=== PATIENT | female | born 1990 | race Caucasian/White ===

== ENCOUNTER 2023-06-15 15:56 | Emergency (ER) | payer OTHER, SELFPAY ==
[2023-06-15 16:17] VITALS: BP 140/86; PULSE 84; TEMP 36.7; O2SAT 99; BMI 25.9
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
== END 2023-06-15 18:17 | disposition home or self-care (01) ==
PROVIDERS: Emergency Provider Emergency Medicine
DX: S39.012A Strain of muscle, fascia and tendon of lower back, initial encounter (principal); V43.52XA Car driver injured in collision with other type car in traffic accident, initial encounter
CPT/HCPCS: 72100; 73502; 99283

== ENCOUNTER 2023-07-14 19:10 | Outpatient (REF) | payer OTHER, SELFPAY ==
--- OUTSIDE RECORDS SUMMARY | 2023-07-14 19:16 | XMS_ITS ---
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 Name Role Phone Gosia Garcias Primary Care Unavailable Jenn Gallegos Attending Unavailable Jenn Gallegos Unavailable ROSY JENN Primary Care Unavailable MEGAN, DR INFANTE Consulting Unavailable MEGAN, DR INFANTE Attending Unavailable MEGAN, DR INFANTE Admitting Unavailable MEGAN, DR INFANTE Attending Unavailable MEGAN, DR INFANTE Admitting Unavailable [facility] Care Unavailable [facility] Primary Care Unavailable PAY, DR MONTAÑO Attending Unavailable PAY, DR MONTAÑO Admitting Unavailable PAY, DR MONTAÑO Consulting Unavailable [facility] JENN Primary Care Unavailable MEGAN, DR INFANTE Attending Unavailable MEGAN, DR INFANTE Consulting Unavailable MEGAN, DR INFANTE Admitting Unavailable MEGAN, DR INFANTE Attending Unavailable MEGAN, DR INFANTE Admitting Unavailable MEGAN, DR INFANTE Consulting Unavailable MISC, DR ASKEW Primary Care Unavailable ZIEBER, DR FRANCIA Hyde Consulting Unavailable [facility] Primary Care Unavailable MEGAN, DR INFANTE Consulting Unavailable MEGAN, DR INFANTE Attending Unavailable MEGAN, DR INFANTE Admitting Unavailable [facility] Primary Care Unavailable MEGAN, DR INFANTE Attending Unavailable MEGAN, DR INFANTE Admitting Unavailable MEGAN, DR INFANTE Consulting Unavailable [facility] Primary Care Unavailable MEGAN, DR INFANTE Attending Unavailable MEGAN, DR INFANTE Admitting Unavailable MEGAN, DR INFANTE Consulting Unavailable MEGAN, DR INFANTE Procedure Practitioner Unavailab ADDISON Oliveira Consulting Unavailable CHELSY LABOY Consulting Unavailable MARINA HOSKINS Consulting [facility] Unavailable PERLA, LYDIA Admitting Unavailable PERLALYDIA MACARIO Consulting Unavailable PERLA LYDIA Attending Unavailable [facility] Care Unavailable PERLA, LYDIA Admitting Unavailable PERLA, LYDIA Consulting Unavailable PERLA, LYDIA Attending Unavailable PERLA, LYDIA Consulting Unavailable PERLA, LYDIA Attending Unavailable JENN GALLEGOS Primary Care Unavailable PERLA, LYDIA Admitting Unavailable MEGAN, DR NIFANTE Attending Unavailable MEGAN, DR INFANTE Admitting Unavailable MEGAN, DR INFANTE Consulting Unavailable JENN GALLEGOS Primary Care Unavailable ZIEBER, DR FRANCIA Hyde Consulting Unavailable MEGAN, DR INFANTE Attending Unavailable MEGAN, DR INFANTE Admitting Unavailable MISC, DR ASKEW Primary Care Unavailable MEGAN, DR INFANTE Consulting Unavailable ROSYJENN DURHAM Primary Care Unavailable MEGAN, DR INFANTE Attending Unavailable MEGAN, DR INFANTE Admitting Unavailable AUBURN, DR KASEY Horvath Consulting Unavailable MEGAN, DR INFANTE Consulting Unavailable MEGAN, DR INFANTE Attending Unavailable MEGAN, DR INFANTE Admitting Unavailable MEGAN, DR INFANTE Consulting Unavailable JENN GALLEGOS Primary Care Unavailable KEERTHIER, DR FRANCIA Hyde Consulting Unavailable Mike Estrada Unavailable Allergies Allergy Classification Reported Allergen(s) Allergy Type Date of Onset Reaction(s) Facility (5 sources) Sulfacetamide / Sulfur Drug Allergy rash [facility] Other (1 source) Penicillins Drug allergy (disorder) 4 [facility] (1 source) Sulfonamides (Antibiotic) Drug allergy (disorder) 4 [facility] Encounters Encounter Date Encounter Type Care Provider Facility Start: 02-24-2023 End: 02-24-2023 ambulatory Jenn Gallegos Other [facility] Other Start: 02-24-2023 Encounter for genera l adult medical examination without abnormal findings Jenn Rosy [facility] [place] Start: 02-24-2023 Periodic preventive med est patient 18-39 yrs Jenn Rosy [facility] [place] Start: 05-06-2022 End: 05-06-2022 ambulatory Jenn Gallegos Other [facility] Other Start: 05-06-2022 Office outpatient vi sit 15 minutes Jenn Gallegos [facility] Start: 03-10-2022 End: 03-10-2022 ambulatory JENN GALLEGOS Facility:[facility] Start: 02-11-2022 End: 02-11-2022 ambulatory Mike Estrada Other [facility] Other Start: 02-11-2022 Encounter for genera l adult medical examination without abnormal findings Mike Estrada [facility] Start: 02-11-2022 Periodic preventive med est patient 18-39 yrs Mike Natalie [facility] Start: 12-10-2021 End: 12-11-2021 ambulatory JENN GALLEGOS Facility:[facility] Start: 11-03-2021 End: 11-05-2021 Evaluation and management of inpatient JENN GALLEGOS Facility:[facility] Start: 11-02-2021 Encounter for preprocedural laboratory examination DR ARELIS BARRETO [facility] Start: 10-31-2021 End: 11-01-2021 ambulatory JENN GALLEGOS Facility:[facility] Start: 10-31-2021 End: 11-01-2021 Encounter for preprocedural laboratory examination JENN GALLEGOS Facility:[facility] Start: 10-14-2021 End: 10-14-2021 ambulatory JENN GALLEGOS Facility:[facility] Start: 08-28-2021 End: 08-29-2021 ambulatory JENN GALLEGOS Facility:[facility] Start: 08-18-2021 End: 08-19-[address] ARELIS BARRETO Facility:[facility] Start: 07-30-2021 End: 07-31-[address] ARELIS BARRETO Facility:[facility] Start: 07-28-[address] ARELIS BARRETO Facility :[facility] Start: 07-14-2021 End: 07-15-2021 ambulatory LYDIA DUNCAN Facility:[facility] Start: 06-18-2021 End: 06-19-2021 ambulatory JENN GALLEGOS Facility:[facility] Start: 05-29-2021 End: 05-29-2021 ambulatory JENN GALLEGOS Facility:[facility] Start: 05-25-2021 End: 05-25-[address] ARELIS BARRETO Facility:[facility] Start: 04-27-2021 End: 04-28-2021 ambulatory JENN GALLEGOS Facility:[facility] Start: 03-27-2021 End: 03-28-[address] ARELIS BARRETO Facility:[facility] Start: 02-11-2021 End: 02-11-2021 ambulatory Jenn Gallegos Other [facility] Other Start: 02-11-2021 Encounter for genera l adult medical examination without abnormal findings Jenn Gallegos [facility] [place] Start: 02-11-2021 Periodic preventive med est patient 18-39 yrs Jenn Gallegos [facility] [place] Start: 02-11-2021 Telephone encounter Jenn Rosy [facility] [place] Start: 01-03-2018 End: 01-03-2018 Patient encounter procedure Gosia Garcias Facility:[facility] Immunizations Immunization Date Immunization Notes Care Provider Fa darien 04-30-2020 COVID-19 Vaccine Pfi zer - Documentation Purposes Only Jenn Gallegos Other [facility] Other 04-09-2020 COVID-19 Vaccine Pfi zer - Documentation Purposes Only eJnn Gallegos Other [facility] Other 11-28-2019 influenza, injectabl e, quadrivalent, preservative free Jenn Gallegos Other [facility] Other Medications Current Medications Medication Drug Class(es) Dates Sig (Normalized) Sig (Original) Docusate (5 sources) Colace PRN Activ e Colace Not-Takin g Colace Active hydrOXYzine hydrochloride 25 mg oral tablet (3 sources) Antihistamine take 1 tablet by mouth once daily as needed for anxiety hydrOXYzine HCl 25 MG TAKE 1 TABLET BY MOUTH ONCE A DAY NEEDED FOR ANXIETY FOR 30 DAYS PRN Active Completed/Discontinued Medications Medication Drug Class(es) Dates Sig (Normalized) Sig (Original) [id number] 200 actuat albuterol 0.09 mg/actuat metered dose inhaler (5 sources) beta2-Adrenergic Agonist take 2 puff(s) by inhalation every six hours as needed Ventolin HFA 108 (90 Base) MCG/ACT 2 puffs as needed Inhalation every 6 hrs for 30 day(s) PRN Not-Taking/PRN Albuterol Sulfate (2.5 MG/ 3 ML) 2.5 MG/3ML 0.083% Nebulization Solution (5 sources) Albuterol Sulfat e (2.5 MG/ 3 ML) 2.5 MG/3ML 0.083% Nebulization Solution 3ml Inhalation 4 times a day as needed for 30 day(s) PRN Not-Taking/PRN Albuterol Sulfat e (2.5 MG/ 3 ML) 2.5 MG/3ML 0.083% Nebulization Solution 3ml Inhalation 4 times a day as needed for 30 day(s) PRN Not-Taking Albuterol Sulfat e (2.5 MG/ 3 ML) 2.5 MG/3ML 0.083% Nebulization Solution 3ml Inhalation 4 times a day as needed for 30 day(s) PRN Active clobetasol propionate 0.0005 mg/mg topical ointment (4 sources) Corticosteroid Start: 02-20-2020 Clobetasol Propionate 0.05 % 1 application Externally Twice a day for 10 day(s) PRN Feb, Not-Taking FLUoxetine 20 mg oral tablet (4 sources) Serotonin Reuptake Inhibitor take 1 tablet by mouth every twenty-four hours FLUoxetine HCl 20 MG 1 tablet Orally Once a day for 90 day(s) Not-Taking naproxen 500 mg oral tablet (2 sources) Nonsteroidal Anti-inflammatory Drug Start: 05-06-2022 take 1 tablet by mouth every twelve hours at mealtime as needed Naproxen 500 MG 1 tablet with food or milk as needed Orally every 12 hrs for 20 days Apr, Not-Taking/PRN Payers Date Payer Category Payer Private Health Insurance [id number] 2018 Self-pay 1990 Unknown [id number] 2.16.84 [id number] 1990 Unknown [id number] 2.16.84 [id number] 1990 Unknown [id number] 2.16.84 [id number] 1990 Unknown [id number] 2.16.84 0.1.345858.3.579.2.593 1990 Unknown [id number] 2.16.84 0.1.725855.3.579.2.593 1990 Unknown [id number] 2.16.84 0.1.729944.3.579.2.593 1990 Unknown [id number] 2.16.84 0.1.689793.3.579.2.593 1990 Unknown [id number] 2.16.84 0.1.645251.3.579.2.593 1990 Unknown [id number] 2.16.84 0.1.014537.3.579.2.593 1990 Unknown [id number] 2.16.84 0.1.525807.3.579.2.593 1990 Unknown [id number] 2.16.84 0.1.098551.3.579.2.593 1990 Unknown [id number] 2.16.84 0.1.777215.3.579.2.593 1990 Unknown [id number] 2.16.84 0.1.793426.3.579.2.593 1990 Unknown [id number] 2.16.84 [id number] 1990 Unknown [id number] 2.16.84 [id number] 1959 [facility] [id number] 1959 Medicaid [id number] 1959 Unknown [id number] Unknown [id number] 2.16.840. [id number] Problems Active Problems Problem Classification Problem Date Documented Date Episodic/Chronic Anxiety disorders (10 sources) Mixed anxiety and depressive disorder; Translations: [Other specified anxiety disorders] Onset: 02-11-2021 Resolved: 02-11-2021 Chronic Asthma (9 sources) Uncomplicated moderate persistent asthma; Translations: [Moderate persistent asthma, uncomplicated] Onset: 02-11-2021 Resolved: 02-11-2021 Chronic Diabetes mellitus without complication (1 source) Diabetes mellitus without complication; Translations: [Z13.1 - Encounter for screening for diabetes mellitus] Onset: 01-03-2018 Headache; including migraine (5 sources) Chronic tension-type headache; Translations: [Chronic tension-type headache, not intractable] Chronic Immunizations and screening for infectious disease (6 sources) Encounter for screening for human papillomavirus (HPV); Translations: [Encounter for screening for infections with a predominantly sexual mode of transmission] Onset: 04-27-2021 Episodic Menstrual disorders (4 sources) Irregular menstruation, unspecified; Translations: [IRREGULAR MENSTRUATION UNSPECIFIED] Onset: 03-27-2021 Chronic Other complications of ; puerperium affecting management of mother (1 source) Anemia complicating childbirth; Translations: [ANEMIA COMPLICATING CHILDBIRTH] Onset: 11-10-2021 Chronic Other complications of ; puerperium affecting management of mother (1 source) Obesity complicating childbirth; Translations: [OBESITY COMPLICATING CHILDBIRTH] Onset: 11-10-2021 Chronic Other connective tissue disease (1 source) Other enthesopathies, not elsewhere classified Episodic Other nutritional; endocrine; and metabolic disorders (1 source) Obesity, unspecified; Translations: [OBESITY UNSPECIFIED] Onset: 11-10-2021 Chronic Other screening for suspected conditions (not mental disorders or infectious disease) (13 sources) Encounter for screening for malignant neoplasm of cervix; Translations: [Encounter for screening for Streptococcus B] Onset: 06-18-2021 Episodic Other upper respiratory infections (4 sources) Acute frontal sinusitis; Translations: [Acute frontal sinusitis, unspecified] Episodic Unclassified (1 source) CONTACT W/AND (SUSP) EXPOS COVID-19; Translations: [CONTACT W/AND (SUSP) EXPOS COVID-19] Onset: 11-02-2021 Past or Other Problems Problem Classification Problem Date Documented Date Episodic/Chronic Deficiency and other anemia (1 source) Iron deficiency anemia, unspecified; Translations: [IRON DEFICIENCY ANEMIA UNSPECIFIED] Onset: 11-10-2021 Episodic E Codes: Cut/pierceb (1 source) Contact with other sharp object(s), not elsewhere classified, initial encounter; Translations: [[facility] OB NOT ELSW CLASS INI] Onset: 06-01-2021 Episodic Hemorrhage during ; abruptio placenta; placenta previa (8 sources) Low lying placenta NOS or without hemorrhage, unspecified trimester; Translations: [Complete placenta previa NOS or without hemorrhage, unspecified trimester] Onset: 07-30-2021 Episodic Other aftercare (1 source) Other fci (current) drug therapy; Translations: [OTH SOCIAL WORKER CURRENT DRUG THERAPY] Onset: 11-10-2021 Episodic Other complications of ; puerperium affecting management of mother (1 source) Diseases of the respiratory system complicating childbirth; Translations: [DISEASES RESP SYS COMP CHILDBIRTH] Onset: 11-10-2021 Episodic Other female genital disorders (4 sources) Other specified noninflammatory disorders of vagina; Translations: [[facility] SPEC NONINFLAMMATORY D/O VAGINA] Onset: 05-25-2021 Episodic Other and delivery including normal (2 sources) Single live ; Translations: [Encounter for supervision of normal , unspecified, first trimester] Onset: 04-01-2021 Episodic Previous (3 sources) Maternal care for unspecified type scar from previous delivery; Translations: [MAT CARE UNS TYPE SCAR PREV C-SECT] Onset: 11-03-2021 Episodic Residual codes; unclassified (4 sources) Contact with and (suspected) exposure to potentially hazardous body fluids; Translations: [CONTACT AND EXPOS POTENTL HAZ BDY FLUID] Onset: 12-10-2021 Episodic Residual codes; unclassified (1 source) 39 weeks gestation of ; Translations: [39 WEEKS GESTATION OF ] Onset: 11-10-2021 Episodic Residual codes; unclassified (1 source) Less than 8 weeks gestation of ; Translations: [< 8 WEEKS GESTATION ] Onset: 04-01-2021 Episodic Screening and history of mental health and substance abuse codes (1 source) Personal history of nicotine dependence; Translations: [PERSONAL HISTORY OF NICOTINE DEPEND] Onset: 11-10-2021 Episodic Superficial injury; contusion (4 sources) Abrasion of left hand, initial encounter; Translations: [ABRASION LEFT HAND INITIAL ENC] Onset: 05-29-2021 Episodic Procedures Date Procedure Procedure Detail Performing Clinician Start: 11-03-2021 Extraction of Produc ts of Conception, Low Cervical, Open Approach JENN GALLEGOS Results Test Name Value Interpretation Reference Range Facility PAP ACOG PANEL 2: 30 to 65on 03-16-2022 . . Normal [facility] Comment on above: Result Comment: Perf ormed at: WB Performed By: #### H IV12 #### [facility] [address] [address] [address] Nolvia Ruvalcaba Age Gdln ACOG Testing 30-65 Normal [facility] Comment on above: Performed By: #### H IV12 #### [facility] [address] [address] [address] Nolvia Ruvalcaba DIAGNOSIS: Comment Normal [facility] Comment on above: Result Comment: NEGA TIVE FOR INTRAEPITHELIAL LESION OR MALIGNANCY. Performed at: WB Performed By: #### H IV12 #### [facility] [address] [address] [address] Nolvia Ruvalcaba HPV Aptima Negative Normal Negative [facility] Comment on above: Result Comment: This nucleic acid amplification test detects fourteen high-risk HPV types (16,18,31,33,35,39,45,51,52,56,58,59,66,68) without differentiation. Performed at: =G Performed By: #### H IV12 #### [facility] [address] [address] [address] Nolvia Ruvalcaba HPV Genotype Reflex Comment Normal [facility] Comment on above: Result Comment: Crit eria not met, HPV Genotype not performed. Performed at: WB Performed By: #### H IV12 #### [facility] [address] [address] [address] Nolvia Ruvalcaba Methodology: Comment Normal [facility] Comment on above: Result Comment: This liquid based ThinPrep(R) pap test was screened with the use of an image guided system. Performed at: WB Performed By: #### H IV12 #### [facility] [address] [address] [address] Nolvia Ruvalcaba Note: Comment Normal [facility] Comment on above: Result Comment: The Pap smear is a screening test designed to aid in the detection of premalignant and malignant conditions of the uterine cervix. It is not a diagnostic procedure and should not be used as the sole means of detecting cervical cancer. Both false-positive and false-negative reports do occur. . Performed at: WB Performed By: #### H IV12 #### [facility] [address] [place] [address] Dr. Nolvia Ruvalcaba Performed by: Comment Normal [facility] Comment on above: Result Comment: Angel Sanchez Service Control Operator (ASCP) Performed at: WB Performed By: #### H IV12 #### [facility] [address] [place] [address] Dr. Nolvia Ruvalcaba Specimen adequacy: Comment Normal [facility] Comment on above: Result Comment: Sati sfactory for evaluation. Endocervical and/or squamous metaplastic cells (endocervical component) are present. Performed at: WB Performed By: #### H IV12 #### [facility] [address] [place] [address] Dr. Nolvia Ruvalcaba HEPATITIS C ANTIBODYon 12-11 Hep C Virus Ab <0.1 Normal 0.0-0.9 [facility] Comment on above: Result Comment: Nega tive: < 0.8 Indeterminate: 0.8 - 0.9 Positive: > 0.9 . HCV antibody alone does not differentiate between previous resolved infection and active infection. The CDC and current clinical guidelines recommend that a positive HCV antibody result be followed up with an HCV RNA test to support the diagnosis of acute HCV infection. [facility] offers Hepatitis C Virus (HCV) RNA, Diagnosis, THERON (739333) and Hepatitis C Virus (HCV) Antibody with reflex to Quantitative Real-time PCR (100569). Performed By: #### H IV12 #### [facility] [address] [place] [address] Dr. Nolvia Ruvalcaba HIV 1 AND 2 WITH REFLEXon HIV Screen 4th Generation wRfx Non-Reactive Normal Non Reactive [facility] Comment on above: Result Comment: HIV Negative HIV-1/HIV-2 antibodies and HIV-1 p24 antigen were NOT detected. There is no laboratory evidence of HIV infection. Performed By: #### H IV12 #### [facility] [address] [place], [place] [address] Dr. Nolvia Ruvalcaba SGPTon 12-10-2021 ALT [Catalytic activity/Vol] 59 U/L Normal 14-59 [facility] Comment on above: Performed By: #### A LT ####[facility] [address] [place], [place] [address]DrDinorah Ruvalcaba CBC AUTO DIFFon 11-04-2021 BASO # 0.1 103/ul Normal 0.0-0.1 [facility] Comment on above: Performed By: #### C BC ####[facility] [address] [address]DrDinorah Ruvalcaba Basophils/100 WBC (Bld) 0.4 % Normal 0.2-2.0 [facility] Comment on above: Performed By: #### C BC ####[facility] [address] [place], [place] [address]Dr. Nolvia Ruvalcaba EO # 0.2 103/ul Normal 0.0-0.7 [facility] Comment on above: Performed By: #### C BC ####[facility] [address] [place], [place] [address]DrDinorah Ruvalcaba Eosinophils/100 WBC (Bld) 1.3 % Normal 0.9-7.0 [facility] Comment on above: Performed By: #### C BC ####[facility] [address] [place], [place] [address]DrDinorah Ruvalcaba Erythrocyte distribution width (RBC) [Ratio] 14.2 % Normal 11.0-15.0 [facility] Comment on above: Performed By: #### C BC ####[facility] [address] [place], [place] [address]DrDinorah Ruvalcaba Hematocrit (Bld) [Volume fraction] 28.8 % Critically low 36.0-48.0 [facility] Comment on above: Performed By: #### C BC ####[facility] [address] [place], [place] [address]DrDinorah Ruvalcaba Hemoglobin (Bld) [Mass/Vol] 9.0 g/dL Critically low 12.0-16.0 [facility] Comment on above: Performed By: #### C BC ####[facility] [address] [address]DrDinorah Ruvalcaba IG # 0.16 10e3/ul Critically high 0.00-0.03 [facility] Comment on above: Performed By: #### C BC ####[facility] [address] [address]DrDinorah Ruvalcaba IG % 1.1 % Critically high 0.0-0.5 [facility] Comment on above: Performed By: #### C BC ####[facility] [address] [place], [place] [address]DrDinorah Ruvalcaba LYMPH # 1.8 103/ul Normal 1.2-3.8 [facility] Comment on above: Performed By: #### C BC ####[facility] [address] [address]DrDinorah Ruvalcaba Lymphocytes/100 WBC (Bld) 12.4 % Critically low 20.5-60.0 [facility] Comment on above: Performed By: #### C BC ####[facility] [address] [address]DrDinorah Ruvalcaba MANUAL DIFF REQ NO Normal [facility] Comment on above: Performed By: #### C BC ####[facility] [address] [address]DrDinorah Ruvalcaba MCH (RBC) [Entitic mass] 28.6 pg Normal 26.7-34.0 [facility] Comment on above: Performed By: #### C BC ####[facility] [address] [address]DrDinorah Ruvalcaba MCHC (RBC) [Mass/Vol] 31.3 g/dL Normal 29.9-35.2 [facility] Comment on above: Performed By: #### C BC ####[facility] [address] [address]DrDinorah Ruvalcaba MCV (RBC) [Entitic vol] 91.4 fL Normal 81.0-99.0 [facility] Comment on above: Performed By: #### C BC ####[facility] [address] [address]DrDinorah Ruvalcaba MONO # 1.0 103/ul Critically high 0.3-0.8 [facility] Comment on above: Performed By: #### C BC ####[facility] [address] [address]DrDinorah Ruvalcaba Monocytes/100 WBC (Bld) 6.9 % Normal 1.7-12.0 [facility] Comment on above: Performed By: #### C BC ####[facility] [address] [address]DrDinorah Ruvalcaba NEUT # 11.3 103/ul Critically high 1.4-6.5 [facility] [place] [facility] Comment on above: Performed By: #### C BC ####[facility] [address] [place], [place] [address]DrDinorah Ruvalcaba Neutrophils/100 WBC (Bld) 77.9 % Critically high 43.0-75.0 [facility] Comment on above: Performed By: #### C BC ####[facility] [address] [place], [place] [address]DrDinorah Ruvalcaba Platelet mean volume (Bld) [Entitic vol] 9.8 fL Normal 9.5-13.5 [facility] Comment on above: Performed By: #### C BC ####[facility] [address] [address]Dr. Nolvia Ruvalcaba PLT 242 103/ul Normal 150-450 [facility] Comment on above: Performed By: #### C BC ####[facility] [address] [id number] Ruvalcaba RBC 3.15 106/ul Critically low 4.20-5.40 [facility] Comment on above: Performed By: #### C BC ####[facility] [address] [id number] Ruvalcaba WBC 14.6 103/ul Critically high 4.0-11.0 [facility] [place] [facility] Comment on above: Performed By: #### C BC ####[facility] [address] [address]Dr. Nolvia Jordon CBC AUTO DIFFon 11-03-2021 BASO # 0.1 103/ul Normal 0.0-0.1 [facility] Comment on above: Performed By: #### C BC ####[facility] [address] [address]Dr. Nolvia Ruvalcaba Basophils/100 WBC (Bld) 0.3 % Normal 0.2-2.0 [facility] Comment on above: Performed By: #### C BC ####[facility] [address] [place], [place] [address]Dr. Nolvia Ruvalcaba EO # 0.1 103/ul Normal 0.0-0.7 [facility] Comment on above: Performed By: #### C BC ####[facility] [address]wepjvwc[address] [place], [place] [address]Dr. Nolvia Ruvalcaba Eosinophils/100 WBC (Bld) 1.0 % Normal 0.9-7.0 [facility] Comment on above: Performed By: #### C BC ####[facility] Sqqhexuvea[address] [place], [place] [address]Dr. Nolvia Ruvalcaba Erythrocyte distribution width (RBC) [Ratio] 14.2 % Normal 11.0-15.0 [facility] Comment on above: Performed By: #### C BC ####[facility] Mpuyzykeyh308[address] [place], [place] [address]Dr. Nolvia Ruvalcaba Hematocrit (Bld) [Volume fraction] 33.5 % Critically low 36.0-48.0 [facility] Comment on above: Performed By: #### C BC ####[facility] Rxldampkml9814[address] [place], [place] [address]Dr. Nolvia Ruvalcaba Hemoglobin (Bld) [Mass/Vol] 10.9 g/dL Critically low 12.0-16.0 [facility] Comment on above: Performed By: #### C BC ####[facility] Ypxumzwfim620[address] [place], [place] [address]DrDinorah Nickersonyaniv Jordon IG # 0.22 10e3/ul Critically high 0.00-0.03 [facility] Comment on above: Performed By: #### C BC ####[facility] [address] [place] [address]DrDinorah Nolvia Jordon IG % 1.5 % Critically high 0.0-0.5 [facility] Comment on above: Performed By: #### C BC ####[facility] [address] [place] [address]DrDinorah Nickersonyaniv Jordon LYMPH # 2.3 103/ul Normal 1.2-3.8 [facility] Comment on above: Performed By: #### C BC ####[facility] Kljuuygnnn[address] [place], [place] [address]DrDinorah Ruvalcaba Lymphocytes/100 WBC (Bld) 16.1 % Critically low 20.5-60.0 [facility] Comment on above: Performed By: #### C BC ####[facility] Nfiukgwhde[address] [place], [place] [address]DrDinorah Liyayaniv Ruvalcaba MANUAL DIFF REQ NO Normal [facility] Comment on above: Performed By: #### C BC ####[facility] Ufvimkqwni7[address] [place], [place] [address]DrDinorah Nolvia Jordon MCH (RBC) [Entitic mass] 29.0 pg Normal 26.7-34.0 [facility] Comment on above: Performed By: #### C BC ####[facility] Ytluvmxcgn654[address] [place], [place] [address]DrDinorah Nolvia Jordon MCHC (RBC) [Mass/Vol] 32.5 g/dL Normal 29.9-35.2 [facility] Comment on above: Performed By: #### C BC ####[facility] Qyfgczyuzw52[address] [place], [place] [address]DrDinorah Nolvia Jordon MCV (RBC) [Entitic vol] 89.1 fL Normal 81.0-99.0 [facility] Comment on above: Performed By: #### C BC ####[facility] Jqqseosqbf[address] [place], [place] [address]DrDinorah Ruvalcaba MONO # 1.0 103/ul Critically high 0.3-0.8 [facility] Comment on above: Performed By: #### C BC ####[facility] [address] [place] [address]Dr. Nolvia Ruvalcaba Monocytes/100 WBC (Bld) 7.0 % Normal 1.7-12.0 [facility] Comment on above: Performed By: #### C BC ####[facility] [address] [place] [address]Dr. Nolvia Ruvalcaba NEUT # 10.6 103/ul Critically high 1.4-6.5 [facility] Comment on above: Performed By: #### C BC ####[facility] Gtxgujchal208[address] [place], [place] [address]Dr. Nolvia Ruvalcaba Neutrophils/100 WBC (Bld) 74.1 % Normal 43.0-75.0 [facility] Comment on above: Performed By: #### C BC ####[facility] Bzyjmlsnbh[address] [place], [place] [address]Dr. Nolvia Ruvalcaba Platelet mean volume (Bld) [Entitic vol] 10.4 fL Normal 9.5-13.5 [facility] Comment on above: Performed By: #### C BC ####[facility] [address] [place] [address]Dr. Nolvia Ruvalcaba PLT 320 103/ul Normal 150-450 [facility] Comment on above: Performed By: #### C BC ####[facility] Ihqfdrawyk[address] [place], [place] [address]Dr. Nolvia Ruvalcaba RBC 3.76 106/ul Critically low 4.20-5.40 [facility] Comment on above: Performed By: #### C BC ####[facility] Guvbnrzppl[address] [place], [place] [address]Dr. Nolvia Ruvalcaba WBC 14.3 103/ul Critically high 4.0-11.0 [facility] Comment on above: Performed By: #### C BC ####[facility] S[address]uglmycwn[address] [place], [place] [address]Dr. Nolvia Ruvalcaba CULTURE URINEon 11-03-2021 CULTURE URINE Culture Observations : NO GROWTH. Normal [facility] Comment on above: Performed By: #### U RCX #### [facility] [id number] Nolvia Ruvalcaba DRUG SCREEN RAPID (URINE)on 11-03-2021 AMP Negative Normal NEGATIVE [facility] Comment on above: Performed By: #### D RUGRPD ####[facility] [address] [place] [address]Dr. Nolvia Ruvalcaba BAR Negative Normal NEGATIVE [facility] Comment on above: Performed By: #### D RUGRPD ####[facility] [address] [place] [address]Dr. Nolvia Ruvalcaba BUP Negative Normal NEGATIVE [facility] Comment on above: Performed By: #### D RUGRPD ####[facility] [address] [place] [address]Dr. Nolvia Ruvalcaba BZO Negative Normal NEGATIVE [facility] Comment on above: Performed By: #### D RUGRPD ####[facility] [address] [place] [address]Dr. Nolvia Ruvalcaba MARIO Negative Normal NEGATIVE [facility] Comment on above: Performed By: #### D RUGRPD ####[facility] [address] [place] [address]Dr. Nolvia Ruvalcaba CUT-OFFS SEE BELOW Normal [facility] Comment on above: Result Comment: AMP (Amphetamine): 500ng/mL, BAR (Barbituates): 200 ng/mL, BZO (Benzodiazepines): 150 ng/mL, BUP (Buprenorphine): 10 ng/mL, MARIO (Cocaine): 150 ng/mL, mAMP (Methamphetamine): 500 ng/mL, MTD (Methadone): 200 ng/mL, OPI (Opiates): 100 ng/mL, OXY (Oxycodone): 100 ng/mL, PCP (Phencyclidine): 25 ng/mL, PPX (Propoxyphene): 300 ng/mL, THC (Cannabinoids): 50 ng/mL, TCA (Trycyclic Antidepressants): 300 ng/mL Performed By: #### D RUGRPD ####[facility] [address] [place] [id number]. Nolvia Ruvalcaba DRUG CUT HEADER DRUG CLASS TEST SYSTEM CUT-OFF CONCENTRATIONS ARE FOLLOWS: Normal [facility] Comment on above: Performed By: #### D RUGRPD ####[facility] [address] [place] [id number]. Nolvia Ruvalcaba mAMP Negative Normal NEGATIVE [facility] Comment on above: Performed By: #### D RUGRPD ####[facility] [address]psq[address] [place] [id number]. Nolvia Ruvalcaba MTD Negative Normal NEGATIVE [facility] Comment on above: Performed By: #### D RUGRPD ####[facility] Lwtmevjrfr[address] [place], [place] [address]Dr. Yiyaniv Ruvalcaba OPI Negative Normal NEGATIVE [facility] Comment on above: Performed By: #### D RUGRPD ####[facility] Fgtbuwxmve[address] [place], [place] [address]Dr. Yilan Ruvalcaba OXY Negative Normal NEGATIVE [facility] Comment on above: Performed By: #### D RUGRPD ####[facility] Fkwjwruakx[address] [place], [place] [address]Dr. Nolvia Ruvalcaba PCP Negative Normal NEGATIVE [facility] Comment on above: Performed By: #### D RUGRPD ####[facility] [address] [place] [id number]. Yilan Ruvalcaba PPX Negative Normal NEGATIVE [facility] Comment on above: Performed By: #### D RUGRPD ####[facility] [address] [place] [id number]. Yiyaniv Ruvalcaba TCA Negative Normal NEGATIVE [facility] Comment on above: Performed By: #### D RUGRPD ####[facility] Mg[address]psapbbf[address] [place], [place] [address]Dr. Nolvia Ruvalcaba THC Negative Normal NEGATIVE [facility] Comment on above: Performed By: #### D RUGRPD ####[facility] Vfkanphbob[address] [place], [place] [address]Dr. Liyalan Ruvalcaba TYPE AND SCREENon 11-03-2021 TYPE AND SCREEN Negative Normal [facility] Comment on above: Performed By: #### T NS #### [facility] [address] [address] [address] Nolvia Ruvalcaba UA (CLEAN/CATCH) SURGICAL SCRUB TECHNOLOGIST/MICRO I F IND.on 11-03-2021 Bilirubin Ql (U) Negative Normal NEGATIVE [facility] Comment on above: Performed By: #### U MICRO, UACSIND ####[facility] [address] [place] [address]Dr. Nolvia Ruvalcaba Clarity (U) SL CLOUDY Abnormal CLEAR [facility] Comment on above: Performed By: #### U MICRO, UACSIND ####[facility] [address] [place] [address]Dr. Nolvia Ruvalcaba Color (U) LT. YELLOW Normal YELLOW [facility] Comment on above: Performed By: #### U MICRO, UACSIND ####[facility] [address] [place] [address]Dr. Nolvia Ruvalcaba Glucose Ql (U) Negative Normal NEGATIVE The [facility] Comment on above: Performed By: #### U MICRO, UACSIND ####[facility] [address] [place] [address]Dr. Nolvia Ruvalcaba Hemoglobin Ql (U) SMALL Abnormal NEGATIVE The [facility] Comment on above: Performed By: #### U MICRO, UACSIND ####[facility] [address] [place] [address]Dr. Nolvia Ruvalcaba Ketones Ql (U) Negative Normal NEGATIVE The [facility] Comment on above: Performed By: #### U MICRO, UACSIND ####[facility] [address] [place] [address]Dr. Nolvia Ruvalcaba LEUKOCYTES SMALL Abnormal NEGATIVE [facility] Comment on above: Performed By: #### U MICRO, UACSIND ####[facility] [address] [place] [address]Dr. Nolvia Ruvalcaba Nitrite Ql (U) Negative Normal NEGATIVE The [facility] Comment on above: Performed By: #### U MICRO, UACSIND ####[facility] [address]pec[address] [place] [address]Dr. Nolvia Ruvalcaba pH (U) 6.0 [pH] Normal 5-9 [facility] Comment on above: Performed By: #### U MICRO, UACSIND ####[facility] [address]sp[address] [place] [address]Dr. Nolvia Ruvalcaba SPEC GRAVITY >=1.030 Abnormal 1.005-<=1.025 [facility] Comment on above: Performed By: #### U MICRO, UACSIND ####[facility] [address] [place] [address]Dr. Nolvia Ruvalcaba UA PROTEIN Negative Normal NEGATIVE/ TRACE [facility] Comment on above: Performed By: #### U MICRO, UACSIND ####[facility] [address] [place] [address]Dr. Nolvia Ruvalcaba UR MICRO IND INDICATED Normal [facility] Comment on above: Performed By: #### U MICRO, UACSIND ####[facility] [address] [place] [address]Dr. Nolvia Ruvalcaba Urobilinogen Qn (U) 0.2 {Cami'U}/dL Normal 0.2 - 1. 0 [facility] Comment on above: Performed By: #### U MICRO, UACSIND ####[facility] Mgkginmkph[address] [place], [place] [address]Dr. Nolvia Ruvalcaba URINE MICROSCOPIC ONLYon BACTERIA MODERATE Abnormal NONE SEEN [facility] Comment on above: Performed By: #### U MICRO, UACSIND ####[facility] Xsivaiggfq[address] [place], [place] [address]Dr. Nolvia Ruvalcaba Bacteria identified Cx Nom (U) INDICATED Normal [facility] Comment on above: Performed By: #### U MICRO, UACSIND ####[facility] T[address]dv[address]fdq[address] [place], [place] [address]Dr. Nolvia Ruvalcaba CAST NONE SEEN Normal NONE SEEN [facility] Comment on above: Performed By: #### U MICRO, UACSIND ####[facility] Wyudwewbbp[address] [place], [place] [address]Dr. Nolvia Ruvalcaba Crystals LM Nom (Urine sed) NONE SEEN Normal NONE SEEN [facility] Comment on above: Performed By: #### U MICRO, UACSIND ####[facility] [address] [place] [address]Dr. Nolvia Ruvalcaba Epithelial cells LM Ql (Urine sed) MODERATE Abnormal NONE SEEN /RARE [facility] Comment on above: Performed By: #### U MICRO, UACSIND ####[facility] [address] [place] [id number]. Nolvia Ruvalcaba MUCOUS NONE SEEN Normal NONE SEEN [facility] Comment on above: Performed By: #### U MICRO, UACSIND ####[facility] [address] [place] [address]Dr. Liyayaniv Ruvalcaba RBC 2-5 Abnormal 0-2 [facility] Comment on above: Performed By: #### U MICRO, UACSIND ####[facility] [address] [place] [address]Dr. Nolvia Ruvalcaba WBC 5-10 Abnormal NONE SEEN [facility] Comment on above: Performed By: #### U MICRO, UACSIND ####[facility] [address] [place] [address]Dr. Nolvia Ruvalcaba [facility]on [facility]-15 SARS-CoV-2 (COVID-19) RNA THERON+probe Ql (Unsp spec) Not detected Normal NOT DETECTED [facility] Comment on above: Result Comment: This test is not yet approved or cleared by the [place] FDA. When there are no FDA-approved or cleared tests available, and other criteria are met, FDA can make tests available under an emergency access mechanism called an Emergency Use Authorization (EUA). The EUA for this test is supported by the Professor Of Geology of Health and Human Service's (HHS's) declaration that circumstances exist to justify the emergency use of in vitro diagnostics for the detection and/or diagnosis of the virus that causes COVID-19. This EUA will remain in effect (meaning this test can be used) for the duration of the COVID-19 declaration justifying emergency of IVDs, unless it is terminated or revoked by FDA (after which the test may no longer be used). When diagnostic testing is negative, the possibility of a false negative should be considered in the context of a patient's recent exposures and the presence of clinical signs and symptoms consistent with SARS-CoV-2. Performed By: #### H IV12 #### [facility] [address] [address] [address] Nolvia Ruvalcaba GROUP B STREP CULTUREon 09-16 S. agalactiae Ag Ql (Unsp spec) Culture Observations: NEGATIVE FOR GROUP B STREPTOCOCCUS. Normal [facility] Comment on above: Performed By: #### G BSCX #### [facility] [address] [address] [address] Nolvia Ruvalcaba HEP C RNA BY PCR QUANT (NON- GRAPHICAL) Won 08-29-2021 HCV Genotype RTNI Normal [facility] Comment on above: Result Comment: Not indicated Performed By: #### H CVPCRN ####[facility] [address] [place] [address]DrDinorah Ruvalcaba HCV log10 UPTCAL Normal [facility] Comment on above: Result Comment: Unab le to calculate result since non-numeric result obtained for component test. Performed By: #### H CVPCRN ####[facility] [address] [place] [address]DrDinorah Ruvalcaba Hepatitis C Quantitation Not detected Normal [facility] Comment on above: Performed By: #### H CVPCRN ####[facility] [address] [place] [address]DrDinorah Ruvalcaba Test Information: Comment Normal [facility] Comment on above: Result Comment: The quantitative range of this assay is 15 IU/mL to 100 million IU/mL. Performed By: #### H CVPCRN ####[facility] [address] [place] [address]DrDinorah Ruvalcaba HIV 1 AND 2 WITH REFLEXon HIV Screen 4th Generation wRfx Non-Reactive Normal Non Reactive [facility] Comment on above: Result Comment: HIV Negative HIV-1/HIV-2 antibodies and HIV-1 p24 antigen were NOT detected. There is no laboratory evidence of HIV infection. Performed By: #### A 1C #### [facility] [address] [address] [address] Nolvia Ruvalcaba RPR QUANTon 08-29-2021 Rapid Plasma Reagin, Quant Non-Reactive Normal NonRea<1:1 [facility] Comment on above: Result Comment: Meghna desai Note: This test does not meet current guidelines for screening and diagnosis of syphilis. This test is intended for following treatment response in patients being treated for syphilis infection. To screen for syphilis infection, a reflex cascade that includes both RPR and a treponema-specific assay should be utilized, such as Treponema pallidum (Syphilis) Screening Baker (968908) or Rapid Plasma Reagin (RPR) Test With Reflex to Quantitative RPR and Confirmatory Treponema pallidum Antibodies (527415). Performed By: #### H IV12 #### [facility] [address] [place] [address] Dr. Nolvia Ruvalcaba GLUCOSE - 1HRon 08-18-2021 Glucose [Mass/Vol] 124 mg/dL Critically high 74-106 [facility] Comment on above: Performed By: #### G LU1HR ####[facility] [address] [place] [address]Dr. Nolvia Ruvalcaba HEMOGRAM AND PLATELon 2021 Hematocrit (Bld) [Volume fraction] 33.2 % Critically low 36.0-48.0 [facility] Comment on above: Performed By: #### H IV12 #### [facility] [address] [place] [address] Dr. Nolvia Ruvalcaba Hemoglobin (Bld) [Mass/Vol] 10.5 g/dL Critically low 12.0-16.0 [facility] Comment on above: Performed By: #### H IV12 #### [facility] [address] [place] [address] Dr. Nolvia Ruvalcaba MCH (RBC) [Entitic mass] 29.4 pg Normal 26.7-34.0 [facility] Comment on above: Performed By: #### H IV12 #### [facility] [address] [place] [address] Dr. Nolvia Ruvalcaba MCHC (RBC) [Mass/Vol] 31.6 g/dL Normal 29.9-35.2 [facility] Comment on above: Performed By: #### H IV12 #### [facility] [address] [address] [address] Nolvia Ruvalcaba MCV (RBC) [Entitic vol] 93.0 fL Normal 81.0-99.0 [facility] Comment on above: Performed By: #### H IV12 #### [facility] [address] [address] [address] Nolvia Ruvalcaba PLT 303 103/ul Normal 150-450 [facility] Comment on above: Performed By: #### H IV12 #### [facility] [address] [address] [address] Nolvia Ruvalcaba RBC 3.57 106/ul Critically low 4.20-5.40 [facility] Comment on above: Performed By: #### H IV12 #### [facility] [address] [address] [address] Nolvia Ruvalcaba WBC 12.3 103/ul Critically high 4.0-11.0 [facility] Comment on above: Performed By: #### H IV12 #### [facility] [address] [place] [address] Dr. Nolvia Ruvalcaba US PREG PLACENTAon 2 US PREG PLACENTA EXAMINATION: US PREG PLACENTA HISTORY: Low lying placenta COMPARISON: Ultrasound placenta 07/30/2021 FINDINGS: PLACENTA: Posterior with lower margin 3.8 cm from os. CERVIX LENGTH: 4.6 cm; closed. HEART RATE: 138 bpm OTHER: None. IMPRESSION: 1. Posterior placenta which is no longer low-lying. Electronically authenticated by: FRANCIA CRENSHAW Date: 2021-08-18 16:15 Normal [facility] US PREG PLACENTAon 2 US PREG PLACENTA EXAMINATION: US PREG PLACENTA HISTORY: Placenta previa without hemorrhage COMPARISON: Ultrasound anatomy 06/18/2021 FINDINGS: PLACENTA: Posterior, grade 1, with lower margin 2.5 cm from os. CERVIX LENGTH: 3.7 cm, closed. HEART RATE: 134 bpm OTHER: None. IMPRESSION: 1. Low lying posterior placenta with margin 2.5 cm from os. Electronically authenticated by: FRANCIA CRENSHAW Date: 2021-07-30 17:39 Normal [facility] HEP C RNA BY PCR QUANT (NON- GRAPHICAL) Won 07-16-2021 HCV Genotype RTNI Normal [facility] Comment on above: Result Comment: Not indicated Performed By: #### H CVPCRN ####[facility] [address]vnswx[address] [place], [place] [address]Dr. Nolvia Ruvalcaba HCV log10 UPTCAL Normal [facility] Comment on above: Result Comment: Unab le to calculate result since non-numeric result obtained for component test. Performed By: #### H CVPCRN ####[facility] [address]ju[address] [place], [place] [address]Dr. Nolvia Ruvalcaba Hepatitis C Quantitation Not detected Normal [facility] Comment on above: Performed By: #### H CVPCRN ####[facility] Q[address]zrlqe[address] [place], [place] [address]Dr. Nolvia Ruvalcaba Test Information: Comment Normal [facility] Comment on above: Result Comment: The quantitative range of this assay is 15 IU/mL to 100 million IU/mL. Performed By: #### H CVPCRN ####[facility] [address]jsxsubu[address] [place], [place] [address]Dr. Nolvia Ruvalcaba HIV 1 AND 2 WITH REFLEXon HIV Screen 4th Generation wRfx Non-Reactive Normal Non Reactive [facility] Comment on above: Result Comment: HIV Negative HIV-1/HIV-2 antibodies and HIV-1 p24 antigen were NOT detected. There is no laboratory evidence of HIV infection. Performed By: #### H IV12 ####[facility] [address]tm[address]zpyks[address] [place], [place] [address]Dr. Nolvia Ruvalcaba RPR QUANTon 07-15-2021 Rapid Plasma Reagin, Quant Non-Reactive Normal NonRea<1:1 [facility] Comment on above: Result Comment: Plea se Note: This test does not meet current guidelines for screening and diagnosis of syphilis. This test is intended for following treatment response in patients being treated for syphilis infection. To screen for syphilis infection, a reflex cascade that includes both RPR and a treponema-specific assay should be utilized, such as Treponema pallidum (Syphilis) Screening Baker (001533) or Rapid Plasma Reagin (RPR) Test With Reflex to Quantitative RPR and Confirmatory Treponema pallidum Antibodies ([id number]). Performed By: #### R PRQ #### [facility] [address] [address] [address] Nolvia Ruvalcaba US PREG ANATOMY SINGLEon US PREG ANATOMY SINGLE EXAMINATION: US PREG ANATOMY SINGLE HISTORY: screening COMPARISON: No relevant comparison available. TECHNIQUE: Transabdominal sonographic examination was performed for obstetrical and evaluation. FINDINGS: Number: 1 Heart Rate: 144.0 bpm H.B. /min Amniotic Fluid Volume: Subjectively normal position: Breech presentation, longitudinal lie Placental Location: Posterior. Grade 0. The placenta edge is at the internal cervical os Cervix Length: 4.6 cm, closed Normally visualized anatomy: Cerebellum, choroid plexus, cisterna magna, lateral cerebral ventricles, orbits, midline falx, hard palate, four-chamber heart, RVOT, LVOT, stomach, kidneys, bladder, umbilical cord insertion into the abdomen, three-vessel cord, cervical spine, thoracic spine, lumbar spine, sacral spine, right upper extremity, left upper extremity, right lower extremity, left lower extremity Suboptimally visualized anatomy: None BIOMETRY: BPD: 4.4 cm 19 weeks 3 days , 13% HC: 16.7 cm 19 weeks 3 days, 6% AC: 14.9 cm 20 weeks 1 days, 34% FL: 3.2 cm 19 weeks 6 days, 21% EFW:319.2 grams; 11 ounces, 19% FL/AC: 21.2 FL/BPD: 71.1 HC/AC: 1.1 GESTATIONAL AGE: Age by EDC: 20 weeks 3 days BRO by EDC: 11/02/2021 Age by current US: 19 weeks 5 days BRO by current US: 11/07/2021 IMPRESSION: Normal anatomy scan *Reference: [employer] Practice Guideline for the performance of Obstetric Ultrasound Examinations, November 14, 2006. Electronically authenticated by: KASEY NYE Date: 2021-06-18 16:55 Normal [facility] HEP B SURFACE AB QUALITATIVE on 05-30-2021 Hep B Surface Ab, Qual Reactive Normal [facility] Comment on above: Result Comment: Non Reactive: Inconsistent with immunity, less than 10 mIU/mL Reactive: Consistent with immunity, greater than 9.9 mIU/mL Performed By: #### H BSABQL ####[facility] [address] [place] [id number]. Nolvia Ruvalcaba HEPATITIS C ANTIBODYon 05-30 Hep C Virus Ab <0.1 Normal 0.0-0.9 [facility] Comment on above: Result Comment: Nega tive: < 0.8 Indeterminate: 0.8 - 0.9 Positive: > 0.9 . The CDC recommends that a positive HCV antibody result be followed up with a HCV Nucleic Acid Amplification test ([id number]). Performed By: #### H IV12 #### [facility] [address] [address] [address] Nolvia Ruvalcaba HIV 1 AND 2 WITH REFLEXon HIV Screen 4th Generation wRfx Non-Reactive Normal Non Reactive [facility] Comment on above: Result Comment: HIV Negative HIV-1/HIV-2 antibodies and HIV-1 p24 antigen were NOT detected. There is no laboratory evidence of HIV infection. Performed By: #### H IV12 ####[facility] [address] [id number]. Nolvia Ruvalcaba RPR QUANTon 05-30-2021 Rapid Plasma Reagin, Quant Non-Reactive Normal NonRea<1:1 [facility] Comment on above: Result Comment: Plea se Note: This test does not meet current guidelines for screening and diagnosis of syphilis. This test is intended for following treatment response in patients being treated for syphilis infection. To screen for syphilis infection, a reflex cascade that includes both RPR and a treponema-specific assay should be utilized, such as Treponema pallidum (Syphilis) Screening Baker (670399) or Rapid Plasma Reagin (RPR) Test With Reflex to Quantitative RPR and Confirmatory Treponema pallidum Antibodies ([id number]). Performed By: #### R PRQ ####[facility] [address] [id number] Ruvalcaba CHLAMYDIA/GONOCOCCUS THERON (SW AB/URINE/PAPon 05-28-2021 Chlamydia trachomatis, THERON Negative Normal Negative [facility] Comment on above: Performed By: #### C T/NGNA ####[facility] [address] [address]Dr. Nolvia Ruvalcaba Neisseria gonorrhoeae, THERON Negative Normal Negative [facility] Comment on above: Performed By: #### C T/NGNA ####[facility] [address] [address]Dr. Nolvia Ruvalcaba VAGINITIS/VAGINOSIS DNA PROB Edson 05-27-2021 Arielle species Negative Normal Negative [facility] Comment on above: Performed By: #### H IV12 #### [facility] [address] [address] [address] Nolvia Ruvalcaba Gardnerella vaginalis Negative Normal Negative [facility] Comment on above: Performed By: #### H IV12 #### [facility] [address] [address] [address] Nolvia Ruvalcaba Trichomonas vaginalis Negative Normal Negative [facility] Comment on above: Performed By: #### H IV12 #### [facility] [address] [address] [address] Nolvia Ruvalcaba HEP B SURFACE ANTIGEN SCREEN on 04-28-2021 HBsAg Screen Negative Normal Negative [facility] Comment on above: Performed By: #### H BSANS ####[facility] [address] [address]Dr. Nolvia Ruvalcaba HEPATITIS C VIRUS AB W/ REFL EX QUANTon 04-28-2021 HCV AB <0.1 Normal 0.0-0.9 [facility] Comment on above: Performed By: #### H CVPCRR ####[facility] [address] [address]Dr. Nolvia Ruvalcaba Interpretation: Comment Normal [facility] Comment on above: Result Comment: Nega tive Not infected with HCV, unless recent infection is suspected or other evidence exists to indicate HCV infection. Performed By: #### H CVPCRR ####[facility] [address] [address]Dr. Nolvia Ruvalcaba HIV 1 AND 2 WITH REFLEXon HIV Screen 4th Generation wRfx Non-Reactive Normal Non Reactive [facility] Comment on above: Result Comment: HIV Negative HIV-1/HIV-2 antibodies and HIV-1 p24 antigen were NOT detected. There is no laboratory evidence of HIV infection. Performed By: #### H IV12 #### [facility] [address] [place] [address] Dr. Nolvia Ruvalcaba RPR QUANTon 04-28-2021 Rapid Plasma Reagin, Quant Non-Reactive Normal NonRea<1:1 [facility] Comment on above: Performed By: #### R PRQ ####[facility] [address] [address]Dr. Nolvia Ruvalcaba RUBELLA AB IGGon 04-28-2021 Rubella Antibodies, IgG 1.50 index Normal Immune >0.99 [facility] Comment on above: Result Comment: Non- immune <0.90 Equivocal 0.90 - 0.99 Immune >0.99 Performed By: #### H IV12 #### [facility] [address] [place] [address] Dr. Nolvia Ruvalcaba CBC AUTO DIFFon 04-27-2021 BASO # 0.0 103/ul Normal 0.0-0.1 [facility] Comment on above: Performed By: #### H IV12 #### [facility] [address] [place] [address] Dr. Nolvia Ruvalcaba Basophils/100 WBC (Bld) 0.3 % Normal 0.2-2.0 [facility] Comment on above: Performed By: #### H IV12 #### [facility] [address] [place] [address] Dr. Nolvia Ruvalcaba EO # 0.1 103/ul Normal 0.0-0.7 [facility] Comment on above: Performed By: #### H IV12 #### [facility] [address] [place] [address] Dr. Nolvia Ruvalcaba Eosinophils/100 WBC (Bld) 1.4 % Normal 0.9-7.0 [facility] Comment on above: Performed By: #### H IV12 #### [facility] [address] [address] [address] Nolvia Ruvalcaba Erythrocyte distribution width (RBC) [Ratio] 12.4 % Normal 11.0-15.0 [facility] Comment on above: Performed By: #### H IV12 #### [facility] [address] [place] [address] Dr. Nolvia Ruvalcaba Hematocrit (Bld) [Volume fraction] 40.7 % Normal 36.0-48.0 [facility] Comment on above: Performed By: #### H IV12 #### [facility] [address] [place] [address] Dr. Nolvia Ruvalcaba Hemoglobin (Bld) [Mass/Vol] 13.5 g/dL Normal 12.0-16.0 [facility] Comment on above: Performed By: #### H IV12 #### [facility] [address] [place] [address] Dr. Nolvia Ruvalcaba IG # 0.04 10e3/ul Critically high 0.00-0.03 [facility] Comment on above: Performed By: #### H IV12 #### [facility] [address] [place] [address] Dr. Nolvia Ruvalcaba IG % 0.4 % Normal 0.0-0.5 [facility] Comment on above: Performed By: #### H IV12 #### [facility] [address] [place] [address] Dr. Nolvia Ruvalcaba LYMPH # 1.3 103/ul Normal 1.2-3.8 [facility] Comment on above: Performed By: #### H IV12 #### [facility] [address] [place] [address] Dr. Nolvia Ruvalcaba Lymphocytes/100 WBC (Bld) 13.8 % Critically low 20.5-60.0 [facility] Comment on above: Performed By: #### H IV12 #### [facility] [address] [place] [address] Dr. Nolvia Ruvalcaba MANUAL DIFF REQ NO Normal [facility] Comment on above: Performed By: #### H IV12 #### [facility] [address] [address] [address] Nolvia Ruvalcaba MCH (RBC) [Entitic mass] 30.1 pg Normal 26.7-34.0 [facility] Comment on above: Performed By: #### H IV12 #### [facility] [address] [address] [address] Nolvia Ruvalcaba MCHC (RBC) [Mass/Vol] 33.2 g/dL Normal 29.9-35.2 [facility] Comment on above: Performed By: #### H IV12 #### [facility] [address] [address] [address] Nolvia Ruvalcaba MCV (RBC) [Entitic vol] 90.8 fL Normal 81.0-99.0 [facility] Comment on above: Performed By: #### H IV12 #### [facility] [address] [place] [address] Dr. Nolvia Ruvalcaba MONO # 0.4 103/ul Normal 0.3-0.8 [facility] Comment on above: Performed By: #### H IV12 #### [facility] [address] [place] [address] Dr. Nolvia Ruvalcaba Monocytes/100 WBC (Bld) 4.2 % Normal 1.7-12.0 [facility] Comment on above: Performed By: #### H IV12 #### [facility] [address] [place] [address] Dr. Nolvia Ruvalcaba NEUT # 7.5 103/ul Critically high 1.4-6.5 [facility] Comment on above: Performed By: #### H IV12 #### [facility] [address] [place] [address] Dr. Nolvia Ruvalcaba Neutrophils/100 WBC (Bld) 79.9 % Critically high 43.0-75.0 [facility] Comment on above: Performed By: #### H IV12 #### [facility] [address] [place] [address] Dr. Nolvia Ruvalcaba Platelet mean volume (Bld) [Entitic vol] 9.3 fL Critically low 9.5-13.5 [facility] Comment on above: Performed By: #### H IV12 #### [facility] [address] [address] [address] Nolvia Ruvalcaba PLT 322 103/ul Normal 150-450 [facility] Comment on above: Performed By: #### H IV12 #### [facility] [address] [address] [address] Nolvia Ruvalcaba RBC 4.48 106/ul Normal 4.20-5.40 [facility] Comment on above: Performed By: #### H IV12 #### [facility] [address] [address] [address] Nolvia Ruvalcaba WBC 9.4 103/ul Normal 4.0-11.0 [facility] Comment on above: Performed By: #### H IV12 #### [facility] [address] [address] [address] Nolvia Ruvalcaba CULTURE URINEon 04-27-2021 CULTURE URINE Culture Observations : LIGHT GROWTH OF MIXED GENITAL SPENCER. NO POTENTIAL PATHOGENS SEEN. Normal [facility] Comment on above: Performed By: #### U RCX ####[facility] [address] [address]. Nolvia Ruvalcaba GLYCOHEMOGLOBIN A1Con 2021 ADA RECOMMENDATION ADA THERAPEUTIC TARGET 6.0 - 7.0 ACTION SUGGESTED > 7.0 Normal [facility] Comment on above: Performed By: #### A 1C #### [facility] [address] [address] [address] Nolvia Ruvalcaba Glucose [Mass/Vol] 108 mg/dL Normal [facility] Comment on above: Performed By: #### A 1C #### [facility] [address] [address] [address] Nolvia Ruvalcaba HbA1c (Bld) [Mass fraction] 5.4 % Normal <=6.0 [facility] Comment on above: Performed By: #### A 1C #### [facility] [address] [address] [address] Nolvia Ruvalcaba TYPE AND SCREENon 04-27-2021 TYPE AND SCREEN Negative Normal [facility] Comment on above: Performed By: #### T NS ####[facility] [address] [place], [place] [address]Ym. Nolvia Ruvalcaba US PREG TVon 03-27-2021 US PREG TV EXAMINATION: US PREG TV HISTORY: Missed period COMPARISON: No relevant comparison available. FINDINGS: GESTATIONAL SAC: Present and normal appearing. POLE: Present and normal appearing. YOLK SAC: Present. CARDIAC: Present. UTERUS: Normal size and appearance. OVARIES: Right: Normal. Left: Not seen. CERVIX: 4.5 cm in length and closed. CUL-DE-SAC: Normal. OTHER: None. AGE BY LMP: Unknown LMP BRO BY LMP: AGE BY US CRL: 7 weeks, 4 days BRO BY US CRL: 11/09/2021 IMPRESSION: 1. Single live intrauterine 7 weeks, 4 days. Electronically authenticated by: FRANCIA CRENSHAW Date: 2021-03-27 09:39 Normal [facility] Social History Date Type Detail Facility Unknown if ever smoked [facility] Other Sex Assigned At Sex Assigned At Bir th [facility] Other Vital Signs Date Time Vital Sign Value Performing Clinician Facility 02-24-2023 11:15-0500 Body height 172.72 cm Jenn Gallegos Other [facility] Other 02-24-2023 11:15-0500 Body mass index (BMI) [Ratio] 26.76 kg/m2 Jenn Gallegos Other [facility] Other 02-24-2023 11:15-0500 Body weight 79.83 kg Jenn Gallegos Other [facility] Other 02-24-2023 11:15-0500 Diastolic blood pressure 64 mm[Hg] Jenn Gallegos Other [facility] Other 02-24-2023 11:15-0500 Respiratory rate 16 /min Jenn Gallegos Other [facility] Other 02-24-2023 11:15-0500 SaO2% (BldA) [Mass fraction] 99 % Jenn Gallegos Other [facility] Other 02-24-2023 11:15-0500 Systolic blood pressure 129 mm[Hg] Jenn Gallegos Other [facility] Other 05-06-2022 14:45-0400 Body height 172.72 cm Jenn Gallegos Other [facility] Other 05-06-2022 14:45-0400 Body mass index (BMI) [Ratio] 27.85 kg/m2 eJnn Gallegos Other [facility] Other 05-06-2022 14:45-0400 Body weight 83.1 kg Jenn Gallegos Other [facility] Other 05-06-2022 14:45-0400 Diastolic blood pressure 76 mm[Hg] Jenn Gallegos Other [facility] Other 05-06-2022 14:45-0400 Respiratory rate 16 /min Jenn Gallegos Other [facility] Other 05-06-2022 14:45-0400 SaO2% (BldA) [Mass fraction] 99 % Jenn Gallegos Other [facility] Other 05-06-2022 14:45-0400 Systolic blood pressure 110 mm[Hg] Jenn Gallegos Other [facility] Other 02-11-2022 16:30-0500 Body height 172.72 cm Mike Estrada Other [facility] Other 02-11-2022 16:30-0500 Body mass index (BMI) [Ratio] 28.64 kg/m2 Mike Estrada Other [facility] Other 02-11-2022 16:30-0500 Body weight 85.46 kg Mike Estrada Other [facility] Other 02-11-2022 16:30-0500 Diastolic blood pressure 80 mm[Hg] Mike Estrada Other [facility] Other 02-11-2022 16:30-0500 Respiratory rate 16 /min Mike Estrada Other [facility] Other 02-11-2022 16:30-0500 SaO2% (BldA) [Mass fraction] 97 % Mike Estrada Other [facility] Other 02-11-2022 16:30-0500 Systolic blood pressure 124 mm[Hg] Mike Estrada Other [facility] Other 02-11-2021 16:15-0500 Body height 172.72 cm Jenn Gallegos Other [facility] Other 02-11-2021 16:15-0500 Body mass index (BMI) [Ratio] 27.37 kg/m2 Jenn Gallegos Other [facility] Other 02-11-2021 16:15-0500 Body weight 81.65 kg Jenn Gallegos Other [facility] Other 02-11-2021 16:15-0500 Diastolic blood pressure 62 mm[Hg] Jenn Gallegos Other [facility] Other 02-11-2021 16:15-0500 Respiratory rate 16 /min Jenn Gallegos Other [facility] Other 02-11-2021 16:15-0500 SaO2% (BldA) [Mass fraction] 99 % Jenn Gallegos Other [facility] Other 02-11-2021 16:15-0500 Systolic blood pressure 118 mm[Hg] Jenn Gallegos Other [facility] Other Evaluation note 02-24-2023 Note Date & Type Note Facility 02-24-2023 Evaluation note Encounter Date Diagnosis Assessment Notes Feb, Well adult exam (ICD-10 - Z00.00) 32-year-old female who is overall doing very well and not needing any daily medications. Her anxiety and depression is doing very well off the Zoloft. Her asthma is doing well off of controlling inhaler and she only occasionally needs albuterol when she gets an upper respiratory infection. She is getting some dizziness with position changes but it seems to be at work when she is very active and busy and not eating enough calories. Patient was encouraged to eat a snack at work and not just a small amount of food which she is currently doing. She will see if this helps and if not then she will call. She is otherwise doing well and her physical exam is completely normal. She is to follow-up in 1 year or sooner if an acute issue arises. Feb, Anxiety with depression (ICD-10 - F41.8) Feb, Moderate persistent asthma without complication (ICD-10 - J45.40) [facility] Other Evaluation note 05-06-2022 Note Date & Type Note Facility 05-06-2022 Evaluation note Encounter Date Diagnosis Assessment Notes Apr, Left wrist tendonitis (ICD-10 - M77.8) Based on patient's history, exam, and ultrasound findings she has extensor carpi ulnaris tendinitis. This is likely from repetitive activity at work. Patient was given rehab exercises as well as naproxen 500 mg that she can take for pain. She is also to ice 10 to 15 minutes several times a day. If not improving she is to call and return and would consider doing a tendon sheath injection. [facility] Other Evaluation note 02-11-2022 Note Date & Type Note Facility 02-11-2022 Evaluation note Encounter Date Diagnosis Assessment Notes Jan, Moderate persistent asthma without complication (ICD-10 - J45.40) Jan, Well adult exam (ICD-10 - Z00.00) 31-year-old female who is overall very healthy who is managed for moderate asthma as well as anxiety with depression with medications. Currently she has not needed her albuterol except when she gets a URI. She was doing very well with fluoxetine but stopped due to her and reports that she has managed well with out restarting it. She does experience periods of increased anxiety and is wanting something to help decrease periods of increased anxiety without being on something daily. Advised to start hydroxyzine 25mg orally prn for anxiety. She is otherwise doing well and is not due for any labs or screenings at this time. She is to follow-up in 1 year sooner if any acute issue arises. Jan, Anxiety (ICD-10 - F41.9) [facility] Other Clinical Note 11-03-2021 Note Date & Type Note Facility 11-03-2021 Note OPERATIVE NOTE OPERATION DATE: 11/03/2021 PROCEDURE: Repeat low transverse section. PREOPERATIVE DIAGNOSIS: 1. Intrauterine 39 weeks. 2. Previous . POSTOPERATIVE DIAGNOSIS: 1. Intrauterine 39 weeks. 2. Previous . ANESTHESIA: Spinal with Duramorph. SURGEON: Arelis Barreto D.O. SURGICAL SERVICES TECH: JESSE Cruz URINE OUTPUT: Yellow and clear. BLOOD LOSS: 575 mL. FINDINGS: Viable female. Apgars 9 at 1 and 9 at 5. Weight unknown at this time. SPECIMEN: Placenta. PROCEDURE: Patient was taken back to the Operating Room where she was given a spinal anesthesia with Duramorph without difficulty. She was prepped and draped in the normal sterile fashion. A Pfannenstiel skin incision was then made 2 cm above the symphysis pubis and carried down to underlying rectus fascia using a Bovie. The fascia was incised in the midline and extended laterally using Rapp scissors. Two Tammi clamps were placed on the superior aspect of the fascia and dissected off the underlying rectus muscles. The same was performed on the inferior aspect as well. The muscles were then in the midline. Peritoneum was identified and entered bluntly. The peritoneum was then extended superiorly and inferiorly with good visualization of the bladder. The bladder blade was inserted. A low transverse incision was made on the patient's uterus and extended laterally digitally. The was then delivered atraumatically after the bladder blade was removed in the cephalic position. The cord was clamped and cut. Cord blood was obtained. The infant was handed off to awaiting team. The patient's placenta was spontaneously delivered. The uterus was then exteriorized. The uterus was cleared of all clots and debris. The bladder blade was reinserted. The patient's uterine incision was closed using #0 Vicryl in a running lock fashion. Excellent hemostasis was assured. The uterus was then returned to the patient's abdomen. The patient's abdomen was copiously irrigated using warm saline. Peritoneal gutters were cleared of all clots and debris. Again excellent hemostasis was assured. The patient's peritoneum was closed using 3-0 Vicryl in a running fashion. The patient's fascia was closed using #0 Vicryl in a running fashion. The patient's skin was closed using 4-0 Vicryl subcuticularly. The patient tolerated the procedure well. Sponge, lap, and needle counts were correct x2. The patient was taken to the Recovery Room in stable condition. [facility] Discharge summary note 11-03-2021 Note Date & Type Note Facility 11-03-2021 Note DISCHARGE SUMMARY DISCHARGE DATE: 11/13/2021 PRIMARY DIAGNOSES: 1. Intrauterine at 39 weeks. 2. Previous . PROCEDURE: Repeat low transverse section. HOSPITAL COURSE: As expected. Please see chart for full details. LABORATORY DATA: Please see chart. COMPLICATIONS: None. DISCHARGE CONDITION: Stable. CONSULTATION: Anesthesia. DISCHARGE INSTRUCTIONS: 1. Diet: Regular. 2. Medications: a. Percocet 5/325 one to two p.o. every 4-6 hours p.r.n. pain. b. Motrin 800 one p.o. every 8 hours p.r.n. pain. 3. Followup in one week. Restrictions: Pelvic rest for 6 weeks. No heavy lifting. May drive when pain free and no longer on narcotics. [facility] Evaluation note 02-11-2021 Note Date & Type Note Facility 02-11-2021 Evaluation note Encounter Date Diagnosis Assessment Notes Jan, Well adult exam (ICD-10 - Z00.00) 30-year-old female who is overall very healthy and only has moderate asthma as well as anxiety with depression is her chronic medical conditions. Currently she has not needed her albuterol except when she gets a URI. She was doing very well with fluoxetine and then decided she could go off of it then was not doing as well so she went back on it. I explained to her that at this point I would highly recommend it and not discontinue it. She did inquire about taking medication while and generally this medication is considered to be very safe while . The only recommendation is during the third trimester weaning down on it so that when the baby is born the baby does not go through withdrawal from the medication. She voiced understanding of this. She is to follow-up in 1 year sooner if any acute issue arises. Jan, Anxiety with depression (ICD-10 - F41.8) Jan, Moderate persistent asthma without complication (ICD-10 - J45.40) [facility] Other Evaluation note Note Date & Type Note Facility Evaluation note No Information [facility] Other History general Narrative - Reported Note Date & Type Note Facility History general Narrative - Reported Type Medical History stomach issues Medical History Asthma Medical History low iron Surgical History stomach surgery Surgical History C section Hospitalization History childbirths [facility] Other Summary Purpose Family History No Family History Records FoundNo Family History Records Found Advance Directives No Advanced Directives Records FoundNo Advanced Directives Records Found Additional Source Comments INFORMATION SOURCE (unrecogn ized section and content) DATE CREATED AUTHOR 03/20/2018 [facility] DATE CREATED AUTHOR AUTHOR'S GENOVEVA JUNG 03/16/2022 [facility] REASON FOR VISIT (unrecogniz ed section and content) left wrist sore and is painf ul when pressure is applied1 year Follow up FOR RECORDS PERTAINING TO PATIENTS WHO ARE OR HAVE BEEN ENROLLED IN A CHEMICAL DEPENDENCY/SUBSTANCEABUSE PROGRAM, SOME INFORMATION MAY BE OMITTED. This clinical summary was aggregated from multiple sources. Caution should be exercised in using it in the provision of clinical care. This summary normalizes information from multiple sources, and as a consequence, information in this document may materially change the coding, format and clinical context of patient data. In addition, data may be omitted in some cases. CLINICAL DECISIONS SHOULD BE BASED ON THE PRIMARY CLINICAL RECORDS. [facility] [facility]. provides no warranty or guarantee of the accuracy or completeness of information in this document.
[2023-07-19 12:09] LABS: Age Gdln ACOG Testing Note (.); HPV Aptima Negative (Negative); IGP, Aptima HPV, rfx 16/18,45 Note (.)
== END 2023-07-14 19:11 | disposition home or self-care (01) ==
LOC: LAB 19:10
PROVIDERS: Visit Provider Obstetrics & Gynecology
DX: Z01.419 Encounter for gynecological examination (general) (routine) without abnormal findings (principal)
CPT/HCPCS: 87624; 88175

== ENCOUNTER 2024-07-24 15:30 | Outpatient (OUT) | payer BC, OTHER, SELFPAY ==
--- OUTSIDE RECORDS SUMMARY | 2024-07-24 15:32 | XMS_ITS | Clinical Summary ---
Author Organization [facility] Address [address] [place] [address] Phone Care Team Providers Care Straddle Carrier Operator Name Role Phone Unavailable Primary Care Provider Unavailabl e Social History Tobacco Use Types Packs/Day Years Used Date Smoking Tobacco: Never Assessed Comments Unknown Sex and Gender Information Value Date Recorded Sex Assigned at Not on file Legal Sex Female 11:36 AM EST Gender Identity Not on file Sexual Orientation Not on file Plan of Treatment Not on file
--- OUTSIDE RECORDS SUMMARY | 2024-07-24 15:32 | XMS_ITS | Encounter Summary ---
Author Organization [facility] Address [address] [place] [address] Care Team Providers Care Client Services Director Name Role Phone Unavailable Primary Care Provider Unavailabl e Encounter Details Date Type Department Care Team (Late st Contact Info) Description 07/21/2023 Orders Only [facility] [address] [facility] [phone] Arminda Bey LPN [address] [facility] [place] [id number] Social History Tobacco Use Types Packs/Day Years Used Date Smoking Tobacco: Never Assessed Comments Unknown Sex and Gender Information Value Date Recorded Sex Assigned at Not on file Legal Sex Female 6:54 PM EDT Gender Identity Not on file Sexual Orientation Not on file documented as of this encounter Plan of Treatment Upcoming Encounters Date Type Department Care Team (Late st Contact Info) Description 08/02/2024 9:20 AM EDT Routine [facility] [address] [place] [phone] Jose Barreto DO [address] [facility] [place], [place] [id number] documented as of this encounter Procedures Procedure Name Priority Date/Time Associated Diagnosis Comments PAP SMEAR Routine 07/13/2023 12:00 AM EDT documented in this encounter Results * Pap Smear (07/13/2023 12:00 AM EDT) Swab Cervical swab / Unknown us [facility] Ob Mary Lou Nurse LAB CYTOLOGY ORDERABLES Final Result EXTERNAL LAB documented in this encounter Visit Diagnoses Not on filedocumented in this encounter
--- OUTSIDE RECORDS SUMMARY | 2024-07-24 15:32 | XMS_ITS | Clinical Summary ---
Author Organization [facility] Address [address] [place] [address] Care Team Providers Care Rubber Belt Splicer Name Role Phone Unavailable Primary Care Provider Unavailabl e Allergies Active Allergy Reactions Criticality Noted Date Comments Penicillins Rash Low 03/11/2023 Sulfa Antibiotics Hives 03/11/2023 Medications albuterol HFA (ProAir HFA) 90 mcg/act inhaler Inhale 1 puff every 4 (four) hours if needed for wheezing Active docusate sodium (Colace) 100 MG capsule Take 100 mg by mouth as needed in the morning and 100 mg as needed in the evening for constipation. Active Multiple Vitamin (multivitamin) tablet Take 1 tablet by mouth Daily Active polyethylene glycol, PEG, 3350 (Miralax) 17 g packet Take by mouth Acti ve Encounters Date Type Department Care Team Description 07/05/2024 1:00 PM EDT Initial [facility] [address] [place] [phone] GA: 10w6d 07/05/2024 12:30 PM EDT Ancillary Procedure [facility] [address] [place] [phone] Missed menses 07/02/2024 Travel from Last 3 Months Family History Medical History Relation Name Comments Cerebrovascular accident Maternal Grandfather Relation Name Status Comments Maternal Grandfather Social History Tobacco Use Types Packs/Day Years Used Date Smoking Tobacco: Never Assessed Estimated Date of Delivery Comme nts Yes 01/25/2025 Based on Ultraso und Sex and Gender Information Value Date Recorded Sex Assigned at Not on file Legal Sex Female 6:54 PM EDT Gender Identity Not on file Sexual Orientation Not on file Last Filed Vital Signs Vital Sign Reading Time Taken Comments Blood Pressure 128/77 07/05/2024 1:28 PM EDT Pulse - - Temperature - - Respiratory Rate - - Oxygen Saturation - - Inhaled Oxygen Concentration - - Weight 79.4 kg (175 lb 2 oz) 07/05/2024 1:28 PM EDT Height 172.7 cm (5' 8 ) 07/14/2023 11:01 AM EDT Body Mass Index 26.63 07/14/2023 11:01 AM EDT Plan of Treatment Upcoming Encounters Date Type Department Care Team (Late st Contact Info) Description 08/02/2024 9:20 AM EDT Routine [facility] [address] [facility] [place] [phone] Jose Barreto [address] [place] [address] Health Maintenance Due Date Last Done Comments HPV/Cotest 2020 Influenza Vaccine (Season Ended) 2024 11/28/19 20 Cervical Cancer Screening 07/12/2026 Pap Smear 07/12/2026 07/13/2023, 03/10/2022 Procedures Procedure Name Priority Date/Time Associated Diagnosis Comments POCT , URINE Routine 07/05/2024 1:36 PM EDT Missed menses POCT URINALYSIS DIPSTICK Routine 07/05/2024 1:35 PM EDT Missed menses US OB TRANSVAGINAL Routine 07/05/2024 12 :53 PM EDT Missed menses PAP SMEAR Routine 07/13/2023 12:00 AM EDT from Last 3 Months or Most Recently Relevant to Health Maintenance Results * (ABNORMAL) POCT , urine manually resulted (07/05/2024 1:36 PM EDT) Preg Test, Ur Positive Negative Urine 07/05/2024 1:36 PM EDT us Jose Mary Lou DO POINT OF CARE TEST ENTER/EDIT OR DERABLES Final Result * (ABNORMAL) POCT urinalysis dipstick manually resulted (07/05/2024 1:35 PM EDT) Color, UA Yellow Clarity, UA Clear Glucose, UA Negative Negative - 2000(110) ++++ mg/dL Bilirubin, UA Negative Negative - 4(70) +++ mg/dL Ketones, UA Negative Negative - 160(16) ++++ mg/dL Spec Grav, UA 1.025 1 - 1.03 Blood, UA Positive Negative - 50 Guy/mcL Comment:Trace-intact pH, UA 7.0 5 - 9 Protein, UA Negative Negative - 2000(20) ++++ mg/dL Urobilinogen, UA 0.2 0.2 - 12 mg/dL Leukocytes, UA Negative Negative - 500+++ Corona/mcL Nitrite, UA Negative Negative - Positive Urine 07/05/2024 1:35 PM EDT [facility] POINT OF CARE TEST ENTER/EDIT OR DERABLES Final Result * US OB transvaginal (07/05/2024 12:53 PM EDT) Anatomical Region Laterality Modality Body Ultrasound 07/06/2024 12:1 9 PM EDT Narrative 07/06/2024 12:19 PM EDT EXAM: US OB TRANSVAGINAL HISTORY: Dating. COMPARISON: None available. TECHNIQUE: Two-dimensional transvaginal grayscale ultrasound imaging of the pelvis was performed. Color Doppler evaluation of the ovaries was also performed. FINDINGS: The uterus demonstrates a normal homogeneous echotexture. The cervix measures 4.1 cm in length and the cervical os is closed. The right ovary measures 3.3 x 1.6 x 2.8 cm and demonstrates a normal echotexture. There is normal color Doppler flow. There is a presumed corpus luteal cyst visualized. The left ovary measures 2.5 x 1.7 x 1.8 cm and demonstrates a normal echotexture. There is normal color Doppler flow. No fluid is present within the cul-de-sac. There is a single, live intrauterine gestation identified with a heart rate of 157 beats per minute and a crown-rump length measurement of 4.0 cm, correlating to a gestational age of 10 weeks 6 days (+/- 7 days). There is no subchorionic hemorrhage visualized. A yolk sac is visualized. IMPRESSION: 1. Single, live intrauterine gestation 8 weeks, 2 days by LMP. Today's ultrasound measurements correlate with a gestational age of 10 weeks 6 days (+/- 7 days). BRO by today's ultrasound is 01/25/2025. 2. Normal color Doppler evaluation of the bilateral ovaries. Interpreted by: Electronically signed by CHRIS VILLAGOMEZ II, MD, PHD at 06-Jul-2024 12:18:02 PM [facility] Procedure Note Chris Villagomez MD - 07/06/2024 EXAM: US OB TRANSVAGINAL HISTORY: Dating. COMPARISON: None available. TECHNIQUE: Two-dimensional transvaginal grayscale ultrasound imaging ofthe pelvis was performed. Color Doppler evaluation of the ovaries was alsoperformed. FINDINGS: The uterus demonstrates a normal homogeneous echotexture. The cervixmeasures 4.1 cm in length and the cervical os is closed. The right ovary measures 3.3 x 1.6 x 2.8 cm and demonstrates a normalechotexture. There is normal color Doppler flow. There is a presumedcorpus luteal cyst visualized. The left ovary measures 2.5 x 1.7 x 1.8 cm and demonstrates a normalechotexture. There is normal color Doppler flow. No fluid is present within the cul-de-sac. There is a single, live intrauterine gestation identified with a fetalheart rate of 157 beats per minute and a crown-rump length measurement of4.0 cm, correlating to a gestational age of 10 weeks 6 days (+/- 7 days).There is no subchorionic hemorrhage visualized. A yolk sac isvisualized. IMPRESSION: 1. Single, live intrauterine gestation 8 weeks, 2 days by LMP. Today'sultrasound measurements correlate with a gestational age of 10 weeks 6days (+/- 7 days). BRO by today's ultrasound is 01/25/2025. 2. Normal color Doppler evaluation of the bilateral ovaries. Interpreted by: Electronically signed by CHRIS VILLAGOMEZ II, MD, PHD 12:18:02 PM [facility] us Jose Mary Lou DO IMG OB US PROCEDURES Final Resul t * Pap Smear (07/13/2023 12:00 AM EDT) Swab Cervical swab / Unknown us [facility] Mary Lou Nurse LAB CYTOLOGY ORDERABLES Final Result EXTERNAL LAB from Last 3 Months or Most Recently Relevant to Health Maintenance Insurance [employer]
--- OUTSIDE RECORDS SUMMARY | 2024-07-24 15:32 | XMS_ITS | Patient Health Record ---
Author Organization [facility] vices Address [address] [place] [id number] Care Team Providers Care Fha Underwriter Name Role Phone Alma Jolley Unavailable [phone] Mya Marte Unavailable [phone] Allergies Allergen (clinical drug ingredient) Drug/Non Drug Allergy documented on EMR Reaction Allergy Type Onset Date Status Penicillin Unknown Drug Allergy Active Substance with sulfonamide structure and antibacterial mechanism of action (substance) Sulfa Antibiotics Unknown Drug Allergy Active Reason For Referral No Information Social History Sex Assigned At : Social History Observation Description Sex Assigned At Female Tobacco Use/Smoking Question Answer Notes Additional Findings: Tobacco User Light cigarett e smoker ((1-9 cigs/day) Problems Problem Type SNOMED Code ICD Code Onset Dates Problem Status W/U Status Risk Notes Problem Cigarette nicotine dependence without complication (F17.210) Active confirmed Problem Body mass index 25-29 - overweight (075525681) BMI 25.0-25.9,adult (Z68.25) Active confirmed Vital Signs Heart Rate 62 /min 02/06/2024 Blood pressure diastolic 82 mm Hg 02/06/2024 Height-cm 172.72 cm 02/06/2024 Weight-kg 74.84 kg 02/06/2024 Height 68 in 02/06/2024 Blood pressure systolic 127 mm Hg 02/06/2024 Weight 165 lbs 02/06/2024 BMI 25.09 kg/m2 02/06/2024 Encounters Encounter Location Date Provider Diagnosis Dental Main [address] [place], [place] [phone] 02/06/2024 Mya Marte Encounter for scre ening for dental disorders Z13.84 and Encounter for dental examination and cleaning with abnormal findings Z01.21 Assessments Encounter Date Diagnosis (ICD Code) Assessment Notes Treatment Notes Treatment Clinical Notes Section Notes 02/06/2024 Encounter for screening for dental disorders (ICD-10 - Z13.84) 02/06/2024 Encounter for dental examination and cleaning with abnormal findings (ICD-10 - Z01.21) Plan Of Treatment No Information Insurance Providers Payer Name Payer Address Payer Phone Subscriber Number Group Number Insured Name Patient Relationship to Insured Coverage Start Date Coverage End Date Jennifer Peng [facility] [address] [place] [address] [id number] Arti Mckeon Self - patient is the insured 3 D[employer]icaid [employer] after [place] [address] [place], [place] [id number] Arti Mckeon Self - patient is the insured 3
[2024-07-24 15:56] LABS: BOX Test Reference Lab UNITY; BOX Test Sent Out YES; Basophils Percent Auto 0.4 % (0.2-2.0); Eosinophils Absolute Auto 0.3 10^3/uL (0.0-0.7); Eosinophils Percent Auto 2.4 % (0.9-7.0); Hematocrit 36.3 % (36.0-48.0); Hemoglobin 12.6 g/dL (12.0-16.0); Immature Granulocytes Abs Auto 0.02 10^3/uL (0.00-0.03); Immature Granulocytes Pct Auto 0.2 % (0.0-0.5); Lymphocytes Absolute Auto 1.9 10^3/uL (1.2-3.8); Lymphocytes Percent Auto 17.4 % (20.5-60.0); Mean Corpuscular HGB Conc 34.7 g/dL (29.9-35.2); Mean Corpuscular Volume 89.4 fL (81.0-99.0); Mean Platelet Volume 9.5 fL (9.5-13.5); Monocytes Absolute Auto 0.7 10^3/uL (0.3-0.8); Monocytes Percent Auto 6.7 % (1.7-12.0); Neutrophils Absolute Auto 7.8 10^3/uL (1.4-6.5); Neutrophils Percent Auto 72.9 % (43.0-75.0); Platelet Count 321 10^3/uL (150-450); Red Blood Count 4.06 10^6/uL (4.20-5.40); Red Cell Distribution Width 12.4 % (11.0-15.0); White Blood Count 10.7 10^3/uL (4.0-11.0)
[2024-07-24 16:07] LABS: Amphetamine Screen Urine NEGATIVE (NEGATIVE); Barbiturates Screen Urine NEGATIVE (NEGATIVE); Benzodiazepines Screen Urine NEGATIVE (NEGATIVE); Buprenorphine Screen Urine NEGATIVE (NEGATIVE); Cannabinoid Screen Urine NEGATIVE (NEGATIVE); Cocaine Screen Urine NEGATIVE (NEGATIVE); Methadone Screen Urine NEGATIVE (NEGATIVE); Methamphetamines Screen Urine NEGATIVE (NEGATIVE); Opiate Screen Urine NEGATIVE (NEGATIVE); Oxycodone Screen Urine NEGATIVE (NEGATIVE); Phencyclidine Screen Urine NEGATIVE (NEGATIVE); Tricyclic Antidepressant Urine NEGATIVE (NEGATIVE)
[2024-07-24 16:13] LABS: Estimated Average Glucose 105 mg/dL; Glycohemoglobin A1C 5.3 % (4.5-6.2)
[2024-07-26 05:07] LABS: HIV Ab/p24 Ag Screen Non Reactive (Non Reactive)
[2024-07-26 06:08] LABS: HBsAg Screen Negative (Negative); HCV Ab Non Reactive (Non Reactive)
[2024-07-26 07:09] LABS: Rubella Antibodies, IgG 1.22 index (Immune >0.99)
[2024-07-26 12:12] LABS: Rapid Plasma Reagin, Quant Non Reactive titer (NonRea<1:1)
== END 2024-07-24 15:31 | disposition home or self-care (01) ==
LOC: LAB 15:30
PROVIDERS: Visit Provider Obstetrics & Gynecology
DX: Z34.01 Encounter for supervision of normal first pregnancy, first trimester (principal); Z36.0 Encounter for antenatal screening for chromosomal anomalies; N92.6 Irregular menstruation, unspecified
CPT/HCPCS: 36415; 80307; 83036; 85025; 86592; 86762; 86803; 86850; 86900; 86901; 87086; 87340; 87389

== ENCOUNTER 2024-08-29 20:07 | Outpatient (REF) | payer BC, OTHER, SELFPAY ==
--- OUTSIDE RECORDS SUMMARY | 2024-08-29 20:25 | XMS_ITS | CCD ---
Author Organization [facility] Care Team Providers Care Junior Art Director Name Role Phone Gosia Garcias Primary Care Unavailable Jenn Gallegos Attending Unavailable Jenn Gallegos Unavailable JENN GALLEGOS Primary Care Unavailable MARY LOU, DR INFANTE Consulting Unavailable MARY LOU, DR INFANTE Attending Unavailable MARY LOU, DR INFANTE Admitting Unavailable MARY LOU, DR INFANTE Attending Unavailable MARY LOU, DR INFANTE Admitting Unavailable JENN GALLEGOS Primary Care Unavailable ROSY, JENN Primary Care Unavailable PAY, DR MONTAÑO Attending Unavailable PAY, DR MONTAÑO Admitting Unavailable PAY, DR MONTAÑO Consulting Unavailable ROSYJENN DURHAM Primary Care Unavailable MARY LOU, DR INFANTE Attending Unavailable MARY LOU, DR INFANTE Consulting Unavailable MARY LOU, DR INFANTE Admitting Unavailable MARY LOU, DR INFANTE Attending Unavailable MARY LOU, DR INFANTE Admitting Unavailable MARY LOU, DR INFANTE Consulting Unavailable MISC, DR ASKEW Primary Care Unavailable ZIEBER, DR FRANCIA Hyde Consulting Unavailable JENN GALLEGOS Primary Care Unavailable MARY LOU, DR INFANTE Consulting Unavailable MARY LOU, DR INFANTE Attending Unavailable MARY LOU, DR INFANTE Admitting Unavailable ROSYJENN DURHAM Primary Care Unavailable MARY LOU, DR INFANTE Attending Unavailable MARY LOU, DR INFANTE Admitting Unavailable MARY LOU, DR INFANTE Consulting Unavailable ROSY, JENN Primary Care Unavailable MARY LOU, DR INFANTE Attending Unavailable MARY LOU, DR INFANTE Admitting Unavailable MARY LOU, DR INFANTE Consulting Unavailable MARY LOU, DR INFANTE Procedure Practitioner Unavailab ADDISON Oliveira Consulting Unavailable CHELSY LABOY Consulting Unavailable MARINA HOSKINS Consulting Unavailable ROSY, JENN Primary Care Unavailable LYDIA DUNCAN Admitting Unavailable LYDIA DUNCAN Consulting Unavailable LYDIA DUNCAN Attending Unavailable ROSY, JENN Primary Care Unavailable PERLA, LYDIA Admitting Unavailable PERLA, LYDIA Consulting Unavailable PERLA, LYDIA Attending Unavailable PERLA, LYDIA Consulting Unavailable PERLA, LYDIA Attending [facility]available [facility] Unavailable PERLA, LYDIA Admitting Unavailable MARY LOU, DR INFANTE Attending Unavailable MARY LOU, DR INFANTE Admitting Unavailable MARY LOU, DR INFANTE Consulting Unavailable JENN GALLEGOS Primary Care Unavailable ZIHONG, DR FRANCIA Hyde Consulting Unavailable MARY LOU, DR INFANTE Attending Unavailable MARY LOU, DR INFANTE Admitting Unavailable [facility], DR ASKEW Primary Care Unavailable MARY LOU, DR INFANTE Consulting Unavailable ROSY JENN Primary Care Unavailable MARY LOU, DR INFANTE Attending Unavailable MARY LOU, DR INFANTE Admitting Unavailable [place], DR KASEY Horvath Consulting Unavailable MARY LOU, DR INFANTE Consulting Unavailable MARY LOU, DR INFANTE Attending Unavailable MARY LOU, DR INFANTE Admitting Unavailable MARY LOU, DR INFANTE Consulting Unavailable ROSY JENN Primary Care Unavailable FLOWER, DR FRANCIA Hyde Consulting Unavailable Mike Estrada Unavailable Unavailable Primary Care Provider UnavailARELIS Oneal Attending Unavailable Allergies Allergy Classification Reported Allergen(s) Allergy Type Date of Onset Reaction(s) Facility (5 sources) Sulfacetamide / Sulfur Drug Allergy rash [facility] Other (1 source) Penicillins Drug allergy (disorder) 02-23-19 14 [facility] (1 source) Sulfonamides (Antibiotic) Drug allergy (disorder) 02-23-19 14 [facility] (7 sources) Penicillins Drug Intolerance 03-11-19 24 Rash [facility] (7 sources) Sulfonamides (Antibiotic) Drug Intolerance 03-11-19 24 Hives [facility] (2 sources) Penicillin G Drug Allergy 08-30-19 25 [facility] Medications Current Medications Medication Drug Class(es) Dates Sig (Normalized) Sig (Original) [id number] 200 actuat albuterol 0.09 mg/actuat metered dose inhaler (12 sources) beta2-Adrenergic Agonist take 1 puff(s) by inhalation every four hours for wheezing albuterol HFA (ProAir HFA) 90 mcg/act inhaler Inhale 1 puff every 4 (four) hours if needed for wheezing Active take 2 puff(s) by in halation every six hours as needed Ventolin HFA 108 (90 Base) MCG/ACT 2 puf fs as needed Inhalation every 6 hrs for 30 day(s) PRN Not-Taking/PRN docusate sodium 100 mg oral capsule (12 sources) docusate sodium (Colace) 100 MG capsule Take 100 mg by mouth as needed in the morning and 100 mg as needed in the evening for constipation. Active Colace PRN Activ e Colace Not-Takin g Colace Active hydrOXYzine hydrochloride 25 mg oral tablet (3 sources) Antihistamine take 1 tablet by mouth once daily as needed for anxiety hydrOXYzine HCl 25 MG TAKE 1 TABLET BY MOUTH ONCE A DAY NEEDED FOR ANXIETY FOR 30 DAYS PRN Active Multiple Vitamin (multivitamin) tablet (7 sources) take 1 tablet by mouth once daily Multiple Vitamin (multivitamin) tablet Take 1 tablet by mouth Daily Active polyethylene glycol 3350 18148 mg powder for oral solution (7 sources) Osmotic Laxative polyethylene gl ycol, PEG, 3350 (Miralax) 17 g packet Take by mouth Active Completed/Discontinued Medications Medication Drug Class(es) Dates Sig (Normalized) Sig (Original) Albuterol Sulfate (2.5 MG/ 3 ML) 2.5 [...] 12 hrs for 20 days Apr, Not-Taking/PRN Problems Active Problems Problem Classification Problem Date [...] Chronic Immunizations and screening for infectious disease (8 sources) Encounter for screening for human papillomavirus [...] Translations: [OBESITY UNSPECIFIED] Onset: 11-10-2021 Chronic Other and delivery including normal (6 sources) Single live ; Translations: [Encounter for supervision of normal , unspecified, first trimester] Onset: 04-01-2021 08-02-2024 Episodic Other screening for suspected conditions (not mental disorders or infectious disease) (17 sources) Encounter for screening for malignant neoplasm of cervix; Translations: [Encounter for screening for Streptococcus B] Onset: 06-18-2021 Episodic Other upper respiratory infections (4 sources) Acute frontal sinusitis; Translations: [Acute frontal sinusitis, unspecified] Episodic Residual codes; unclassified (2 sources) Gestation period, 14 weeks; Translations: [14 weeks gestation of ] 08-02-2024 Episodic Residual codes; unclassified (2 sources) Gestation period, 18 weeks; Translations: [18 weeks gestation of ] 08-29-2024 Episodic Unclassified (1 source) CONTACT W/AND (SUSP) EXPOS COVID-19; Translations: [CONTACT W/AND (SUSP) EXPOS COVID-19] Onset: 11-02-2021 Past or Other Problems Problem Classification Problem Date Documented Date Episodic/Chronic Deficiency and other anemia (1 source) Iron deficiency anemia, unspecified; Translations: [IRON DEFICIENCY ANEMIA UNSPECIFIED] Onset: 11-10-2021 Episodic E Codes: Cut/pierceb (1 source) Contact with other sharp object(s), not elsewhere classified, initial encounter; Translations: [[facility] OB NOT ELSW CLASS INI] Onset: 06-01-2021 Episodic Hemorrhage during ; abruptio placenta; placenta previa (8 sources) Low lying placenta NOS or without hemorrhage, unspecified trimester; Translations: [Complete placenta previa NOS or without hemorrhage, unspecified trimester] Onset: 07-30-2021 Episodic Other aftercare (1 source) Other assistant terminal manager (current) drug therapy; Translations: [OT USP CURRENT DRUG THERAPY] Onset: 11-10-2021 Episodic Other complications of ; puerperium affecting management of mother (1 source) Diseases of the respiratory system complicating childbirth; Translations: [DISEASES RESP SYS COMP CHILDBIRTH] Onset: 11-10-2021 Episodic Other female genital disorders (4 sources) Other specified noninflammatory disorders of vagina; Translations: [OT SPEC NONINFLAMMATORY D/O VAGINA] Onset: 05-25-2021 Episodic Previous (3 sources) Maternal care for [...] LEFT HAND INITIAL ENC] Onset: 05-29-2021 Episodic Results Test Name Value Interpretation Reference Range Facility Urinalysis macro (dipstick) panel (U)on 08-29-2024 Bilirubin, UA Negative Negative - 4(70) +++ mg/dL [facility] Blood, UA Negative Negative - 50 Guy/mcL [facility] Clarity, UA Clear [facility] Color, UA Yellow [facility] Glucose, UA Negative Negative - 1999(110) ++++ mg/dL [facility] Interpretation and review of laboratory results Normal [facility] Ketones, UA Negative Negative - 160(16) ++++ mg/dL [facility] Leukocytes, UA Negative Negative - 500+++ Corona/mcL [facility] Nitrite, UA Negative Negative - Positive [facility] pH, UA 7 5 - 9 [facility] Protein, UA Negative Negative - 2000(20) ++++ mg/dL [facility] Spec Grav, UA 1.01 1 - 1.03 [facility] Urobilinogen, UA 0.2 0.2 - 12 mg/dL [facility] Urinalysis macro (dipstick) panel (U)on 08-02-2024 Bilirubin, UA Negative Negative - 4(70) +++ mg/dL [facility] Blood, UA Positive Negative - 50 Guy/mcL [facility] Comment on above: small Clarity, UA Clear [facility] Color, UA Yellow [facility] Glucose, UA Negative Negative - 1999(110) ++++ mg/dL [facility] Interpretation and review of laboratory results Abnormal [facility] Ketones, UA Positive Negative - 160(16) ++++ mg/dL [facility] Comment on above: Trace Leukocytes, UA Negative Negative - 500+++ Corona/mcL [facility] Nitrite, UA Negative Negative - Positive [facility] pH, UA 5.5 5 - 9 [facility] Protein, UA Negative Negative - 1999(20) ++++ mg/dL [facility] Spec Grav, UA 1.03 1 - 1.03 [facility] Urobilinogen, UA 0.2 0.2 - 12 mg/dL [facility] ALL CBC WITH AUTO DIFFon BASOPHILS ABSOLUTE AUTO 0 [facility] Basophils/100 WBC (Bld) 0.4 % 0.2 - 2.0 % [facility] Eosinophils/100 WBC (Bld) 2.4 % 0.9 - 7.0 % [facility] Erythrocyte distribution width (RBC) [Ratio] 12.4 % 11.0 - 15.0 % [facility] Hematocrit (Bld) [Volume fraction] 36.3 % 36.0 - 48.0 % [facility] Hemoglobin (Bld) [Mass/Vol] 12.6 g/dL 12.0 - 16.0 g/dL [facility] IMMATURE GRANULOCYTES ABS AUTO 0.02 [facility] Immature granulocytes/100 WBC (Bld) 0.2 % 0.0 - 0.5 % [facility] Interpretation and review of laboratory results Abnormal [facility] LYMPHOCYTES ABSOLUTE AUTO 1.9 [facility] Lymphocytes/100 WBC (Bld) 17.4 % Low 20.5 - 60.0 % [facility] MCH (RBC) [Entitic mass] 31 pg 26.7 - 34.0 pg [facility] MCHC (RBC) [Mass/Vol] 34.7 g/dL 29.9 - 35.2 g/dL [facility] MCV (RBC) [Entitic vol] 89.4 fL 81.0 - 99.0 fL [facility] MONOCYTES ABSOLUTE AUTO 0.7 [facility] Monocytes/100 WBC (Bld) 6.7 % 1.7 - 12.0 % [facility] NEUTROPHILS ABSOLUTE AUTO 7.8 High [facility] Neutrophils/100 WBC (Bld) 72.9 % 43.0 - 75.0 % [facility] Platelet mean volume (Bld) [Entitic vol] 9.5 fL 9.5 - 13.5 fL [facility] EO # 0.3 [facility] PLT 321 [facility] RBC 4.06 Low [facility] WBC 10.7 [facility] BOX TESTon 07-24-2024 BOX TEST SENT OUT YES [facility] BOX1 [facility] BOX2 07/24/24 [facility] OB TRANSVAGINALon 025 US OB TRANSVAGINAL EXAM: US OB TRANSVAGINAL HISTORY: Dating. COMPARISON: [...] II, MD, PHD at 06-Jul-2024 12:18:02 PM [facility] Normal Not Available Comment on above: Order Comment: US OB TRANSVAGINAL No LMP recorded. PAP ACOG PANEL 2: 30 to 65on 03-16-2022 . . Normal [facility] Comment on above: Result Comment: Perf ormed at: WB Performed By: #### H IV12 #### [facility] [address] [address] [address] Nolvia Ruvalcaba Age Gdln ACOG Testing 30-65 Normal [facility] Comment on above: Performed By: #### H IV12 #### [facility] [address] [address] [address] Nolvia Ruvalcaba DIAGNOSIS: Comment Normal [facility] Comment on above: Result Comment: NEGA TIVE FOR INTRAEPITHELIAL LESION OR MALIGNANCY. Performed at: WB Performed By: #### H IV12 #### [facility] [address] [address] [address] Nolvia Ruvalcaba HPV Aptima Negative Normal Negative [facility] Comment on above: Result Comment: This nucleic acid amplification test detects fourteen high-risk HPV types (16,18,31,33,35,39,45,51,52,56,58,59,66,68) without differentiation. Performed at: =G Performed By: #### H IV12 #### [facility] [address] [address] [address] Nolvia Ruvalcaba HPV Genotype Reflex Comment Normal [facility] Comment on above: Result Comment: Crit eria not met, HPV Genotype not performed. Performed at: WB Performed By: #### H IV12 #### [facility] [address] [address] [address] Nolvia Ruvalcaba Methodology: Comment Normal [facility] Comment on above: Result Comment: This liquid based ThinPrep(R) pap test was screened with the use of an image guided system. Performed at: WB Performed By: #### H IV12 #### [facility] [address] [address] [address] Nolvia Ruvalcaba Note: Comment Normal [facility] Comment on above: Result Comment: The Pap smear is a screening test designed to aid in the detection of premalignant and malignant conditions of the uterine cervix. It is not a diagnostic procedure and should not be used as the sole means of detecting cervical cancer. Both false-positive and false-negative reports do occur. . Performed at: WB Performed By: #### H IV12 #### [facility] [address] [place] [address] Dr. Nolvia Ruvalcaba Performed by: Comment Normal [facility] Comment on above: Result Comment: Angel Sanchez Licensed Dispensing Optician (ASCP) Performed at: WB Performed By: #### H IV12 #### [facility] [address] [place] [address] Dr. Nolvia Ruvalcaba Specimen adequacy: Comment Normal [facility] Comment on above: Result Comment: Sati sfactory for evaluation. Endocervical and/or squamous metaplastic cells (endocervical component) are present. Performed at: WB Performed By: #### H IV12 #### [facility] [address] [place] [address] Dr. Nolvia Ruvalcaba HEPATITIS C ANTIBODYon 12-11 Hep C Virus Ab <0.1 Normal 0.0-0.9 [facility] Comment on above: Result Comment: Nega [...] Hepatitis C Virus (HCV) RNA, Diagnosis, THERON (212227) and Hepatitis C Virus (HCV) Antibody with reflex to Quantitative Real-time PCR ([id number]). Performed By: #### H IV12 #### [facility] [address] [place] [address] Dr. Nolvia Ruvalcaba HIV 1 AND 2 WITH REFLEXon HIV Screen 4th Generation wRfx Non-Reactive Normal Non Reactive [facility] Comment on above: Result Comment: HIV Negative HIV-1/HIV-2 antibodies and HIV-1 p24 antigen were NOT detected. There is no laboratory evidence of HIV infection. Performed By: #### H IV12 #### [facility] [address] [place] [address] Dr. Nolvia Ruvalcaba SGPTon 12-10-2021 ALT [Catalytic activity/Vol] 59 U/L Normal 14-59 [facility] Comment on above: Performed By: #### A LT ####[facility] [address] [place], [place] [address]Dr. Nolvia Ruvalcaba CBC AUTO DIFFon 11-04-2021 BASO # 0.1 103/ul Normal 0.0-0.1 [facility] Comment on above: Performed By: #### C BC ####[facility] [address] [place], [place] [address]Dr. Nolvia Ruvalcaba Basophils/100 WBC (Bld) 0.4 % Normal 0.2-2.0 [facility] Comment on above: Performed By: #### C BC ####[facility] [address] [place], [place] [address]Dr. Nolvia Ruvalcaba EO # 0.2 103/ul Normal 0.0-0.7 [facility] Comment on above: Performed By: #### C BC ####[facility] [address] [place], [place] [address]Dr. Nolvia Ruvalcaba Eosinophils/100 WBC (Bld) 1.3 % Normal 0.9-7.0 [facility] Comment on above: Performed By: #### C BC ####[facility] [address] [place], [place] [address]Dr. Nolvia Ruvalcaba Erythrocyte distribution width (RBC) [Ratio] 14.2 % Normal 11.0-15.0 [facility] Comment on above: Performed By: #### C BC ####[facility] [address] [place], [place] [address]Dr. Nolvia Ruvalcaba Hematocrit (Bld) [Volume fraction] 28.8 % Critically low 36.0-48.0 [facility] Comment on above: Performed By: #### C BC ####[facility] [address] [place], [place] [address]Dr. Nolvia Ruvalcaba Hemoglobin (Bld) [Mass/Vol] 9.0 g/dL Critically low 12.0-16.0 [facility] Comment on above: Performed By: #### C BC ####[facility] [address] [id number] Nolvia Ruvalcaba IG # 0.16 10e3/ul Critically high 0.00-0.03 [facility] Comment on above: Performed By: #### C BC ####[facility] [address] [address]Dr. Nolvia Ruvalcaba IG % 1.1 % Critically high 0.0-0.5 [facility] Comment on above: Performed By: #### C BC ####[facility] [address] [address]Dr. Nolvia Jordon LYMPH # 1.8 103/ul Normal 1.2-3.8 [facility] Comment on above: Performed By: #### C BC ####[facility] [address] [address]Dr. Liyayaniv Ruvalcaba Lymphocytes/100 WBC (Bld) 12.4 % Critically low 20.5-60.0 [facility] Comment on above: Performed By: #### C BC ####[facility] [address] [address]Dr. Nolvia Jordon MANUAL DIFF REQ NO Normal [facility] Comment on above: Performed By: #### C BC ####[facility] [address] [address]Dr. Nolvia Ruvalcaba MCH (RBC) [Entitic mass] 28.6 pg Normal 26.7-34.0 [facility] Comment on above: Performed By: #### C BC ####[facility] [address] [address]Dr. Nolvia Ruvalcaba MCHC (RBC) [Mass/Vol] 31.3 g/dL Normal 29.9-35.2 [facility] Comment on above: Performed By: #### C BC ####[facility] [address] [place], [place] [address]Dr. Nolvia Ruvalcaba MCV (RBC) [Entitic vol] 91.4 fL Normal 81.0-99.0 [facility] Comment on above: Performed By: #### C BC ####[facility] [address] [id number]. Nolvia Ruvalcaba MONO # 1.0 103/ul Critically high 0.3-0.8 [facility] Comment on above: Performed By: #### C BC ####[facility] [address] [id number]. Nolvia Ruvalcaba Monocytes/100 WBC (Bld) 6.9 % Normal 1.7-12.0 [facility] Comment on above: Performed By: #### C BC ####[facility] [address] [address]Dr. Nolvia Ruvalcaba NEUT # 11.3 103/ul Critically high 1.4-6.5 [facility] Comment on above: Performed By: #### C BC ####[facility] [address] [address]Dr. Nolvia Ruvalcaba Neutrophils/100 WBC (Bld) 77.9 % Critically high 43.0-75.0 [facility] Comment on above: Performed By: #### C BC ####[facility] [address] [address]Dr. Nolvia Ruvalcaba Platelet mean volume (Bld) [Entitic vol] 9.8 fL Normal 9.5-13.5 [facility] Comment on above: Performed By: #### C BC ####[facility] [address] [id number]. Nolvia Ruvalcaba PLT 242 103/ul Normal 150-450 [facility] Comment on above: Performed By: #### C BC ####[facility] [address] [address]Dr. Nolvia Ruvalcaba RBC 3.15 106/ul Critically low 4.20-5.40 [facility] Comment on above: Performed By: #### C BC ####[facility] [address] [id number]. Nolvia Ruvalcaba WBC 14.6 103/ul Critically high 4.0-11.0 [facility] Comment on above: Performed By: #### C BC ####[facility] [address] [place], [place] [address]Dr. Nolvia Ruvalcaba CBC AUTO DIFFon 11-03-2021 BASO # 0.1 103/ul Normal 0.0-0.1 [facility] Comment on above: Performed By: #### C BC ####[facility] [address] [id number]. Nolvia Ruvalcaba Basophils/100 WBC (Bld) 0.3 % Normal 0.2-2.0 [facility] Comment on above: Performed By: #### C BC ####[facility] [address] [address]Dr. Nolvia Ruvalcaba EO # 0.1 103/ul Normal 0.0-0.7 [facility] Comment on above: Performed By: #### C BC ####[facility] [address] [address]Dr. Nolvia Ruvalcaba Eosinophils/100 WBC (Bld) 1.0 % Normal 0.9-7.0 [facility] Comment on above: Performed By: #### C BC ####[facility] [address] [address]Dr. Nolvia Ruvalcaba Erythrocyte distribution width (RBC) [Ratio] 14.2 % Normal 11.0-15.0 [facility] Comment on above: Performed By: #### C BC ####[facility] [address] [id number]. Nolvia Ruvalcaba Hematocrit (Bld) [Volume fraction] 33.5 % Critically low 36.0-48.0 [facility] Comment on above: Performed By: #### C BC ####[facility] [address] [id number]. Nolvia Ruvalcaba Hemoglobin (Bld) [Mass/Vol] 10.9 g/dL Critically low 12.0-16.0 [facility] Comment on above: Performed By: #### C BC ####[facility] [address] [id number]. Nolvia Ruvalcaba IG # 0.22 10e3/ul Critically high 0.00-0.03 [facility] Comment on above: Performed By: #### C BC ####[facility] [address] [id number]. Nolvia Ruvalcaba IG % 1.5 % Critically high 0.0-0.5 [facility] Comment on above: Performed By: #### C BC ####[facility] [address] [id number]. Nolvia Ruvalcaba LYMPH # 2.3 103/ul Normal 1.2-3.8 [facility] Comment on above: Performed By: #### C BC ####[facility] [address] [id number]. Nolvia Ruvalcaba Lymphocytes/100 WBC (Bld) 16.1 % Critically low 20.5-60.0 [facility] Comment on above: Performed By: #### C BC ####[facility] [address] [id number]. Nolvia Ruvalcaba MANUAL DIFF REQ NO Normal [facility] Comment on above: Performed By: #### C BC ####[facility] [address] [id number]. Nolvia Ruvalcaba MCH (RBC) [Entitic mass] 29.0 pg Normal 26.7-34.0 [facility] Comment on above: Performed By: #### C BC ####[facility] [address] [place] [id number]. Nolvia Ruvalcaba MCHC (RBC) [Mass/Vol] 32.5 g/dL Normal 29.9-35.2 [facility] Comment on above: Performed By: #### C BC ####[facility] Undasqgeon[address] [place] [id number]. Nolvia Ruvalcaba MCV (RBC) [Entitic vol] 89.1 fL Normal 81.0-99.0 [facility] Comment on above: Performed By: #### C BC ####[facility] Hdazvklknr8[address] [place] [id number]. Nolvia Jordon MONO # 1.0 103/ul Critically high 0.3-0.8 The [facility] Comment on above: Performed By: #### C BC ####[facility] Fyeirjlcfi[address] [place] [id number]. Nolvia Ruvalcaba Monocytes/100 WBC (Bld) 7.0 % Normal 1.7-12.0 [facility] Comment on above: Performed By: #### C BC ####[facility] [address]xss[address]46[address] [place], [place] [address]Kf. Nolvia Ruvalcaba NEUT # 10.6 103/ul Critically high 1.4-6.5 The [facility] Comment on above: Performed By: #### C BC ####[facility] Gosmtnrmup[address] [place] [id number]. Nolvia Ruvalcaba Neutrophils/100 WBC (Bld) 74.1 % Normal 43.0-75.0 [facility] Comment on above: Performed By: #### C BC ####[facility] Aesrgbwdfu4[address] [place] [id number]. Nolvia Ruvalcaba Platelet mean volume (Bld) [Entitic vol] 10.4 fL Normal 9.5-13.5 [facility] Comment on above: Performed By: #### C BC ####[facility] Fffpqsiyql[address] [place] [id number]. Nolvia Ruvalcaba PLT 320 103/ul Normal 150-450 [facility] Comment on above: Performed By: #### C BC ####[facility] Viiyqxalem1224 [place] [id number]. Nolvia Ruvalcaba RBC 3.76 106/ul Critically low 4.20-5.40 [facility] Comment on above: Performed By: #### C BC ####[facility] Hwdqufwmlx5[address] [place] [id number]. Nolvia Ruvalcaba WBC 14.3 103/ul Critically high 4.0-11.0 [facility] Comment on above: Performed By: #### C BC ####[facility] Oepecygwrl39[address] [place] [id number]. Nolvia Ruvalcaba CULTURE URINEon 11-03-2021 CULTURE URINE Culture Observations : NO GROWTH. Normal [facility] Comment on above: Performed By: #### U RCX #### [facility] [address] [address] [address] Nolvia Ruvalcaba DRUG SCREEN RAPID (URINE)on 11-03-2021 AMP Negative Normal NEGATIVE [facility] Comment on above: Performed By: #### D RUGRPD ####[facility] [address]xjbswizof[address] [place] [address]Dr. Nolvia Ruvalcaba BAR Negative Normal NEGATIVE [facility] Comment on above: Performed By: #### D RUGRPD ####[facility] Ykvdfvplna[address] [place] [address]Dr. Nolvia Ruvalcaba BUP Negative Normal NEGATIVE [facility] Comment on above: Performed By: #### D RUGRPD ####[facility] [address]qwoblazz[address] [place] [address]Dr. Nolvia Ruvalcaba BZO Negative Normal NEGATIVE [facility] Comment on above: Performed By: #### D RUGRPD ####[facility] Vgiulskqoq[address] [place] [address]Dr. Nolvia Ruvalcaba MARIO Negative Normal NEGATIVE [facility] Comment on above: Performed By: #### D RUGRPD ####[facility] Etdahjzjnx[address] [place] [address]Dr. Nolvia Ruvalcaba CUT-OFFS SEE BELOW Normal [facility] Comment on above: Result Comment: AMP (Amphetamine): 500ng/mL, BAR (Barbituates): 200 ng/mL, BZO (Benzodiazepines): 150 ng/mL, BUP (Buprenorphine): 10 ng/mL, MARIO (Cocaine): 150 ng/mL, mAMP (Methamphetamine): 500 ng/mL, MTD (Methadone): 200 ng/mL, OPI (Opiates): 100 ng/mL, OXY (Oxycodone): 100 ng/mL, PCP (Phencyclidine): 25 ng/mL, PPX (Propoxyphene): 300 ng/mL, THC (Cannabinoids): 50 ng/mL, TCA (Trycyclic Antidepressants): 300 ng/mL Performed By: #### D RUGRPD ####[facility] [address]xwmjm[address] [place] [address]DrDinorah Ruvalcaba DRUG CUT HEADER DRUG CLASS TEST SYSTEM CUT-OFF CONCENTRATIONS ARE FOLLOWS: Normal [facility] Comment on above: Performed By: #### D RUGRPD ####[facility] Cgwlyjtqxn90[address] [place] [id number]. Nolvia Ruvalcaba mAMP Negative Normal NEGATIVE [facility] Comment on above: Performed By: #### D RUGRPD ####[facility] Psustguhxr7239 [place] [phone]. Yiyaniv Ruvalcaba MTD Negative Normal NEGATIVE [facility] Comment on above: Performed By: #### D RUGRPD ####[facility] [address] [place] [address]Dr. Yiyaniv Ruvalcaba OPI Negative Normal NEGATIVE [facility] Comment on above: Performed By: #### D RUGRPD ####[facility] Manpnzagmr[address] [place] [address]Dr. Yiyaniv Ruvalcaba OXY Negative Normal NEGATIVE [facility] Comment on above: Performed By: #### D RUGRPD ####[facility] Pwfpsrzihb[address] [place] [address]Dr. Yiyaniv Ruvalcaba PCP Negative Normal NEGATIVE [facility] Comment on above: Performed By: #### D RUGRPD ####[facility] Rfpfgheswa1271 [place] [address]Dr. Nolvia Ruvalcaba PPX Negative Normal NEGATIVE [facility] Comment on above: Performed By: #### D RUGRPD ####[facility] Wieghhdvef[address] [place] [address]Dr. Nolvia Ruvalcaba TCA Negative Normal NEGATIVE [facility] Comment on above: Performed By: #### D RUGRPD ####[facility] Qkfnjarzms[address]3 [place] [address]Dr. Nolvia Ruvalcaba THC Negative Normal NEGATIVE [facility] Comment on above: Performed By: #### D RUGRPD ####[facility] Wdxsztgyab8[address] [place] [address]Dr. Yilan Ruvalcaba TYPE AND SCREENon 11-03-2021 TYPE AND SCREEN Negative Normal [facility] Comment on above: Performed By: #### T NS #### [facility] [address] [address] [address] Nolvia Ruvalcaba UA (CLEAN/CATCH) QUANTITATIVE CONSULTANT/MICRO I F IND.on 11-03-2021 Bilirubin Ql (U) Negative Normal NEGATIVE [facility] Comment on above: Performed By: #### U MICRO, UACSIND ####[facility] [address]azojb[address] [place] [address]Dr. Nolvia Ruvalcaba Clarity (U) SL CLOUDY Abnormal CLEAR [facility] Comment on above: Performed By: #### U MICRO, UACSIND ####[facility] Ydudjqcoia[address] [place] [address]Dr. Nolvia Ruvalcaba Color (U) LT. YELLOW Normal YELLOW [facility] Comment on above: Performed By: #### U MICRO, UACSIND ####[facility] Ubcnjyxelk[address] [place] [address]Dr. Nolvia Ruvalcaba Glucose Ql (U) Negative Normal NEGATIVE [facility] Comment on above: Performed By: #### U MICRO, UACSIND ####[facility] Endxrxf[address] [place], [place] [address]Dr. Nolvia Ruvalcaba Hemoglobin Ql (U) SMALL Abnormal NEGATIVE [facility] Comment on above: Performed By: #### U MICRO, UACSIND ####[facility] [address] [place], [place] [address]Dr. Nolvia Ruvalcaba Ketones Ql (U) Negative Normal NEGATIVE [facility] Comment on above: Performed By: #### U MICRO, UACSIND ####[facility] [address] [place], [place] [address]Dr. Nolvia Ruvalcaba LEUKOCYTES SMALL Abnormal NEGATIVE [facility] Comment on above: Performed By: #### U MICRO, UACSIND ####[facility] Bhegestzsr[address] [place] [address]Dr. Nolvia Ruvalcaba Nitrite Ql (U) Negative Normal NEGATIVE [facility] Comment on above: Performed By: #### U MICRO, UACSIND ####[facility] Vsxfvyibsr6[address] [place] [address]Dr. Nolvia Ruvalcaba pH (U) 6.0 [pH] Normal 5-9 [facility] Comment on above: Performed By: #### U MICRO, UACSIND ####[facility] [address]qmqxqnvha4[address] [place] [address]Dr. Nolvia Ruvalcaba SPEC GRAVITY >=1.030 Abnormal 1.005-<=1.025 [facility] Comment on above: Performed By: #### U MICRO, UACSIND ####[facility] Zvthcazdqa39[address] [place] [address]Dr. Nolvia Ruvalcaba UA PROTEIN Negative Normal NEGATIVE/ TRACE [facility] Comment on above: Performed By: #### U MICRO, UACSIND ####[facility] Nrcmyrrykm[address] [place] [address]Dr. Nolvia Jordon UR MICRO IND INDICATED Normal [facility] Comment on above: Performed By: #### U MICRO, UACSIND ####[facility] Jsbjghuudb47[address] [place] [address]Dr. Nolvia Ruvalcaba Urobilinogen Qn (U) 0.2 {Cami'U}/dL Normal 0.2 - 1. 0 [facility] Comment on above: Performed By: #### U MICRO, UACSIND ####[facility] [address] [place], [place] [address]Dr. Nolvia Jordon URINE MICROSCOPIC ONLYon BACTERIA MODERATE Abnormal NONE SEEN The [facility] Comment on above: Performed By: #### U MICRO, UACSIND ####[facility] [address] [place], [place] [address]Dr. Nolvia Jordon Bacteria identified Cx Nom (U) INDICATED Normal [facility] Comment on above: Performed By: #### U MICRO, UACSIND ####[facility] Wrwabsallx[address] [place] [address]Dr. Nolvia Ruvalcaba CAST NONE SEEN Normal NONE SEEN [facility] Comment on above: Performed By: #### U MICRO, UACSIND ####[facility] Cbxxdsxita[address] [place] [address]Dr. Nolvia Ruvalcaba Crystals LM Nom (Urine sed) NONE SEEN Normal NONE SEEN [facility] Comment on above: Performed By: #### U MICRO, UACSIND ####[facility] [address]eb[address]32[address] [place], [place] [address]Ww. Nolvia Ruvalcaba Epithelial cells LM Ql (Urine sed) MODERATE Abnormal NONE SEEN /RARE [facility] Comment on above: Performed By: #### U MICRO, UACSIND ####[facility] [address]um[address] [place], [place] [address]Mz. Nolvia Ruvalcaba MUCOUS NONE SEEN Normal NONE SEEN The [facility] Comment on above: Performed By: #### U MICRO, UACSIND ####[facility] Cvujkgpxba6[address] [place], [place] [address]Sh. Nolvia Ruvalcaba RBC 2-5 Abnormal 0-2 [facility] Comment on above: Performed By: #### U MICRO, UACSIND ####[facility] Nvmwsxdsoc5289 [place], [place] [address]Oy. Nolvia Ruvalcaba WBC 5-10 Abnormal NONE SEEN [facility] Comment on above: Performed By: #### U MICRO, UACSIND ####[facility] [address]ejltvr6[address] [place], [place] [address]Yw. Nolvia Ruvalcaba Covid-19 PCR ([facility])on 10-15 SARS-CoV-2 (COVID-19) RNA THERON+probe Ql (Unsp spec) Not detected Normal NOT DETECTED [facility] Comment on above: Result Comment: This test is not yet approved or cleared by the [place] FDA. When there are no FDA-approved or cleared tests available, and other criteria are met, FDA can make tests available under an emergency access mechanism called an Emergency Use Authorization (EUA). The EUA for this test is supported by the [employer] of Health and Human Service's (HHS's) declaration [...] SARS-CoV-2. Performed By: #### H IV12 #### [facility] [address] [address] [address] Nolvia Ruvalcaba GROUP B STREP CULTUREon 09-16 S. agalactiae Ag Ql (Unsp spec) Culture Observations: NEGATIVE FOR GROUP B STREPTOCOCCUS. Normal [facility] Comment on above: Performed By: #### G BSCX #### [facility] [address] [place] [address] Dr. Nolvia Ruvalcaba HEP C RNA BY PCR QUANT (NON- GRAPHICAL) Won 08-29-2021 HCV Genotype RTNI Normal [facility] Comment on above: Result Comment: Not indicated Performed By: #### H CVPCRN ####[facility] [address] [place] [address]DrDinorah Ruvalcaba HCV log10 UPTCAL Normal [facility] Comment on above: Result Comment: Unab le to calculate result since non-numeric result obtained for component test. Performed By: #### H CVPCRN ####[facility] [address]umd[address] [place] [address]DrDinorah Ruvalcaba Hepatitis C Quantitation Not detected Normal [facility] Comment on above: Performed By: #### H CVPCRN ####[facility] [address]ed[address] [place] [address]Dr. Nolvia Ruvalcaba Test Information: Comment Normal [facility] Comment on above: Result Comment: The quantitative range of this assay is 15 IU/mL to 100 million IU/mL. Performed By: #### H CVPCRN ####[facility] Z[address]zvyuicv[address] [place] [address]DrDinorah Ruvalcaba HIV 1 AND 2 WITH REFLEXon HIV Screen 4th Generation wRfx Non-Reactive Normal Non Reactive [facility] Comment on above: Result Comment: HIV Negative HIV-1/HIV-2 antibodies and HIV-1 p24 antigen were NOT detected. There is no laboratory evidence of HIV infection. Performed By: #### A 1C #### [facility] [address] [place] [address] Dr. Nolvia Ruvalcaba RPR QUANTon 08-29-2021 Rapid Plasma Reagin, Quant Non-Reactive Normal NonRea<1:1 [facility] Comment on above: Result Comment: Meghna desai Note: This test does not meet current guidelines for screening and diagnosis of syphilis. This test is intended for following treatment response in patients being treated for syphilis infection. To screen for syphilis infection, a reflex cascade that includes both RPR and a treponema-specific assay should be utilized, such as Treponema pallidum (Syphilis) Screening [place] (442990) or Rapid Plasma Reagin (RPR) Test With Reflex to Quantitative RPR and Confirmatory Treponema pallidum Antibodies (505704). Performed By: #### H IV12 #### [facility] [address] [address] [address] Nolvia Ruvalcaba GLUCOSE - 1HRon 08-18-2021 Glucose [Mass/Vol] 124 mg/dL Critically high 74-106 [facility] Comment on above: Performed By: #### G LU1HR ####[facility] [address] [place] [address]Dr. Nolvia Ruvalcaba HEMOGRAM AND PLATELon 2021 Hematocrit (Bld) [Volume fraction] 33.2 % Critically low 36.0-48.0 [facility] Comment on above: Performed By: #### H IV12 #### [facility] [address] [place] [address] Dr. Nolvia Ruvaclaba Hemoglobin (Bld) [Mass/Vol] 10.5 g/dL Critically low 12.0-16.0 [facility] Comment on above: Performed By: #### H IV12 #### [facility] [address] [place] [address] Dr. Nolvia Ruvalcaba MCH (RBC) [Entitic mass] 29.4 pg Normal 26.7-34.0 [facility] Comment on above: Performed By: #### H IV12 #### [facility] [address] [place] [address] Dr. Nolvia Ruvalcaba MCHC (RBC) [Mass/Vol] 31.6 g/dL Normal 29.9-35.2 [facility] Comment on above: Performed By: #### H IV12 #### [facility] [address] [place], [place] [address] Dr. Nolvia Ruvalcaba MCV (RBC) [Entitic vol] 93.0 fL Normal 81.0-99.0 [facility] Comment on above: Performed By: #### H IV12 #### [facility] [address] [address] [address] Nolvia Ruvalcaba PLT 303 103/ul Normal 150-450 [facility] Comment on above: Performed By: #### H IV12 #### [facility] [address] [place], [place] [address] Dr. Nolvia Ruvalcaba RBC 3.57 106/ul Critically low 4.20-5.40 [facility] Comment on above: Performed By: #### H IV12 #### [facility] [address] [address] [address] Nolvia Ruvalcaba WBC 12.3 103/ul Critically high 4.0-11.0 [facility] Comment on above: Performed By: #### H IV12 #### [facility] [address] [place], [place] [address] Dr. Nolvia Ruvalcaba US PREG PLACENTAon 2 US PREG PLACENTA EXAMINATION: US PREG PLACENTA HISTORY: Low lying placenta COMPARISON: Ultrasound placenta 07/30/2021 FINDINGS: PLACENTA: Posterior with lower margin 3.8 cm from os. CERVIX LENGTH: 4.6 cm; closed. HEART RATE: 138 bpm OTHER: None. IMPRESSION: 1. Posterior placenta which is no longer low-lying. Electronically authenticated by: FRANCIA CRENSHAW Date: 2021-08-18 16:15 Normal [facility] US PREG PLACENTAon 2 US PREG PLACENTA [...] by: FRANCIA CRENSHAW Date: 2021-07-30 17:39 Normal [facility] HEP C RNA BY PCR QUANT (NON- GRAPHICAL) Won 07-16-2021 HCV Genotype RTNI Normal [facility] Comment on above: Result Comment: Not indicated Performed By: #### H CVPCRN ####[facility] [address]hsrj[address] [place] [address]Dr. Nolvia Ruvalcaba HCV log10 UPTCAL Normal [facility] Comment on above: Result Comment: Unab le to calculate result since non-numeric result obtained for component test. Performed By: #### H CVPCRN ####[facility] [address]hburmvqd[address] [place] [address]Dr. Nolvia Ruvalcaba Hepatitis C Quantitation Not detected Normal [facility] Comment on above: Performed By: #### H CVPCRN ####[facility] [address] [place] [address]Dr. Nolvia Ruvalcaba Test Information: Comment Normal [facility] Comment on above: Result Comment: The quantitative range of this assay is 15 IU/mL to 100 million IU/mL. Performed By: #### H CVPCRN ####[facility] [address] [place], [place] [address]Dr. Nolvia Ruvalcaba HIV 1 AND 2 WITH REFLEXon HIV Screen 4th Generation wRfx Non-Reactive Normal Non Reactive [facility] Comment on above: Result Comment: HIV Negative HIV-1/HIV-2 antibodies and HIV-1 p24 antigen were NOT detected. There is no laboratory evidence of HIV infection. Performed By: #### H IV12 ####[facility] [address] [place], [place] [address]Dr. Nolvia Ruvalcaba RPR QUANTon 07-15-2021 Rapid Plasma Reagin, Quant Non-Reactive Normal NonRea<1:1 [facility] Comment on above: Result Comment: Plea se Note: This test does not meet current guidelines for screening and diagnosis of syphilis. This test is intended for following treatment response in patients being treated for syphilis infection. To screen for syphilis infection, a reflex cascade that includes both RPR and a treponema-specific assay should be utilized, such as Treponema pallidum (Syphilis) Screening [place] (534339) or Rapid Plasma Reagin (RPR) Test With Reflex to Quantitative RPR and Confirmatory Treponema pallidum Antibodies (534289). Performed By: #### R PRQ #### [facility] [address] [address] [address] Nolvia Ruvalcaba US PREG ANATOMY SINGLEon [...] KASEY NYE Date: 2021-06-18 16:55 Normal [facility] HEP B SURFACE AB QUALITATIVE on 05-30-2021 Hep B Surface Ab, Qual Reactive Normal [facility] Comment on above: Result Comment: Non Reactive: Inconsistent with immunity, less than 10 mIU/mL Reactive: Consistent with immunity, greater than 9.9 mIU/mL Performed By: #### H BSABQL ####[facility] [address] [place], [place] [address]Wk. Nolvia Ruvalcaba HEPATITIS C ANTIBODYon 05-30 Hep C Virus Ab <0.1 Normal 0.0-0.9 [facility] Comment on above: Result Comment: Nega tive: < 0.8 Indeterminate: 0.8 - 0.9 Positive: > 0.9 . The [facility] recommends that a positive HCV antibody result be followed up with a HCV Nucleic Acid Amplification test (178944). Performed By: #### H IV12 #### [facility] [address] [place], [place] [address] Dr. Nolvia Ruvalcaba HIV 1 AND 2 WITH REFLEXon HIV Screen 4th Generation wRfx Non-Reactive Normal Non Reactive [facility] Comment on above: Result Comment: HIV Negative HIV-1/HIV-2 antibodies and HIV-1 p24 antigen were NOT detected. There is no laboratory evidence of HIV infection. Performed By: #### H IV12 ####[facility] [address] [place] [id number]. Nolvia Ruvalcaba RPR QUANTon 05-30-2021 Rapid Plasma Reagin, Quant Non-Reactive Normal NonRea<1:1 [facility] Comment on above: Result Comment: Plea se Note: This test does not meet current guidelines for screening and diagnosis of syphilis. This test is intended for following treatment response in patients being treated for syphilis infection. To screen for syphilis infection, a reflex cascade that includes both RPR and a treponema-specific assay should be utilized, such as Treponema pallidum (Syphilis) Screening [place] (540130) or Rapid Plasma Reagin (RPR) Test With Reflex to Quantitative RPR and Confirmatory Treponema pallidum Antibodies (837189). Performed By: #### R PRQ ####[facility] [address]xv[address] [place] [id number]. Nolvia Ruvalcaba CHLAMYDIA/GONOCOCCUS THERON (SW AB/URINE/PAPon 05-28-2021 Chlamydia trachomatis, THERON Negative Normal Negative [facility] Comment on above: Performed By: #### C T/NGNA ####[facility] [address] [place] [id number] Ruvalcaba Neisseria gonorrhoeae, THERON Negative Normal Negative [facility] Comment on above: Performed By: #### C T/NGNA ####[facility] [address] [place] [id number] Ruvalcaba VAGINITIS/VAGINOSIS DNA PROB Edson 05-27-2021 Arielle species Negative Normal Negative [facility] Comment on above: Performed By: #### H IV12 #### [facility] [address] [address] [address] Nolvia Ruvalcaba Gardnerella vaginalis Negative Normal Negative [facility] Comment on above: Performed By: #### H IV12 #### [facility] [address] [address] [address] Nolvia Ruvalcaba Trichomonas vaginalis Negative Normal Negative [facility] Comment on above: Performed By: #### H IV12 #### [facility] [address] [address] [address] Nolvia Ruvalcaba HEP B SURFACE ANTIGEN SCREEN on 04-28-2021 HBsAg Screen Negative Normal Negative [facility] Comment on above: Performed By: #### H BSANS ####[facility] [address] [place] [address]DrDinorah Ruvalcaba HEPATITIS C VIRUS AB W/ REFL EX QUANTon 04-28-2021 HCV AB <0.1 Normal 0.0-0.9 [facility] Comment on above: Performed By: #### H CVPCRR ####[facility] [address] [place] [address]DrDinorah Ruvalcaba Interpretation: Comment Normal [facility] Comment on above: Result Comment: Nega tive Not infected with HCV, unless recent infection is suspected or other evidence exists to indicate HCV infection. Performed By: #### H CVPCRR ####[facility] [address] [place] [address]DrDinorah Ruvalcaba HIV 1 AND 2 WITH REFLEXon HIV Screen 4th Generation wRfx Non-Reactive Normal Non Reactive [facility] Comment on above: Result Comment: HIV Negative HIV-1/HIV-2 antibodies and HIV-1 p24 antigen were NOT detected. There is no laboratory evidence of HIV infection. Performed By: #### H IV12 #### [facility] [address] [place] [address] Dr. Nolvia Ruvalcaba RPR QUANTon 04-28-2021 Rapid Plasma Reagin, Quant Non-Reactive Normal NonRea<1:1 [facility] Comment on above: Performed By: #### R PRQ ####[facility] [address] [place] [address]Dr. Nolvia Ruvalcaba RUBELLA AB IGGon 04-28-2021 Rubella Antibodies, IgG 1.50 index Normal Immune >0.99 [facility] Comment on above: Result Comment: Non- immune <0.90 Equivocal 0.90 - 0.99 Immune >0.99 Performed By: #### H IV12 #### [facility] [address] [place] [address] Dr. Nolvia Ruvalcaba CBC AUTO DIFFon 04-27-2021 BASO # 0.0 103/ul Normal 0.0-0.1 [facility] Comment on above: Performed By: #### H IV12 #### [facility] [address] [place] [address] Dr. Nolvia Ruvalcaba Basophils/100 WBC (Bld) 0.3 % Normal 0.2-2.0 [facility] Comment on above: Performed By: #### H IV12 #### [facility] [address] [place] [address] Dr. Nolvia Ruvalcaba EO # 0.1 103/ul Normal 0.0-0.7 [facility] Comment on above: Performed By: #### H IV12 #### [facility] [address] [place] [address] Dr. Nolvia Ruvalcaba Eosinophils/100 WBC (Bld) 1.4 % Normal 0.9-7.0 [facility] Comment on above: Performed By: #### H IV12 #### [facility] [address] [place] [address] Dr. Nolvia Ruvalcaba Erythrocyte distribution width (RBC) [Ratio] 12.4 % Normal 11.0-15.0 [facility] Comment on above: Performed By: #### H IV12 #### [facility] [address] [place] [address] Dr. Nolvia Ruvalcaba Hematocrit (Bld) [Volume fraction] 40.7 % Normal 36.0-48.0 [facility] Comment on above: Performed By: #### H IV12 #### [facility] [address] [place] [address] Dr. Nolvia Ruvalcaba Hemoglobin (Bld) [Mass/Vol] 13.5 g/dL Normal 12.0-16.0 [facility] Comment on above: Performed By: #### H IV12 #### [facility] [address] [place] [address] Dr. Nolvia Ruvalcaba IG # 0.04 10e3/ul Critically high 0.00-0.03 [facility] Comment on above: Performed By: #### H IV12 #### [facility] [address] [place] [address] Dr. Nolvia Ruvalcaba IG % 0.4 % Normal 0.0-0.5 [facility] Comment on above: Performed By: #### H IV12 #### [facility] [address] [place] [address] Dr. Nolvia Ruvalcaba LYMPH # 1.3 103/ul Normal 1.2-3.8 [facility] Comment on above: Performed By: #### H IV12 #### [facility] [address] [place] [address] Dr. Nolvia Ruvalcaba Lymphocytes/100 WBC (Bld) 13.8 % Critically low 20.5-60.0 [facility] Comment on above: Performed By: #### H IV12 #### [facility] [address] [place] [address] Dr. Nolvia Ruvalcaba MANUAL DIFF REQ NO Normal [facility] Comment on above: Performed By: #### H IV12 #### [facility] [address] [place] [address] Dr. Nolvia Ruvalcaba MCH (RBC) [Entitic mass] 30.1 pg Normal 26.7-34.0 [facility] Comment on above: Performed By: #### H IV12 #### [facility] [address] [address] [address] Nolvia Ruvalcaba MCHC (RBC) [Mass/Vol] 33.2 g/dL Normal 29.9-35.2 [facility] Comment on above: Performed By: #### H IV12 #### [facility] [address] [address] [address] Nolvia Ruvalcaba MCV (RBC) [Entitic vol] 90.8 fL Normal 81.0-99.0 [facility] Comment on above: Performed By: #### H IV12 #### [facility] [address] [place] [address] Dr. Nolvia Ruvalcaba MONO # 0.4 103/ul Normal 0.3-0.8 [facility] Comment on above: Performed By: #### H IV12 #### [facility] [address] [place] [address] Dr. Nolvia Ruvalcaba Monocytes/100 WBC (Bld) 4.2 % Normal 1.7-12.0 [facility] Comment on above: Performed By: #### H IV12 #### [facility] [address] [place] [address] Dr. Nolvia Ruvalcaba NEUT # 7.5 103/ul Critically high 1.4-6.5 [facility] Comment on above: Performed By: #### H IV12 #### [facility] [address] [place] [address] Dr. Nolvia Ruvalcaba Neutrophils/100 WBC (Bld) 79.9 % Critically high 43.0-75.0 [facility] Comment on above: Performed By: #### H IV12 #### [facility] [address] [place] [address] Dr. Nolvia Ruvalcaba Platelet mean volume (Bld) [Entitic vol] 9.3 fL Critically low 9.5-13.5 [facility] Comment on above: Performed By: #### H IV12 #### [facility] [address] [place] [address] Dr. Nolvia Ruvalcaba PLT 322 103/ul Normal 150-450 [facility] Comment on above: Performed By: #### H IV12 #### [facility] [address] [address] [address] Nolvia Ruvalcaba RBC 4.48 106/ul Normal 4.20-5.40 [facility] Comment on above: Performed By: #### H IV12 #### [facility] [address] [address] [address] Nolvia Ruvalcaba WBC 9.4 103/ul Normal 4.0-11.0 [facility] Comment on above: Performed By: #### H IV12 #### [facility] [address] [address] [address] Nolvia Ruvalcaba CULTURE URINEon 04-27-2021 CULTURE URINE Culture Observations : LIGHT GROWTH OF MIXED GENITAL SPENCER. NO POTENTIAL PATHOGENS SEEN. Normal [facility] Comment on above: Performed By: #### U RCX ####[facility] [id number] [place], [place] [address]Dr. Nolvia Ruvalcaba GLYCOHEMOGLOBIN A1Con 2021 ADA RECOMMENDATION ADA THERAPEUTIC TARGET 6.0 - 7.0 ACTION SUGGESTED > 7.0 Normal [facility] Comment on above: Performed By: #### A 1C #### [facility] [address] [address] [address] Nolvia Ruvalcaba Glucose [Mass/Vol] 108 mg/dL Normal [facility] Comment on above: Performed By: #### A 1C #### [facility] [address] [address] [address] Nolvia Ruvalcaba HbA1c (Bld) [Mass fraction] 5.4 % Normal <=6.0 [facility] Comment on above: Performed By: #### A 1C #### [facility] [address] [address] [address] Nolvia Ruvalcaba TYPE AND SCREENon 04-27-2021 TYPE AND SCREEN Negative Normal [facility] Comment on above: Performed By: #### T NS ####[facility] [id number] [address]. Nolvia Ruvalcaba US PREG TVon 03-27-2021 US [...] by: FRANCIA CRENSHAW Date: 2021-03-27 09:39 Normal [facility] Vital Signs Date Time Vital Sign Value Performing Clinician Facility 08-29-2024 15:37-0400 Body mass index (BMI) [Ratio] 27.06 kg/m2 Cindy ZHU Work Phone: [facility] 08-29-2024 15:37-0400 Body weight 80.74 kg Cindy ZHU Work Phone: [facility] 08-29-2024 15:37-0400 Diastolic blood pressure 70 mm[Hg] Cindy ZHU Work Phone: [facility] 08-29-2024 15:37-0400 Systolic blood pressure 122 mm[Hg] Cindy ZHU Work Phone: [facility] 08-02-2024 09:48-0400 Body mass index (BMI) [Ratio] 26.72 kg/m2 Arelis Mary Lou DO Work Phone: [facility] 08-02-2024 09:48-0400 Body weight 79.72 kg Arelis Mary Lou DO Work Phone: [facility] 08-02-2024 09:48-0400 Diastolic blood pressure 70 mm[Hg] Arelis Mary Lou DO Work Phone: [facility] 08-02-2024 09:48-0400 Systolic blood pressure 112 mm[Hg] Arelis Mary Lou DO Work Phone: [facility] 02-24-2023 11:15-0500 Body height 172.72 cm Jenn Rosy Other [facility] Other 02-24-2023 11:15-0500 Body mass index (BMI) [Ratio] 26.76 kg/m2 Jenn Rosy Other [facility] Other 02-24-2023 11:15-0500 Body weight 79.83 kg Jenn Rosy Other [facility] Other 02-24-2023 11:15-0500 Diastolic blood pressure 64 mm[Hg] Jenn Gallegos Other [facility] Other 02-24-2023 11:15-0500 Respiratory rate 16 /min Jenn Gallegos Other [facility] Other 02-24-2023 11:15-0500 SaO2% (BldA) [Mass fraction] 99 % Jenn Rosy Other [facility] Other 02-24-2023 11:15-0500 Systolic blood pressure 129 mm[Hg] Jenn Gallegos Other [facility] Other 05-06-2022 14:45-0400 Body height 172.72 cm Jenn Gallegos Other [facility] Other 05-06-2022 14:45-0400 Body mass index (BMI) [Ratio] 27.85 kg/m2 Jenn Gallegos Other [facility] Other 05-06-2022 14:45-0400 Body weight 83.1 kg Jenn Gallegos Other [facility] Other 05-06-2022 14:45-0400 Diastolic blood pressure 76 mm[Hg] Jenn Wilsonmer Other [facility] Other 05-06-2022 14:45-0400 Respiratory rate 16 /min Jenn Gallegos Other [facility] Other 05-06-2022 14:45-0400 SaO2% (BldA) [Mass fraction] 99 % Jenn Gallegos Other [facility] Other 05-06-2022 14:45-0400 Systolic blood pressure 110 mm[Hg] Jenn Wilsonmer Other [facility] Other 02-11-2022 16:30-0500 Body height 172.72 cm Mike Estrada Other [facility] Other 02-11-2022 16:30-0500 Body mass index (BMI) [Ratio] 28.64 kg/m2 Mike Estrada Other [facility] Other 02-11-2022 16:30-0500 Body weight 85.46 kg Mike Estrada Other [facility] Other 02-11-2022 16:30-0500 Diastolic blood pressure 80 mm[Hg] Mike Estrada Other [facility] Other 02-11-2022 16:30-0500 Respiratory rate 16 /min Mike Estrada Other [facility] Other 02-11-2022 16:30-0500 SaO2% (BldA) [Mass fraction] 97 % Mike Estrada Other [facility] Other 02-11-2022 16:30-0500 Systolic blood pressure 124 mm[Hg] Mike Estrada Other [facility] Other 02-11-2021 16:15-0500 Body height 172.72 cm Jenn Gallegos Other [facility] Other 02-11-2021 16:15-0500 Body mass index (BMI) [Ratio] 27.37 kg/m2 Jenn Gallegos Other [facility] Other 02-11-2021 16:15-0500 Body weight 81.65 kg Jenn Gallegos Other [facility] Other 02-11-2021 16:15-0500 Diastolic blood pressure 62 mm[Hg] Jenn Gallegos Other [facility] Other 02-11-2021 16:15-0500 Respiratory rate 16 /min Jenn Gallegos Other [facility] Other 02-11-2021 16:15-0500 SaO2% (BldA) [Mass fraction] 99 % Jenn Gallegos Other [facility] Other 02-11-2021 16:15-0500 Systolic blood pressure 118 mm[Hg] Jenn Gallegos Other [employer] [facility] Other Encounters Encounter Date Encounter Type Care Provider Facility Start: 08-29-2024 End: 08-29-2024 Patient encounter procedure Cindy ZHU Work Phone: [facility] Start: 08-29-2024 End: 08-29-2024 Periodic preventive med est patient 18-39 yrs Cindy ZHU Work Phone: [facility] Comment on above: Well woman exam with routine gynecological exam; Screening, , for anatomic survey ([facility]); Exposure to STD; Need for maternal serum alpha-protein (MSAFP) screening ([facility]); Second trimester ([facility]); 18 weeks gestation of ([facility]) Start: 08-29-2024 End: 08-29-2024 Bamboo flowsheet Cindy ZHU Work Phone: [facility] Start: 08-29-2024 End: 08-29-2024 Bamboo flowsheet Cindy ZHU Work Phone: [facility] Start: 08-02-2024 End: 08-02-2024 Bamboo flowsheet Arelis Mary Lou DO Work Phone: [facility] Start: 08-02-2024 End: 08-02-2024 Bamboo flowsheet Arelis Mary Lou DO Work Phone: [facility] Start: 08-02-2024 End: 08-02-2024 flow sheet Arelis Mary Lou DO Work Phone: [facility] Comment on above: Second trimester pre gnancy ([facility]); 14 weeks gestation of ([facility]) Start: 08-02-2024 End: 08-02-2024 ambulatory ARELIS MARY LOU Not Available Start: 07-24-2024 End: 07-24-2024 Clinisync Result Encounter Arelis Mary Lou DO Work Phone: [facility] External Department Unsolicited Start: 07-24-2024 End: 07-24-2024 Clinisync Result Encounter Arelis Mary Lou DO Work Phone: [facility] External Department Unsolicited Start: 07-05-2024 End: 07-05-2024 ambulatory ARELIS MARY LOU Not Available Start: 02-24-2023 End: 02-24-2023 ambulatory Jenn Gallegos Other [facility] Other Start: 02-24-2023 Encounter for genera l adult medical examination without abnormal findings Jenn Rosy [facility] Start: 02-24-2023 Periodic preventive med est patient 18-39 yrs Jenn Rosy [facility] Start: 05-06-2022 End: 05-06-2022 ambulatory Jenn Rsoy Other [facility] Other Start: 05-06-2022 Office outpatient vi sit 15 minutes Jenn Rosy [facility] Start: 03-10-2022 End: 03-10-2022 ambulatory JENN GALLEGOS Facility:[facility] Start: 02-11-2022 End: 02-11-2022 ambulatory Mike Estrada Other [facility] Other Start: 02-11-2022 Encounter for genera l adult medical examination without abnormal findings Mike Estrada [facility] Start: 02-11-2022 Periodic preventive med est patient 18-39 yrs Mike Estrada [facility] Start: 12-10-2021 End: 12-11-2021 ambulatory JENN GALLEGOS Facility:[facility] Start: 11-03-2021 End: 11-05-2021 Evaluation and management of inpatient JENN GALLEGOS Facility:[facility] Start: 11-02-2021 Encounter for preprocedural laboratory examination DR ARELIS BARRETO [facility] Start: 10-31-2021 End: 11-01-2021 ambulatory JENN GALLEGOS [...] Facility:[facility] Start: 04-27-2021 End: 04-28-2021 ambulatory JENN ROSY Facility:[facility] Start: 03-27-2021 End: 03-28-[address] ARELIS BARRETO Facility:[facility] Start: 02-11-2021 End: 02-11-2021 ambulatory Jenn Gallegos Other [facility] Other Start: 02-11-2021 Encounter for genera l adult medical examination without abnormal findings Jenn Rosy [facility] Start: 02-11-2021 Periodic preventive med est patient 18-39 yrs Jenn Rosy [facility] Start: 02-11-2021 Telephone encounter Jenn Rosy [facility] Start: 01-03-2018 End: 01-03-2018 Patient encounter procedure Gosia Garcias Facility:[facility] Procedures Date Procedure Procedure Detail Performing Clinician Start: 08-29-2024 Urnls dip stick/tabl et rgnt non-auto w/o micrscp Cindy Silva PA Work Phone: Start: 08-02-2024 Urnls dip stick/tabl et rgnt non-auto w/o micrscp Arelis Mary Lou DO Work Phone: Start: 07-24-2024 ALL CBC WITH AUTO DIFF Arelis Mary Lou DO Work Phone: Start: 07-24-2024 BOX TEST Arelis Fazi o DO Work Phone: Start: 07-13-2023 Microscopic observat ion [Identifier] in Cervix by Cyto stain Arelis Mary Lou DO Work Phone: Start: 11-03-2021 Extraction of Produc ts of Conception, Low Cervical, Open Approach JENN GALLEGOS Plan of Treatment Date Care Activity Detail Author Start: 07-12-2026 Screening for malign ant neoplasm of cervix [facility] Start: 10-15-2024 Influenza vaccination [facility] Start: 08-29-2024 End: 08-29-2024 Patient encounter procedure 08/29/2024 3:30 PM EDT Routine [facility] [address] [place] [address] Cindy Silva PA [address] [place] [address] Arrived [facility] Comment on above: Arrived Start: 08-29-2024 End: 09-29-2024 Alpha fetoprotein, maternal Alpha fetoprotein, maternal Lab Routine Need for maternal serum alpha-protein (MSAFP) screening ([facility]) Expected: 08/29/2024 (Approximate), Expires: 09/29/2024 [facility] Comment on above: Expected: 08/29/2024 (Approximate), Expires: 09/29/2024 Start: 08-29-2024 End: 11-29-2024 US for US OB 14+ weeks anatomy scan Imaging Routine Screening, , for anatomic survey ([facility]) Expected: 08/29/2024, Expires: 11/29/2024 [facility] Comment on above: Expected: 08/29/2024 , Expires: 11/29/2024 Start: 08-02-2024 End: 08-02-2024 Patient encounter procedure [facility] Comment on above: Arrived Start: 2020 Screening for malign ant neoplasm of cervix HPV/Cotest [facility] CHLAMYDIA TRACHOMATI S (GENITO/STI) CHLAMYDIA TRACHOMATIS (GENITO/STI) Lab Routine Exposure to STD Ordered: 08/29/2024 [facility] Comment on above: Ordered: 08/29/2024 Cytology Cervical or vaginal smear or scraping study Pap Smear Pathology and Cytology Routine Well woman exam with routine gynecological exam Ordered: 08/29/2024 [facility] Work Phone: Comment on above: Ordered: 08/29/2024 Human papilloma viru s DNA [Presence] in Unspecified specimen by Probe with amplification HPV DNA probe, amplified Microbiology Routine Well woman exam with routine gynecological exam Ordered: 08/29/2024 [facility] Comment on above: Ordered: 08/29/2024 Neisseria gonorrhoea e DNA [Presence] in Unspecified specimen by THERON with probe detection Neisseria gonorrhea DNA probe, direct Lab Routine Exposure to STD Ordered: 08/29/2024 [facility] Comment on above: Ordered: 08/29/2024 SURESWAB(R) ADVANCED VAGINITIS PLUS, TMA SURESWAB(R) ADVANCED VAGINITIS PLUS, TMA Pathology and Cytology Routine Exposure to STD Ordered: 08/29/2024 [facility] Comment on above: Ordered: 08/29/2024 Immunizations Immunization Date Immunization Notes Care Provider Fa darien 04-30-2020 COVID-19 Vaccine Pfi zer - Documentation Purposes Only Jenn Gallegos Other [facility] Other 04-09-2020 COVID-19 Vaccine Pfi zer - Documentation Purposes Only Jenn Gallegos Other [facility] [employer] [facility] Other 11-28-2019 influenza, injectabl e, quadrivalent, preservative free Jenn Gallegos Other [facility] [employer] [facility] Other 11-28-2019 influenza virus vaccine, unspecified formulation Arelis Barreto DO Work Phone: [facility] Healthcare Payers Date Payer Category Payer [facility] er [id number] 2023 Unknown [id number] 2022 Medicaid (Managed Care) [place] [id number] 2018 Private Health Insurance [id number] 2018 Self-pay 1990 Unknown [id number] 2.16.840.1.424093.3.579.2. 593 1990 Unknown [id number] 2.16.840.1.815922.3.579.2. 593 1990 Unknown [id number] 2.16.840.1.218182.3.579.2. 593 1990 Unknown [id number] 2.16.840.1.615054.3.579.2. 593 1990 Unknown [id number] 2.16.840.1.025002.3.579.2. 593 1990 Unknown [id number] 2.16.840.1.595378.3.579.2. 593 1990 Unknown [id number] 2.16.840.1.396145.3.579.2. 593 1990 Unknown [id number] 2.16.840.1.703132.3.579.2. 593 1990 Unknown [id number] 2.16.840.1.640255.3.579.2. 593 1990 Unknown [id number] 2.16.840.1.948827.3.579.2. 593 1990 Unknown [id number] 2.16.840.1.715486.3.579.2. 593 1990 Unknown [id number] 2.16.840.1.382637.3.579.2. 593 1990 Unknown [id number] 2.16.840.1.391781.3.579.2. 593 1990 Unknown [id number] 2.16.840.1.790561.3.579.2. 593 1990 Unknown [id number] 2.16.840.1.376686.3.579.2. 593 1990 Unknown [id number] 2.16.840.1.473285.3.579.2. 1259 1990 Unknown [id number] 2.16.840.1.815989.3.579.2. 1259 1990 Unknown [id number] 2.16.840.1.849075.3.579.2. 1259 1959 Blue Cross Blue Shield [id number] 2.16.840.1.361022.19 1959 Medicaid [id number] 1959 Unknown [id number] Unknown [id number] 2.16.840.1.296141.3.579.2. 531 Social History Date Type Detail Facility Unknown if ever smoked [facility] [email or web address] Other Sex Assigned At [employer] [facility] [email or web address] Other Tobacco smoking status [facility] Tobacco smoking consumption unknown [facility] Start: 05-04-2024 [facility] Start: 1990 Sex assigned at Not on file [facility] Clinical Notes 02-11-2021 to 08-29-2024 MARKO Phelps - 08/29/2024 3:30 PM MARKO Mcnally - 08/02/2024 9:20 AM EDT Note Date & Type Note Facility 08-29-2024 History of Presen t illness Narrative Reason for Appointment: Patient ID: Arti Mckeon is a 33 y.o. female who presents for Routine Visit Patient presents today for Annual Exam., STD Check., and Return OB appointment. MEDICATIONS Current Outpatient Medications Medication Instructions albuterol HFA (ProAir HFA) 90 mcg/act inhaler 1 puff, Inhalation, Every 4 hours PRN docusate sodium (COLACE) 100 mg, 2 times daily PRN Multiple Vitamin (multivitamin) tablet 1 tablet, Daily polyethylene glycol, PEG, 3350 (Miralax) 17 g packet Take by mouth ALLERGIES Allergies Allergen Reactions Penicillin G Other Reaction(s): Unknown Sulfa Antibiotics Hives Other Reaction(s): Unknown Penicillins Rash PROBLEMS Active Ambulatory Problems Diagnosis Date Noted No Active Ambulatory Problems Resolved Ambulatory Problems Diagnosis Date Noted No Resolved Ambulatory Problems Past Medical History: Diagnosis Date Allergies Asthma (HCC) Genital warts 2011 Pelvic pain 2007 HISTORY PAST MEDICAL HISTORY SOCIAL HISTORY Past Medical History: Diagnosis Date Allergies Asthma (HCC) Genital warts 2011 Pelvic pain 2006 bilateral Social History Tobacco Use Smoking status: Not on file Smokeless tobacco: Not on file Substance Use Topics Alcohol use: Not on file Drug use: Not on file FAMILY HISTORY Family History Problem Relation Name Age of Onset Other (Cerebrovascular accident) Maternal Grandfather SURGICAL HISTORY Past Surgical History: Procedure Laterality Date SECTION, LOW TRANSVERSE 03/02/2019 due to previous 4th degree tear SECTION, LOW TRANSVERSE 11/05/2021 REVIEW OF SYSTEMS Review of Systems: Review of Systems Constitutional: Negative. HENT: Negative. Eyes: Negative. Respiratory: Negative. Cardiovascular: Negative. Gastrointestinal: Negative. Musculoskeletal: Negative. Skin: Negative. Neurological: Negative. Psychiatric/Behavioral: Negative. All other systems reviewed and are negative. Hematological: Negative. Endocrine: Negative. OBJECTIVE Objective: Physical Exam Constitutional: Appearance: Normal appearance. She is well-developed. Genitourinary: Vulva normal. Right Adnexa: not tender and no mass present. Left Adnexa: not tender and no mass present. No cervical discharge. Breasts: Breasts are soft. Right: Normal. Left: Normal. HENT: Head: Normocephalic. Nose: Nose normal. Mouth/Throat: Mouth: Mucous membranes are moist. Cardiovascular: Rate and Rhythm: Normal rate and regular rhythm. Pulmonary: Effort: Pulmonary effort is normal. Breath sounds: Normal breath sounds. Abdominal: General: Bowel sounds are normal. There is no distension. Palpations: Abdomen is soft. Tenderness: There is no abdominal tenderness. There is no guarding or rebound. Musculoskeletal: General: No swelling. Normal range of motion. Cervical back: Normal range of motion. Right lower leg: No edema. Left lower leg: No edema. Neurological: General: No focal deficit present. Mental Status: She is alert and oriented to person, place, and time. Skin: General: Skin is warm and dry. Psychiatric: Mood and Affect: Mood normal. Behavior: Behavior normal. Vitals and nursing note reviewed. Exam conducted with a door maker present. Vitals: Estimated body mass index is 27.06 kg/m as calculated from the following: Height as of 07/14/23: 5' 8 . Weight as of this encounter: 178 lb. BP: 122/70 Patient's last menstrual period was 05/08/2024. ASSESSMENT & PLAN ICD-10-CM 1. Well woman exam with routine gynecological exam Z01.419 Pap Smear HPV DNA probe, amplified 2. Screening, , for anatomic survey ([facility]) Z36.89 US OB 14+ weeks anatomy scan 3. Exposure to STD Z20.2 SURESWAB(R) ADVANCED VAGINITIS PLUS, TMA CHLAMYDIA TRACHOMATIS (GENITO/STI) Neisseria gonorrhea DNA probe, direct 4. Need for maternal serum alpha-protein (MSAFP) screening ([facility]) Z36.1 Alpha fetoprotein, maternal Alpha fetoprotein, maternal 5. Second trimester ([facility]) Z34.92 6. 18 weeks gestation of ([facility]) Z3A.18 POCT urinalysis dipstick manually resulted Return OB/Annual Exam: Patient presents today for an annual exam/routine obstetrics appointment. Patient is currently 18w5d . Patient is doing well and states she has no complaints. Pap/cultures was obtained without difficulty and patient was given msAFP/Anatomy US order to have obtained. Orders Placed This Encounter Procedures HPV DNA probe, amplified US OB 14+ weeks anatomy scan CHLAMYDIA TRACHOMATIS (GENITO/STI) Neisseria gonorrhea DNA probe, direct Alpha fetoprotein, maternal POCT urinalysis dipstick manually resulted Follow Up: Patient is to return to our office in 4 weeks for routine OB appointment Documented by Jannie Lopez MA on behalf of: MARKO Phelps documented in this encounter [facility] 08-02-2024 History of Presen t illness Narrative Reason for Appointment: Patient ID: Arti Mckeon is a 33 y.o. female who presents for Routine Visit Patient presents today for Return OB appointment. MEDICATIONS Current Outpatient Medications Medication Instructions albuterol HFA (ProAir HFA) 90 mcg/act inhaler 1 puff, Inhalation, Every 4 hours PRN docusate sodium (COLACE) 100 mg, 2 times daily PRN Multiple Vitamin (multivitamin) tablet 1 tablet, Daily polyethylene glycol, PEG, 3350 (Miralax) 17 g packet Take by mouth ALLERGIES Allergies Allergen Reactions Sulfa Antibiotics Hives Penicillins Rash PROBLEMS Active Ambulatory Problems Diagnosis Date Noted No Active Ambulatory Problems Resolved Ambulatory Problems Diagnosis Date Noted No Resolved Ambulatory Problems Past Medical History: Diagnosis Date Allergies Asthma (HCC) Genital warts 2011 Pelvic pain 2007 HISTORY PAST MEDICAL HISTORY SOCIAL HISTORY Past Medical History: Diagnosis Date Allergies Asthma (HCC) Genital warts 2012 Pelvic pain 2007 bilateral Social History Tobacco Use Smoking status: Not on file Smokeless tobacco: Not on file Substance Use Topics Alcohol use: Not on file Drug use: Not on file FAMILY HISTORY Family History Problem Relation Name Age of Onset Other (Cerebrovascular accident) Maternal Grandfather SURGICAL HISTORY No past surgical history on file. REVIEW OF SYSTEMS Review of Systems: Review of Systems Constitutional: Negative. HENT: Negative. Eyes: Negative. Respiratory: Negative. Cardiovascular: Negative. Gastrointestinal: Negative. Genitourinary: Negative. Musculoskeletal: Negative. Skin: Negative. Neurological: Negative. All other systems reviewed and are negative. Hematological: Negative. Endocrine: Negative. Allergic/Immunologic: Negative. OBJECTIVE Objective: Physical Exam Constitutional: Appearance: Normal appearance. She is normal weight. HENT: Head: Normocephalic. Cardiovascular: Rate and Rhythm: Normal rate. Pulses: Normal pulses. Pulmonary: Effort: Pulmonary effort is normal. Breath sounds: Normal breath sounds. Abdominal: Palpations: Abdomen is soft. Musculoskeletal: General: Normal range of motion. Neurological: General: No focal deficit present. Mental Status: She is alert and oriented to person, place, and time. Psychiatric: Mood and Affect: Mood normal. Behavior: Behavior normal. Thought Content: Thought content normal. Judgment: Judgment normal. Vitals and nursing note reviewed. Vitals: Estimated body mass index is 26.72 kg/m as calculated from the following: Height as of 07/14/23: 5' 8 . Weight as of this encounter: 175 lb 12 oz. BP: 112/70 Patient's last menstrual period was 05/08/2024. ASSESSMENT & PLAN ICD-10-CM 1. Second trimester ([facility]) Z34.92 POCT urinalysis dipstick manually resulted 2. 14 weeks gestation of ([facility]) Z3A.14 Return OB: Patient presents today for a routine obstetrics appointment. Patient is currently 14w6d . Patient states she is doing well but has complaints of being tired due to current . Patient has verbalizes frequent movement. Orders Placed This Encounter Procedures POCT urinalysis dipstick manually resulted Follow Up: Patient is to return to office in 4week for routine OB appointment. Documented by MARKO Phelps on behalf of: Arelis Barreto DO documented in this encounter [facility] 02-24-2023 Evaluation note Encounter Date Diagnosis Assessment [...] persistent asthma without complication (ICD-10 - J45.40) [employer] Other 03-23-2023 Evaluation note* Encounter Date Diagnosis Assessment Notes Treatment Notes Treatment Clinical Notes Apr, Left wrist tendonitis (ICD-10 - [...] would consider doing a tendon sheath injection. [employer] Other 12-29-2022 Evaluation note* Encounter Date Diagnosis Assessment Notes Treatment Notes Treatment Clinical Notes Jan, Moderate persistent asthma without complication [...] issue arises. Jan, Anxiety (ICD-10 - F41.9) [employer] Other 09-20-2022 NoteOPERATIVE NOTE OPERATION DATE: 11/03/2021 PROCEDURE: Repeat low transverse section. PREOPERATIVE DIAGNOSIS: 1. Intrauterine 39 weeks. 2. Previous . POSTOPERATIVE DIAGNOSIS: 1. Intrauterine 39 weeks. 2. Previous . ANESTHESIA: Spinal with Duramorph. SURGEON: Arelis Barreto D.O. FACILITIES MAINTENANCE ENGINEER: JESSE Cruz URINE OUTPUT: Yellow and clear. [...] patient's uterus and extended laterally digitally. The infant was then delivered atraumatically after the bladder blade was removed in the cephalic position. The cord was clamped and cut. Cord blood was obtained. The was handed off to awaiting team. The [...] taken to the Recovery Room in stable condition.[id number] Note DISCHARGE SUMMARY DISCHARGE DATE: 11/13/2021 PRIMARY [...] when pain free and no longer on narcotics.[facility] [id number] Evaluation note * Encounter Date Diagnosis Assessment Notes Treatment Notes Treatment Clinical Notes Jan, Well adult exam (ICD-10 - [...] persistent asthma without complication (ICD-10 - J45.40) [employer] Other Evaluation noteNo InformationNortGrand [facility] [email or web address] Other Evaluation note* Diagnosis Second trimester ([facility]) state, incidental 14 weeks gestation of ([facility]) [facility]* Diagnosis Well woman exam with routine gynecological exam Routine gynecological examination Screening, , for anatomic survey ([facility]) Encounter for anatomic survey Exposure to STD Need for maternal serum alpha-protein (MSAFP) screening ([facility]) Second trimester ([facility]) state, incidental 18 weeks gestation of ([facility]) documented [facility] this encounter [facility] Narrative - Reported* Type Description Date Medical History stomach issues Medical History Asthma Medical History low iron Surgical History stomach surgery Surgical History C section Hospitalization History childbirths [employer] Other Summary Purpose Family History No Family History Records FoundNo Family History Records FoundNo Family History Records Found Advance Directives No Advanced Directives Records FoundNo Advanced Directives Records FoundNo Advanced Directives Records Found Additional Source Comments INFORMATION SOURCE (unrecogn ized section and content) DATE CREATED AUTHOR 03/20/2018 [facility] DATE CREATED AUTHOR AUTHOR'S ORGANIZ ATION 03/16/2022 [facility] DATE CREATED AUTHOR AUTHOR'S ORGANIZ ATION 08/05/2024 [facility] EPIC REASON FOR VISIT (unrecogniz ed section and content) Reason Comments Routine Visit left wrist sore and is painful when pressure is applied1 year Follow up [...] BE BASED ON THE PRIMARY CLINICAL RECORDS. [employer] provides no warranty or guarantee of the accuracy or completeness of information in this document.
[2024-09-02 13:07] LABS: Age Gdln ACOG Testing Note (.); IGP, Aptima HPV, rfx 16/18,45 Note (.)
== END 2024-08-29 20:08 | disposition home or self-care (01) ==
LOC: LAB 20:07
PROVIDERS: Visit Provider Physician Assistant
DX: Z01.419 Encounter for gynecological examination (general) (routine) without abnormal findings (principal)
CPT/HCPCS: 87624; 88175

== ENCOUNTER 2024-10-08 13:07 | Outpatient (OUT) | payer BC, OTHER, SELFPAY ==
--- OUTSIDE RECORDS SUMMARY | 2023-12-20 04:45 | XMS_ITS ---
Author Organization [facility] vices Address [address] [facility] [id number] Care Team Providers Care Assistant Import Manager Name Role Phone Alma Jolley Unavailable [phone] REASON FOR VISIT Recall (A) 33 Social History Sex Assigned At : Social History Observation Description Sex Assigned At Female Encounters Encounter Location Date Provider Diagnosis Dental Main [address] [place], [place] [phone] 12/20/2023 Alma Jolley Plan Of Treatment No Information Progress Notes * MIKEArti JOHNSON NDOB:[birth year] (34 yo F)Acc No.[id number]:12/20/2023 Patient: Arti ALFREDO Provider: Roxana Jolley DDS :1990 A ge:33 Y S ex:Female Date:12/20/2023 Address:[address] [place], [place] [phone] Subjective: * Chief Complaints: * 1 . Recall (A) 33. * Medical History: Objective: * Vitals: Assessment: Plan: * Treatment: * Billing Information: * Visit Code: * Procedure Codes: * Electronic signature of Tena Jolley DDS on 10/08/2024 at 01:10 PM EDT Sign off status: Pending * Provider: Roxana Jolley DDS Date: 02/18/2023 Generated for Printi ng/Faxing/eTransmitting on: 0 10/08/2024 01:10 PM EDT
--- OUTSIDE RECORDS SUMMARY | 2024-09-26 14:50 | XMS_ITS | Encounter Summary ---
Author Organization [facility] Address [address] [place] [address] Care Team Providers Care Database Management System Specialist Name Role Phone Unavailable Primary Care Provider Unavailabl e Reason for Visit * Reason Comments Routine Visit Encounter Details Date Type Department Care Team (Late st Contact Info) Description 09/26/2024 2:50 PM EDT Routine [facility] [address] [place] [phone] Jose Barreto DO [address] Magdi Ag, [facility] Diabetes mellitus screening; Second trimester ([facility]); 22 weeks gestation of ([facility]) Social History Tobacco Use Types Packs/Day Years Used Date Smoking Tobacco: Never Assessed Estimated Date of Delivery Comme nts Yes 01/25/2025 Based on Ultraso und Sex and Gender Information Value Date Recorded Sex Assigned at Not on file Legal Sex Female 6:54 PM EDT Gender Identity Not on file Sexual Orientation Not on file documented as of this encounter Last Filed Vital Signs Vital Sign Reading Time Taken Comments Blood Pressure 118/70 09/26/2024 3:04 PM EDT Pulse - - Temperature - - Respiratory Rate - - Oxygen Saturation - - Inhaled Oxygen Concentration - - Weight 84.4 kg (186 lb) 09/26/2024 3:04 PM EDT Height - - Body Mass Index 28.28 07/14/2023 11:01 AM EDT documented in this encounter Progress Notes * Maribell Khan, FLARE BREAKER - 09/26/2024 2:50 PM EDT Reason for Appointment: Patient ID: Arti Mckeon is a 34 y.o. female who presents for Routine Visit [...] Constitutional: Appearance: Normal appearance. She is well-developed. Cardiovascular: Rate and Rhythm: Normal rate and regular rhythm. Pulmonary: Effort: Pulmonary effort is normal. Breath sounds: Normal breath sounds. Abdominal: General: Bowel sounds are normal. There is no distension. Palpations: Abdomen is soft. Tenderness: There is no abdominal tenderness. There is no guarding or rebound. Musculoskeletal: General: No swelling. Normal range of motion. Right lower leg: No edema. Left lower leg: No edema. Neurological: Mental Status: She is alert and oriented to person, place, and time. Skin: General: Skin is warm and dry. Psychiatric: Mood and Affect: Mood normal. Behavior: Behavior normal. Vitals and nursing note reviewed. Exam conducted with a splitter machine present. Vitals: Estimated body mass index is 28.28 kg/m?? as calculated from the following: Height as of 07/14/23: 5' 8 . Weight as of this encounter: 186 lb. BP: 118/70 Patient's last menstrual period was 05/08/2024. ASSESSMENT & PLAN ICD-10-CM 1. Diabetes mellitus screening Z13.1 CBC Glucose tolerance, 1 hour CBC Glucose tolerance, 1 hour 2. Second trimester ([facility]) Z34.92 POCT urinalysis dipstick manually resulted 3. 22 weeks gestation of ([facility]) Z3A.22 Patient presents today for a routine obstetrics appointment. Patient is currently 22w5d with a Estimated Date of Delivery: 01/25/25. Pt given glucola and cbc orders to have obtained. Pt to return in 4 weeks Documented by Maribell Khan LPN on behalf of: Jose Barreto DO documented in this encounter Plan of Treatment Upcoming Encounters Date Type Department Care Team (Late st Contact Info) Description 10/24/2024 3:00 PM EDT Routine [facility] [address] [place] [phone] Cindy Silva PA [address] [place] [phone] Scheduled Orders Name Type Priority Associated Diagnoses Orde r Schedule CBC Lab Routine Diabetes mellitus screening Expected: 09/26/2024 (Approximate), Expires: 09/26/2025 Glucose tolerance, 1 hour Lab Routine Diabetes mellitus screening Expected: 09/26/2024 (Approximate), Expires: 09/26/2025 documented as of this encounter Procedures Procedure Name Priority Date/Time Associated Diagnosis Comments POCT URINALYSIS DIPSTICK Routine 09/26/2024 3:04 PM EDT Second trimester ([facility]) documented in this encounter Results * POCT urinalysis dipstick manually resulted (09/26/2024 3:04 PM EDT) Color, UA Yellow Clarity, UA Clear Glucose, UA Negative Negative - 2000(110) ++++ mg/dL Bilirubin, UA Negative Negative - 4(70) +++ mg/dL Ketones, UA Negative Negative - 160(16) ++++ mg/dL Spec Grav, UA 1.030 1 - 1.03 Blood, UA Negative Negative - 50 Guy/mcL pH, UA 6.0 5 - 9 Protein, UA Negative Negative - 2000(20) ++++ mg/dL Urobilinogen, UA 1.0 0.2 - 12 mg/dL Leukocytes, UA Negative Negative - 500+++ Corona/mcL Nitrite, UA Negative Negative - Positive Urine 09/26/2024 3:04 PM EDT Jose Barreto DO POINT OF CARE TEST ENTER/EDIT OR DERABLES Final Result documented in this encounter Visit Diagnoses Diagnosis Diabetes mellitus screening Screening for diabetes mellitus Second trimester ([facility]) state, incidental 22 weeks gestation of ([facility]) documented in this encounter
--- OUTSIDE RECORDS SUMMARY | 2024-10-08 13:10 | XMS_ITS | Encounter Summary ---
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 [phone] Cindy Silva PA [address] [place], [facility] documented as of this encounter Visit Diagnoses Not on filedocumented in this encounter
--- OUTSIDE RECORDS SUMMARY | 2024-10-08 13:10 | XMS_ITS | Clinical Summary ---
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 Name Role Phone Unavailable Primary Care Provider Unavailabl e Allergies Active Allergy Reactions Criticality Noted Date Comments Penicillin G 08/29/2024 Other Reaction(s): Unknown Penicillins Rash Low 03/11/2023 Sulfa Antibiotics Hives 03/11/2023 Other Reaction(s): Unknown Medications albuterol HFA (ProAir HFA) 90 mcg/act [...] Encounters Date Type Department Care Team Description 09/26/2024 2:50 PM EDT Routine [facility] [address] [place] [address] Jose Barreto DO Diabetes mellitus screening; Second trimester ([facility]); 22 weeks gestation of ([facility]) 09/26/2024 Bamboo flowsheet [facility] [address] [place] [address] Jose Barreto, DO 09/26/2024 Travel 09/13/2024 2:30 PM EDT Ancillary Procedure [facility] [address] [facility] [place] [phone] Screening, , for anatomic survey ([facility]) 09/13/2024 Travel 09/05/2024 Orders Only [facility] [place] [facility] [address] [facility] [place] [address] Arminda Bey, GOVERNMENT GAUGER 08/31/2024 Telephone [facility] [address] [facility] [place] [address] Isi Mejia, GOVERNMENT GAUGER 08/29/2024 3:30 PM EDT Routine [facility] [address] [place] [address] Cindy Silva PA Well woman exam with routine gynecological exam; Screening, , for anatomic survey ([facility]); Exposure to STD; Need for maternal serum alpha-protein (MSAFP) screening ([facility]); Second trimester ([facility]); 18 weeks gestation of ([facility]) 08/29/2024 Clinisync Result Encounter [facility] External Department Unsolicited Cindy Silva PA 08/29/2024 External Result Encounter [facility] External Department Unsolicited Cindy Silva PA 08/29/2024 Bamboo flowsheet [facility] [address] [place] [address] Cindy Silva PA 08/03/2024 Abstract [facility] [place] [facility] [address] [place] [address] Jose Barreto DO 08/02/2024 9:20 AM EDT Routine [facility] [address] [place] [address] Jose Barreto, DO Second trimester ([facility]); 14 weeks gestation of ([facility]) 08/02/2024 Bamboo flowsheet [facility] [address] [facility] [place] [phone] Jose Barreto, 08/02/2024 Travel 07/30/2024 Abstract [facility] [address] [place] [phone] Jose Barreto, 07/24/2024 Clinisync Result Encounter [facility] External Department Unsolicited Jose Barreto, from Last 3 Months Family History Medical [...] (186 lb) 09/26/2024 3:04 PM EDT Height 172.7 cm (5' 8 ) 07/14/2023 11:01 AM EDT Body Mass Index 28.28 07/14/2023 11:01 AM EDT Plan of Treatment Upcoming Encounters Date Type Department Care Team (Late st Contact Info) Description 10/24/2024 3:00 PM EDT Routine [facility] [address] [place] [address] Cindy iSlva PA [address] [facility] [address] [place], [place] [id number] Health Maintenance Due Date Last Done Comments HPV/Cotest 2020 Influenza Vaccine (#1) 2024 11/28/2019 Cervical Cancer Screening 08/30/2027 Pap Smear 08/30/2027 08/29/2024, 07/13/2023, 02/15 Procedures Procedure Name Priority Date/Time Associated Diagnosis Comments POCT URINALYSIS DIPSTICK Routine 09/26/2024 3:04 PM EDT Second trimester ([facility]) US OB 14+ WEEKS ANATOMY SCAN Routine 09/13/2024 3:50 PM EDT Screening, , for anatomic survey ([facility]) CULTURE, URINE, ROUTINE Routine 08/29/2024 4:48 PM EDT Missed menses RECURRENT VAGINITIS (HTRX) Routine 08/29/2024 4:20 PM EDT POCT URINALYSIS DIPSTICK Routine 08/29/2024 3:44 PM EDT 18 weeks gestation of ([facility]) IGP,APTIMA HPV,AGE GDLN Routine 08/29/2024 3:26 PM EDT PAP SMEAR Routine 08/29/2024 12:00 AM EDT POCT URINALYSIS DIPSTICK Routine 08/02/2024 9:53 AM EDT Second trimester ([facility]) HBSAG SCREEN Routine 07/24/2024 3:40 PM EDT RAPID PLASMA REAGIN, QUANT Routine 07/24/2024 3:40 PM EDT HCV ANTIBODY RFX TO QUANT PCR Routine 07/24/2024 3:40 PM EDT ALL RUBELLA IGG AB Routine 07/24/2024 3: 40 PM EDT HIV AB/P24 AG WITH REFLEX Routine 07/24/2024 3:40 PM EDT ALL TYPE AND SCREEN Routine 07/24/2024 3 :40 PM EDT MLR HEMOGLOBIN A1C Routine 07/24/2024 3: 40 PM EDT ALL CBC WITH AUTO DIFF Routine 07/24/2024 3:40 PM EDT BOX TEST Routine 07/24/2024 3:40 PM EDT [facility] DRUG SCREEN RAPID (URINE) Routine 07/24/2024 3:31 PM EDT from Last 3 Months Results * POCT urinalysis dipstick manually resulted (09/26/2024 3:04 PM EDT) Only the most recent of3 resultswithin the time period is included. Color, UA Yellow Clarity, UA Clear Glucose, [...] - Positive Urine 09/26/2024 3:04 PM EDT us Jose Barreto DO POINT OF CARE TEST ENTER/EDIT OR DERABLES Final Result * US OB 14+ weeks anatomy scan (09/13/2024 3:50 PM EDT) Anatomical Region Laterality Modality Body Ultrasound 09/14/2024 8:27 AM EDT Narrative 09/14/2024 8:27 AM EDT EXAM: US OB 14+ WEEKS ANATOMY SCAN HISTORY: anatomy. COMPARISON: Ob ultrasound 07/05/2024. TECHNIQUE: Two-dimensional transabdominal grayscale ultrasound imaging of the pelvis was performed. FINDINGS: Gestation: Single Presentation: Cephalic Cardiac Activity: 153 beats per minute Placental Location: Anterior with no sonographic abnormalities identified. Distance from Placental Tip to Cervix: 4.9 cm Cervical Length: 4.5 cm Amniotic Fluid: Appears adequate MEASUREMENTS: BPD: 4.6 cm EGA: 19 weeks 6 days HC: 16.9 cm EGA: 19 weeks 4 days AC: 15.9 cm EGA: 21 weeks 0 days FL: 3.5 cm EGA: 21 weeks 0 days HC/AC Ratio: 1.07 The gestational age by today's ultrasound is 20 weeks 3 days (+/- 10 days gestation). Estimated Weight: 380 grams, +/- 57 grams ( 0 lb 13 oz). Weight Percentile for gestational age: 43 % ANATOMY C-Spine: Unremarkable T-Spine: Unremarkable L-Spine: Unremarkable Sacrum: Unremarkable Four Chamber Heart: Unremarkable LVOT: Unremarkable RVOT: Unremarkable Stomach: Unremarkable Kidneys: Unremarkable Bladder: Unremarkable Diaphragm: Unremarkable Cord insertion: Unremarkable Cord vessels: Three Lateral Ventricles: Unremarkable Cerebellum: Unremarkable Cisterna Magna: Unremarkable Posterior Fossa: Unremarkable Right Femur: Unremarkable Left Femur: Unremarkable Right Tib/Fib: Unremarkable Left Tib/Fib: Unremarkable Right Rad/Ulnar: Unremarkable Left Rad/Ulnar: Unremarkable Right Humerus: Unremarkable Left Humerus: Unremarkable Nose/Lips: Unremarkable Profile: Unremarkable Orbits: Unremarkable IMPRESSION: 1. Single, live intrauterine gestation 20 weeks, 6 days by LMP. Today's ultrasound measurements correlate with a gestational age of 20 weeks 3 days. Estimated weight is 380 grams, +/- 57 grams ( 0 lb 13 oz) which correlates to 43 %. BRO by today's ultrasound is 01/28/2025. 2. Unremarkable ultrasound of the anatomy. Interpreted by: Electronically signed by CHRIS GUO II, MD, PHD at 14-Sep-2024 08:26:06 AM [facility] Procedure Note Chris Guo MD - 09/14/2024 EXAM: US OB 14+ WEEKS ANATOMY SCAN HISTORY: anatomy. COMPARISON: Ob ultrasound 07/05/2024. TECHNIQUE: Two-dimensional transabdominal grayscale ultrasound imaging ofthe pelvis was performed. FINDINGS: Gestation: Single Presentation: Cephalic Cardiac Activity: 153 beats per minute Placental Location: Anterior with no sonographic abnormalitiesidentified. Distance from Placental Tip to Cervix: 4.9 cm Cervical Length: 4.5 cm Amniotic Fluid: Appears adequate MEASUREMENTS: BPD: 4.6 cm EGA: 19 weeks 6 days HC: 16.9 cm EGA: 19 weeks 4 days AC: 15.9 cm EGA: 21 weeks 0 days FL: 3.5 cm EGA: 21 weeks 0 days HC/AC Ratio: 1.07 The gestational age by today's ultrasound is 20 weeks 3 days (+/- 10 daysgestation). Estimated Weight: 380 grams, +/- 57 grams ( 0 lb 13 oz). Weight Percentile for gestational age: 43 % ANATOMY C-Spine: Unremarkable T-Spine: Unremarkable L-Spine: Unremarkable Sacrum: Unremarkable Four Chamber Heart: Unremarkable LVOT: Unremarkable RVOT: Unremarkable Stomach: Unremarkable Kidneys: Unremarkable Bladder: Unremarkable Diaphragm: Unremarkable Cord insertion: Unremarkable Cord vessels: Three Lateral Ventricles: Unremarkable Cerebellum: Unremarkable Cisterna Magna: Unremarkable Posterior Fossa: Unremarkable Right Femur: Unremarkable Left Femur: Unremarkable Right Tib/Fib: Unremarkable Left Tib/Fib: Unremarkable Right Rad/Ulnar: Unremarkable Left Rad/Ulnar: Unremarkable Right Humerus: Unremarkable Left Humerus: Unremarkable Nose/Lips: Unremarkable Profile: Unremarkable Orbits: Unremarkable IMPRESSION: 1. Single, live intrauterine gestation 20 weeks, 6 days by LMP. Today'sultrasound measurements correlate with a gestational age of 20 weeks 3days. Estimated weight is 380 grams, +/- 57 grams ( 0 lb 13 oz)which correlates to 43 %. BRO by today's ultrasound is 01/28/2025. 2. Unremarkable ultrasound of the anatomy. Interpreted by: Electronically signed by CHRIS GUO II, MD, PHD [id number] 08:26:06 AM [facility] us Cindy ZHU IMG OB US PROCEDURES Final Resul t * Urine culture (08/29/2024 4:48 PM EDT) Urine Urine specimen obtained by clean catch procedure / Unknown us Jose Barreto DO LAB MICROBIOLOGY - GENERAL ORDER CLARITZA Final Result EXTERNAL LAB * (ABNORMAL) RECURRENT VAGINITIS (HTRX) (08/29/2024 4:20 PM EDT) ATOPOBIUM VAGINAE 0 19.961 - 24.689 ppm 08/31/2024 7:22 AM EDT [facility] ATOPOBIUM VAGINAE Not Detected 19.961 - 24.689 ppm 08/31/2024 7:22 AM EDT [facility] BVAB 2,3 (BACTERIAL VAGINOSIS ASSOCIATED BACTERIA 2, 3); MOBILUNCUS SPP 27.253(A) 19.961 - 24.689 ppm 08/31/2024 7:22 AM EDT [facility] BVAB 2,3 (BACTERIAL VAGINOSIS ASSOCIATED BACTERIA 2, 3); MOBILUNCUS SPP Detected(A) 19.961 - 24.689 ppm 08/31/2024 7:22 AM EDT [facility] AKASH ALBICANS, PARAPSILOSIS, TROPICALIS 0 23.000 - 30.347 ppm 08/31/2024 7:22 AM EDT [facility] AKASH ALBICANS, PARAPSILOSIS, TROPICALIS Not Detected 23.000 - 30.347 ppm 08/31/2024 7:22 AM EDT [facility] AKASH GLABRATA 0 23.000 - 31.618 ppm 08/31/2024 7:22 AM EDT [facility] AKASH GLABRATA Not Detected 23.000 - 31.618 ppm 08/31/2024 7:22 AM EDT [facility] AKASH KRUSEI 0 23.000 - 30.873 ppm 08/31/2024 7:22 AM EDT [facility] AKASH KRUSEI Not Detected 23.000 - 30.873 ppm 08/31/2024 7:22 AM EDT [facility] CHLAMYDIA TRACHOMATIS 0 23.000 - 31.586 ppm 08/31/2024 7:22 AM EDT [facility] CHLAMYDIA TRACHOMATIS Not Detected 23.000 - 31.586 ppm 08/31/2024 7:22 AM EDT [facility] GARDNERELLA VAGINALIS 30.264(A) 19.961 - 24.689 ppm 08/31/2024 7:22 AM EDT [facility] GARDNERELLA VAGINALIS Detected(A) 19.961 - 24.689 ppm 08/31/2024 7:22 AM EDT [facility] HOLGERRA (TYPES 1, 2) 0 19.961 - 24.689 ppm 08/31/2024 7:22 AM EDT [facility] HOLGERRA (TYPES 1, 2) Not Detected 19.961 - 24.689 ppm 08/31/2024 7:22 AM EDT [facility] NEISSERIA GONORRHOEAE 0 23.000 - 32.587 ppm 08/31/2024 7:22 AM EDT [facility] NEISSERIA GONORRHOEAE Not Detected 23.000 - 32.587 ppm 08/31/2024 7:22 AM EDT [facility] TRICHOMONAS VAGINALIS 0 23.000 - 31.995 ppm 08/31/2024 7:22 AM EDT [facility] TRICHOMONAS VAGINALIS Not Detected 23.000 - 31.995 ppm 08/31/2024 7:22 AM EDT [facility] MYCOPLASMA GENITALIUM 0 19.961 - 24.689 ppm 08/31/2024 7:22 AM EDT [facility] MYCOPLASMA GENITALIUM Not Detected 19.961 - 24.689 ppm 08/31/2024 7:22 AM EDT [facility] TET B, TET M 27.391(A) 23.000 - 27.500 ppm 08/31/2024 7:22 AM EDT [facility] TET B, TET M Detected(A) 23.000 - 27.500 ppm 08/31/2024 7:22 AM EDT [facility] Tissue 08/29/2024 4:20 PM EDT 08/31/2024 3:11 AM EDT us Cindy ZHU LAB BLOOD ORDERABLES Final Resul t [facility] [address] [address] * IGP,APTIMA HPV,AGE GDLN (08/29/2024 3:26 PM EDT) Pathologist [facility] Note . [facility] Comment: TESTS RESULT FLAG UNITS REF RANGE LAB Clinician Provided Cytology Information Source.............Endocervix No. of containers..01 ThinPrep Vial Imani GARRETT Jenny... FLAG LEGEND: L-Low Normal,H-High Normal,LL-Alert Low,HH-Alert High <-Panic Low,>-Panic High,A-Abnormal,AA-Critical Abnormal Performed at: 01 =G [address] [address] Isabelle Quiros MD, IGP, APTIMA HPV, RFX 16/18,45 Note . [facility] Comment: TESTS RESULT FLAG UNITS REF RANGE LAB DIAGNOSIS: 02 NEGATIVE FOR INTRAEPITHELIAL LESION OR MALIGNANCY. Specimen adequacy: 02 Satisfactory for evaluation. No endocervical component is identified. Performed by: 02 Mya Carrasquillo, Private Mortgage Banker Safe (ASCP) . 02 Note: Note 02 The Pap smear is a screening test designed to aid in the detection of premalignant and malignant conditions of the uterine cervix. It is not a diagnostic procedure and should not be used as the sole means of detecting cervical cancer. Both false-positive and false-negative reports do occur. Test Methodology: Note 02 This liquid based ThinPrep(R) pap test was screened with the use of an image guided system. HPV Genotype Reflex Note 02 Criteria not met, HPV Genotype not performed. FLAG LEGEND: L-Low Normal,H-High Normal,LL-Alert Low,HH-Alert High <-Panic Low,>-Panic High,A-Abnormal,AA-Critical Abnormal Performed at: [address] [address] Isabelle Quiros MD, HPV APTIMA Negative Negative [facility] Comment: This nucleic acid amplification test detects fourteen high- risk HPV types (16,18,31,33,35,39,45,51,52,56,58,59,66,68) without differentiation. Performed at: =[address] [id number] Wood Caulker: Isabelle Quiros MD, Phone: [phone] Performed at: [address] [id number] [place]ker: Isabelle Quiros MD, Phone: [phone] 08/29/2024 3:26 PM EDT 08/29/2024 8:34 PM EDT Narrative CLINISYNC - 09/02/2024 1:07 PM EDT SPATULA-ALONE ENDOCERVIX us Cindy Silva PA LAB BLOOD ORDERABLES Final Resul t Performing Organization Address City/[facility]/ZIP Co de Phone Number [facility] * Pap Smear (08/29/2024 12:00 AM EDT) Swab Cervical swab / Unknown Mary Lou Calzada Bcp Ob LAB CYTOLOGY ORDERABLES Final Result EXTERNAL LAB * BOX TEST (07/24/2024 3:40 PM EDT) [facility] BOX TEST SENT OUT YES [facility] BOX1 [facility] BOX2 07/24/24 [facility] 07/24/2024 3:40 PM EDT 07/24/2024 3:45 PM EDT Narrative CLINISYNC - 07/24/2024 3:56 PM EDT UNITY BOX Jose Mary Lou DO LAB BLOOD ORDERABLES Final Resul t Performing Organization Address [facility] Co de Phone Number [facility] * HBSAG SCREEN (07/24/2024 3:40 PM EDT) [facility] HBSAG SCREEN Negative Negative [facility] Comment: Performed at: [facility] Lab[address] [id number] [place]ker: Torres Ramírez PhD, Phone: [phone] 07/24/2024 3:40 PM EDT 07/24/2024 3:45 PM EDT Narrative CLINISYNC - 07/26/2024 12:12 PM EDT us Jose Mary Lou DO LAB BLOOD ORDERABLES Final Resul t Performing Organization Address [facility] Co de Phone Number [facility] * RAPID PLASMA REAGIN, QUANT (07/24/2024 3:40 PM EDT) Pathologist [facility] RAPID PLASMA REAGIN, QUANT Non Reactive NonRea<1: 1 titer [facility] Comment: Please Note: This test does not meet current guidelines for screening and diagnosis of syphilis. This test is intended for following treatment response in patients being treated for syphilis infection. To screen for syphilis infection, a reflex cascade that includes both RPR and a treponema-specific assay should be utilized, such as Treponema pallidum (Syphilis) Screening [place] (333619) or Rapid Plasma Reagin (RPR) Test With Reflex to Quantitative RPR and Confirmatory Treponema pallidum Antibodies (349432). Performed at: [address] [id number] [place]ker: Torres Ramírez PhD, Phone: [phone] 07/24/2024 3:40 PM EDT 07/24/2024 3:45 PM EDT Narrative CLINISYTN - 07/26/2024 12:12 PM EDT Jose Mary Lou LAB BLOOD ORDERABLES Final Resul t Performing Organization Address [facility] de Phone Number [facility] * HIV AB/P24 AG WITH REFLEX (07/24/2024 3:40 PM EDT) HIV AB/P24 AG SCREEN Non Reactive Non Reactive [facility] Comment: HIV-1/HIV-2 antibodies and HIV-1 p24 antigen were NOT detected. There is no laboratory evidence of HIV infection. HIV Negative Performed at: [address] [id number] [place]ker: Torres Ramírez PhD, Phone: [phone] 07/24/2024 3:40 PM EDT 07/24/2024 3:45 PM EDT Narrative CLINISYNC - 07/26/2024 5:07 AM EDT Jose Mary Lou DO LAB BLOOD ORDERABLES Final Resul t Performing Organization Address City/[facility] Co de Phone Number [facility] * HCV ANTIBODY RFX TO QUANT PCR (07/24/2024 3:40 PM EDT) HCV AB Non Reactive Non Reactive [facility] INTERPRETATION: Comment . TB Comment: Not infected with HCV unless early or acute infection is suspected (which may be delayed in an immunocompromised individual), or other evidence exists to indicate HCV infection. Performed at: - [address] [id number] [place] Ca[place]ker: Torres Ramírez PhD, Phone: [phone] 07/24/2024 3:40 PM EDT 07/24/2024 3:45 PM EDT Narrative CLINISYNC - 07/26/2024 7:09 AM EDT Jose Mary Lou DO LAB BLOOD ORDERABLES Final Resul t [facility]TN TB * MLR HEMOGLOBIN A1C (07/24/2024 3:40 PM EDT) [facility] GLYCOHEMOGLOBIN A1C 5.3 4.5 - 6.2 % [facility] Comment: ADA RECOMMENDED LIMIT 4.0 - 6.0 ADA THERAPEUTIC TARGET < 7.0 ACTION SUGGESTED > 7.0 ESTIMATED AVERAGE GLUCOSE 105 mg/dL TB 07/24/2024 3:40 PM EDT 07/24/2024 3:45 PM EDT Narrative CLINISYNC - 07/24/2024 4:15 PM EDT Jose Mary Lou DO CLINISYNC Final Result Performing Organization Address [facility]/ZIP Co de Phone Number [facility]YTN TB * ALL TYPE AND SCREEN (07/24/2024 3:40 PM EDT) [facility] BLOOD TYPE A Positive [facility] ANTIBODY SCREEN NEGATIVE TB 07/24/2024 3:40 PM EDT 07/24/2024 3:45 PM EDT Narrative CLINISYNC - 07/24/2024 4:43 PM EDT [facility] , Jose Mary Lou DO CLINISYNC Final Result Performing Organization Address [facility]/ZIP Co de Phone Number [facility] TB * ALL RUBELLA IGG AB (07/24/2024 3:40 PM EDT) [facility] RUBELLA ANTIBODIES, IGG 1.22 Immune >0.99 index [facility] Comment: Non-immune <0.90 Equivocal 0.90 - 0.99 Immune >0.99 Performed at: [facility] [address] [id number] [place]ker: Torres Ramírez PhD, Phone: [phone] 07/24/2024 3:40 PM EDT 07/24/2024 3:45 PM EDT Narrative CLINISYNC - 07/26/2024 7:09 AM EDT us Jose Mary Lou DO CLINISYNC Final Result [facility] * (ABNORMAL) ALL CBC WITH AUTO DIFF (07/24/2024 3:40 PM EDT) [facility] TB WBC 10.7 4.0 - 11.0 10 3/uL [facility] TB RBC 4.06(L) 4.20 - 5.40 10 6/uL [facility] TB HGB 12.6 12.0 - 16.0 g/dL TB TB HCT 36.3 36.0 - 48.0 % [facility] TB MCV 89.4 81.0 - 99.0 fL TB TB MCH 31.0 26.7 - 34.0 pg TB[facility] TB MCHC 34.7 29.9 - 35.2 g/dL TB TB RDW 12.4 11.0 - 15.0 % [facility] TB PLT 321 150 - 450 10 3/uL TB TB MPV 9.5 9.5 - 13.5 fL [facility] NEUTROPHILS PERCENT AUTO 72.9 43.0 - 75.0 % [facility] LYMPHOCYTES PERCENT AUTO 17.4(L) 20.5 - 60.0 % [facility] MONOCYTES PERCENT AUTO 6.7 1.7 - 12.0 % [facility] TBH EO % 2.4 0.9 - 7.0 % [facility] BASOPHILS PERCENT AUTO 0.4 0.2 - 2.0 % [facility] IMMATURE GRANULOCYTES PCT AUTO 0.2 0.0 - 0.5 % [facility] NEUTROPHILS ABSOLUTE AUTO 7.8(H) 1.4 - 6.5 10 3/uL [facility] LYMPHOCYTES ABSOLUTE AUTO 1.9 1.2 - 3.8 10 3/uL [facility] MONOCYTES ABSOLUTE AUTO 0.7 0.3 - 0.8 10 3/uL [facility] TBH EO # 0.3 0.0 - 0.7 10 3/uL [facility] BASOPHILS ABSOLUTE AUTO 0.0 0.0 - 0.1 10 3/uL [facility] IMMATURE GRANULOCYTES ABS AUTO 0.02 0.00 - 0.03 10 3/uL [facility] 07/24/2024 3:40 PM EDT 07/24/2024 3:45 PM EDT Narrative CLINISYNC - 07/24/2024 3:57 PM EDT Jose Mary Lou DO CLINISYNC Final Result [facility]NC TB * [facility] DRUG SCREEN RAPID (URINE) (07/24/2024 3:31 PM EDT) Pathologist [facility] CANNABINOID SCREEN URINE NEGATIVE NEGATIVE TBH PHENCYCLIDINE SCREEN URINE NEGATIVE NEGATIVE TBH COCAINE SCREEN URINE NEGATIVE NEGATIVE TBH METHAMPHETAMINES SCREEN URINE NEGATIVE NEGATIVE TBH OPIATE SCREEN URINE NEGATIVE NEGATIVE TBH AMPHETAMINE SCREEN URINE NEGATIVE NEGATIVE TBH BENZODIAZEPINES SCREEN URINE NEGATIVE NEGATIVE TBH TRICYCLIC ANTIDEPRESSANT URINE NEGATIVE NEGATIVE TBH METHADONE SCREEN URINE NEGATIVE NEGATIVE TBH BARBITURATES SCREEN URINE NEGATIVE NEGATIVE TBH OXYCODONE SCREEN URINE NEGATIVE NEGATIVE TBH BUPRENORPHINE SCREEN URINE NEGATIVE NEGATIVE TBH Comment: DRUG CLASS TEST SYSTEM CUT-OFF CONCENTRATIONS ARE FOLLOWS: AMP (Amphetamine): 500 ng/mL BAR (Barbiturates): 200 ng/mL BZO (Benzodiazepines): 150 ng/mL BUP (Buprenorphine): 10 ng/mL MARIO (Cocaine): 150 ng/mL mAMP (Methamphetamine): 500 ng/mL MTD (Methadone): 200 ng/mL OPI (Opiates): 100 ng/mL OXY (Oxycodone): 100 ng/mL PCP (Phencyclidine): 25 ng/mL THC (Cannabinoids): 50 ng/mL TCA (Trycyclic Antidepressants): 300 ng/mL 07/24/2024 3:31 PM EDT 07/24/2024 3:45 PM EDT Narrative CLINISYNC - 07/24/2024 4:07 PM EDT us Jose Barreto DO CLINISYNC Final Result [facility] from Last 3 Months Insurance
--- OUTSIDE RECORDS SUMMARY | 2024-10-08 13:10 | XMS_ITS | Encounter Summary ---
Author Organization [facility] Address [address] [place] [address] Care Team Providers Care Integration Assistant Name Role Phone Unavailable Primary Care Provider Unavailabl e Encounter Details Date Type Department Care Team (Late st Contact Info) Description 09/05/2024 Orders Only MOI CASTAÑEDA [address] [facility] [place] [address] Arminda Bey LPN [address] [facility] Social History Tobacco Use Types Packs/Day Years [...] Description 10/24/2024 3:00 PM EDT Routine MOI CASTAÑEDA [address] [employer] [place] [address] Cindy Silva PA [address] [place], [facility] documented as of this encounter Procedures Procedure Name Priority Date/Time Associated Diagnosis Comments PAP SMEAR Routine 08/29/2024 12:00 AM EDT documented in this encounter Results * Pap Smear (08/29/2024 12:00 AM EDT) Swab Cervical swab / Unknown us Mary Lou Nurse [facility] Ob LAB CYTOLOGY ORDERABLES Final Result EXTERNAL LAB documented in this encounter Visit Diagnoses Not on filedocumented in this encounter
--- OUTSIDE RECORDS SUMMARY | 2024-10-08 13:11 | XMS_ITS | Patient Health Record ---
Author Organization [facility] Address [address] [place], [place] [id number] Care Team Providers Care Coin Machine Service Repairer Name Role Phone Alma Jolley Unavailable [phone] Mya Marte Unavailable [phone] Allergies Allergen (clinical drug ingredient) Drug/Non Drug [...] Problem Status W/U Status Risk Notes Problem Tobacco user (582202796) Cigarette nicotine dependence without complication (F17.210) Active confirmed Problem Body mass index 25-29 - overweight (617208176) BMI 25.0-25.9,adult (Z68.25) Active confirmed Vital Signs Heart Rate 62 /min 02/06/2024 Height-cm 172.72 cm 02/06/2024 Blood pressure diastolic 82 mm Hg 02/06/2024 Weight-kg 74.84 kg 02/06/2024 Height 68 in 02/06/2024 Blood pressure systolic 127 mm Hg 02/06/2024 Weight 165 lbs 02/06/2024 BMI 25.09 kg/m2 02/06/2024 Encounters Encounter Location Date Provider Diagnosis Dental Main [address] [place], [place] [id number] 02/06/2024 Mya Marte Encounter for scre ening [...] Start Date Coverage End Date Jennifer Peng [facility] [address] [place] [address] [id number] Arti Mckeon Self - patient is the insured 3 DMedicaid [employer] after [place] [address] [place], [place] [id number] Arti Mckeon Self - patient is the insured 3
--- OUTSIDE RECORDS SUMMARY | 2024-10-08 13:11 | XMS_ITS | Clinical Summary ---
Author Organization [facility] Address [address] [place] [address] Phone Care Team Providers Care Validation Specialist Name Role Phone Unavailable Primary Care [...]
--- OUTSIDE RECORDS SUMMARY | 2024-10-08 13:11 | XMS_ITS | Encounter Summary ---
Author Organization [facility] Address [address] [place] [address] Care Team Providers Care Senior Service Technician Name Role Phone Unavailable Primary Care Provider Unavailabl e Encounter Details Date Type Department Care Team (Late st Contact Info) Description 07/21/2023 Orders Only MOI CASTAÑEDA [address] [place] [phone] Arminda Bey LPN [address] [facility]11 Social History Tobacco Use Types Packs/Day Years [...] Info) Description 10/24/2024 3:00 PM EDT Routine NOMSumaya CASTAÑEDA [address] [place] [address] Cindy Silva PA [address] [place], [facility]11 documented as of this encounter Procedures Procedure Name Priority Date/Time Associated Diagnosis Comments PAP SMEAR Routine 07/13/2023 12:00 AM EDT documented in this encounter Results * Pap Smear (07/13/2023 12:00 AM EDT) Swab Cervical swab / Unknown Mary Lou Nurse [facility] CYTOLOGY ORDERABLES Final Result EXTERNAL LAB documented in this encounter Visit Diagnoses Not on filedocumented in this encounter
--- OUTSIDE RECORDS SUMMARY | 2024-10-08 13:11 | XMS_ITS | Encounter Summary ---
Author Organization [facility] Address [address] [place] [address] Care Team Providers Care Rope Silica Machine Operator Name Role Phone Unavailable Primary Care Provider Unavailabl e Encounter Details Date Type Department Care Team (Late st Contact Info) Description 08/03/2024 Abstract MOI CASTAÑEDA [address] [place] [phone] Jose Barreto DO [address] [facility] [address] Ag, [facility]11 Social History Tobacco Use Types Packs/Day Years [...] 3:00 PM EDT Routine MOI CASTAÑEDA [address] [place] [address] Cidny Silva PA [address] [place], [facility]11 documented as of this encounter Visit Diagnoses Not on filedocumented in this encounter
--- OUTSIDE RECORDS SUMMARY | 2024-10-08 13:11 | XMS_ITS | Encounter Summary ---
Author Organization [facility] Address [address] [place] [address] Care Team Providers Care Digital Press Operator Name Role Phone Unavailable Primary Care Provider Unavailabl e Encounter Details Date Type Department Care Team (Late st Contact Info) Description 09/26/2024 Bamboo flowsheet MOI CASTAÑEDA [address] [place] [phone] Jose Barreto DO [address] Ag, [facility]11 Social History Tobacco Use Types Packs/Day Years [...] 3:00 PM EDT Routine MOI CASTAÑEDA [address] [place] [address] Cindy Silva PA [address] [place], [place] [id number] documented as of this encounter Visit Diagnoses Not on filedocumented in this encounter
--- OUTSIDE RECORDS SUMMARY | 2024-10-08 13:11 | XMS_ITS | Encounter Summary ---
Author Organization [facility] Address [address] [place] [address] Care Team Providers Care Job Interviewer Name Role Phone Unavailable Primary Care Provider Unavailabl e Encounter Details Date Type Department Care Team (Late st Contact Info) Description 07/30/2024 Abstract MOI CASTAÑEDA [address] [place] [phone] Jose Barreto DO [address] [facility] [address], [facility]11 Social History Tobacco Use Types Packs/Day [...] 3:00 PM EDT Routine MOI CASTAÑEDA [address] [place] [address] Cindy Silva PA [address] [facility] [address] [place], [facility]11 documented as of this encounter Visit Diagnoses Not on filedocumented in this encounter
[2024-10-08 14:33] LABS: Hematocrit 29.6 % (36.0-48.0); Hemoglobin 9.9 g/dL (12.0-16.0); Immature Granulocytes Abs Auto 0.09 10^3/uL (0.00-0.03); Immature Granulocytes Pct Auto 1.0 % (0.0-0.5); Lymphocytes Absolute Auto 1.3 10^3/uL (1.2-3.8); Mean Corpuscular HGB Conc 33.4 g/dL (29.9-35.2); Mean Corpuscular Hemoglobin 31.0 pg (26.7-34.0); Mean Corpuscular Volume 92.8 fL (81.0-99.0); Platelet Count 272 10^3/uL (150-450); Red Blood Count 3.19 10^6/uL (4.20-5.40); White Blood Count 9.5 10^3/uL (4.0-11.0)
[2024-10-08 14:45] LABS: Glucose 1 Hour 122 mg/dL (<130)
== END 2024-10-08 13:08 | disposition home or self-care (01) ==
LOC: LAB 13:08
PROVIDERS: Visit Provider Obstetrics & Gynecology
DX: Z13.1 Encounter for screening for diabetes mellitus (principal)
CPT/HCPCS: 36415; 82950; 85025

== ENCOUNTER 2024-11-05 10:55 | Outpatient (OUT) | payer BC, OTHER, SELFPAY ==
--- OUTSIDE RECORDS SUMMARY | 2024-11-05 11:02 | XMS_ITS | CCD ---
Author Organization [facility] Care Team Providers Care Patient Care Technician Name Role Phone Gosia Garcias Primary Care [...] Consulting Unavailable ROSY, JENN Primary Care Unavailable PATRICIA KELLY Admitting Unavailable PATRICIA KELLY Consulting Unavailable PATRICIA KELLY Attending Unavailable ROSY, JENN Primary Care Unavailable PERLA, PATRICIA Admitting Unavailable PERLA, PATRICIA Consulting Unavailable PERLA, PATRICIA Attending Unavailable PERLA, PATRCIIA Consulting Unavailable PERLA, PATRICIA Attending Unavailable ROSY, JENN Primary Care Unavailable PERLA, PATRICIA Admitting Unavailable MARY LOU, DR INFANTE Attending Unavailable MARY LOU, DR INFANTE Admitting Unavailable MARY LOU, DR INFANTE Consulting Unavailable ROSY JENN Primary Care Unavailable ZIEBER, DR FRANCIA Hyde Consulting Unavailable MARY LOU, DR INFANTE Attending Unavailable MARY LOU, DR INFANTE Admitting Unavailable [facility] [place] [place], DR ASKEW Primary Care Unavailable MARY LOU, DR INFANTE Consulting Unavailable ROSY, JENN Primary Care Unavailable MARY LOU, DR INFANTE Attending Unavailable MARY LOU, DR INFANTE Admitting Unavailable [place], DR KASEY Horvath Consulting Unavailable MARY LOU, DR INFANTE Consulting Unavailable MARY LOU, DR INFANTE Attending Unavailable MARY LOU, DR INFANTE Admitting Unavailable MARY LOU, DR INFANTE Consulting Unavailable ROSY JENN Primary Care Unavailable ZIEBER, DR FRANCIA Hyde Consulting Unavailable Mike Estrada Unavailable Unavailable Primary Care Provider Unavailabl ARELIS Thapa Attending Unavailable CINDY THOMAS Attending Unavailable CINDY THOMAS Referring Unavailable ARELIS BARRETO Attending Unavailable CINDY THOMAS Attending Unavailable Allergies Allergy Classification Reported Allergen(s) Allergy Type Date of Onset Reaction(s) Facility (5 sources) Sulfacetamide / Sulfur Drug Allergy rash [facility] Other (1 source) Penicillins Drug allergy (disorder) 02-23-19 14 [facility] (1 source) Sulfonamides (Antibiotic) Drug allergy (disorder) 02-23-19 14 [facility] (19 sources) Penicillins Drug Intolerance 03-11-19 24 Rash [facility] (19 sources) Sulfonamides (Antibiotic) Drug Intolerance 03-11-19 24 Hives [facility] (14 sources) Penicillin G Drug Allergy 08-30-19 25 [facility] Medications Current Medications Medication Drug Class(es) Dates Sig (Normalized) Sig (Original) [id number] 200 actuat albuterol 0.09 mg/actuat metered dose inhaler (20 sources) beta2-Adrenergic Agonist take 1 puff(s) by [...] Not-Taking/PRN docusate sodium 100 mg oral capsule (20 sources) docusate sodium (Colace) 100 MG capsule [...] DAYS PRN Active Multiple Vitamin (multivitamin) tablet (19 sources) take 1 tablet by mouth once daily Multiple Vitamin (multivitamin) tablet Take 1 tablet by mouth Daily Active polyethylene glycol 3350 92299 mg powder for oral solution (19 sources) Osmotic Laxative polyethylene gl ycol, PEG, 3350 (Miralax) 17 g packet Take by mouth Active polysaccharide iron complex 391 mg oral capsule (6 sources) Start: 10-10-19 End: 11-09-19 25 take 1 capsule by mouth once daily iron polysaccharides (ProFe) 391.3 (180 Fe) MG capsule Indications: Anemia during in second trimester ([facility]) Take 1 capsule (391.3 mg) by mouth Daily 30 capsule 6 10/09/2024 11/08/2024 Active Completed/Discontinued Medications Medication Drug Class(es) Dates [...] asthma, uncomplicated] Onset: 02-11-2021 Resolved: 02-11-2021 Chronic Deficiency and other anemia (2 sources) Anemia; Translations: [Anemia, unspecified] 11-05-2024 Episodic Diabetes mellitus without complication (1 source) Diabetes [...] [OBESITY COMPLICATING CHILDBIRTH] Onset: 11-10-2021 Chronic Other complications of (2 sources) Anemia of ; Translations: [Anemia complicating , second trimester] 10-24-2024 Chronic Other connective tissue disease (1 source) Other enthesopathies, not elsewhere classified Episodic Other nutritional; endocrine; and metabolic disorders (1 source) Obesity, unspecified; Translations: [OBESITY UNSPECIFIED] Onset: 11-10-2021 Chronic Other and delivery including normal (12 sources) Single live ; Translations: [Encounter for supervision of normal , unspecified, first trimester] Onset: 04-01-2021 08-02-2024 Episodic Other screening for suspected conditions (not mental disorders or infectious disease) (19 sources) Encounter for screening for malignant neoplasm [...] [18 weeks gestation of ] 08-29-2024 Episodic Residual codes; unclassified (2 sources) Gestation period, 22 weeks; Translations: [22 weeks gestation of ] 09-26-2024 Episodic Residual codes; unclassified (2 sources) Gestation period, 26 weeks; Translations: [26 weeks gestation of ] 10-24-2024 Episodic Residual codes; unclassified (2 sources) Gestation period, 28 weeks; Translations: [28 weeks gestation of ] 11-05-2024 Episodic Unclassified (1 source) CONTACT W/AND (SUSP) EXPOS COVID-19; Translations: [CONTACT W/AND (SUSP) EXPOS COVID-19] Onset: 11-02-2021 Past or Other Problems Problem Classification Problem Date Documented Date Episodic/Chronic Deficiency and other anemia (1 source) Iron deficiency anemia, unspecified; Translations: [IRON DEFICIENCY ANEMIA UNSPECIFIED] Onset: 11-10-2021 Episodic E Codes: Cut/pierceb (1 source) Contact with other sharp object(s), not elsewhere classified, initial encounter; Translations: [[facility] OT SHRP OB NOT ELSW CLASS INI] Onset: 06-01-2021 Episodic Hemorrhage during ; abruptio placenta; placenta previa (8 sources) Low lying placenta NOS or without hemorrhage, unspecified trimester; Translations: [Complete placenta previa NOS or without hemorrhage, unspecified trimester] Onset: 07-30-2021 Episodic Other aftercare (1 source) Other exterminator helper (current) drug therapy; Translations: [OT PRISON CURRENT DRUG THERAPY] Onset: 11-10-2021 Episodic Other [...] Range Facility Urinalysis macro (dipstick) panel (U)on 11-05-2024 Bilirubin, UA Negative Negative - 4(70) +++ mg/dL [facility] Blood, UA Negative Negative - 50 Guy/mcL [facility] Clarity, UA Clear [facility] Color, UA Yellow [facility] Glucose, UA Negative Negative - 1999(110) ++++ mg/dL [facility] Interpretation and review of laboratory results Normal [facility] Ketones, UA Negative Negative - 160(16) ++++ mg/dL [facility] Leukocytes, UA Negative Negative - 500+++ Corona/mcL [facility] Nitrite, UA Negative Negative - Positive [facility] pH, UA 6.5 5 - 9 [facility] Protein, UA Negative Negative - 1999(20) ++++ mg/dL [facility] Spec Grav, UA 1.015 1 - 1.03 [facility] Urobilinogen, UA 0.2 0.2 - 12 mg/dL [facility] Urinalysis macro (dipstick) panel (U)on 10-24-2024 Bilirubin, UA Negative Negative - 4(70) +++ mg/dL [facility] Blood, UA Negative Negative - 50 Guy/mcL [facility] Clarity, UA Clear [facility] Color, UA Yellow [facility] Glucose, UA Negative Negative - 1999(110) ++++ mg/dL [facility] Interpretation and review of laboratory results Abnormal [facility] Ketones, UA Negative Negative - 160(16) ++++ mg/dL [facility] Leukocytes, UA Negative Negative - 500+++ Corona/mcL [facility] Nitrite, UA Negative Negative - Positive [facility] pH, UA 6 5 - 9 [facility] Protein, UA Positive Negative - 1999(20) ++++ mg/dL [facility] Spec Grav, UA 1.02 1 - 1.03 [facility] Urobilinogen, UA 1.0 0.2 - 12 mg/dL [facility] ALL CBC WITH AUTO DIFFon BASOPHILS ABSOLUTE AUTO 0 [facility] Basophils/100 WBC (Bld) 0.2 % 0.2 - 2.0 % [facility] Eosinophils/100 WBC (Bld) 1.9 % 0.9 - 7.0 % [facility] Erythrocyte distribution width (RBC) [Ratio] 12.6 % 11.0 - 15.0 % [facility] Hematocrit (Bld) [Volume fraction] 29.6 % Low 36.0 - 48.0 % [facility] Hemoglobin (Bld) [Mass/Vol] 9.9 g/dL Low 12.0 - 16.0 g/dL [facility] IMMATURE GRANULOCYTES ABS AUTO 0.09 High [facility] Immature granulocytes/100 WBC (Bld) 1 % High 0.0 - 0.5 % [facility] Interpretation and review of laboratory results Abnormal [facility] LYMPHOCYTES ABSOLUTE AUTO 1.3 [facility] Lymphocytes/100 WBC (Bld) 14 % Low 20.5 - 60.0 % [facility] MCH (RBC) [Entitic mass] 31 pg 26.7 - 34.0 pg [facility] MCHC (RBC) [Mass/Vol] 33.4 g/dL 29.9 - 35.2 g/dL [facility] MCV (RBC) [Entitic vol] 92.8 fL 81.0 - 99.0 fL [facility] MONOCYTES ABSOLUTE AUTO 0.6 [facility] Monocytes/100 WBC (Bld) 6.3 % 1.7 - 12.0 % [facility] NEUTROPHILS ABSOLUTE AUTO 7.3 High [facility] Neutrophils/100 WBC (Bld) 76.6 % High 43.0 - 75.0 % [facility] Platelet mean volume (Bld) [Entitic vol] 9.6 fL 9.5 - 13.5 fL [facility] EO # 0.2 [facility] PLT 272 [facility] RBC 3.19 Low [facility] WBC 9.5 [facility] Urinalysis macro (dipstick) panel (U)on 09-26-2024 Bilirubin, UA Negative Negative - 4(70) +++ mg/dL [facility] Blood, UA Negative Negative - 50 Guy/mcL [facility] Clarity, UA Clear [facility] Color, UA Yellow [facility] Glucose, UA Negative Negative - 2000(110) ++++ mg/dL [facility] Interpretation and review of laboratory results Normal [facility] Ketones, UA Negative Negative - 160(16) ++++ mg/dL [facility] Leukocytes, UA Negative Negative - 500+++ Corona/mcL [facility] Nitrite, UA Negative Negative - Positive [facility] pH, UA 6 5 - 9 [facility] Protein, UA Negative Negative - 1999(20) ++++ mg/dL [facility] Spec Grav, UA 1.03 1 - 1.03 [facility] Urobilinogen, UA 1.0 0.2 - 12 mg/dL [facility] US OB 14+ WEEKS ANATOMY SCAN on 09-13-2024 US OB 14+ WEEKS ANATOMY SCAN EXAM: US OB 14+ WEEKS ANATOMY SCAN [...] anatomy. Interpreted by: Electronically signed by CHRIS VILLAGOMEZ II, MD, PHD at 14-Sep-2024 08:26:06 AM [facility] Normal Not Available Comment on above: Order Comment: US OB ANATOMY SINGLE W US OB CERVICAL LENGTH Estimated Date of Delivery: 01/25/25 Gestational Age as of 08/29/2024: 18w5d IGP,APTIMA HPV,AGE GDLNon AGE GDLN ACOG TESTING Note . [facility] Comment on above: TESTS RESULT FLAG UN ITS REF RANGE LAB Clinician Provided Cytology Information Source.............[employer] No. of containers..01 ThinPrep Vial Age Algo ACOG Jenny... 30-65 FLAG LEGEND: L-Low Normal,H-High Normal,LL-Alert Low,HH-Alert High <-Panic Low,>-Panic High,A-Abnormal,AA-Critical Abnormal Performed at: 01 =G [address] [place] [address] Isabelle Quiros MD, HPV APTIMA Negative Negative [facility] Comment on above: This nucleic acid am plification test detects fourteen high- risk HPV types (16,18,31,33,35,39,45,51,52,56,58,59,66,68) without differentiation. Performed at: =G [facility], [place] [id number] Feature Writer: Isabelle Quiros MD, Phone: [phone] Performed at: [address], [place] [id number] Feature Writer: Isabelle Quiros MD, Phone: [phone] IGP, APTIMA HPV, RFX 16/18,45 Note . [facility] Comment on above: TESTS RESULT FLAG UN ITS REF RANGE LAB DIAGNOSIS: 02 NEGATIVE FOR INTRAEPITHELIAL LESION OR MALIGNANCY. Specimen adequacy: 02 Satisfactory for evaluation. No endocervical component is identified. Performed by: 02 Mya Carrasquillo, Plant Security Guard (ASCP) . 02 Note: Note 02 The [...] High <-Panic Low,>-Panic High,A-Abnormal,AA-Critical Abnormal Performed at: [address] [place] [address], [place] [address] Isabelle Quiros MD, SPATULA-ALONE [facility] RECURRENT VAGINITIS (HTRX)on 08-31-2024 ATOPOBIUM VAGINAE 0 [facility] ATOPOBIUM VAGINAE Not detected [facility] BVAB 2,3 (BACTERIAL VAGINOSIS ASSOCIATED BACTERIA 2, 3); MOBILUNCUS SPP 27.253 Abnormal [facility] BVAB 2,3 (BACTERIAL VAGINOSIS ASSOCIATED BACTERIA 2, 3); MOBILUNCUS SPP Detected Abnormal [facility] ARIELLE ALBICANS, PARAPSILOSIS, TROPICALIS 0 [facility] ARIELLE ALBICANS, PARAPSILOSIS, TROPICALIS Not detected [facility] ARIELLE GLABRATA 0 [facility] ARIELLE GLABRATA Not detected [facility] ARIELLE KRUSEI 0 [facility] ARIELLE KRUSEI Not detected [facility] CHLAMYDIA TRACHOMATIS 0 [facility] CHLAMYDIA TRACHOMATIS Not detected [facility] GARDNERELLA VAGINALIS 30.264 Abnormal [facility] GARDNERELLA VAGINALIS Detected Abnormal [facility] Interpretation and review of laboratory results Abnormal [facility] MEGASPHAERA (TYPES 1, 2) 0 [facility] MEGASPHAERA (TYPES 1, 2) Not detected [facility] MYCOPLASMA GENITALIUM 0 [facility] MYCOPLASMA GENITALIUM Not detected [facility] NEISSERIA GONORRHOEAE 0 [facility] NEISSERIA GONORRHOEAE Not detected [facility] TET B, TET M 27.391 Abnormal [facility] TET B, TET M Detected Abnormal [facility] TRICHOMONAS VAGINALIS 0 [facility] TRICHOMONAS VAGINALIS Not detected [facility] Urinalysis macro (dipstick) panel (U)on 08-29-2024 Bilirubin, UA Negative Negative - 4(70) +++ mg/dL [facility] Blood, UA Negative Negative - 50 Guy/mcL [facility] Clarity, UA Clear [facility] Color, UA Yellow [facility] Glucose, UA Negative Negative - 1999(110) ++++ mg/dL [facility] Interpretation and review of laboratory results Normal [facility] Ketones, UA Negative Negative - 160(16) ++++ mg/dL [facility] Leukocytes, UA Negative Negative - 500+++ Corona/mcL [facility] Nitrite, UA Negative Negative - Positive [facility] pH, UA 7 5 - 9 [facility] Protein, UA Negative Negative - 1999(20) ++++ mg/dL [facility] Spec Grav, UA 1.01 1 - 1.03 [facility] Urobilinogen, UA 0.2 0.2 - 12 mg/dL [facility] Urinalysis macro (dipstick) panel (U)on 08-02-2024 Bilirubin, UA Negative Negative - 4(70) +++ mg/dL [facility] Blood, UA Positive Negative - 50 Guy/mcL [facility] Comment on above: small Clarity, UA Clear [facility] Color, UA Yellow [facility] Glucose, UA Negative Negative - 1999(110) ++++ mg/dL [facility] Interpretation and review of laboratory results Abnormal [facility] Ketones, UA Positive Negative - 160(16) ++++ mg/dL [facility] Comment on above: Trace Leukocytes, UA Negative Negative - 500+++ Corona/mcL [facility] Nitrite, UA Negative Negative - Positive [facility] pH, UA 5.5 5 - 9 [facility] Protein, UA Negative Negative - 2000(20) ++++ mg/dL [facility] Spec Grav, UA 1.03 1 - 1.03 [facility] Urobilinogen, UA 0.2 0.2 - 12 mg/dL [facility] ALL CBC WITH AUTO DIFFon BASOPHILS ABSOLUTE AUTO 0 [facility] Basophils/100 WBC (Bld) 0.4 % 0.2 - 2.0 % [facility] Eosinophils/100 WBC (Bld) 2.4 % 0.9 - 7.0 % [facility] Erythrocyte distribution width (RBC) [Ratio] 12.4 % 11.0 - 15.0 % [facility] Hematocrit (Bld) [Volume fraction] 36.3 % 36.0 - 48.0 % [facility] Hemoglobin (Bld) [Mass/Vol] 12.6 g/dL 12.0 - 16.0 g/dL [facility] IMMATURE GRANULOCYTES ABS AUTO 0.02 [facility] Immature granulocytes/100 WBC (Bld) 0.2 % 0.0 - 0.5 % [facility] Interpretation and review of laboratory results Abnormal [facility] LYMPHOCYTES ABSOLUTE AUTO 1.9 [facility] Lymphocytes/100 WBC (Bld) 17.4 % Low 20.5 - 60.0 % [facility] MCH (RBC) [Entitic mass] 31 pg 26.7 - 34.0 pg [facility] MCHC (RBC) [Mass/Vol] 34.7 g/dL 29.9 - 35.2 g/dL [facility] MCV (RBC) [Entitic vol] 89.4 fL 81.0 - 99.0 fL [facility] MONOCYTES ABSOLUTE AUTO 0.7 [facility] Monocytes/100 WBC (Bld) 6.7 % 1.7 - 12.0 % [facility] NEUTROPHILS ABSOLUTE AUTO 7.8 High [facility] Neutrophils/100 WBC (Bld) 72.9 % 43.0 - 75.0 % [facility] Platelet mean volume (Bld) [Entitic vol] 9.5 fL 9.5 - 13.5 fL [facility] TBH EO # 0.3 [facility] TB PLT 321 [facility] RBC 4.06 Low [facility] WBC 10.7 [facility] BOX TESTon 07-24-2024 BOX TEST SENT OUT YES [facility] BOX1 UNITY [facility] BOX2 07/24/24 [facility] US OB TRANSVAGINALon 025 US OB TRANSVAGINAL [...] II, MD, PHD at 06-Jul-2024 12:18:02 PM [facility] Normal Not Available Comment on above: Order Comment: US OB TRANSVAGINAL No LMP recorded. PAP ACOG PANEL 2: 30 to 65on 03-16-2022 . . Normal [facility] Comment on above: Result Comment: Perf ormed at: WB Performed By: #### H IV12 #### [facility] [address] [address] [address] Nolvia Ruvalcaba Age Gdln ACOG Testing - Normal [facility] Comment on above: Performed By: #### H IV12 #### [facility] [address] [address] [address] Nolvia Ruvalcaba DIAGNOSIS: Comment Normal [facility] Comment on above: Result Comment: NEGA TIVE FOR INTRAEPITHELIAL LESION OR MALIGNANCY. Performed at: WB Performed By: #### H IV12 #### [facility] [address] [address] [address] Nolvia Ruvalcaba HPV Aptima Negative Normal Negative [facility] Comment on above: Result Comment: This nucleic acid amplification test detects fourteen high-risk HPV types (16,18,31,33,35,39,45,51,52,56,58,59,66,68) without differentiation. Performed at: =G Performed By: #### H IV12 #### [facility] [address] [address] [address] Nolvia Ruvalcaba HPV Genotype Reflex Comment Normal [facility] Comment on above: Result Comment: Crit eria not met, HPV Genotype not performed. Performed at: WB Performed By: #### H IV12 #### [facility] [address] [address] [address] Nolvia Ruvalcaba Methodology: Comment Normal [facility] Comment on above: Result Comment: This liquid based ThinPrep(R) pap test was screened with the use of an image guided system. Performed at: WB Performed By: #### H IV12 #### [facility] [address] [address] [address] Nolvia Ruvalcaba Note: Comment Normal [facility] Comment on above: Result Comment: The Pap smear is a screening test designed to aid in the detection of premalignant and malignant conditions of the uterine cervix. It is not a diagnostic procedure and should not be used as the sole means of detecting cervical cancer. Both false-positive and false-negative reports do occur. . Performed at: WB Performed By: #### H IV12 #### [facility] [address] [address] [address] Nolvia Ruvalcaba Performed by: Comment Normal [facility] Comment on above: Result Comment: Angel Sanchez, Ballet Professor (ASCP) Performed at: WB Performed By: #### H IV12 #### [facility] [address] [place] [address] Dr. Nolvia Ruvalcaba Specimen adequacy: Comment Normal [facility] Comment on above: Result Comment: Sati sfactory for evaluation. Endocervical and/or squamous metaplastic cells (endocervical component) are present. Performed at: WB Performed By: #### H IV12 #### [facility] [address] [address] [address] Nolvia Ruvalcaba HEPATITIS C ANTIBODYon 12-11 Hep C Virus Ab <0.1 Normal 0.0-0.9 [facility] Comment on above: Result Comment: Nega [...] Hepatitis C Virus (HCV) RNA, Diagnosis, THERON ([id number]) and Hepatitis C Virus (HCV) Antibody with reflex to Quantitative Real-time PCR ([id number]). Performed By: #### H IV12 #### [facility] [address] [address] [address] Nolvia Ruvalcaba HIV 1 AND 2 WITH REFLEXon HIV Screen 4th Generation wRfx Non-Reactive Normal Non Reactive [facility] Comment on above: Result Comment: HIV Negative HIV-1/HIV-2 antibodies and HIV-1 p24 antigen were NOT detected. There is no laboratory evidence of HIV infection. Performed By: #### H IV12 #### [facility] [address] [address] [address] Nolvia Ruvalcaba SGPTon 12-10-2021 ALT [Catalytic activity/Vol] 59 U/L Normal 14-59 [facility] Comment on above: Performed By: #### A LT ####[facility] [address] [place], [place] [address]Dr. Nolvia Ruvalcaba CBC AUTO DIFFon 11-04-2021 BASO # 0.1 103/ul Normal 0.0-0.1 [facility] Comment on above: Performed By: #### C BC ####[facility] [address] [address]Dr. Nolvia Ruvalcaba Basophils/100 WBC (Bld) 0.4 % Normal 0.2-2.0 [facility] Comment on above: Performed By: #### C BC ####[facility] [address] [place], [place] [address]DrDinorah Ruvalcaba EO # 0.2 103/ul Normal 0.0-0.7 [facility] Comment on above: Performed By: #### C BC ####[facility] [address] [place], [place] [address]Dr. Nolvia Ruvalcaba Eosinophils/100 WBC (Bld) 1.3 % Normal 0.9-7.0 [facility] Comment on above: Performed By: #### C BC ####[facility] [address] [place], [place] [address]Dr. Nolvia Ruvalcaba Erythrocyte distribution width (RBC) [Ratio] 14.2 % Normal 11.0-15.0 [facility] Comment on above: Performed By: #### C BC ####[facility] [address] [place], [place] [address]DrDinorah Ruvalcaba Hematocrit (Bld) [Volume fraction] 28.8 % Critically low 36.0-48.0 [facility] Comment on above: Performed By: #### C BC ####[facility] [address]jidn[address] [place] [id number]. Nolvia Ruvalcaba Hemoglobin (Bld) [Mass/Vol] 9.0 g/dL Critically low 12.0-16.0 [facility] Comment on above: Performed By: #### C BC ####[facility] Rjsfravorx3502 [place] [id number]. Nolvia Ruvalcaba IG # 0.16 10e3/ul Critically high 0.00-0.03 [facility] Comment on above: Performed By: #### C BC ####[facility] Dshhlxapqw[address] [place] [address]Dr. Nolvia Ruvalcaba IG % 1.1 % Critically high 0.0-0.5 [facility] Comment on above: Performed By: #### C BC ####[facility] Gsacoyysuo[address] [place] [address]Dr. Nolvia Jordon LYMPH # 1.8 103/ul Normal 1.2-3.8 [facility] Comment on above: Performed By: #### C BC ####[facility] Wowgvgdzes15[address] [place] [address]Dr. Nolvia Ruvalcaba Lymphocytes/100 WBC (Bld) 12.4 % Critically low 20.5-60.0 [facility] Comment on above: Performed By: #### C BC ####[facility] Bnrwstlbrd[address] [place] [address]Dr. Nolvia Jordon MANUAL DIFF REQ NO Normal The [facility] Comment on above: Performed By: #### C BC ####[facility] Pinzfvceco9025 [place] [id number]. Nolvia Ruvalcaba MCH (RBC) [Entitic mass] 28.6 pg Normal 26.7-34.0 [facility] Comment on above: Performed By: #### C BC ####[facility] Uaknwlwtuh6[address] [place] [id number]. Nolvia Jordon MCHC (RBC) [Mass/Vol] 31.3 g/dL Normal 29.9-35.2 [facility] Comment on above: Performed By: #### C BC ####[facility] Pedpovyutc8415 [place] [id number]. Nolvia Ruvalcaba MCV (RBC) [Entitic vol] 91.4 fL Normal 81.0-99.0 [facility] Comment on above: Performed By: #### C BC ####[facility] Ukhzvmweno8[address] [place] [id number]. Nolvia Ruvalcaba MONO # 1.0 103/ul Critically high 0.3-0.8 The [facility] Comment on above: Performed By: #### C BC ####[facility] Wrobrijflv7449 [place] [id number]. Nolvia Ruvalcaba Monocytes/100 WBC (Bld) 6.9 % Normal 1.7-12.0 [facility] Comment on above: Performed By: #### C BC ####[facility] [address] [place], [place] [id number]. Nolvia Ruvalcaba NEUT # 11.3 103/ul Critically high 1.4-6.5 [facility] Comment on above: Performed By: #### C BC ####[facility] Jlohgevhai6194 [place] [id number]. Nolvia Ruvalcaba Neutrophils/100 WBC (Bld) 77.9 % Critically high 43.0-75.0 [facility] Comment on above: Performed By: #### C BC ####[facility] Gnxhosggjf26[address] [place] [id number]. Nolvia Jordon Platelet mean volume (Bld) [Entitic vol] 9.8 fL Normal 9.5-13.5 The [facility] Comment on above: Performed By: #### C BC ####[facility] Ziurptqmyf95[address] [place] [id number]. Nolvia Jordon PLT 242 103/ul Normal 150-450 [facility] Comment on above: Performed By: #### C BC ####[facility] Himhlaqfhz2348 [place] [id number]. Nolvia Ruvalcaba RBC 3.15 106/ul Critically low 4.20-5.40 The [facility] Comment on above: Performed By: #### C BC ####[facility] Opfckmhdrs6768 [place] [id number]. Nlovia Ruvalcaba WBC 14.6 103/ul Critically high 4.0-11.0 [facility] Comment on above: Performed By: #### C BC ####[facility] Oepbxeugou7395 [place] [id number]. Nolvia Ruvalcaba CBC AUTO DIFFon 11-03-2021 BASO # 0.1 103/ul Normal 0.0-0.1 [facility] Comment on above: Performed By: #### C BC ####[facility] Itoiboyope3504 [place] [id number]. Nolvia Ruvalcaba Basophils/100 WBC (Bld) 0.3 % Normal 0.2-2.0 [facility] Comment on above: Performed By: #### C BC ####[facility] Bqpunaogju[address] [place], [place] [address]Dr. Nolvia Ruvalcaba EO # 0.1 103/ul Normal 0.0-0.7 [facility] Comment on above: Performed By: #### C BC ####[facility] Jofkziccvi30[address] [place] [address]Dr. Nolvia Ruvalcaba Eosinophils/100 WBC (Bld) 1.0 % Normal 0.9-7.0 [facility] Comment on above: Performed By: #### C BC ####[facility] Wumuhehsnx9560 [place] [id number]. Nolvia Ruvalcaba Erythrocyte distribution width (RBC) [Ratio] 14.2 % Normal 11.0-15.0 [facility] Comment on above: Performed By: #### C BC ####[facility] [address] [place], [place] [id number]. Nolvia Ruvalcaba Hematocrit (Bld) [Volume fraction] 33.5 % Critically low 36.0-48.0 [facility] Comment on above: Performed By: #### C BC ####[facility] Sofznagdob[address] [place], [place] [id number]. Nolvia Ruvalcaba Hemoglobin (Bld) [Mass/Vol] 10.9 g/dL Critically low 12.0-16.0 [facility] Comment on above: Performed By: #### C BC ####[facility] Nrqflxvbov3483 [place] [address]DrDinorah Ruvalcaba IG # 0.22 10e3/ul Critically high 0.00-0.03 [facility] Comment on above: Performed By: #### C BC ####[facility] Duzsgjeylb8296 [place] [id number] Ruvalcaba IG % 1.5 % Critically high 0.0-0.5 [facility] Comment on above: Performed By: #### C BC ####[facility] Zzvrplzywb5211 [place] [address]DrDinorah Ruvalcaba LYMPH # 2.3 103/ul Normal 1.2-3.8 [facility] Comment on above: Performed By: #### C BC ####[facility] Ssihmsnsxr2307 [place] [address]DrDinorah Ruvalcaba Lymphocytes/100 WBC (Bld) 16.1 % Critically low 20.5-60.0 [facility] Comment on above: Performed By: #### C BC ####[facility] Hqhbzmxutq39[address] [place] [address]DrDinorah Ruvalcaba MANUAL DIFF REQ NO Normal [facility] Comment on above: Performed By: #### C BC ####[facility] Bajhzqtjhf9944 [place] [address]DrDinorah Ruvalcaba MCH (RBC) [Entitic mass] 29.0 pg Normal 26.7-34.0 [facility] Comment on above: Performed By: #### C BC ####[facility] Vpxksejpmo2976 [place] [id number] Ruvalcaba MCHC (RBC) [Mass/Vol] 32.5 g/dL Normal 29.9-35.2 [facility] Comment on above: Performed By: #### C BC ####[facility] Hcdyhbjirp3889 [place] [id number] Ruvalcaba MCV (RBC) [Entitic vol] 89.1 fL Normal 81.0-99.0 [facility] Comment on above: Performed By: #### C BC ####[facility] Tvgwjiypzk2249 [place] [id number]. Nolvia Ruvalcaba MONO # 1.0 103/ul Critically high 0.3-0.8 The [facility] Comment on above: Performed By: #### C BC ####[facility] Muoszlvomq[address] [place] [id number]. Nolvia Ruvalcaba Monocytes/100 WBC (Bld) 7.0 % Normal 1.7-12.0 [facility] Comment on above: Performed By: #### C BC ####[facility] Rgschtoqdt6670 [place] [id number]. Nolvia Ruvalcaba NEUT # 10.6 103/ul Critically high 1.4-6.5 [facility] Comment on above: Performed By: #### C BC ####[facility] Avdcthozoc3498 [place] [address]Dr. Nolvia Ruvalcaba Neutrophils/100 WBC (Bld) 74.1 % Normal 43.0-75.0 [facility] Comment on above: Performed By: #### C BC ####[facility] Mkhvujuhln[address] [place] [address]Dr. Nolvia Ruvalcaba Platelet mean volume (Bld) [Entitic vol] 10.4 fL Normal 9.5-13.5 [facility] Comment on above: Performed By: #### C BC ####[facility] [address] [place], [place] [address]Dr. Nolvia Ruvalcaba PLT 320 103/ul Normal 150-450 [facility] Comment on above: Performed By: #### C BC ####[facility] Arhiarhcyh5640 [place] [id number]. Nolvia Ruvalcaba RBC 3.76 106/ul Critically low 4.20-5.40 The [facility] Comment on above: Performed By: #### C BC ####[facility] Vosibclstd9849 [place] [id number]. Nolvia Jordon WBC 14.3 103/ul Critically high 4.0-11.0 [facility] Comment on above: Performed By: #### C BC ####[facility] K[address]mmdwg75[address] [place] [address]Dr. Nolvia Ruvalcaba CULTURE URINEon 11-03-2021 CULTURE URINE Culture Observations : NO GROWTH. Normal The [facility] Comment on above: Performed By: #### U RCX #### [facility] [address] [place] [address] [address] Nolvia Ruvalcaba DRUG SCREEN RAPID (URINE)on 11-03-2021 AMP Negative Normal NEGATIVE [facility] Comment on above: Performed By: #### D RUGRPD ####[facility] Jlwqvzuhmd[address] [place] [address]Dr. Nolvia Ruvalcaba BAR Negative Normal NEGATIVE The [facility] Comment on above: Performed By: #### D RUGRPD ####[facility] Unidvqlruw26[address] [place] [address]Dr. Nolvia Ruvalcaba BUP Negative Normal NEGATIVE The [facility] Comment on above: Performed By: #### D RUGRPD ####[facility] Jwzodcduja6876 [place] [address]Dr. Nolvia Ruvalcaba BZO Negative Normal NEGATIVE The [facility] Comment on above: Performed By: #### D RUGRPD ####[facility] Xopugwlhzs7377 [place] [address]Dr. Nolvia Ruvalcaba MARIO Negative Normal NEGATIVE The [facility] Comment on above: Performed By: #### D RUGRPD ####[facility] Bveefwbxzk5687 [place] [address]Dr. Nolvia Ruvalcaba CUT-OFFS SEE BELOW Normal [facility] Comment on above: Result Comment: [...] 300 ng/mL Performed By: #### D RUGRPD ####[facility] Akp[address]yeb[address] [place], [place] [address]Dr. Nolvia Ruvalcaba DRUG CUT HEADER DRUG CLASS TEST SYSTEM CUT-OFF CONCENTRATIONS ARE FOLLOWS: Normal The [facility] Comment on above: Performed By: #### D RUGRPD ####[facility] B[address]mx[address]dp[address] [place], [place] [address]Dr. Nolvia Ruvalcaba mAMP Negative Normal NEGATIVE The [facility] Comment on above: Performed By: #### D RUGRPD ####[facility] Kn[address]sf[address] [place], [place] [address]Dr. Nolvia Ruvalcaba MTD Negative Normal NEGATIVE The [facility] Comment on above: Performed By: #### D RUGRPD ####[facility] X[address]wqu[address] [place], [place] [address]Dr. Liyayaniv Ruvalcaba OPI Negative Normal NEGATIVE The [facility] Comment on above: Performed By: #### D RUGRPD ####[facility] Frncc[address]lzm[address] [place], [place] [address]Dr. Nolvia Ruavlcaba OXY Negative Normal NEGATIVE The [facility] Comment on above: Performed By: #### D RUGRPD ####[facility] I[address]cms[address]gu[address] [place], [place] [address]Dr. Liyayaniv Ruvalcaba PCP Negative Normal NEGATIVE The [facility] Comment on above: Performed By: #### D RUGRPD ####[facility] Brbpvkbwpw[address] [place], [place] [address]Dr. Nolvia Ruvalcaba PPX Negative Normal NEGATIVE The [facility] Comment on above: Performed By: #### D RUGRPD ####[facility] [address] [place], [place] [address]Dr. Nolvia Ruvalcaba TCA Negative Normal NEGATIVE The [facility] Comment on above: Performed By: #### D RUGRPD ####[facility] [address] [place], [place] [address]Dr. Nolvia Ruvalcaba THC Negative Normal NEGATIVE The [facility] Comment on above: Performed By: #### D RUGRPD ####[facility] Lnzdsjysdn39[address] [place] [address]Dr. Nolvia Ruvalcaba TYPE AND SCREENon 11-03-2021 TYPE AND SCREEN Negative Normal The [facility] Comment on above: Performed By: #### T NS #### [facility] [address] [place], [place] [address] Dr. Nolvia Ruvalcaba UA (CLEAN/CATCH) PARTNER INTEGRATION PLANNER/MICRO I F IND.on 11-03-2021 Bilirubin Ql (U) Negative Normal NEGATIVE [facility] Comment on above: Performed By: #### U MICRO, UACSIND ####[facility] W[address]iv[address]akcbz[address] [place] [address]Dr. Nolvia Ruvalcaba Clarity (U) SL CLOUDY Abnormal CLEAR [facility] Comment on above: Performed By: #### U MICRO, UACSIND ####[facility] Ajnifwttcg[address] [place] [address]Dr. Nolvia Ruvalcaba Color (U) LT. YELLOW Normal YELLOW [facility] Comment on above: Performed By: #### U MICRO, UACSIND ####[facility] Mcsackbfxq[address] [place] [address]Dr. Nolvia Ruvalcaba Glucose Ql (U) Negative Normal NEGATIVE The [facility] Comment on above: Performed By: #### U MICRO, UACSIND ####[facility] Ktncsvijjc5391 [place] [address]Dr. Nolvia Ruvalcaba Hemoglobin Ql (U) SMALL Abnormal NEGATIVE The [facility] Comment on above: Performed By: #### U MICRO, UACSIND ####[facility] Sfdlovtevg6037 [place] [address]Dr. Nolvia Ruvalcaba Ketones Ql (U) Negative Normal NEGATIVE The [facility] Comment on above: Performed By: #### U MICRO, UACSIND ####[facility] Ojwjvxpsut64[address] [place] [address]Dr. Nolvia Ruvalcaba LEUKOCYTES SMALL Abnormal NEGATIVE [facility] Comment on above: Performed By: #### U MICRO, UACSIND ####[facility] Qtqeuweruv0426 [place] [address]Dr. Nolvia Ruvalcaba Nitrite Ql (U) Negative Normal NEGATIVE The [facility] Comment on above: Performed By: #### U MICRO, UACSIND ####[facility] Uvhhlfkkms6[address] [place] [address]Dr. Nolvia Ruvalcaba pH (U) 6.0 [pH] Normal 5-9 [facility] Comment on above: Performed By: #### U MICRO, UACSIND ####[facility] Iwrzcbkyxs4[address] [place] [address]Dr. Nolvia Ruvalcaba SPEC GRAVITY >=1.030 Abnormal 1.005-<=1.025 The [facility] Comment on above: Performed By: #### U MICRO, UACSIND ####[facility] [address] [place], [place] [address]Dr. Nolvia Ruvalcaba UA PROTEIN Negative Normal NEGATIVE/ TRACE The [facility] Comment on above: Performed By: #### U MICRO, UACSIND ####[facility] [address]jzrlawjb[address] [place], [place] [address]Dr. Nolvia Ruvalcaba UR MICRO IND INDICATED Normal The [facility] Comment on above: Performed By: #### U MICRO, UACSIND ####[facility] Qribbnctfk[address] [place], [place] [address]Dr. Nolvia Ruvalcaba Urobilinogen Qn (U) 0.2 {Cami'U}/dL Normal 0.2 - 1. 0 [facility] Comment on above: Performed By: #### U MICRO, UACSIND ####[facility] Y[address]ved[address] [place], [place] [address]Dr. Nolvia Ruvalcaba URINE MICROSCOPIC ONLYon BACTERIA MODERATE Abnormal NONE SEEN The [facility] Comment on above: Performed By: #### U MICRO, UACSIND ####[facility] Syxc[address]ro[address] [place], [place] [address]Dr. Nolvia Ruvalcaba Bacteria identified Cx Nom (U) INDICATED Normal The [facility] Comment on above: Performed By: #### U MICRO, UACSIND ####[facility] [address]smxj[address] [place], [place] [address]Dr. Nolvia Ruvalcaba CAST NONE SEEN Normal NONE SEEN The [facility] Comment on above: Performed By: #### U MICRO, UACSIND ####[facility] Ckspdsxvwp7[address] [place] [address]Dr. Nolvia Ruvalcaba Crystals LM Nom (Urine sed) NONE SEEN Normal NONE SEEN The [facility] Comment on above: Performed By: #### U MICRO, UACSIND ####[facility] Azvnqyjlud6[address] [place] [address]Dr. Nolvia Jordon Epithelial cells LM Ql (Urine sed) MODERATE Abnormal NONE SEEN /RARE The [facility] Comment on above: Performed By: #### U MICRO, UACSIND ####[facility] Oroffnzzht[address] [place] [address]Dr. Nolvia Jordon MUCOUS NONE SEEN Normal NONE SEEN The [facility] Comment on above: Performed By: #### U MICRO, UACSIND ####[facility] Umqiwmogzb83[address] [place] [address]Dr. Nolvia Ruvalcaba RBC 2-5 Abnormal 0-2 [facility] Comment on above: Performed By: #### U MICRO, UACSIND ####[facility] Zhdybjenhr19[address] [place] [address]Dr. Liyayaniv Ruvalcaba WBC 5-10 Abnormal NONE SEEN The [facility] Comment on above: Performed By: #### U MICRO, UACSIND ####[facility] Vtmvluemig06[address] [place] [address]Dr. Nolvia Jordon Covid-19 PCR (CVDTB)on 10-15 SARS-CoV-2 (COVID-19) RNA THERON+probe Ql (Unsp spec) Not detected Normal NOT DETECTED [facility] Comment on above: Result Comment: This test is not yet approved or cleared by the [place] FDA. When there are no FDA-approved or cleared tests available, and other criteria are met, FDA can make tests available under an emergency access mechanism called an Emergency Use Authorization (EUA). The EUA for this test is supported by the [place] of Health and Human Service's (HHS's) declaration [...] SARS-CoV-2. Performed By: #### H IV12 #### [facility] [address] [place] [address] [address] Nolvia Ruvalcaba GROUP B STREP CULTUREon -3 S. agalactiae Ag Ql (Unsp spec) Culture Observations: NEGATIVE FOR GROUP B STREPTOCOCCUS. Normal [facility] Comment on above: Performed By: #### G BSCX #### [facility] [address] [place] [address] Dr. Nolvia Ruvalcaba HEP C RNA BY PCR QUANT (NON- GRAPHICAL) Won 08-29-2021 HCV Genotype RTNI Normal [facility] Comment on above: Result Comment: Not indicated Performed By: #### H CVPCRN ####[facility] [address]ogaytlz[address] [place] [address]DrDinorah Ruvalcaba HCV log10 UPTCAL Normal [facility] Comment on above: Result Comment: Unab le to calculate result since non-numeric result obtained for component test. Performed By: #### H CVPCRN ####[facility] [address]byghvuag[address] [place] [address]DrDinorah Ruvalacba Hepatitis C Quantitation Not detected Normal [facility] Comment on above: Performed By: #### H CVPCRN ####[facility] Xtihmpfshr37[address] [place] [address]Dr. Nolvia Ruvalcaba Test Information: Comment Normal [facility] Comment on above: Result Comment: The quantitative range of this assay is 15 IU/mL to 100 million IU/mL. Performed By: #### H CVPCRN ####[facility] Tdizojsxed[address] [place] [address]DrDinorah Ruvalcaba HIV 1 AND 2 WITH REFLEXon HIV Screen 4th Generation wRfx Non-Reactive Normal Non Reactive [facility] Comment on above: Result Comment: HIV Negative HIV-1/HIV-2 antibodies and HIV-1 p24 antigen were NOT detected. There is no laboratory evidence of HIV infection. Performed By: #### A 1C #### [facility] [address] [place] [address] [address] Nolvia Ruvalcaba RPR QUANTon 08-29-2021 Rapid Plasma Reagin, Quant Non-Reactive Normal NonRea<1:1 [facility] Comment on above: Result Comment: Plea se Note: This test does not meet current guidelines for screening and diagnosis of syphilis. This test is intended for following treatment response in patients being treated for syphilis infection. To screen for syphilis infection, a reflex cascade that includes both RPR and a treponema-specific assay should be utilized, such as Treponema pallidum (Syphilis) Screening [place] (868834) or Rapid Plasma Reagin (RPR) Test With Reflex to Quantitative RPR and Confirmatory Treponema pallidum Antibodies (053997). Performed By: #### H IV12 #### [facility] [address] [place] [address] [address] Nolvia Ruvalcaba GLUCOSE - 1HRon 08-18-2021 Glucose [Mass/Vol] 124 mg/dL Critically high 74-106 T [facility] Comment on above: Performed By: #### G LU1HR ####[facility] Syox[address]ohaop[address] [place], [place] [address]XuDr. Nolvia Ruvalcaba HEMOGRAM AND PLATELon 2021 Hematocrit (Bld) [Volume fraction] 33.2 % Critically low 36.0-48.0 [facility] Comment on above: Performed By: #### H IV12 #### [facility] [address] [place] [address] [address] Nolvia Ruvalcaba Hemoglobin (Bld) [Mass/Vol] 10.5 g/dL Critically low 12.0-16.0 [facility] Comment on above: Performed By: #### H IV12 #### [facility] [address] [place] [address] [address] Nolvia Ruvalcaba MCH (RBC) [Entitic mass] 29.4 pg Normal 26.7-34.0 [facility] Comment on above: Performed By: #### H IV12 #### [facility] [address] [place] [address] [address] Nolvia Ruvalcaba MCHC (RBC) [Mass/Vol] 31.6 g/dL Normal 29.9-35.2 [facility] Comment on above: Performed By: #### H IV12 #### [facility] [address] [place] [address] [address] Nolvia Ruvalcaba MCV (RBC) [Entitic vol] 93.0 fL Normal 81.0-99.0 [facility] Comment on above: Performed By: #### H IV12 #### [facility] [address] [place] [address] [address] Nolvia Ruvalcaba PLT 303 103/ul Normal 150-450 [facility] Comment on above: Performed By: #### H IV12 #### [facility] [address] [place] [address] [address] Nolvia Ruvalcaba RBC 3.57 106/ul Critically low 4.20-5.40 [facility] Comment on above: Performed By: #### H IV12 #### [facility] [address] [address] [address] Nolvia Ruvalcaba WBC 12.3 103/ul Critically high 4.0-11.0 [facility] Comment on above: Performed By: #### H IV12 #### [facility] [address] [address] [address] Nolvia Ruvalcaba US PREG PLACENTAon 2 US PREG PLACENTA EXAMINATION: US PREG PLACENTA HISTORY: Low lying placenta COMPARISON: Ultrasound placenta 07/30/2021 FINDINGS: PLACENTA: Posterior with lower margin 3.8 cm from os. CERVIX LENGTH: 4.6 cm; closed. HEART RATE: 138 bpm OTHER: None. IMPRESSION: 1. Posterior placenta which is no longer low-lying. Electronically authenticated by: FRANCIA CRENSHAW Date: 2021-08-18 16:15 Normal [facility] US PREG PLACENTAon 2 US [...] FRANCIA CRENSHAW Date: 2021-07-30 17:39 Normal [facility] HEP C RNA BY PCR QUANT (NON- GRAPHICAL) Won 07-16-2021 HCV Genotype RTNI Normal [facility] Comment on above: Result Comment: Not indicated Performed By: #### H CVPCRN ####[facility] [address] [place], [place] [address]Dr. Nolvia Ruvalcaba HCV log10 UPTCAL Normal [facility] Comment on above: Result Comment: Unab le to calculate result since non-numeric result obtained for component test. Performed By: #### H CVPCRN ####[facility] [address] [place], [place] [address]Dr. Nolvia Ruvalcaba Hepatitis C Quantitation Not detected Normal [facility] Comment on above: Performed By: #### H CVPCRN ####[facility] [address] [place], [place] [address]Dr. Nolvia Ruvalcaba Test Information: Comment Normal [facility] Comment on above: Result Comment: The quantitative range of this assay is 15 IU/mL to 100 million IU/mL. Performed By: #### H CVPCRN ####[facility] [address] [place], [place] [address]Dr. Nolvia Ruvalcaba HIV 1 AND 2 WITH REFLEXon HIV Screen 4th Generation wRfx Non-Reactive Normal Non Reactive [facility] Comment on above: Result Comment: HIV Negative HIV-1/HIV-2 antibodies and HIV-1 p24 antigen were NOT detected. There is no laboratory evidence of HIV infection. Performed By: #### H IV12 ####[facility] [address] [place], [place] [address]Dr. Nolvia Ruvalcaba RPR QUANTon 07-15-2021 Rapid Plasma Reagin, Quant Non-Reactive Normal NonRea<1:1 [facility] Comment on above: Result Comment: Plea se Note: This test does not meet current guidelines for screening and diagnosis of syphilis. This test is intended for following treatment response in patients being treated for syphilis infection. To screen for syphilis infection, a reflex cascade that includes both RPR and a treponema-specific assay should be utilized, such as Treponema pallidum (Syphilis) Screening [place] (201300) or Rapid Plasma Reagin (RPR) Test With Reflex to Quantitative RPR and Confirmatory Treponema pallidum Antibodies ([id number]). Performed By: #### R PRQ #### [facility] [address] [place] [address] Dr. Nolvia Ruvalcaba US PREG ANATOMY SINGLEon [...] KASEY NYE Date: 2021-06-18 16:55 Normal [facility] HEP B SURFACE AB QUALITATIVE on 05-30-2021 Hep B Surface Ab, Qual Reactive Normal [facility] Comment on above: Result Comment: Non Reactive: Inconsistent with immunity, less than 10 mIU/mL Reactive: Consistent with immunity, greater than 9.9 mIU/mL Performed By: #### H BSABQL ####[facility] [address] [id number]. Nolvia Ruvalcaba HEPATITIS C ANTIBODYon 05-30 Hep C Virus Ab <0.1 Normal 0.0-0.9 [facility] Comment on above: Result Comment: Nega tive: < 0.8 Indeterminate: 0.8 - 0.9 Positive: > 0.9 . The CDC recommends that a positive HCV antibody result be followed up with a HCV Nucleic Acid Amplification test ([id number]). Performed By: #### H IV12 #### [facility] [address] [place] [address] Dr. Nolvia Ruvalcaba HIV 1 AND 2 WITH REFLEXon HIV Screen 4th Generation wRfx Non-Reactive Normal Non Reactive [facility] Comment on above: Result Comment: HIV Negative HIV-1/HIV-2 antibodies and HIV-1 p24 antigen were NOT detected. There is no laboratory evidence of HIV infection. Performed By: #### H IV12 ####[facility] [address] [id number]. Nolvia Ruvalcaba RPR QUANTon 05-30-2021 Rapid Plasma Reagin, Quant Non-Reactive Normal NonRea<1:1 [facility] Comment on above: Result Comment: Plea se Note: This test does not meet current guidelines for screening and diagnosis of syphilis. This test is intended for following treatment response in patients being treated for syphilis infection. To screen for syphilis infection, a reflex cascade that includes both RPR and a treponema-specific assay should be utilized, such as Treponema pallidum (Syphilis) Screening [place] (950257) or Rapid Plasma Reagin (RPR) Test With Reflex to Quantitative RPR and Confirmatory Treponema pallidum Antibodies ([id number]). Performed By: #### R PRQ ####[facility] [address] [address]DrDinorah Ruvalcaba CHLAMYDIA/GONOCOCCUS THERON (SW AB/URINE/PAPon 05-28-2021 Chlamydia trachomatis, THERON Negative Normal Negative [facility] Comment on above: Performed By: #### C T/NGNA ####[facility] [address] [id number] Ruvalcaba Neisseria gonorrhoeae, THERON Negative Normal Negative [facility] Comment on above: Performed By: #### C T/NGNA ####[facility] [address] [address]DrDinorah Ruvalcaba VAGINITIS/VAGINOSIS DNA PROB Edson 05-27-2021 Arielle species Negative Normal Negative [facility] Comment on above: Performed By: #### H IV12 #### [facility] [address] [address] [address] Nolvia Ruvalcaba Gardnerella vaginalis Negative Normal Negative [facility] Comment on above: Performed By: #### H IV12 #### [facility] [address] [address] [address] Nolvia Ruvalcaba Trichomonas vaginalis Negative Normal Negative [facility] Comment on above: Performed By: #### H IV12 #### [facility] [address] [address] [address] Nolvia Ruvalcaba HEP B SURFACE ANTIGEN SCREEN on 04-28-2021 HBsAg Screen Negative Normal Negative [facility] Comment on above: Performed By: #### H BSANS ####[facility] [address] [address]DrDinorah Ruvalcaba HEPATITIS C VIRUS AB W/ REFL EX QUANTon 04-28-2021 HCV AB <0.1 Normal 0.0-0.9 [facility] Comment on above: Performed By: #### H CVPCRR ####[facility] [address] [address]DrDinorah Ruvalcaba Interpretation: Comment Normal [facility] Comment on above: Result Comment: Nega tive Not infected with HCV, unless recent infection is suspected or other evidence exists to indicate HCV infection. Performed By: #### H CVPCRR ####[facility] [address] [address]Dr. Nolvia Ruvalcaba HIV 1 AND 2 WITH REFLEXon HIV Screen 4th Generation wRfx Non-Reactive Normal Non Reactive [facility] Comment on above: Result Comment: HIV Negative HIV-1/HIV-2 antibodies and HIV-1 p24 antigen were NOT detected. There is no laboratory evidence of HIV infection. Performed By: #### H IV12 #### [facility] [address] [place] [address] Dr. Nolvia Ruvalcaba RPR QUANTon 04-28-2021 Rapid Plasma Reagin, Quant Non-Reactive Normal NonRea<1:1 [facility] Comment on above: Performed By: #### R PRQ ####[facility] [address] [address]DrDinorah Ruvalcaba RUBELLA AB IGGon 04-28-2021 Rubella Antibodies, IgG 1.50 index Normal Immune >0.99 [facility] Comment on above: Result Comment: Non- immune <0.90 Equivocal 0.90 - 0.99 Immune >0.99 Performed By: #### H IV12 #### [facility] [address] [place] [address] Dr. Nolvia Ruvalcaba CBC AUTO DIFFon 04-27-2021 BASO # 0.0 103/ul Normal 0.0-0.1 [facility] Comment on above: Performed By: #### H IV12 #### [facility] [address] [place] [address] Dr. Nolvia Ruvalcaba Basophils/100 WBC (Bld) 0.3 % Normal 0.2-2.0 [facility] Comment on above: Performed By: #### H IV12 #### [facility] [address] [place] [address] Dr. Nolvia Ruvalcaba EO # 0.1 103/ul Normal 0.0-0.7 [facility] Comment on above: Performed By: #### H IV12 #### [facility] [address] [place] [address] Dr. Nolvia Ruvalcaba Eosinophils/100 WBC (Bld) 1.4 % Normal 0.9-7.0 [facility] Comment on above: Performed By: #### H IV12 #### [facility] [address] [place] [address] Dr. Nolvia Ruvalcaba Erythrocyte distribution width (RBC) [Ratio] 12.4 % Normal 11.0-15.0 [facility] Comment on above: Performed By: #### H IV12 #### [facility] [address] [place] [address] Dr. Nolvia Ruvalcaba Hematocrit (Bld) [Volume fraction] 40.7 % Normal 36.0-48.0 [facility] Comment on above: Performed By: #### H IV12 #### [facility] [address] [place] [address] Dr. Nolvia Ruvalcaba Hemoglobin (Bld) [Mass/Vol] 13.5 g/dL Normal 12.0-16.0 [facility] Comment on above: Performed By: #### H IV12 #### [facility] [address] [place] [address] Dr. Nolvia Ruvalcaba IG # 0.04 10e3/ul Critically high 0.00-0.03 [facility] Comment on above: Performed By: #### H IV12 #### [facility] [address] [place] [address] Dr. Nolvia Ruvalcaba IG % 0.4 % Normal 0.0-0.5 [facility] Comment on above: Performed By: #### H IV12 #### [facility] [address] [place] [address] Dr. Nolvia Ruvalcaba LYMPH # 1.3 103/ul Normal 1.2-3.8 [facility] Comment on above: Performed By: #### H IV12 #### [facility] [address] [place] [address] Dr. Nolvia Ruvalcaba Lymphocytes/100 WBC (Bld) 13.8 % Critically low 20.5-60.0 [facility] Comment on above: Performed By: #### H IV12 #### [facility] [address] [place] [address] Dr. Nolvia Ruvalcaba MANUAL DIFF REQ NO Normal [facility] Comment on above: Performed By: #### H IV12 #### [facility] [address] [place] [address] Dr. Nolvia Ruvalcaba MCH (RBC) [Entitic mass] 30.1 pg Normal 26.7-34.0 [facility] Comment on above: Performed By: #### H IV12 #### [facility] [address] [place] [address] Dr. Nolvia Ruvalcaba MCHC (RBC) [Mass/Vol] 33.2 g/dL Normal 29.9-35.2 [facility] Comment on above: Performed By: #### H IV12 #### [facility] [address] [place] [address] Dr. Nolvia Ruvalcaba MCV (RBC) [Entitic vol] 90.8 fL Normal 81.0-99.0 [facility] Comment on above: Performed By: #### H IV12 #### [facility] [address] [place] [address] Dr. Nolvia Ruvalcaba MONO # 0.4 103/ul Normal 0.3-0.8 [facility] Comment on above: Performed By: #### H IV12 #### [facility] [address] [place] [address] Dr. Nolvia Ruvalcaba Monocytes/100 WBC (Bld) 4.2 % Normal 1.7-12.0 [facility] Comment on above: Performed By: #### H IV12 #### [facility] [address] [place] [address] Dr. Nolvia Ruvalcaba NEUT # 7.5 103/ul Critically high 1.4-6.5 [facility] Comment on above: Performed By: #### H IV12 #### [facility] [address] [place] [address] Dr. Nolvia Ruvalcaba Neutrophils/100 WBC (Bld) 79.9 % Critically high 43.0-75.0 [facility] Comment on above: Performed By: #### H IV12 #### [facility] [address] [address] [address] Nolvia Ruvalcaba Platelet mean volume (Bld) [Entitic vol] 9.3 fL Critically low 9.5-13.5 [facility] Comment on above: Performed By: #### H IV12 #### [facility] [address] [address] [address] Nolvia Ruvalcaba PLT 322 103/ul Normal 150-450 [facility] Comment on above: Performed By: #### H IV12 #### [facility] [address] [address] [address] Nolvia Ruvalcaba RBC 4.48 106/ul Normal 4.20-5.40 [facility] Comment on above: Performed By: #### H IV12 #### [facility] [address] [address] [address] Nolvia Ruvalcaba WBC 9.4 103/ul Normal 4.0-11.0 [facility] Comment on above: Performed By: #### H IV12 #### [facility] [address] [address] [address] Nolvia Ruvalcaba CULTURE URINEon 04-27-2021 CULTURE URINE Culture Observations : LIGHT GROWTH OF MIXED GENITAL SPENCER. NO POTENTIAL PATHOGENS SEEN. Normal [facility] Comment on above: Performed By: #### U RCX ####[facility] [address] [address]Dr. Nolvia Ruvalcaba GLYCOHEMOGLOBIN A1Con 2021 ADA RECOMMENDATION ADA THERAPEUTIC TARGET 6.0 - 7.0 ACTION SUGGESTED > 7.0 Normal [facility] Comment on above: Performed By: #### A 1C #### [facility] [address] [address] [address] Nolvia Ruvalcaba Glucose [Mass/Vol] 108 mg/dL Normal [facility] Comment on above: Performed By: #### A 1C #### [facility] [address] [address] [address] Nolvia Ruvalcaba HbA1c (Bld) [Mass fraction] 5.4 % Normal <=6.0 [facility] Comment on above: Performed By: #### A 1C #### [facility] [address] [place], [place] [address] Dr. Nolvia Ruvalcaba TYPE AND SCREENon 04-27-2021 TYPE AND SCREEN Negative Normal [facility] Comment on above: Performed By: #### T NS ####[facility] [address] [place], [place] [address]Dr. Nolvia Ruvalcaba US PREG TVon 03-27-2021 US [...] FRANCIA CRENSHAW Date: 2021-03-27 09:39 Normal [facility] Vital Signs Date Time Vital Sign Value Performing Clinician Facility 11-05-2024 10:11-0400 Body mass index (BMI) [Ratio] 28.89 kg/m2 [employer] Work Phone: [facility] 11-05-2024 [id number] Body weight 86.18 kg [employer] Work Phone: [facility] 11-05-2024 [id number] Diastolic blood pressure 70 mm[Hg] [employer] Work Phone: [facility] 11-05-2024 10:11-040 Systolic blood pressure 112 mm[Hg] [employer] Work Phone: [facility] 10-24-2024 15:02-040 Body mass index (BMI) [Ratio] 28.74 kg/m2 [employer] Work Phone: [facility] 10-24-2024 15:02040 Body weight 85.73 kg Cindy ZHU Work Phone: [facility] 10-24-2024 15:02-0400 Diastolic blood pressure 60 mm[Hg] Cindy Ricardo PA Work Phone: [facility] 10-24-2024 15:02-0400 Systolic blood pressure 100 mm[Hg] Cindy Petersburg PA Work Phone: [facility] 09-26-2024 15:04-0400 Body mass index (BMI) [Ratio] 28.28 kg/m2 Arelis Mary Lou DO Work Phone: [facility] 09-26-2024 15:04-0400 Body weight 84.37 kg Arelis Mary Lou DO Work Phone: [facility] 09-26-2024 15:04-0400 Diastolic blood pressure 70 mm[Hg] Arelis Mary Lou DO Work Phone: [facility] 09-26-2024 15:04-0400 Systolic blood pressure 118 mm[Hg] Arelis Mary Lou DO Work Phone: [facility] 08-29-2024 15:37-0400 Body mass index (BMI) [Ratio] 27.06 kg/m2 Cindy Ricardo PA Work Phone: [facility] 08-29-2024 15:37-0400 Body weight 80.74 kg Cindy Ricardo PA Work Phone: [facility] 08-29-2024 15:37-0400 Diastolic blood pressure 70 mm[Hg] Cindy Ricardo PA Work Phone: [facility] 08-29-2024 15:37-0400 Systolic blood pressure 122 mm[Hg] Cindy Petersburg PA Work Phone: [facility] 08-02-2024 09:48-0400 Body mass index (BMI) [Ratio] 26.72 kg/m2 Arelis Mary Lou DO Work Phone: [facility] 08-02-2024 09:48-0400 Body weight 79.72 kg Arelis Mary Lou DO Work Phone: [facility] 08-02-2024 09:48-0400 Diastolic blood pressure 70 mm[Hg] Arelis Mary Lou DO Work Phone: [facility] [id number] 08-02-2024 09:48-0400 Systolic blood pressure 112 mm[Hg] Arelis Mary Lou DO Work Phone: [facility] [id number] 02-24-2023 11:15-0500 Body height 172.72 cm Jenn Gallegos Other [employer] Other 02-24-2023 11:15-0500 Body mass index (BMI) [Ratio] 26.76 kg/m2 Jenn Gallegos Other [employer] Other 02-24-2023 11:15-0500 Body weight 79.83 kg Jenn Gallegos Other [employer] Other 02-24-2023 11:15-0500 Diastolic blood pressure 64 mm[Hg] Jenn Gallegos Other [employer] Other 02-24-2023 11:15-0500 Respiratory rate 16 /min Jenn Gallegos Other [employer] Other 02-24-2023 11:15-0500 SaO2% (BldA) [Mass fraction] 99 % Jenn Gallegos Other [employer] Other 02-24-2023 11:15-0500 Systolic blood pressure 129 mm[Hg] Jenn Gallegos Other [employer] Other 05-06-2022 14:45-0400 Body height 172.72 cm Jenn Gallegos Other [employer] Other 05-06-2022 14:45-0400 Body mass index (BMI) [Ratio] 27.85 kg/m2 Jenn Gallegos Other [employer] Other 05-06-2022 14:45-0400 Body weight 83.1 kg Jenn Gallegos Other [employer] Other 05-06-2022 14:45-0400 Diastolic blood pressure 76 mm[Hg] Jenn Gallegos Other [employer] Other 05-06-2022 14:45-0400 Respiratory rate 16 /min Jenn Gallegos Other [employer] Other 05-06-2022 14:45-0400 SaO2% (BldA) [Mass fraction] 99 % Jenn Gallegos Other [employer] Other 05-06-2022 14:45-0400 Systolic blood pressure 110 mm[Hg] Jenn Gallegos Other [employer] Other 02-11-2022 16:30-0500 Body height 172.72 cm Mike Estrada Other [employer] Other 02-11-2022 16:30-0500 Body mass index (BMI) [Ratio] 28.64 kg/m2 Mike Estrada Other [employer] Other 02-11-2022 16:30-0500 Body weight 85.46 kg Mike Estrada Other [employer] Other 02-11-2022 16:30-0500 Diastolic blood pressure 80 mm[Hg] Mike Estrada Other [employer] Other 02-11-2022 16:30-0500 Respiratory rate 16 /min Mike Estrada Other [employer] Other 02-11-2022 16:30-0500 SaO2% (BldA) [Mass fraction] 97 % Mike Estrada Other [employer] Other 02-11-2022 16:30-0500 Systolic blood pressure 124 mm[Hg] Mike Estrada Other [employer] Other 02-11-2021 16:15-0500 Body height 172.72 cm Jenn Gallegos Other [employer] Other 02-11-2021 16:15-0500 Body mass index (BMI) [Ratio] 27.37 kg/m2 Jenn Gallegos Other [employer] Other 02-11-2021 16:15-0500 Body weight 81.65 kg Jenn Gallegos Other [employer] Other 02-11-2021 16:15-0500 Diastolic blood pressure 62 mm[Hg] Jenn Gallegos Other [employer] Other 02-11-2021 16:15-0500 Respiratory rate 16 /min Jenn Gallegos Other [employer] Other 02-11-2021 16:15-0500 SaO2% (BldA) [Mass fraction] 99 % Jenn Gallegos Other [employer] Other 02-11-2021 16:15-0500 Systolic blood pressure 118 mm[Hg] Jenn Gallegos Other [employer] Other Encounters Encounter Date Encounter Type Care Provider Facility Start: 11-05-2024 End: 11-05-2024 Bamboo flowsheet Arelis Mary Lou DO Work Phone: [facility] Start: 11-05-2024 End: 11-05-2024 Bamboo flowsheet Arelis Mary Lou DO Work Phone: [facility] Start: 11-05-2024 End: 11-05-2024 flow sheet Arelis Mary Lou DO Work Phone: [facility] Comment on above: Anemia, unspecified type (Primary Dx); Third trimester ([facility]); 28 weeks gestation of ([facility]) Start: 10-24-2024 End: 10-24-2024 flow sheet Cindy [facility] Work Phone: [facility] Comment on above: 26 weeks gestation o f ([facility]); Second trimester ([facility]); Anemia during in second trimester ([facility]) Start: 10-24-2024 End: 10-24-2024 ambulatory CINDY THOMAS Not Available Start: 10-24-2024 End: 10-24-2024 Bamboo flowsheet Cindy ZHU Work Phone: [facility] Start: 10-24-2024 End: 10-24-2024 Bamboo flowsheet Cindy ZHU Work Phone: [facility] Start: 10-08-2024 End: 10-08-2024 Clinisync Result Encounter Arelis Mary Lou DO Work Phone: [facility] Unsolicited Start: 10-08-2024 End: 10-08-2024 Clinisync Result Encounter Arelis Mary Lou DO Work Phone: [facility] Unsolicited Start: 09-26-2024 End: 09-26-2024 flow sheet Arelis Mary Lou DO Work Phone: [facility] Comment on above: Diabetes mellitus sc reening; Second trimester ([facility]); 22 weeks gestation of ([facility]) Start: 09-26-2024 End: 09-26-2024 ambulatory ARELIS MARY LOU Not Available Start: 09-26-2024 End: 09-26-2024 Bamboo flowsheet Arelis Mary Lou DO Work Phone: [facility] Start: 09-26-2024 End: 09-26-2024 Bamboo flowsheet Arelis Mary Lou DO Work Phone: [facility] Start: 09-13-2024 End: 09-13-2024 ambulatory CINDY THOMAS Not Available Start: 08-29-2024 End: 08-29-2024 Patient encounter procedure Cindy ZHU Work Phone: [facility] Start: 08-29-2024 End: 08-29-2024 Periodic preventive med est patient 18-39 yrs Cindy ZHU Work Phone: [facility] Comment on above: Well woman exam with routine gynecological exam; Screening, , for anatomic survey ([facility]); Exposure to STD; Need for maternal serum alpha-protein (MSAFP) screening ([facility]); Second trimester ([facility]); 18 weeks gestation of ([facility]) Start: 08-29-2024 End: 08-29-2024 ambulatory CINDY THOMAS Not Available Start: 08-29-2024 End: 08-29-2024 Bamboo flowsheet Cindy ZHU Work Phone: [facility] Start: 08-29-2024 End: 09-02-2024 Bamboo flowsheet Cindy ZHU Work Phone: [facility] Start: 08-29-2024 End: 09-02-2024 Clinisync Result Encounter Cindy ZHU Work Phone: [facility] Unsolicited Start: 08-29-2024 End: 08-31-2024 External Result Encounter Cindy ZHU Work Phone: [facility] Unsolicited Start: 08-02-2024 End: 08-02-2024 Bamboo flowsheet Arelis Mary Lou DO Work Phone: [facility] Start: 08-02-2024 End: 08-02-2024 Bamboo flowsheet Arelis Mary Lou DO Work Phone: [facility] Start: 08-02-2024 End: 08-02-2024 flow sheet Arelis Mary Lou DO Work Phone: [facility] Comment on above: Second trimester pre gnancy ([facility]); 14 weeks gestation of ([facility]) Start: 08-02-2024 End: 08-02-2024 ambulatory ARELIS MARY LOU Not Available Start: 07-24-2024 End: 07-24-2024 Clinisync Result Encounter Arelis Mary Lou DO Work Phone: [facility] External Department Unsolicited Start: 07-24-2024 End: 07-24-2024 Clinisync Result Encounter Arelis Mary Lou DO Work Phone: [facility] External Department Unsolicited Start: 07-05-2024 End: 07-05-2024 ambulatory ARELIS MARY LOU Not Available Start: 02-24-2023 End: 02-24-2023 ambulatory Jenn Gallegos Other [facility] Other Start: 02-24-2023 Encounter for genera l adult medical examination without abnormal findings Jenn Gallegos [facility] Start: 02-24-2023 Periodic preventive med est patient 18-39 yrs Jenn Gallegos [facility] Start: 05-06-2022 End: 05-06-2022 ambulatory Jenn Gallegos Other [facility] Other Start: 05-06-2022 Office outpatient vi sit 15 minutes Jenn Gallegos [facility] Start: 03-10-2022 End: 03-10-2022 ambulatory JENN GALLEGOS Facility: Start: 02-11-2022 End: 02-11-2022 ambulatory Mike Estrada Other [facility] Other Start: 02-11-2022 Encounter for genera l adult medical examination without abnormal findings Mike Nileansley [facility] [place] Start: 02-11-2022 Periodic preventive med est patient 18-39 yrs Mike Nileansley [facility] [place] Start: 12-10-2021 End: 12-11-2021 ambulatory JENN GALLEGOS Facility:[facility]1 Start: 11-03-2021 End: 11-05-2021 Evaluation and management of inpatient JENN GALLEGOS Facility:[facility] Start: 11-02-2021 Encounter for preprocedural laboratory examination DR ARELIS BARRETO [facility] Start: 10-31-2021 End: 11-01-2021 ambulatory JENN GALLEGOS [...] Facility :[facility]1 Start: 07-14-2021 End: 07-15-2021 ambulatory PATRICIA KELLY Facility:[facility]1 Start: 06-18-2021 End: 06-19-2021 ambulatory JENN GALLEGOS Facility:[facility] Start: 05-29-2021 End: 05-29-2021 ambulatory JENN GALLEGOS Facility:[facility] Start: 05-25-2021 End: 05-25-[address] ARELIS BARRETO Facility:[facility] Start: 04-27-2021 End: 04-28-2021 ambulatory JENN GALLEGOS Facility:[facility] Start: 03-27-2021 End: 03-28-[address] ARELIS BARRETO Facility:[facility] Start: 02-11-2021 End: 02-11-2021 ambulatory Jenn Gallegos Other [facility] Other Start: 02-11-2021 Encounter for genera l adult medical examination without abnormal findings Jenn Gallegos [facility] [place] Start: 02-11-2021 Periodic preventive med est patient 18-39 yrs Jenn Gallegos [facility] [place] Start: 02-11-2021 Telephone encounter Jenn Gallegos [facility] [place] Start: 01-03-2018 End: 01-03-2018 Patient encounter procedure Gosia Garcias Facility:[facility] Procedures Date Procedure Procedure Detail Performing Clinician Start: 11-05-2024 Urnls dip stick/tabl et rgnt non-auto w/o micrscp Arelis Mary Lou DO Work Phone: Start: 10-24-2024 Urnls dip stick/tabl et rgnt non-auto w/o micrscp Cindy ZHU Work Phone: Start: 10-08-2024 ALL CBC WITH AUTO DIFF Arelis Mary Lou DO Work Phone: Start: 09-26-2024 Urnls dip stick/tabl et rgnt non-auto w/o micrscp Arelis Mary Lou DO Work Phone: Start: 08-29-2024 RECURRENT VAGINITIS (HTRX) Cindy ZHU Work Phone: Start: 08-29-2024 Urnls dip stick/tabl et rgnt non-auto w/o micrscp Cindy ZHU Work Phone: Start: 08-29-2024 IGP,APTIMA HPV,AGE GDLN Cindy ZHU Work Phone: Start: 08-29-2024 Microscopic observat ion [Identifier] in Cervix by Cyto stain Arelis Mary Lou DO Work Phone: Start: 08-02-2024 Urnls dip stick/tabl et rgnt non-auto w/o micrscp Arelis Mary Lou DO Work Phone: Start: 07-24-2024 ALL CBC WITH AUTO DIFF Arelis Barreto DO Work Phone: Start: 07-24-2024 BOX TEST Arelis hill DO Work Phone: Start: 07-13-2023 Microscopic observat ion [Identifier] in Cervix by Cyto stain Arelis Barreto DO Work Phone: Start: 11-03-2021 Extraction of Produc ts of Conception, Low Cervical, Open Approach JENN GALLEGOS Plan of Treatment Date Care Activity Detail Author Start: 08-30-2027 Screening for malign ant neoplasm of cervix [facility] Start: 07-12-2026 Screening for malign ant neoplasm of cervix [facility] Start: 11-20-2024 End: 11-20-2024 Patient encounter procedure 11/20/2024 2:30 PM EDT Routine [facility] [address] [place] [address] Patrciia Kelly, LICENSED VETERINARY TECHNICIAN [address] [place] [id number] [facility] Start: 11-05-2024 End: 11-05-2024 Patient encounter procedure [facility] Comment on above: Arrived Start: 10-24-2024 End: 10-24-2024 Patient encounter procedure [facility] Comment on above: Arrived Start: 10-15-2024 Influenza vaccination [facility] Start: 09-26-2024 End: 09-26-2024 Patient encounter procedure [facility] Comment on above: Arrived Start: 09-26-2024 End: 09-26-2025 CBC panel - Blood by Automated count CBC Lab Routine Diabetes mellitus screening Expected: 09/26/2024 (Approximate), Expires: 09/26/2025 [facility] Work Phone: Comment on above: Expected: 09/26/2024 (Approximate), Expires: 09/26/2025 Start: 09-26-2024 End: 09-26-2025 Measurement of glucose 1 hour after glucose challenge for glucose tolerance test Glucose tolerance, 1 hour Lab Routine Diabetes mellitus screening Expected: 09/26/2024 (Approximate), Expires: 09/26/2025 [facility] Comment on above: Expected: 09/26/2024 (Approximate), Expires: 09/26/2025 Start: 09-13-2024 End: 09-13-2024 Professional / ancillary services management 09/13/2024 2:30 PM EDT Ancillary Procedure [facility] [address] [place] [address] [facility] Start: 08-29-2024 End: 08-29-2024 Patient encounter procedure 08/29/2024 3:30 PM EDT Routine [facility] [address] [place] [address] Cindy Thomas PA [address] [place], [place] [id number] Arrived [facility] Comment on above: Arrived Start: 08-29-2024 End: 09-29-2024 Alpha fetoprotein, maternal Alpha fetoprotein, maternal Lab Routine Need for maternal serum alpha-protein (MSAFP) screening ([facility]) Expected: 08/29/2024 (Approximate), Expires: 09/29/2024 [facility] Comment on above: Expected: 08/29/2024 (Approximate), Expires: 09/29/2024 Start: 08-29-2024 End: 11-29-2024 US for US OB 14+ weeks anatomy scan Imaging Routine Screening, , for anatomic survey ([facility]) Expected: 08/29/2024, Expires: 11/29/2024 [facility] Comment on above: Expected: 08/29/2024 , Expires: 11/29/2024 Start: 08-02-2024 End: 08-02-2024 Patient encounter procedure [facility] Comment on above: Arrived Start: 2020 Screening for malign ant neoplasm of cervix HPV/Cotest [facility] CBC W Auto Different ial panel - Blood CBC and differential Lab Routine Anemia, unspecified type Ordered: 11/05/2024 [facility] Work Phone: Comment on above: Ordered: 11/05/2024 CHLAMYDIA TRACHOMATI S (GENITO/STI) CHLAMYDIA TRACHOMATIS (GENITO/STI) Lab Routine Exposure to STD Ordered: 08/29/2024 [facility] Comment on above: Ordered: 08/29/2024 Cytology Cervical or vaginal smear or scraping study Pap Smear Pathology and Cytology Routine Well woman exam with routine gynecological exam Ordered: 08/29/2024 [facility] Work Phone: Comment on above: Ordered: 08/29/2024 Human papilloma viru s DNA [Presence] in Unspecified specimen by Probe with amplification HPV DNA probe, amplified Microbiology Routine Well woman exam with routine gynecological exam Ordered: 08/29/2024 [facility] Comment on above: Ordered: 08/29/2024 Neisseria gonorrhoea e DNA [Presence] in Unspecified specimen by THERON with probe detection Neisseria gonorrhea DNA probe, direct Lab Routine Exposure to STD Ordered: 08/29/2024 [facility] Comment on above: Ordered: 08/29/2024 SURESWAB(R) ADVANCED VAGINITIS PLUS, TMA SURESWAB(R) ADVANCED VAGINITIS PLUS, TMA Pathology and Cytology Routine Exposure to STD Ordered: 08/29/2024 [facility] Comment on above: Ordered: 08/29/2024 Immunizations Immunization Date Immunization Notes Care Provider Antionette ledezma 04-30-2020 COVID-19 Vaccine Pfi zer - Documentation Purposes Only Jenn Gallegos Other [facility] Other 04-09-2020 COVID-19 Vaccine Pfi zer - Documentation Purposes Only Jenn Gallegos Other [facility] Other 11-28-2019 influenza, injectabl e, quadrivalent, preservative free Jenn Gallegos Other [facility] Other 11-28-2019 influenza virus vaccine, unspecified formulation Arelis Mary Lou DO Work Phone: [facility] Payers Date Payer Category Payer [facility] BCBS [id number] 2023 Unknown [id number] 2022 Medicaid (Managed Care) [place] [id number] 2018 Private Health Insurance [id number] 2018 Self-pay 1990 Unknown [id number] 2.840.1.767837.3.579.2. 593 1990 Unknown [id number] 2.16840.1.768001.3.579.2. 593 1990 Unknown [id number] 2.16840.1.603054.3.579.2. 593 1990 Unknown [id number] 2.16840.1.505252.3.579.2. 593 1990 Unknown [id number] 2.16.840.1.242593.3.579.2. 593 1990 Unknown [id number] 2.16840.1.067350.3.579.2. 593 1990 Unknown [id number] 2.16.840.1.216088.3.579.2. 593 1990 Unknown [id number] 2.16.840.1.181241.3.579.2. 593 1990 Unknown [id number] 2.16.840.1.014049.3.579.2. 593 1990 Unknown [id number] 2.16.840.1.860450.3.579.2. 593 1990 Unknown [id number] 2.16.840.1.373865.3.579.2. 593 1990 Unknown [id number] 2.16.840.1.714928.3.579.2. 593 1990 Unknown [id number] 2.16.840.1.099785.3.579.2. 593 1990 Unknown [id number] 2.16.840.1.563562.3.579.2. 593 1990 Unknown [id number] 2.16.840.1.320825.3.579.2. 593 1990 Unknown [id number] 2.16.840.1.359486.3.579.2. 1259 1990 Unknown [id number] 2.16.840.1.979573.3.579.2. 1259 1990 Unknown [id number] 2.16.840.1.713827.3.579.2. 1259 1990 Unknown [id number] 2.16.840.1.509182.3.579.2. 1259 1990 Unknown [id number] 2.16.840.1.498592.3.579.2. 1259 1990 Unknown [id number] 2.16.840.1.881500.3.579.2. 1259 1990 Unknown [id number] 2.16.840.1.402113.3.579.2. 1259 1959 Blue Cross Blue Shield [id number] 2.16.840.1.713109.19 1959 Medicaid [id number] 1959 Unknown [id number] Unknown [id number] 2.16.840.1.943499.3.579.2. 531 Social History Date Type Detail Facility Unknown if ever smoked [facility] Other Sex Assigned At [facility] Other Tobacco smoking status ILIS Tobacco smoking consumption unknown [facility] Start: 05-04-2024 [facility] Start: 1990 Sex assigned at Not on file [facility] Clinical Notes 02-11-2021 to 11-05-2024 Patricia Kelly NP - 11/05/2024 10:00 AM MARKO Mcnally - 10/24/2024 3:00 PM Jackson Khan LPN - 09/26/2024 2:50 PM MARKO Mcnally - 08/29/2024 3:30 PM MARKO Mcnally - 08/02/2024 9:20 AM EDT Note Date & Type Note Facility 11-05-2024 History of Presen t illness Narrative Reason for Appointment: Patient ID: Arti Mckeon is a 34 y.o. female who presents for Routine Visit Patient presents today for Return OB appointment. MEDICATIONS Current Outpatient Medications Medication Instructions albuterol HFA (ProAir HFA) 90 mcg/act inhaler 1 puff, Every 4 hours PRN docusate sodium (COLACE) 100 mg, 2 times daily PRN iron polysaccharides (PROFE) 391.3 mg, Oral, Daily Multiple Vitamin (multivitamin) tablet 1 tablet, Daily [...] Asthma (HCC) Genital warts 2012 Pelvic pain 2006 HISTORY PAST MEDICAL HISTORY SOCIAL HISTORY Past Medical History: Diagnosis Date Allergies Asthma ([facility]) Genital warts 2012 Pelvic pain 2007 bilateral [...] Negative. Endocrine: Negative. Allergic/Immunologic: Negative. OBJECTIVE Objective: OBGyn Exam Vitals: Estimated body mass index is 28.89 kg/m as calculated from the following: Height as of 07/14/23: 5' 8 . Weight as of this encounter: 190 lb. BP: 112/70 Patient's last menstrual period was 05/08/2024. ASSESSMENT & PLAN ICD-10-CM 1. Anemia, unspecified type D64.9 CBC and differential 2. Third trimester ([facility]) Z34.93 POCT urinalysis dipstick manually resulted 3. 28 weeks gestation of ([facility]) Z3A.28 Return OB: Patient presents today for a routine obstetrics appointment. Patient is currently 28w3d . Patient states she is doing well but has complaints of being tired due to current . Patient has verbalizes frequent movement. labor precautions was discussed/given and patient was instructed to perform kick counts three times a day. Patient is currently taking iron and we will repeat a CBC today. Orders Placed This Encounter Procedures CBC and differential POCT urinalysis dipstick manually resulted Follow Up: Patient is to return to office in 2 week for routine OB appointment. Documented by Patricia Kelly NP on behalf of: Arelis Barreto DO documented in this encounter [facility] 10-24-2024 History of Presen t illness Narrative Reason for Appointment: Patient ID: Arti Mckeon is a 34 y.o. female who presents for Routine Visit Patient presents today for Return OB appointment. MEDICATIONS Current Outpatient Medications Medication Instructions albuterol HFA (ProAir HFA) 90 mcg/act inhaler 1 puff, Every 4 hours PRN docusate sodium (COLACE) 100 mg, 2 times daily PRN iron polysaccharides (PROFE) 391.3 mg, Oral, Daily Multiple Vitamin (multivitamin) tablet 1 tablet, Daily [...] reviewed. Vitals: Estimated body mass index is 28.74 kg/m as calculated from the following: Height as of 07/14/23: 5' 8 . Weight as of this encounter: 189 lb. BP: 100/60 Patient's last menstrual period was 05/08/2024. ASSESSMENT & PLAN ICD-10-CM 1. 26 weeks gestation of ([facility]) Z3A.26 POCT urinalysis dipstick manually resulted 2. Second trimester ([facility]) Z34.92 POCT urinalysis dipstick manually resulted 3. Anemia during in second trimester ([facility]) O99.012 Return OB: Patient presents today for a routine obstetrics appointment. Patient is currently 26w5d . Patient states she is doing well but has complaints of being tired due to current . Patient has verbalizes frequent movement. labor precautions was discussed/given and patient was instructed to perform kick counts three times a day. Orders Placed This Encounter Procedures POCT urinalysis dipstick manually resulted Follow Up: Patient is to return to office in 2 week for routine OB appointment. Documented by MARKO Phelps on behalf of: MARKO Phelps documented in this encounter [facility] 09-26-2024 History of Presen t illness Narrative Reason [...] (HCC) Genital warts 2012 Pelvic pain 2007 HISTORY PAST MEDICAL HISTORY [...] nursing note reviewed. Exam conducted with a textile knitter present. Vitals: Estimated body mass index is 28.28 kg/m as calculated from the following: Height as of 07/14/23: 5' 8 . Weight as of this encounter: 186 lb. BP: 118/70 Patient's last menstrual period was 05/08/2024. ASSESSMENT & PLAN ICD-10-CM 1. Diabetes mellitus screening Z13.1 CBC Glucose tolerance, 1 hour CBC Glucose tolerance, 1 hour 2. Second trimester ([facility]) Z34.92 POCT urinalysis dipstick manually resulted 3. 22 weeks gestation of ([facility]) Z3A.22 Patient presents today for a routine obstetrics appointment. Patient is currently 22w5d with a Estimated Date of Delivery: 01/25/25. Pt given glucola and cbc orders to have obtained. Pt to return in 4 weeks Documented by Maribell Khan LPN on behalf of: Arelis Barreto DO documented in this encounter [facility] 08-29-2024 History of Presen t illness Narrative [...] Past Medical History: Diagnosis Date Allergies Asthma ([facility]) Genital warts 2012 Pelvic pain 2007 HISTORY PAST MEDICAL HISTORY [...] nursing note reviewed. Exam conducted with a textile knitter present. Vitals: Estimated body mass index is 27.06 kg/m as calculated from the following: Height as of 07/14/23: 5' 8 . Weight as of this encounter: 178 lb. BP: 122/70 Patient's last menstrual period was 05/08/2024. ASSESSMENT & PLAN ICD-10-CM 1. Well woman exam with routine gynecological exam Z01.419 Pap Smear HPV DNA probe, amplified 2. Screening, , for anatomic survey ([facility]) Z36.89 OB 14+ weeks anatomy scan 3. Exposure to STD Z20.2 SURESWAB(R) ADVANCED VAGINITIS PLUS, TMA CHLAMYDIA TRACHOMATIS (GENITO/STI) Neisseria gonorrhea DNA probe, direct 4. Need for maternal serum alpha-protein (MSAFP) screening ([facility]) Z36.1 Alpha fetoprotein, maternal Alpha fetoprotein, maternal 5. Second trimester ([facility]) Z34.92 6. 18 weeks gestation of ([facility]) Z3A.18 POCT urinalysis dipstick manually resulted Return [...] of: MARKO Phelps documented in this encounter [facility] 08-02-2024 History of Presen t illness Narrative [...] ASSESSMENT & PLAN ICD-10-CM 1. Second trimester ([facility]) Z34.92 POCT urinalysis dipstick manually resulted 2. 14 weeks gestation of ([facility]) Z3A.14 Return OB: Patient presents today for [...] Arelis Barreto DO documented in this encounter [facility] 02-24-2023 Evaluation note Encounter Date Diagnosis Assessment [...] persistent asthma without complication (ICD-10 - J45.40) [facility] Other 03-23-2023 Evaluation note* Encounter Date Diagnosis [...] would consider doing a tendon sheath injection. [facility] Other 12-29-2022 Evaluation note* Encounter Date Diagnosis [...] issue arises. Jan, Anxiety (ICD-10 - F41.9) [facility] Other 09-20-2022 NoteOPERATIVE NOTE OPERATION DATE: 11/03/2021 PROCEDURE: Repeat low transverse section. PREOPERATIVE DIAGNOSIS: 1. Intrauterine 39 weeks. 2. Previous . POSTOPERATIVE DIAGNOSIS: 1. Intrauterine 39 weeks. 2. Previous . ANESTHESIA: Spinal with Duramorph. SURGEON: Arelis Barreto D.O. PATIENT CARE TECHNICIAN: JESSE Cruz URINE OUTPUT: Yellow and clear. [...] to the Recovery Room in stable condition.[facility] [id number] Note DISCHARGE SUMMARY DISCHARGE DATE: 11/13/2021 PRIMARY [...] pain free and no longer on narcotics.[facility] [id number] Evaluation note * Encounter Date Diagnosis Assessment [...] persistent asthma without complication (ICD-10 - J45.40) [facility] Other Evaluation noteNo InformationNort OLX Other Evaluation note* Diagnosis Second trimester ([facility]-HCC) state, incidental 14 weeks gestation of ([facility]) [facility] Diagnosis Well woman exam with routine gynecological exam Routine gynecological examination Screening, , for anatomic survey ([facility]) Encounter for anatomic survey Exposure to STD Need for maternal serum alpha-protein (MSAFP) screening ([facility]) Second trimester ([facility]) state, incidental 18 weeks gestation of ([facility]) [facility] encounter [facility]* Diagnosis Diabetes mellitus screening Screening for diabetes mellitus Second trimester ([facility]) state, incidental 22 weeks gestation of ([facility]) [facility]* Diagnosis 26 weeks gestation of ([facility]) Second trimester ([facility]) state, incidental Anemia during in second trimester ([facility]) [facility] encounter [facility]* Diagnosis Anemia, unspecified type- Primary Third trimester ([facility]) state, incidental 28 weeks gestation of ([facility]) documented [facility] this encounter [facility] Narrative - Reported* Type Description Date Medical History stomach issues Medical History Asthma Medical History low iron Surgical History stomach surgery Surgical History C section Hospitalization History childbirths [facility] Other Summary Purpose Family History No Family History Records FoundNo Family History Records FoundNo Family History Records Found Advance Directives No Advanced Directives Records FoundNo Advanced Directives Records FoundNo Advanced Directives Records Found Additional Source Comments INFORMATION SOURCE (unrecogn ized section and content) DATE CREATED AUTHOR 03/20/2018 [facility] DATE CREATED AUTHOR AUTHOR'S ORGANIZ ATION 03/16/2022 [facility] DATE CREATED AUTHOR AUTHOR'S ORGANIZ ATION 10/27/2024 [facility] EPIC REASON FOR VISIT (unrecogniz [...] BE BASED ON THE PRIMARY CLINICAL RECORDS. [facility]. provides no warranty or guarantee of the accuracy or completeness of information in this document.
[2024-11-05 11:34] LABS: Hematocrit 32.0 % (36.0-48.0); Hemoglobin 10.7 g/dL (12.0-16.0); Immature Granulocytes Abs Auto 0.24 10^3/uL (0.00-0.03); Immature Granulocytes Pct Auto 1.9 % (0.0-0.5); Lymphocytes Absolute Auto 1.5 10^3/uL (1.2-3.8); Mean Corpuscular HGB Conc 33.4 g/dL (29.9-35.2); Mean Corpuscular Hemoglobin 30.9 pg (26.7-34.0); Mean Corpuscular Volume 92.5 fL (81.0-99.0); Platelet Count 292 10^3/uL (150-450); Red Blood Count 3.46 10^6/uL (4.20-5.40); White Blood Count 12.4 10^3/uL (4.0-11.0)
== END 2024-11-05 10:56 | disposition home or self-care (01) ==
LOC: LAB 10:56
PROVIDERS: Visit Provider Nurse Practitioner Family
DX: D64.9 Anemia, unspecified (principal)
CPT/HCPCS: 36415; 85025

== ENCOUNTER 2024-12-05 13:22 | Observation (INO) | payer BC, OTHER, SELFPAY ==
--- OUTSIDE RECORDS SUMMARY | 2023-12-20 04:45 | XMS_ITS ---
Author Organization [facility] vices Address [address] [place] [place], [place] [id number] Care Team Providers Care Highway Commissioner Name Role Phone Alma Jolley Unavailable [phone] REASON FOR VISIT Recall (A) 33 Social History Sex Assigned At : Social History Observation Description Sex Assigned At Female Encounters Encounter Location Date Provider Diagnosis Dental Main [address] [place], [place] [phone] 12/20/2023 Alma Jolley Plan Of Treatment No Information Progress Notes * Arti MCKEON NDOB:[birth year] (34 yo F)Acc No.[id number]:12/20/2023 Patient:?Arti MCKEON :?Alma Jolley DDSDOB:1990???Age:33 Y ???Sex:FemaleDate:12/20/2023hone:[phone]:[address] [place], [place] [id number] Subjective: * Chief Complaints: * 1 . Recall (A) 33. * Medical History: Objective: * Vitals: Assessment: Plan: * Treatment: * Billing Information: * Visit Code: * Procedure Codes: * Electronic signature of Alma Jolley DDS on 12/05/2024 at 01:27 PM EDT Sign off status: Pending * Provider: Roxana Jolley DDS Date: 02/18/2023 Generated for Printing/Faxing/eTransmitting on:?12/05/2024 01:27 PM EDT
--- OUTSIDE RECORDS SUMMARY | 2024-12-04 13:30 | XMS_ITS | Encounter Summary ---
Author Organization [facility] Address [address] [place] [address] Care Team Providers Care Valet Service Attendant Name Role Phone Unavailable Primary Care Provider Unavailabl e Encounter Details DateTypeDepartmentCare Team (Latest Contact Info)Wkofoecwsvo61/21/2025 1:30 PM EDTAncillary Procedure [facility] [address] [place] [address] size inconsistent with dates ([facility]) Social History Tobacco UseTypesPacks/DayYears UsedDateSmoking Tobacco: Never Assessed Estimated Date of RemrdrvsTiezqtxaDki07/12/2025Based on UltrasoundSex and Gender InformationValueDate RecordedSex Assigned at BirthNot on fileLegal SexFemale 04/28/2022 6:54 PM EDTGender IdentityNot on fileSexual OrientationNot on file documented as of this encounter Plan of Treatment DateTypeDepartmentCare Team (Latest Contact Info)Fyadbxzbezc87/03/2025 1:50 PM ESTRoutine [facility] [address] [place] [address] Cindy Silva PA [address] [place], [place] [id number] documented as of this encounter Procedures Procedure NamePriorityDate/TimeAssociated DiagnosisCommentsUS OB FOLLOW UP TRANSABDOMINAL SJAEPMXHXbcaehi64/21/2025 1:52 PM EDT size inconsistent with dates ([facility]) documented in this encounter Results * US [...] BY: Gerardo Cosme MD Authorizing ProviderResult TypeResult StatusKrbulmaro Kelly NPIMG OB US PROCEDURESFinal Result documented in this encounter Visit Diagnoses Diagnosis size inconsistent with dates ([facility]) documented in this encounter
--- OUTSIDE RECORDS SUMMARY | 2024-12-04 14:10 | XMS_ITS | Encounter Summary ---
Author Organization [facility] Address [address] [place] [address] Care Team Providers Care Salvage Mend Worker Name Role Phone Unavailable Primary Care Provider Unavailabl e Reason for Visit * ReasonCommentsRoutine Visit Encounter Details DateTypeDepartmentCare Team (Latest Contact Info)Ldshtepchxr96/21/2025 2:10 PM EDTRoutine MOI Ag OBGYN [address] [place] [address] Jose Barreto DO [address] [place], [place] [phone] 32 weeks gestation of ([facility]); Third trimester ([facility]); Anemia, unspecified type Social History Tobacco UseTypesPacks/DayYears UsedDateSmoking Tobacco: Never Assessed Estimated Date of EvegjnayDjpwqupcMhb80/12/2025Based on UltrasoundSex and Gender InformationValueDate RecordedSex Assigned at BirthNot on fileLegal SexFemale 04/28/2022 6:54 PM EDTGender IdentityNot on fileSexual OrientationNot on file documented as of this encounter Last Filed Vital Signs Vital SignReadingTime TakenCommentsBlood Sxxebeue451/6012/04/2024 2:18 PM EDT Pulse--Temperature--Respiratory Rate--Oxygen Saturation--Inhaled Oxygen Concentration--Txoglu87.2 kg (194 lb 6.4 oz)12/04/2024 2:18 PM EDTHeight--Body Mass Index29.56007/14/2023 11:01 AM EDTdocumented in this encounter Plan of Treatment DateTypeDepartmentCare Team (Latest Contact Info)Nwicqorlbxy99/03/2025 1:50 PM ESTRoutine [facility] [address] [place] [phone] Cindy Silva PA [address] [place] [address] documented as of this encounter Procedures Procedure NamePriorityDate/TimeAssociated DiagnosisCommentsPOCT URINALYSIS MYTCBFHFYfuqnwc73/21/2025 2:09 PM EDT 32 weeks gestation of ([facility]) Third trimester ([facility]) documented in this encounter Results * (ABNORMAL) POCT urinalysis dipstick manually resulted (12/04/2024 2:09 PM EDT) ComponentValueRef RangeTest MethodAnalysis TimePerformed AtPathologist SignatureColor, UAAmberClarity, UAClearGlucose, UANegativeNegative - 2000(110) ++++ mg/dLBilirubin, UANegativeNegative - 4(70) +++ mg/dLKetones, UANegative Negative - 160(16) ++++ mg/dLSpec Grav, UA1.0301 - 1.03Blood, UANegative Negative - 50 Guy/mcLpH, UA6.05 - 9Protein, UAPositiveNegative - 2000(20) ++++ mg/dLUrobilinogen, UA1.00.2 - 12 mg/dLLeukocytes, UANegativeNegative - 500+++ Corona/mcLNitrite, UANegativeNegative - PositiveSpecimen (Source)Anatomical Location / LateralityCollection Method / VolumeCollection TimeReceived Time Urine12/04/2024 2:09 PM EDT Narrative Authorizing ProviderResult TypeResult StatusCorey Mary Lou DOPOINT OF CARE TEST ENTER/EDIT ORDERABLESFinal Result documented in this encounter Visit Diagnoses Diagnosis 32 weeks gestation of ([facility]) Third trimester ([facility]) state, incidental Anemia, unspecified type documented in this encounter
--- OUTSIDE RECORDS SUMMARY | 2024-12-05 13:28 | XMS_ITS | Clinical Summary ---
Author Organization [facility] Healthcare Address [address] [place] [address] Care Team Providers Care Snuff Grinder Name Role Phone Unavailable Primary Care Provider Unavailabl e Allergies Active AllergyReactionsCriticalityNoted DateCommentsPenicillin G008/29/2024 Other Reaction(s): Unknown WhojomuwtocMvnnIbi62/26/2024Sulfa CcswoycznzkPddab62/26/2024 Other Reaction(s): Unknown Medications MedicationSigDispense QuantityRefillsLast FilledStart DateEnd DateStatus albuterol HFA (ProAir HFA) 90 mcg/act inhaler Inhale 1 puff every 4 (four) hours if needed for wheezingActive docusate sodium (Colace) 100 MG capsule Take 100 mg by mouth as needed in the morning and 100 mg as needed in the evening for constipation.Active Multiple Vitamin (multivitamin) tablet Take 1 tablet by mouth DailyActive polyethylene glycol, PEG, 3350 (Miralax) 17 g packet Take by mouthActive ProFe 391.3 (180 Fe) MG capsule Take 1 capsule by mouth Daily5Active iron polysaccharides (ProFe) 391.3 (180 Fe) MG capsule Indications:Anemia during in second trimester ([facility])Take 1 capsule (391.3 mg) by mouth Daily 30 capsule 605011/08/2024Expired Encounters DateTypeDepartmentCare VcecQwlgvrqurmj40/21/2025 2:10 PM EDTRoutine [facility] [address] [place] [address] [place] [address] Jose Barreto DO 32 weeks gestation of ([facility]); Third trimester ([facility]); Anemia, unspecified type12/04/2024 1:30 PM EDTAncillary Procedure [facility] [address] [facility] [place] [phone] size inconsistent with dates ([facility])12/03/20244050Qsbjwg09/07/2025 2:30 PM EDTRoutine [facility] [address] [facility] [place] [phone] Patricia Kelly NP size inconsistent with dates ([facility]) (Primary Dx); Third trimester ([facility]); 30 weeks gestation of ([facility])11/20/2024amboo flowsheet [facility] CASTA[facility]EDA [address] [place] [address] [place] [address] Patricia Kelly NP 11/20/20246285Iogsvk43/22/2025 10:00 AM EDTRoutine [facility] CASTA[facility]EDA [address] [place] [address] [place] [phone] Jose Barreto DO Anemia, unspecified type (Primary Dx); Third trimester ([facility]); 28 weeks gestation of ([facility])5Clinisync Result Encounter [facility] External Department Unsolicited Patricia Kelly NP 11/05/2024amboo flowsheet [facility] [address] [facility] [place] [address] Jose Barreto DO 11/05/20242939Obzybn57/10/2025 3:00 PM EDTRoutine [facility] [address] [facility] [place] [address] Cindy Silva, PA 26 weeks gestation of ([facility]); Second trimester ([facility]); Anemia during in second trimester ([facility])10/24/2024amboo [place] [address] Cindy Silva PA 10/24/20244297Ugsvul36/26/2025[place] [address] Jose Barreto, 10/08/2024linisync Result Encounter [facility] External Department Unsolicited Jose Barreto, 09/26/2024 2:50 [place] [address] Jose Barreto, DO Diabetes mellitus screening; Second trimester ([facility]); 22 weeks gestation of ([facility])09/26/2024amboo [place] [address] Jose Barreto, 09/26/20242535Wvbiml73/31/2025 2:30 PM EDTAncillary [place] [phone] Screening, , for anatomic survey ([facility])09/13/2024Travel 09/05/2024[place] [address] Arminda Bey LPN from Last 3 Months Family History Medical HistoryRelationNameCommentsCerebrovascular accidentMaternal Grandfather RelationNameStatusCommentsMaternal Grandfather Social History Tobacco UseTypesPacks/DayYears UsedDateSmoking Tobacco: Never Assessed Estimated Date of LgutktmwCeaqabkkZwv83/12/2025Based on UltrasoundSex and Gender InformationValueDate RecordedSex Assigned at BirthNot on fileLegal SexFemale 04/28/2022 6:54 PM EDTGender IdentityNot on fileSexual OrientationNot on file Last Filed Vital Signs Vital SignReadingTime TakenCommentsBlood Mjguwywk963/6012/04/2024 2:18 PM EDT Pulse--Temperature--Respiratory Rate--Oxygen Saturation--Inhaled Oxygen Concentration--Mejyts05.2 kg (194 lb 6.4 oz)12/04/2024 2:18 PM JXZRseplh343.7 cm (5' 8 )07/14/2023 11:01 AM EDTBody Mass Index29.56007/14/2023 11:01 AM EDT Plan of Treatment DateTypeDepartmentCare Team (Latest Contact Info)Gqqfltwseur05/03/2025 1:50 PM ESTRoutine [facility] [address] [facility] [place] [address] Cindy Silva PA [address] [place] [address] Health MaintenanceDue DateLast DoneCommentsHPV/Gnuync6309/21/2020Influenza Vaccine (#1)Cervical Cancer Pnlpltavi84/16/2028Pap Smear08/30/2027 08/29/2024, 07/13/2023, 03/10/2022 Procedures Procedure NamePriorityDate/TimeAssociated DiagnosisCommentsPOCT URINALYSIS ZBRLXBGPQsqkkhv62/21/2025 2:09 PM EDT 32 weeks gestation of ([facility]) Third trimester ([facility]) US OB FOLLOW UP TRANSABDOMINAL ZFGAWPMBGebrmbl18/21/2025 1:52 PM EDT size inconsistent with dates ([facility]) POCT URINALYSIS PDVALLTVFudezmv82/07/2025 2:37 PM EDT Third trimester ([facility]) ALL CBC WITH AUTO UZBJNovqywv19/22/2025 11:16 AM EDT POCT URINALYSIS OSGALYYGHadqubc98/22/2025 10:14 AM EDT Third trimester ([facility]) POCT URINALYSIS BMOWBNKJDembhxl55/10/2025 3:11 PM EDT 26 weeks gestation of ([facility]) Second trimester ([facility]) GLUCOSE 1 YILNTyzqeoc64/25/2025 2:13 PM EDT ALL CBC WITH AUTO RDFBAmoglwv09/25/2025 2:13 PM EDT POCT URINALYSIS TCCHWVFYGthizfm64/13/2025 3:04 PM EDT Second trimester ([facility]) US OB 14+ WEEKS ANATOMY KHSNHngsqnr50/31/2025 3:50 PM EDT Screening, , for anatomic survey ([facility]) PAP LMNBWWospjes85/16/2025 12:00 AM EDTfrom Last 3 Months or Most Recently Relevant to Health Maintenance Results * (ABNORMAL) POCT urinalysis dipstick manually resulted (12/04/2024 2:09 PM EDT) Only the most recent of5 resultswithin the time period is included. ComponentValueRef RangeTest MethodAnalysis TimePerformed AtPathologist Signature Color, UAAmberClarity, UAClearGlucose, UANegativeNegative - 2000(110) ++++ mg/dL Bilirubin, UANegativeNegative - 4(70) +++ mg/dLKetones, UANegativeNegative - 160(16) ++++ mg/dLSpec Grav, UA1.0301 - 1.03Blood, UANegativeNegative - 50 Guy/mcLpH, UA6.05 - 9Protein, UAPositiveNegative - 2000(20) ++++ mg/dL Urobilinogen, UA1.00.2 - 12 mg/dLLeukocytes, UANegativeNegative - 500+++ Corona/mcL Nitrite, UANegativeNegative - PositiveSpecimen (Source)Anatomical Location / LateralityCollection Method / VolumeCollection TimeReceived FaphDvmeh35/21/2025 2:09 PM EDT Narrative Authorizing ProviderResult TypeResult StatusCorey Mary Lou DOPOINT OF CARE TEST ENTER/EDIT ORDERABLESFinal Result * US OB follow up transabdominal approach [...] BY: Gerardo Cosme MD Authorizing ProviderResult TypeResult StatusPatricia Kelly NPCHARLES RIVER HOSPITAL US PROCEDURESFinal Result * (ABNORMAL) ALL CBC WITH AUTO DIFF (11/05/2024 11:16 AM EDT) Only the most recent of2 resultswithin the time period is included. ComponentValueRef RangeTest MethodAnalysis TimePerformed AtPathologist Signature TBH WBC12.4(H)4.0 - 11.0 10 3/uLTBHTBH RBC3.46(L)4.20 - 5.40 10 6/uLTBHTBH HGB 10.7(L)12.0 - 16.0 g/dLTBHTBH HCT32.0(L)36.0 - 48.0 %TBHTBH MCV92.581.0 - 99.0 fLTBHTBH MCH30.926.7 - 34.0 pgTBHTBH MCHC33.429.9 - 35.2 g/dLTBHTBH RDW12.711.0 - 15.0 %TBHTBH FUM980737 - 450 10 3/uLTBHTBH MPV9.59.5 - 13.5 fLTBHNEUTROPHILS PERCENT AUTO78.1(H)43.0 - 75.0 %TBHLYMPHOCYTES PERCENT AUTO12.3(L)20.5 - 60.0 % TBHMONOCYTES PERCENT AUTO6.21.7 - 12.0 %TBHTBH EO %1.20.9 - 7.0 %TBHBASOPHILS PERCENT AUTO0.30.2 - 2.0 %TBHIMMATURE GRANULOCYTES PCT AUTO1.9(H)0.0 - 0.5 %TBH NEUTROPHILS ABSOLUTE AUTO9.7(H)1.4 - 6.5 10 3/uLTBHLYMPHOCYTES ABSOLUTE AUTO1.5 1.2 - 3.8 10 3/uLTBHMONOCYTES ABSOLUTE AUTO0.80.3 - 0.8 10 3/uLTBHTBH EO #0.20.0 - 0.7 10 3/uLTBHBASOPHILS ABSOLUTE AUTO0.00.0 - 0.1 10 3/uLTBHIMMATURE GRANULOCYTES ABS AUTO0.24(H)0.00 - 0.03 10 3/uLTBHSpecimen (Source)Anatomical Location / LateralityCollection Method / VolumeCollection TimeReceived Time 11/05/2024 11:16 AM EDT11/05/2024 11:22 AM EDT Narrative CLINISYNC - 11/05/2024 11:37 AM EDT Authorizing ProviderResult TypeResult StatusPatricia Kelly NPCLINISYNCFinal ResultPerforming OrganizationAddressCity/State/ZIP CodePhone Number [facility]NC [facility] * GLUCOSE 1 HOUR (10/08/2024 2:13 PM EDT)ComponentValueRef RangeTest Method Analysis TimePerformed AtPathologist SignatureGLUCOSE 1 AFWI647<130 mg/dLTBH Specimen (Source)Anatomical Location / LateralityCollection Method / Volume Collection TimeReceived Time10/08/2024 2:13 PM EDT10/08/2024 2:25 PM EDT Narrative R[facility] - 10/08/2024 2:52 PM EDT Authorizing ProviderResult TypeResult StatusCorey Mary Lou DOLAB BLOOD ORDERABLES Final ResultPerforming OrganizationAddressCity/State/ZIP CodePhone Number [facility] * US OB 14+ weeks anatomy scan (09/13/2024 3:50 PM EDT)Anatomical Region LateralityModalityBodyUltrasoundSpecimen (Source)Anatomical Location / LateralityCollection Method / VolumeCollection TimeReceived Time09/14/2024 8:27 AM EDT Narrative 09/14/2024 8:27 AM EDT EXAM: US OB 14+ WEEKS ANATOMY SCAN HISTORY: ?? anatomy. COMPARISON: ??Ob ultrasound 07/05/2024. TECHNIQUE: Two-dimensional transabdominal grayscale ultrasound imaging of the pelvis was performed. FINDINGS: Gestation: Single Presentation: ??Cephalic ?? Cardiac Activity: ??153 beats per minute Placental Location: ??Anterior with no sonographic abnormalities identified. Distance from Placental Tip to Cervix: ??4.9 cm Cervical Length: ??4.5 cm Amniotic Fluid: Appears adequate MEASUREMENTS: BPD: ??4.6 cm ??EGA: ??19 weeks 6 days HC: ??16.9 cm ??EGA: ??19 weeks 4 days AC: ??15.9 cm ??EGA: ??21 weeks 0 days FL: ??3.5 cm ??EGA: ??21 weeks 0 days HC/AC Ratio: ??1.07 The gestational age by today's ultrasound is 20 weeks 3 days (+/- 10 days gestation). Estimated Weight: ??380 grams, +/- 57 grams ( 0 lb 13 oz). Weight Percentile for gestational age: ??43 % ANATOMY C-Spine: Unremarkable T-Spine: Unremarkable L-Spine: [...] Single, live intrauterine gestation 20 weeks, 6 ??days by LMP. Today's ultrasound measurements correlate with a gestational age of 20 weeks 3 days. Estimated weight is 380 grams, +/- 57 grams ( 0 lb 13 oz) which correlates to 43 %. BRO by today's ultrasound is 01/28/2025. 2. Unremarkable ultrasound of the anatomy. Interpreted by: Electronically signed by CHRIS VILLAGOMEZ II, ?? , PHD at 14-Sep-2024 08:26:06 AM [facility] Procedure Note Chris Villagomez MD - 09/14/2024 EXAM: US OB 14+ [...] signed by CHRIS VILLAGOMEZ II, MD, PHD [id number] 08:26:06 AM [facility] Authorizing ProviderResult TypeResult StatusCindy BYERS OB US PROCEDURES Final Result * Pap Smear (08/29/2024 12:00 AM EDT)Specimen (Source)Anatomical Location / LateralityCollection Method / VolumeCollection TimeReceived TimeSwabCervical swab / Unknown Narrative Authorizing ProviderResult TypeResult StatusFazio Nurse [facility] ObLAB CYTOLOGY ORDERABLESFinal ResultPerforming OrganizationAddressCity/State/ZIP CodePhone Number EXTERNAL LAB from Last 3 Months or Most Recently Relevant to Health Maintenance Insurance
--- OUTSIDE RECORDS SUMMARY | 2024-12-05 13:28 | XMS_ITS | Clinical Summary ---
Author Organization [facility] Address [address] [place] [address] Phone Care Team Providers Care Policewoman Name Role Phone Unavailable Primary Care Provider Unavailabl e Social History Tobacco UseTypesPacks/DayYears UsedDateSmoking Tobacco: Never Assessed CommentsUnknownSex and Gender InformationValueDate RecordedSex Assigned at Not on fileLegal PyaIaqjxw56/26/2022 11:36 AM ESTGender IdentityNot on file Sexual OrientationNot on file Plan of Treatment Not on file
--- OUTSIDE RECORDS SUMMARY | 2024-12-05 13:28 | XMS_ITS | Encounter Summary ---
Author Organization [facility] Address [address] [place] [address] Care Team Providers Care Clinical Research Coordinator Name Role Phone Unavailable Primary Care Provider Unavailabl e Encounter Details DateTypeDepartmentCare Team (Latest Contact Info)Oehjyfcgjqr93/20/2025Travel Social History Tobacco UseTypesPacks/DayYears UsedDateSmoking Tobacco: Never Assessed Estimated Date of RvnpvvrpOnflxqtwXay01/12/2025Based on UltrasoundSex and Gender InformationValueDate RecordedSex Assigned at BirthNot on fileLegal SexFemale 04/28/2022 6:54 PM EDTGender IdentityNot on fileSexual OrientationNot on file documented as of this encounter Plan of Treatment DateTypeDepartmentCare Team (Latest Contact Info)Xxtxzubnoyh26/03/2025 1:50 PM ESTRoutine [facility] [address] [place] [address] Cindy Silva PA [address] [facility] [address] [facility] [address] [place], [facility] documented as of this encounter Visit Diagnoses Not on filedocumented in this encounter
--- OUTSIDE RECORDS SUMMARY | 2024-12-05 13:29 | XMS_ITS | Patient Health Record ---
Author Organization [facility]ices Address [address], [place] [address] Care Team Providers Care Director Mobile Media [employer] Name Role Phone AsuncionJeremiasJimy Alma Unavailable [phone] Mya Marte Unavailable [phone] Allergies Allergen (clinical drug ingredient) Drug/Non Drug Allergy documented on EMR Reaction Allergy Type Onset Date Status PenicillinUnknownDrug AllergyActiveSubstance with sulfonamide structure and antibacterial mechanism of action (substance)Sulfa AntibioticsUnknownDrug AllergyActive Reason For Referral No Information Social History Sex Assigned At : Social History Observation Description Sex Assigned At Female Tobacco Use/Smoking Question Answer Notes Additional Findings: Tobacco User Light cigarett e smoker ((1-9 cigs/day) Problems Problem Type SNOMED Code ICD Code Onset Dates Problem Status W/U Status Risk Notes Problem Tobacco user (323713118) Cigaret te nicotine dependence without complication (F17.210) ActiveconfirmedProblemBody mass index 25-29 - overweight (268486782)BMI 25.0- 25.9,adult (Z68.25)Activeconfirmed Vital Signs Heart Rate 62 /min 02/06/2024 Height-cm172.72 cm02/06/2024lood pressure sbmxyuuvr04 mm Hg02/06/2024Weight-kg 74.84 kg02/06/20245354Uzwval18 in02/06/2024lood pressure mgadwhqv339 mm Hg 02/06/20246250Logmpn078 lbs104/08/2023BMI25.09 kg/m202/06/2024 Encounters Encounter Location Date Provider Diagnosis Dental Main [address], [place] [id number] 02/06/2024 Mya Marte Encounter for scre ening for dental disorders Z13.84 and Encounter for dental examination and cleaning with abnormal findings Z01.21 Assessments Encounter Date Diagnosis (ICD Code) Assessment Notes Treatment Notes Treatment Clinical Notes Section Notes 02/06/2024 Encounter for screening for dent al disorders (ICD-10 - Z13.84) 02/06/2024Encounter for dental examination and cleaning with abnormal findings (ICD-10 - Z01.21) Plan Of Treatment No Information Insurance Providers Payer Name Payer Address Payer Phone Subscriber Number Group Number Insured Name Patient Relationship to Insured Coverage Start Date Coverage End Date Jennifer Peng [facility] [address] [place] [address] [id number] Gibson Mckeon - patient is the gnnvzos48/01/2023DMedicaid CFC after [place] [address] [place], [place] [id number], [employer] - patient is the [id number] 2022
--- OUTSIDE RECORDS SUMMARY | 2024-12-05 13:33 | XMS_ITS | CCD ---
Author Organization [facility] CliniSyia Care Team Providers Care Rn Bariatric Name Role Phone Gosia Garcias Primary Care [...] Admitting Unavailable PAY, DR MONTAÑO Consulting Unavailable JENN GALLEGOS Primary Care Unavailable [...] Consulting Unavailable ROSY, JENN Primary Care Unavailable MAURISIO KELLYA Admitting Unavailable PATRICIA KELLY Consulting Unavailable PATRICIA KELLY Attending Unavailable ROSY, JENN Primary Care Unavailable ROBIN, PATRICIA Admitting Unavailable ROBIN, PATRICIA Consulting Unavailable ROBIN, PATRICIA Attending Unavailable ROBIN, PATRICIA Consulting Unavailable ROBIN, PATRICIA Attending Unavailable ROSYJENN Primary Care Unavailable ROBIN, PATRICIA Admitting Unavailable MARY LOU, DR INFANTE Attending Unavailable MARY LOU, DR INFANTE Admitting Unavailable MARY LOU, DR INFANTE Consulting Unavailable [facility] Primary Care Unavailable ZIEBER, DR FRANCIA Hyde Consulting Unavailable MARY LOU, DR INFANTE Attending Unavailable MARY LOU, DR INFANTE Admitting Unavailable [facility], DR ASKEW Primary Care Unavailable MARY LOU, DR INFANTE Consulting Unavailable ROSY, JENN Primary Care Unavailable MARY LOU, DR INFANTE Attending Unavailable MARY LOU, DR INFANTE Admitting Unavailable [facility], DR KASEY Horvath Consulting Unavailable MARY LOU, DR INFANTE Consulting Unavailable MARY LOU, DR INFANTE Attending Unavailable MARY LOU, DR INFANTE Admitting Unavailable MARY LOU, DR INFANTE Consulting [facility]available [facility] Unavailable ZIEBER, DR FRANCIA Hyde Consulting Unavailable Mike Estrada Unavailable Unavailable Primary Care Provider Unavailabl e PATRICIA KELLY Attending Unavailable MARY LOU, ARELIS Attending Unavailable CINDY THOMAS Attending Unavailable MARY LOU, ARELIS Attending Unavailable CINDY THOMAS Referring Unavailable CINDY THOMAS Attending Unavailable MARY LOU, ARELIS Attending Unavailable Allergies Allergy ClassificationReported Allergen(s)Allergy TypeDate of OnsetReaction(s) Facility (5 sources)Sulfacetamide / SulfurDrug AllergyAdventHealth Waterman Estadeboda Other (1 source)PenicillinsDrug allergy (disorder)49-65-6521YjhN[facility] (1 source)Sulfonamides (Antibiotic)Drug allergy (disorder)44-18-9285SejNationwide [facility] (20 sources)PenicillinsDrug Vkxtknkteuy71-56-0282HdywZWJZ Healthcare (20 sources)Sulfonamides (Antibiotic)Drug Natmodspowm14-37-8742WefilPVFE Healthcare (18 sources)Penicillin GDrug Jbawyyc74-32-1454BYDX Healthcare Medications Current Medications MedicationDrug Class(es)DatesSig (Normalized)Sig (Original)[id number] 200 actuat albuterol 0.09 mg/actuat metered dose inhaler (20 sources)beta2-Adrenergic Agonisttake 1 puff(s) by inhalation every four hours for wheezingalbuterol HFA (ProAir HFA) 90 mcg/act inhaler Inhale 1 puff every 4 (four) hours if needed for wheezing Activetake 2 puff(s) by inhalation every six hours as neededVentolin HFA 108 (90 Base) MCG/ACT 2 puffs as needed Inhalation every 6 hrs for 30 day(s) PRN Not-Taking/PRNdocusate sodium 100 mg oral capsule (20 sources)docusate sodium (Colace) 100 MG capsule Take 100 mg by mouth as needed in the morning and 100 mg asneeded in the evening for constipation. ActiveColace PRN ActiveColace Not-TakingColace ActivehydrOXYzine hydrochloride 25 mg oral tablet (3 sources)Antihistaminetake 1 tablet by mouth once daily as needed for anxiety hydrOXYzine HCl 25 MG TAKE 1 TABLET BY MOUTH ONCE A DAY NEEDED FOR ANXIETY FOR 30 DAYS PRN ActiveMultiple Vitamin (multivitamin) tablet (20 sources)take 1 tablet by mouth once dailyMultiple Vitamin (multivitamin) tablet Take 1 tablet by mouth Daily Activepolyethylene glycol 3350 93970 mg powder for oral solution (20 sources)Osmotic Laxativepolyethylene glycol, PEG, 3350 (Miralax) 17 g packet Take by mouth Activepolysaccharide iron complex 391 mg oral capsule (7 sources)Start: 10-09-2024 End: 38-05-0729oaip 1 capsule by mouth once dailyiron polysaccharides (ProFe) 391.3 (180 Fe) MG capsule Indications: Anemia during in second trimester ([facility]) Take 1 capsule (391.3 mg) by mouth Daily 30 capsule 6 10/09/2024 11/08/2024 Active Completed/Discontinued Medications MedicationDrug Class(es)DatesSig (Normalized)Sig (Original)Albuterol Sulfate (2.5 MG/ 3 ML) 2.5 MG/3ML 0.083% Nebulization Solution (5 sources)Albuterol Sulfate (2.5 MG/ 3 ML) 2.5 MG/3ML 0.083% Nebulization Solution 3ml Inhalation 4 times a day as needed for 30 day(s) PRN Not-Taking/PRN Albuterol Sulfate (2.5 MG/ 3 ML) 2.5 MG/3ML 0.083% Nebulization Solution 3ml Inhalation 4 times a day as needed for 30 day(s) PRN Not-TakingAlbuterol Sulfate (2.5 MG/ 3 ML) 2.5 MG/3ML 0.083% Nebulization Solution 3ml Inhalation 4 times a day as needed for 30 day(s) PRN Activeclobetasol propionate 0.0005 mg/mg topical ointment (4 sources)CorticosteroidStart: 13-52-7956Ucgrzzrghr Propionate 0.05 % 1 application Externally Twice a day for 10 day(s) PRN Feb, Not-Taking FLUoxetine 20 mg oral tablet (4 sources)Serotonin Reuptake Inhibitortake 1 tablet by mouth every twenty-four hoursFLUoxetine HCl 20 MG 1 tablet Orally Once a day for 90 day(s) Not-Taking naproxen 500 mg oral tablet (2 sources)Nonsteroidal Anti-inflammatory DrugStart: 00-06-8905ausr 1 tablet by mouth every twelve hours at mealtime as neededNaproxen 500 MG 1 tablet with food or milk as needed Orally every 12 hrs for 20 days Apr, Not-Taking/PRN Problems Active Problems Problem ClassificationProblemDateDocumented DateEpisodic/ChronicAnxiety disorders (10 sources)Mixed anxiety and depressive disorder; Translations: [Other specified anxiety disorders]Onset: 02-11-2021 Resolved: 45-81-8651ZghlorkVhmqmm (9 sources)Uncomplicated moderate persistent asthma; Translations: [Moderate persistent asthma, uncomplicated]Onset: 02-11-2021 Resolved: 29-97-9210SmsuljaTjyjijvouw and other anemia (2 sources)Anemia; Translations: [Anemia, unspecified]00-48-6178FvlgiswhLrozldpp mellitus without complication (1 source)Diabetes mellitus without complication; Translations: [Z13.1 - Encounter for screening for diabetesmellitus]Onset: 93-39-0717Evrfsfnc; including migraine (5 sources)Chronic tension-type headache; Translations: [Chronic tension-type headache, not intractable]ChronicImmunizations and screening for infectious disease (8 sources)Encounter for screening for human papillomavirus (HPV); Translations: [Encounter for screening for infections with a predominantly sexual mode of transmission]Onset: 39-78-0923BumguuvrVigukmjsp disorders (4 sources)Irregular menstruation, unspecified; Translations: [IRREGULAR MENSTRUATION UNSPECIFIED]Onset: 20-41-4549JeuxeheAsqcj complications of ; puerperium affecting management of mother (1 source)Anemia complicating childbirth; Translations: [ANEMIA COMPLICATING CHILDBIRTH]Onset: 45-75-4851ZhrlprvKhvuy complications of ; puerperium affecting management of mother (1 source)Obesity complicating childbirth; Translations: [OBESITY COMPLICATING CHILDBIRTH]Onset: 50-45-5196JrklfvmLcrwc complications of (2 sources)Anemia of ; Translations: [Anemia complicating , second trimester]78-32-6277LcoqfymGmkdm complications of (2 sources) size does not accord with dates; Translations: [Uterine size- date discrepancy, unspecified trimester]21-37-5835HtojwavaYqqjp connective tissue disease (1 source)Other enthesopathies, not elsewhere classifiedEpisodicOther nutritional; endocrine; and metabolic disorders (1 source)Obesity, unspecified; Translations: [OBESITY UNSPECIFIED]Onset: 82-97-9884BqgmdnuUvybk and delivery including normal (14 sources)Single live ; Translations: [Encounter for supervision of normal , unspecified, firsttrimester]Onset: [id number] EpisodicOther screening for suspected conditions (not mental disorders or infectious disease) (19 sources)Encounter for screening for malignant neoplasm of cervix; Translations: [Encounter for screening for Streptococcus B]Onset: 75-31-4692LaqwarruDrgke upper respiratory infections (4 sources)Acute frontal sinusitis; Translations: [Acute frontal sinusitis, unspecified]EpisodicResidual codes; unclassified (2 sources)Gestation period, 14 weeks; Translations: [14 weeks gestation of ]91-80-0792UttikhwtVgdwhvzq codes; unclassified (2 sources)Gestation period, 18 weeks; Translations: [18 weeks gestation of ]84-12-1962TmkucfycMiyrpwra codes; unclassified (2 sources)Gestation period, 22 weeks; Translations: [22 weeks gestation of ]42-78-6268QrwvblemHkettqcz codes; unclassified (2 sources)Gestation period, 26 weeks; Translations: [26 weeks gestation of ]91-42-7077IlqjfklfComoqfhu codes; unclassified (2 sources)Gestation period, 28 weeks; Translations: [28 weeks gestation of ]70-75-0414ZtikqqcrGncphfmh codes; unclassified (2 sources)Gestation period, 30 weeks; Translations: [30 weeks gestation of ]94-78-2229BicrsqpjNqdbiqxpnlyn (1 source)CONTACT W/AND (SUSP) EXPOS COVID-19; Translations: [CONTACT W/AND (SUSP) EXPOS COVID-19]Onset: 11-02-2021 Past or Other Problems Problem ClassificationProblemDateDocumented DateEpisodic/ChronicDeficiency and other anemia (1 source)Iron deficiency anemia, unspecified; Translations: [IRON DEFICIENCY ANEMIA UNSPECIFIED]Onset: 40-24-9265OeffflykV Codes: Cut/pierceb (1 source)Contact with other sharp object(s), not elsewhere classified, initial encounter; Translations: [[facility] OB NOT ELSW CLASS INI]Onset: 06-01-2021 EpisodicHemorrhage during ; abruptio placenta; placenta previa (8 sources)Low lying placenta NOS or without hemorrhage, unspecified trimester; Translations: [Complete placenta previa NOS or without hemorrhage, unspecified trimester]Onset: 52-41-7262IgoxmxkvMswih aftercare (1 source)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; Translations: [OT [facility] CURRENT DRUG THERAPY]Onset: 16-18-1328QjojmirmKiock complications of ; puerperium affecting management of mother (1 source)Diseases of the respiratory system complicating childbirth; Translations: [DISEASES RESP SYS COMP CHILDBIRTH]Onset: 25-26-0639VnliyoilJchje female genital disorders (4 sources)Other specified noninflammatory disorders of vagina; Translations: [OT SPEC NONINFLAMMATORY D/O VAGINA]Onset: 63-60-0352AuslwmscZrnypkmr (3 sources)Maternal care for unspecified type scar from previous delivery; Translations: [MAT CARE UNS TYPE SCAR PREV C-SECT]Onset: 11-03-2021 EpisodicResidual codes; unclassified (4 sources)Contact with and (suspected) exposure to potentially hazardous body fluids; Translations: [CONTACT AND EXPOS POTENTL HAZ BDY FLUID]Onset: 12-10-2021 EpisodicResidual codes; unclassified (1 source)39 weeks gestation of ; Translations: [39 WEEKS GESTATION OF ]Onset: 32-58-7835SqthvlxlRuzozabz codes; unclassified (1 source)Less than 8 weeks gestation of ; Translations: [< 8 WEEKS GESTATION ]Onset: 62-54-9226WgrosfyxGlqolbkgl and history of mental health and substance abuse codes (1 source)Personal history of nicotine dependence; Translations: [PERSONAL HISTORY OF NICOTINE DEPEND]Onset: 83-26-8846YcsvchkgKmrgotoprlo injury; contusion (4 sources)Abrasion of left hand, initial encounter; Translations: [ABRASION LEFT HAND INITIAL ENC]Onset: 42-76-0333Jrsjfmik Results Test NameValueInterpretationReference RangeFacilityUrinalysis macro (dipstick) panel (U)on 93-58-3473Lqopdrmtf, UANegativeNegative - 4(70) +++ mg/dLNOMS HealthcareBlood, UAPositiveNegative - 50 Guy/mcLNOMS HealthcareComment on above: TraceClarity, UAClearNOMS HealthcareColor, UAYellowNOMS HealthcareGlucose, UA NegativeNegative - 2000(110) ++++ mg/dLNOMS HealthcareInterpretation and review of laboratory resultsAbnormalNOMS HealthcareKetones, UAPositiveNegative - 160(16) ++++ mg/dLNOMS HealthcareComment on above:1+Leukocytes, UANegative Negative - 500+++ Corona/mcLNOMS HealthcareNitrite, UANegativeNegative - Positive NOMS HealthcarepH, UA65 - 9NOMS HealthcareProtein, UAPositiveNegative - 2000(20) ++++ mg/dLNOMS HealthcareComment on above:TraceSpec Grav, UA1.031 - 1.03NOMS HealthcareUrobilinogen, UA0.20.2 - 12 mg/dLNOMS HealthcareNOMS HealthcareALL CBC WITH AUTO DIFFon 75-32-7268ZLSTKRALC ABSOLUTE ATRL6ZDSD HealthcareBasophils/100 WBC (Bld)0.3 %0.2 - 2.0 %[facility] BransonEosinophils/100 WBC (Bld)1.2 %0.9 - 7.0 %[facility] BransonErythrocyte distribution width (RBC) [Ratio]12.7 %11.0 - 15.0 % [facility] BransonHematocrit (Bld) [Volume fraction]32 %Low36.0 - 48.0 %[facility] BransonHemoglobin (Bld) [Mass/Vol]10.7 g/dLLow12.0 - 16.0 g/dLCox Branson IMMATURE GRANULOCYTES ABS AUTO0.24HighCox BransonImmature granulocytes/100 WBC (Bld)1.9 %High0.0 - 0.5 %[facility] BransonInterpretation and review of laboratory resultsAbnormalCox BransonLYMPHOCYTES ABSOLUTE AUTO1.5NOMS [facility] HospitalLymphocytes/100 WBC (Bld)12.3 %Low20.5 - 60.0 %[facility]ox BransonMCH (RBC) [Entitic mass]30.9 pg26.7 - 34.0 pgCox BransonMCHC (RBC) [Mass/Vol] 33.4 g/dL29.9 - 35.2 g/dLCox BransonMCV (RBC) [Entitic vol]92.5 fL81.0 - 99.0 fLCox BransonMONOCYTES ABSOLUTE AUTO0.8NOMS [facility] HospitalMonocytes/100 WBC (Bld)6.2 %1.7 - 12.0 %[facility] BransonNEUTROPHILS ABSOLUTE AUTO9.7HighCox BransonNeutrophils/100 WBC (Bld)78.1 %High43.0 - 75.0 %[facility] Platelet mean volume (Bld) [Entitic vol]9.5 fL9.5 - 13.5 fLCox BransonTB EO #0.2NOMS [facility] HospitalTB [id number] [facility] RBC3.46LowNOMS [facility] WBC 12.4HighCox BransonCLINISYNCNOMS [facility] HospitalUrinalysis macro (dipstick) panel (U)on 85-64-6089Qznmsshfn, UANegativeNegative - 4(70) +++ mg/dLNOMS Healthcare Blood, UANegativeNegative - 50 Guy/mcLNOMS HealthcareClarity, UAClearNOMS HealthcareColor, UAYellowNOMS HealthcareGlucose, UANegativeNegative - 2000(110) ++++ mg/dLNOMS HealthcareInterpretation and review of laboratory resultsNormal [facility] HealthcareKetones, UANegativeNegative - 160(16) ++++ mg/dLNOMS Healthcare Leukocytes, UANegativeNegative - 500+++ Corona/mcLNOMS HealthcareNitrite, UA NegativeNegative - PositiveNOMS HealthcarepH, UA6.55 - 9NOMS HealthcareProtein, UANegativeNegative - 2000(20) ++++ mg/dLNOMS HealthcareSpec Grav, UA1.0151 - 1.03NOMS HealthcareUrobilinogen, UA0.20.2 - 12 mg/dLNOMS HealthcareNOMS HealthcareUrinalysis macro (dipstick) panel (U)on 27-39-9661Uoylmaejg, UA NegativeNegative - 4(70) +++ mg/dLNOMS HealthcareBlood, UANegativeNegative - 50 Guy/mcLNOMS HealthcareClarity, UAClearNOMS HealthcareColor, UAYellowNOMS HealthcareGlucose, UANegativeNegative - 1999(110) ++++ mg/dLNOMS Healthcare Interpretation and review of laboratory resultsAbnormalNOMS HealthcareKetones, UANegativeNegative - 160(16) ++++ mg/dLNOMS HealthcareLeukocytes, UANegative Negative - 500+++ Corona/[facility]ond[facility] Regional HospitalNOPA HealthcareNitrite, UANegativeNegative - Positive NOMS HealthcarepH, UA65 - 9NOMS HealthcareProtein, UAPositiveNegative - 2000(20) ++++ mg/dLNOMS HealthcareSpec Grav, UA1.021 - 1.03NOMS HealthcareUrobilinogen, UA1.00.2 - 12 mg/dLNOMS HealthcareNOMS HealthcareALL CBC WITH AUTO DIFFon 57-00-0343JQOXXQOKJ ABSOLUTE RGUB1UPAO HealthcareBasophils/100 WBC (Bld)0.2 %0.2 - 2.0 %NOMS HealthcareEosinophils/100 WBC (Bld)1.9 %0.9 - 7.0 %[facility] Healthcare Erythrocyte distribution width (RBC) [Ratio]12.6 %11.0 - 15.0 %[facility] Hematocrit (Bld) [Volume fraction]29.6 %Low36.0 - 48.0 %[facility] Hemoglobin (Bld) [Mass/Vol]9.9 g/dLLow12.0 - 16.0 g/dLCox BransonIMMATURE GRANULOCYTES ABS AUTO0.09HighCox BransonImmature granulocytes/100 WBC (Bld)1 %High0.0 - 0.5 %[facility] BransonInterpretation and review of laboratory results AbnormalCox BransonLYMPHOCYTES ABSOLUTE AUTO1.3[facility] Lymphocytes/100 WBC (Bld)14 %Low20.5 - 60.0 %[facility] SystemH (RBC) [Entitic mass]31 pg26.7 - 34.0 pgFreeman Health SystemHC (RBC) [Mass/Vol]33.4 g/dL29.9 - 35.2 g/dLFreeman Health SystemV (RBC) [Entitic vol]92.8 fL81.0 - 99.0 fLCox Branson MONOCYTES ABSOLUTE AUTO0.6Cox BransonMonocytes/100 WBC (Bld)6.3 %1.7 - 12.0 %[facility] BransonNEUTROPHILS ABSOLUTE AUTO7.3HighCox BransonNeutrophils/100 WBC (Bld)76.6 %High43.0 - 75.0 %[facility]ox BransonPlatelet mean volume (Bld) [Entitic vol]9.6 fL9.5 - 13.5 fLFreeman Orthopaedics & Sports Medicine EO #0.2NOMS [facility] HospitalTB PLT 272NOMissouri [facility] RBC3.19LowFreeman Orthopaedics & Sports Medicine WBC9.5[facility] CLINISYNCCox BransonUrinalysis macro (dipstick) panel (U)on 09-26-2024 Bilirubin, UANegativeNegative - 4(70) +++ mg/dLCox BransonBlood, UANegative Negative - 50 Guy/mcLNOPA HealthcareClarity, UAClearNOPA HealthcareColor, UA YellowNOPA HealthcareGlucose, UANegativeNegative - 2000(110) ++++ mg/dLCox BransonInterpretation and review of laboratory resultsNormalCox [facility]anson Ketones, UANegativeNegative - 160(16) ++++ mg/dLNOSouthPointe HospitalLeukocytes, UA NegativeNegative - 500+++ Corona/mcLNOPA HealthcareNitrite, UANegativeNegative - PositiveNOMS HealthcarepH, UA65 - 9NOMS HealthcareProtein, UANegativeNegative - 2000(20) ++++ mg/dLNOPA HealthcareSpec Grav, UA1.031 - 1.03NOSouthPointe Hospital Urobilinogen, UA1.00.2 - 12 mg/dLNOSouthPointe HospitalNOPA HealthcareUS OB 14+ WEEKS ANATOMY SCANon 91-53-2510FQ OB 14+ WEEKS ANATOMY SCANEXAM: US OB 14+ WEEKS ANATOMY SCAN HISTORY: [...] 14-Sep-2024 08:26:06 AM [facility] TeleradiologyNormalNot AvailableComment on above:Order Comment: US OB ANATOMY SINGLE W US OB CERVICAL LENGTH Estimated Date of Delivery: 01/25/25 Gestational Age as of 08/29/2024: 25w3tSGI,APTIMA HPV,AGE GDLNon 53-91-4583KIE GDLN ACOG TESTINGNote.NOMS HealthcareComment on above:TESTS RESULT FLAG UNITS REF RANGE LAB Clinician Provided Cytology Information Source.............Endocervix No. of containers..01 ThinPrep Vial Age Algo ACOG Jenny... 30-65 01 FLAG LEGEND: L-Low Normal,H-High Normal,LL-Alert Low,HH-Alert High <-Panic Low,>-Panic High,A-Abnormal,AA-Critical Abnormal Performed at: 01 =[facility] [place] [address] Isabelle Quiros MD, HPV APTIMANegativeNegativeNOMS HealthcareComment on above:This nucleic acid amplification test detects fourteen high- risk HPV types (16,18,31,33,35,39,45,51,52,56,58,59,66,68) without differentiation. Performed at: =[address], [place] [id number] [employer]: Isabelle Quiros MD, Phone: [phone] Performed at: [address], [place] [id number] [employer]: Isabelle Quiros MD, Phone: [phone] IGP, APTIMA HPV, RFX 16/18,45Note.NOMS HealthcareComment on above:TESTS RESULT FLAG UNITS REF RANGE LAB DIAGNOSIS: 02 NEGATIVE FOR INTRAEPITHELIAL LESION OR MALIGNANCY. Specimen adequacy: 02 Satisfactory for evaluation. No endocervical component is identified. Performed by: 02 Mya Carrasquillo, Fundraiser (ASCP) . 02 Note: Note 02 The [...] <-Panic Low,>-Panic High,A-Abnormal,AA-Critical Abnormal Performed at: [address] [facility] [address] Isabelle Quiros MD, SPATULA-ALONE ENDOCERVIX CLINISYNCNOMS HealthcareRECURRENT VAGINITIS (HTRX)on 55-21-4234XBPDWAKVZ VAGINAE 0NOMS HealthcareATOPOBIUM VAGINAENot detectedNOMS HealthcareBVAB 2,3 (BACTERIAL VAGINOSIS ASSOCIATED BACTERIA 2, 3); MOBILUNCUS SPP27.253AbnormalNOMS Healthcare BVAB 2,3 (BACTERIAL VAGINOSIS ASSOCIATED BACTERIA 2, 3); MOBILUNCUS SPPDetected AbnormalNOMS HealthcareCANDIDA ALBICANS, PARAPSILOSIS, UJJBHOXKRO7LMEV HealthcareCANDIDA ALBICANS, PARAPSILOSIS, TROPICALISNot detectedNOMS Healthcare AKASH [id number] HealthcareCANDIDA GLABRATANot detectedNOMS Healthcare AKASH [id number] HealthcareCANDIDA KRUSEINot detectedNOMS HealthcareCHLAMYDIA BGPLUIKLWEG4OTOS HealthcareCHLAMYDIA TRACHOMATISNot detectedNOMS Healthcare GARDNERELLA ETTAYJNBX29.264AbnormalNOMS HealthcareGARDNERELLA VAGINALISDetected AbnormalNOMS HealthcareInterpretation and review of laboratory resultsAbnormal NOMS HealthcareMEGASPHAERA (TYPES 1, 2)0NOMS HealthcareMEGASPHAERA (TYPES 1, 2) Not detectedNOMS HealthcareMYCOPLASMA [id number] HealthcareMYCOPLASMA GENITALIUMNot detectedNOMS HealthcareNEISSERIA AYFOZZIVLKA6YAOI Healthcare NEISSERIA GONORRHOEAENot detectedNOMS HealthcareTET B, TET M27.391AbnormalNOMS HealthcareTET B, TET MDetectedAbnormalNOMS HealthcareTRICHOMONAS KWOGHFZRK2FTVY HealthcareTRICHOMONAS VAGINALISNot detectedNOMS HealthcareNOMS Healthcare Urinalysis macro (dipstick) panel (U)on 29-11-5880Wokldkvmp, UANegativeNegative - 4(70) +++ mg/dLNOMS HealthcareBlood, UANegativeNegative - 50 Guy/mcLNOMS HealthcareClarity, UAClearNOMS HealthcareColor, UAYellowNOMS HealthcareGlucose, UANegativeNegative - 1999(110) ++++ mg/dLNOMS HealthcareInterpretation and review of laboratory resultsNormalNOMS HealthcareKetones, UANegativeNegative - 160(16) ++++ mg/dLNOMS HealthcareLeukocytes, UANegativeNegative - 500+++ Corona/mcL NOMS HealthcareNitrite, UANegativeNegative - PositiveNOMS HealthcarepH, UA75 - 9 NOMS HealthcareProtein, UANegativeNegative - 1999(20) ++++ mg/dLNOMS Healthcare Spec Grav, UA1.011 - 1.03NOMS HealthcareUrobilinogen, UA0.20.2 - 12 mg/dLNOMS HealthcareNOMS HealthcareUrinalysis macro (dipstick) panel (U)on 08-02-2024 Bilirubin, UANegativeNegative - 4(70) +++ mg/dLNOMS HealthcareBlood, UAPositive Negative - 50 Guy/mcLNOMS HealthcareComment on above:smallClarity, UAClearNOMS HealthcareColor, UAYellowNOMS HealthcareGlucose, UANegativeNegative - 1999(110) ++++ mg/dLNOMS HealthcareInterpretation and review of laboratory resultsAbnormal NOMS HealthcareKetones, UAPositiveNegative - 160(16) ++++ mg/dLNOMS Healthcare Comment on above:TraceLeukocytes, UANegativeNegative - 500+++ Corona/mcLNOMS HealthcareNitrite, UANegativeNegative - PositiveNOMS HealthcarepH, UA5.55 - 9 NOMS HealthcareProtein, UANegativeNegative - 1999(20) ++++ mg/dLNOMS Healthcare Spec Grav, UA1.031 - 1.03NOMS HealthcareUrobilinogen, UA0.20.2 - 12 mg/dLNOMS HealthcareNOMS HealthcareALL CBC WITH AUTO DIFFon 51-80-4263TPSXOALCR ABSOLUTE HCGN5FTOI HealthcareBasophils/100 WBC (Bld)0.4 %0.2 - 2.0 %[facility] Healthcare Eosinophils/100 WBC (Bld)2.4 %0.9 - 7.0 %NOMS HealthcareErythrocyte distribution width (RBC) [Ratio]12.4 %11.0 - 15.0 %NOMS HealthcareHematocrit (Bld) [Volume fraction]36.3 %36.0 - 48.0 %[facility] BransonHemoglobin (Bld) [Mass/Vol]12.6 g/dL 12.0 - 16.0 g/dLCox BransonIMMATURE GRANULOCYTES ABS AUTO0.02NOSouthPointe Hospital Immature granulocytes/100 WBC (Bld)0.2 %0.0 - 0.5 %[facility] BransonInterpretation and review of laboratory resultsAbnormalCox BransonLYMPHOCYTES ABSOLUTE AUTO1.9NOSouthPointe HospitalLymphocytes/100 WBC (Bld)17.4 %Low20.5 - 60.0 %[facility] SystemH (RBC) [Entitic mass]31 pg26.7 - 34.0 pgFreeman Health SystemHC (RBC) [Mass/Vol]34.7 g/dL29.9 - 35.2 g/dLFreeman Health SystemV (RBC) [Entitic vol]89.4 fL 81.0 - 99.0 fLCox BransonMONOCYTES ABSOLUTE AUTO0.7[facility] Monocytes/100 WBC (Bld)6.7 %1.7 - 12.0 %[facility] BransonNEUTROPHILS ABSOLUTE AUTO 7.8HighNOSouthPointe HospitalNeutrophils/100 WBC (Bld)72.9 %43.0 - 75.0 %[facility] BransonPlatelet mean volume (Bld) [Entitic vol]9.5 fL9.5 - 13.5 fLCox BransonTB EO #0.3NOMissouri [facility] XLY165WTXVMissouri Delta Medical Center RBC4.06LowFreeman Orthopaedics & Sports Medicine WBC10.7NOSouthPointe HospitalCLINISYNCNOMS HealthcareBOX TESTon 45-44-6637SWK TEST SENT OUTYESCox BransonYhfsxgrubpMKK9CMTJZEOFB GchsjpckckDYD54/10/25 [facility] BransonUNITY BOX CLINISYNCNOPA HealthcareUS OB TRANSVAGINALon [id number] OB TRANSVAGINALEXAM: US OB TRANSVAGINAL HISTORY: Dating. COMPARISON: None [...] to a gestational age of 10 weeks 6days (+/- 7 days). There is no subchorionic [...] II, MD, PHD at 06-Jul-2024 12:18:02 PM [facility] TeleradiologyNormalNot AvailableComment on above:Order Comment: US OB TRANSVAGINAL No LMP recorded.PAP ACOG PANEL 2: 30 to 65on 03-16-2022..NormalThe Nevis HospitalComment on above:Result Comment: Performed at: WBPerformed By: #### HIV12 #### [facility] [address] [address] [address] Nolvia Dugan Gdln ACOG Konoqvo66-53XfchskPrf Bellevue HospitalComment on above:Performed By: #### HIV12 #### [facility] [address] [address] [address] Nolvia RuvalcabaDIAGNOSIS:CommentNoThe [facility] HospitalComment on above: Result Comment: NEGATIVE FOR INTRAEPITHELIAL LESION OR MALIGNANCY. Performed at: WBPerformed By: #### HIV12 #### [facility] [address] [address] [address] Nolvia RuvalcabaHPV AptimaNegativeNormalNegativeThe Nevis HospitalComment on above:Result Comment: This nucleic acid amplification test detects fourteen high-risk HPV types (16,18,31,33,35,39,45,51,52,56,58,59,66,68) without differentiation. Performed at: =GPerformed By: #### HIV12 #### [facility] [address] [place] [address] Dr. Nolvia RuvalcabaHPV Genotype ReflexCommentCleveland Clinic on above:Result Comment: Criteria not met, HPV Genotype not performed. Performed at: WBPerformed By: #### HIV12 #### [facility] [address] [place] [address] Dr. Nolvia RuvalcabaMethodology:CommentCleveland Clinic on above: Result Comment: This liquid based ThinPrep(R) pap test was screened with the use of an image guided system. Performed at: WBPerformed By: #### HIV12 #### [place] [address] [address] Nolvia RuvalcabaNote:CommentCleveland Clinic on above:Result Comment: The Pap smear is a screening test designed to aid in the detection of premalignant and malignant conditions of the uterine cervix. It is not a diagnostic procedure and should not be used as the sole means of detecting cervical cancer. Both false-positive and false-negative reports do occur. . Performed at: WBPerformed By: #### HIV12 #### [facility] [address] [place] [address] Dr. Nolvia RuvalcabaPerformed by:CommentNoShelby Memorial Hospital on above: Result Comment: Inessa [employer] ([employer]) Performed at: WBPerformed By: #### HIV12 #### [facility] [address] [place] [address] Dr. Nolvia RuvalcabaSpecimen adequacy:CommentCleveland Clinic on above:Result Comment: Satisfactory for evaluation. Endocervical and/or squamous metaplastic cells (endocervical component) are present. Performed at: WBPerformed By: #### HIV12 #### [facility] [address] [place] [address] Dr. Nolvia Law C ANTIBODYon [id number] C Virus Ab<0.9Qbadsl9.0-0.9 The [facility] CenterComment on above:Result Comment: Negative: < 0.8 Indeterminate: 0.8 - 0.9 Positive: > 0.9 . HCV antibody alone does not differentiate between previous resolved infection and active infection. The CDC and current clinical guidelines recommend that a positive HCV antibody result be followed up with an HCV RNA test to support the diagnosis of acute HCV infection. [facility] offers Hepatitis C Virus (HCV) RNA, Diagnosis, THERON (132298) and Hepatitis C Virus (HCV) Antibody with reflex to Quantitative Real-time PCR (825342).Performed By: #### HIV12 #### [facility] [address] [place] [address] Dr. Nolvia Tomlin 1 AND 2 WITH REFLEXon [id number] Screen 4th Generation wRfxNon-ReactiveNormalNon ReactiveThe [facility] CenterComment on above:Result Comment: HIV Negative HIV-1/HIV-2 antibodies and HIV-1 p24 antigen were NOT detected. There is no laboratory evidence of HIV infection.Performed By: #### HIV12 #### [facility] [address] [place] [address] Dr. Nolvia Boykin [id number] [Catalytic activity/Vol]59 U/WQlrisl09-63Yyq [facility] CenterComment on above:Performed By: #### ALT ####[facility] Maudgqarui[address] [place], [place] [address]DrAngel ToscanoC AUTO DIFFon [id number] #0.1 103/ulNormal0.0-0.1The [facility] CenterComment on above: Performed By: #### CBC ####[facility] Ljeuiptpkl[address] [place], [place] [address]DrAngel RuvalcabaBasophils/100 WBC (Bld)0.4 %Normal 0.2-2.0The [facility] CenterComment on above:Performed By: #### CBC ####[facility] Qvcwewfjht56[address] [place], [place] [address]Dr.Yilan ChangEO # 0.2 103/ulNormal0.0-0.7The [facility] HospitalComment on above:Performed By: #### CBC ####[facility] Cpogsdsxmh7784[address] [place], [place] [address]Dr. Liyayaniv ChangEosinophils/100 WBC (Bld)1.3 %Normal0.9-7.0The [facility] Comment on above:Performed By: #### CBC ####[facility] Iweiasuocg[address] [place], [place] [address]Dr.Liyayaniv ChangErythrocyte distribution width (RBC) [Ratio]14.2 %Wonutr28.0-15.0The [facility] CenterComment on above: Performed By: #### CBC ####[facility] Flcwelwevo5[address] [place], [place] [address]Dr.Liyayaniv ChangHematocrit (Bld) [Volume fraction]28.8 % Critically low36.0-48.0The [facility] CenterComment on above:Performed By: #### CBC ####[facility] Nbumnfpapg[address] [place], [place] [address]Dr. Liyayaniv ChangHemoglobin (Bld) [Mass/Vol]9.0 g/dLCritically low12.0-16.0The [facility] CenterComment on above:Performed By: #### CBC ####[facility] Chlsjnscub8[address] [place], [place] [address]Dr.Yilan ChangIG #0.16 10e3/ulCritically high0.00-0.03The [facility] CenterComment on above:Performed By: #### CBC ####[facility] Xcmlrjfwyb67[address] [place], [place] [address]Dr.Liyalan ChangIG %1.1 %Critically high0.0-0.5The [facility] HospitalComment on above:Performed By: #### CBC ####[facility] Afyazjsvgt0840[address] [place], [place] [address]Dr.Yilan ChangLYMPH #1.8 103/ulNormal1.2-3.8The [facility] CenterComment on above:Performed By: #### CBC ####[facility] [address] [address]Dr.Nolvia RuvalcabaLymphocytes/100 WBC (Bld)12.4 %Critically low20.5-60.0The [facility] CenterComment on above: Performed By: #### CBC ####[facility] [address] [address]Dr.Nolvia RuvalcabaMANUAL DIFF REQNONormalThe [facility] CenterComment on above:Performed By: #### CBC ####[facility] Jdwxtyspgt20[address] [place], [place] [address]Dr.Nolvia RuvalcabaMCH (RBC) [Entitic mass]28.6 wuUaosmu13.7-34.0The [facility] CenterComment on above: Performed By: #### CBC ####[facility] Qxbahnxsje2354[address] [place], [place] [address]Dr.Liyayaniv RuvalcabaMCHC (RBC) [Mass/Vol]31.3 g/dLNormal 29.9-35.2The [facility] CenterComment on above:Performed By: #### CBC ####[facility] Cgcgaasfrh6[address] [place], [place] [address]Dr. Liyayaniv RuvalcabaMCV (RBC) [Entitic vol]91.4 jILiovyt75.0-99.0The [facility] Comment on above:Performed By: #### CBC ####[facility] Cschyvgtpa6309[address] [place], [place] [address]Dr.Nolvia RuvalcabaMONO #1.0 103/ulCritically high0.3-0.8The [facility] CenterComment on above:Performed By: #### CBC ####[facility] Pawuijpzvg17[address] [place], [place] [address]Dr. Nolvia JordonMonocytes/100 WBC (Bld)6.9 %Normal1.7-12.0The [facility] Comment on above:Performed By: #### CBC ####[facility] Tkuzkdlogs2828[address] [place], [place] [address]Dr.Nolvia RuvalcabaNEUT #11.3 103/ulCritically high1.4-6.5The [facility]celmo HospitalComment on above:Performed By: #### CBC ####[facility] Awhzbjenyn1787[address] [place], [place] [address]Dr. Nolvia RuvalcabaNeutrophils/100 WBC (Bld)77.9 %Critically high43.0-75.0The [facility] CenterComment on above:Performed By: #### CBC ####[facility] Aqeujsdoek[address] [place], [place] [address]Dr.Nolvia RuvalcabaPlatelet mean volume (Bld) [Entitic vol]9.8 fLNormal9.5-13.5The [facility] HospitalComment on above:Performed By: #### CBC ####[facility] Cfecclwthr045[address] [place], [place] [address]Dr.Nolvia FoscdUCH296 103/waGuvgzs114-635Irh [facility] CenterComment on above:Performed By: #### CBC ####[facility] Qhhwvzmidt1130[address] [place], [place] [address]Dr.Nolvia ChangRBC3.15 106/ul Critically low4.20-5.40The [facility] CenterComment on above:Performed By: #### CBC ####[facility] Zlcgcuahyz2270[address] [place], [place] [address]Dr. Nolvia RuvalcabaWBC14.6 103/ulCritically high4.0-11.0The [facility] CenterComment on above:Performed By: #### CBC ####[facility] Ladfdtguhh0730[address] [place], [place] [address]Dr.Nolvia JordonC AUTO DIFFon [id number] #0.1 103/ulNormal0.0-0.1The [facility] CenterComment on above:Performed By: #### CBC ####[facility] Iomgnxgwad4816[address] [place], [place] [address]Dr. Nolvia RuvalcabaBasophils/100 WBC (Bld)0.3 %Normal0.2-2.0The [facility] CenterComment on above:Performed By: #### CBC ####[facility] Zummcjqefb9594[address] [place], [place] [address]Dr.Yilan ChangEO #0.1 103/ulNormal0.0-0.7The [facility] HospitalComment on above:Performed By: #### CBC ####[facility] Icsxodmgye2186[address] [place], [place] [address]Dr.Yilan ChangEosinophils/100 WBC (Bld)1.0 %Normal0.9-7.0The [facility] CenterComment on above:Performed By: #### CBC ####[facility] Qfhxrfnjxv3924[address] [place], [place] [address]Dr.Yilan ChangErythrocyte distribution width (RBC) [Ratio]14.2 %Normal 11.0-15.0The [facility] CenterComment on above:Performed By: #### CBC ####[facility] Tuicudqqkc7624[address] [place], [place] [address]Dr. Yilan ChangHematocrit (Bld) [Volume fraction]33.5 %Critically low36.0-48.0The [facility] CenterComment on above:Performed By: #### CBC ####[facility] Rxwkzqqqoz636[address] [place], [place] [address]Dr.Liyayaniv ChangHemoglobin (Bld) [Mass/Vol]10.9 g/dLCritically low12.0-16.0The [facility] CenterComment on above:Performed By: #### CBC ####[facility] Viadaktfwz8[address] [place], [place] [address]Dr.Yilan ChangIG #0.22 10e3/ulCritically high0.00-0.03 The [facility] CenterComment on above:Performed By: #### CBC ####[facility] Tybopunndn5540[address] [place], [place] [address]Dr.Yilan ChangIG % 1.5 %Critically high0.0-0.5The [facility] HospitalComment on above:Performed By: #### CBC ####[facility] Wsfwrikxbh9[address] [place], [place] [address]Dr.Yilan ChangLYMPH #2.3 103/ulNormal1.2-3.8The [facility] CenterComment on above:Performed By: #### CBC ####[facility] [address]gas[address] [address]Dr.Nolvia RuvalcabaLymphocytes/100 WBC (Bld)16.1 % Critically low20.5-60.0The [facility] CenterComment on above:Performed By: #### CBC ####[facility] [address] [address]Dr. Nolvia RuvalcabaMANUAL DIFF REQNONormalThe [facility] CenterComment on above: Performed By: #### CBC ####[facility] [address]ivaz[address] [address]Dr.Nolvia RuvalcabaH (RBC) [Entitic mass]29.0 pgNormal 26.7-34.0The [facility] CenterComment on above:Performed By: #### CBC ####[facility] Wresqldmps[address] [place], [place] [address]Dr. Nolvia RuvalcabaHC (RBC) [Mass/Vol]32.5 g/xZJmgjaa99.9-35.2The [facility] Comment on above:Performed By: #### CBC ####[facility] Unbbhbdaal93[address] [place], [place] [address]Dr.Nolvia RuvalcabaMCV (RBC) [Entitic vol]89.1 fL Rrxgcs50.0-99.0The [facility] CenterComment on above:Performed By: #### CBC ####[facility] Pggasqfkkr13[address] [place], [place] [address]Dr. Liyayaniv RuvalcabaMONO #1.0 103/ulCritically high0.3-0.8The [facility] CenterComment on above:Performed By: #### CBC ####[facility] Yurvingkwe3[address] [place], [place] [address]Dr.Nolvia RuvalcabaMonocytes/100 WBC (Bld)7.0 %Normal 1.7-12.0The [facility] CenterComment on above:Performed By: #### CBC ####[facility] Zuxiwlihem22[address] [place], [place] [address]Dr. Liyayaniv RuvalcabaNEUT #10.6 103/ulCritically high1.4-6.5The [facility] CenterComment on above:Performed By: #### CBC ####[facility] [address] [address]Dr.Nolvia RuvalcabaNeutrophils/100 WBC (Bld)74.1 %Normal 43.0-75.0The [facility] CenterComment on above:Performed By: #### CBC ####[facility] [address]cc[address] [address]Dr. Nolvia RuvalcabaPlatelet mean volume (Bld) [Entitic vol]10.4 fLNormal9.5-13.5The [facility] CenterComment on above:Performed By: #### CBC ####[facility] [address] [address]Dr.Nolvia RuvalcabaPLT320 103/ul Mfqhcz182-136Oet [facility] CenterComment on above:Performed By: #### CBC ####[facility] [address]umtbbzia[address] [address]Dr. Nolvia RuvalcabaRBC3.76 106/ulCritically low4.20-5.40The [facility] CenterComment on above:Performed By: #### CBC ####[facility] Poblbqxhmi[address] [place], [place] [address]Dr.Nolvia RuvalcabaWBC14.3 103/ulCritically high4.0-11.0The [facility] CenterComment on above:Performed By: #### CBC ####[facility] Irfvkecpfr68[address] [place], [place] [address]DrAngel RuvalcabaCULTURE URINEon [id number] URINECulture Observations: NO GROWTH.NormalThe [facility] CenterComment on above:Performed By: #### URCX #### [facility] [address] [address] [address] Nolvia RuvalcabaDRUG SCREEN RAPID (URINE)on 51-19-1988IRHWxnbxqmbOgbfjsJMXLYTWF The [facility] CenterComment on above:Performed By: #### DRUGRPD ####[facility] Qduqwcprqw72[address] [place], [place] [address]Dr. Nolvia RuvalcabaBAR NegativeNormalNEGATIVEThe [facility] CenterComment on above:Performed By: #### DRUGRPD ####[facility] R[address]qosk[address] [address]Dr. Nolvia RuvalcabaBUPNegativeNormalNEGATIVENationwide Children'S HospitalComment on above:Performed By: #### DRUGRPD ####[facility] Kc[address]llnepr[address] [address]Dr. Nolvia ChangBZONegativeNormalNEGATIVENationwide Children'S HospitalComment on above:Performed By: #### DRUGRPD ####[facility] Cirehoxgvj47[address] [place], [place] [address]Dr. Nolvia RuvalcabaCOCNegative NormalNEGATIVENationwide Children'S HospitalComment on above:Performed By: #### DRUGRPD ####[facility] Oxaxczhqcm7[address] [place], [place] [address]Dr. Nolvia RuvalcabaCUT-OFFSSEE Ohio Valley HospitalComment on above:Result Comment: AMP (Amphetamine): 500ng/mL, BAR (Barbituates): 200 ng/mL, BZO (Benzodiazepines): 150 ng/mL, BUP (Buprenorphine): 10 ng/mL, MARIO (Cocaine): 150 ng/mL, mAMP (Methamphetamine): 500 ng/mL, MTD (Methadone): 200 ng/mL, OPI (Opiates): 100 ng/mL, OXY (Oxycodone): 100 ng/mL, PCP (Phencyclidine): 25 ng/mL, PPX (Propoxyphene): 300 ng/mL, THC (Cannabinoids): 50 ng/mL, TCA (Trycyclic Antidepressants): 300 ng/mLPerformed By: #### DRUGRPD ####[facility] Jlbwsosykw[address] [place], [place] [address]Dr. Nolvia RuvalcabaDRUG CUT HEADERDRUG CLASS TEST SYSTEM CUT-OFF CONCENTRATIONS ARE FOLLOWS:NormalThe [facility] CenterComment on above:Performed By: #### DRUGRPD ####[facility] Rygbcscwod[address] [place], [place] [address]Dr. Nolvia RuvalcabamAMP NegativeNormalNEGATIVENationwide Children'S HospitalComment on above:Performed By: #### DRUGRPD ####[facility] [address]nuyu[address] [address]Dr. Nolvia ChangMTDNegativeNormalNEGATIVEParkview Health HospitalComment on above:Performed By: #### DRUGRPD ####[facility] [address]wes[address] [address]Dr. Liyayaniv ChangOPINegativeNormalNEGATIVEParkview Health HospitalComment on above:Performed By: #### DRUGRPD ####[facility] X[address]grxun[address] [address]Dr. Yilan ChangOXYNegative NormalNEGATIVEParkview Health HospitalComment on above:Performed By: #### DRUGRPD ####[facility] Uqpynojjnv[address] [place], [place] [address]Dr. Liyayaniv ChangPCPNegativeNormalNEGATIVEParkview Health HospitalComment on above: Performed By: #### DRUGRPD ####[facility] Doxezdzwgg[address] [place], [place] [address]Dr. Nolvia ChangPPXNegativeNormalNEGATIVEParkview Health HospitalComment on above:Performed By: #### DRUGRPD ####[facility] Qqetuxloep[address] [place], [place] [address]Dr. Liyayaniv ChangTCANegative NormalNEGATIVENationwide Children'S HospitalComment on above:Performed By: #### DRUGRPD ####[facility] Oxufdannzn[address] [place], [place] [address]Dr. Nolvia ChangTHCNegativeNormalNEGATIVENationwide Children'S HospitalComment on above: Performed By: #### DRUGRPD ####[facility] Eqlhlmnihw[address] [place], [place] [address]Dr. Nolvia RuvalcabaTYPE AND SCREENon 30-93-7433LPCE AND SCREENNegativeNormalThe [facility] CenterComment on above:Performed By: #### TNS #### [facility] [address] [address] [address] Nolvia Sáncehz (CLEAN/CATCH) FEDERAL MEDIATOR/MICRO IF IND.on [id number] Ql (U) NegativeNormalNEGATIVEParkview Health HospitalComment on above:Performed By: #### KAYCE UACSIND ####[facility] [address] [address]Dr. Yilan ChangClarity (U)SL CLOUDYAbnormalCLEARThe [facility] Comment on above:Performed By: #### KAYCE UACSIND ####[facility] [address] [address]Dr. Yilan ChangColor (U)LT. YELLOWNormalYELLOWParkview Health HospitalComment on above:Performed By: #### KAYCE UACSIND ####[facility] [address]zjxib[address] [address]Dr. Yilan ChangGlucose Ql (U)NegativeNormalNEGATIVENationwide Children'S HospitalComment on above:Performed By: #### KAYCE UACSIND ####[facility] [address]fuecc[address] [address]Dr. Yilan Ruvalcaba Hemoglobin Ql (U)SMALLAbnormalNEGATIVENationwide Children'S HospitalComment on above: Performed By: #### KAYCE UACSIND ####[facility] [address] [address]Dr. Yilan ChangKetones Ql (U)NegativeNormal NEGATIVENationwide Children'S HospitalComment on above:Performed By: #### KAYCE UACSIND ####[facility] [address]vl[address] [address]Dr. Yilan ChangLEUKOCYTESSMALLAbnormalNEGATIVENationwide Children'S HospitalComment on above: Performed By: #### KAYCE UACSIND ####[facility] [address]qboeldy[address] [address]Dr. Yilan ChangNitrite Ql (U)NegativeNormal NEGATIVEParkview Health HospitalComment on above:Performed By: #### KAYCE UACSIND ####[facility] [address]zlmnu[address] [address]Dr. Yilan ChangpH (U)6.0 [pH]Normal5-9The [facility] HospitalComment on above: Performed By: #### MAUREEN DEVRIESCSIND ####[facility] [address]scmuc[address] [address]Dr. Nolvia RuvalcabaSPEC GRAVITY>=1.030Abnormal 1.005-<=1.025The [facility] CenterComment on above:Performed By: #### KAYCE UACSIND ####[facility] [address]hl[address] [address]Dr. Nolvia RuvalcabaUA PROTEINNegativeNormalNEGATIVE/ TRACEThe [facility] Comment on above:Performed By: #### KAYCE UACSIND ####[facility] [address]yrl[address] [address]Dr. Nolvia RuvalcabaUR MICRO IND INDICATEDFayette County Memorial HospitalComment on above:Performed By: #### KAYCE UACSIND ####[facility] Jdsopstusr[address] [place], [place] [address]Dr. Nolvia RuvalcabaUrobilinogen Qn (U)0.2 {Cami'U}/dLNormal0.2 - 1.0The [facility] CenterComment on above:Performed By: #### MAUREEN DEVRIESCSIND ####[facility] Frwpudnhxy[address] [place], [place] [address]Dr. Nolvia RuvalcabaURINE MICROSCOPIC ONLYon [id number]NXPS SEEN The [facility] CenterComment on above:Performed By: #### KAYCE UACSIND ####[facility] Ralgboxgup[address] [place], [place] [address]Dr. Nolvia RuvalcabaBacteria identified Cx Nom (U)[facility] Comment on above:Performed By: #### KAYCE UACSIND ####[facility] Rdsuspffzb04[address] [place], [place] [address]Dr. Nolvia RuvalcabaCASTNONE SEEN NormalNONE SEENThe [facility] CenterComment on above:Performed By: #### KAYCE UACSIND ####[facility] Cfyibsqdmx5[address] [place], [place] [address]Dr. Nolvia RuvalcabaCrystals LM Nom (Urine sed)NONE SEENNormalNONE SEENThe [facility] CenterComment on above:Performed By: #### KAYCE UACSIND ####[facility] [address]vsrj[address] [address]Dr. Nolvia ChangEpithelial cells LM Ql (Urine sed)MODERATEAbnormalNONE SEEN /RAREThe [facility] CenterComment on above:Performed By: #### KAYCE UACSIND ####[facility] [address]af[address]kntt[address] [address]Dr. Nolvia ChangMUCOUSNONE SEENNormalNONE SEENThe [facility] CenterComment on above: Performed By: #### KAYCE UACSIND ####[facility] Vospjuizir[address] [address]Dr. Nolvia KjqfyOLQ5-8Jmvvrpfo7-6Kax [facility] CenterComment on above:Performed By: #### KAYCE UACSIND ####[facility] L[address]zhpybqb[address] [address]Dr. Nolvia ChangWBC 5-10AbnormalNONE SEENThe [facility] CenterComment on above:Performed By: #### KAYCE UACSIND ####[facility] Qsigmibjpd[address] [place], [place] [address]Dr. Nolvia JordonCovid-19 PCR ([facility])on [id number]-CoV-2 (COVID-19) RNA THERON+probe Ql (Unsp spec)Not detectedNormalNOT DETECTEDThe [facility] Comment on above:Result Comment: This test is not yet approved or cleared by the [place] FDA. When there are no FDA-approved or cleared tests available, and other criteria are met, FDA can make tests available under an emergency access mechanism called an Emergency Use Authorization (EUA). The EUA for this test is supported by the [employer] of Health and Human Service's (HHS's) declaration that circumstances exist to justify the emergency use of in vitro diagnostics for the detection and/or diagnosis of the virus that causes COVID- 19. This EUA will remain in effect (meaning [...] of clinical signs and symptoms consistent with SARS-CoV-2.Performed By: #### HIV12 #### [facility] [address] [address] [address] Nolvia RuvalcabaGROUP B STREP CULTUREon 10-14-2021. agalactiae Ag Ql (Unsp spec) Culture Observations: NEGATIVE FOR GROUP B STREPTOCOCCUS.NormalNationwide Children'S HospitalComment on above: Performed By: #### GBSCX #### [facility] [address] [address] [address] Nolvia Dorantes C RNA BY PCR QUANT (NON-GRAPHICAL) Won 29-92-9084JUG Genotype RTNIFayette County Memorial HospitalComment on above:Result Comment: Not indicated Performed By: #### HCVPCRN ####[facility] [address] [address]Dr. Nolvia ChangHCV alf54NYRXGMWkgnccEluFayette County Memorial HospitalComment on above:Result Comment: Unable to calculate result since non- numeric result obtained for component test.Performed By: #### HCVPCRN ####[facility] [address] [address]Dr. Nolvia ChangHepatitis C QuantitationNot detectedFayette County Memorial HospitalComment on above:Performed By: #### HCVPCRN ####[facility] [address] [address]Dr. Nolvia ChangTest Information:[facility] on above: Result Comment: The quantitative range of this assay is 15 IU/mL to 100 million IU/mL.Performed By: #### HCVPCRN ####[facility] [address] [address]Dr. Nolvia RuvalcabaHIV 1 AND 2 WITH REFLEXon 90-00-5671ITL Screen 4th Generation wRfxNon-ReactiveNormalNon ReactiveNationwide Children'S Hospital Comment on above:Result Comment: HIV Negative HIV-1/HIV-2 antibodies and HIV-1 p24 antigen were NOT detected. There is no laboratory evidence of HIV infection.Performed By: #### A1C #### [facility] [address] [address] [address] Nolvia RuvalcabaRPR QUANTon 05-28-7668Fcfcf Plasma Reagin, QuantNon-Reactive NormalNonRea<1:1The [facility] Hospitalment on above:Result Comment: Please Note: This test does not meet current guidelines for screening and diagnosis of syphilis. This test is intended for following treatment response in patients being treated for syphilis infection. To screen for syphilis infection, a reflex cascade that includes both RPR and a treponema-specific assay should be utilized, such as Treponema pallidum (Syphilis) Screening [place] (277765) or Rapid Plasma Reagin (RPR) Test With Reflex to Quantitative RPR and Confirmatory Treponema pallidum Antibodies (500179).Performed By: #### HIV12 #### [facility] [address] [address] [address] Nolvia RuvalcabaGLUCOSE - 1HRon 01-63-5489Siykhpg [Mass/Vol]124 mg/dLCritically huph63-183Cii [facility] Hospitalment on above:Performed By: #### GLU1HR ####[facility] [address] [address]Dr. Nolvia RuvalcabaHEMOGRAM AND PLATELon 63-93-5502Mrlyecmayw (Bld) [Volume fraction] 33.2 %Critically low36.0-48.0The [facility] Hospitalment on above:Performed By: #### HIV12 #### [facility] [address] [address] [address] Nolvia RuvalcabaHemoglobin (Bld) [Mass/Vol]10.5 g/dLCritically low12.0-16.0The [facility] Hospitalment on above:Performed By: #### HIV12 #### [facility] [address] [place] [address] Dr. Nolvia RuvalcabaMCH (RBC) [Entitic mass]29.4 vyWtrccf38.7-34.0The [facility] HospitalComment on above:Performed By: #### HIV12 #### [facility] [address] [place] [address] Dr. Nolvia VerdinHC (RBC) [Mass/Vol]31.6 g/uULhpziw39.9-35.2The [facility] CenterComment on above:Performed By: #### HIV12 #### [facility] [address] [place] [address] Dr. Nolvia VerdinV (RBC) [Entitic vol]93.0 sRSpxcrr70.0-99.0The [facility] HospitalComment on above:Performed By: #### HIV12 #### [facility] [address] [place] [address] Dr. Nolvia RuvalcabaPLT303 103/dhGuefah434-076Zah [facility] CenterComment on above: Performed By: #### HIV12 #### [facility] [address] [place] [address] Dr. Nolvia RuvalcabaRBC3.57 106/ulCritically low4.20-5.40The [facility] CenterComment on above:Performed By: #### HIV12 #### [facility] [address] [place] [address] Dr. Nolvia RuvalcabaWBC12.3 103/ulCritically high4.0-11.0The [facility] CenterComment on above:Performed By: #### HIV12 #### [facility] [address] [place] [address] Dr. Nolvia Posadas PREG PLACENTAon 48-71-3760UM PREG PLACENTAEXAMINATION: US PREG PLACENTA HISTORY: Low lying placenta COMPARISON: Ultrasound placenta 07/30/2021 FINDINGS: PLACENTA: Posterior with lower margin 3.8 cm from os. CERVIX LENGTH: 4.6 cm; closed. HEART RATE: 138 bpm OTHER: None. IMPRESSION: 1. Posterior placenta which is no longer low-lying. Electronically authenticated by: FRANCIA CRENSHAW Date: 2021-08-18 16:15NormalThe [facility] PREG PLACENTAon 12-39-6148YT PREG PLACENTAEXAMINATION: US PREG PLACENTA HISTORY: Placenta previa without hemorrhage COMPARISON: Ultrasound anatomy 06/18/2021 FINDINGS: PLACENTA: Posterior, grade 1, with lower margin 2.5 cm from os. CERVIX LENGTH: 3.7 cm, closed. HEART RATE: 134 bpm OTHER: None. IMPRESSION: 1. Low lying posterior placenta with margin 2.5 cm from os. Electronically authenticated by: FRANCIA CRENSHAW Date: 2021-07-30 17:39[facility] C RNA BY PCR QUANT (NON-GRAPHICAL) Won 43-83-6499DGD GenotypeRTNIFayette County Memorial HospitalComment on above:Result Comment: Not indicatedPerformed By: #### HCVPCRN ####[facility] [address] [place], [place] [address]Dr. Nolvia ChangHCV yjv24OFAWORKayfolXskFayette County Memorial HospitalComment on above:Result Comment: Unable to calculate result since non- numeric result obtained for component test.Performed By: #### HCVPCRN ####[facility] [address] [place], [place] [address]Dr. Liyalan ChangHepatitis C QuantitationNot [facility] Galion HospitalComment on above:Performed By: #### HCVPCRN ####[facility] [address] [place], [place] [address]Dr. Nolvia ChangTest Information:[facility] on above: Result Comment: The quantitative range of this assay is 15 IU/mL to 100 million IU/mL.Performed By: #### HCVPCRN ####[facility] [address] [place], [place] [address]Dr. Nolvia ChangHIV 1 AND 2 WITH REFLEXon 28-76-3079QBS Screen 4th Generation wRfxNon-ReactiveNormalNon ReactiveThe [facility] Comment on above:Result Comment: HIV Negative HIV-1/HIV-2 antibodies and HIV-1 p24 antigen were NOT detected. There is no laboratory evidence of HIV infection.Performed By: #### HIV12 ####[facility] [address] [place], [place] [address]Dr. Nolvia ChangRPR QUANTon 23-67-4381Ynxwk Plasma Reagin, QuantNon-ReactiveNormal NonRea<1:1The [facility] CenterComment on above:Result Comment: Please Note: This test does not meet current guidelines for screening and diagnosis of syphilis. This test is intended for following treatment response in patients being treated for syphilis infection. To screen for syphilis infection, a reflex cascade that includes both RPR and a treponema-specific assay should be utilized, such as Treponema pallidum (Syphilis) Screening [place] (213850) or Rapid Plasma Reagin (RPR) Test With Reflex to Quantitative RPR and Confirmatory Treponema pallidum Antibodies (583643).Performed By: #### RPRQ #### [facility] [address] [place] [address] Dr. Nolvia RuvalcabaUS PREG ANATOMY SINGLEon 20-82-2044IB PREG ANATOMY SINGLE EXAMINATION: US PREG ANATOMY [...] Electronically authenticated by: KASEY NYE Date: 2021-06-18 16:55NormalThe [facility] CenterHEP B SURFACE AB QUALITATIVEon 69-33-7498Pjs B Surface Ab, Qual ReactiveNoChillicothe VA Medical CenterComment on above:Result Comment: Non Reactive: Inconsistent with immunity, less than 10 mIU/mL Reactive: Consistent with immunity, greater than 9.9 mIU/mLPerformed By: #### HBSABQL ####[facility] [address] [address]Dr. Nolvia RuvalcabaHEPATITIS C ANTIBODYon 11-77-0176Urc C Virus Ab<0.1Utrcqt4.0-0.9The [facility] on above:Result Comment: Negative: < 0.8 Indeterminate: 0.8 - 0.9 Positive: > 0.9 . The CDC recommends that a positive HCV antibody result be followed up with a HCV Nucleic Acid Amplification test (999251).Performed By: #### HIV12 #### [facility] [address] [place] [address] Dr. Nolvia Tomlin 1 AND 2 WITH REFLEXon 39-98-3114BOT Screen 4th Generation wRfxNon-ReactiveNormalNon ReactiveThe [facility] on above:Result Comment: HIV Negative HIV-1/HIV-2 antibodies and HIV-1 p24 antigen were NOT detected. There is no laboratory evidence of HIV infection.Performed By: #### HIV12 ####[facility] [address] [place], [place] [address]Dr. Nolvia Sandoval QUANTon 45-93-8939Imwob Plasma Reagin, QuantNon-ReactiveNormal NonRea<1:1The [facility] on above:Result Comment: Please Note: This test does not meet current guidelines for screening and diagnosis of syphilis. This test is intended for following treatment response in patients being treated for syphilis infection. To screen for syphilis infection, a reflex cascade that includes both RPR and a treponema-specific assay should be utilized, such as Treponema pallidum (Syphilis) Screening [place] (084836) or Rapid Plasma Reagin (RPR) Test With Reflex to Quantitative RPR and Confirmatory Treponema pallidum Antibodies (325825).Performed By: #### RPRQ ####[facility] [address] [address]Dr. Nolvia Ruvalcaba CHLAMYDIA/GONOCOCCUS THERON (SWAB/URINE/PAPon 43-29-4046Bcsjdewgd trachomatis, THERON NegativeNormalNegativeNationwide Children'S HospitalComment on above:Performed By: #### CT/NGNA ####[facility] [address] [place], [place] [address]Dr. Nolvia RuvalcabaNeisseria gonorrhoeae, NAANegativeNormalNegativeNationwide Children'S HospitalComment on above:Performed By: #### CT/NGNA ####[facility] [address] [place], [place] [address]Dr. Nolvia Ruvalcaba VAGINITIS/VAGINOSIS DNA PROBEon 50-21-9806Tstgvqh speciesNegativeNormalNegative The [facility] CenterComment on above:Performed By: #### HIV12 #### [facility] [address] [place] [address] Dr. Nolvia Hidalgodnerella vaginalisNegativeGolden Valley Memorial HospitalalNegSouthern [place] [facility] Comment on above:Performed By: #### HIV12 #### [facility] [address] [place] [address] Dr. Nolvia RuvalcabaTrichomonas vaginalisNegativeNormalNegativeNationwide Children'S Hospital Comment on above:Performed By: #### HIV12 #### [facility] [address] [place] [address] Dr. Nolvia RoqueP B SURFACE ANTIGEN SCREENon 48-08-7775TVpVf ScreenNegative NormalNegativeNationwide Children'S HospitalComment on above:Performed By: #### HBSANS ####[facility] [address] [place], [place] [address]Dr. Nolvia RuvalcabaHEPATITIS C VIRUS AB W/ REFLEX QUANTon 31-47-0014BOQ AB<0.1Normal 0.0-0.9The [facility] CenterComment on above:Performed By: #### HCVPCRR ####[facility] [address] [address]DrDinorah RuvalcabaInterpretation:CommentNormalThe [facility] CenterComment on above: Result Comment: Negative Not infected with HCV, unless recent infection is suspected or other evidence exists to indicate HCV infection.Performed By: #### HCVPCRR ####[facility] [address] [address]Dr. Nolvia RuvalcabaHIV 1 AND 2 WITH REFLEXon 42-76-0026EUP Screen 4th Generation wRfx Non-ReactiveNormalNon ReactiveThe [facility] CenterComment on above:Result Comment: HIV Negative HIV-1/HIV-2 antibodies and HIV-1 p24 antigen were NOT detected. There is no laboratory evidence of HIV infection.Performed By: #### HIV12 #### [facility] [address] [place] [address] Dr. Nolvia RuvalcabaRPR QUANTon 20-19-5681[place] Plasma Reagin, QuantNon-Reactive NormalNonRea<1:1The [facility] CenterComment on above:Performed By: #### RPRQ ####[facility] [address] [place], [place] [address]Dr. Nolvia RuvalcabaRUBELLA AB IGGon 83-39-0984Euepudk Antibodies, IgG1.50 indexNormal Immune >0.99The [facility] CenterComvon [facility] on above:Result Comment: Non-immune <0.90 Equivocal 0.90 - 0.99 Immune >0.99Performed By: #### HIV12 #### [facility] [address] [place] [address] Dr. Nolvia RuvalcabaCBMauro AUTO DIFFon 41-21-7471LHLQ #0.0 103/ulNormal0.0-0.1The [facility] CenterComment on above:Performed By: #### HIV12 #### [facility] [address] [place] [address] Dr. Nolvia RuvalcabaBasophils/100 WBC (Bld)0.3 %Normal0.2-2.0The [facility] Comment on above:Performed By: #### HIV12 #### [facility] [address] [address] [address] Nolvia Geiger #0.1 103/ulNormal0.0-0.7The [facility] CenterComment on above: Performed By: #### HIV12 #### [facility] [address] [place] [address] Dr. Nolvia Trivediosinophils/100 WBC (Bld)1.4 %Normal0.9-7.0The [facility] Comment on above:Performed By: #### HIV12 #### [facility] [address] [place] [address] Dr. Nolvia Trivedirythrocyte distribution width (RBC) [Ratio]12.4 %Cqcfpo09.0-15.0 The [facility] CenterComment on above:Performed By: #### HIV12 #### [facility] [address] [place] [address] Dr. Nolvia RuvalcabaHematocrit (Bld) [Volume fraction]40.7 %Fmgwre76.0-48.0The [facility] CenterComment on above:Performed By: #### HIV12 #### [facility] [address] [place] [address] Dr. Nolvia RuvalcabaHemoglobin (Bld) [Mass/Vol]13.5 g/zRAfqara95.0-16.0The [facility] CenterComment on above:Performed By: #### HIV12 #### [facility] [address] [place] [address] Dr. Nolvia Jiménez #0.04 10e3/ulCritically high0.00-0.03The [facility] Comment on above:Performed By: #### HIV12 #### [facility] [address] [place] [address] Dr. Nolvia Jiménez %0.4 %Normal0.0-0.5The [facility] CenterComment on above: Performed By: #### HIV12 #### [facility] [address] [place] [address] Dr. Nolvia Brewer #1.3 103/ulNormal1.2-3.8The [facility] CenterComment on above:Performed By: #### HIV12 #### [facility] [address] [place] [address] Dr. Nolvia Velazquezmphocytes/100 WBC (Bld)13.8 %Critically low20.5-60.0The [facility] CenterComment on above:Performed By: #### HIV12 #### [facility] [address] [place] [address] Dr. Nolvia Patel DIFF REQNONormalThe [facility] CenterComment on above: Performed By: #### HIV12 #### [facility] [address] [place] [address] Dr. Nolvia Verdin (RBC) [Entitic mass]30.1 loPvgvbp67.7-34.0The [facility] CenterComment on above:Performed By: #### HIV12 #### [facility] [address] [place] [address] Dr. Nolvia Verdin (RBC) [Mass/Vol]33.2 g/nIVlpdfk44.9-35.2The [facility] CenterComment on above:Performed By: #### HIV12 #### [facility] [address] [place] [address] Dr. Nolvia Lewis (RBC) [Entitic vol]90.8 kJIyslsz54.0-99.0The [facility] CenterComment on above:Performed By: #### HIV12 #### [facility] [address] [place] [address] Dr. Nolvia De Jesus #0.4 103/ulNormal0.3-0.8The [facility] CenterComment on above:Performed By: #### HIV12 #### [facility] [address] [place] [address] Dr. Nolvia Lezamaocytes/100 WBC (Bld)4.2 %Normal1.7-12.0The [facility] Comment on above:Performed By: #### HIV12 #### [facility] [address] [place] [address] Dr. Yilan ChangNEUT #7.5 103/ulCritically high1.4-6.5The [facility] Comment on above:Performed By: #### HIV12 #### [facility] [address] [address] [address] Nolvia Huiutrophils/100 WBC (Bld)79.9 %Critically high43.0-75.0The [facility] CenterComment on above:Performed By: #### HIV12 #### [facility] [address] [address] [address] Nolvia RuvalcabaPlatelet mean volume (Bld) [Entitic vol]9.3 fLCritically low 9.5-13.5The [facility] CenterComment on above:Performed By: #### HIV12 #### [facility] [address] [place] [address] Dr. Nolvia RuvalcabaPLT322 103/wjVpsgfu925-842Jeh [facility] CenterComment on above: Performed By: #### HIV12 #### [facility] [address] [place] [address] Dr. Nolvia RuvalcabaRBC4.48 106/ulNormal4.20-5.40The [facility] CenterComment on above:Performed By: #### HIV12 #### [facility] [address] [place] [address] Dr. Nolvia RuvalcabaWBC9.4 103/ulNormal4.0-11.0The [facility] CenterComment on above: Performed By: #### HIV12 #### [facility] [address] [address] [address] Nolvia RuvalcabaCULTURE URINEon 69-21-2358ENSSOVQ URINECulture Observations: LIGHT GROWTH OF MIXED GENITAL SPENCER. NO POTENTIAL PATHOGENS SEEN.NormalThe [facility] CenterComment on above:Performed By: #### URCX ####[facility] [address] [address]Dr. Nolvia Ruvalcaba GLYCOHEMOGLOBIN A1Con 22-20-1913FUM RECOMMENDATIONADA THERAPEUTIC TARGET 6.0 - 7.0 ACTION SUGGESTED > 7.0NormalThe [facility] CenterComment on above:Performed By: #### A1C #### [facility] [address] [place], [place] [address] Dr. Nolvia RuvalcabaGlucose [Mass/Vol]108 mg/dLFayette County Memorial HospitalComment on above:Performed By: #### A1C #### [facility] [address] [place], [place] [address] Dr. Nolvia RuvalcabaHbA1c (Bld) [Mass fraction]5.4 %Normal<=6.0[facility] Comment on above:Performed By: #### A1C #### [facility] [address] [place], [place] [address] Dr. Nolvia RuvalcabaTYPE AND SCREENon 77-97-4063FPBM AND SCREENNegativeFayette County Memorial HospitalComment on above:Performed By: #### TNS ####[facility] [address] [place], [place] [address]SrDr.Yilan RuvalcabaUS PREG TVon 52-71-3290MY PREG TVEXAMINATION: US PREG TV HISTORY: Missed period COMPARISON: [...] Electronically authenticated by: FRANCIA CRENSHAW Date: 2021-03-27 09:39[facility] Vital Signs Date TimeVital SignValuePerforming MyfpdkwdpVtaiixwx42-21-0790 14:32-0400Body mass index (BMI) [Ratio]29.08 kg/o2BwsyvcwxPatricia Kelly TIRE BUILDING SUPERVISOR Work Phone: [facility]ansonRmqkepcpdt62-37-4342 14:32-0400Body ihwbfg00.75 kgPatricia Kelly NP Work Phone: [facility]ansonKedwawpysm43-30-8239 14:32-0400Diastolic blood dfsqrpvi06 mm[Hg]Patricia Kelly TIRE BUILDING SUPERVISOR Work Phone: [facility]ansonFeybikjsav89-99-9177 14:32-0400Systolic blood kopxvxdz575 mm[Hg]Patricia Kelly TIRE BUILDING SUPERVISOR Work Phone: [phone] BransonGzfymvtkxs05-76-8475 10:11-0400Body mass index (BMI) [Ratio]28.89 kg/s5Dwchk Mary Lou DO Work Phone: [phone] [place], [place] [address]Wwsnklcrjf05-64-3448 10:11-0400Body envylj32.18 kgCorey Mary Lou DO Work Phone: [phone] [place], [place] [address]Hxgjojpfdp80-67-2199 10:11-0400Diastolic blood nubxvnzy05 mm[Hg]Arelis Mary Lou DO Work Phone: [phone] [place], [place] [address]Ufzbrcohal10-44-1009 10:11-0400Systolic blood mm[Hg]Arelis Mary Lou DO Work Phone: [phone] [place], [place] [address]Oahxiyvbrf69-76-9432 15:02-0400Body mass index (BMI) [Ratio]28.74 kg/m2Amy Ricardo ZHU Work Phone: [phone] [place], [place] [address]Nhxsucfpvv56-14-0482 15:02-0400Body atvgim96.73 kgAmy Ricardo PA Work Phone: [phone] [place], [place] [address]Ujwipqzcmp16-87-7519 15:02-0400Diastolic blood ysopzhta78 mm[Hg]Cindy ZHU Work Phone: [phone] [place], [place] [address]Zumsqaqmgz35-78-0914 15:02-0400Systolic blood clychnht428 mm[Hg]Cindy Thomas PA Work Phone: [phone] [place], [place] [address]Ovgttccqkc07-80-4266 15:04-0400Body mass index (BMI) [Ratio]28.28 kg/v4Cxfbc Mary Lou DO Work Phone: [phone] [place], [place] [address]Jszjhzuafe62-84-1653 15:04-0400Body .37 kgCorey Mary Lou DO Work Phone: [phone] [place], [place] [address]Gcvxdfctpv97-78-2460 15:04-0400Diastolic blood kyygbpcp85 mm[Hg]Arelis Mary Lou DO Work Phone: [facility]ansonPvpuimbhwy12-78-3046 15:04-0400Systolic blood rgfpyrhc462 mm[Hg]Arelis Mary Lou DO Work Phone: [facility]ansonZprcjxmcvv16-76-2339 15:37-0400Body mass index (BMI) [Ratio]27.06 kg/m2Cindy Thomas PA Work Phone: [facility]ansonUnbvrtpmue04-17-7464 15:37-0400Body briwwu57.74 kgAmy Ricardo PA Work Phone: [facility]ansonImarsvrmce30-68-5056 15:37-0400Diastolic blood qeuevggi59 mm[Hg]Cindy Thomas PA Work Phone: [facility]ansonMmpqrthbti27-01-7544 15:37-0400Systolic blood mm[Hg]Cindy Thomas MARKO Work Phone: [facility]ansonLemcvyiihl13-00-1458 09:48-0400Body mass index (BMI) [Ratio]26.72 kg/v9Pksia Mary Lou DO Work Phone: [facility]ansonVdxlqvherg53-40-7493 09:48-0400Body bvfeuq65.72 kgCorey Mary Lou DO Work Phone: [facility]ansonXnniyhfmns11-74-0771 09:48-0400Diastolic blood pkpbcncu42 mm[Hg]Arelis Mary Lou DO Work Phone: [facility]ansonDgbrdvistn79-40-6823 09:48-0400Systolic blood snkwvemk055 mm[Hg]Arelis Mary Lou DO Work Phone: [facility] BransonPnzmcsfcar79-72-1382 11:15-0500Body mfaehj236.72 cmMatthew Rosy Other [place] [employer] Other 01-11-2024 11:15-0500Body mass index (BMI) [Ratio] 26.76 kg/l3Dbigvjo Rosy Other [employer] Other 01-11-2024 11:15-0500Body .83 kgMapenny Gallegos Other [employer] Other 01-11-2024 11:15-0500Diastolic blood mm[Hg] Jenn Gallegos Other [employer] Other 01-11-2024 11:15-0500Respiratory rate16 /minJenn Gallegos Other [employer] Other 01-11-2024 11:15-1296SlI0% (BldA) [Mass fraction]99 % Jenn Gallegos Other [employer] Other 01-11-2024 11:15-0500Systolic blood imbynxps163 mm[Hg] Jenn Gallegos Other [employer] Other 03-23-2023 14:45-0400Body rhigsv633.72 cmMapenny Gallegos Other [employer] Other 03-23-2023 14:45-0400Body mass index (BMI) [Ratio] 27.85 kg/v1LtzjjteJenn Gallegos Other [employer] Other 03-23-2023 14:45-0400Body alovog19.1 kgJenn Gallegos Other [employer] Other 03-23-2023 14:45-0400Diastolic blood izdfkfpv73 mm[Hg] Jenn Gallegos Other [employer] Other 03-23-2023 14:45-0400Respiratory rate16 /minMattsyedsunny Gallegos Other [employer] Other 03-23-2023 14:45-7756LiQ8% (BldA) [Mass fraction]99 % Jenn Gallegos Other [employer] Other 03-23-2023 14:45-0400Systolic blood mlirviff294 mm[Hg] Jenn Gallegos Other [employer] Other 12-29-2022 16:30-0500Body soifxs021.72 cmRicheun Estrada Other [employer] Other 12-29-2022 16:30-0500Body mass index (BMI) [Ratio] 28.64 kg/f7TsuurqqMike Estrada Other [employer] Other 12-29-2022 16:30-0500Body .46 kgMike Estrada Other [employer] Other 12-29-2022 16:30-0500Diastolic blood vjfpgtuu82 mm[Hg] Mike Nileansley Other [employer] Other 12-29-2022 16:30-0500Respiratory rate16 /minMike Estrada Other [employer] Other 12-29-2022 16:30-9451YzX3% (BldA) [Mass fraction]97 % Mike Etsrada Other [employer] Other 12-29-2022 16:30-0500Systolic blood ekxkdbfs716 mm[Hg] Mike Estrada Other [facility] [place] Other 12-29-2021 16:15-0500Body ujyeae026.72 cmJenn Gallegos Other [employer] Other 12-29-2021 16:15-0500Body mass index (BMI) [Ratio] 27.37 kg/a2FppsqglJenn Gallegos Other [employer] Other 12-29-2021 16:15-0500Body dzoopk78.65 kgMapenny Gallegos Other [employer] Other 12-29-2021 16:15-0500Diastolic blood rsywtqyg59 mm[Hg] Jenn Gallegos Other [employer] Other 12-29-2021 16:15-0500Respiratory rate16 /minJenn Gallegos Other [employer] Other 12-29-2021 16:15-4549LpF6% (BldA) [Mass fraction]99 % Jenn Gallegos Other [employer] Other 12-29-2021 16:15-0500Systolic blood whqevxec357 mm[Hg] Jenn Gallegos Other [employer] Other Encounters Encounter DateEncounter TypeCare ProviderFacilityStart: 11-20-2024 End: 30-70-6040Kratxybv flow sheetPatricia Klely TIRE BUILDING SUPERVISOR Work Phone: NOSR Nevis OBGYNComment on above: size inconsistent with dates ([facility]) (Primary Dx); Third trimester ([facility]); 30 weeks gestation of ([facility])Start: 11-20-2024 End: 76-73-2370cpcrcmxzubNWKXYXVH EBERLYNot AvailableStart: 11-20-2024 End: 12-52-0676Bdenbl Joe Kelly TIRE BUILDING SUPERVISOR Work Phone: [facility]is OBGYNStart: 11-20-2024 End: 13-46-7403Weilog flowsheetPatricia Kelly TIRE BUILDING SUPERVISOR Work Phone: [facility] Ancelmo OBGYNStart: 11-05-2024 End: 44-85-2942Hvzlbn flowsheetCorey Mary Olu DO Work Phone: [facility]is OBGYNStart: 11-05-2024 End: 36-23-9771Gdpxaf flowsheetCorey Mary Lou DO Work Phone: [facility]celmo OBGYNStart: 11-05-2024 End: 47-98-8129Vvooydnao Result EncounterPatricia Kelly TIRE BUILDING SUPERVISOR Work Phone: NOMS External Department UnsolicitedStart: 11-05-2024 End: 88-28-3023Caipkuex flow sheetCorey Mary Lou DO Work Phone: NOMS Ancelmo OBGYNComment on above:Anemia, unspecified type (Primary Dx); Third trimester ([facility]); 28 weeks gestation of ([facility])Start: 11-05-2024 End: 15-36-7196tgutxrdelzVOGAB FAZIONot AvailableStart: 10-24-2024 End: 46-68-3606Amhqnexb flow Eric ZHU Work Phone: NOMS Ancelmo OBGYNComment on above:26 weeks gestation of ([facility]); Second trimester ([facility]); Anemia during in second trimester ([facility])Start: 10-24-2024 End: 53-66-4229fqinvingrwMAG RAMEYNot AvailableStart: 10-24-2024 End: 92-01-5018Ftfzke flowsheetCindy ZHU Work Phone: [facility]celmo OBGYNStart: 10-24-2024 End: 56-78-1928Yzcewx flowsheetCindy ZHU Work Phone: NOLQ Nevis OBGYNStart: 10-08-2024 End: 55-59-6012Ludurtubn Result EncounterCorey Mary Lou DO Work Phone: NOFI External Department UnsolicitedStart: 10-08-2024 End: 75-71-6489Youglddpv Result EncounterCorey Mary Lou DO Work Phone: noms External Department UnsolicitedStart: 09-26-2024 End: 67-29-8569Uqdbrjpr flow sheetCorey Mary Lou DO Work Phone: NORO Ancelmo OBGYNComment on above:Diabetes mellitus screening; Second trimester ([facility]); 22 weeks gestation of ([facility])Start: 09-26-2024 End: 03-78-7346rikbvqvrfzMMCKZ FAZIONot AvailableStart: 09-26-2024 End: 52-09-3354Mulden flowsheetCorey Mary Lou DO Work Phone: NONV Ancelmo OBGYNStart: 09-26-2024 End: 01-09-0931Tsapwn flowsheetCorey Mary Lou DO Work Phone: [facility] Ancelmo OBGYNStart: 09-13-2024 End: 79-68-6733ngzkhlrqthJBY RAMTREVORNot AvailableStart: 08-29-2024 End: 07-50-7697Zqcpltx encounter procedureCindy ZHU Work Phone: NOMS HealthcareStart: 08-29-2024 End: 21-81-3991Nnzbcdov preventive med est patient 18-39 yrsCindy ZHU Work Phone: NOMS BCP OBComment on above:Well woman exam with routine gynecological exam; Screening, , for anatomic survey ([facility]); Exposure to STD; Need for maternal serum alpha-protein (MSAFP) screening ([facility]); Second trimester ([facility]); 18 weeks gestation of ([facility])Start: 08-29-2024 End: 68-36-7655whrmuqfsxwDLP Emilie AvailableStart: 08-29-2024 End: 75-46-1147Wzcwty flowsheetCindy ZHU Work Phone: [facility] BCP OBStart: 08-29-2024 End: 15-48-4057Kgiyaf flowsheetCindy ZHU Work Phone: [facility]OM[facility] BCP OBStart: 08-29-2024 End: 50-16-5578Fxfwqhsdh Result EncounterCindy ZHU Work Phone: NOMS External Department UnsolicitedStart: 08-29-2024 End: 11-12-2302Uylkrqef Result EncounterCindy ZHU Work Phone: NOMS External Department UnsolicitedStart: 08-02-2024 End: 74-28-2926Evoyey flowsheetCorey Mary Lou DO Work Phone: [facility]OM[facility] BCP OBStart: 08-02-2024 End: 72-68-5356Owcdyn flowsheetCorey Mary Lou DO Work Phone: [facility] BCP OBStart: 08-02-2024 End: 20-44-0119Zzlnfwuu flow sheetCorey Mary Lou DO Work Phone: [facility]OM[facility] BCP OBComment on above:Second trimester ([facility]); 14 weeks gestation of ([facility])Start: 08-02-2024 End: 14-75-1544wsrcllkjmkIQEQK FAZIONot AvailableStart: 07-24-2024 End: 91-87-2137Zlcpbrfrq Result EncounterCorey Mary Lou DO Work Phone: NOMS External Department UnsolicitedStart: 07-24-2024 End: 79-46-0583Clmmffkfg Result EncounterCorey Mary Lou DO Work Phone: [facility]OMS External Department UnsolicitedStart: 07-05-2024 End: 44-30-5228ddntaqvjnbJCXGDASR EBERLYNot AvailableStart: 02-24-2023 End: 19-13-9780kgqmocfatjTsybyta Rosy Other [place] [employer] Other Start: 98-17-8750Twywrfbpt for general adult medical examination without abnormal findingsMattsyedw RosyDIGN[facility] Julio Start: 92-21-0502Ioxhesqi preventive med est patient 18-39 yrsMattsyedw RosyDIGN[facility] Family Medicine [place]Start: 05-06-2022 End: 52-26-9516aoufuqjwmxHzhxrng Rosy Other [place] [employer] Other Start: 22-42-1004Brjwwi outpatient visit 15 minutes Jenn RosyDIGN[facility] Family Medicine [place]Start: 03-10-2022 End: 33-60-3541wjbxhupdopWELXCNM WIDMERFacility:W7Ewbmt: 02-11-2022 End: 67-01-5769ztaclccxpzTprlhlr Natalie Other [place] [employer] Other Start: 52-38-6299Wzcztdfyh for general adult medical examination without abnormal findingsMike NatalieDIGN[facility] [place] Start: 24-22-0350Htabiwid preventive med est patient 18-39 yrsRicheun NatalieDIGN[facility] Family Medicine [place]Start: 12-10-2021 End: 66-37-5763pxxgjlbmlqDIQHAVX WIDMERFacility:O0Zvace: 11-03-2021 End: 36-75-4957Gihldfkuvh and management of inpatientMATTHEW WIDMERFacility:H1 Start: 52-07-1222Pdprbljsh for preprocedural laboratory examinationDR [facility]an Private Hospitaltart: 10-31-2021 End: 33-64-4075syrrrrkkklEBPHADU WIDMERFacility:S5Jhlqa: 10-31-2021 End: 94-88-5290Rramaonsw for preprocedural laboratory examinationLEIGHPENNY ROSY Facility:O8Ssjns: 10-14-2021 End: 19-02-2338gtlklhvlkoRYTVHZM WIDMERFacility:C1Ihyeo: 08-28-2021 End: 88-10-7524yjfhwutkbmUITXTNW WIDMERFacility:Y9Mrrxp: 08-18-2021 End: 28-32-9343pfqlzvycvpIK ARELIS FAZIOFacility:U0Yzxto: 07-30-2021 End: 63-78-4280ttimlutyrkRG ARELIS FAZIOFacility:D3Isldp: 07-00-9154zxzlrkmvvcQZ ARELIS FAZIOFacility:J4Kaepv: 07-14-2021 End: 24-29-9798xyqzoffydiGGKHJFYV EBERLYFacility:W8Znmpi: 06-18-2021 End: 36-73-9352upyopjkpxuOJYZYKH WIDMERFacility:P7Bdbdi: 05-29-2021 End: 81-41-8490xdlfspwrwhRUMMUCH WIDMERFacility:F0Wkmxd: 05-25-2021 End: 66-68-9883uscklbnuvaVD ARELIS FAZIOFacility:M1Dlqsh: 04-27-2021 End: 31-42-9085dqeuphdokvOEJPCSJ WIDMERFacility:G9Jnsbq: 03-27-2021 End: 44-17-3135rhragimvxoHG ARELIS FAZIOFacility:T7Tqlfh: 02-11-2021 End: 15-27-3815ptwgwnaoivJnkwhtm Rosy Other [facility] [place] Other Start: 48-92-7474Ambyybgft for general adult medical examination without abnormal findingsRobert Wood [facility] Start: 58-89-7453Bdvjqbpu preventive med est patient 18-39 yrsMattNorthridge Hospital Medical CenteryStart: 03-74-2030Dgbpjhxsk encounterMattNorthridge Hospital Medical CenteryStart: 01-03-2018 End: 42-32-5131Xgesred encounter procedureKim E KnightFacility:[facility] Procedures DateProcedureProcedure DetailPerforming ClinicianStart: 61-69-2597Abjer dip stick/tablet rgnt non-auto w/o micrscpKristina Robin TIRE BUILDING SUPERVISOR Work Phone: Start: 26-62-3376RWM CBC WITH AUTO DIFFKristina Robin TIRE BUILDING SUPERVISOR Work Phone: Start: 94-47-6943Unyhc dip stick/tablet rgnt non-auto w/o micrscpCorey Mary Lou DO Work Phone: Start: 21-60-3652Vbrad dip stick/tablet rgnt non-auto w/o micrscpAmy Ricardo ZHU Work Phone: Start: 39-70-8893UHA CBC WITH AUTO DIFFCorey Mary Lou DO Work Phone: Start: 01-55-3238Yjxje dip stick/tablet rgnt non-auto w/o micrscpCorey Mary Lou DO Work Phone: Start: 21-22-6196ZSNKNMAFP VAGINITIS (HTRX)Cindy ZHU Work Phone: Start: 65-00-8666Pdocz dip stick/tablet rgnt non-auto w/o micrscpAmy Ricardo ZHU Work Phone: Start: 71-91-8333LZJ,APTIMA HPV,AGE GDLNAmy Ricardo ZHU Work Phone: Start: 71-78-0555Kdqrcsxklyy observation [Identifier] in Cervix by Cyto stainCorey Mary Lou DO Work Phone: Start: 27-19-9005Buchu dip stick/tablet rgnt non-auto w/o micrscpCorey Mary Lou DO Work Phone: Start: 89-54-2424MYI CBC WITH AUTO DIFFCorey Mary Lou DO Work Phone: Start: 39-17-7615CHG TESTCorey Mary Lou DO Work Phone: Start: 40-62-8546Yntyrvtbilr observation [Identifier] in Cervix by Cyto stainCorey [employer] Phone: Start: 82-54-6595Voyjgwgoad of Products of Conception, Low Cervical, Open ApproachMATTHEW ROSY Plan of Treatment DateCare ActivityDetailAuthorStart: 95-29-5834Otnvjbdpb for malignant neoplasm of cervixNOMS HealthcareStart: 67-65-8812Mektoyjcm for malignant neoplasm of cervixNOMS HealthcareStart: 11-20-2024 End: 50-00-7670Bnugfjn encounter procedureNOMS Nevis OBGYNComment on above: ArrivedStart: 11-20-2024 End: 73-04-6869UB for pregnancyUS OB follow up transabdominal approach Imaging Routine size inconsistent with dates ([facility]) Expected: 11/20/2024, Expires: 03/23/2025[facility] [employer] Work Phone: comment on above:Expected: 11/20/2024, Expires: 03/23/2025Start: 11-05-2024 End: 31-33-2744Lziudby encounter procedureNOMS Ancelmo OBGYNComment on above: ArrivedStart: 10-24-2024 End: 63-09-5031Iijngzg encounter procedureNOMS Ancelmo OBGYNComment on above: ArrivedStart: 22-89-5503Xjzumzavc vaccinationNOMS HealthcareStart: 09-26-2024 End: 17-88-0980Elulbmt encounter procedureNOMS BCP OBComment on above:Arrived Start: 09-26-2024 End: 06-50-7818DJN panel - Blood by Automated countCBC Lab Routine Diabetes mellitus screening Expected: 09/26/2024 (Approximate), Expires: 09/26/2025[facility] [employer] Work Phone: comment on above:Expected: 09/26/2024 (Approximate), Expires: 09/26/2025Start: 09-26-2024 End: 55-87-9337Txrsinfajzo of glucose 1 hour after glucose challenge for glucose tolerance testGlucose tolerance, 1 hour Lab Routine Diabetes mellitus screening Expected: 09/26/2024 (Approximate), Expires: 09/26/2025[facility] HealthcareComment on above:Expected: 09/26/2024 (Approximate), Expires: 09/26/2025Start: 09-13-2024 End: 94-98-8963Hxtpmojteadz / ancillary services xozjutwcho54/31/2025 2:30 PM EDT Ancillary Procedure [facility] [address] [place] [address] [facility] BCP OBStart: 08-29-2024 End: 80-34-6492Ahejyvz encounter cayponewh38/16/2025 3:30 PM EDT Routine [facility] [address] [place] [address] Cindy Thomas PA [address] [place], [place] [id number] ArrivedNOJEROLD [facility]HELPS [facility] OBComment on above: ArrivedStart: 08-29-2024 End: 22-26-8650Qcnrt fetoprotein, maternalAlpha fetoprotein, maternal Lab Routine Need for maternal serum alpha-protein (MSAFP) screening ([facility]) Expected: 08/29/2024 (Approximate), Expires: 09/29/2024[facility] HealthcareComment on above:Expected: 08/29/2024 (Approximate), Expires: 09/29/2024Start: 08-29-2024 End: 66-84-8257KY for pregnancyUS OB 14+ weeks anatomy scan Imaging Routine Screening, , for anatomic survey ([facility]) Expected: 08/29/2024, Expires: 11/29/2024[facility] HealthcareComment on above:Expected: 08/29/2024, Expires: 11/29/2024Start: 08-02-2024 End: 61-32-8513Oyvxetw encounter procedureRIVERSIDE COUNTY [facility] OBComment on above:Arrived Start: 81-25-8493Eajhkagkh for malignant neoplasm of cervixHPV/CotestNOMS HealthcareCBC W Auto Differential panel - BloodCBC and differential Lab Routine Anemia, unspecified type Ordered: 11/05/2024[facility] Work Phone: comment on above:Ordered: 11/05/2024HLAMYDIA TRACHOMATIS (GENITO/STI)CHLAMYDIA TRACHOMATIS (GENITO/STI) Lab Routine Exposure to STD Ordered: 08/29/2024[facility] HealthcareComment on above:Ordered: 08/29/2024 Cytology Cervical or vaginal smear or scraping studyPap Smear Pathology and Cytology Routine Well woman exam with routine gynecological exam Ordered: [facility] Healthcare Work Phone: comment on above:Ordered: 08/29/2024Human papilloma virus DNA [Presence] in Unspecified specimen by Probe with amplificationHPV DNA probe, amplified Microbiology Routine Well woman exam with routine gynecological exam Ordered: 08/29/2024[facility] BransonComment on above:Ordered: 08/29/2024 Neisseria gonorrhoeae DNA [Presence] in Unspecified specimen by THERON with probe detectionNeisseria gonorrhea DNA probe, direct Lab Routine Exposure to STD Ordered: 08/29/2024[facility] BransonComment on above:Ordered: 08/29/2024 SURESWAB(R) ADVANCED VAGINITIS PLUS, TMASURESWAB(R) ADVANCED VAGINITIS PLUS, TMA Pathology and Cytology Routine Exposure to STD Ordered: 08/29/2024[facility] BransonComment on above:Ordered: 08/29/2024 Immunizations Immunization DateImmunizationNotesCare SyppujudJxpacxos74-69-3547IOWYV-12 Vaccine Pfizer - Documentation Purposes OnlyMatthew Rosy Other [employer] Other [id number]-33 Vaccine Pfizer - Documentation Purposes OnlyMatthew Rosy Other [employer] Other 10-14-205586-32-6525raafhotin, injectable, quadrivalent, preservative freeMatthew Rosy Other [employer] Other 10-14-887070-75-7780lsoloyojs virus vaccine, unspecified formulationZandray Mary Lou DO Work Phone: [facility] Healthcare Payers DatePayer CategoryPayerPolicy [id number] [id number] 2023Medicaid (Managed Care)[place] [id number] Ckifardfo48049603165-51-2141Owhp-rhb79-12-0510Ciqpmtz [id number] .1.753410.3.579.[id number] .1.163355.3.579.2.98624-29-1309Kzugdpe4845422 .1.177923.3.579.2.06730-76-5469Odwzfnu7657628 .1.941554.3.579.[id number] 2.16.840.1.072060.3.579.[id number] 2.16.840.1.979598.3.579.2.72124-72-7113Qzjlyny6982990 2.16840.1.808628.3.579.2.89929-36-9951Ckxyizl4609348 2.840.1.230395.3.579.2.26444-41-4728Oapcxxj2121339 2.840.1.773080.3.579.2.36493-48-3680Udrvntr2517659 2.840.1.977487.3.579.2.72281-38-4736Ubajyis1137138 2.840.1.931352.3.579.2.62911-97-4999Pstbnvb6250419 2.840.1.917974.3.579.2.23364-82-6771Jmknvbt6285564 2.840.1.843716.3.579.2.67501-87-8919Akljfse0754747 2.840.1.056043.3.579.2.93127-47-6948Bihrxvq0147275 2.840.1.749925.3.579.2.45038-02-8913Hefxyni77828806 2.840.1.441066.3.579.2.836426-47-1416Spvskhu89835856 2.840.1.550956.3.579.2.338148-65-0532Dpxucvq28264724 2.840.1.515891.3.579.2.452723-97-6822Xsaieok96236352 2.840.1.095335.3.579.2.170719-31-1646Wlinvru24024636 2.0.1.021450.3.579.2.300742-88-3496Pmvyxpv41627441 2..0.1.305223.3.579.2.308966-76-7534Zjwyblg18746151 2..0.1.451072.3.579.2.422127-48-0724Ctqdsrd9367505 2.0.1.899430.3.579.2.169487-69-8714Fkfrlyg4857320 2.0.1.140757.3.579.2.201082-99-8091WfacTohatchi Health Care [id number] 2.0.2.905415.079119 [id number] [id number] [id number] 2.0.1.241933.3.579.2.531 Social History DateTypeDetailFacilityUnknown if ever smokedJacksontown [place] Other [facility] At [facility] [place] Other Tobacco smoking status NHISTobacco smoking consumption unknownCox BransonStart: 47-91-4755QvzjnlcgeDKRB HealthcareStart: 05-48-1674Siy assigned at birthNot on [facility] Clinical Notes 02-11-2021 to 11-20-2024 Note Date & HuheRpytLqnyouhg33-63-0283 History of Present illness Narrative* Patricia Kelly, YOLA - 11/20/2024 2:30 PM EDT Reason for Appointment: Patient ID: Rubina Mckeon is a 34 y.o. female who [...] nursing note reviewed. Exam conducted with a nurse special present. Vitals: Estimated body mass index is 29.08 kg/m as calculated from the following: Height as of 07/14/23: 5' 8 . Weight as of this encounter: 191 lb 4 oz. BP: 122/60 Patient's last menstrual period was 05/08/2024. ASSESSMENT & PLAN ICD-10-CM 1. size inconsistent with dates ([facility]) O26.849 2. Third trimester ([facility]) Z34.93 POCT urinalysis dipstick manually resulted 3. 30 weeks gestation of ([facility]) Z3A.30 Return OB: Patient presents today for [...] of: Patricia Kelly NP documented in this encounterCox BransonFgykfuepgo13-19-2649 History of Present illness Narrative* Patricia Kelyl NP - 11/05/2024 10:00 AM EDT Reason for Appointment: Patient ID: Rubina Mckeon is a 34 y.o. female who [...] D64.9 CBC and differential 2. Third trimester ([facility]) Z34.93 POCT urinalysis dipstick manually resulted 3. 28 weeks gestation of ([facility]) Z3A.28 Return OB: Patient presents today for a routine obstetrics appointment. Patient is currently 28w3d . Patient states she is doing well but has complaints of being tired due to current . Patient has verbalizes frequent movement. labor precautions was discussed/given and patient was instructed to perform kick counts three times a day. Patient is currently taking iron and wewill repeat a CBC today. Orders Placed This Encounter Procedures CBC and differential POCT urinalysis dipstick manually resulted Follow Up: Patient is to return to office in 2 week for routine OB appointment. Documented by Patricia Kelly NP on behalf of: Arelis Barreto DO documented in this encounterCox BransonUkzkwhtgia66-93-6414 History of Present illness Narrative* MARKO Phelps - 10/24/2024 3:00 PM EDT Reason for Appointment: Patient ID: Rubina Mckeon is a 34 y.o. female who [...] PLAN ICD-10-CM 1. 26 weeks gestation of ([facility]) Z3A.26 POCT urinalysis dipstick manually resulted 2. Second trimester ([facility]) Z34.92 POCT urinalysis dipstick manually resulted 3. Anemia during in second trimester ([facility]) O99.012 Return OB: Patient presents today for [...] behalf of: MARKO Phelps documented in this encounterCox BransonDrcitoikyf54-97-1357 History of Present illness Narrative* Maribell Erin, YADI - 09/26/2024 2:50 PM EDT Reason for Appointment: Patient ID: Rubina Mckeon is a 34 y.o. female who [...] nursing note reviewed. Exam conducted with a nurse special present. Vitals: Estimated body mass index is 28.28 kg/m as calculated from the following: Height as of 07/14/23: 5' 8 . Weight as of this encounter: 186 lb. BP: 118/70 Patient's last menstrual period was 05/08/2024. ASSESSMENT & PLAN ICD-10-CM 1. Diabetes mellitus screening Z13.1 CBC Glucose tolerance, 1 hour CBC Glucose tolerance, 1 hour 2. Second trimester ([facility]) Z34.92 POCT urinalysis dipstick manually resulted 3. 22 weeks gestation of ([facility]) Z3A.22 Patient presents today for a routine obstetrics appointment. Patient is currently 22w5d with a Estimated Date of Delivery: 01/25/25. Pt given glucola and cbc orders to have obtained. Pt to return in 4 weeks Documented by Maribell Khan LPN on behalf of: Arelis Barreto DO documented in this encounterCox BransonJwflmgsrey06-89-2341 History of Present illness Narrative* MARKO Phelps - 08/29/2024 3:30 PM EDT Reason for Appointment: Patient ID: Rubina Mckeon is a 33 y.o. female who [...] nursing note reviewed. Exam conducted with a nurse special present. Vitals: Estimated body mass index is 27.06 kg/m as calculated from the following: Height as of 07/14/23: 5' 8 . Weight as of this encounter: 178 lb. BP: 122/70 Patient's last menstrual period was 05/08/2024. ASSESSMENT & PLAN ICD-10-CM 1. Well woman exam with routine gynecological exam Z01.419 Pap Smear HPV DNA probe, amplified 2. Screening, , for anatomic survey ([facility]) Z36.89 US OB 14+ weeks anatomy scan 3. Exposure to STD Z20.2 SURESWAB(R) ADVANCED VAGINITIS PLUS, TMA CHLAMYDIA TRACHOMATIS (GENITO/STI) Neisseria gonorrhea DNA probe, direct 4. Need for maternal serum alpha-protein (MSAFP) screening ([facility]) Z36.1 Alpha fetoprotein, maternal Alpha fetoprotein, maternal 5. Second trimester ([facility]) Z34.92 6. 18 weeks gestation of ([facility]) Z3A.18 POCT urinalysis dipstick manually resulted Return [...] behalf of: MARKO Phelps documented in this encounterCox [id number] History of Present illness Narrative* MARKO Phelps - 08/02/2024 9:20 AM EDT Reason for Appointment: Patient ID: Rubina Mckeon is a 33 y.o. female who [...] ASSESSMENT & PLAN ICD-10-CM 1. Second trimester ([facility]) Z34.92 POCT urinalysis dipstick manually resulted 2. 14 weeks gestation of ([facility]) Z3A.14 Return OB: Patient presents today [...] of: Arelis Barreto DO documented in this encounterCox [id number] Evaluation note* Encounter Date Diagnosis Assessment Notes Treatment Notes Treatment Clinical Notes Feb, Well adult exam (ICD-10 - Z00.00 ) 32-year-old female who is overall doing very [...] is completely normal. She is to follow-up in1 year or sooner if an acute issue arises. Feb,nxiety with depression (ICD-10 - F41.8) Feb,Moderate persistent asthma without complication (ICD-10 - J45.40) [employer] Other 03-23-2023 Evaluation note* Encounter Date Diagnosis [...] would consider doing a tendon sheath injection. [employer] Other 12-29-2022 Evaluation note* Encounter Date Diagnosis Assessment Notes Treatment Notes Treatment Clinical Notes Jan, Moderate persistent asthma witho ut complication (ICD-10 - J45.40) Jan,Well adult exam (ICD-10 - Z00.00)31-year-old female who is overall very healthy who is managed for moderate asthma as well as anxiety with depression with medications. Currently she has not needed her albuterol except when she gets a URI. She was doing very well with fluoxetine but stopped due to her and reports that shehas managed well with out restarting it. She does experience periods of increased anxiety and is wanting something to help decrease periods of increased anxiety without being on something daily. Advised to start hydroxyzine 25mg orally prn for anxiety. She is otherwise doing well and is not due forany labs or screenings at this time. She is to follow-up in 1 year sooner if any acute issue arises. Jan,nxiety (ICD-10 - F41.9) [employer] Other 09-20-2022 NoteOPERATIVE NOTE OPERATION DATE: 11/03/2021 PROCEDURE: Repeat low transverse section. PREOPERATIVE DIAGNOSIS: 1. Intrauterine 39 weeks. 2. Previous . POSTOPERATIVE DIAGNOSIS: 1. Intrauterine 39 weeks. 2. Previous . ANESTHESIA: Spinal with Duramorph. SURGEON: Arelis Barreto D.O. DIRT SUPERVISOR: JESSE Cruz URINE OUTPUT: Yellow and clear. [...] Recovery Room in stable condition.[facility] [id number] Note DISCHARGE SUMMARY DISCHARGE DATE: 11/13/2021 PRIMARY [...] and no longer on narcotics.[facility] [id number] Evaluation note * Encounter Date Diagnosis Assessment Notes Treatment Notes Treatment Clinical Notes Jan, Well adult exam (ICD-10 - Z00.00 ) 30-year-old female who is overall very healthy and only has moderate asthma as well as anxiety withdepression is her chronic medical conditions. Currently she [...] year sooner if any acute issue arises. Jan,nxiety with depression (ICD-10 - F41.8) Jan,Moderate persistent asthma without complication (ICD-10 - J45.40) [employer] Other Evaluation noteNo InformationNortCoreworks Other Evaluation note* Diagnosis Second trimester ([facility]) state, incidental 14 weeks gestation of ([facility]) documented [facility] this encounter [facility]* Diagnosis Well woman exam with routine gynecological exam Routine gynecological examination Screening, , for anatomic survey ([facility]) Encounter for anatomic survey Exposure to STD Need for maternal serum alpha-protein (MSAFP) screening ([facility]) Second trimester ([facility]) state, incidental 18 weeks gestation of ([facility]) documented in this encounter [facility]* Diagnosis Diabetes mellitus screening Screening for diabetes mellitus Second trimester ([facility]) state, incidental 22 weeks gestation of ([facility]) documented in this encounter [facility]* Diagnosis 26 weeks gestation of ([facility]) Second trimester ([facility]) state, incidental Anemia during in second trimester ([facility]) documented in this encounter [facility]* Diagnosis Anemia, unspecified type- Primary Third trimester ([facility]) state, incidental 28 weeks gestation of ([facility]) documented in this encounter [facility]* Diagnosis size inconsistent with dates ([facility])- Primary Third trimester ([facility]) state, incidental 30 weeks gestation of ([facility]) documented in this encounter [facility] HealthcareHistory general Narrative - Reported* Type Description Date Medical History stomach issues Medical HistoryAsthmaMedical Historylow ironSurgical Historystomach surgery Surgical HistoryC sectionHospitalization Historychildbirths [employer] Other Summary Purpose Family History No Family History Records FoundNo Family History Records FoundNo Family History Records Found Advance Directives No Advanced Directives Records FoundNo Advanced Directives Records FoundNo Advanced Directives Records Found Additional Source Comments INFORMATION SOURCE (unrecogn ized section and content) DATE CREATED AUTHOR 03/20/2018 [facility] DATE CREATED AUTHOR AUTHOR'S ORGANIZ ATION 03/16/2022 [facility] DATE CREATED AUTHOR AUTHOR'S GENOVEVA JUNG 11/23/2024 [facility] EPIC REASON FOR VISIT (unrecogniz ed section and content) ReasonCommentsRoutine Visitleft wrist sore and is painful when pressure [...] BE BASED ON THE PRIMARY CLINICAL RECORDS. [employer] provides no warranty or guarantee of the accuracy or completeness of information in this document.
[2024-12-05 13:40] VITALS: BP 118/59; PULSE 83; TEMP 36.1
== END 2024-12-05 15:10 | disposition home or self-care (01) ==
LOC: FBC 13:25
PROVIDERS: Admitting Provider Obstetrics & Gynecology; Visit Provider Obstetrics & Gynecology
DX: O47.03 False labor before 37 completed weeks of gestation, third trimester (principal); Z3A.32 32 weeks gestation of pregnancy
CPT/HCPCS: G0378; G0379

== ENCOUNTER 2024-12-20 07:34 | Observation (INO) | payer BC, OTHER, SELFPAY ==
--- OUTSIDE RECORDS SUMMARY | 2023-12-20 03:45 | XMS_ITS ---
Author Organization [facility] vices Address [address] [place], [place] [id number] Care Team Providers Care Heading Matcher And Assembler Name Role Phone Alma Jolley Unavailable [phone] REASON FOR VISIT Recall (A) 33 Social History Sex Assigned At : Social History Observation Description Sex Assigned At Female Encounters Encounter Location Date Provider Diagnosis [facility] [address], [place] [id number] 12/20/2023 Alma Jolley Plan Of Treatment No Information Progress Notes * Arti MCKEON NDOB:[birth year] (34 yo F)Acc No.[id number]:12/20/2023 Patient:?Arti MCKEON :?Alma Jolley DDSDOB:1990???Age:33 Y ???Sex:FemaleDate:12/20/2023hone:[phone]:[address] [place], [place] [id number] Subjective: * Chief Complaints: * 1 . Recall (A) 33. * Medical History: Objective: * Vitals: Assessment: Plan: * Treatment: * Billing Information: * Visit Code: * Procedure Codes: * Electronic signature of Alma Jolley DDS on 12/20/2024 at 07:38 AM EST Sign off status: Pending * Provider: Roxana Jolley DDS Date: 02/18/2023 Generated for Printing/Faxing/eTransmitting on:?12/20/2024 07:38 AM EST
--- OUTSIDE RECORDS SUMMARY | 2024-11-20 13:30 | XMS_ITS | Encounter Summary ---
Author Organization [facility] Address [address] [facility] [place] [address] Care Team Providers Care Evp Operations Name Role Phone Unavailable Primary Care Provider Unavailabl e Reason for Visit * ReasonCommentsRoutine Visit Encounter Details DateTypeDepartmentCare Team (Latest Contact Info)Zvfnugjthul54/07/2025 2:30 PM EDTRoutine MOI [facility] [address] [place] [address] Patricia Kelly, YOLA [address] [address] size inconsistent with dates ([facility]) (Primary Dx); Third trimester ([facility]); 30 weeks gestation of ([facility]) Social History Tobacco UseTypesPacks/DayYears UsedDateSmoking Tobacco: Never Assessed Estimated Date of VuwmandxKggdzjhyYjw63/12/2025Based on UltrasoundSex and Gender InformationValueDate RecordedSex Assigned at BirthNot on fileLegal SexFemale 04/28/2022 6:54 PM EDTGender IdentityNot on fileSexual OrientationNot on file documented as of this encounter Last Filed Vital Signs Vital SignReadingTime TakenCommentsBlood Zpbvjnwx645/6011/20/2024 2:32 PM EDT Pulse--Temperature--Respiratory Rate--Oxygen Saturation--Inhaled Oxygen Concentration--Ivmybc49.8 kg (191 lb 4 oz)11/20/2024 2:32 PM EDTHeight--Body Mass Index29.0807/14/2023 11:01 AM EDTdocumented in this encounter Progress Notes * Patricia Kelly NP - 11/20/2024 2:30 PM EDT Reason for Appointment: Patient ID: [...] nursing note reviewed. Exam conducted with a can closing machine operator present. Vitals: Estimated body mass index is 29.08 kg/m?? as calculated from the following: Height as of 07/14/23: 5' 8 . Weight as of this encounter: 191 lb 4 oz. BP: 122/60 Patient's last menstrual period was 05/08/2024. ASSESSMENT & PLAN ICD-10-CM 1. size inconsistent with dates ([facility]) O26.849 2. Third trimester ([facility]) Z34.93 POCT urinalysis dipstick manually resulted 3. 30 weeks gestation of ([facility]) Z3A.30 Return OB: Patient presents today for a routine obstetrics appointment. Patient is currently 30w4d . Patient states she is doing well [...] by Patricia Kelly NP on behalf of: Patricia Kelly NP documented in this encounter Plan of Treatment DateTypeDepartmentCare Team (Latest Contact Info)Oqbpyfxdfck82/12/2025 3:00 PM ESTRoutine [facility] [address] [place] [phone] Jose Barreto, [address] [address] documented as of this encounter Procedures Procedure NamePriorityDate/TimeAssociated DiagnosisCommentsPOCT URINALYSIS SAMVJQSWTblfkgz54/07/2025 2:37 PM EDT Third trimester ([facility]) documented in this encounter Results * US OB follow up transabdominal approach (12/04/2024 1:52 PM EDT)Anatomical RegionLateralityModalityBodyUltrasoundSpecimen (Source)Anatomical Location / LateralityCollection Method / VolumeCollection TimeReceived Time12/04/2024 3:53 PM EDT Impressions 12/05/2024 7:08 AM EDT Single, live intrauterine , current sonographic age of 32 weeks and 0 days, with an estimated date of delivery of January 29, 2025 (prior BRO January 28, 2025). TRANSCRIBED BY: ? ELECTRONICALLY SIGNED BY: Gerardo Cosme MD Narrative 12/05/2024 7:08 AM EDT FINDINGS: Comparison September 13, 2024. A single, live intrauterine is present with normal cardiac rate of 143 beats per minute. Normal activity and amniotic fluid volume. Amniotic fluid index is 13 cm. ??Morphology is grossly normal. The placenta is anterior, not associated with the cervical os. ??The current sonographic age is 32 weeks and 0 days, based on the following measurements: ?BPD ? 7.3 cm (29 weeks, 2 days) ?Head Circumference ?29.2 cm (32 weeks, 1 day) ?Abdominal Circumference ?29.4 cm (33 weeks, 3 days) ?Femur Length ?6.4 cm (33 weeks, 1 day) ?Presentation ? Breech ?Placenta ?Anterior ? Weight (g) by Percentile ??46.5 % * (prior 42.7%) These measurements result in an estimated date of delivery of January 29, 2025. ?? The current estimated weight is 2049 grams (4 pounds, 8 ounces). ?? Procedure Note Gerardo Cosme MD - 12/05/2024 FINDINGS: Comparison September 13, 2024. A single, live intrauterine is present with normal cardiacrate of 143 beats per minute. Normal activity and amniotic fluidvolume. Amniotic fluid index is 13 cm. Morphology is grossly normal. Theplacenta is anterior, not associated with the cervical os. The currentsonographic age is 32 weeks and 0 days, based on the followingmeasurements: BPD 7.3 cm (29 weeks, 2 days) Head Circumference 29.2 cm (32 weeks, 1 day) Abdominal Circumference 29.4 cm (33 weeks, 3 days) Femur Length 6.4 cm (33 weeks, 1 day) Presentation Breech PlacentaAnterior Weight (g) by Percentile 46.5 % * (prior 42.7%) These measurements result in an estimated date of delivery of January. The current estimated weight is 2049 grams (4 pounds, 8ounces). IMPRESSION: Single, live intrauterine , current sonographic age of 32 weeksand 0 days, with an estimated date of delivery of January 29, 2025 (priorEDD January 28, 2025). TRANSCRIBED BY: ELECTRONICALLY SIGNED BY: Gerardo Cosme MD Authorizing ProviderResult TypeResult StatusKrVirtua [facility]ton NPIMG OB US PROCEDURESFinal Result * (ABNORMAL) POCT urinalysis dipstick manually resulted (11/20/2024 2:37 PM EDT) ComponentValueRef RangeTest MethodAnalysis TimePerformed AtPathologist SignatureColor, UAYellowClarity, UAClearGlucose, UANegativeNegative - 2000(110) ++++ mg/dLBilirubin, UANegativeNegative - 4(70) +++ mg/dLKetones, UA PositiveNegative - 160(16) ++++ mg/dLComment:1+Spec Grav, UA1.0301 - 1.03 Blood, UAPositiveNegative - 50 Guy/mcLComment:TracepH, UA6.05 - 9Protein, UA PositiveNegative - 2000(20) ++++ mg/dLComment:TraceUrobilinogen, UA0.20.2 - 12 mg/dLLeukocytes, UANegativeNegative - 500+++ Corona/mcLNitrite, UANegative Negative - PositiveSpecimen (Source)Anatomical Location / LateralityCollection Method / VolumeCollection TimeReceived NxkaOimdi46/07/2025 2:37 PM EDT Narrative Authorizing ProviderResult TypeResult StatusPatricia Kelly NPPOINT OF CARE TEST ENTER/EDIT ORDERABLESFinal Result documented in this encounter Visit Diagnoses Diagnosis size inconsistent with dates ([facility])- Primary Third trimester ([facility]) state, incidental 30 weeks gestation of ([facility]) size inconsistent with dates ([facility]) documented in this encounter
--- OUTSIDE RECORDS SUMMARY | 2024-12-17 13:50 | XMS_ITS | Encounter Summary ---
Author Organization [facility] Address [address] [facility] [place] [address] Care Team Providers Care Waste Management Engineer Name Role Phone Unavailable Primary Care Provider Unavailabl e Reason for Visit * ReasonCommentsRoutine Visit Encounter Details DateTypeDepartmentCare Team (Latest Contact Info)Vkxdkbemvjq31/03/2025 1:50 PM ESTRoutine NOMSumaya Ancelmo OBGYN [address] [place] [address] Cindy Silva PA [address] [place], [facility]11 Third trimester ([facility]); 34 weeks gestation of ([facility]) Social History Tobacco UseTypesPacks/DayYears UsedDateSmoking Tobacco: Never Assessed Estimated Date of LyexdafyVoypttqlGef82/12/2025Based on UltrasoundSex and Gender InformationValueDate RecordedSex Assigned at BirthNot on fileLegal SexFemale 04/28/2022 6:54 PM EDTGender IdentityNot on fileSexual OrientationNot on file documented as of this encounter Last Filed Vital Signs Vital SignReadingTime TakenCommentsBlood Ouadmint516/6012/17/2024 2:04 PM EST Pulse--Temperature--Respiratory Rate--Oxygen Saturation--Inhaled Oxygen Concentration--Ssalub79.4 kg (197 lb)12/17/2024 2:04 PM ESTHeight--Body Mass [...] was 05/08/2024. Assessment/Plan ICD-10-CM 1. Third trimester ([facility]) Z34.93 2. 34 weeks gestation of ([facility]) Z3A.34 Return OB: Patient presents today [...] Plan of Treatment DateTypeDepartmentCare Team (Latest Contact Info)Zdktcjukspg19/12/2025 3:00 PM ESTRoutine [facility] Ancelmo [facility] [address] [place] [address] Jose Barreto DO [address] [place] [address] documented as of this encounter Procedures Procedure NamePriorityDate/TimeAssociated DiagnosisCommentsPOCT URINALYSIS CPEVJPXHPphhxek97/03/2025 2:04 PM EST Third trimester ([facility]) documented in this encounter Results * (ABNORMAL) POCT urinalysis dipstick manually resulted (12/17/2024 2:04 PM EST) ComponentValueRef RangeTest MethodAnalysis TimePerformed AtPathologist SignatureColor, UAYellowClarity, UACloudyGlucose, UANegativeNegative - 2000(110) ++++ mg/dLBilirubin, UANegativeNegative - 4(70) +++ mg/dLKetones, UA NegativeNegative - 160(16) ++++ mg/dLSpec Grav, UA1.0251 - 1.03Blood, UA NegativeNegative - 50 Guy/mcLpH, UA8.05 - 9Protein, UA1+Negative - 2000(20) ++++ mg/dLUrobilinogen, UA1.00.2 - 12 mg/dLLeukocytes, UANegativeNegative - 500+++ Corona/mcLNitrite, UANegativeNegative - PositiveSpecimen (Source) Anatomical Location / LateralityCollection Method / VolumeCollection Time Received VmavUboay02/03/2025 2:04 PM EST Narrative Authorizing ProviderResult TypeResult StatusJohn [facility] TEST ENTER/EDIT ORDERABLESFinal Result documented in this encounter Visit Diagnoses Diagnosis Third trimester ([facility]) state, incidental 34 weeks gestation of ([facility]) documented in this encounter
--- OUTSIDE RECORDS SUMMARY | 2024-12-20 07:38 | XMS_ITS | Clinical Summary ---
Author Organization [facility] Address [address] [place] [address] Care Team Providers Care Assistant Project Manager Name Role Phone Unavailable Primary Care Provider Unavailabl e Allergies Active AllergyReactionsCriticalityNoted DateCommentsPenicillin G008/29/2024 Other Reaction(s): Unknown ZtbbhmbhecxHdksNay03/26/2024 Other Reaction(s): Unknown Sulfa UetrmlzwlutThspw04/26/2024 Other Reaction(s): Unknown Medications MedicationSigDispense QuantityRefillsLast FilledStart [...] capsule Take 1 capsule by mouth Daily5Active Encounters DateTypeDepartmentCare NknhVoxwjexcbqh29/03/2025 1:50 PM ESTRoutine [facility] Ancelmo [facility] [address] [place] [address] [place] [phone] Cindy Silva PA Third trimester ([facility]); 34 weeks gestation of ([facility])5Bamboo flowsheet [facility] An[facility]mo [facility] [address] [place] [address] Cindy Silva PA 12/17/20243706Aepgdi32/21/2025 2:10 PM EDTRoutine [facility]S Ancelmo [facility] [address] [place] [address] Jose Barreto DO 32 weeks gestation of ([facility]); Third trimester ([facility]); Anemia, unspecified type12/04/2024 1:30 PM EDTAncillary Procedure [facility] Ancelmo [facility] [address] [place] [phone] size inconsistent with dates ([facility])12/03/20241165Egqtme25/07/2025 2:30 PM EDTRoutine NOMS Potrero OBG[facility] [address] [place] [address] Patricia Kelly, YOLA size inconsistent with dates ([facility]) (Primary Dx); Third trimester ([facility]); 30 weeks gestation of ([facility])11/20/2024amboo flowsheet [facility] Ancelmo [facility] [address] [place] [address] Patricia Kelly NP 11/20/20243597Rraidi40/22/2025 10:00 AM EDTRoutine N[facility]S Ancelmo [facility] [address] [place] [address] Jose Barreto DO Anemia, unspecified type (Primary Dx); Third trimester ([facility]); 28 weeks gestation of ([facility])11/05/2024linisync Result Encounter NOMS External Department Unsolicited Patricia Kelly NP 11/05/2024amb flowsheet [facility] An[facility]mo [facility] [address] [place] [address] Jose Barreto DO 11/05/20248915Iiswhr56/10/2025 3:00 PM EDTRoutine NOMS Ancelmo [place] [address] Cindy Silva PA 26 weeks gestation of ([facility]); Second trimester ([facility]); Anemia during in second trimester ([facility])10/24/2024amboo flowsheet NOMS Ancelmo Castellon [address] [place] [address] Cindy Silva PA 10/24/20249634Gyblwh81/26/2025Telephone NOMS Ancelmo Castellon [address] [place] [address] Jose Barreto, 10/08/2024linisync Result Encounter NOMS External Department Unsolicited Jose Barreto, 09/26/2024 2:50 PM EDTRoutine NOMS Ancelmo Castell[address] [place] [address] Jose Barreto, DO Diabetes mellitus screening; Second trimester ([facility]); 22 weeks gestation of ([facility])09/26/2024amboo flowsheet NOMS Ancelmo CASTAÑEDA [address] [place] [address] Jose Barreto, 09/26/2024Travelfrom Last 3 Months Family History Medical HistoryRelationNameCommentsCerebrovascular accidentMaternal Grandfather RelationNameStatusCommentsMaternal Grandfather Social History Tobacco UseTypesPacks/DayYears UsedDateSmoking Tobacco: Never Assessed Estimated Date of OmwxsuuvNmkenkhoKyv29/12/2025ased on UltrasoundSex and Gender InformationValueDate RecordedSex Assigned at BirthNot on fileLegal SexFemale 04/28/2022 6:54 PM EDTGender IdentityNot on fileSexual OrientationNot on file Last Filed Vital Signs Vital SignReadingTime TakenCommentsBlood Oztetcqk782/6011/04/2024 2:04 PM EST Pulse--Temperature--Respiratory Rate--Oxygen Saturation--Inhaled Oxygen Concentration--Wlxcbz96.4 kg (197 lb)12/17/2024 2:04 PM IUCBkiolr013.7 cm (5' 8 )07/14/2023 11:01 AM EDTBody Mass Index29.95007/14/2023 11:01 AM EDT Plan of Treatment DateTypeDepartmentCare Team (Latest Contact Info)Lzxbsrgzehk60/12/2025 3:00 PM ESTRoutine [facility] Ancelmo [facility] [address] [place] [address] Mary LouJose humphries, [address] [place] [address] Health MaintenanceDue DateLast DoneCommentsHPV/Enjrsc2909/21/2020OVID-19 Vaccine (2024- season)/, 04/09/2020Influenza Vaccine (#1) Cervical Cancer Dduwaekck87/16/2028Pap Smear08/30/2027 08/29/2024, 07/13/2023, 3Pneumococcal Vaccine: Pediatrics (0 to 5 Years) and At-Risk Patients (6 to 64 Years)Aged OutNo longer eligible based on patient's age to complete this topic Procedures Procedure NamePriorityDate/TimeAssociated DiagnosisCommentsPOCT URINALYSIS NAWWNDBSMabnuim22/03/2025 2:04 PM EST Third trimester ([facility]) POCT URINALYSIS ICSVOJBSOzktcab72/21/2025 2:09 PM EDT 32 weeks gestation of ([facility]) Third trimester ([facility]) OB FOLLOW UP TRANSABDOMINAL ANKGSUQVDcicqhx66/21/2025 1:52 PM EDT size inconsistent with dates ([facility]) POCT URINALYSIS NGPHLNLNSbawwja83/07/2025 2:37 PM EDT Third trimester ([facility]) ALL CBC WITH AUTO FIQIFxjyrzu00/22/2025 11:16 AM EDT POCT URINALYSIS UELJKHCHSedknpe44/22/2025 10:14 AM EDT Third trimester ([facility]) POCT URINALYSIS FRVUZKFRSqqrrax62/10/2025 3:11 PM EDT 26 weeks gestation of ([facility]) Second trimester ([facility]) GLUCOSE 1 PGHHAjjlqmt89/25/2025 2:13 PM EDT ALL CBC WITH AUTO UYXXAzlncfw79/25/2025 2:13 PM EDT POCT URINALYSIS SWCEWERYYidwjpl96/13/2025 3:04 PM EDT Second trimester ([facility]) PAP HNIZBNdmsbhk14/16/2025 12:00 AM EDTfrom Last 3 Months or Most Recently Relevant to Health Maintenance Results * (ABNORMAL) POCT urinalysis dipstick manually resulted (12/17/2024 2:04 PM EST) Only the most recent of6 resultswithin the time period is included. ComponentValueRef RangeTest MethodAnalysis TimePerformed AtPathologist Signature Color, UAYellowClarity, UACloudyGlucose, UANegativeNegative - 1999(110) ++++ mg/dLBilirubin, UANegativeNegative - 4(70) +++ mg/dLKetones, UANegativeNegative - 160(16) ++++ mg/dLSpec Grav, UA1.0251 - 1.03Blood, UANegativeNegative - 50 Guy/mcLpH, UA8.05 - 9Protein, UA1+Negative - 2000(20) ++++ mg/dLUrobilinogen, UA 1.00.2 - 12 mg/dLLeukocytes, UANegativeNegative - 500+++ Corona/mcLNitrite, UA NegativeNegative - PositiveSpecimen (Source)Anatomical Location / Laterality Collection Method / VolumeCollection TimeReceived YlsdCayas90/03/2025 2:04 PM EST Narrative Authorizing ProviderResult TypeResult StatusCindy Silva [facility]ARE TEST ENTER/EDIT ORDERABLESFinal Result * [...] Gerardo Cosme MD Authorizing ProviderResult TypeResult StatusKrbulmaro Robin NPIMG OB US PROCEDURESFinal Result * (ABNORMAL) ALL CBC [...] - 35.2 g/dLTBHTBH RDW12.711.0 - 15.0 %TBHTBH WGQ171205 - 450 10 3/uLTBHTBH MPV9.59.5 - 13.5 [...] Kelly NPCLINISYNCFinal ResultPerforming OrganizationAddressCity/State/ZIP CodePhone Number [facility] * GLUCOSE 1 HOUR (10/08/2024 2:13 PM EDT)ComponentValueRef RangeTest Method Analysis TimePerformed AtPathologist SignatureGLUCOSE 1 ZPHL986<130 mg/dLTBH Specimen (Source)Anatomical Location / LateralityCollection Method / Volume Collection TimeReceived Time10/08/2024 2:13 PM EDT10/08/2024 2:25 PM EDT Narrative CL[facility]NC - 10/08/2024 2:52 PM EDT Authorizing ProviderResult TypeResult StatusCorey Mary Lou DOLAB BLOOD ORDERABLES Final ResultPerforming OrganizationAddressCity/State/ZIP CodePhone Number CLINIS[facility]NC [facility] * Pap Smear (08/29/2024 12:00 AM EDT)Specimen (Source)Anatomical Location / LateralityCollection Method / VolumeCollection TimeReceived TimeSwabCervical swab / Unknown Narrative Authorizing ProviderResult TypeResult StatusFazio Nurse Noms Bcp ObLAB CYTOLOGY ORDERABLESFinal ResultPerforming OrganizationAddressCity/State/ZIP CodePhone Number EXTERNAL LAB from Last 3 Months or Most Recently Relevant to Health Maintenance Insurance
--- OUTSIDE RECORDS SUMMARY | 2024-12-20 07:38 | XMS_ITS | Encounter Summary ---
Author Organization [facility] Address [address] [facility] [place] [address] Care Team Providers Care Flare Breaker Name Role Phone Unavailable Primary Care Provider Unavailabl e Encounter Details DateTypeDepartmentCare Team (Latest Contact Info)Hlasgcqjxsw14/03/2025Travel Social History Tobacco UseTypesPacks/DayYears UsedDateSmoking Tobacco: Never Assessed Estimated Date of GlutnpdfPwrmtcdiIsj00/12/2025Based on UltrasoundSex and Gender InformationValueDate RecordedSex Assigned at BirthNot on fileLegal SexFemale 04/28/2022 6:54 PM EDTGender IdentityNot on fileSexual OrientationNot on file documented as of this encounter Plan of Treatment DateTypeDepartmentCare Team (Latest Contact Info)Vowdlsxtrhx70/12/2025 3:00 PM ESTRoutine NOMSumaya Ag OBGYN [address] [place] [address] Jose Barreto DO [address] [place], [facility]11 documented as of this encounter Visit Diagnoses Not on filedocumented in this encounter
--- OUTSIDE RECORDS SUMMARY | 2024-12-20 07:38 | XMS_ITS | Patient Health Record ---
Author Organization [facility] vices Address [address] [place], [place] [address] Care Team Providers Care Crucible Furnace Tender Name Role Phone AsuncionJeremiasJimy Alma Unavailable [phone] Mya Marte Unavailable [phone] Allergies Allergen (clinical drug ingredient) Drug/Non Drug [...] W/U Status Risk Notes Problem Tobacco user ([id number]) Cigaret te nicotine dependence without complication (F17.210) ActiveconfirmedProblemBody mass index 25-29 - overweight (479850383)BMI 25.0- 25.9,adult (Z68.25)Activeconfirmed Vital Signs Heart Rate 62 /min 02/06/2024 Height-cm172.72 cm02/06/2024lood pressure iwgzrxeyd56 mm Hg02/06/2024Weight-kg 74.84 kg02/06/20243316Utrnvj34 in02/06/2024lood pressure aqrjviay652 mm Hg 02/06/20241178Wsswpk783 lbs104/08/2023BMI25.09 kg/m202/06/2024 Encounters Encounter Location Date Provider Diagnosis [facility] Main [address] [place], [place] [phone] 02/06/2024 Mya Marte Encounter for scre ening [...] Start Date Coverage End Date Jennifer Peng [facility] [address] [place] [id number] Gibson Mckeon - patient is the vevqmax97/01/2023DMedicaid CFC after [place] [place], [place] [id number], TaraSelf - patient is the dnxmwzx78 2022
--- OUTSIDE RECORDS SUMMARY | 2024-12-20 07:38 | XMS_ITS | Encounter Summary ---
Author Organization [facility] Address [address] [place] [address] Care Team Providers Care Tax Assistant Name Role Phone Unavailable Primary Care Provider Unavailabl e Encounter Details DateTypeDepartmentCare Team (Latest Contact Info)Fieoqwpoiua52/03/2025Bamboo flowsheet MOI CASTAÑEDA [address] [place] [address] Cindy Silva PA [address] [place], [facility] Social History Tobacco UseTypesPacks/DayYears UsedDateSmoking Tobacco: Never Assessed Estimated Date of QehyycnaHwfaybdbKvv36/12/2025Based on UltrasoundSex and Gender InformationValueDate RecordedSex Assigned at BirthNot on fileLegal SexFemale 04/28/2022 6:54 PM EDTGender IdentityNot on fileSexual OrientationNot on file documented as of this encounter Plan of Treatment DateTypeDepartmentCare Team (Latest Contact Info)Hxnunhrqjfv81/12/2025 3:00 PM ESTRoutine MOI CASTAÑEDA [address] [address] Jose Barreto DO [address] Magdi Ag, [facility]11 documented as of this encounter Visit Diagnoses Not on filedocumented in this encounter
--- OUTSIDE RECORDS SUMMARY | 2024-12-20 07:38 | XMS_ITS ---
Author Organization [facility] (ClinicalSummary Clone) Address Unknown Care Team Providers Care Tour Manager Name Role Phone Unavailable Primary Care Physician Unavailab le Results * [UNITY] ANEUPLOIDY NIPT Performed by: [employer] Component Value Range Date Fraction 9.8% 07/30/2024 02:20 am UTCRh(D) NIPTRhD RUGTCHTX52/16/2025 02:20 am UTCSex Chromosome AneuploidyNOT EKPZKJBV74/16/2025 02:20 am UTCMonosomy XLOW RISK <1 in , 02:20 am UTCTrisomy 13LOW RISK <1 in , 02:20 am UTCTrisomy 18LOW RISK <1 in , 02:20 am UTCTrisomy 21LOW RISK <1 in , 02:20 am UTCFetal XbbPLTHED24/16/2025 02:20 am UTCPregnancy UdkxscpgaHNJKFBMAR79/16/2025 02:20 am UTCFor detailed report, see PDFSee PDF 07/30/2024 02:20 am UTC07/30/2024 02:20 am UTC Social History Observation Value Start Date End Date
--- OUTSIDE RECORDS SUMMARY | 2024-12-20 07:38 | XMS_ITS ---
Author Organization [facility] (ClinicalSummary Clone) Address Unknown Care Team Providers Care Market Developer Name Role Phone Unavailable Primary Care Physician Unavailab le Results * [UNITY] CARRIER SCREEN Performed by: [employer] Component Value Range Date Sickle Cell Disease/Beta-Thalassemia/Hemoglobino pathies carrier screen NEGATIVE 08/02/2024 04:17 am UTCAlpha-Thalassemia carrier exnjgcRXVCEGSU92/19/2025 04:17 am UTCCystic Fibrosis carrier bpejpaJICOUNJV14/19/2025 04:17 am UTCSpinal Muscular Atrophy carrier screenNEGATIVE 2 SMN1 copies, SNP not vtgtqwx1508/02/2024 04:17 am UTCFor detailed report, see PDFSee PDF08/02/2024 04:17 am UTC 08/02/2024 04:17 am UT Social History Observation Value Start Date End Date
--- OUTSIDE RECORDS SUMMARY | 2024-12-20 07:38 | XMS_ITS | Clinical Summary ---
Author Organization [facility] Address [address] [place] [address] Phone Care Team Providers Care Manager Of Environmental Services Name Role Phone Unavailable Primary Care Provider Unavailabl e Social History Tobacco UseTypesPacks/DayYears UsedDateSmoking Tobacco: Never Assessed CommentsUnknownSex and Gender InformationValueDate RecordedSex Assigned at Not on fileLegal MftFuivwq53/26/2022 11:36 AM ESTGender IdentityNot on file Sexual OrientationNot on file Plan of Treatment Not on file
--- OUTSIDE RECORDS SUMMARY | 2024-12-20 07:39 | XMS_ITS | CCD ---
Author Organization [facility] CliniSyhi Care Team Providers [employer] Education Director Name Role Phone Gosia Garcias Primary [...] PATRICIA Consulting Unavailable ROBIN, PATRICIA Attending Unavailable ROSY, JENN Primary Care Unavailable ROBIN, PATRICIA Admitting Unavailable MARY LOU, DR INFANTE Attending Unavailable MARY LOU, DR INFANTE Admitting Unavailable MARY LOU, DR INFANTE Consulting Unavailable ROSY, JENN Primary Care Unavailable ZIEBER, DR FRANCIA Hyde Consulting Unavailable MARY LOU, DR INFANTE Attending Unavailable MARY LOU, DR INFANTE Admitting Unavailable MIS, DR ASKEW Primary Care Unavailable MARY LOU, DR INFANTE Consulting Unavailable ROSY, JENN Primary Care Unavailable MARY LOU, DR INFANTE Attending Unavailable MARY LOU, DR INFANTE Admitting Unavailable [place], DR KASEY Horvath Consulting Unavailable MARY LOU, DR INFANTE Consulting Unavailable MARY LOU, DR INFANTE Attending Unavailable MARY LOU, DR INFANTE Admitting Unavailable MARY LOU, DR INFANTE Consulting Unavailable ROSY JENN Primary Care Unavailable ZIEBER, DR FRANCIA Hyde Consulting Unavailable Mike Estrada Unavailable Unavailable Primary Care Provider Unavailabl e MARY LOU, ARELIS Attending Unavailable CINDY THOMAS Attending Unavailable CINDY THOMAS Referring Unavailable MARY LOU, ARELIS Attending Unavailable WILLIAM CINDY Attending Unavailable MARY LOU, ARELIS Attending Unavailable ROBIN, PATRICIA Attending Unavailable ROBIN, PATRICIA Referring Unavailable MARY LOU, ARELIS Attending Unavailable CINDY THOMAS Attending Unavailable Allergies Allergy ClassificationReported Allergen(s)Allergy TypeDate of OnsetReaction(s) Facility (5 sources)Sulfacetamide / SulfurDrug AllergyAdventHealth for Children Mobivery Other (1 source)PenicillinsDrug allergy (disorder)46-36-2946WhyOhio[facility] (1 source)Sulfonamides (Antibiotic)Drug allergy (disorder)86-42-5604EimOhiohealth [facility]heastern [facility] Repository (20 sources)PenicillinsDrug Mkgznfjlupi04-32-9143NwslATZH Healthcare (20 sources)Sulfonamides (Antibiotic)Drug Lvueqxohxfz87-01-4989KipraJPYA Healthcare (20 sources)Penicillin GDrug Ptdrrvk42-47-5483VIAF Healthcare Medications Current Medications MedicationDrug Class(es)DatesSig (Normalized)Sig (Original)[id number] 200 actuat albuterol 0.09 mg/actuat metered dose [...] Activepolysaccharide iron complex 391 mg oral capsule (12 sources)Start: 10-09-2024 End: 31-44-6447zfgv 1 capsule by mouth once dailyProFe 391.3 (180 Fe) MG capsule Take 1 capsule by mouth Daily 11/06/2024 Active Completed/Discontinued Medications MedicationDrug Class(es)DatesSig (Normalized)Sig (Original)Albuterol [...] propionate 0.0005 mg/mg topical ointment (4 sources)CorticosteroidStart: 48-20-5908Vcxkzzbrcm Propionate 0.05 % 1 application Externally Twice a day for 10 day(s) PRN Feb, Not-Taking FLUoxetine 20 mg oral tablet (4 sources)Serotonin Reuptake Inhibitortake 1 tablet by mouth every twenty-four hoursFLUoxetine HCl 20 MG 1 tablet Orally Once a day for 90 day(s) Not-Taking naproxen 500 mg oral tablet (2 sources)Nonsteroidal Anti-inflammatory DrugStart: 16-36-8009onlg 1 tablet by mouth every twelve hours at mealtime as neededNaproxen 500 MG 1 tablet with food or milk as needed Orally every 12 hrs for 20 days Apr, Not-Taking/PRN Problems Active Problems Problem ClassificationProblemDateDocumented DateEpisodic/ChronicAnxiety disorders (10 sources)Mixed anxiety and depressive disorder; Translations: [Other specified anxiety disorders]Onset: 02-11-2021 Resolved: 73-35-3201VudqqfvNthdwy (9 sources)Uncomplicated moderate persistent asthma; Translations: [Moderate persistent asthma, uncomplicated]Onset: 02-11-2021 Resolved: 14-10-6910EgefurjKvwkcvgavw and other anemia (4 sources)Anemia; Translations: [Anemia, unspecified]10-61-3522PgkwzjosTanwuewy mellitus without complication (1 source)Diabetes mellitus without complication; Translations: [Z13.1 - Encounter for screening for diabetesmellitus]Onset: 39-26-9888Zwmjrzsa; including migraine (5 sources)Chronic tension-type headache; Translations: [Chronic tension-type headache, not intractable]ChronicImmunizations and screening for infectious disease (8 sources)Encounter for screening for human papillomavirus (HPV); Translations: [Encounter for screening for infections with a predominantly sexual mode of transmission]Onset: 49-07-4467GgwsncniGpdrnhcps disorders (4 sources)Irregular menstruation, unspecified; Translations: [IRREGULAR MENSTRUATION UNSPECIFIED]Onset: 04-16-1168XcqohgvKozis complications of ; puerperium affecting management of mother (1 source)Anemia complicating childbirth; Translations: [ANEMIA COMPLICATING CHILDBIRTH]Onset: 54-74-7908BfnnowhMeibh complications of ; puerperium affecting management of mother (1 source)Obesity complicating childbirth; Translations: [OBESITY COMPLICATING CHILDBIRTH]Onset: 09-00-2843OfrwwvoFnjsg complications of (2 sources)Anemia of ; Translations: [Anemia complicating , second trimester]04-99-3593TrzegdgBeolz complications of (2 sources) size does not accord with dates; Translations: [Uterine size- date discrepancy, unspecified trimester]81-29-8463FftbwbomBhudr connective tissue disease (1 source)Other enthesopathies, not elsewhere classifiedEpisodicOther nutritional; endocrine; and metabolic disorders (1 source)Obesity, unspecified; Translations: [OBESITY UNSPECIFIED]Onset: 23-03-3650FbjbnrrSigbm and delivery including normal (18 sources)Single live ; Translations: [Encounter for supervision of normal , unspecified, firsttrimester]Onset: [id number] EpisodicOther screening for suspected conditions (not mental disorders or infectious disease) (19 sources)Encounter for screening for malignant neoplasm of cervix; Translations: [Encounter for screening for Streptococcus B]Onset: 64-23-4082GcvhomdePcnji upper respiratory infections (4 sources)Acute frontal sinusitis; Translations: [Acute frontal sinusitis, unspecified]EpisodicResidual codes; unclassified (2 sources)Gestation period, 14 weeks; Translations: [14 weeks gestation of ]99-46-8688KrceoqbtVrstfvxb codes; unclassified (2 sources)Gestation period, 18 weeks; Translations: [18 weeks gestation of ]96-28-7611UvuflejdEeaylxmo codes; unclassified (2 sources)Gestation period, 22 weeks; Translations: [22 weeks gestation of ]28-72-0314YyfiorqgMidutpry codes; unclassified (2 sources)Gestation period, 26 weeks; Translations: [26 weeks gestation of ]68-41-4231MtqlattdVglngepp codes; unclassified (2 sources)Gestation period, 28 weeks; Translations: [28 weeks gestation of ]24-13-2009RenzcamxQkifwozh codes; unclassified (2 sources)Gestation period, 30 weeks; Translations: [30 weeks gestation of ]11-85-2602ImqayaokUoxbzqbe codes; unclassified (2 sources)Gestation period, 32 weeks; Translations: [32 weeks gestation of ]36-44-9133KaypjsmsAudasqhc codes; unclassified (2 sources)Gestation period, 34 weeks; Translations: [34 weeks gestation of ]23-72-2759MzmedtxlYovuymzegdnk (1 source)CONTACT W/AND (SUSP) EXPOS COVID-19; Translations: [CONTACT W/AND (SUSP) EXPOS COVID-19]Onset: 11-02-2021 Past or Other Problems Problem ClassificationProblemDateDocumented DateEpisodic/ChronicDeficiency and other anemia (1 source)Iron deficiency anemia, unspecified; Translations: [IRON DEFICIENCY ANEMIA UNSPECIFIED]Onset: 33-23-1218YfphnfwpT Codes: Cut/pierceb (1 source)Contact with other sharp object(s), not elsewhere classified, initial encounter; Translations: [[facility] SHRP OB NOT ELSW CLASS INI]Onset: 06-01-2021 EpisodicHemorrhage during ; abruptio placenta; placenta previa (8 sources)Low lying placenta NOS or without hemorrhage, unspecified trimester; Translations: [Complete placenta previa NOS or without hemorrhage, unspecified trimester]Onset: 10-32-7704HmazmgvlFivgl aftercare (1 source)Other halfway (current) drug therapy; Translations: [[facility]ER CURRENT DRUG THERAPY]Onset: 49-93-4526TyygspxtDpfko complications of ; puerperium affecting management of mother (1 source)Diseases of the respiratory system complicating childbirth; Translations: [DISEASES RESP SYS COMP CHILDBIRTH]Onset: 36-02-3846JgjcjhotCnhih female genital disorders (4 sources)Other specified noninflammatory disorders of vagina; Translations: [OTH SPEC NONINFLAMMATORY D/O VAGINA]Onset: 53-33-9859HgrxhfogUljxcqmn (3 sources)Maternal care for unspecified type scar from previous delivery; Translations: [MAT CARE UNS TYPE SCAR PREV C-SECT]Onset: 11-03-2021 EpisodicResidual codes; unclassified (4 sources)Contact with and (suspected) exposure to potentially hazardous body fluids; Translations: [CONTACT AND EXPOS POTENTL HAZ BDY FLUID]Onset: 12-10-2021 EpisodicResidual codes; unclassified (1 source)39 weeks gestation of ; Translations: [39 WEEKS GESTATION OF ]Onset: 00-34-3338WqipjfbyJiloshai codes; unclassified (1 source)Less than 8 weeks gestation of ; Translations: [< 8 WEEKS GESTATION ]Onset: 24-85-2742LjjngsxgEgoxvllzq and history of mental health and substance abuse codes (1 source)Personal history of nicotine dependence; Translations: [PERSONAL HISTORY OF NICOTINE DEPEND]Onset: 71-35-7146JvswqzrdIviekqfmysa injury; contusion (4 sources)Abrasion of left hand, initial encounter; Translations: [ABRASION LEFT HAND INITIAL ENC]Onset: 43-66-5053Eqsginvy Results Test NameValueInterpretationReference RangeFacilityUrinalysis macro (dipstick) panel (U)on 52-50-5344Szlbmhcmz, UANegativeNegative - 4(70) +++ mg/dLNOMS HealthcareBlood, UANegativeNegative - 50 Guy/mcLNOMS HealthcareClarity, UACloudy NOMS HealthcareColor, UAYellowNOMS HealthcareGlucose, UANegativeNegative - 1999(110) ++++ mg/dLNOMS HealthcareInterpretation and review of laboratory resultsAbnormalNOMS HealthcareKetones, UANegativeNegative - 160(16) ++++ mg/dL NOMS HealthcareLeukocytes, UANegativeNegative - 500+++ Corona/mcLNOMS Healthcare Nitrite, UANegativeNegative - PositiveNOMS HealthcarepH, UA8.05 - 9NOMS HealthcareProtein, UA1+Negative - 1999(20) ++++ mg/dLNOMS HealthcareSpec Grav, UA1.0251 - 1.03NOMS HealthcareUrobilinogen, UA1.00.2 - 12 mg/dLNOWA Healthcare NOMS HealthcareUS OB FOLLOW UP TRANSABDOMINAL APPROACHon 06-84-5407MQ OB FOLLOW UP TRANSABDOMINAL APPROACHFINDINGS: Comparison September 13, 2024. A single, live intrauterine is present with normal cardiac rate of 143 beats per minute. Normal activity and amniotic fluid volume. Amniotic fluid index is 13 cm. Morphology is grossly normal. The placenta is anterior, not associated with the cervical os. The current sonographic age is 32 weeks and 0 days, based on the following measurements: BPD 7.3 cm (29 weeks, 2 days) Head Circumference 29.2 cm (32 weeks, 1 day) Abdominal Circumference 29.4 cm (33 weeks, 3 days) Femur Length 6.4 cm (33 weeks, 1 day) Presentation Breech Placenta Anterior Weight (g) by Percentile 46.5 % * (prior 42.7%) These measurements result in an estimated date of delivery of January 29, 2025. The current estimated weight is 2048 grams (4 pounds, 8 ounces). IMPRESSION: Single, live intrauterine , current sonographic age of 32 weeks and 0 days, with an estimated date of delivery of January 29, 2025 (prior BRO January 28, 2025). TRANSCRIBED BY: ELECTRONICALLY SIGNED BY: Kalen PandyaalNot AvailableComment on above:Order Comment: US OB SCAN FOR GROWTH Estimated Date of Delivery: 01/25/25 Gestational Age as of 11/20/2024: 38g9fNldcjfdrbp macro (dipstick) panel (U)on 59-05-9202Ladfokmxw, UANegativeNegative - 4(70) +++ mg/dLNOMS HealthcareBlood, UANegativeNegative - 50 Guy/mcLNOMS HealthcareClarity, UAClearNOMS Healthcare Color, UAAmberNOMS HealthcareGlucose, UANegativeNegative - 2000(110) ++++ mg/dL NOMS HealthcareInterpretation and review of laboratory resultsAbnormalNOMS HealthcareKetones, UANegativeNegative - 160(16) ++++ mg/dLNOMS Healthcare Leukocytes, UANegativeNegative - 500+++ Corona/mcLNOMS HealthcareNitrite, UA NegativeNegative - PositiveNOMS HealthcarepH, UA6.05 - 9NOMS HealthcareProtein, UAPositiveNegative - 2000(20) ++++ mg/dLNOMS HealthcareSpec Grav, UA1.0301 - 1.03NOMS HealthcareUrobilinogen, UA1.00.2 - 12 mg/dLNOMS HealthcareNOMS HealthcareUrinalysis macro (dipstick) panel (U)on 70-89-0087Kjirbjvgg, UA NegativeNegative - 4(70) +++ mg/dLNOMS HealthcareBlood, UAPositiveNegative - 50 Guy/mcLNOMS HealthcareComment on above:TraceClarity, UAClearNOMS Healthcare Color, UAYellowNOMS HealthcareGlucose, UANegativeNegative - 2000(110) ++++ mg/dL NOMS HealthcareInterpretation and review of laboratory resultsAbnormalNOMS HealthcareKetones, UAPositiveNegative - 160(16) ++++ mg/dLNOMS HealthcareComment on above:1+Leukocytes, UANegativeNegative - 500+++ Corona/mcLNOMS Healthcare Nitrite, UANegativeNegative - PositiveNOMS HealthcarepH, UA65 - 9NOMS Healthcare Protein, UAPositiveNegative - 2000(20) ++++ mg/dLNOMS HealthcareComment on above:TraceSpec Grav, UA1.031 - 1.03NOMS HealthcareUrobilinogen, UA0.20.2 - 12 mg/dLNOMS HealthcareNOMS HealthcareALL CBC WITH AUTO DIFFon 03-89-6330KRNWKQUFR ABSOLUTE OGUJ8HTOC HealthcareBasophils/100 WBC (Bld)0.3 %0.2 - 2.0 %NOMS HealthcareEosinophils/100 WBC (Bld)1.2 %0.9 - 7.0 %NOMS HealthcareErythrocyte distribution width (RBC) [Ratio]12.7 %11.0 - 15.0 %NOMS HealthcareHematocrit (Bld) [Volume fraction]32 %Low36.0 - 48.0 %NOMS HealthcareHemoglobin (Bld) [Mass/Vol]10.7 g/dLLow12.0 - 16.0 g/dLNOMS HealthcareIMMATURE GRANULOCYTES ABS AUTO0.24HighNOReynolds County General Memorial HospitalImmature granulocytes/100 WBC (Bld)1.9 %High0.0 - 0.5 %[facility]Po[facility] HospitalInterpretation and review of laboratory resultsAbnormalCenterPointe HospitalLYMPHOCYTES ABSOLUTE AUTO1.5NOReynolds County General Memorial HospitalLymphocytes/100 WBC (Bld) 12.3 %Low20.5 - 60.0 %[facility] (RBC) [Entitic mass]30.9 pg26.7 - 34.0 pgSaint Luke's North Hospital–Barry RoadHC (RBC) [Mass/Vol]33.4 g/dL29.9 - 35.2 g/dLCenterPointe Hospital MCV (RBC) [Entitic vol]92.5 fL81.0 - 99.0 fLCenterPointe HospitalMONOCYTES ABSOLUTE AUTO0.8NOReynolds County General Memorial HospitalMonocytes/100 WBC (Bld)6.2 %1.7 - 12.0 %[facility] NEUTROPHILS ABSOLUTE AUTO9.7HighCenterPointe HospitalNeutrophils/100 WBC (Bld)78.1 % High43.0 - 75.0 %[facility]Pointe HospitalPlatelet mean volume (Bld) [Entitic vol]9.5 fL 9.5 - 13.5 fLCenterPointe HospitalTB EO [address] HospitalTB NJO936QCEZReynolds County General Memorial Hospital TB RBC3.46LowGeneral Leonard Wood Army Community Hospital WBC12.4HighCenterPointe HospitalCLINISYNCNSaint Joseph Hospital of KirkwoodUrinalysis macro (dipstick) panel (U)on 92-54-5148Uwpslppdh, UA NegativeNegative - 4(70) +++ mg/dLJORDAN VALLEY [facility]ENTER HealthcareBlood, UANegativeNegative - 50 Guy/[facility] HealthcareClarity, UAClearNOWA HealthcareColor, UAYellowJORDAN VALLEY MEDICAL CENTER HealthcareGlucose, UANegativeNegative - 2000(110) ++++ mg/dLJORDAN VALLEY MEDICAL CENTER Healthcare Interpretation and review of laboratory resultsNormalJORDAN VALLEY MEDICAL [facility]ENTER HealthcareKetones, UA NegativeNegative - 160(16) ++++ mg/dLJORDAN VALLEY MEDICAL [facility]ENTER HealthcareLeukocytes, UANegative Negative - 500+++ Corona/[facility] HealthcareNitrite, UANegativeNegative - Positive [facility] HealthcarepH, UA6.55 - 9NOWA HealthcareProtein, UANegativeNegative - 2000(20) ++++ mg/dLNOMS HealthcareSpec Grav, UA1.0151 - 1.03NOWA Healthcare Urobilinogen, UA0.20.2 - 12 mg/dLNOReynolds County General Memorial HospitalNOWA HealthcareUrinalysis macro (dipstick) panel (U)on 48-72-6441Rylyibcik, UANegativeNegative - 4(70) +++ mg/dL NOMS HealthcareBlood, UANegativeNegative - 50 Guy/mcLNOWA HealthcareClarity, UA ClearNOMS HealthcareColor, UAYellowNOWA HealthcareGlucose, UANegativeNegative - 1999(110) ++++ mg/dLNOWA HealthcareInterpretation and review of laboratory resultsAbnormalCenterPointe HospitalKetones, UANegativeNegative - 160(16) ++++ mg/dL NOM HealthcareLeukocytes, UANegativeNegative - 500+++ Corona/mcLJORDAN VALLEY MEDICAL CENTER Healthcare Nitrite, UANegativeNegative - PositiveNOMS HealthcarepH, UA65 - 9NOWA Healthcare Protein, UAPositiveNegative - 1999(20) ++++ mg/dLNOWA HealthcareSpec Grav, UA 1.021 - 1.03NOWA HealthcareUrobilinogen, UA1.00.2 - 12 mg/dLNOReynolds County General Memorial HospitalNOWA HealthcareALL CBC WITH AUTO DIFFon 31-45-0344RVMYWWOAN ABSOLUTE EUXK0MBOO HealthcareBasophils/100 WBC (Bld)0.2 %0.2 - 2.0 %NOMS HealthcareEosinophils/100 WBC (Bld)1.9 %0.9 - 7.0 %NOMRipley County Memorial HospitalErythrocyte distribution width (RBC) [Ratio]12.6 %11.0 - 15.0 %NOMS HealthcareHematocrit (Bld) [Volume fraction]29.6 %Low36.0 - 48.0 %NOMRipley County Memorial HospitalHemoglobin (Bld) [Mass/Vol]9.9 g/dLLow12.0 - 16.0 g/dLNOReynolds County General Memorial HospitalIMMATURE GRANULOCYTES ABS AUTO0.09HighNOWA Healthcare Immature granulocytes/100 WBC (Bld)1 %High0.0 - 0.5 %NOMRipley County Memorial Hospital Interpretation and review of laboratory resultsAbnormReading Hospital LYMPHOCYTES ABSOLUTE AUTO1.3NOMS HealthcareLymphocytes/100 WBC (Bld)14 %Low20.5 - 60.0 %[facility] RoadH (RBC) [Entitic mass]31 pg26.7 - 34.0 pgNOCarondelet HealthHC (RBC) [Mass/Vol]33.4 g/dL29.9 - 35.2 g/dLNOCarondelet HealthV (RBC) [Entitic vol]92.8 fL81.0 - 99.0 fLNOWA HealthcareMONOCYTES ABSOLUTE AUTO0.6NOWA HealthcareMonocytes/100 WBC (Bld)6.3 %1.7 - 12.0 %NOM HealthcareNEUTROPHILS ABSOLUTE AUTO7.3HighNOWA HealthcareNeutrophils/100 WBC (Bld)76.6 %High43.0 - 75.0 %NOM HealthcarePlatelet mean volume (Bld) [Entitic vol]9.6 fL9.5 - 13.5 fL [facility] HospitalTB EO #0.2NOMS HealthcareTB AON110XOIGReynolds County General Memorial HospitalTB RBC3.19Low [facility]Pointe HospitalTB WBC9.5NOWA HealthcareCLINISYNCNALLIANCEHEALTH [facility]UR[facility] HealthcareUrinalysis macro (dipstick) panel (U)on 13-03-0945Qhtvlnafu, UANegativeNegative - 4(70) +++ mg/dL NOMS HealthcareBlood, UANegativeNegative - 50 Guy/mcLNOMS HealthcareClarity, UA ClearNOMS HealthcareColor, UAYellowNOMS HealthcareGlucose, UANegativeNegative - 2000(110) ++++ mg/dLNOMS HealthcareInterpretation and review of laboratory resultsNormalNOMS HealthcareKetones, UANegativeNegative - 160(16) ++++ mg/dLNOMS HealthcareLeukocytes, UANegativeNegative - 500+++ Corona/mcLNOMS HealthcareNitrite, UANegativeNegative - PositiveNOMS HealthcarepH, UA65 - 9NOMS HealthcareProtein, UANegativeNegative - 2000(20) ++++ mg/dLNOMS HealthcareSpec Grav, UA1.031 - 1.03 NOMS HealthcareUrobilinogen, UA1.00.2 - 12 mg/dLNOMS HealthcareNOMS HealthcareUS OB 14+ WEEKS ANATOMY SCANon 10-47-1579OA OB 14+ WEEKS ANATOMY SCANEXAM: US OB [...] II, MD, PHD at 14-Sep-2024 08:26:06 AM [facility] TeleradiologyNormalNot AvailableComment on above:Order Comment: US OB ANATOMY SINGLE W US OB CERVICAL LENGTH Estimated Date of Delivery: 01/25/25 Gestational Age as of 08/29/2024: 18x3cSIR,APTIMA HPV,AGE GDLNon 92-92-8909PML GDLN ACOG TESTINGNote.NOMS HealthcareComment on above:TESTS RESULT FLAG UNITS REF RANGE LAB Clinician Provided Cytology Information Source.............Endocervix No. of containers..01 ThinPrep Vial Age Algo ACOG Jenny... 30 FLAG LEGEND: L-Low Normal,H-High Normal,LL-Alert Low,HH-Alert High <-Panic Low,>-Panic High,A-Abnormal,AA-Critical Abnormal Performed at: 01 =[address] [address] Isabelle Quiros MD, HPV APTIMANegativeNegativeNOMS HealthcareComment on above:This nucleic acid amplification test detects fourteen high- risk HPV types (16,18,31,33,35,39,45,51,52,56,58,59,66,68) without differentiation. Performed at: =[address] [id number] Water Resources Engineer: Isabelle Quiros MD, Phone: [phone] Performed at: [address] [id number] Water Resources Engineer: Isabelle Quiros MD, Phone: [phone] IGP, APTIMA HPV, RFX 16/18,45Note.NOMS HealthcareComment on above:TESTS RESULT FLAG UNITS REF RANGE LAB DIAGNOSIS: 02 NEGATIVE FOR INTRAEPITHELIAL LESION OR MALIGNANCY. Specimen adequacy: 02 Satisfactory for evaluation. No endocervical component is identified. Performed by: 02 Mya Carrasquillo, Canoe Builder (ASCP) . 02 Note: Note 02 The [...] Low,>-Panic High,A-Abnormal,AA-Critical Abnormal Performed at: 02 [facility] [address] [place] [address] Isabelle Quiros MD, SPATULA-ALONE ENDOCERVIX CLINISYNCNOMS HealthcareRECURRENT VAGINITIS (HTRX)on 23-51-2283ASLSSRQXC VAGINAE 0NOMS HealthcareATOPOBIUM VAGINAENot detectedNOMS HealthcareBVAB 2,3 (BACTERIAL VAGINOSIS ASSOCIATED BACTERIA 2, 3); MOBILUNCUS SPP27.253AbnormalNOMS Healthcare BVAB 2,3 (BACTERIAL VAGINOSIS ASSOCIATED BACTERIA 2, 3); MOBILUNCUS SPPDetected AbnormalNOMS HealthcareCANDIDA ALBICANS, PARAPSILOSIS, [id number] HealthcareCANDIDA ALBICANS, PARAPSILOSIS, TROPICALISNot detectedNOMS Healthcare AKASH JEKSYCRN9VQEX HealthcareCANDIDA GLABRATANot detectedNOMS Healthcare AKASH VHIDTU2LTAQ HealthcareCANDIDA KRUSEINot detectedNOMS HealthcareCHLAMYDIA XMBRRQMXJVV0WGFK HealthcareCHLAMYDIA TRACHOMATISNot detectedNOMS Healthcare GARDNERELLA BWKMTRMOV49.264AbnormalNOMS HealthcareGARDNERELLA VAGINALISDetected AbnormalNOMS HealthcareInterpretation and review of laboratory resultsAbnormal NOMS HealthcareMEGASPHAERA (TYPES 1, 2)0NOMS HealthcareMEGASPHAERA (TYPES 1, 2) Not detectedNOMS HealthcareMYCOPLASMA GEXWNOFFWX4TDWN HealthcareMYCOPLASMA GENITALIUMNot detectedNOMS HealthcareNEISSERIA YOOCCDLEHWV7TEMU Healthcare NEISSERIA GONORRHOEAENot detectedNOMS HealthcareTET B, TET M27.391AbnormalNOMS HealthcareTET B, TET MDetectedAbnormalNOMS HealthcareTRICHOMONAS DFKSPQHJF2LMZZ HealthcareTRICHOMONAS VAGINALISNot detectedNOMS HealthcareNOMS Healthcare Urinalysis macro (dipstick) panel (U)on 02-77-4041Blaqgulwz, UANegativeNegative - 4(70) +++ mg/dLNOMS HealthcareBlood, UANegativeNegative - 50 Guy/mcLNOMS HealthcareClarity, UAClearNOMS HealthcareColor, UAYellowNOMS HealthcareGlucose, UANegativeNegative - 2000(110) ++++ mg/dLNOMS HealthcareInterpretation and review of laboratory resultsNormalNOMS HealthcareKetones, UANegativeNegative - 160(16) ++++ mg/dLNOMS HealthcareLeukocytes, UANegativeNegative - 500+++ Corona/mcL NOMS HealthcareNitrite, UANegativeNegative - PositiveNOMS HealthcarepH, UA75 - 9 NOMS HealthcareProtein, UANegativeNegative - 2000(20) ++++ mg/dLNOMS Healthcare Spec Grav, UA1.011 - 1.03NOMS HealthcareUrobilinogen, UA0.20.2 - 12 mg/dLNOWA HealthcareNOWA HealthcareUrinalysis macro (dipstick) panel (U)on 08-02-2024 Bilirubin, UANegativeNegative - 4(70) +++ mg/dLNOMS HealthcareBlood, UAPositive Negative - 50 Guy/mcLNOMS HealthcareComment on above:smallClarity, UAClearNOMS HealthcareColor, UAYellowNOMS HealthcareGlucose, UANegativeNegative - 2000(110) ++++ mg/dLNOWA HealthcareInterpretation and review of laboratory resultsAbnormal NOMS HealthcareKetones, UAPositiveNegative - 160(16) ++++ mg/dLNOWA Healthcare Comment on above:TraceLeukocytes, UANegativeNegative - 500+++ Corona/mcLNOWA HealthcareNitrite, UANegativeNegative - PositiveNOMS HealthcarepH, UA5.55 - 9 NOMS HealthcareProtein, UANegativeNegative - 2000(20) ++++ mg/dLNOWA Healthcare Spec Grav, UA1.031 - 1.03NOMS HealthcareUrobilinogen, UA0.20.2 - 12 mg/dLNOWA HealthcareNOMS HealthcareALL CBC WITH AUTO DIFFon 53-48-3251GMLGMMPEX ABSOLUTE NALH1JGXH HealthcareBasophils/100 WBC (Bld)0.4 %0.2 - 2.0 %[facility] Healthcare Eosinophils/100 WBC (Bld)2.4 %0.9 - 7.0 %NOMS HealthcareErythrocyte distribution width (RBC) [Ratio]12.4 %11.0 - 15.0 %NOMS HealthcareHematocrit (Bld) [Volume fraction]36.3 %36.0 - 48.0 %NOMS HealthcareHemoglobin (Bld) [Mass/Vol]12.6 g/dL 12.0 - 16.0 g/dLNOWA HealthcareIMMATURE GRANULOCYTES ABS AUTO0.02NOMS Healthcare Immature granulocytes/100 WBC (Bld)0.2 %0.0 - 0.5 %NOM HealthcareInterpretation and review of laboratory resultsAbnormalNOWA HealthcareLYMPHOCYTES ABSOLUTE AUTO1.9NOWA HealthcareLymphocytes/100 WBC (Bld)17.4 %Low20.5 - 60.0 %[facility] (RBC) [Entitic mass]31 pg26.7 - 34.0 pgSaint Luke's North Hospital–Barry RoadHC (RBC) [Mass/Vol]34.7 g/dL29.9 - 35.2 g/dLSaint Luke's North Hospital–Barry RoadV (RBC) [Entitic vol]89.4 fL 81.0 - 99.0 fLCenterPointe HospitalMONOCYTES ABSOLUTE AUTO0.7[facility] Healthcare Monocytes/100 WBC (Bld)6.7 %1.7 - 12.0 %[facility]Po[facility] HospitalNEUTROPHILS ABSOLUTE AUTO 7.8HighNOWA HealthcareNeutrophils/100 WBC (Bld)72.9 %43.0 - 75.0 %[facility]Pointe HospitalPlatelet mean volume (Bld) [Entitic vol]9.5 fL9.5 - 13.5 fLCenterPointe HospitalTBH EO #0.3NOReynolds County General Memorial HospitalTB URE734QHJWReynolds County General Memorial HospitalTB RBC4.06LowCenterPointe HospitalTB WBC10.7CenterPointe HospitalCLINISYNCNOMS HealthcareBOX TESTon [id number] TEST SENT OUTYESCenterPointe HospitalIzzgwovqogNTI5VPSUYDEQC DpgwsrvzpuKPG29/10/25 [facility] HospitalUNITY BOX CLINISYNCNOWA HealthcareUS OB TRANSVAGINALon [id number] OB TRANSVAGINALEXAM: US OB TRANSVAGINAL HISTORY: Dating. [...] II, MD, PHD at 06-Jul-2024 12:18:02 PM [facility] TeleradiologyNormalNot AvailableComment on above:Order Comment: US OB TRANSVAGINAL No LMP recorded.PAP ACOG PANEL 2: 30 to 65on 03-16-2022..NormalThe [facility] Medical CenterComment on above:Result Comment: Performed at: WBPerformed By: #### HIV12 #### [facility] [address] [place] [address] Dr. Nolvia Dugan Gdln ACOG Sulbcsg83-02KyirwiSxdCleveland Clinic FoundationComment on above:Performed By: #### HIV12 #### [facility] [address] [address] [address] Nolvia RuvalcabaDIAGNOSIS:CommentNoCleveland Clinic FoundationComment on above: Result Comment: NEGATIVE FOR INTRAEPITHELIAL LESION OR MALIGNANCY. Performed at: WBPerformed By: #### HIV12 #### [facility] [address] [place] [address] Dr. Nolvia Oliveira AptimaNegativeNormalNegativeOhiohealth Southeastern Medical CenterComment on above:Result Comment: This nucleic acid amplification test detects fourteen high-risk HPV types (16,18,31,33,35,39,45,51,52,56,58,59,66,68) without differentiation. Performed at: =GPerformed By: #### HIV12 #### [facility] [address] [address] [address] Nolvia Oliveira Genotype ReflexCommentMercy Health Tiffin HospitalComment on above:Result Comment: Criteria not met, HPV Genotype not performed. Performed at: WBPerformed By: #### HIV12 #### [facility] [address] [place] [address] Dr. Nolvia RuvalcabaMethodology:CommentLancaster Municipal Hospital on above: Result Comment: This liquid based ThinPrep(R) pap test was screened with the use of an image guided system. Performed at: WBPerformed By: #### HIV12 #### [facility] [address] [place] [address] Dr. Nolvia RuvalcabaNote:CommentLancaster Municipal Hospital on above:Result Comment: The Pap smear is a screening test designed to aid in the detection of premalignant and malignant conditions of the uterine cervix. It is not a diagnostic procedure and should not be used as the sole means of detecting cervical cancer. Both false-positive and false-negative reports do occur. . Performed at: WBPerformed By: #### HIV12 #### [address] [place] [address] [address] Novlia RuvalcabaPerformed by:CommentLancaster Municipal Hospital on above: Result Comment: Inessa Sanchez Garment Liner (ASCP) Performed at: WBPerformed By: #### HIV12 #### [facility] [address] [place] [address] Dr. Nolvia RuvalcabaSpecimen adequacy:CommentLancaster Municipal Hospital on above:Result Comment: Satisfactory for evaluation. Endocervical and/or squamous metaplastic cells (endocervical component) are present. Performed at: WBPerformed By: #### HIV12 #### [facility] [address] [place] [address] Dr. Nolvia RuvalcabaHEPATITIS C ANTIBODYon [id number] C Virus Ab<0.7Angcky2.0-0.9 [facility] on above:Result Comment: Negative: < 0.8 Indeterminate: 0.8 - 0.9 Positive: > 0.9 . HCV antibody alone does not differentiate between previous resolved infection and active infection. The CDC and current clinical guidelines recommend that a positive HCV antibody result be followed up with an HCV RNA test to support the diagnosis of acute HCV infection. [facility]al[facility] offers Hepatitis C Virus (HCV) RNA, Diagnosis, THERON (576003) and Hepatitis C Virus (HCV) Antibody with reflex to Quantitative Real-time PCR (103258).Performed By: #### HIV12 #### [facility] [address] [place] [address] Dr. Nolvia Tomlin 1 AND 2 WITH REFLEXon [id number] Screen 4th Generation wRfxNon-ReactiveNormalNon ReactiveThe [facility] Medical CenterComment on above:Result Comment: HIV Negative HIV-1/HIV-2 antibodies and HIV-1 p24 antigen were NOT detected. There is no laboratory evidence of HIV infection.Performed By: #### HIV12 #### [facility] [address] [place] [address] Dr. Nolvia Boykin [id number] [Catalytic activity/Vol]59 U/WUazmew24-12Bhr [facility] CenterComment on above:Performed By: #### ALT ####[facility] Daofclhnwd[address] [place], [place] [address]Dr.Nolvia ChangCBC AUTO DIFFon [id number] #0.1 103/ulNormal0.0-0.1The [facility] CenterComment on above: Performed By: #### CBC ####[facility] Izcqqespqd[address] [place], [place] [address]Dr.Yilan ChangBasophils/100 WBC (Bld)0.4 %Normal 0.2-2.0The [facility] CenterComment on above:Performed By: #### CBC ####[facility] Lgstmuobjo[address] [place], [place] [address]Dr.Yilan ChangEO # 0.2 103/ulNormal0.0-0.7The [facility] CenterComment on above:Performed By: #### CBC ####[facility] Awziahcnps[address] [place], [place] [address]Dr. Yilan ChangEosinophils/100 WBC (Bld)1.3 %Normal0.9-7.0The [facility] Comment on above:Performed By: #### CBC ####[facility] Hnjzlbvull58[address] [place], [place] [address]Dr.Yilan ChangErythrocyte distribution width (RBC) [Ratio]14.2 %Mmivyj97.0-15.0The [facility] CenterComment on above: Performed By: #### CBC ####[facility] Undjfggkdz326[address] [place], [place] [address]Dr.Nolvia ChangHematocrit (Bld) [Volume fraction]28.8 % Critically low36.0-48.0The [facility] CenterComment on above:Performed By: #### CBC ####[facility] Brpiqicwtk[address] [place], [place] [address]Dr. Nolvia ChangHemoglobin (Bld) [Mass/Vol]9.0 g/dLCritically low12.0-16.0The [facility] CenterComment on above:Performed By: #### CBC ####[facility] Vyycwrmpdz[address] [place], [place] [address]Dr.Nolvia ChangIG #0.16 10e3/ulCritically high0.00-0.03The [facility] CenterComment on above:Performed By: #### CBC ####[facility] Gsdullsexa[address] [place], [place] [address]Dr.Nolvia ChangIG %1.1 %Critically high0.0-0.5The [facility] CenterComment on above:Performed By: #### CBC ####[facility] Sqtmogummh0413[address] [place], [place] [address]Dr.Nolvia ChangLYMPH #1.8 103/ulNormal1.2-3.8The [facility] CenterComment on above:Performed By: #### CBC ####[facility] Zbuebykosf82[address] [place], [place] [address]Dr.Nolvia RuvalcabaLymphocytes/100 WBC (Bld)12.4 %Critically low20.5-60.0The [facility] CenterComment on above: Performed By: #### CBC ####[facility] Nopogbkkvp9837[address] [place], [place] [address]Dr.Nolvia ChangMANUAL DIFF REQNONormalThe [facility] CenterComment on above:Performed By: #### CBC ####[facility] [address] [address]Dr.Nolvia RuvalcabaH (RBC) [Entitic mass]28.6 zoAarkpj23.7-34.0The [facility] CenterComment on above: Performed By: #### CBC ####[facility] Letjwwkrgn490[address] [place], [place] [address]Dr.Nolvia RuvalcabaHC (RBC) [Mass/Vol]31.3 g/dLNormal 29.9-35.2The [facility] HospitalComment on above:Performed By: #### CBC ####[facility] Tqlmgqlncu495[address] [place], [place] [address]Dr. Nolvia JordonV (RBC) [Entitic vol]91.4 yEPojorh69.0-99.0The [facility] Comment on above:Performed By: #### CBC ####[facility] Evjbhbvuge[address] [place], [place] [address]Dr.Nolvia RuvalcabaMONO #1.0 103/ulCritically high0.3-0.8The [facility] CenterComment on above:Performed By: #### CBC ####[facility] Oclwcjoort3733[address] [place], [place] [address]Dr. Nolvia RuvalcabaMonocytes/100 WBC (Bld)6.9 %Normal1.7-12.0The [facility] Comment on above:Performed By: #### CBC ####[facility] Ameyfnigom778[address] [place], [place] [address]Dr.Nolvia JodronNEUT #11.3 103/ulCritically high1.4-6.5The [facility] CenterComment on above:Performed By: #### CBC ####[facility] Jplxuvozgj99[address] [place], [place] [address]Dr. Liyayaniv RuvalcabaNeutrophils/100 WBC (Bld)77.9 %Critically high43.0-75.0The [facility] CenterComment on above:Performed By: #### CBC ####[facility] Fsdpnlmmqs029[address] [place], [place] [address]Dr.Liyayaniv RuvalcabaPlatelet mean volume (Bld) [Entitic vol]9.8 fLNormal9.5-13.5The [facility] CenterComment on above:Performed By: #### CBC ####[facility] Jljgpcwgoa[address] [place], [place] [address]Dr.Liyalan YhymgFVJ144 103/shYxapcr327-939Tsy Fort Wayne HospitalComment on above:Performed By: #### CBC ####[facility] Oxtopzghsq0975[address] [place], [place] [address]Dr.Liyalan ChangRBC3.15 106/ul Critically low4.20-5.40The [facility] HospitalComment on above:Performed By: #### CBC ####[facility] Amvecfjunx715[address] [place], [place] [address]Dr. Liyalan ZuxbgOWJ67.6 103/ulCritically high4.0-11.0The [facility] CenterComment on above:Performed By: #### CBC ####[facility] Brlahhjxhe8[address] [place], [place] [address]Dr.Nolvia RuvalcabaCBC AUTO DIFFon [id number] #0.1 103/ulNormal0.0-0.1The [facility] CenterComment on above:Performed By: #### CBC ####[facility] Pqlybkjsng7880[address] [place], [place] [address]Dr. Nolvia ChangBasophils/100 WBC (Bld)0.3 %Normal0.2-2.0The [facility] CenterComment on above:Performed By: #### CBC ####[facility] Oyjxlzquoe9[address] [place], [place] [address]Dr.Yilan ChangEO #0.1 103/ulNormal0.0-0.7The [facility] CenterComment on above:Performed By: #### CBC ####[facility] Oylyzgrnzo3317[address] [place], [place] [address]Dr.Nolvia ChangEosinophils/100 WBC (Bld)1.0 %Normal0.9-7.0The [facility] CenterComment on above:Performed By: #### CBC ####[facility] Dxgmgthgsb611[address] [place], [place] [address]Dr.Nolvia ChangErythrocyte distribution width (RBC) [Ratio]14.2 %Normal 11.0-15.0The [facility] CenterComment on above:Performed By: #### CBC ####[facility] Vbosmgabjb3347[address] [place], [place] [address]Dr. Nolvia ChangHematocrit (Bld) [Volume fraction]33.5 %Critically low36.0-48.0The [facility] CenterComment on above:Performed By: #### CBC ####[facility] Moajbjxyaq589[address] [place], [place] [address]Dr.Nolvia ChangHemoglobin (Bld) [Mass/Vol]10.9 g/dLCritically low12.0-16.0The [facility] CenterComment on above:Performed By: #### CBC ####[facility] Salpfyrzxf4901[address] [place], [place] [address]Dr.Nolvia ChangIG #0.22 10e3/ulCritically high0.00-0.03 The [facility] CenterComment on above:Performed By: #### CBC ####[facility] Tadvzkajtr5399[address] [place], [place] [address]Dr.Nolvia ChangIG % 1.5 %Critically high0.0-0.5The [facility] CenterComment on above:Performed By: #### CBC ####[facility] Ibjbkyfqfc3612[address] [place], [place] [address]Dr.Nolvia RuvalcabaLYMPH #2.3 103/ulNormal1.2-3.8The [facility] CenterComment on above:Performed By: #### CBC ####[facility] Ptahsitmjo964[address] [place], [place] [address]Dr.Nolvia RuvalcabaLymphocytes/100 WBC (Bld)16.1 % Critically low20.5-60.0The [facility] HospitalComment on above:Performed By: #### CBC ####[facility] Udvjrowqwy560[address] [place], [place] [address]Dr. Nolvia RuvalcabaMANUAL DIFF REQNONormalThe [facility] CenterComment on above: Performed By: #### CBC ####[facility] Ijpcvapipy13[address] [place], [place] [address]Dr.Nolvia RuvalcabaH (RBC) [Entitic mass]29.0 pgNormal 26.7-34.0The [facility] CenterComment on above:Performed By: #### CBC ####[facility] [address] [address]Dr. Nolvia RuvalcabaHC (RBC) [Mass/Vol]32.5 g/eCIvhntp54.9-35.2The [facility] Comment on above:Performed By: #### CBC ####[facility] [address] [address]Dr.Nolvia RuvalcabaV (RBC) [Entitic vol]89.1 fL Kqetqr20.0-99.0The [facility] CenterComment on above:Performed By: #### CBC ####[facility] Uhkacxtlji16[address] [place], [place] [address]Dr. Nolvia RuvalcabaMONO #1.0 103/ulCritically high0.3-0.8The [facility] CenterComment on above:Performed By: #### CBC ####[facility] Uksqtjmmib4380[address] [place], [place] [address]Dr.Nolvia RuvalcabaMonocytes/100 WBC (Bld)7.0 %Normal 1.7-12.0The [facility] CenterComment on above:Performed By: #### CBC ####[facility] Xxywhdenbn65[address] [place], [place] [address]Dr. Nolvia RuvalcabaNEUT #10.6 103/ulCritically high1.4-6.5The [facility] CenterComment on above:Performed By: #### CBC ####[facility] Tbhvolzgcx7[address] [place], [place] [address]Dr.Nolvia RuvalcabaNeutrophils/100 WBC (Bld)74.1 %Normal 43.0-75.0The [facility] CenterComment on above:Performed By: #### CBC ####[facility] Vkmrozualz60[address] [place], [place] [address]Dr. Nolvia RuvalcabaPlatelet mean volume (Bld) [Entitic vol]10.4 fLNormal9.5-13.5The [facility] CenterComment on above:Performed By: #### CBC ####[facility] [address] [address]Dr.Nolvia RuvalcabaPLT320 103/ul Ijqnhn624-670Pol [facility] CenterComment on above:Performed By: #### CBC ####[facility] M[address]vdob[address] [address]Dr. Nolvia RuvalcabaRBC3.76 106/ulCritically low4.20-5.40The [facility] CenterComment on above:Performed By: #### CBC ####[facility] [address]tyie[address] [address]Dr.Nolvia RuvalcabaWBC14.3 103/ulCritically high4.0-11.0The [facility] CenterComment on above:Performed By: #### CBC ####[facility] [address] [address]Dr.Nolvia RuvalcabaCULTURE URINEon [id number] URINECulture Observations: NO GROWTH.NormalThe [facility] CenterComment on above:Performed By: #### URCX #### [facility] [address] [address] [address] Nolvia RuvalcabaDRUG SCREEN RAPID (URINE)on [id number]N [facility] on above:Performed By: #### DRUGRPD ####[facility] [address] [address]Dr. Nolvia RuvalcabaBAR NegativeNormalNEGATIVEOhiohealth Southeastern Medical CenterComment on above:Performed By: #### DRUGRPD ####[facility] [address]xt[address]fi[address] [address]Dr. Nolvia RuvalcabaBUPNegativeNormalNEGATIVEOhiohealth Southeastern Medical CenterComment on above:Performed By: #### DRUGRPD ####[facility] [address]avwac[address] [address]Dr. Nolvia RuvalcabaBZONegativeNormalNEGATIVEOhiohealth Southeastern Medical CenterComment on above:Performed By: #### DRUGRPD ####[facility] Mbjxbsyilb[address] [place], [place] [address]Dr. Nolvia ChangCOCNegative NormalNEGATIVEMercy Health Anderson Hospital HospitalComment on above:Performed By: #### DRUGRPD ####[facility] Fqbsifbnad555[address] [place], [place] [address]Dr. Nolvia RuvalcabaCUT-OFFSSEE BELOWNoalThClermont County HospitalComment on above:Result Comment: AMP (Amphetamine): 500ng/mL, BAR (Barbituates): 200 ng/mL, BZO (Benzodiazepines): 150 ng/mL, BUP (Buprenorphine): 10 ng/mL, MARIO (Cocaine): 150 ng/mL, mAMP (Methamphetamine): 500 ng/mL, MTD (Methadone): 200 ng/mL, OPI (Opiates): 100 ng/mL, OXY (Oxycodone): 100 ng/mL, PCP (Phencyclidine): 25 ng/mL, PPX (Propoxyphene): 300 ng/mL, THC (Cannabinoids): 50 ng/mL, TCA (Trycyclic Antidepressants): 300 ng/mLPerformed By: #### DRUGRPD ####[facility] Zbbfdngtdm[address] [place], [place] [address]Dr. Nolvia RuvalcabaDRUG CUT HEADERDRUG CLASS TEST SYSTEM CUT-OFF CONCENTRATIONS ARE FOLLOWS:NormalThe [facility] CenterComment on above:Performed By: #### DRUGRPD ####[facility] Scclachtbi[address] [place], [place] [address]Dr. Nolvia RuvalcabamAMP NegativeNormalNEGATIVEMercy Health Anderson Hospital HospitalComment on above:Performed By: #### DRUGRPD ####[facility] Ksplhhppcp04[address] [place], [place] [address]Dr. Nolvia RuvalcabaMTDNegativeNormalNEGATIVEMercy Health Anderson Hospital HospitalComment on above:Performed By: #### DRUGRPD ####[facility] Lvucwxojee48[address] [place], [place] [address]Dr. Nolvia RuvalcabaOPINegativeNormalNEGATIVEOhiohealth Southeastern Medical CenterComment on above:Performed By: #### DRUGRPD ####[facility] Sfevbsvuie[address] [place], [place] [address]Dr. Nolvia ChangOXYNegative NormalNEGATIVEOhiohealth Southeastern Medical CenterComment on above:Performed By: #### DRUGRPD ####[facility] [address] [address]Dr. Nolvia ChangPCPNegativeNormalNEGATIVEMercy Health Anderson Hospital HospitalComment on above: Performed By: #### DRUGRPD ####[facility] [address]cdipm[address] [address]Dr. Nolvia ChangPPXNegativeNormalNEGATIVEOhiohealth Southeastern Medical CenterComment on above:Performed By: #### DRUGRPD ####[facility] [address] [address]Dr. Nolvia RuvalcabaTCANegative NormalNEGATIVEOhiohealth Southeastern Medical CenterComment on above:Performed By: #### DRUGRPD ####[facility] [address] [address]Dr. Nolvia ChangTHCNegativeNormalNEGSt. Mary's Medical Center, Ironton CampusComment on above: Performed By: #### DRUGRPD ####[facility] [address]awfu[address] [address]Dr. Nolvia ChangTYPE AND SCREENon 73-83-6306BIOQ AND SCREENNegativeNormalThClermont County HospitalComment on above:Performed By: #### TNS #### [facility] [address] [address] [address] Nolvia Sánchez (CLEAN/CATCH) OCCUPATIONAL THERAPY ASST/MICRO IF IND.on 44-32-7501Ivwkipowa Ql (U) NegativeNormalNEGATIVEOhiohealth Southeastern Medical CenterComment on above:Performed By: #### MAUREEN DEVRIESCSIND ####[facility] [address] [address]Dr. Nolvia ChangClarity (U)SL CLOUDYAbnormalCLEMadison Health on above:Performed By: #### MAUREEN DEVRIESCSIND ####[facility] [address]ioxgjxd[address] [address]Dr. Nolvia ChangColor (U)LT. YELLOWNormalYELLOWOhiohealth Southeastern Medical CenterComment on above:Performed By: #### MAUREEN DEVRIESCSIND ####[facility] [address]we[address] [address]Dr. Liyalan JordonGlucose Ql (U)NegativeNormalNEGATIVEThe [facility] CenterComment on above:Performed By: #### KAYCE UACSIND ####[facility] [address]isfvt[address] [address]Dr. Yilan Ruvalcaba Hemoglobin Ql (U)SMALLAbnormalNEGATIVEThe [facility] CenterComment on above: Performed By: #### KAYCE UACSIND ####[facility] [address]wrqq[address] [address]Dr. Liyalan JordonKetones Ql (U)NegativeNormal NEGATIVEOhiohealth Southeastern Medical CenterComment on above:Performed By: #### KAYCE UACSIND ####[facility] Vhuymeaoxj[address] [place], [place] [address]Dr. Nolvia JordonLEUKOCYTESSMALLAbnormalNEGATIVEThe [facility] CenterComment on above: Performed By: #### KAYCE UACSIND ####[facility] Baykrrnvnc[address] [place], [place] [address]Dr. Nolvia JordonNitrite Ql (U)NegativeNormal NEGATIVEOhiohealth Southeastern Medical CenterComment on above:Performed By: #### MAUREEN DEVRIESCSIND ####[facility] [address]hp[address] [address]Dr. Liyayaniv ChangpH (U)6.0 [pH]Normal5-9The [facility] CenterComment on above: Performed By: #### MAUREEN DEVRIESCSIND ####[facility] Pgbexfvkcu33[address] [place], [place] [address]Dr. Liyalan ChangSPEC GRAVITY>=1.030Abnormal 1.005-<=1.025The [facility] CenterComment on above:Performed By: #### MAUREEN DEVRIESCSIND ####[facility] V[address]jbzljfqn64[address] [place], [place] [address]Dr. Nolvia RuvalcabaUA PROTEINNegativeNormalNEGATIVE/ TRACEThe [facility] Comment on above:Performed By: #### KAYCE UACSIND ####[facility] [address] [address]Dr. Nolvia RuvalcabaUR MICRO IND INDICATEDMercy Health Tiffin HospitalComment on above:Performed By: #### KAYCE UACSIND ####[facility] Fvgxnugkwa[address] [address]Dr. Nolvia ChangUrobilinogen Qn (U)0.2 {Cami'U}/dLNormal0.2 - 1.0The [facility] CenterComment on above:Performed By: #### KAYCE UACSIND ####[facility] Lpcbfmajmx280[address] [place], [place] [address]Dr. Nolvia RuvalcabaURINE MICROSCOPIC ONLYon [id number]DNXP SEEN The [facility] CenterComment on above:Performed By: #### KAYCE UACSIND ####[facility] Uzycaikvrf219[address] [place], [place] [address]Dr. Nolvia RuvalcabaBacteria identified Cx Nom (U)[facility] Comment on above:Performed By: #### KAYCE UACSIND ####[facility] Wjbcyxafhr[address] [place], [place] [address]Dr. Nolvia ChangCASTNONE SEEN NormalNONE SEENThe [facility] CenterComment on above:Performed By: #### KAYCE UACSIND ####[facility] Unvwnjbdui[address] [place], [place] [address]Dr. Nolvia RuvalcabaCrystals LM Nom (Urine sed)NONE SEENNormalNONE SEENThe [facility] CenterComwalter p. [facility] on above:Performed By: #### KAYCE UACSIND ####[facility] Wlnvsvzzxn[address] [place], [place] [address]Dr. Nolvia ChangEpithelial cells LM Ql (Urine sed)MODERATEAbnormalNONE SEEN /RAREThe [facility] CenterComment on above:Performed By: #### KAYCE UACSIND ####[facility] Gcneomxwsk[address] [place], [place] [address]Dr. Yilan ChangMUCOUSNONE SEENNormalNONE SEENThe [facility] CenterComment on above: Performed By: #### KAYCE UACSIND ####[facility] Eyuncibkng[address] [place], [place] [address]Ls. Liyayaniv LwisyNUO2-7Vfihxhpg8-7Jjb [facility] CenterComment on above:Performed By: #### KAYCE UACSIND ####[facility] Oiumedaoqy[address] [place], [place] [address]Dp. Nolvia RuvalcabaWBC 5-10AbnormalNONE SEENOhiohealth [facility]heastern Medical CenterComment on above:Performed By: #### KAYCE UACSIND ####[facility] [address] [place], [place] [address]Yi. Nolvia Barthvid-19 PCR ([facility])on 44-76-9522PHVR-CoV-2 (COVID-19) RNA THERON+probe Ql (Unsp spec)Not detectedNormalNOT DETECTEDThe [facility] Comment on above:Result Comment: This test is not yet approved or cleared by the [place] FDA. When there are no FDA-approved or cleared tests available, and other criteria are met, FDA can make tests available under an emergency access mechanism called an Emergency Use Authorization (EUA). The EUA for this test is supported by the Manual Machinist of Health and Human Service's (HHS's) declaration [...] consistent with SARS-CoV-2.Performed By: #### HIV12 #### [facility] [address] [place], [place] [address] Dr. Nolvia RuvalcabaGROUP B STREP CULTUREon 10-14-2021. agalactiae Ag Ql (Unsp spec) Culture Observations: NEGATIVE FOR GROUP B STREPTOCOCCUS.NormalThe [facility] CenterComment on above: Performed By: #### GBSCX #### [facility] [address] [place] [address] [address] Nolvia Dorantes C RNA BY PCR QUANT (NON-GRAPHICAL) Won 54-14-4373UXE Genotype RTNIMercy Health Tiffin HospitalComment on above:Result Comment: Not indicated Performed By: #### HCVPCRN ####[facility] [address] [place] [address]Dr. Yilan ChangHCV ilc10QLUBEGDfidyeKyaMercy Health Tiffin HospitalComment on above:Result Comment: Unable to calculate result since non- numeric result obtained for component test.Performed By: #### HCVPCRN ####[facility] [address] [place] [address]Dr. Nolvia RuvalcabaHepatitis C QuantitationNot TriHealthComment on above:Performed By: #### HCVPCRN ####[facility] [address] [place] [address]Dr. Nolvia ChangTest Information:[facility] CampusComwalter p. [facility] on above: Result Comment: The quantitative range of this assay is 15 IU/mL to 100 million IU/mL.Performed By: #### HCVPCRN ####[facility] [address] [place] [address]Dr. Nolvia RuvalcabaHIV 1 AND 2 WITH REFLEXon 38-88-6642ZVD Screen 4th Generation wRfxNon-ReactiveNormalNon ReactiveThe [facility] Comment on above:Result Comment: HIV Negative HIV-1/HIV-2 antibodies and HIV-1 p24 antigen were NOT detected. There is no laboratory evidence of HIV infection.Performed By: #### A1C #### [facility] [address] [place] [address] Dr. Nolvia StreetR QUANTon 63-80-3029Neshw Plasma Reagin, QuantNon-Reactive NormalNonRea<1:1The [facility] CenterComment on above:Result Comment: Please Note: This test does not meet current guidelines for screening and diagnosis of syphilis. This test is intended for following treatment response in patients being treated for syphilis infection. To screen for syphilis infection, a reflex cascade that includes both RPR and a treponema-specific assay should be utilized, such as Treponema pallidum (Syphilis) Screening [place] (156692) or Rapid Plasma Reagin (RPR) Test With Reflex to Quantitative RPR and Confirmatory Treponema pallidum Antibodies (416533).Performed By: #### HIV12 #### [facility] [address] [place] [address] Dr. Nolvia RuvalcabaGLUCOSE - 1HRon 63-69-3584Gavpkol [Mass/Vol]124 mg/dLCritically bqzy70-850Xvk [facility] CenterComment on above:Performed By: #### GLU1HR ####[facility] [address] [place] [address]Dr. Nolvia RuvalcabaHEMOGRAM AND PLATELon 61-30-0851Zkfpapnafu (Bld) [Volume fraction] 33.2 %Critically low36.0-48.0The [facility] CenterComment on above:Performed By: #### HIV12 #### [facility] [address] [place] [address] Dr. Nolvia RuvalcabaHemoglobin (Bld) [Mass/Vol]10.5 g/dLCritically low12.0-16.0The [facility] CenterComment on above:Performed By: #### HIV12 #### [facility] [address] [place] [address] Dr. Nolvia VerdinH (RBC) [Entitic mass]29.4 vtIvhiab69.7-34.0The [facility] CenterComment on above:Performed By: #### HIV12 #### [facility] [address] [place] [address] Dr. Nolvia RuvalcabaMCHC (RBC) [Mass/Vol]31.6 g/xBCindwa57.9-35.2The [facility] CenterComment on above:Performed By: #### HIV12 #### [facility] [address] [place] [address] Dr. Nolvia VerdinV (RBC) [Entitic vol]93.0 aYIvawvo33.0-99.0The [facility] HospitalComment on above:Performed By: #### HIV12 #### [facility] [address] [place] [address] [address] Nolvia RuvalcabaPLT303 103/ptPaitzm808-903Rvn [facility] CenterComment on above: Performed By: #### HIV12 #### [facility] [address] [place] [address] [address] Nolvia RuvalcabaRBC3.57 106/ulCritically low4.20-5.40The [facility] CenterComment on above:Performed By: #### HIV12 #### [facility] [address] [place] [address] [address] Nolvia RuvalcabaWBC12.3 103/ulCritically high4.0-11.0The [facility] CenterComment on above:Performed By: #### HIV12 #### [facility] [address] [place] [address] [address] Nolvia Posadas PREG PLACENTAon 00-01-0637RY PREG PLACENTAEXAMINATION: US PREG PLACENTA HISTORY: Low lying placenta COMPARISON: Ultrasound placenta 07/30/2021 FINDINGS: PLACENTA: Posterior with lower margin 3.8 cm from os. CERVIX LENGTH: 4.6 cm; closed. HEART RATE: 138 bpm OTHER: None. IMPRESSION: 1. Posterior placenta which is no longer low-lying. Electronically authenticated by: FRANCIA CRENSHAW Date: 2021-08-18 16:15NormalOhio State East Hospital PREG PLACENTAon 63-51-0623SC PREG PLACENTAEXAMINATION: US PREG PLACENTA HISTORY: Placenta previa without hemorrhage COMPARISON: Ultrasound anatomy 06/18/2021 FINDINGS: PLACENTA: Posterior, grade 1, with lower margin 2.5 cm from os. CERVIX LENGTH: 3.7 cm, closed. HEART RATE: 134 bpm OTHER: None. IMPRESSION: 1. Low lying posterior placenta with margin 2.5 cm from os. Electronically authenticated by: FRANCIA CRENSHAW Date: 2021-07-30 17:39NoUniversity [facility]als [facility] C RNA BY PCR QUANT (NON-GRAPHICAL) Won 51-85-2805DMA GenotypeRTNIMercy Health Tiffin HospitalComwalter p. reuther psychiatric hospital on above:Result Comment: Not indicatedPerformed By: #### HCVPCRN ####[facility] [address] [place] [address]Dr. Nolvia ChangHCV hdq89IHIAIWDuxgqxZdbLancaster Municipal Hospital on above:Result Comment: Unable to calculate result since non- numeric result obtained for component test.Performed By: #### HCVPCRN ####[facility] [address] [place], [place] [address]Dr. Nolvia ChangHepatitis C QuantitationNot detectedMercy Health Tiffin HospitalComwalter p. reuther psychiatric hospital on above:Performed By: #### HCVPCRN ####[facility] [address] [place], [place] [address]Dr. Nolvia RuvalcabaTest Information:[facility] on above: Result Comment: The quantitative range of this assay is 15 IU/mL to 100 million IU/mL.Performed By: #### HCVPCRN ####[facility] [address] [place], [place] [address]Dr. Nolvia ChangHIV 1 AND 2 WITH REFLEXon 05-55-2814DYQ Screen 4th Generation wRfxNon-ReactiveNormalNon ReactiveOhiohealth [facility]heastern Medical Center Comment on above:Result Comment: HIV Negative HIV-1/HIV-2 antibodies and HIV-1 p24 antigen were NOT detected. There is no laboratory evidence of HIV infection.Performed By: #### HIV12 ####[facility] [address] [place], [place] [address]Dr. Nolvia ChangRPR QUANTon 05-07-8510Ptzqd Plasma Reagin, QuantNon-ReactiveNormal NonRea<1:1The [facility] on above:Result Comment: Please Note: This test does not meet current guidelines for screening and diagnosis of syphilis. This test is intended for following treatment response in patients being treated for syphilis infection. To screen for syphilis infection, a reflex cascade that includes both RPR and a treponema-specific assay should be utilized, such as Treponema pallidum (Syphilis) Screening [place] (459215) or Rapid Plasma Reagin (RPR) Test With Reflex to Quantitative RPR and Confirmatory Treponema pallidum Antibodies (872102).Performed By: #### RPRQ #### [facility] [address] [place] [address] [address] Nolvia Posadas PREG ANATOMY SINGLEon 15-61-5102OL PREG ANATOMY SINGLE EXAMINATION: US PREG ANATOMY [...] Electronically authenticated by: KASEY NYE Date: 2021-06-18 16:55NoCleveland Clinic FoundationHEP B SURFACE AB QUALITATIVEon 86-74-0285Ndo B Surface Ab, Qual ReactiveNoCleveland Clinic FoundationComment on above:Result Comment: Non Reactive: Inconsistent with immunity, less than 10 mIU/mL Reactive: Consistent with immunity, greater than 9.9 mIU/mLPerformed By: #### HBSABQL ####[facility] [address] [place] [id number]. Nolvia RuvalcabaHEPATITIS C ANTIBODYon 29-68-9477Tix C Virus Ab<0.7Pozexz9.0-0.9The [facility] Fairview Hospitalment on above:Result Comment: Negative: < 0.8 Indeterminate: 0.8 - 0.9 Positive: > 0.9 . The [facility] recommends that a positive HCV antibody result be followed up with a HCV Nucleic Acid Amplification test (934728).Performed By: #### HIV12 #### [facility] [address] [place], [place] [address] Dr. Nolvia Tomlin 1 AND 2 WITH REFLEXon 36-59-2449BHD Screen 4th Generation wRfxNon-ReactiveNormalNon ReactiveThe [facility] on above:Result Comment: HIV Negative HIV-1/HIV-2 antibodies and HIV-1 p24 antigen were NOT detected. There is no laboratory evidence of HIV infection.Performed By: #### HIV12 ####[facility] [address] [place] [address]Dr. Nolvia RuvalcabaRPR QUANTon 43-47-1340Wjyrq Plasma Reagin, QuantNon-ReactiveNormal NonRea<1:1The [facility] on above:Result Comment: Please Note: This test does not meet current guidelines for screening and diagnosis of syphilis. This test is intended for following treatment response in patients being treated for syphilis infection. To screen for syphilis infection, a reflex cascade that includes both RPR and a treponema-specific assay should be utilized, such as Treponema pallidum (Syphilis) Screening [place] (253331) or Rapid Plasma Reagin (RPR) Test With Reflex to Quantitative RPR and Confirmatory Treponema pallidum Antibodies (903738).Performed By: #### RPRQ ####[facility] [address] [place] [address] [address]Dr. Nolvia Ruvalcaba CHLAMYDIA/GONOCOCCUS THERON (SWAB/URINE/PAPon 47-74-8109Rwkywdmbj trachomatis, THERON NegativeNormalNegativeThe [facility] CenterComment on above:Performed By: #### CT/NGNA ####[facility] [address] [place] [address]DrDinorah RuvalcabaNeisseria gonorrhoeae, NAANegativeNormalNegativeOhiohealth Southeastern Medical CenterComment on above:Performed By: #### CT/NGNA ####[facility] [address] [place] [address] [address]Dr. Nolvia Ruvalcaba VAGINITIS/VAGINOSIS DNA PROBEon 54-18-9625Rhbonbm speciesNegativeNormalNegative The [facility] CenterComment on above:Performed By: #### HIV12 #### [facility] [address] [place] [address] [address] Nolvia RuvalcabaGardnerella vaginalisNegativeNormalNegativeOhiohealth [facility] Comment on above:Performed By: #### HIV12 #### [facility] [address] [place] [address] Dr. Nolvia RuvalcabaTrichomonas vaginalisNegativeNormalNegativeOhiohealth [facility] Comment on above:Performed By: #### HIV12 #### [facility] [address] [place] [address] Dr. Nolvia Dorantes B SURFACE ANTIGEN SCREENon 49-06-3935USdSz ScreenNegative NormalNegativeOhiohealth Southeastern Medical CenterComment on above:Performed By: #### HBSANS ####[facility] [address] [place] [address]Dr. Nolvia RuvalcabaHEPATITIS C VIRUS AB W/ REFLEX QUANTon 00-07-3078PUJ AB<0.1Normal 0.0-0.9The [facility] CenterComment on above:Performed By: #### HCVPCRR ####[facility] [address] [place] [address]DrDinorah RuvalcabaInterpretation:CommentNormalThe [facility] CenterComment on above: Result Comment: Negative Not infected with HCV, unless recent infection is suspected or other evidence exists to indicate HCV infection.Performed By: #### HCVPCRR ####[facility] [address] [place], [place] [address]DrDinorah RuvalcabaHIV 1 AND 2 WITH REFLEXon 70-16-2700XJP Screen 4th Generation wRfx Non-ReactiveNormalNon ReactiveThe [facility] CenterComment on above:Result Comment: HIV Negative HIV-1/HIV-2 antibodies and HIV-1 p24 antigen were NOT detected. There is no laboratory evidence of HIV infection.Performed By: #### HIV12 #### [facility] [address] [place] [address] [address] Nolvia Sandoval QUANTon 80-30-3047Nijnr Plasma Reagin, QuantNon-Reactive NormalNonRea<1:1The [facility] CenterComment on above:Performed By: #### RPRQ ####[facility] [address] [place] [address]Dr. Nolvia OdellA AB IGGon 71-98-1710Ogpkfsq Antibodies, IgG1.50 indexNormal Immune >0.99The [facility] on above:Result Comment: Non-immune <0.90 Equivocal 0.90 - 0.99 Immune >0.99Performed By: #### HIV12 #### [facility] [address] [place] [address] Dr. Nolvia Pike AUTO DIFFon 01-72-5295OZBJ #0.0 103/ulNormal0.0-0.1The [facility] CenterComment on above:Performed By: #### HIV12 #### [facility] [address] [place] [address] Dr. Nolvia RuvalcabaBasophils/100 WBC (Bld)0.3 %Normal0.2-2.0The [facility] Comment on above:Performed By: #### HIV12 #### [facility] [address] [place] [address] Dr. Nolvia Geiger #0.1 103/ulNormal0.0-0.7The [facility] CenterComment on above: Performed By: #### HIV12 #### [facility] [address] [place] [address] Dr. Nolvia Trivediosinophils/100 WBC (Bld)1.4 %Normal0.9-7.0The [facility] Comment on above:Performed By: #### HIV12 #### [facility] [address] [place] [address] Dr. Nolvia Trivedirythrocyte distribution width (RBC) [Ratio]12.4 %Aktirk46.0-15.0 The [facility] CenterComment on above:Performed By: #### HIV12 #### [facility] [address] [place] [address] Dr. Nolvia RuvalcabaHematocrit (Bld) [Volume fraction]40.7 %Infotv92.0-48.0The [facility] HospitalComment on above:Performed By: #### HIV12 #### [facility] [address] [place] [address] Dr. Nolvia RuvalcabaHemoglobin (Bld) [Mass/Vol]13.5 g/tOZujjmv78.0-16.0The [facility] CenterComment on above:Performed By: #### HIV12 #### [facility] [address] [place] [address] Dr. Nolvia Jiménez #0.04 10e3/ulCritically high0.00-0.03The [facility] Comment on above:Performed By: #### HIV12 #### [facility] [address] [place] [address] Dr. Nolvia Jiménez %0.4 %Normal0.0-0.5The [facility] CenterComment on above: Performed By: #### HIV12 #### [facility] [address] [place] [address] Dr. Nolvia DobbinsH #1.3 103/ulNormal1.2-3.8The [facility] CenterComment on above:Performed By: #### HIV12 #### [facility] [address] [place] [address] Dr. Nolvia Velazquezmphocytes/100 WBC (Bld)13.8 %Critically low20.5-60.0The [facility] CenterComment on above:Performed By: #### HIV12 #### [facility] [address] [place] [address] Dr. Nolvia CalderonUAL DIFF REQNONormalThe [facility] CenterComment on above: Performed By: #### HIV12 #### [facility] [address] [place] [address] Dr. Nolvia Verdin (RBC) [Entitic mass]30.1 osCedcli39.7-34.0The [facility] CenterComment on above:Performed By: #### HIV12 #### [facility] [address] [place] [address] Dr. Nolvia Verdin (RBC) [Mass/Vol]33.2 g/xIAivtbp06.9-35.2The [facility] CenterComment on above:Performed By: #### HIV12 #### [facility] [address] [place] [address] Dr. Nolvia Verdin (RBC) [Entitic vol]90.8 qNXzpzri39.0-99.0The [facility] CenterComment on above:Performed By: #### HIV12 #### [facility] [address] [place] [address] Dr. Nolvia De Jesus #0.4 103/ulNormal0.3-0.8The [facility] CenterComment on above:Performed By: #### HIV12 #### [facility] [address] [place] [address] Dr. Nolvia Lezamaocytes/100 WBC (Bld)4.2 %Normal1.7-12.0[facility] Comment on above:Performed By: #### HIV12 #### [facility] [address] [place] [address] Dr. Nolvia Rodriguez #7.5 103/ulCritically high1.4-6.5The [facility] Comment on above:Performed By: #### HIV12 #### [facility] [address] [place] [address] Dr. Nolvia Huiutrophils/100 WBC (Bld)79.9 %Critically high43.0-75.0[facility] Medical CenterComment on above:Performed By: #### HIV12 #### [facility] [address] [place] [address] Dr. Yilan ChangPlatelet mean volume (Bld) [Entitic vol]9.3 fLCritically low 9.5-13.5The [facility] CenterComment on above:Performed By: #### HIV12 #### [facility] [address] [place] [address] [address] Nolvia RuvalcabaPLT322 103/btKivfzv858-793Ecx [facility] CenterComment on above: Performed By: #### HIV12 #### [facility] [address] [place] [address] [address] Nolvia RuvalcabaRBC4.48 106/ulNormal4.20-5.40The [facility] CenterComment on above:Performed By: #### HIV12 #### [facility] [address] [address] [address] Nolvia RuvalcabaWBC9.4 103/ulNormal4.0-11.0The [facility] CenterComment on above: Performed By: #### HIV12 #### [facility] [address] [place] [address] [address] Nolvia RuvalcabaCULTUSHA URINEon 65-50-8579SVGNOTA URINECulture Observations: LIGHT GROWTH OF MIXED GENITAL SPENCER. NO POTENTIAL PATHOGENS SEEN.NormalThe [facility] CenterComment on above:Performed By: #### URCX ####[facility] [address] [place] [address]Dr. Nolvia Ruvalcaba GLYCOHEMOGLOBIN A1Con 92-68-2270MCQ RECOMMENDATIONADA THERAPEUTIC TARGET 6.0 - 7.0 ACTION SUGGESTED > 7.0NormDiley Ridge Medical CenterComment on above:Performed By: #### A1C #### [facility] [address] [address] [address] Nolvia RuvalcabaGlucose [Mass/Vol]108 mg/dLNoCleveland Clinic FoundationComment on above:Performed By: #### A1C #### [facility] [address] [place] [address] Dr. Nolvia RuvalcabaHbA1c (Bld) [Mass fraction]5.4 %Normal<=6.0The [facility] Comment on above:Performed By: #### A1C #### [facility] [address] [place], [place] [address] Dr. Nolvia RuvalcabaTYPE AND SCREENon 94-78-9121XDGT AND SCREENNegativeMercy Health Tiffin HospitalComment on above:Performed By: #### TNS ####[facility] [address] [place], [place] [address]AnDr.Yilan Posadas PREG TVon 11-89-6553DA PREG TVEXAMINATION: US PREG TV HISTORY: Missed [...] Electronically authenticated by: FRANCIA CRENSHAW Date: 2021-03-27 09:39[facility] Vital Signs Date TimeVital SignValuePerforming LaeszwterSewnnjni83-05-0011 14:04-0500Body mass index (BMI) [Ratio]29.95 kg/m2Cindy ZHU Work Phone: [facility] HospitalNejpuggwml88-62-0988 14:04-0500Body .36 kgCindy ZHU Work Phone: [facility] HospitalNjyleqfxhn45-66-1746 14:04-0500Diastolic blood acvgdqpq79 mm[Hg]Cindy ZHU Work Phone: [facility] HospitalRvmzckzjwb12-14-5132 14:04-0500Systolic blood mm[Hg]Cindy ZHU Work Phone: [facility] HospitalGwfabymyxi10-64-2868 14:18-0400Body mass index (BMI) [Ratio]29.56 kg/a0Wxlpc Mary Lou [employer] Work Phone: [facility] HospitalSflgtvqgql68-29-9163 14:18-0400Body .18 kgCorey Mary Lou DO Work Phone: [facility] HospitalIvqdlqyjys98-45-3459 14:18-0400Diastolic blood zgfhemaa86 mm[Hg]Arelis Mary Lou DO Work Phone: [phone] [place], [place] [address]Jlchkrnxzg09-69-2197 14:18-0400Systolic blood mftgffem040 mm[Hg]Arelis Mary Lou DO Work Phone: [phone] [place], [place] [address]Vyswuezhmv55-28-6226 14:32-0400Body mass index (BMI) [Ratio]29.08 kg/e3DtnxpdtfPatricia Kelly [employer] Work Phone: [phone] [place], [place] [address]Debmydbfiu78-51-1559 14:32-0400Body digvfw70.75 kgKrbulmaro Flanaganly [employer] Work Phone: [phone] [place] [address]-07-2025 14:32-0400Diastolic blood clapwipz85 mm[Hg]Patricia Robin [employer] Work Phone: [phone] [place], [place] [address]Evvjmwjgxb62-26-8476 14:32-0400Systolic blood qgrmqqie726 mm[Hg]Patricia Robin [employer] Work Phone: [phone] [place], [place] [address]Lzqdwpuayq91-75-9320 10:11-0400Body mass index (BMI) [Ratio]28.89 kg/b1Ewbfg Mary Lou DO Work Phone: [phone] [place], [place] [address]Zvnqbzmwwm19-02-5608 10:11-0400Body yctorq94.18 kgCorey Mary Lou DO Work Phone: [phone] [place], [place] [address]Iavbjwdugo28-70-5291 10:11-0400Diastolic blood ovnxeinh54 mm[Hg]Arelis Mary Lou DO Work Phone: [phone] [place] [address]-22-2025 10:11-0400Systolic blood kwsxlyvn314 mm[Hg]Arelis Mary Lou DO Work Phone: [phone])[facility] [place] [address]-10-2025 15:02-0400Body mass index (BMI) [Ratio]28.74 kg/m2Cindy HZU Work Phone: [phone] [place] [address]-10-2025 15:02-0400Body xcmxiz17.73 kgAmy William PA Work Phone: [facility] HospitalDmdcxcsxfb27-68-3560 15:02-0400Diastolic blood csxqaxmm29 mm[Hg]Cindy Thomas PA Work Phone: [facility] HospitalBqbgxuxfam76-60-4085 15:02-0400Systolic blood akhqctak466 mm[Hg]Cindy Thomas PA Work Phone: [phone]-[facility]Pointe HospitalShfhzudcjo35-19-4443 15:04-0400Body mass index (BMI) [Ratio]28.28 kg/q6Oqogc Mary Lou DO Work Phone: [phone] [place], [place] [address]Ykrimhtkgl50-61-6438 15:04-0400Body unssxy04.37 kgCorey Mary Lou DO Work Phone: [phone] [place], [place] [address]Ckfpwozruy89-62-5211 15:04-0400Diastolic blood yycoahqs61 mm[Hg]Arelis Mary Lou DO Work Phone: [phone] [place], [place] [address]Mdiytxlefv00-19-5898 15:04-0400Systolic blood mm[Hg]Arelis Mary Lou DO Work Phone: [phone] [place], [place] [address]Kzpyhbmkko06-07-5864 15:37-0400Body mass index (BMI) [Ratio]27.06 kg/m2Amy William PA Work Phone: [phone] [place], [place] [address]Whrhuuvmbk75-74-2440 15:37-0400Body byvihg93.74 kgCindy William PA Work Phone: [phone] [place], [place] [address]Xisnhqcczn19-44-2569 15:37-0400Diastolic blood tpvcumct26 mm[Hg]Cindy Thomas PA Work Phone: [phone] [place], [place] [address]Yglvlnfpwa68-31-5069 15:37-0400Systolic blood sdqisiaq338 mm[Hg]Cindy Thomas PA Work Phone: [phone] [place], [place] [address]Skuzqjwzmr55-42-0430 09:48-0400Body mass index (BMI) [Ratio]26.72 kg/g3Fnwym Mary Lou DO Work Phone: [phone]-[facility]Pointe HospitalWwybavbksl19-94-9424 09:48-0400Body yrmhak59.72 kgCorey Mary Lou DO Work Phone: noEcolibrium SolarMjrieogqyn05-34-8939 09:48-0400Diastolic blood orgdbskj26 mm[Hg]Arelisjohn Ericksono DO Work Phone: noEcolibrium SolarWxwhujlqqt06-07-9424 09:48-0400Systolic blood uzikfmlc652 mm[Hg]Arelis Ericksono DO Work Phone: noRe[facility] HospitalIdtbucyqxu50-44-8090 11:15-0500Body necsrf379.72 cmJenn Gallegos Other [employer] Other 01-11-2024 11:15-0500Body mass index (BMI) [Ratio] 26.76 kg/x6BrvnpnrJenn Gallegos Other [employer] Other 01-11-2024 11:15-0500Body vzoifj19.83 kgMattkamron Gallegos Other [employer] Other 01-11-2024 11:15-0500Diastolic blood wptidohy05 mm[Hg] Jenn Galelgos Other [employer] Other 01-11-2024 11:15-0500Respiratory rate16 /minJenn Gallegos Other [employer] Other 01-11-2024 11:15-6544OpG2% (BldA) [Mass fraction]99 % Jenn Gallegos Other [employer] Other 01-11-2024 11:15-0500Systolic blood hhkybrji329 mm[Hg] Jenn Gallegos Other [employer] Other 03-23-2023 14:45-0400Body boofha900.72 cmMatthew Rosy Other [employer] Other 03-23-2023 14:45-0400Body mass index (BMI) [Ratio] 27.85 kg/m8CuycyhgJenn Gallegos Other [employer] Other 03-23-2023 14:45-0400Body vuzytw94.1 kgJenn Gallegos Other [employer] Other 03-23-2023 14:45-0400Diastolic blood ocfzlddk99 mm[Hg] Jenn Gallegos Other [employer] Other 03-23-2023 14:45-0400Respiratory rate16 /minJenn Gallegos Other [employer] Other 03-23-2023 14:45-1596QeG3% (BldA) [Mass fraction]99 % Jenn Gallegos Other [employer] Other 03-23-2023 14:45-0400Systolic blood cgbomxap780 mm[Hg] Jenn Gallegos Other [employer] Other 12-29-2022 16:30-0500Body apsuok076.72 cmRicheun Estrada Other [employer] Other 12-29-2022 16:30-0500Body mass index (BMI) [Ratio] 28.64 kg/o4Wcuedcj Binks Other [employer] Other 12-29-2022 16:30-0500Body dziiag61.46 kgRichard Binks Other [employer] Other 12-29-2022 16:30-0500Diastolic blood gececydv85 mm[Hg] Mike Estrada Other [employer] Other 12-29-2022 16:30-0500Respiratory rate16 /minMike Estrada Other [employer] Other 12-29-2022 16:30-2767OuH9% (BldA) [Mass fraction]97 % Mike Estrada Other [employer] Other 12-29-2022 16:30-0500Systolic blood utzzqskb745 mm[Hg] Mike Estrada Other [employer] Other 12-29-2021 16:15-0500Body .72 cmMattkamron Gallegos Other [employer] Other 12-29-2021 16:15-0500Body mass index (BMI) [Ratio] 27.37 kg/j5Axmwtqrkamron Gallegos Other [employer] Other 12-29-2021 16:15-0500Body cqbkii67.65 kgMatthew Rosy Other [employer] Other 12-29-2021 16:15-0500Diastolic blood pcrmnivs66 mm[Hg] Jenn Gallegos Other [employer] Other 12-29-2021 16:15-0500Respiratory rate16 /minMattkamron Gallegos Other [facility] Other 12-29-2021 16:15-2408SoA4% (BldA) [Mass fraction]99 % Jenn Gallegos Other [facility] Other 12-29-2021 16:15-0500Systolic blood mm[Hg] Jenn Gallegos Other [facility] Other Encounters Encounter DateEncounter TypeCare ProviderFacilityStart: 12-17-2024 End: 51-26-4565Wwsdqu Montez [facility] Work Phone: [facility] [place] [facility]Start: 12-17-2024 End: 09-34-8628Kvpjfy Montez ZHU Work Phone: [facility]Start: 12-17-2024 End: 48-86-0680Qrjdbzje flow Eric ZHU Work Phone: [facility]BGYNComment on above:Third trimester ([facility]); 34 weeks gestation of ([facility])Start: 12-17-2024 End: 12-14-6598sckocadefmPRM RAMTREVORNot AvailableStart: 12-04-2024 End: 15-99-9619Xftkjipm flow sheetCorey Mary Lou DO Work Phone: [facility] [place] [facility]BGYNComment on above:32 weeks gestation of ([facility]); Third trimester ([facility]); Anemia, unspecified typeStart: 12-04-2024 End: 95-35-2991wxpwisaxakRKABH FAZIONot AvailableStart: 11-20-2024 End: 17-06-9222Sebnwrfd flow sheetPatricia Kelly NP Work Phone: [facility] [place] [facility]BGYNComment on above: size inconsistent with dates ([facility]) (Primary Dx); Third trimester ([facility]); 30 weeks gestation of ([facility])Start: 11-20-2024 End: 47-97-5147getmzanyiiYWUWLOYX EBERLYNot AvailableStart: 11-20-2024 End: 54-30-4918Rmoiif Joe Kelly NP Work Phone: [facility]YNStart: 11-20-2024 End: 55-17-0486Nxqupr Joe Kelly NP Work Phone: [facility] [place] [facility]YNStart: 11-05-2024 End: 95-46-7209Ivgpii flowsheetCorey Mary Lou DO Work Phone: [facility] [place] [facility]YNStart: 11-05-2024 End: 46-63-0324Mjtllk flowsheetCorey Mary Lou DO Work Phone: [facility] [place] [facility]BGYNStart: 11-05-2024 End: 25-96-6299Oinkwiokx Result EncounterPatricia Kelly NP Work Phone: [facility] External Department UnsolicitedStart: 11-05-2024 End: 29-13-8452Htqsxkxk flow sheetCorey Mary Lou DO Work Phone: [facility]BGYNComment on above:Anemia, unspecified type (Primary Dx); Third trimester ([facility]); 28 weeks gestation of ([facility])Start: 11-05-2024 End: 05-14-3758qkaplafawqSJQUD FAZIONot AvailableStart: 10-24-2024 End: 61-21-6542Cpzfxzfl flow sheetCindy ZHU Work Phone: [facility]BGYNComment on above:26 weeks gestation of ([facility]); Second trimester ([facility]); Anemia during in second trimester ([facility])Start: 10-24-2024 End: 29-46-6592wzqeuwvfhrTJF RAMEYNot AvailableStart: 10-24-2024 End: 39-00-5664Ziagrr flowsTiara ZHU Work Phone: NO [facility]BGYNStart: 10-24-2024 End: 18-69-3086Nnzovr flowsheetCindy ZUH Work Phone: [facility] [place] [facility]YNStart: 10-08-2024 End: 20-92-8752Tpzfmbbxj Result EncounterCorey Mary Lou DO Work Phone: [facility] External Department UnsolicitedStart: 10-08-2024 End: 00-86-5765Yzeflifkn Result EncounterCorey Mary Lou DO Work Phone: noMS External Department UnsolicitedStart: 09-26-2024 End: 06-25-5679Pghandwk flow sheetCorey Mary Lou DO Work Phone: [facility]BGYNComment on above:Diabetes mellitus screening; Second trimester ([facility]); 22 weeks gestation of ([facility])Start: 09-26-2024 End: 56-74-2213ngorpwkdovVLCPA FAZIONot AvailableStart: 09-26-2024 End: 41-30-1856Honuvd flowsheetCorey Mary Lou DO Work Phone: [facility] [place] [facility]YNStart: 09-26-2024 End: 06-59-8475Ufhrvn flowsheetCorey Mary Lou DO Work Phone: [facility]YNStart: 09-13-2024 End: 80-54-8851dkgxbhoojaECD RAMEYNot AvailableStart: 08-29-2024 End: 10-05-8798Rlbclmu encounter procedureCindy ZHU Work Phone: [facility] HealthcareStart: 08-29-2024 End: 17-55-6759Qprgglte preventive med est patient 18-39 yrsCindy ZHU Work Phone: [facility] OBComment on above:Well woman exam with routine gynecological exam; Screening, , for anatomic survey ([facility]); Exposure to STD; Need for maternal serum alpha-protein (MSAFP) screening ([facility]); Second trimester ([facility]); 18 weeks gestation of ([facility])Start: 08-29-2024 End: 43-52-5589zobvbizuhbFFV EULALIARay AvailableStart: 08-29-2024 End: 55-15-6382Tiukoe flowsheetCindy ZHU Work Phone: [facility] OBStart: 08-29-2024 End: 08-01-3709Divwwv flowsheetCindy ZHU Work Phone: [facility] OBStart: 08-29-2024 End: 20-39-5107Ajikhywek Result EncounterCindy ZHU Work Phone: [facility] External Department UnsolicitedStart: 08-29-2024 End: 67-92-0205Gpgubdky Result EncounterCindy ZHU Work Phone: noMS External Department UnsolicitedStart: 08-02-2024 End: 58-16-0599Fsvkdp flowsheetCorey Mary Lou DO Work Phone: [facility] OBStart: 08-02-2024 End: 05-06-9177Pkljxo flowsheetCorey Mary Lou DO Work Phone: [facility] OBStart: 08-02-2024 End: 02-67-6377Wpydqtvv flow sheetCorey Mary Lou DO Work Phone: [facility] OBComment on above:Second trimester ([facility]); 14 weeks gestation of ([facility])Start: 08-02-2024 End: 95-17-1145zwyatpcsdwFUFWN FAZIONot AvailableStart: 07-24-2024 End: 64-57-6447Orcnxvxws Result EncounterCorey Mary Lou DO Work Phone: [facility] External Department UnsolicitedStart: 07-24-2024 End: 57-11-3572Ewoxkylay Result EncounterCorey Mary Lou DO Work Phone: noMS External Department UnsolicitedStart: 07-05-2024 End: 91-78-1552oyydwfxozxCDGXB FAZIONot AvailableStart: 02-24-2023 End: 47-67-7030xqpvavfzbfTqhtaoy Rosy Other [employer] Other Start: 57-90-6731Camuhxmxl for general adult medical examination without abnormal findingsAreliw RosyHU [facility] Family [facility] Julio Start: 05-14-6986Pbyjgfvj preventive med est patient 18-39 yrsMattsyedw RosyHU [facility] Family Medicine [place]Start: 05-06-2022 End: 79-10-6760bweihnobxvBhdgejn Rosy Other [place] [employer] Other Start: 37-83-2431Pfwepb outpatient visit 15 minutes Jenn GallegosSt. Joseph's HospitalyStart: 03-10-2022 End: 33-21-6588eoixgaaxdoQCLCKTE CASEYMERFacility:O8Vzkfe: 02-11-2022 End: 14-05-7391qzziinpsawVduabou Binks Other [facility] CenterSynapCell Other Start: 28-00-3331Senlsuwlk for general adult medical examination without abnormal findingsAurora Health Care Health Centereun EstradaMedfield State Hospital Julio Start: 32-27-7893Suogruub preventive med est patient 18-39 yrsRicheun EstradaHU [facility] Family [facility] SandbradenyStart: 12-10-2021 End: 52-17-1585wvpvpyikvuIPEINHF CASEYMERFacility:H6Vnlyg: 11-03-2021 End: 36-09-5444Ktndhesgbp and management of inpatientMATTHEW CASEYMERFacility:H1 Start: 89-11-9274Zijufvseo for preprocedural laboratory examinationDR ARELIS JOHNATHANSt. Charles Hospitaltart: 10-31-2021 End: 91-53-7429cusshudedsHKWQDDO ROSYFacility:L4Exhiz: 10-31-2021 End: 80-38-7422Vxlmrsnka for preprocedural laboratory examinationMAPENNY GALLEGOS Facility:O8Xnpbj: 10-14-2021 End: 17-25-5637rvrhqzsvtcGLIVGMU WIDMERFacility:S1Jmtsj: 08-28-2021 End: 93-00-6204hxcvefzfotUKTUNYU WIDMERFacility:X2Oxqkk: 08-18-2021 End: 25-65-0968jsmioranxkUE ARELIS FAZIOFacility:I6Vlpfx: 07-30-2021 End: 71-60-9138tqpzgyjsgsWF ARELIS FAZIOFacility:U2Kzugk: 86-75-5352shkjahzfavMD ARELIS FAZIOFacility:L8Foenc: 07-14-2021 End: 79-80-9117nmxnwjwcdvOILQXTAN EBERLYFacility:X0Xtxqi: 06-18-2021 End: 15-34-2796vgweyhrqwtRECGMPF WIDMERFacility:I9Ngvwx: 05-29-2021 End: 70-42-3108jqbwvxczieKJDMEIK WIDMERFacility:D4Ebaup: 05-25-2021 End: 89-10-4270vrxotceslvUN ARELIS FAZIOFacility:P3Kifrz: 04-27-2021 End: 63-30-3618xbvzsjguwpEDJKTXP WIDMERFacility:W4Nmwsn: 03-27-2021 End: 21-62-9605xiduepvrcuJT ARELIS FAZIOFacility:E5Tlixx: 02-11-2021 End: 48-54-1196hcfpsumpmoUyucury Rosy Other [place] [employer] Other Start: 77-33-6295Uafznrfvv for general adult medical examination without abnormal findingsDoctors Hospital [facility] [place] Start: 12-62-6463Wmxcxjoh preventive med est patient 18-39 yrsMattProvidence Health Medicine [facility] MonroeyStart: 31-65-0748Lrjnvfpqa encounterMattsunny [facility] MantecayStart: 01-03-2018 End: 88-93-2485Sezyald encounter procedureGosia GarciasFacility:[facility] Procedures DateProcedureProcedure DetailPerforming ClinicianStart: 61-20-7214Juptf dip stick/tablet rgnt non-auto w/o micrscpAmy William ZHU Work Phone: Start: 78-99-8330Zvcye dip stick/tablet rgnt non-auto w/o micrscpCorey Mary Lou DO Work Phone: Start: 75-52-5309Ddssc dip stick/tablet rgnt non-auto w/o micrscpKristina Robin KENO WRITER / RUNNER Work Phone: Start: 63-33-2882LGZ CBC WITH AUTO DIFFKristina Robin KENO WRITER / RUNNER Work Phone: Start: 22-09-0467Wguds dip stick/tablet rgnt non-auto w/o micrscpCorey Mary Lou DO Work Phone: Start: 53-77-4403Vmkcr dip stick/tablet rgnt non-auto w/o micrscpAmy William ZHU Work Phone: Start: 08-21-8760HBZ CBC WITH AUTO DIFFCorey Mary Lou DO Work Phone: Start: 32-53-8525Indwp dip stick/tablet rgnt non-auto w/o micrscpCorey Mary Lou DO Work Phone: Start: 59-45-6038CHQLKJMON VAGINITIS (HTRX)Cindy ZHU Work Phone: Start: 26-68-3112Qctmx dip stick/tablet rgnt non-auto w/o micrscpAapolinar ZHU Work Phone: Start: 75-71-9153WQZ,APTIMA HPV,AGE GDLNCindy ZHU Work Phone: Start: 45-33-5161Zzqzijacwag observation [Identifier] in Cervix by Cyto stainCorey Mary Lou DO Work Phone: Start: 41-40-8796Jjwsl dip stick/tablet rgnt non-auto w/o micrscpCorey Mary Lou DO Work Phone: Start: 91-91-1522FEN CBC WITH AUTO DIFFCorey [employer] DO Work Phone: Start: 42-21-8929LKQ TESTCorey [employer] DO Work Phone: Start: 50-61-4193Nukeibljpim observation [Identifier] in Cervix by Cyto stainCorey [employer] DO Work Phone: Start: 32-38-0776Zwbwzhnsrx of Products of Conception, Low Cervical, Open ApproachMATTHEW ROSY Plan of Treatment DateCare ActivityDetailAuthorStart: 80-71-1648Mdaabsdgj for malignant neoplasm of cervixNOMS HealthcareStart: 80-37-3868Xpzclbhzi for malignant neoplasm of cervixNOMS HealthcareStart: 12-26-2024 End: 79-98-3668Raaptpc encounter /12/2025 3:00 PM EST Routine [facility] [address] [place], [id number] Arelis Barreto, DO [address] [place] [address] [facility]BGYNStart: 12-17-2024 End: 57-43-6619Gtyghoi encounter procedureNOMS [facility] OBGYNComment on above: ArrivedStart: 11-20-2024 End: 08-83-8266Xgiofvz encounter procedureNOMS [place] OBGYNComment on above: ArrivedStart: 11-20-2024 End: 52-99-8757PZ for pregnancyUS OB follow up transabdominal approach Imaging Routine size inconsistent with dates ([facility]) Expected: 11/20/2024, Expires: 03/23/2025[facility] Work Phone: comment on above:Expected: 11/20/2024, Expires: 03/23/2025Start: 11-05-2024 End: 74-78-4204Btnlfjj encounter procedureNOMS Ancelmo OBGYNComment on above: ArrivedStart: 10-24-2024 End: 22-78-8047Lwkcuas encounter procedureNO Ancelmo OBGYNComment on above: ArrivedStart: 95-64-2387KLBDG-19 Vaccine ( season)COVID-19 Vaccine ( season)[facility] HealthcareStart: 99-60-4611Ypjaleixj vaccinationNOMS HealthcareStart: 09-26-2024 End: 48-26-2407Olcwdmm encounter procedureNOMS BCP OBComment on above:Arrived Start: 09-26-2024 End: 85-83-3097JWV panel - Blood by Automated countCBC Lab Routine Diabetes mellitus screening Expected: 09/26/2024 (Approximate), Expires: 09/26/2025[facility] Work Phone: comment on above:Expected: 09/26/2024 (Approximate), Expires: 09/26/2025Start: 09-26-2024 End: 58-32-4606Nzbwrfaagqj of glucose 1 hour after glucose challenge for glucose tolerance testGlucose tolerance, 1 hour Lab Routine Diabetes mellitus screening Expected: 09/26/2024 (Approximate), Expires: 09/26/2025NOW[facility] HealthcareComment on above:Expected: 09/26/2024 (Approximate), Expires: 09/26/2025Start: 09-13-2024 End: 52-90-3539Efwhuvunjyed / ancillary services zxwktovxrh75/31/2025 2:30 PM EDT Ancillary Procedure [facility] [address] [place] [address] [facility] OBStart: 08-29-2024 End: 20-20-5228Wwdzwll encounter ijblwncve01/16/2025 3:30 PM EDT Routine [facility] [address] [place] [address] Cindy Thomas PA [address] [place] [address] ArrivedNOMS BCP OBComment on above: ArrivedStart: 08-29-2024 End: 35-03-6918Wmqyc fetoprotein, maternalAlpha fetoprotein, maternal Lab Routine Need for maternal serum alpha-protein (MSAFP) screening ([facility]) Expected: 08/29/2024 (Approximate), Expires: 09/29/2024[facility] HealthcareComment on above:Expected: 08/29/2024 (Approximate), Expires: 09/29/2024Start: 08-29-2024 End: 22-34-2170DG for pregnancyUS OB 14+ weeks anatomy scan Imaging Routine Screening, , for anatomic survey ([facility]) Expected: 08/29/2024, Expires: 11/29/2024[facility] HealthcareComment on above:Expected: 08/29/2024, Expires: 11/29/2024Start: 08-02-2024 End: 44-92-1592Dhuznck encounter procedureNOMS BCP OBComment on above:Arrived Start: 21-37-2139Eagmgpfui for malignant neoplasm of cervixHPV/CotestNOMS HealthcareCBC W Auto Differential panel - BloodCBC and differential Lab Routine Anemia, unspecified type Ordered: 11/05/2024[facility] Healthcare Work Phone: comment on above:Ordered: 11/05/2024HLAMYDIA TRACHOMATIS (GENITO/STI)CHLAMYDIA TRACHOMATIS (GENITO/STI) Lab Routine Exposure to STD Ordered: 08/29/2024[facility] HealthcareComment on above:Ordered: 08/29/2024 Cytology Cervical or vaginal smear or scraping studyPap Smear Pathology and Cytology Routine Well woman exam with routine gynecological exam Ordered: [facility] Healthcare Work Phone: comment on above:Ordered: 08/29/2024Human papilloma virus DNA [Presence] in Unspecified specimen by Probe with amplificationHPV DNA probe, amplified Microbiology Routine Well woman exam with routine gynecological exam Ordered: 08/29/2024[facility] HealthcareComment on above:Ordered: 08/29/2024 Neisseria gonorrhoeae DNA [Presence] in Unspecified specimen by THERON with probe detectionNeisseria gonorrhea DNA probe, direct Lab Routine Exposure to STD Ordered: 08/29/2024[facility] HealthcareComment on above:Ordered: 08/29/2024 SURESWAB(R) ADVANCED VAGINITIS PLUS, TMASURESWAB(R) ADVANCED VAGINITIS PLUS, TMA Pathology and Cytology Routine Exposure to STD Ordered: 08/29/2024[facility] HealthcareComment on above:Ordered: 08/29/2024 Immunizations Immunization DateImmunizationNotesCare StfugqfiMdpyujqa41-93-5629JLPUZ-29 Vaccine Pfizer - Documentation Purposes OnlyMatthew Rosy Other noMember Savings Program Other 02-296250-28-4593UIUCB-21 Vaccine Pfizer - Documentation Purposes OnlyMatthew Rosy Other [employer] Other 10-14-758168-94-3967mlzmfjysi, injectable, quadrivalent, preservative freeMatthew Rosy Other noMember Savings Program Other 10-14-324784-87-0065laddilpqk virus vaccine, unspecified formulationArelis Barreto DO Work Phone: [facility] Healthcare Payers DatePayer CategoryPayerPolicy [id number] [id number] 2023Medicaid (Managed Care)[place] [employer] Member Subscriber Plan / Payer (Effective 2022-Present) Name: Arti Mckeon Relation to Subscriber: Self Name: Arti Mckeon Payer ID: [id number] (NAIC) Type: Not on file Address: [address] [id number] 02-62-5680[facility] [id number]-itu27-88-4097Vonyrou [id number] 2.0.1.430495.3.57[id number] 2.0.1.871648.3.57[id number] 2.0.1.110316.3.57[id number] 2..1.046944.3.579.2.12308-60-7468Lhchbii7022693 2.0.1.557845.3.579.2.[id number] 2..1.275598.3.579.2.71602-11-0997Rnlltyh1429085 2.0.1.513032.3.579.2.85158-09-2113Peevgia1249289 2.0.1.368085.3.579.2.80752-14-5761Peglznh8961347 2.0.1.189882.3.579.2.20254-92-8963Zkqnvzu7708460 2.0.1.511440.3.579.2.94385-41-0142Zbzxbcj3993807 2.0.1.828328.3.579.2.15579-87-1924Nuybvts1241562 2.840.1.029794.3.579.2.39777-94-4013Iwijesv9986705 2.840.1.020135.3.579.2.48930-81-5697Jdlztvc0457232 2.840.1.768591.3.579.2.41053-57-3922Cuxtckf3413834 2.840.1.419655.3.579.2.08165-42-2667Wuniknw29096715 2.840.1.893206.3.579.2.431900-98-5910Lmeuyve39029448 2.0.1.674468.3.579.2.[id number] 2..1.579188.3.579.2.796403-37-3837Qvylaju33651681 2..1.926735.3.579.2.054566-58-8436Eaqxgor76701524 2.0.1.363890.3.579.2.735997-26-0666Qrnzyjc32932152 2.0.1.133959.3.579.2.828743-68-4379Qtehbpb82366532 2..1.631537.3.579.2.451298-56-0918Dgmtvuz69420472 2..1.672313.3.579.2.550488-88-3339Xjdeavc87856647 2..1.302529.3.579.2.736938-13-2335Scpxkun15227740 2.0.1.215078.3.579.2.354607-96-3428Ealljip0603914 2.0.1.540956.3.579.2.998011-62-2388Iysouno6603676 2.0.1.450511.3.579.2.226537-30-3363PhumCarrie Tingley [id number] 2..840.4.404432.467219 [id number] [id number] Eghnikm50620 2.16.840.1.043579.3.579.2.531 Social History DateTypeDetailFacilityUnknown if ever smokedHenderson Mobivery Other Sex Assigned At BirthNosaint mary[facility] Mobivery Other Tobacco smoking status NHISTobacco smoking consumption unknownCenterPointe HospitalStart: 73-23-7123PwbqdmjboDJBY HealthcareStart: 07-02-1188Pmx assigned at birthNot on fileCenterPointe HospitalStart: 97-82-4441Syl FemaleCenterPointe Hospital Clinical Notes 02-11-2021 to 12-17-2024 Note Date & XhxzSwjsQurvotxx27-72-8537 History of Present illness Narrative* MARKO Phelps - 12/17/2024 1:50 PM EST [...] Vitals: Estimated body mass index is 29.56 kg/m as calculated from the following: Height as of 07/14/23: 5' 8 . Weight as of 12/04/24: 194 lb 6.4 oz. BP: Patient's last menstrual period was 05/08/2024. Assessment/Plan ICD-10-CM 1. Third trimester ([facility]) Z34.93 2. 34 weeks gestation of ([facility]) Z3A.34 Return OB: Patient presents today [...] behalf of: MARKO Phelps documented in this encounterCenterPointe HospitalGafeuokcgq74-14-2081 History of Present illness Narrative* Maribell Khan, VALET MANAGER - 12/04/2024 2:10 PM EDT Reason for Appointment: Patient ID: [...] nursing note reviewed. Exam conducted with a payroll representative present. Vitals: Estimated body mass index is 29.56 kg/m as calculated from the following: Height as of 07/14/23: 5' 8 . Weight as of this encounter: 194 lb 6.4 oz. BP: 120/60 Patient's last menstrual period was 05/08/2024. Assessment/Plan ICD-10-CM 1. 32 weeks gestation of ([facility]) Z3A.32 POCT urinalysis dipstick manually resulted 2. Third trimester ([facility]) Z34.93 POCT urinalysis dipstick manually resulted 3. Anemia, unspecified type D64.9 Return OB: Patient presents today for a routine obstetrics appointment. Patient is currently 32w4d . Patient states she is doing well [...] week for routine OB appointment. Documented by Maribell Khan LPN on behalf of: Arelis Barreto DO documented in this encounterCenterPointe [id number] History of Present illness Narrative* Patricia Kelly NP - 11/20/2024 2:30 PM [...] nursing note reviewed. Exam conducted with a payroll representative present. Vitals: Estimated body mass index is 29.08 kg/m as calculated from the following: Height as of 07/14/23: 5' 8 . Weight as of this encounter: 191 lb 4 oz. BP: 122/60 Patient's last menstrual period was 05/08/2024. ASSESSMENT & PLAN ICD-10-CM 1. size inconsistent with dates ([facility]) O26.849 2. Third trimester ([facility]) Z34.93 POCT urinalysis dipstick manually resulted 3. 30 weeks gestation of ([facility]) Z3A.30 Return OB: Patient presents today [...] of: Patricia Kelly NP documented in this encounterCenterPointe [id number] History of Present illness Narrative* Patricia Kelly NP - 11/05/2024 10:00 AM EDT Reason for Appointment: Patient ID: Arti [...] D64.9 CBC and differential 2. Third trimester ([facility]) Z34.93 POCT urinalysis dipstick manually resulted 3. 28 weeks gestation of ([facility]) Z3A.28 Return OB: Patient presents today [...] of: Arelis Barreto DO documented in this encounterCenterPointe [id number] History of Present illness Narrative* MARKO Phelps [...] PLAN ICD-10-CM 1. 26 weeks gestation of ([facility]) Z3A.26 POCT urinalysis dipstick manually resulted 2. Second trimester ([facility]) Z34.92 POCT urinalysis dipstick manually resulted 3. Anemia during in second trimester ([facility]) O99.012 Return OB: Patient presents today [...] week for routine OB appointment. Documented by MAROK Phelps on behalf of: MARKO Phelps documented in this encounterCenterPointe [id number] History of Present illness Narrative* Maribell Khan LPN - 09/26/2024 2:50 PM EDT Reason for [...] nursing note reviewed. Exam conducted with a payroll representative present. Vitals: Estimated body mass index is 28.28 kg/m as calculated from the following: Height as of 07/14/23: 5' 8 . Weight as of this encounter: 186 lb. BP: 118/70 Patient's last menstrual period was 05/08/2024. ASSESSMENT & PLAN ICD-10-CM 1. Diabetes mellitus screening Z13.1 CBC Glucose tolerance, 1 hour CBC Glucose tolerance, 1 hour 2. Second trimester ([facility]) Z34.92 POCT urinalysis dipstick manually resulted 3. 22 weeks gestation of ([facility]) Z3A.22 Patient presents today for a routine obstetrics appointment. Patient is currently 22w5d with a Estimated Date of Delivery: 01/25/25. Pt given glucola and cbc orders to have obtained. Pt to return in 4 weeks Documented by Maribell Khan LPN on behalf of: Arelis Barreto DO documented in this encounterCenterPointe [id number] History of Present illness Narrative* MARKO Phelps [...] nursing note reviewed. Exam conducted with a payroll representative present. Vitals: Estimated body mass index is 27.06 kg/m as calculated from the following: Height as of 07/14/23: 5' 8 . Weight as of this encounter: 178 lb. BP: 122/70 Patient's last menstrual period was 05/08/2024. ASSESSMENT & PLAN ICD-10-CM 1. Well woman exam with routine gynecological exam Z01.419 Pap Smear HPV DNA probe, amplified 2. Screening, , for anatomic survey ([facility]) Z36.89 US OB 14+ weeks anatomy scan 3. Exposure to STD Z20.2 SURESWAB(R) ADVANCED VAGINITIS PLUS, TMA CHLAMYDIA TRACHOMATIS (GENITO/STI) Neisseria gonorrhea DNA probe, direct 4. Need for maternal serum alpha-protein (MSAFP) screening ([facility]) Z36.1 Alpha fetoprotein, maternal Alpha fetoprotein, maternal 5. Second trimester ([facility]) Z34.92 6. 18 weeks gestation of ([facility]) Z3A.18 POCT urinalysis dipstick manually resulted [...] behalf of: MARKO Phelps documented in this encounterCenterPointe HospitalRdlguuxtnq76-22-9794 History of Present illness Narrative* MAKRO Phelps - 08/02/2024 9:20 AM EDT Reason for Appointment: Patient ID: Arti [...] ASSESSMENT & PLAN ICD-10-CM 1. Second trimester ([facility]) Z34.92 POCT urinalysis dipstick manually resulted 2. 14 weeks gestation of ([facility]) Z3A.14 Return OB: Patient presents today for a routine obstetrics appointment. Patient is currently 14w6d . Patient states she is doing well but has complaints of being tired due to current . Patient has verbalizes frequent movement. Orders Placed This Encounter Procedures POCT urinalysis dipstick manually resulted Follow Up: Patient is to return to office in 4week for routine OB appointment. Documented by MRAKO Phelps on behalf of: Arelis Barreto DO documented in this encounterCenterPointe [id number] Evaluation note* Encounter Date Diagnosis Assessment Notes [...] persistent asthma without complication (ICD-10 - J45.40) [facility] Other 03-23-2023 Evaluation note* Encounter Date Diagnosis [...] would consider doing a tendon sheath injection. [facility] Other 12-29-2022 Evaluation note* Encounter Date Diagnosis [...] acute issue arises. Jan,nxiety (ICD-10 - F41.9) [facility] Other 09-20-2022 NoteOPERATIVE NOTE OPERATION DATE: 11/03/2021 PROCEDURE: Repeat low transverse section. PREOPERATIVE DIAGNOSIS: 1. Intrauterine 39 weeks. 2. Previous . POSTOPERATIVE DIAGNOSIS: 1. Intrauterine 39 weeks. 2. Previous . ANESTHESIA: Spinal with Duramorph. SURGEON: Arelis Barreto D.O. TRAILER STEERER: JESSE Cruz URINE OUTPUT: Yellow and clear. [...] to the Recovery Room in stable condition.[facility] [id number] Note DISCHARGE SUMMARY DISCHARGE DATE: 11/13/2021 PRIMARY [...] pain free and no longer on narcotics.[facility] [id number] Evaluation note * Encounter Date Diagnosis Assessment [...] persistent asthma without complication (ICD-10 - J45.40) [facility] [employer] Other Evaluation noteNo InformationNortBryn Mawr Rehabilitation Hospital [employer] Other Evaluation note* Diagnosis Second trimester ([facility]) state, incidental 14 weeks gestation of ([facility]) [facility] Diagnosis Well woman exam with routine gynecological exam Routine gynecological examination Screening, , for anatomic survey ([facility]) Encounter for anatomic survey Exposure to STD Need for maternal serum alpha-protein (MSAFP) screening ([facility]) Second trimester ([facility]) state, incidental 18 weeks gestation of ([facility]) documented [facility]* Diagnosis Diabetes mellitus screening Screening for diabetes mellitus Second trimester ([facility]) state, incidental 22 weeks gestation of ([facility]) documented [facility]* Diagnosis 26 weeks gestation of ([facility]) Second trimester ([facility]) state, incidental Anemia during in second trimester ([facility]) documented [facility]* Diagnosis Anemia, unspecified type- Primary Third trimester ([facility]) state, incidental 28 weeks gestation of ([facility]) documented [facility]* Diagnosis size inconsistent with dates ([facility])- Primary Third trimester ([facility]) state, incidental 30 weeks gestation of ([facility]) documented [facility]* Diagnosis 32 weeks gestation of ([facility]) Third trimester ([facility]) state, incidental Anemia, unspecified type documented [facility]* Diagnosis Third trimester ([facility]) state, incidental 34 weeks gestation of ([facility]) documented in this encounter [facility] HealthcareHistory general Narrative - Reported* Type Description Date Medical History stomach issues Medical HistoryAsthmaMedical Historylow ironSurgical Historystomach surgery Surgical HistoryC sectionHospitalization Historychildbirths [facility] [employer] Other Summary Purpose Family History No Family History Records FoundNo Family History Records FoundNo Family History Records Found Advance Directives No Advanced Directives Records FoundNo Advanced Directives Records FoundNo Advanced Directives Records Found Additional Source Comments INFORMATION SOURCE (unrecogn ized section and content) DATE CREATED AUTHOR 03/20/2018 [facility] DATE CREATED AUTHOR AUTHOR'S ORGANIZ ATION 03/16/2022 [facility] DATE CREATED AUTHOR AUTHOR'S ORGANIZ ATION 12/18/2024 [facility] EPIC REASON FOR [...] BE BASED ON THE PRIMARY CLINICAL RECORDS. [facility]. provides no warranty or guarantee of the accuracy or completeness of information in this document.
[2024-12-20 07:50] VITALS: BP 112/65; PULSE 87
[2024-12-20 08:10] VITALS: BP 102/57; PULSE 88
[2024-12-20 08:11] LABS: Glucose Urine UA NEGATIVE (NEGATIVE)
== END 2024-12-20 08:25 | disposition home or self-care (01) ==
LOC: FBC 07:36
PROVIDERS: Admitting Provider Obstetrics & Gynecology; Visit Provider Obstetrics & Gynecology
DX: O99.891 Other specified diseases and conditions complicating pregnancy (principal); R42 Dizziness and giddiness; Z3A.34 34 weeks gestation of pregnancy
CPT/HCPCS: 81003; G0378; G0379

== ENCOUNTER 2024-12-26 19:44 | Outpatient (REF) | payer BC, OTHER, SELFPAY ==
--- OUTSIDE RECORDS SUMMARY | 2023-12-20 03:45 | XMS_ITS ---
Author Organization [facility] vices Address [address] [place] [place] [id number] Care Team Providers Care Electroplater Name Role Phone Alma Jolley Unavailable [phone] REASON FOR VISIT Recall (A) 33 Social History Sex Assigned At : Social History Observation Description Sex Assigned At Female Encounters Encounter Location Date Provider Diagnosis Dental Main [address] [place], [place] [id number] 12/20/2023 Alma Jolley Plan Of Treatment No Information Progress Notes * Arti MCKEON NDOB:[birth year] (34 yo F)Acc No.[id number]:12/20/2023 Patient:?Arti MCKEON :?Alma Jolley DDSDOB:1990???Age:33 Y ???Sex:FemaleDate:12/20/2023hone:[phone]:[address] [place], [place] [address] Subjective: * Chief Complaints: * 1 . Recall (A) 33. * Medical History: Objective: * Vitals: Assessment: Plan: * Treatment: * Billing Information: * Visit Code: * Procedure Codes: * Electronic signature of Alma Jolley DDS on 12/26/2024 at 12:51 PM EST Sign off status: Pending * Provider: Roxana Jolley DDS Date: 02/18/2023 Generated for Printing/Faxing/eTransmitting on:?12/26/2024 12:51 PM EST
--- OUTSIDE RECORDS SUMMARY | 2024-11-20 13:30 | XMS_ITS | Encounter Summary ---
Author Organization [facility] Address [address] [facility] [place] [address] Care Team Providers Care Temperature Control Inspector Name Role Phone Unavailable Primary Care Provider Unavailabl e Reason for Visit * ReasonCommentsRoutine Visit Encounter Details DateTypeDepartmentCare Team (Latest Contact Info)Ydpkegxvkoc98/07/2025 2:30 PM EDTRoutine MOI Ag OBGYN [address] [place] [address] Patricia Kelly, YOLA [address] [place] [address] size inconsistent with dates ([facility]) (Primary Dx); Third trimester ([facility]); 30 weeks gestation of ([facility]) Social History Tobacco UseTypesPacks/DayYears UsedDateSmoking Tobacco: Never Assessed Estimated Date of AdmsgmnwVyzfhmshSnx73/12/2025Based on UltrasoundSex and Gender InformationValueDate RecordedSex Assigned at BirthNot on fileLegal SexFemale 04/28/2022 6:54 PM EDTGender IdentityNot on fileSexual OrientationNot on file documented as of this encounter Last Filed Vital Signs Vital SignReadingTime TakenCommentsBlood Ddwbycqj123/6011/20/2024 2:32 PM EDT Pulse--Temperature--Respiratory Rate--Oxygen Saturation--Inhaled Oxygen Concentration--Kzgcrh88.8 kg (191 lb 4 oz)11/20/2024 2:32 PM [...] nursing note reviewed. Exam conducted with a biodiesel engine specialist present. Vitals: Estimated body mass index is 29.08 kg/m?? as calculated from the following: Height as of 07/14/23: 5' 8 . Weight as of this encounter: 191 lb 4 oz. BP: 122/60 Patient's last menstrual period was 05/08/2024. ASSESSMENT & PLAN ICD-10-CM 1. size inconsistent with dates ([facility]) O26.849 2. Third trimester ([facility]) Z34.93 POCT urinalysis dipstick manually resulted 3. 30 weeks gestation of ([facility] Z3A.30 Return OB: Patient presents today for [...] Plan of Treatment DateTypeDepartmentCare Team (Latest Contact Info)Rvquicrxwjb15/17/2025 9:50 AM ESTRoutine [facility] [address] [address] Patricia Kelly NP [address] [place] [address] documented as of this encounter Procedures Procedure NamePriorityDate/TimeAssociated DiagnosisCommentsPOCT URINALYSIS MJKEIDTSKlmlyxr80/07/2025 2:37 PM EDT Third trimester ([facility]) documented in this encounter Results * US [...] 2025). TRANSCRIBED BY: ELECTRONICALLY SIGNED BY: Gerardo oCsme MD Authorizing ProviderResult TypeResult StatusKrbulmaro Robin NPIMG OB US PROCEDURESFinal Result * (ABNORMAL) [...] Location / LateralityCollection Method / VolumeCollection TimeReceived OsfeCmscz12/07/2025 2:37 PM EDT Narrative Authorizing ProviderResult TypeResult StatusPatricia Kelly NPPOINT OF CARE TEST ENTER/EDIT ORDERABLESFinal Result documented in this encounter Visit Diagnoses Diagnosis size inconsistent with dates ([facility])- Primary Third trimester ([facility]) state, incidental 30 weeks gestation of ([facility]) size inconsistent with dates ([facility]) documented in this encounter
--- OUTSIDE RECORDS SUMMARY | 2024-12-17 13:50 | XMS_ITS | Encounter Summary ---
Author Organization [facility] Address [address] [facility] [place] [address] Care Team Providers Care Spring Forger Name Role Phone Unavailable Primary Care Provider Unavailabl e Reason for Visit * ReasonCommentsRoutine Visit Encounter Details DateTypeDepartmentCare Team (Latest Contact Info)Lwrqkdbojwt03/03/2025 1:50 PM ESTRoutine NOMSumaya Ancelmo OBGYN [address] [place] [address] Cindy Silva PA [address] [place], [facility] Third trimester ([facility]); 34 weeks gestation of ([facility]) Social History Tobacco UseTypesPacks/DayYears UsedDateSmoking Tobacco: Never Assessed Estimated Date of YsiynvzmPkzogztpEwr59/12/2025Based on UltrasoundSex and Gender InformationValueDate RecordedSex Assigned at BirthNot on fileLegal SexFemale 04/28/2022 6:54 PM EDTGender IdentityNot on fileSexual OrientationNot on file documented as of this encounter Last Filed Vital Signs Vital SignReadingTime TakenCommentsBlood Kophwchd935/6012/17/2024 2:04 PM EST Pulse--Temperature--Respiratory Rate--Oxygen Saturation--Inhaled Oxygen Concentration--Uajtqg15.4 kg (197 lb)12/17/2024 2:04 PM ESTHeight--Body Mass Index29.9505 11:01 AM EDTdocumented in this encounter Progress Notes * MARKO Phelps - 12/17/2024 1:50 PM EST Reason for Appointment: Patient ID: Arti Mckeon [...] (Miralax) 17 g packet Take by mouth ProFe 391.3 (180 Fe) MG capsule 1 capsule, Daily ALLERGIES Allergies Allergen Reactions Penicillin G Other Reaction(s): Unknown Sulfa Antibiotics Hives Other Reaction(s): Unknown Penicillins Rash Other Reaction(s): Unknown PROBLEMS Active Ambulatory Problems Diagnosis Date Noted [...] reviewed. Vitals: Estimated body mass index is 29.56 kg/m?? as calculated from the following: Height as of 07/14/23: 5' 8 . Weight as of 12/04/24: 194 lb 6.4 oz. BP: Patient's last menstrual period was 05/08/2024. Assessment/Plan ICD-10-CM 1. Third trimester ([facility]) Z34.93 2. 34 weeks gestation of ([facility]) Z3A.34 Return OB: Patient presents today for a routine obstetrics appointment. Patient is currently 34w3d . Patient states she is doing well but has complaints of being tired due to current . Patient has verbalizes frequent movement. labor precautions was discussed/given and patient was instructed to perform kick counts three times a day. No orders of the defined types were placed in this encounter. Follow Up: Patient is to return to office in 2 week for routine OB appointment. Documented by Jannie Lopez MA on behalf of: MARKO Phelps documented in this encounter Plan of Treatment DateTypeDepartmentCare Team (Latest Contact Info)Kvdtxabqeqh30/17/2025 9:50 AM ESTRoutine NOMS Ancelmo [facility] [address] [place] [address] Patricia Kelly, YOLA [address] [place] [address] documented as of this encounter Procedures Procedure NamePriorityDate/TimeAssociated DiagnosisCommentsPOCT URINALYSIS IAEVARVAAqlrmcv38/03/2025 2:04 PM EST Third trimester ([facility]) documented in this encounter Results * (ABNORMAL) POCT urinalysis dipstick manually resulted (12/17/2024 2:04 PM EST) ComponentValueRef RangeTest MethodAnalysis TimePerformed AtPathologist SignatureColor, UAYellowClarity, UACloudyGlucose, UANegativeNegative - 1999(110) ++++ mg/dLBilirubin, UANegativeNegative - 4(70) +++ mg/dLKetones, UA NegativeNegative - 160(16) ++++ mg/dLSpec Grav, UA1.0251 - 1.03Blood, UA NegativeNegative - 50 Guy/mcLpH, UA8.05 - 9Protein, UA1+Negative - 2000(20) ++++ mg/dLUrobilinogen, UA1.00.2 - 12 mg/dLLeukocytes, UANegativeNegative - 500+++ Corona/mcLNitrite, UANegativeNegative - PositiveSpecimen (Source) Anatomical Location / LateralityCollection Method / VolumeCollection Time Received NgvkOpckt97/03/2025 2:04 PM EST Narrative Authorizing ProviderResult TypeResult StatusVal[facility] TEST ENTER/EDIT ORDERABLESFinal Result documented in this encounter Visit Diagnoses Diagnosis Third trimester ([facility]) state, incidental 34 weeks gestation of ([facility]) documented in this encounter
--- OUTSIDE RECORDS SUMMARY | 2024-12-26 15:00 | XMS_ITS | Encounter Summary ---
Author Organization [facility] Address [address] [place] [address] Care Team Providers Care Curriculum Coach Name Role Phone Unavailable Primary Care Provider Unavailabl e Reason for Visit * ReasonCommentsRoutine Visit Encounter Details DateTypeDepartmentCare Team (Latest Contact Info)Mxyxyuksdkg05/12/2025 3:00 PM ESTRoutine [facility] [address] [place] [id number] Jose Barreto DO [address] [place], [facility] Third trimester ([facility]); 35 weeks gestation of ([facility]) Social History Tobacco UseTypesPacks/DayYears UsedDateSmoking Tobacco: NeverSmokeless Tobacco: Never Tobacco Cessation:Counseling Given: Not Answered Alcohol UseStandard Drinks/WeekCommentsYes2 (1 standard drink = 0.6 oz pure alcohol)Estimated Date of PffzybhyRxixaaepHjq41/12/2025Based on UltrasoundSex and Gender InformationValueDate RecordedSex Assigned at BirthNot on fileLegal JuhVqazmw85/15/2023 6:54 PM EDTGender IdentityNot on fileSexual OrientationNot on filedocumented as of this encounter Last Filed Vital Signs Vital SignReadingTime TakenCommentsBlood Cjlyiowr392/6212/26/2024 3:29 PM EST Pulse--Temperature--Respiratory Rate--Oxygen Saturation--Inhaled Oxygen Concentration--Axukzy00.8 kg (198 lb)12/26/2024 3:29 PM ESTHeight--Body Mass Index30.11007/14/2023 11:01 AM EDTdocumented in this encounter Progress Notes * Maribell Khan, SENIOR LIVING ADVISOR - 12/26/2024 3:00 PM EST Reason for Appointment: Patient ID: [...] bilateral Social History Tobacco Use Smoking status: Never Smokeless tobacco: Never Substance Use Topics Alcohol use: Yes Alcohol/week: 2.0 standard drinks of alcohol Types: 2 Glasses of wine per week Drug use: Never FAMILY HISTORY Family History Problem Relation Name Age of Onset Other (Cerebrovascular accident) Maternal Grandfather Cancer Mother Amanda Mckeon Cancer Father Maxim Mckeon Diabetes Father Maxim Mckeon Diabetes Maternal Grandmother Tanja Nuñez Heart failure Maternal Grandmother Tanja Nuñez SURGICAL HISTORY Past Surgical History: Procedure Laterality Date ABDOMINAL SURGERY SECTION, LOW TRANSVERSE 03/02/2019 due to previous [...] appearance. She is well-developed. Genitourinary: Vulva normal. Cardiovascular: Rate and Rhythm: Normal rate and [...] nursing note reviewed. Exam conducted with a truss builder present. Vitals: Estimated body mass index is 30.11 kg/m?? as calculated from the following: Height as of 07/14/23: 5' 8 . Weight as of this encounter: 198 lb. BP: 110/62 Patient's last menstrual period was 05/08/2024. Assessment/Plan ICD-10-CM 1. Third trimester ([facility]) Z34.93 CULTURE, GROUP B STREP WITH SUSCEPTIBLITY CULTURE, GROUP B STREP WITH SUSCEPTIBLITY 2. 35 weeks gestation of ([facility]) Z3A.35 POCT urinalysis dipstick manually resulted Assessment/Plan Patient is doing well but has complaints of being tired and having maternal discomfort due to . Patient verbalized frequent movement and was instructed to perform fetalkick counts three times per day. labor precautions were given, LARC consent was signed/declined, and GBS was obtained. Cervical check was performed and patient is 0cm dilated. Orders Placed This Encounter Procedures CULTURE, GROUP B STREP WITH SUSCEPTIBLITY POCT urinalysis dipstick manually resulted Follow Up: Patient is to return to office in 1 week for routine OB appointment Documented by Maribell Khan LPN on behalf of: Jose Barreto DO documented in this encounter Plan of Treatment DateTypeDepartmentCare Team (Latest Contact Info)Wceytfavnbz03/17/2025 9:50 AM ESTRoutine [facility] [address] [place] [address] Patricia Kelly, OUTSIDE SALES ACCOUNT EXECUTIVE [address] [place] [address] NameTypePriorityAssociated DiagnosesOrder ScheduleCULTURE, GROUP B STREP WITH SUSCEPTIBLITYLabRoutine Third trimester ([facility]) Expected: 12/26/2024, Expires: 12/26/2025documented as of this encounter Procedures Procedure NamePriorityDate/TimeAssociated DiagnosisCommentsPOCT URINALYSIS QIBNWDJHVthdxaa83/12/2025 3:29 PM EST 35 weeks gestation of ([facility]) documented in this encounter Results * (ABNORMAL) POCT urinalysis dipstick manually resulted (12/26/2024 3:29 PM EST) ComponentValueRef RangeTest MethodAnalysis TimePerformed AtPathologist SignatureColor, UAYellowClarity, UAClearGlucose, UANegativeNegative - 2000(110) ++++ mg/dLBilirubin, UANegativeNegative - 4(70) +++ mg/dLKetones, UA PositiveNegative - 160(16) ++++ mg/dLSpec Grav, UA1.0101 - 1.03Blood, UA NegativeNegative - 50 Guy/mcLpH, UA6.05 - 9Protein, UATraceNegative - 2000(20) ++++ mg/dLUrobilinogen, UA1.00.2 - 12 mg/dLLeukocytes, UANegativeNegative - 500+++ Corona/mcLNitrite, UANegativeNegative - PositiveSpecimen (Source) Anatomical Location / LateralityCollection Method / VolumeCollection Time Received JjdgRacuu89/12/2025 3:29 PM EST Narrative Authorizing ProviderResult TypeResult StatusCorey Mary Lou DOPOINT OF CARE TEST ENTER/EDIT ORDERABLESFinal Result documented in this encounter Visit Diagnoses Diagnosis Third trimester ([facility]) state, incidental 35 weeks gestation of ([facility]) documented in this encounter
--- OUTSIDE RECORDS SUMMARY | 2024-12-26 19:48 | XMS_ITS | CCD ---
Author Organization [facility] CliniSynj Care Team Providers Care Department Chair Name Role Phone Gosia Garcias Primary Care Unavailable Jenn Gallegos Attending Unavailable Jenn aGllegos Unavailable JENN GALLEGOS Primary Care Unavailable MARY [...] Unavailable ROSY, JENN Primary Care Unavailable LYDIA KELLY Admitting Unavailable LYDIA KELLY Consulting Unavailable LYDIA KELLY Attending Unavailable ROSY, JENN Primary Care Unavailable ROBIN, LYDIA Admitting Unavailable ROBIN, LYDIA Consulting Unavailable ROBIN, LYDIA Attending Unavailable ROBIN, LYDIA Consulting Unavailable ROBIN, LYDIA Attending Unavailable ROSY, JENN Primary Care Unavailable ROBIN, LYDIA Admitting Unavailable MARY LOU, DR INFANTE [...] Unavailable MARY LOU, DR INFANTE Admitting Unavailable JUPITER, DR KASEY Horvath Consulting Unavailable MARY LOU, DR INFANTE Consulting Unavailable MARY LOU, DR INFANTE Attending Unavailable MARY LOU, DR INFANTE Admitting Unavailable MARY LOU, DR INFANTE Consulting Unavailable ROSY JENN Primary Care Unavailable ZIEBER, DR FRANCIA Hyde Consulting Unavailable Mike Estrada Unavailable Unavailable Primary Care Provider Unavailabl e MARY LOU, JOSE Attending Unavailable CINDY THOMAS Attending Unavailable CINDY THOMAS Referring Unavailable MARY LOU, JOSE Attending Unavailable RICARDO CINDY Attending Unavailable MARY LOU, JOSE Attending Unavailable ROBIN, LYDAI Attending Unavailable ROBIN, LYDIA Referring Unavailable MARY LOU, JOSE Attending Unavailable CINDY THOMAS Attending Unavailable Allergies Allergy ClassificationReported Allergen(s)Allergy TypeDate of OnsetReaction(s) Facility (5 sources)Sulfacetamide / SulfurDrug [facility] Other (1 source)PenicillinsDrug allergy (disorder)72-94-7689NuoUniversity [facility] (1 source)Sulfonamides (Antibiotic)Drug allergy (disorder)72-46-7343RreUniversity Hospitals [facility] Repository (20 sources)PenicillinsDrug Vzhyenhtjwv93-76-5055QlvfBTKB Healthcare (20 sources)Sulfonamides (Antibiotic)Drug Yipfajjuceq30-78-6256EpwhaHQVM Healthcare (20 sources)Penicillin GDrug Zisksuy56-35-7609MZHC Healthcare Medications Current Medications MedicationDrug Class(es)DatesSig (Normalized)Sig (Original)[id number] 200 actuat albuterol 0.09 mg/actuat metered dose [...] tablet by mouth Daily Activepolyethylene glycol 3350 30324 mg powder for oral solution (20 sources)Osmotic Laxativepolyethylene glycol, PEG, 3350 (Miralax) 17 g packet Take by mouth Activepolysaccharide iron complex 391 mg oral capsule (13 sources)Start: 10-09-2024 End: 47-52-1367eoii 1 capsule by mouth once dailyProFe 391.3 [...] propionate 0.0005 mg/mg topical ointment (4 sources)CorticosteroidStart: 38-02-5257Udjrfitrxv Propionate 0.05 % 1 application Externally Twice a day for 10 day(s) PRN Feb, Not-Taking FLUoxetine 20 mg oral tablet (4 sources)Serotonin Reuptake Inhibitortake 1 tablet by mouth every twenty-four hoursFLUoxetine HCl 20 MG 1 tablet Orally Once a day for 90 day(s) Not-Taking naproxen 500 mg oral tablet (2 sources)Nonsteroidal Anti-inflammatory DrugStart: 21-54-6633hawp 1 tablet by mouth every twelve hours at mealtime as neededNaproxen 500 MG 1 tablet with food or milk as needed Orally every 12 hrs for 20 days Apr, Not-Taking/PRN Problems Active Problems Problem ClassificationProblemDateDocumented DateEpisodic/ChronicAnxiety disorders (10 sources)Mixed anxiety and depressive disorder; Translations: [Other specified anxiety disorders]Onset: 02-11-2021 Resolved: 86-64-1886XckymwbAdxfxx (9 sources)Uncomplicated moderate persistent asthma; Translations: [Moderate persistent asthma, uncomplicated]Onset: 02-11-2021 Resolved: 75-91-1728ShyahaoJwiypegnff and other anemia (4 sources)Anemia; Translations: [Anemia, unspecified]51-34-7953YkabfarrTrdzjrjd mellitus without complication (1 source)Diabetes mellitus without complication; Translations: [Z13.1 - Encounter for screening for diabetesmellitus]Onset: 14-83-8903Jhsazykd; including migraine (5 sources)Chronic tension-type headache; Translations: [Chronic tension-type headache, not intractable]ChronicImmunizations and screening for infectious disease (8 sources)Encounter for screening for human papillomavirus (HPV); Translations: [Encounter for screening for infections with a predominantly sexual mode of transmission]Onset: 25-14-6233QisvnxwdFsgzrizsr disorders (4 sources)Irregular menstruation, unspecified; Translations: [IRREGULAR MENSTRUATION UNSPECIFIED]Onset: 00-49-0524BwoccrmDdwnn complications of ; puerperium affecting management of mother (1 source)Anemia complicating childbirth; Translations: [ANEMIA COMPLICATING CHILDBIRTH]Onset: 63-56-4823NxzrbsbWolzr complications of ; puerperium affecting management of mother (1 source)Obesity complicating childbirth; Translations: [OBESITY COMPLICATING CHILDBIRTH]Onset: 07-63-0002XvavwxeBmncu complications of (2 sources)Anemia of ; Translations: [Anemia complicating , second trimester]34-89-1466IkfwnaiHlsnp complications of (2 sources) size does not accord with dates; Translations: [Uterine size- date discrepancy, unspecified trimester]18-60-0686GtcdypuhTwznk connective tissue disease (1 source)Other enthesopathies, not elsewhere classifiedEpisodicOther nutritional; endocrine; and metabolic disorders (1 source)Obesity, unspecified; Translations: [OBESITY UNSPECIFIED]Onset: 06-84-5367XrfvqxpEguqo and delivery including normal (18 sources)Single live ; Translations: [Encounter for supervision of normal , unspecified, firsttrimester]Onset: [id number] EpisodicOther screening for suspected conditions (not mental disorders or infectious disease) (19 sources)Encounter for screening for malignant neoplasm of cervix; Translations: [Encounter for screening for Streptococcus B]Onset: 40-28-5351DlpyykfvKbqro upper respiratory infections (4 sources)Acute frontal sinusitis; Translations: [Acute frontal sinusitis, unspecified]EpisodicResidual codes; unclassified (2 sources)Gestation period, 14 weeks; Translations: [14 weeks gestation of ]55-82-4256XkbryarvBmmzouws codes; unclassified (2 sources)Gestation period, 18 weeks; Translations: [18 weeks gestation of ]69-69-3074OyqlhmvcJuedghmg codes; unclassified (2 sources)Gestation period, 22 weeks; Translations: [22 weeks gestation of ]05-17-8305XgnnmtszRweiwxgh codes; unclassified (2 sources)Gestation period, 26 weeks; Translations: [26 weeks gestation of ]27-91-6690JfbyewkmQvrqwhle codes; unclassified (2 sources)Gestation period, 28 weeks; Translations: [28 weeks gestation of ]29-51-1104BowzhnvyBqzefwsw codes; unclassified (2 sources)Gestation period, 30 weeks; Translations: [30 weeks gestation of ]23-73-3344ZtqgbiqeRfrwoqky codes; unclassified (2 sources)Gestation period, 32 weeks; Translations: [32 weeks gestation of ]46-80-6495HndmdinaRsonkzdu codes; unclassified (2 sources)Gestation period, 34 weeks; Translations: [34 weeks gestation of ]93-90-8758RqrfuclrEvcrrnyzfhbu (1 source)CONTACT W/AND (SUSP) EXPOS COVID-19; Translations: [CONTACT W/AND (SUSP) EXPOS COVID-19]Onset: 11-02-2021 Past or Other Problems Problem ClassificationProblemDateDocumented DateEpisodic/ChronicDeficiency and other anemia (1 source)Iron deficiency anemia, unspecified; Translations: [IRON DEFICIENCY ANEMIA UNSPECIFIED]Onset: 71-70-4518AbnkgbslL Codes: Cut/pierceb (1 source)Contact with other sharp object(s), not elsewhere classified, initial encounter; Translations: [[facility] SHRP OB NOT ELSW CLASS INI]Onset: 06-01-2021 EpisodicHemorrhage during ; abruptio placenta; placenta previa (8 sources)Low lying placenta NOS or without hemorrhage, unspecified trimester; Translations: [Complete placenta previa NOS or without hemorrhage, unspecified trimester]Onset: 63-60-0225LnbmiotrWrlou aftercare (1 source)Other correction (current) drug therapy; Translations: [[facility] COMMERCIAL DEVELOPMENT MANAGER CURRENT DRUG THERAPY]Onset: 37-94-2563GmquxkzsXsbmm complications of ; puerperium affecting management of mother (1 source)Diseases of the respiratory system complicating childbirth; Translations: [DISEASES RESP SYS COMP CHILDBIRTH]Onset: 19-91-3954LxvesxrsOxfuv female genital disorders (4 sources)Other specified noninflammatory disorders of vagina; Translations: [OTH SPEC NONINFLAMMATORY D/O VAGINA]Onset: 91-75-6005ZlimpcyjXgoaxkuw (3 sources)Maternal care for unspecified type scar from previous delivery; Translations: [MAT CARE UNS TYPE SCAR PREV C-SECT]Onset: 11-03-2021 EpisodicResidual codes; unclassified (4 sources)Contact with and (suspected) exposure to potentially hazardous body fluids; Translations: [CONTACT AND EXPOS POTENTL HAZ BDY FLUID]Onset: 12-10-2021 EpisodicResidual codes; unclassified (1 source)39 weeks gestation of ; Translations: [39 WEEKS GESTATION OF ]Onset: 14-45-6333WporvmnsPunqzglv codes; unclassified (1 source)Less than 8 weeks gestation of ; Translations: [< 8 WEEKS GESTATION ]Onset: 64-97-5514PszfopyoYngiiudmz and history of mental health and substance abuse codes (1 source)Personal history of nicotine dependence; Translations: [PERSONAL HISTORY OF NICOTINE DEPEND]Onset: 71-52-9647JrsgcglnUmqygbaulri injury; contusion (4 sources)Abrasion of left hand, initial encounter; Translations: [ABRASION LEFT HAND INITIAL ENC]Onset: 41-12-7499Mpydfmme Results Test NameValueInterpretationReference RangeFacilityTBH UA (CLEAN/CATCH) APPLICATIONS ENGINEER/MICRO IF IND.on 27-04-4646JMMEPROMO URINENegativeNEGATIVENOMS Healthcare BLOOD URINENegativeNEGATIVENOMS HealthcareClarity (U)CLEARCLEARNOMS Healthcare Color (U)YELLOWYELLOWNOMS HealthcareGLUCOSE URINE UANegativeNEGATIVE mg/dLNOWY HealthcareInterpretation and review of laboratory resultsAbnormalNOMS Healthcare Ketones Ql (U)TRACEAbnormalNEGATIVE mg/dLNOWY HealthcareLeukocyte esterase Test strip Ql (U)NegativeNEGATIVENOMS HealthcareNITRITE URINENegativeNEGATIVENOMS HealthcarepH (U)6.0 [pH]5.0 - 9.0NOMS HealthcarePROTEIN URINENegativeNEG/TRACE mg/dLNOMS HealthcareSPECIFIC GRAVITY URINE1.0201.005 - 1.025NOMS HealthcareURINE MICROSCOPIC INDICATEDNONOMS HealthcareUROBILINOGEN URINE0.2 EU/dL0.2 - 1.0 EU/dLNOMS HealthcareCLINISYNCNOMS HealthcareUrinalysis macro (dipstick) panel (U)on 01-43-8710Oyndiqorv, UANegativeNegative - 4(70) +++ mg/dLNOMS Healthcare Blood, UANegativeNegative - 50 Guy/mcLNOMS HealthcareClarity, UACloudyNOMS HealthcareColor, UAYellowNOMS HealthcareGlucose, UANegativeNegative - 2000(110) ++++ mg/dLNOWY HealthcareInterpretation and review of laboratory resultsAbnormal NOMS HealthcareKetones, UANegativeNegative - 160(16) ++++ mg/dLNOMS Healthcare Leukocytes, UANegativeNegative - 500+++ Corona/mcLNOMS HealthcareNitrite, UA NegativeNegative - PositiveNOMS HealthcarepH, UA8.05 - 9NOMS HealthcareProtein, UA1+Negative - 2000(20) ++++ mg/dLNOWY HealthcareSpec Grav, UA1.0251 - 1.03NOMS HealthcareUrobilinogen, UA1.00.2 - 12 mg/dLNOMS HealthcareNOMS HealthcareUS OB FOLLOW UP TRANSABDOMINAL APPROACHon 58-36-6549BW OB FOLLOW UP TRANSABDOMINAL APPROACHFINDINGS: Comparison September [...] 29, 2025. The current estimated weight is 2049 grams (4 pounds, 8 ounces). IMPRESSION: Single, live intrauterine , current sonographic age of 32 weeks and 0 days, with an estimated date of delivery of January 29, 2025 (prior BRO January 28, 2025). TRANSCRIBED BY: ELECTRONICALLY SIGNED BY: Pernell Pandya AvailableComment on above:Order Comment: US OB SCAN FOR GROWTH Estimated Date of Delivery: 01/25/25 Gestational Age as of 11/20/2024: 62s3uMbyskwqgmc macro (dipstick) panel (U)on 03-59-2828Lmnloybyp, UANegativeNegative - 4(70) +++ mg/dLNOMS HealthcareBlood, UANegativeNegative [...] mg/dLNOMS HealthcareNOMS HealthcareUrinalysis macro (dipstick) panel (U)on 83-54-7308Iiuwimdzf, UA NegativeNegative - 4(70) +++ mg/dLNOMS HealthcareBlood, UAPositiveNegative - 50 Guy/mcLNOMS HealthcareComment on above:TraceClarity, UAClearNOMS Healthcare Color, UAYellowNOMS HealthcareGlucose, UANegativeNegative - 2000(110) ++++ mg/dL NOMS HealthcareInterpretation and review of laboratory resultsAbnormalNOMS HealthcareKetones, UAPositiveNegative - 160(16) ++++ mg/dLNOMS HealthcareComment on above:1+Leukocytes, UANegativeNegative - 500+++ Corona/mcLNOMS Healthcare Nitrite, UANegativeNegative - PositiveNOMS HealthcarepH, UA65 - 9NOMS Healthcare Protein, UAPositiveNegative - 2000(20) ++++ mg/dLCENTRAL VALLEY MEDICAL CENTER HealthcareComment on above:TraceSpec Grav, UA1.031 - 1.03NOWY HealthcareUrobilinogen, UA0.20.2 - 12 mg/dLPhelps Health HealthcareALL CBC WITH AUTO DIFFon 21-75-3638RHJGNFOVC ABSOLUTE TIJR9WFJG HealthcareBasophils/100 WBC (Bld)0.3 %0.2 - 2.0 %NOMLee'S Summit HospitalEosinophils/100 WBC (Bld)1.2 %0.9 - 7.0 %[facility] NetworkErythrocyte distribution width (RBC) [Ratio]12.7 %11.0 - 15.0 %[facility] NetworkHematocrit (Bld) [Volume fraction]32 %Low36.0 - 48.0 %[facility] NetworkHemoglobin (Bld) [Mass/Vol]10.7 g/dLLow12.0 - 16.0 g/dLN[facility] Health NetworkIMMATURE GRANULOCYTES ABS AUTO0.24HighN[facility]heast [facility] Health NetworkImmature granulocytes/100 WBC (Bld)1.9 %High0.0 - 0.5 %[facility] NetworkInterpretation and review of laboratory resultsAbnormalN[facility] Health NetworkLYMPHOCYTES ABSOLUTE AUTO1.5NOSt. Joseph Medical CenterLymphocytes/100 WBC (Bld) 12.3 %Low20.5 - 60.0 %[facility]' HospitalH (RBC) [Entitic mass]30.9 pg26.7 - 34.0 pgHarry S. Truman Memorial Veterans' HospitalHC (RBC) [Mass/Vol]33.4 g/dL29.9 - 35.2 g/dLN[facility]heast [facility] Network MCV (RBC) [Entitic vol]92.5 fL81.0 - 99.0 fLNortheast Missouri Rural Health NetworkMONOCYTES ABSOLUTE AUTO0.8NOMS [facility] CenterMonocytes/100 WBC (Bld)6.2 %1.7 - 12.0 %[facility] NEUTROPHILS ABSOLUTE AUTO9.7HighNortheast [facility] Rural Health NetworkNeutrophils/100 WBC (Bld)78.1 % High43.0 - 75.0 %[facility] NetworkPlatelet mean volume (Bld) [Entitic vol]9.5 fL 9.5 - 13.5 fLNortheast Missouri Rural Health NetworkTBH EO #0.2NOMS HealthcareTBH JNY193PONY Healthcare TBH RBC3.46LowNOMS HealthcareTBH WBC12.4HighNOMS HealthcareCLINISYNCNOMS HealthcareUrinalysis macro (dipstick) panel (U)on 33-88-0669Dmbcoclhc, UA NegativeNegative - 4(70) +++ mg/dLNOMS HealthcareBlood, UANegativeNegative - 50 Guy/mcLNOMS HealthcareClarity, UAClearNOMS HealthcareColor, UAYellowNOMS HealthcareGlucose, UANegativeNegative - 1999(110) ++++ mg/dLNOMS Healthcare Interpretation and review of laboratory resultsNormalNOMS HealthcareKetones, UA NegativeNegative - 160(16) ++++ mg/dLNOMS HealthcareLeukocytes, UANegative Negative - 500+++ Corona/mcLNOMS HealthcareNitrite, UANegativeNegative - Positive NOMS HealthcarepH, UA6.55 - 9NOMS HealthcareProtein, UANegativeNegative - 1999(20) ++++ mg/dLNOMS HealthcareSpec Grav, UA1.0151 - 1.03NOMS Healthcare Urobilinogen, UA0.20.2 - 12 mg/dLNOMS HealthcareNOWY HealthcareUrinalysis macro (dipstick) panel (U)on 44-96-2258Trxxxlmdh, UANegativeNegative - 4(70) +++ mg/dL NOMS HealthcareBlood, UANegativeNegative - 50 Guy/mcLNOMS HealthcareClarity, UA ClearNOMS HealthcareColor, UAYellowNOMS HealthcareGlucose, UANegativeNegative - 1999(110) ++++ mg/dLNOMS HealthcareInterpretation and review of laboratory resultsAbnormalNOMS HealthcareKetones, UANegativeNegative - 160(16) ++++ mg/dL NOMS HealthcareLeukocytes, UANegativeNegative - 500+++ Corona/mcLNOMS Healthcare Nitrite, UANegativeNegative - PositiveNOMS HealthcarepH, UA65 - 9NOMS Healthcare Protein, UAPositiveNegative - 1999(20) ++++ mg/dLNOMS HealthcareSpec Grav, UA 1.021 - 1.03NOMS HealthcareUrobilinogen, UA1.00.2 - 12 mg/dLNOMS HealthcareNOMS HealthcareALL CBC WITH AUTO DIFFon 35-75-0422PDXXLUGQM ABSOLUTE KZDA9LZQUSt. Joseph Medical CenterBasophils/100 WBC (Bld)0.2 %0.2 - 2.0 %[facility] NetworkEosinophils/100 WBC (Bld)1.9 %0.9 - 7.0 %[facility] NetworkErythrocyte distribution width (RBC) [Ratio]12.6 %11.0 - 15.0 %[facility] NetworkHematocrit (Bld) [Volume fraction]29.6 %Low36.0 - 48.0 %[facility] NetworkHemoglobin (Bld) [Mass/Vol]9.9 g/dLLow12.0 - 16.0 g/dLN[facility] Health NetworkIMMATURE GRANULOCYTES ABS AUTO0.09HighN[facility] Immature granulocytes/100 WBC (Bld)1 %High0.0 - 0.5 %[facility] Interpretation and review of laboratory resultsAbnormalN[facility] LYMPHOCYTES ABSOLUTE AUTO1.3NOSt. Joseph Medical CenterLymphocytes/100 WBC (Bld)14 %Low20.5 - 60.0 %[facility] HospitalH (RBC) [Entitic mass]31 pg26.7 - 34.0 pgHarry S. Truman Memorial Veterans' HospitalHC (RBC) [Mass/Vol]33.4 g/dL29.9 - 35.2 g/dLHarry S. Truman Memorial Veterans' HospitalV (RBC) [Entitic vol]92.8 fL81.0 - 99.0 fLNortheast Missouri Rural Health NetworkMONOCYTES ABSOLUTE AUTO0.6NOSt. Joseph Medical CenterMonocytes/100 WBC (Bld)6.3 %1.7 - 12.0 %[facility] NetworkNEUTROPHILS ABSOLUTE AUTO7.3HighNortheast Missouri Rural Health NetworkNeutrophils/100 WBC (Bld)76.6 %High43.0 - 75.0 %[facility] NetworkPlatelet mean volume (Bld) [Entitic vol]9.6 fL9.5 - 13.5 fL [facility] NetworkTB EO #0.2NOMS [facility] CenterTB [id number] [facility] RBC3.19Low [facility] WBC9.5[facility] NetworkCLINISYNCNMercy Hospital St. LouisUrinalysis macro (dipstick) panel (U)on 76-20-9315Knicrztmv, UANegativeNegative - 4(70) +++ mg/dL NOMS HealthcareBlood, [...] HealthcareNOMS HealthcareUS OB 14+ WEEKS ANATOMY SCANon 08-89-9697QF OB 14+ WEEKS ANATOMY SCANEXAM: US OB [...] II, MD, PHD at 14-Sep-2024 08:26:06 AM [facility] TeleradiologyNormalNot AvailableComment on above:Order Comment: US OB ANATOMY SINGLE W US OB CERVICAL LENGTH Estimated Date of Delivery: 01/25/25 Gestational Age as of 08/29/2024: 82b5rGGR,APTIMA HPV,AGE GDLNon 92-10-6912QNR GDLN ACOG TESTINGNote.NOMS HealthcareComment on above:TESTS RESULT FLAG UNITS REF RANGE LAB Clinician Provided Cytology Information Source.............Endocervix No. of containers..01 ThinPrep Vial Age Mauryo PATTIOG Jenny... FLAG LEGEND: L-Low Normal,H-High Normal,LL-Alert Low,HH-Alert High <-Panic Low,>-Panic High,A-Abnormal,AA-Critical Abnormal Performed at: 01 =[address] [address] Isabelle Quiros MD, HPV APTIMANegativeNegativeNOMS HealthcareComment on above:This nucleic acid amplification test detects fourteen high- risk HPV types (16,18,31,33,35,39,45,51,52,56,58,59,66,68) without differentiation. Performed at: =[address] [id number] Rotor Winder: Isabelle Quiros MD, Phone: [phone] Performed at: [address] [id number] Rotor Winder: Isabelle Quiros MD, Phone: [phone] IGP, APTIMA HPV, RFX 16/18,45Note.NOMS HealthcareComment on above:TESTS RESULT FLAG UNITS REF RANGE LAB DIAGNOSIS: 02 NEGATIVE FOR INTRAEPITHELIAL LESION OR MALIGNANCY. Specimen adequacy: 02 Satisfactory for evaluation. No endocervical component is identified. Performed by: 02 Mya Carrasquillo, Chief Airport Guide (ASCP) . 02 Note: Note 02 The [...] <-Panic Low,>-Panic High,A-Abnormal,AA-Critical Abnormal Performed at: [address] [address] Isabelle Quiros MD, SPATULA-ALONE ENDOCERVIX CLINISYNCNOMS HealthcareRECURRENT VAGINITIS (HTRX)on 52-14-4312KLGVBPEPE VAGINAE 0NOMS HealthcareATOPOBIUM VAGINAENot detectedNOMS HealthcareBVAB 2,3 (BACTERIAL VAGINOSIS ASSOCIATED BACTERIA 2, 3); MOBILUNCUS SPP27.253AbnormalNOMS Healthcare BVAB 2,3 (BACTERIAL VAGINOSIS ASSOCIATED BACTERIA 2, 3); MOBILUNCUS SPPDetected AbnormalNOMS HealthcareCANDIDA ALBICANS, PARAPSILOSIS, [id number] HealthcareCANDIDA ALBICANS, PARAPSILOSIS, TROPICALISNot detectedNOMS Healthcare AKASH [id number] HealthcareCANDIDA GLABRATANot detectedNOMS Healthcare AKASH [id number] HealthcareCANDIDA KRUSEINot detectedNOMS HealthcareCHLAMYDIA [id number] HealthcareCHLAMYDIA TRACHOMATISNot detectedNOMS Healthcare GARDNERELLA TLBJCEJZB32.264AbnormalNOMS HealthcareGARDNERELLA VAGINALISDetected AbnormalNOMS HealthcareInterpretation and review of laboratory resultsAbnormal NOMS HealthcareMEGASPHAERA (TYPES 1, 2)0NOMS HealthcareMEGASPHAERA (TYPES 1, 2) Not detectedNOMS HealthcareMYCOPLASMA [id number] HealthcareMYCOPLASMA GENITALIUMNot detectedNOMS HealthcareNEISSERIA [id number] Healthcare NEISSERIA GONORRHOEAENot detectedNOMS HealthcareTET B, TET M27.391AbnormalNOMS HealthcareTET B, TET MDetectedAbnormalNOMS HealthcareTRICHOMONAS [id number] HealthcareTRICHOMONAS VAGINALISNot detectedNOMS HealthcareNOMS Healthcare Urinalysis macro (dipstick) panel (U)on 29-18-4687Rouwfwpdn, UANegativeNegative - 4(70) +++ mg/dLNOMS HealthcareBlood, UANegativeNegative - 50 Guy/mcLNOMS HealthcareClarity, UAClearNOMS HealthcareColor, UAYellowNOMS HealthcareGlucose, UANegativeNegative - 2000(110) ++++ mg/dLNOMS HealthcareInterpretation and review of laboratory resultsNormalCENTRAL VALLEY [facility]ENTER HealthcareKetones, UANegativeNegative - 160(16) ++++ mg/dLNOMS HealthcareLeukocytes, UANegativeNegative - 500+++ Corona/mcL NOMS HealthcareNitrite, UANegativeNegative - PositiveNOMS HealthcarepH, UA75 - 9 NOMS HealthcareProtein, UANegativeNegative - 2000(20) ++++ mg/dLNOMS Healthcare Spec Grav, UA1.011 - 1.03NOMS HealthcareUrobilinogen, UA0.20.2 - 12 mg/dLNOMS [facility] CenterNOWY HealthcareUrinalysis macro (dipstick) panel (U)on 08-02-2024 Bilirubin, UANegativeNegative - 4(70) +++ mg/dLNOMS HealthcareBlood, UAPositive Negative - 50 Guy/mcLNOMS HealthcareComment on above:smallClarity, UAClearNOMS HealthcareColor, UAYellowNOMS HealthcareGlucose, UANegativeNegative - 2000(110) ++++ mg/dLNOMS HealthcareInterpretation and review of laboratory resultsAbnormal [facility] HealthcareKetones, UAPositiveNegative - 160(16) ++++ mg/dLNOMS Healthcare Comment on above:TraceLeukocytes, UANegativeNegative - 500+++ Corona/mcLNOMS HealthcareNitrite, UANegativeNegative - PositiveNOMS HealthcarepH, UA5.55 - 9 NOMS HealthcareProtein, UANegativeNegative - 1999(20) ++++ mg/dLNOMS Healthcare Spec Grav, UA1.031 - 1.03NOMS HealthcareUrobilinogen, UA0.20.2 - 12 mg/dLNOMS HealthcareNOWY HealthcareALL CBC WITH AUTO DIFFon 56-15-9732BAQCQOEQK ABSOLUTE CTEC5NMLP HealthcareBasophils/100 WBC (Bld)0.4 %0.2 - 2.0 %[facility] Eosinophils/100 WBC (Bld)2.4 %0.9 - 7.0 %[facility] NetworkErythrocyte distribution width (RBC) [Ratio]12.4 %11.0 - 15.0 %[facility] NetworkHematocrit (Bld) [Volume fraction]36.3 %36.0 - 48.0 %[facility] NetworkHemoglobin (Bld) [Mass/Vol]12.6 g/dL 12.0 - 16.0 g/dLNortheast Missouri Rural Health NetworkIMMATURE GRANULOCYTES ABS AUTO0.02NOMS [facility] Immature granulocytes/100 WBC (Bld)0.2 %0.0 - 0.5 %[facility] NetworkInterpretation and review of laboratory resultsAbnormalNOSt. Joseph Medical CenterLYMPHOCYTES ABSOLUTE AUTO1.9NOMS [facility] CenterLymphocytes/100 WBC (Bld)17.4 %Low20.5 - 60.0 %[facility] HospitalH (RBC) [Entitic mass]31 pg26.7 - 34.0 pgHarry S. Truman Memorial Veterans' HospitalHC (RBC) [Mass/Vol]34.7 g/dL29.9 - 35.2 g/dLNortheast Missouri Rural Health NetworkMCV (RBC) [Entitic vol]89.4 fL 81.0 - 99.0 fLNortheast Missouri Rural Health NetworkMONOCYTES ABSOLUTE AUTO0.7NOMS [facility] Monocytes/100 WBC (Bld)6.7 %1.7 - 12.0 %[facility] NetworkNEUTROPHILS ABSOLUTE AUTO 7.8HighNOSt. Joseph Medical CenterNeutrophils/100 WBC (Bld)72.9 %43.0 - 75.0 %[facility] NetworkPlatelet mean volume (Bld) [Entitic vol]9.5 fL9.5 - 13.5 fLNortheast Missouri Rural Health NetworkTBH EO #0.3NOMS [facility] CenterTB [id number]. Joseph Medical CenterTB RBC4.06LowNOSt. Joseph [facility] CenterTB WBC10.7NOWY HealthcareCLINISYNCNOMS HealthcareBOX TESTon [id number] TEST SENT OUTYESNOWY HyzoygwqzkXHQ4TVBIWVGEI EvpbmmiztfMUF51/10/25 [facility] HealthcareUNITY BOX CLINISYNCNOWY HealthcareUS OB TRANSVAGINALon 04-03-2367SD OB TRANSVAGINALEXAM: US OB TRANSVAGINAL HISTORY: Dating. [...] II, MD, PHD at 06-Jul-2024 12:18:02 PM [facility]ese TeleradiologyNormalNot AvailableComment on above:Order Comment: US OB TRANSVAGINAL No LMP recorded.PAP ACOG PANEL 2: 30 to 65on 03-16-2022..NormalThe [facility] HospitalComment on above:Result Comment: Performed at: WBPerformed By: #### HIV12 #### [facility] [address] [place] [address] Dr. Nolvia Dugan Gdln ACOG Ymlpkge82-56ZxeyezGbgSt. John of God HospitalComment on above:Performed By: #### HIV12 #### [facility] [address] [place], [place] [address] Dr. Nolvia RuvalcabaDIAGNOSIS:CommentNoSt. Vincent Hospital on above: Result Comment: NEGATIVE FOR INTRAEPITHELIAL LESION OR MALIGNANCY. Performed at: WBPerformed By: #### HIV12 #### [facility] [address] [place] [address] Dr. Nolvia Oliveira AptimaNegativeNormalNegativeThe [place] [facility] on above:Result Comment: This nucleic acid amplification test detects fourteen high-risk HPV types (16,18,31,33,35,39,45,51,52,56,58,59,66,68) without differentiation. Performed at: =GPerformed By: #### HIV12 #### [facility] [address] [place] [address] Dr. Nolvia Oliveira Genotype ReflexCommentNoSt. Vincent Hospital on above:Result Comment: Criteria not met, HPV Genotype not performed. Performed at: WBPerformed By: #### HIV12 #### [place] [address] Dr[address] Nolvia RuvalcabaMethodology:CommentTrinity Health System Twin City [facility] on above: Result Comment: This liquid based ThinPrep(R) pap test was screened with the use of an image guided system. Performed at: WBPerformed By: #### HIV12 #### [place] [address] [address] Nolvia RuvalcabaNote:CommentTrinity Health System Twin City [facility] Center on above:Result Comment: The Pap smear is a screening test designed to aid in the detection of premalignant and malignant conditions of the uterine cervix. It is not a diagnostic procedure and should not be used as the sole means of detecting cervical cancer. Both false-positive and false-negative reports do occur. . Performed at: WBPerformed By: #### HIV12 #### [facility] [address] [place] [address] Dr. Nolvia RuvalcabaPerformed by:CommentTrinity Health System Twin City Medical Center on above: Result Comment: Inessa Sanchez Client Evaluator (ASCP) Performed at: WBPerformed By: #### HIV12 #### [place] [address] [address] Nolvia Marin adequacy:CommentNormalThe [place] [facility] on above:Result Comment: Satisfactory for evaluation. Endocervical and/or squamous metaplastic cells (endocervical component) are present. Performed at: WBPerformed By: #### HIV12 #### [facility] [address] [place] [address] [address] Nolvia CaiTIS C ANTIBODYon 10-24-5273Jot C Virus Ab<0.9Zpwaaw9.0-0.9 [facility] [place] [facility] on above:Result Comment: Negative: < 0.8 Indeterminate: [...] Hepatitis C Virus (HCV) RNA, Diagnosis, THERON (527755) and Hepatitis C Virus (HCV) Antibody with reflex to Quantitative Real-time PCR (732704).Performed By: #### HIV12 #### [facility] [address] [place] [address] Dr. Nolvia Tomlin 1 AND 2 WITH REFLEXon 15-16-4837ABV Screen 4th Generation wRfxNon-ReactiveNormalNon ReactiveThe [place] [facility] on above:Result Comment: HIV Negative HIV-1/HIV-2 antibodies and HIV-1 p24 antigen were NOT detected. There is no laboratory evidence of HIV infection.Performed By: #### HIV12 #### [facility] [address] [place] [address] Dr. Nolvia Boykin [id number] [Catalytic activity/Vol]59 U/PRinfzn16-99Cei [place] [facility] on above:Performed By: #### ALT ####[facility] [address]medvufftj[address] [place] [address]Dr.Yilan Pike AUTO DIFFon 11-10-7086ADUI #0.1 103/ulNormal0.0-0.1The [place] [facility] on above: Performed By: #### CBC ####[facility] Upcnnhoqrf[address] [place] [address]Dr.Yilan ChangBasophils/100 WBC (Bld)0.4 %Normal 0.2-2.0The [facility] HospitalComment on above:Performed By: #### CBC ####[facility] Aeqbwfsonj5[address] [place] [address]Dr.Yilan ChangEO # 0.2 103/ulNormal0.0-0.7The [facility] HospitalComment on above:Performed By: #### CBC ####[facility] Coznezxxko8[address] [place], [place] [address]Dr. Yilan ChangEosinophils/100 WBC (Bld)1.3 %Normal0.9-7.0The [facility] Comment on above:Performed By: #### CBC ####[facility] Uqizsvsqkw201[address] [place], [place] [address]Dr.Yilan ChangErythrocyte distribution width (RBC) [Ratio]14.2 %Kvafzo27.0-15.0The [facility] HospitalComment on above: Performed By: #### CBC ####[facility] Gviglqrhqq227[address] [place], [place] [address]Dr.Yilan ChangHematocrit (Bld) [Volume fraction]28.8 % Critically low36.0-48.0The [facility] HospitalComment on above:Performed By: #### CBC ####[facility] Ebdknbqbsp88[address] [place], [place] [address]Dr. Yilan ChangHemoglobin (Bld) [Mass/Vol]9.0 g/dLCritically low12.0-16.0The [facility] HospitalComment on above:Performed By: #### CBC ####[facility] Qisqsecuxi22[address] [place], [place] [address]Dr.Yilan ChangIG #0.16 10e3/ulCritically high0.00-0.03The [facility] HospitalComment on above:Performed By: #### CBC ####[facility] Jyzbxilwxg930[address] [place], [place] [address]Dr.Yilan ChangIG %1.1 %Critically high0.0-0.5The [facility] HospitalComment on above:Performed By: #### CBC ####[facility] Hzkpsqykwz235[address] [place], [place] [address]Dr.Nolvia AgarwalH #1.8 103/ulNormal1.2-3.8The [facility] HospitalComment on above:Performed By: #### CBC ####[facility] Prffytcgyb1936[address] [place], [place] [address]Dr.Nolvia RuvalcabaLymphocytes/100 WBC (Bld)12.4 %Critically low20.5-60.0The [facility]ellon HospitalComment on above: Performed By: #### CBC ####[facility] Xcxtwmfpap[address] [place], [place] [address]Dr.Nolvia RuvalcabaMANUAL DIFF REQNONormalThe [facility] HospitalComment on above:Performed By: #### CBC ####[facility] Axialojrsp2701[address] [place], [place] [address]Dr.Nolvia RuvalcabaHARLEM [facility] (RBC) [Entitic mass]28.6 anYuswgp24.7-34.0The [facility] HospitalComment on above: Performed By: #### CBC ####[facility] Whglnzwrha615[address] [place], [place] [address]Dr.Nolvia RuvalcabaHC (RBC) [Mass/Vol]31.3 g/dLNormal 29.9-35.2The [facility] HospitalComment on above:Performed By: #### CBC ####[facility] Iombrbarqc347[address] [place], [place] [address]Dr. Nolvia RuvalcabaV (RBC) [Entitic vol]91.4 vDNztjym77.0-99.0The [facility] Comment on above:Performed By: #### CBC ####[facility] Mfstrnknyv886[address] [place], [place] [address]Dr.Nolvia TothO #1.0 103/ulCritically high0.3-0.8The [facility]on HospitalComment on above:Performed By: #### CBC ####[facility] Mmjemelrhy854[address] [place], [place] [address]Dr. Yilan ChangMonocytes/100 WBC (Bld)6.9 %Normal1.7-12.0The [facility] Comment on above:Performed By: #### CBC ####[facility] Xztiqieytw79[address] [place] [address]Dr.Nolvia RuvalcabaNEUT #11.3 103/ulCritically high1.4-6.5The [facility] HospitalComment on above:Performed By: #### CBC ####[facility] Nqfpvmzwwp700[address] [place], [place] [address]Dr. Liyalan JordonNeutrophils/100 WBC (Bld)77.9 %Critically high43.0-75.0The [facility] HospitalComment on above:Performed By: #### CBC ####[facility] Alsbgnvgbb979[address] [place], [place] [address]Dr.Nolvia ChangPlatelet mean volume (Bld) [Entitic vol]9.8 fLNormal9.5-13.5The [facility] HospitalComment on above:Performed By: #### CBC ####[facility] Swplfjwjir514[address] [place], [place] [address]Dr.Nolvia FarfgXAU082 103/ktRqlejj407-010Frb [facility] HospitalComment on above:Performed By: #### CBC ####[facility] Ntyiranmqr7727[address] [place], [place] [address]Dr.Nolvia ChangRBC3.15 106/ul Critically low4.20-5.40The [facility] HospitalComment on above:Performed By: #### CBC ####[facility] Uuvnvqrvvt418[address] [place], [place] [address]Dr. Nolvia NtgyoYDZ77.6 103/ulCritically high4.0-11.0The [facility] HospitalComment on above:Performed By: #### CBC ####[facility] Wnurkkksjb685[address] [place], [place] [address]Dr.Nolvia RuvalcabaCBC AUTO DIFFon 79-89-6094TPPS #0.1 103/ulNormal0.0-0.1The [facility] HospitalComment on above:Performed By: #### CBC ####[facility] Sgpkwqkwxj5[address] [place] [address]Dr. Yilan ChangBasophils/100 WBC (Bld)0.3 %Normal0.2-2.0The [facility] HospitalComment on above:Performed By: #### CBC ####[facility] Saubylwmsk574[address] [place], [place] [address]Dr.Yilan ChangEO #0.1 103/ulNormal0.0-0.7The [facility] HospitalComment on above:Performed By: #### CBC ####[facility] Crtvoorwsf0055[address] [place], [place] [address]Dr.Yilan ChangEosinophils/100 WBC (Bld)1.0 %Normal0.9-7.0The [facility] HospitalComment on above:Performed By: #### CBC ####[facility] Duihldsawj576[address] [place], [place] [address]Dr.Yilan ChangErythrocyte distribution width (RBC) [Ratio]14.2 %Normal 11.0-15.0The [facility] HospitalComment on above:Performed By: #### CBC ####[facility] Aasevxiuia702[address] [place], [place] [address]Dr. Liyayaniv ChangHematocrit (Bld) [Volume fraction]33.5 %Critically low36.0-48.0The [facility] HospitalComment on above:Performed By: #### CBC ####[facility] Dcnfhwhnky3860[address] [place], [place] [address]Dr.Nolvia ChangHemoglobin (Bld) [Mass/Vol]10.9 g/dLCritically low12.0-16.0The [facility] HospitalComment on above:Performed By: #### CBC ####[facility] Vbimmonohr496[address] [place], [place] [address]Dr.Yilan ChangIG #0.22 10e3/ulCritically high0.00-0.03 The [facility] HospitalComment on above:Performed By: #### CBC ####[facility] Epxcensosz454[address] [place], [place] [address]Dr.Yilan ChangIG % 1.5 %Critically high0.0-0.5The [facility] HospitalComment on above:Performed By: #### CBC ####[facility] Lpwswumtzn24[address] [place] [address]Dr.Nolvia RuvalcabaLYMPH #2.3 103/ulNormal1.2-3.8The [facility] HospitalComment on above:Performed By: #### CBC ####[facility] Vyqcklvcmw369[address] [place], [place] [address]Dr.Nolvia RuvalcabaLymphocytes/100 WBC (Bld)16.1 % Critically low20.5-60.0The [facility] HospitalComment on above:Performed By: #### CBC ####[facility] Sgeoamqlop548[address] [place], [place] [address]Dr. Nolvia RuvalcabaMANUAL DIFF REQNONormalThe [facility] HospitalComment on above: Performed By: #### CBC ####[facility] Cmqgzvunsk339[address] [place], [place] [address]Dr.Nolvia RuvalcabaH (RBC) [Entitic mass]29.0 pgNormal 26.7-34.0The [facility] HospitalComment on above:Performed By: #### CBC ####[facility] Bytoymtxzl6915[address] [place], [place] [address]Dr. Nolvia RuvalcabaMCHC (RBC) [Mass/Vol]32.5 g/xKNpikxg12.9-35.2The [facility] Comment on above:Performed By: #### CBC ####[facility] Nkidqzzjrg526[address] [place], [place] [address]Dr.Nolvia RuvalcabaMCV (RBC) [Entitic vol]89.1 fL Wziamd91.0-99.0The [facility] HospitalComment on above:Performed By: #### CBC ####[facility] Hzdornbvkz040[address] [place], [place] [address]Dr. Nolvia RuvalcabaMONO #1.0 103/ulCritically high0.3-0.8The [facility] HospitalComment on above:Performed By: #### CBC ####[facility] Kiqkiwxcju823[address] [place], [place] [address]Dr.Nolvia JordonMonocytes/100 WBC (Bld)7.0 %Normal 1.7-12.0The [facility] HospitalComment on above:Performed By: #### CBC ####[facility] Kknxgxxphs26[address] [place] [address]DrDinorah AnneUT #10.6 103/ulCritically high1.4-6.5The [facility] HospitalComment on above:Performed By: #### CBC ####[facility] Ygksjmsjsm375[address] [place], [place] [address]Dr.Nolvia RuvalcabaNeutrophils/100 WBC (Bld)74.1 %Normal 43.0-75.0The [facility] HospitalComment on above:Performed By: #### CBC ####[facility] Iqvfodfmaz400[address] [place], [place] [address]DrDinorah RuvalcabaPlatelet mean volume (Bld) [Entitic vol]10.4 fLNormal9.5-13.5The [facility] HospitalComment on above:Performed By: #### CBC ####[facility] Rfqakbtpcd937[address] [place], [place] [address]DrAngel RuvalcabaPLT320 103/ul Wqrage687-533Uez [facility] HospitalComment on above:Performed By: #### CBC ####[facility] Dtyyxukxrt839[address] [place], [place] [address]Dr. Nolvia RuvalcabaRBC3.76 106/ulCritically low4.20-5.40The [facility] HospitalComment on above:Performed By: #### CBC ####[facility] Zopwucevsa5636[address] [place], [place] [address]DrAngel RuvalcabaWBC14.3 103/ulCritically high4.0-11.0The [facility] HospitalComment on above:Performed By: #### CBC ####[facility] Ebfrmqmpzb3313[address] [place], [place] [address]Dr.Yilan RuvalcabaCULTURE URINEon 98-57-8364SNRZMDY URINECulture Observations: NO GROWTH.NormalThe [facility] HospitalComment on above:Performed By: #### URCX #### [facility] [address] [place] [address] Dr. Nolvia Jc SCREEN RAPID (URINE)on [id number]I The [facility] HospitalComment on above:Performed By: #### DRUGRPD ####[facility] Twiwbgqmzr127[address] [place], [place] [address]Dr. Nolvia RuvalcabaBAR NegativeNormalNEGATIVEUniversity Hospitals Geneva Medical CenterComment on above:Performed By: #### DRUGRPD ####[facility] Eyvpyxtonp7[address] [place], [place] [address]Dr. Nolvia RuvalcabaBUPNegativeNormalNEGATIVEUniversity Hospitals Geneva Medical CenterComment on above:Performed By: #### DRUGRPD ####[facility] Dvftysqzxt909[address] [place], [place] [address]Dr. Nolvia RuvalcabaBZONegativeNormalNEGATIVEUniversity Hospitals Geneva Medical CenterComascension borg[facility] le[facility] hospital on above:Performed By: #### DRUGRPD ####[facility] Ejsqjnccla159[address] [place], [place] [address]Dr. Nolvia RuvalcabaCOCNegative NormalNEGATIVEUniversity Hospitals Geneva Medical CenterComment on above:Performed By: #### DRUGRPD ####[facility] Oxslvypcgc423[address] [place], [place] [address]Dr. Nolvia RuvalcabaCUT-JEFFERSON ABINGTON HOSPITALE [facility] DaytonComascension borg[facility] on above:Result Comment: AMP (Amphetamine): 500ng/mL, BAR (Barbituates): 200 ng/mL, BZO (Benzodiazepines): 150 ng/mL, BUP (Buprenorphine): 10 ng/mL, MARIO (Cocaine): 150 ng/mL, mAMP (Methamphetamine): 500 ng/mL, MTD (Methadone): 200 ng/mL, OPI (Opiates): 100 ng/mL, OXY (Oxycodone): 100 ng/mL, PCP (Phencyclidine): 25 ng/mL, PPX (Propoxyphene): 300 ng/mL, THC (Cannabinoids): 50 ng/mL, TCA (Trycyclic Antidepressants): 300 ng/mLPerformed By: #### DRUGRPD ####[facility] Ykkrsuoxuk234[address] [place], [place] [address]Dr. Nolvia Jc CUT HEADERDRUG CLASS TEST SYSTEM CUT-OFF CONCENTRATIONS ARE FOLLOWS:NormalThe Dunnellon HospitalComment on above:Performed By: #### DRUGRPD ####[facility] Iytpgwmvis[address] [place] [address]Dr. Yilan ChangmAMP NegativeNormalNEGATIVETrihealth Bethesda Butler Hospital HospitalComment on above:Performed By: #### DRUGRPD ####[facility] Kncjmyanzd[address] [place], [place] [address]Dr. Yilan ChangMTDNegativeNormalNEGATIVETrihealth Bethesda Butler Hospital HospitalComment on above:Performed By: #### DRUGRPD ####[facility] Rgidpnidos18[address] [place], [place] [address]Dr. Yilan ChangOPINegativeNormalNEGATIVETrihealth Bethes[facility] Hospital HospitalComment on above:Performed By: #### DRUGRPD ####[facility] Shiwlrnchw[address] [place], [place] [address]Dr. Yilan ChangOXYNegative NormalNEGATIVETrihealth Bethesda Butler Hospital HospitalComment on above:Performed By: #### DRUGRPD ####[facility] Pwmeedzfui[address] [place], [place] [address]Dr. Yilan ChangPCPNegativeNormalNEGATIVETrihealth Bethes[facility] Hospital HospitalComment on above: Performed By: #### DRUGRPD ####[facility] Qjycitpccz665[address] [place], [place] [address]Dr. Yilan ChangPPXNegativeNormalNEGATIVETrihealth Bethesda Butler Hospital HospitalComment on above:Performed By: #### DRUGRPD ####[facility] Rvkuiaytvy4[address] [place], [place] [address]Dr. Yilan ChangTCANegative NormalNEGATIVETrihealth Bethes[facility] Butler Hospital HospitalComment on above:Performed By: #### DRUGRPD ####[facility] Dwucbajhlj284[address] [place], [place] [address]Dr. Yilan ChangTHCNegativeNormalNEGATIVETrihealth Bethes[facility] Hospital HospitalComment on above: Performed By: #### DRUGRPD ####[facility] Jwzyhdbkan48[address] [place], [place] [address]Dr. Yilan ChangTYPE AND SCREENon 64-04-2076TGHA AND SCREENNegativeNormalThe [facility] HospitalComment on above:Performed By: #### TNS #### [facility] [address] [place] [address] [address] Nolvia Sánchez (CLEAN/CATCH) APPLICATIONS ENGINEER/MICRO IF IND.on 74-86-2265Cosdlqynz Ql (U) NegativeNormalNEGATIVETrihealth Bethesda Butler Hospital HospitalComment on above:Performed By: #### MAUREEN DEVRIESCSIND ####[facility] Grkjiqkxzm68[address] [place] [address]Dr. Nolvia RuvalcabaClarity (U)SL CLOUDYAbnormalCLEARThWVUMedicine Barnesville Hospital Comment on above:Performed By: #### VENKATESH DEVRIESIND ####[facility] Fughytonob[address] [place] [address]Dr. Nolvia RuvalcabaColor (U)LT. YELLOWNormalYELLOWTrihealth Bethesda Butler Hospital HospitalComment on above:Performed By: #### MAUREEN DEVRIESCSIND ####[facility] Fbmuicofmj5[address] [place] [address]Dr. Nolvia RuvalcabaGlucose Ql (U)NegativeNormalNEGATIVETrihealth Bethesda Butler Hospital HospitalComment on above:Performed By: #### VENKATESH DEVRIESIND ####[facility] Jvcbissqbh9[address] [place] [address]Dr. Nolvia Ruvalcaba Hemoglobin Ql (U)SMALLAbnormalNEGATIVETrihealth Bethesda Butler Hospital HospitalComment on above: Performed By: #### MAUREEN DEVRIESCSIND ####[facility] Fppebzvxad8854 [place] [address]Dr. Nolvia RuvalcabaKetones Ql (U)NegativeNormal NEGATIVETrihealth Bethesda Butler Hospital HospitalComment on above:Performed By: #### MAUREEN DEVRIESCSIND ####[facility] Wwuhhwvzwn88[address] [place], [place] [address]Dr. Nolvia RuvalcabaLEUKOCYTESSMALLAbnormalNEGATIVETrihealth Bethes[facility] Hospital HospitalComment on above: Performed By: #### MAUREEN DEVRIESCSIND ####[facility] Wpgaybaqfd51[address] [place] [address]Dr. Yilan ChangNitrite Ql (U)NegativeNormal NEGATIVEThe [facility] HospitalComment on above:Performed By: #### VENKATESH DEVRIESIND ####[facility] Oqizuvkpvn07[address] [place] [address]Dr. Nolvia ChangpH (U)6.0 [pH]Normal5-9The [facility] HospitalComment on above: Performed By: #### VENKATESH DEVRIESIND ####[facility] Iedbwovfvj9[address] [place], [place] [address]Dr. Liyayaniv ChangSPEC GRAVITY>=1.030Abnormal 1.005-<=1.025The [facility] HospitalComment on above:Performed By: #### VENKATESH DEVRIESIND ####[facility] Rbzmatmfus99[address] [place], [place] [address]Dr. Nolvia RuvalcabaUA PROTEINNegativeNormalNEGATIVE/ TRACEThe [facility] Comment on above:Performed By: #### VENKATESH DEVRIESIND ####[facility] Myjwhblbmk856[address] [place], [place] [address]Dr. Nolvia ChangUR MICRO IND INDICATEDBrown Memorial HospitalComment on above:Performed By: #### WILLIAM DEVRIES ####[facility] Lygassovoe[address] [place], [place] [address]Dr. Nolvia RuvalcabaUrobilinogen Qn (U)0.2 {Cami'U}/dLNormal0.2 - 1.0The [facility] HospitalComment on above:Performed By: #### WILLIAM DEVRIES ####[facility] Atepvrdaes[address] [place], [place] [address]Dr. Nolvia RuvalcabaURINE MICROSCOPIC ONLYon [id number]IUKF SEEN The [facility] HospitalComment on above:Performed By: #### VENKATESH DEVRIESIND ####[facility] Elcdyckksa288[address] [place], [place] [address]Dr. Nolvia RuvalcabaBacteria identified Cx Nom (U)[facility] Comment on above:Performed By: #### WILLIAM DEVRIES ####[facility] Tqpqwalazd[address] [place] [address]Dr. Nolvia ChangCASTNONE SEEN NormalNONE SEENThe [facility] HospitalComascension borg[facility] hospital on above:Performed By: #### KAYCE UACSIND ####[facility] Maoebdseey[address] [place] [address]Dr. Nolvia JordonCrystals LM Nom (Urine sed)NONE SEENNormalNONE SEENThe [facility] HospitalComascension borg[facility] hospital on above:Performed By: #### KAYCE UACSIND ####[facility] Ebeekgoavs[address] [place] [address]Dr. Nolvia ChangEpithelial cells LM Ql (Urine sed)MODERATEAbnormalNONE SEEN /RAREThe [facility] HospitalComascension borg[facility] hospital on above:Performed By: #### KAYCE UACSIND ####[facility] Ljmwhiefgc60[address] [place] [address]Dr. Nolvia RuvalcabaMUCOUSNONE SEENNormalNONE SEENThe [facility] HospitalComascension borg[facility] hospital on above: Performed By: #### KAYCE UACSIND ####[facility] Owluugkkyu7[address] [place] [address]Dr. Nolvia RuvalcabaGihvzXPC2-4Jgdpgihm5-0Lae [facility] HospitalComascension borg[facility] on above:Performed By: #### KAYCE UACSIND ####[facility] Fhdksipvtc32[address] [place] [address]Dr. Nolvia RuvalcabaWBC 5-10AbnormalNONE SEENThe [facility] HospitalComascension borg[facility] hospital on above:Performed By: #### KAYCE UACSIND ####[facility] Cyswbnycqs[address] [place], [place] [address]Dr. Nolvia RuvalcabaCovid-19 PCR (CVDTBH)on [id number]-CoV-2 (COVID-19) RNA THERON+probe Ql (Unsp spec)Not detectedNormalNOT DETECTEDThe [facility] Comment on above:Result Comment: This test is not yet approved or cleared by the [place] FDA. When there are no FDA-approved or cleared tests available, and other criteria are met, FDA can make tests available under an emergency access mechanism called an Emergency Use Authorization (EUA). The EUA for this test is supported by the [place] of Health and Human Service's (HHS's) declaration [...] consistent with SARS-CoV-2.Performed By: #### HIV12 #### [facility] [address] [place] [address] Dr. Nolvia Jain B STREP CULTUREon 10-14-2021. agalactiae Ag Ql (Unsp spec) Culture Observations: NEGATIVE FOR GROUP B STREPTOCOCCUS.[facility] on above: Performed By: #### GBSCX #### [facility] [address] [place] [address] Dr. Nolvia Wade RNA BY PCR QUANT (NON-GRAPHICAL) Won 02-43-1974AUT Genotype RTNIBrown Memorial HospitalComascension borg[facility] hospital on above:Result Comment: Not indicated Performed By: #### HCVPCRN ####[facility] Jiqozj[address] [place], [place] [address]DrDinorah RuvalcabaHCV rnj54DITEATKxjqoqNpzBrown Memorial HospitalComascension [facility]org[facility] le[facility] hospital on above:Result Comment: Unable to calculate result since non- numeric result obtained for component test.Performed By: #### HCVPCRN ####[facility] Qhsxxvf[address] [place], [place] [address]DrDinorah Velazquezpatitis C QuantitationNot detectedBrown Memorial HospitalComment on above:Performed By: #### HCVPCRN ####[facility] [address] [address]Dr. Nolvia RuvalcabaTest Information:[facility] on above: Result Comment: The quantitative range of this assay is 15 IU/mL to 100 million IU/mL.Performed By: #### HCVPCRN ####[facility] [address] [address]DrDinorah RuvalcabaHIV 1 AND 2 WITH REFLEXon 90-06-3272IED Screen 4th Generation wRfxNon-ReactiveNormalNon ReactiveUniversity Hospitals Geneva Medical Center Comment on above:Result Comment: HIV Negative HIV-1/HIV-2 antibodies and HIV-1 p24 antigen were NOT detected. There is no laboratory evidence of HIV infection.Performed By: #### A1C #### [facility] [address] [place] [address] Dr. Nolvia RuvalcabaRPR QUANTon 91-29-1457Ljruj Plasma Reagin, QuantNon-Reactive NormalNonRea<1:1The [facility] HospitalComment on above:Result Comment: Please Note: This test does not meet current guidelines for screening and diagnosis of syphilis. This test is intended for following treatment response in patients being treated for syphilis infection. To screen for syphilis infection, a reflex cascade that includes both RPR and a treponema-specific assay should be utilized, such as Treponema pallidum (Syphilis) Screening [place] (949890) or Rapid Plasma Reagin (RPR) Test With Reflex to Quantitative RPR and Confirmatory Treponema pallidum Antibodies (458989).Performed By: #### HIV12 #### [facility] [address] [place] [address] Dr. Nolvia RuvalcabaGLUCOSE - 1HRon 72-38-3524Qaducao [Mass/Vol]124 mg/dLCritically iaro66-084Ncv [facility] HospitalComment on above:Performed By: #### GLU1HR ####[facility] [address] [address]DrDinorah RuvalcabaHEMOGRAM AND PLATELon 17-59-2284Mnbetcamaf (Bld) [Volume fraction] 33.2 %Critically low36.0-48.0[facility] Hospitalment on above:Performed By: #### HIV12 #### [facility] [address] [place] [address] Dr. Nolvia RuvalcabaHemoglobin (Bld) [Mass/Vol]10.5 g/dLCritically low12.0-16.0The [facility] HospitalComment on above:Performed By: #### HIV12 #### [facility] [address] [place] [address] Dr. Nolvia Verdin (RBC) [Entitic mass]29.4 ojTipxti91.7-34.0The [facility] HospitalComment on above:Performed By: #### HIV12 #### [facility] [address] [place] [address] Dr. Nolvia RuvalcabaBROOKLYN [facility] (RBC) [Mass/Vol]31.6 g/aRLaovpg86.9-35.2The [facility] HospitalComment on above:Performed By: #### HIV12 #### [facility] [address] [place] [address] Dr. Nolvia Verdin (RBC) [Entitic vol]93.0 rEAwarra18.0-99.0The [facility] HospitalComment on above:Performed By: #### HIV12 #### [facility] [address] [place] [address] Dr. Nolvia RuvalcabaPLT303 103/boHbtrfa428-276Ywl [facility] HospitalComment on above: Performed By: #### HIV12 #### [facility] [address] [place] [address] Dr. Nolvia RuvalcabaRBC3.57 106/ulCritically low4.20-5.40The [facility] HospitalComment on above:Performed By: #### HIV12 #### [facility] [address] [place] [address] Dr. Nolvia RuvalcabaWBC12.3 103/ulCritically high4.0-11.0The [facility] HospitalComment on above:Performed By: #### HIV12 #### [facility] [address] [place] [address] Dr. Nolvia Posadas PREG PLACENTAon 76-15-4594YQ PREG PLACENTAEXAMINATION: US PREG PLACENTA HISTORY: Low lying placenta COMPARISON: Ultrasound placenta 07/30/2021 FINDINGS: PLACENTA: Posterior with lower margin 3.8 cm from os. CERVIX LENGTH: 4.6 cm; closed. HEART RATE: 138 bpm OTHER: None. IMPRESSION: 1. Posterior placenta which is no longer low-lying. Electronically authenticated by: FRANCIA CRENSHAW Date: 2021-08-18 16:15NormalUniversity Hospitals Geneva Medical CenterUS PREG PLACENTAon 07-80-6978QI PREG PLACENTAEXAMINATION: US PREG PLACENTA HISTORY: Placenta previa without hemorrhage COMPARISON: Ultrasound anatomy 06/18/2021 FINDINGS: PLACENTA: Posterior, grade 1, with lower margin 2.5 cm from os. CERVIX LENGTH: 3.7 cm, closed. HEART RATE: 134 bpm OTHER: None. IMPRESSION: 1. Low lying posterior placenta with margin 2.5 cm from os. Electronically authenticated by: FRANCIA CRENSHAW Date: 2021-07-30 17:39[facility] C RNA BY PCR QUANT (NON-GRAPHICAL) Won [id number] GenotypeRTNIBrown Memorial HospitalComment on above:Result Comment: Not indicatedPerformed By: #### HCVPCRN ####[facility] V[address] [place], [place] [address]Dr. Yilan ChangHCV zce46VQLDOSWrjfbdLgeBrown Memorial HospitalComment on above:Result Comment: Unable to calculate result since non- numeric result obtained for component test.Performed By: #### HCVPCRN ####[facility] Swbndoecql[address] [place], [place] [address]Dr. Yilan ChangHepatitis C QuantitationNot detectedBrown Memorial HospitalComment on above:Performed By: #### HCVPCRN ####[facility] M[address]ywqy[address] [place], [place] [address]Dr. Yilan ChangTest Information:[facility] MemorialComment on above: Result Comment: The quantitative range of this assay is 15 IU/mL to 100 million IU/mL.Performed By: #### HCVPCRN ####[facility] Aihjelcmtf[address] [place], [place] [address]Dr. Yilan ChangHIV 1 AND 2 WITH REFLEXon 95-36-5489WOM Screen 4th Generation wRfxNon-ReactiveNormalNon ReactiveUniversity Hospitals Geneva Medical Center Comment on above:Result Comment: HIV Negative HIV-1/HIV-2 antibodies and HIV-1 p24 antigen were NOT detected. There is no laboratory evidence of HIV infection.Performed By: #### HIV12 ####[facility] [address] [place], [place] [address]MyDr. Nolvia StreetR QUANTon 65-47-6648Wcmeo Plasma Reagin, QuantNon-ReactiveNormal NonRea<1:1The [facility] HospitalComment on above:Result Comment: Please Note: This test does not meet current guidelines for screening and diagnosis of syphilis. This test is intended for following treatment response in patients being treated for syphilis infection. To screen for syphilis infection, a reflex cascade that includes both RPR and a treponema-specific assay should be utilized, such as Treponema pallidum (Syphilis) Screening [place] (839581) or Rapid Plasma Reagin (RPR) Test With Reflex to Quantitative RPR and Confirmatory Treponema pallidum Antibodies (881997).Performed By: #### RPRQ #### [facility] [address] [place], [place] [address] Dr. Nolvia Posadas PREG ANATOMY SINGLEon 68-98-6539XE PREG ANATOMY SINGLE EXAMINATION: US PREG ANATOMY [...] Electronically authenticated by: KASEY NYE Date: 2021-06-18 16:55NormCleveland Clinic South Pointe HospitalHEP B SURFACE AB QUALITATIVEon 79-19-5556Ooe B Surface Ab, Qual ReactiveNoSt. John of God HospitalComment on above:Result Comment: Non Reactive: Inconsistent with immunity, less than 10 mIU/mL Reactive: Consistent with immunity, greater than 9.9 mIU/mLPerformed By: #### HBSABQL ####[facility] J[address]jhzw[address] [place], [place] [address]DrDinorah CaiTIS C ANTIBODYon 88-39-8351Dqu C Virus Ab<0.6Yenqmo9.0-0.9The [place] [facility] on above:Result Comment: Negative: < 0.8 Indeterminate: 0.8 - 0.9 Positive: > 0.9 . The CDC recommends that a positive HCV antibody result be followed up with a HCV Nucleic Acid Amplification test (304672).Performed By: #### HIV12 #### [facility] [address] [place] [address] Dr. Nolvia Tomlin 1 AND 2 WITH REFLEXon 53-49-2781FFD Screen 4th Generation wRfxNon-ReactiveNormalNon ReactiveThe [place] [facility] on above:Result Comment: HIV Negative HIV-1/HIV-2 antibodies and HIV-1 p24 antigen were NOT detected. There is no laboratory evidence of HIV infection.Performed By: #### HIV12 ####[facility] [address]lmigf[address] [place], [place] [address]Dr. Nolvia StreetR QUANTon 94-13-5314Jegls Plasma Reagin, QuantNon-ReactiveNormal NonRea<1:1The [facility] Hospitalment on above:Result Comment: Please Note: This test does not meet current guidelines for screening and diagnosis of syphilis. This test is intended for following treatment response in patients being treated for syphilis infection. To screen for syphilis infection, a reflex cascade that includes both RPR and a treponema-specific assay should be utilized, such as Treponema pallidum (Syphilis) Screening [place] (902225) or Rapid Plasma Reagin (RPR) Test With Reflex to Quantitative RPR and Confirmatory Treponema pallidum Antibodies (542726).Performed By: #### RPRQ ####[facility] Ggig[address]cp[address] [place], [place] [address]Dr. Nolvia Ruvalcaba CHLAMYDIA/GONOCOCCUS THERON (SWAB/URINE/PAPon 82-35-2914Rxszjjtwc trachomatis, THERON NegativeNormalNegativeUniversity Hospitals Geneva Medical CenterComment on above:Performed By: #### CT/NGNA ####[facility] [address] [place], [place] [address]DrDinorah RuvalcabaNeisseria gonorrhoeae, NAANegativeNormalNegativeUniversity Hospitals Geneva Medical CenterComment on above:Performed By: #### CT/NGNA ####[facility] [address] [place], [place] [address]DrDinorah Ruvalcaba VAGINITIS/VAGINOSIS DNA PROBEon 62-78-3566Zgvnrei speciesNegativeNormalNegative [facility] Geneva Medical CenterComment on above:Performed By: #### HIV12 #### [facility] [address] [place] [address] Dr. Nolvia Hoopererella vaginalisNegativeNormalNegativeUniversity Hospitals [facility] Center Comment on above:Performed By: #### HIV12 #### [facility] [address] [place] [address] Dr. Nolvia RuvalcabaTrichomonas vaginalisNegativeNormalNegativeUniversity Hospitals [facility] Center Comment on above:Performed By: #### HIV12 #### [facility] [address] [place] [address] Dr. Nolvia RuvalcabaHEP B SURFACE ANTIGEN SCREENon 61-79-0590UBlNj ScreenNegative NormalNegativeKnox Community Hospitalment on above:Performed By: #### HBSANS ####[facility] Kdrjunnumu[address] [place], [place] [address]Dr. Nolvia RuvalcabaHEPATITIS C VIRUS AB W/ REFLEX QUANTon 23-22-1911GKV AB<0.1Normal 0.0-0.9The [place] [facility] on above:Performed By: #### HCVPCRR ####[facility] [address]ecfumszci[address] [place], [place] [address]Dr. Nolvia RuvalcabaInterpretation:CommentNormalThe [place] [facility] on above: Result Comment: Negative Not infected with HCV, unless recent infection is suspected or other evidence exists to indicate HCV infection.Performed By: #### HCVPCRR ####[facility] [address] [place], [place] [address]Dr. Nolvia RuvalcabaHIV 1 AND 2 WITH REFLEXon 73-92-9676HAF Screen 4th Generation wRfx Non-ReactiveNormalNon ReactiveThe [place] [facility] on above:Result Comment: HIV Negative HIV-1/HIV-2 antibodies and HIV-1 p24 antigen were NOT detected. There is no laboratory evidence of HIV infection.Performed By: #### HIV12 #### [facility] [address] [place] [address] Dr. Nolvia RuvalcabaRPBarrett QUANTon 29-57-5238Eetzq Plasma Reagin, QuantNon-Reactive NormalNonRea<1:1The [place] [facility] on above:Performed By: #### RPRQ ####[facility] [address]hsfn[address] [place], [place] [address]Dr. Nolvia RuvalcabaRUBELLA AB IGGon 61-05-2232Tjginis Antibodies, IgG1.50 indexNormal Immune >0.99The [place] [facility] on above:Result Comment: Non-immune <0.90 Equivocal 0.90 - 0.99 Immune >0.99Performed By: #### HIV12 #### [facility] [address] [place] [address] Dr. Nolvia RuvalcabaCBC AUTO DIFFon 75-73-3964JMYK #0.0 103/ulNormal0.0-0.1[facility] Geneva Medical CenterComment on above:Performed By: #### HIV12 #### [facility] [address] [place] [address] Dr. Nolvia RuvalcabaBasophils/100 WBC (Bld)0.3 %Normal0.2-2.0[facility] Comment on above:Performed By: #### HIV12 #### [facility] [address] [place] [address] Dr. Nolvia Geiger #0.1 103/ulNormal0.0-0.7The [facility] HospitalComment on above: Performed By: #### HIV12 #### [facility] [address] [place] [address] Dr. Nolvia Trivediosinophils/100 WBC (Bld)1.4 %Normal0.9-7.0[facility] Comment on above:Performed By: #### HIV12 #### [facility] [address] [place] [address] Dr. Nolvia Trivedirythrocyte distribution width (RBC) [Ratio]12.4 %Sfrzpk93.0-15.0 [facility] Geneva Medical CenterComment on above:Performed By: #### HIV12 #### [facility] [address] [place] [address] Dr. Nolvia RuvalcabaHematocrit (Bld) [Volume fraction]40.7 %Naqbel86.0-48.0[facility] Geneva Medical CenterComment on above:Performed By: #### HIV12 #### [facility] [address] [place] [address] Dr. Nolvia RuvalcabaHemoglobin (Bld) [Mass/Vol]13.5 g/yNRnoayh02.0-16.0[facility] Medical CenterComment on above:Performed By: #### HIV12 #### [facility] [address] [place] [address] Dr. Nolvia Jiménez #0.04 10e3/ulCritically high0.00-0.03[facility] Comment on above:Performed By: #### HIV12 #### [facility] [address] [place] [address] Dr. Nolvia Jiménez %0.4 %Normal0.0-0.5The [facility] HospitalComment on above: Performed By: #### HIV12 #### [facility] [address] [place] [address] Dr. Nolvia Brewer #1.3 103/ulNormal1.2-3.8The [facility] HospitalComment on above:Performed By: #### HIV12 #### [facility] [address] [place] [address] Dr. Nolvia Pintohocytes/100 WBC (Bld)13.8 %Critically low20.5-60.0The [facility] HospitalComment on above:Performed By: #### HIV12 #### [facility] [address] [place] [address] Dr. Nolvia CalderonUAL DIFF REQNONormalThe [facility] HospitalComment on above: Performed By: #### HIV12 #### [facility] [address] [place] [address] Dr. Nolvia Fraire (RBC) [Entitic mass]30.1 ngKjytmi75.7-34.0The [facility] HospitalComment on above:Performed By: #### HIV12 #### [facility] [address] [place] [address] Dr. Nolvia Verdin (RBC) [Mass/Vol]33.2 g/pKFugutn07.9-35.2The [facility] HospitalComment on above:Performed By: #### HIV12 #### [facility] [address] [place] [address] Dr. Nolvia Verdin (RBC) [Entitic vol]90.8 nMTklwoe50.0-99.0The [facility] HospitalComment on above:Performed By: #### HIV12 #### [facility] [address] [place] [address] Dr. Nolvia De Jesus #0.4 103/ulNormal0.3-0.8The [facility] HospitalComment on above:Performed By: #### HIV12 #### [facility] [address] [place] [address] [address] Nolvia Tothocytes/100 WBC (Bld)4.2 %Normal1.7-12.0The [facility] Comment on above:Performed By: #### HIV12 #### [facility] [address] [place] [address] Dr. Nolvia AnneUT #7.5 103/ulCritically high1.4-6.5The [facility] Comment on above:Performed By: #### HIV12 #### [facility] [address] [place] [address] Dr. Nolvia Anneutrophils/100 WBC (Bld)79.9 %Critically high43.0-75.0The [facility] HospitalComment on above:Performed By: #### HIV12 #### [facility] [address] [place] [address] Dr. Nolvia RuvalcabaPlatelet mean volume (Bld) [Entitic vol]9.3 fLCritically low 9.5-13.5The [facility] HospitalComment on above:Performed By: #### HIV12 #### [facility] [address] [place] [address] Dr. Nolvia RuvalcabaPLT322 103/veXyqaxr615-874Nch [facility] HospitalComment on above: Performed By: #### HIV12 #### [facility] [address] [place] [address] Dr. Nolvia RuvalcabaRBC4.48 106/ulNormal4.20-5.40The [facility] HospitalComment on above:Performed By: #### HIV12 #### [facility] [address] [place] [address] Dr. Nolvia RuvalcabaWBC9.4 103/ulNormal4.0-11.0The [facility] HospitalComment on above: Performed By: #### HIV12 #### [facility] [address] [place] [address] Dr. Nolvia FontenotLTUSHA URINEon 12-19-2250QRJNQAM URINECulture Observations: LIGHT GROWTH OF MIXED GENITAL SPENCER. NO POTENTIAL PATHOGENS SEEN.NormalThe [facility] HospitalComment on above:Performed By: #### URCX ####[facility] [address] [place], [place] [address]YvDr. Nolvia Ruvalcaba GLYCOHEMOGLOBIN A1Con 81-37-9236CZH RECOMMENDATIONADA THERAPEUTIC TARGET 6.0 - 7.0 ACTION SUGGESTED > 7.0Brown Memorial HospitalComment on above:Performed By: #### A1C #### [facility] [address] [address] [address] Nolvia RuvalcabaGlucose [Mass/Vol]108 mg/dLNoSt. John of God HospitalComment on above:Performed By: #### A1C #### [facility] [address] [place] [address] [address] Nolvia RuvalcabaHbA1c (Bld) [Mass fraction]5.4 %Normal<=6.0The [facility] Comment on above:Performed By: #### A1C #### [facility] [address] [address] [address] Nolvia RuvalcabaTYPE AND SCREENon 62-70-1322GWQR AND SCREENNegativeNoSt. John of God HospitalComment on above:Performed By: #### TNS ####[facility] [address] [address]DrAngel RuvlacabaUS PREG TVon 73-57-5875FA PREG TVEXAMINATION: US PREG TV HISTORY: Missed [...] Electronically authenticated by: FRANCIA CRENSHAW Date: 2021-03-27 09:39[facility] Vital Signs Date TimeVital SignValuePerforming BawlshxifUycyytof30-62-9897 14:04-0500Body mass index (BMI) [Ratio]29.95 kg/m2Cindy Thomas PA Work Phone: [phone] [place], [place] [address]Xxffdpjwiq36-91-8472 14:04-0500Body typtvn05.36 kgAmy Ricardo PA Work Phone: [phone] [place], [place] [address]Cmkqzkzsnz26-63-5137 14:04-0500Diastolic blood kkseaunl61 mm[Hg]Cindy Thomas PA Work Phone: [phone] [place], [place] [address]Jtjqognplj29-98-3101 14:04-0500Systolic blood zooquuyt952 mm[Hg]Cindy Thomas PA Work Phone: [phone] [place], [place] [address]Lsjbvarowp63-67-5608 14:18-0400Body mass index (BMI) [Ratio]29.56 kg/j0Reqaf Mary Lou DO Work Phone: [phone] [place], [place] [address]Uvjizoizya13-07-2098 14:18-0400Body .18 kgCorey Mary Lou DO Work Phone: [phone] [place], [place] [address]Zwikavhpkq97-15-0436 14:18-0400Diastolic blood rggezyjy30 mm[Hg]Jose Mary Lou DO Work Phone: [phone] [place], [place] [address]Qhkadzcswm65-72-6770 14:18-0400Systolic blood ogcfoesv536 mm[Hg]Jose Mary Lou DO Work Phone: [phone] [place], [place] [address]Vnknzprsdu73-55-9723 14:32-0400Body mass index (BMI) [Ratio]29.08 kg/r7NojqlxiqLydia Kelly HIGH SCHOOL ASSISTANT PRINCIPAL Work Phone: [phone] [place], [place] [address]Ujblddsnac45-96-1679 14:32-0400Body .75 kgLydia Flanaganly HIGH SCHOOL ASSISTANT PRINCIPAL Work Phone: [phone] [place], [place] [address]10-07-2025 14:32-0400Diastolic blood ovsupanx15 mm[Hg]Lydia Flanaganly HIGH SCHO[employer] ASSISTANT PRINCIPAL Work Phone: [phone] [place], [place] [address]Bqqsubjgnh12-76-1145 14:32-0400Systolic blood uanbqdgx253 mm[Hg]Lydia Kelly H[employer] ASSISTANT PRINCIPAL Work Phone: [phone] [place], [place] 2901409-22-2025 10:11-0400Body mass index (BMI) [Ratio]28.89 kg/x2Mvvza Mary Lou DO Work Phone: [facility] NetworkBsqstfejpm83-35-3085 10:11-0400Body rujdmk92.18 kgCorey Mary Lou DO Work Phone: [facility] NetworkAvaygdptdt47-44-0763 10:11-0400Diastolic blood snsdeeqa35 mm[Hg]Jose Mary Lou DO Work Phone: [phone] [place], [place] [address]Qmnxejlyil67-43-5803 10:11-0400Systolic blood nutjqjky792 mm[Hg]Jose Mary Lou DO Work Phone: [phone] [place], [place] [address]Kskzfickxu04-31-0055 15:02-0400Body mass index (BMI) [Ratio]28.74 kg/m2Cindy Willisadelia ZHU Work Phone: [facility] NetworkOlekywbnif27-44-3077 15:02-0400Body .73 kgCindy Willisadelia ZHU Work Phone: [phone] [place], [place] [address]Urjptpvrjf55-96-2373 15:02-0400Diastolic blood bwlehxkz32 mm[Hg]Cindy Willisey PA Work Phone: [phone] [place], [place] [address]Ssqddcemjo15-69-7417 15:02-0400Systolic blood imuasylu205 mm[Hg]Cinyd Willisey PA Work Phone: [facility] NetworkYucyocltcu07-38-8232 15:04-0400Body mass index (BMI) [Ratio]28.28 kg/i8Obkga Mary Lou DO Work Phone: [phone] [place], [place] [address]Uimiasteqt13-19-8963 15:04-0400Body gmebwr74.37 kgCorey Mary Lou DO Work Phone: [phone] [place], [place] [address]Kvlbebewln09-15-9379 15:04-0400Diastolic blood mm[Hg]Jose Mary Lou DO Work Phone: [phone] [place], [place] [address]Lhaopvmrfz34-38-1007 15:04-0400Systolic blood mm[Hg]Jose Mary Lou DO Work Phone: [phone] [place], [place] [address]Lupkchamnd07-06-3599 15:37-0400Body mass index (BMI) [Ratio]27.06 kg/m2Amy Ricardo PA Work Phone: [facility] NetworkClzivolwhb80-70-9119 15:37-0400Body uxspqi40.74 kgCindy Thomas PA Work Phone: [facility] NetworkPceucksuhp86-54-1753 15:37-0400Diastolic blood yhsmwgxg83 mm[Hg]Cindy Thomas PA Work Phone: [facility] NetworkWkjmgdbzfb90-29-9916 15:37-0400Systolic blood mm[Hg]Cindy Thomas PA Work Phone: [facility] NetworkJqvkeuwjml39-81-3077 09:48-0400Body mass index (BMI) [Ratio]26.72 kg/l4Xzgtn Mary Lou DO Work Phone: [facility] NetworkWyfcemrsge87-59-2273 09:48-0400Body sthzru93.72 kgCorey Mary Lou DO Work Phone: [facility] NetworkEcvspmonpd27-03-2671 09:48-0400Diastolic blood hzfqftep26 mm[Hg]Jose Mary Lou DO Work Phone: [facility] NetworkBwhgcdabjt15-45-2978 09:48-0400Systolic blood xnjdiqcp654 mm[Hg]Jose Mary Lou DO Work Phone: [facility] NetworkNdxalghdfp69-78-6428 11:15-0500Body .72 cmMatthew Rosy Other [employer] Other 01-11-2024 11:15-0500Body mass index (BMI) [Ratio] 26.76 kg/s6Lygyxgs Rosy Other [employer] Other 01-11-2024 11:15-0500Body nibdgt66.83 kgMatthew Rosy Other [employer] Other 01-11-2024 11:15-0500Diastolic blood vcwmuvxl27 mm[Hg] Jenn Rosy Other [employer] Other 01-11-2024 11:15-0500Respiratory rate16 /minMikaelsyedsunny Rosy Other [employer] Other 01-11-2024 11:15-3530RqY8% (BldA) [Mass fraction]99 % Jenn Rosy Other [employer] Other 01-11-2024 11:15-0500Systolic blood vuyvvyct951 mm[Hg] Jnen Gallegos Other [employer] Other 03-23-2023 14:45-0400Body dktegs826.72 cmJenn Gallegos Other [employer] Other 03-23-2023 14:45-0400Body mass index (BMI) [Ratio] 27.85 kg/e7VxcpklqJenn Gallegos Other [employer] Other 03-23-2023 14:45-0400Body zmybxr53.1 kgJenn Gallegos Other [employer] Other 03-23-2023 14:45-0400Diastolic blood wbzoivjr78 mm[Hg] Jenn Rosy Other [employer] Other 03-23-2023 14:45-0400Respiratory rate16 /minRigobertosean Gallegos Other [employer] Other 03-23-2023 14:45-3979DvE3% (BldA) [Mass fraction]99 % Jenn Gallegos Other [facility] [employer] Other 03-23-2023 14:45-0400Systolic blood axwjvqgk637 mm[Hg] Jenn Rosy Other [employer] Other 12-29-2022 16:30-0500Body uyhqya098.72 cmRicheun Natalie Other [employer] Other 12-29-2022 16:30-0500Body mass index (BMI) [Ratio] 28.64 kg/o3SozefzyMike Estrada Other [employer] Other 12-29-2022 16:30-0500Body gabquh66.46 kgRobereun Natalie Other [employer] Other 12-29-2022 16:30-0500Diastolic blood skrjokwa00 mm[Hg] Mike Nileansley Other [employer] Other 12-29-2022 16:30-0500Respiratory rate16 /minRicheun Estrada Other [employer] Other 12-29-2022 16:30-4257UiM4% (BldA) [Mass fraction]97 % Mike Nileansley Other [employer] Other 12-29-2022 16:30-0500Systolic blood krsbgpvy290 mm[Hg] Mike Dowdks Other [employer] Other 12-29-2021 16:15-0500Body abqxut738.72 cmMasean Gallegos Other [employer] Other 12-29-2021 16:15-0500Body mass index (BMI) [Ratio] 27.37 kg/i0VgscxneJenn Gallegos Other [employer] Other 12-29-2021 16:15-0500Body kacjer81.65 kgJenn Gallegos Other [employer] Other 12-29-2021 16:15-0500Diastolic blood wcmdahwn38 mm[Hg] Jenn Gallegos Other [employer] Other 12-29-2021 16:15-0500Respiratory rate16 /minMasean Gallegos Other [employer] Other 12-29-2021 16:15-6286PoV7% (BldA) [Mass fraction]99 % Jenn Gallegos Other [employer] Other 12-29-2021 16:15-0500Systolic blood mm[Hg] Jenn Gallegos Other [employer] Other Encounters Encounter DateEncounter TypeCare ProviderFacilityStart: 12-20-2024 End: 16-74-4230Xgmozittk Result EncounterCorey Mary Lou DO Work Phone: noms External Department UnsolicitedStart: 12-20-2024 End: 69-28-7494Uuxiihqtx Result EncounterCorey Mary Lou DO Work Phone: noms External Department UnsolicitedStart: 12-17-2024 End: 67-25-1096Snscyn flowsheetCindy ZHU Work Phone: [facility] OBGYNStart: 12-17-2024 End: 16-07-1691Embkvv Montez ZHU Work Phone: [facility] OBGYNStart: 12-17-2024 End: 28-23-3208Gmmgkket flow sheetCindy ZHU Work Phone: N[facility]celmo OBGYNComment on above:Third trimester ([facility] 34 weeks gestation of ([facility])Start: 12-17-2024 End: 44-12-9946lngtbpvbsdFHP RICARDONot AvailableStart: 12-04-2024 End: 17-52-1187Wtghnfxx flow sheetCorey Mary Lou DO Work Phone: N[facility] Dunnellon OBGYNComment on above:32 weeks gestation of ([facility]); Third trimester ([facility]); Anemia, unspecified typeStart: 12-04-2024 End: 93-47-0962yywbfyturxJAQDN FAZIONot AvailableStart: 11-20-2024 End: 38-00-0991Hrhtcrhp flow sheetLydia Kelly NP Work Phone: N[facility]celmo OBGYNComment on above: size inconsistent with dates ([facility]) (Primary Dx); Third trimester ([facility]); 30 weeks gestation of ([facility])Start: 11-20-2024 End: 62-79-4015cytaubfvjdDEVJJGCD EBERLYNot AvailableStart: 11-20-2024 End: 76-44-9368Hnuybl flowsheetLydia Kelly HIGH SCHOOL ASSISTANT PRINCIPAL Work Phone: [facility] OBGYNStart: 11-20-2024 End: 75-54-6317Mmfvsz flowsheetLydia Kelly HIGH SCHOOL ASSISTANT PRINCIPAL Work Phone: [facility] OBGYNStart: 11-05-2024 End: 07-61-7906Fdvpxn flowsheetCorey Mary Lou DO Work Phone: [facility] OBGYNStart: 11-05-2024 End: 82-97-3323Dnpbtn flowsheetCorey Mary Lou DO Work Phone: [facility] OBGYNStart: 11-05-2024 End: 86-42-8854Pdvfmlxdn Result EncounterLydia Kelly HIGH SCHOOL ASSISTANT PRINCIPAL Work Phone: NODZ External Department UnsolicitedStart: 11-05-2024 End: 71-19-3682Mkepdppy flow sheetCorey Mary Lou DO Work Phone: [facility] Ancelmo OBGYNComment on above:Anemia, unspecified type (Primary Dx); Third trimester ([facility]); 28 weeks gestation of ([facility])Start: 11-05-2024 End: 97-82-5431dhcjuwvscqHBBKT FAZIONot AvailableStart: 10-24-2024 End: 40-17-2927Bpairros flow Eric ZHU Work Phone: [facility] OBGYNComment on above:26 weeks gestation of ([facility]); Second trimester ([facility]); Anemia during in second trimester ([facility])Start: 10-24-2024 End: 25-76-0553gsiarmcfeiWNV RAMEYNot AvailableStart: 10-24-2024 End: 15-18-7188Vcfsat Montez ZHU Work Phone: [facility] OBGYNStart: 10-24-2024 End: 46-45-4325Zlbgwy Montez ZHU Work Phone: [facility]elmo OBGYNStart: 10-08-2024 End: 63-58-3404Lhhmrbsuq Result EncounterCorey Mary Lou DO Work Phone: noms External Department UnsolicitedStart: 10-08-2024 End: 41-28-6253Mopdgjfbd Result EncounterCorey Mary Lou DO Work Phone: noms External Department UnsolicitedStart: 09-26-2024 End: 63-60-1093Qeoqqkpp flow sheetCorey Mary Lou DO Work Phone: [facility] OBGYNComment on above:Diabetes mellitus screening; Second trimester ([facility]); 22 weeks gestation of ([facility])Start: 09-26-2024 End: 85-73-3210ypvtdqseowVUDBW FAZIONot AvailableStart: 09-26-2024 End: 28-31-1676Ahhmsm flowsheetCorey Mary Lou DO Work Phone: [facility] OBGYNStart: 09-26-2024 End: 83-38-3185Yxcvtc flowsheetCorey Mary Lou DO Work Phone: [facility] OBGYNStart: 09-13-2024 End: 52-83-4794qryobmugxdMAT RICARDONot AvailableStart: 08-29-2024 End: 77-29-2296Famfnoo encounter procedureCindy ZHU Work Phone: noms HealthcareStart: 08-29-2024 End: 40-52-0599Oxsynmpa preventive med est patient 18-39 yrsCindy ZHU Work Phone: noms BCP OBComment on above:Well woman exam with routine gynecological exam; Screening, , for anatomic survey ([facility]); Exposure to STD; Need for maternal serum alpha-protein (MSAFP) screening ([facility]); Second trimester ([facility]); 18 weeks gestation of ([facility])Start: 08-29-2024 End: 10-73-1101vhwlwauzomPKU RICARDONot AvailableStart: 08-29-2024 End: 88-18-6365Syaqvi flowsTiara ZHU Work Phone: NOQS BCP OBStart: 08-29-2024 End: 59-79-9169Qbzpgh Montez ZHU Work Phone: NOMS BCP OBStart: 08-29-2024 End: 43-56-1664Bisejnrgr Result EncounterCindy ZHU Work Phone: noMS External Department UnsolicitedStart: 08-29-2024 End: 85-32-3310Rbhziknt Result EncounterAmy Ricardo PA Work Phone: noms External Department UnsolicitedStart: 08-02-2024 End: 05-14-2714Svxskr flowsheetCorey Mary Lou DO Work Phone: noms BCP OBStart: 08-02-2024 End: 68-03-8115Sofmsw flowsheetCorey Mary Lou DO Work Phone: noms BCP OBStart: 08-02-2024 End: 68-76-4654Kcmqafan flow sheetCorey Mary Lou DO Work Phone: noms BCP OBComment on above:Second trimester ([facility]); 14 weeks gestation of ([facility])Start: 08-02-2024 End: 02-90-5737ihatwlolfrOSICD FAZIONot AvailableStart: 07-24-2024 End: 11-80-0856Pswyngvhm Result EncounterCorey Mary Lou DO Work Phone: noms External Department UnsolicitedStart: 07-24-2024 End: 20-96-3372Rpopfympa Result EncounterCorey Mary Lou DO Work Phone: noms External Department UnsolicitedStart: 07-05-2024 End: 62-27-6687nwzktxbvjsSHNFE FAZIONot AvailableStart: 02-24-2023 End: 95-35-1724wuquugecmyDlsbwlb Widmer Other [employer] Other Start: 64-01-2004Ascicnodq for general adult medical examination without abnormal findingsJenn GallegosSAN [facility] Julio Start: 28-63-9651Scfycjwp preventive med est patient 18-39 yrsMattjasmin GallegosSAN [facility] Family Medicine [place]Start: 05-06-2022 End: 68-30-0340fxpowhnmboWxfymja Widmer Other [employer] Other Start: 06-11-5788Enzfhu outpatient visit 15 minutes Jenn WilsonherminioSaugus General Hospital [facility]ands[facility] coltonyStart: 03-10-2022 End: 13-10-6723skjuqlcsiaTZUXIHE WIDHERMINIOFacility:V3Helhr: 02-11-2022 End: 64-35-5660rrswfskclwFrpskwl Binks Other [facility] [employer] Other Start: 60-89-8857Qxpzbexqz for general adult medical examination without abnormal findingsThedacare Medical Center [facility] [place] Start: 11-35-6865Fnvzhbby preventive med est patient 18-39 yrsThedacare Medical Center [facility] CamiyStart: 12-10-2021 End: 24-54-8365wxsovdcftjMHWPQLR ROSYFacility:L3Amjwa: 11-03-2021 End: 56-75-1719Qirqibnvdb and management of inpatientMATTJASMIN GALLEGOSFacility:H1 Start: 29-10-7113Tyilyvinb for preprocedural laboratory examinationDR JOSE FAGAYLACleveland Clinic Akron Generaltart: 10-31-2021 End: 54-05-8755nprnnxnnvuHJIOGVZ CASEYMERFacility:I1Mjkio: 10-31-2021 End: 73-29-8081Ysgpdckle for preprocedural laboratory examinationMATTSYEDW ROSY Facility:S5Flxsq: 10-14-2021 End: 51-77-2634mytqmamjwmVGMIDIF CASEYMERFacility:M8Vwptt: 08-28-2021 End: 56-17-1919qfvqotlffqIOSSEVQ WIDMERFacility:O3Jqwqb: 08-18-2021 End: 58-99-9565quyrndgdbrKH JOSE FAZIOFacility:H4Bmbii: 07-30-2021 End: 78-83-2817zvopffdynuQB JOSE FAZIOFacility:L9Ihzha: 34-21-2555wloisjlajaOH JOSE FAZIOFacility:F7Sltkm: 07-14-2021 End: 65-13-0245cpdljsqnjfPXYYXMLV EBERLYFacility:Q4Zndbk: 06-18-2021 End: 96-88-5631glbqsfdpenUTHXYAO WIDMERFacility:M2Pzvnt: 05-29-2021 End: 97-38-3939awykovvduaZLNYAKO WIDMERFacility:T6Ppmla: 05-25-2021 End: 96-05-5928vaoyapwmlhJJ JOSE FAZIOFacility:R9Bqmyc: 04-27-2021 End: 34-08-6432fhixbdlkwnIPNLJBO WIDMERFacility:A9Tcxox: 03-27-2021 End: 87-73-0043yvhxvguxjbXR JOSE FAZIOFacility:G5Gqwyj: 02-11-2021 End: 56-78-1590tvaxvfjvhlHezqudb Rosy Other [facility] [employer] Other Start: 43-13-0227Wraedfcwa for general adult medical examination without abnormal findingsLyons [facility] Medical Center Start: 59-31-1056Qpsgohjh preventive med est patient 18-39 yrsMattGlendale Research HospitalyStart: 05-96-8585Dsyqbsira encounterMattCentral Valley Medical Centerart: 01-03-2018 End: 61-28-5261Wodjqqj encounter procedureGosia GarciasFacility:[facility] Procedures DateProcedureProcedure DetailPerforming ClinicianStart: 32-83-5842YMZ UA (CLEAN/CATCH) APPLICATIONS ENGINEER/MICRO IF IND.Jose Mary Lou DO Work Phone: Start: 92-26-4371Dgtks dip stick/tablet rgnt non-auto w/o micrscpAmy Ricardo PA Work Phone: Start: 06-75-5620Fgcuz dip stick/tablet rgnt non-auto w/o micrscpCorey Mary Lou DO Work Phone: Start: 69-01-1035Fbxuk dip stick/tablet rgnt non-auto w/o micrscpKrbulmaro Kelly HIGH SCHOOL ASSISTANT PRINCIPAL Work Phone: Start: 93-10-8179RCA CBC WITH AUTO DIFFKristina Robin HIGH SCHOOL ASSISTANT PRINCIPAL Work Phone: Start: 96-55-0577Tjtki dip stick/tablet rgnt non-auto w/o micrscpCorey Mary Lou DO Work Phone: Start: 60-59-7522Xajgk dip stick/tablet rgnt non-auto w/o micrscpAmy Ricardo ZHU Work Phone: Start: 34-21-4393CGP CBC WITH AUTO DIFFCorey Mary Lou DO Work Phone: Start: 36-76-7543Zkomb dip stick/tablet rgnt non-auto w/o micrscpCorey Mary Lou DO Work Phone: Start: 23-17-6565NXZLONSVI VAGINITIS (HTRX)Cindy ZHU Work Phone: Start: 04-88-6496Poaci dip stick/tablet rgnt non-auto w/o micrscpAmy Ricardo ZHU Work Phone: Start: 54-42-5187ZQG,APTIMA HPV,AGE GDLNAmy Ricardo ZHU Work Phone: Start: 26-92-8802Xxvaizjvjjr observation [Identifier] in Cervix by Cyto stainCorey Mary Lou DO Work Phone: Start: 74-99-7452Dhnea dip stick/tablet rgnt non-auto w/o micrscpCorey Mary Lou DO Work Phone: Start: 73-55-0948FID CBC WITH AUTO DIFFCorey Mary Lou DO Work Phone: Start: 39-15-0900JMT TESTCorey Mary Lou DO Work Phone: Start: 57-20-9914Lslntmqsrwn observation [Identifier] in Cervix by Cyto stainCorey Mary Lou DO Work Phone: Start: 10-43-0857Dfpbebndam of Products of Conception, Low Cervical, Open ApproachMATTHEW ROSY Plan of Treatment DateCare ActivityDetailAuthorStart: 48-80-4450Jdvffnepb for malignant neoplasm of cervixNOMS HealthcareStart: 64-56-5505Pqmenyhui for malignant neoplasm of cervixNOMS HealthcareStart: 12-26-2024 End: 51-97-9389Yvrlnxg encounter /12/2025 3:00 PM EST Routine [facility] [address] [place], [id number] Jose Barreto DO [address] [place] [address] [facility] OBGYNStart: 12-17-2024 End: 62-69-0849Rxhyhjf encounter procedureNOMS Dunnellon OBGYNComment on above: ArrivedStart: 11-20-2024 End: 98-42-7364Ueqezwv encounter procedureNOMS Ancelmo OBGYNComment on above: ArrivedStart: 11-20-2024 End: 10-21-5955OU for pregnancyUS OB follow up transabdominal approach Imaging Routine size inconsistent with dates ([facility]) Expected: 11/20/2024, Expires: 03/23/2025[facility] Work Phone: comment on above:Expected: 11/20/2024, Expires: 03/23/2025Start: 11-05-2024 End: 50-54-3973Srsevxu encounter procedureNOMS Dunnellon OBGYNComment on above: ArrivedStart: 10-24-2024 End: 76-72-3988Boeikwf encounter procedureNOMS Dunnellon OBGYNComment on above: ArrivedStart: 91-96-3222KPVXR-19 Vaccine ( season)COVID-19 Vaccine ()NOMS HealthcareStart: 13-19-3756Pyomyerqm vaccinationNOMS HealthcareStart: 09-26-2024 End: 28-56-7538Fffblgr encounter procedureNOMS BCP OBComment on above:Arrived Start: 09-26-2024 End: 19-14-2361ZGG panel - Blood by Automated countCBC Lab Routine Diabetes mellitus screening Expected: 09/26/2024 (Approximate), Expires: 09/26/2025[facility] Work Phone: comment on above:Expected: 09/26/2024 (Approximate), Expires: 09/26/2025Start: 09-26-2024 End: 07-66-1173Utojszwkihb of glucose 1 hour after glucose challenge for glucose tolerance testGlucose tolerance, 1 hour Lab Routine Diabetes mellitus screening Expected: 09/26/2024 (Approximate), Expires: 09/26/2025[facility] HealthcareComment on above:Expected: 09/26/2024 (Approximate), Expires: 09/26/2025Start: 09-13-2024 End: 19-70-9475Xckuvlpyneji / ancillary services sawfclbkfm12/31/2025 2:30 PM EDT Ancillary Procedure [facility] [address] [place] [place] [address] [facility] OBStart: 08-29-2024 End: 54-84-8421Wlqlpfp encounter nrninzgvv29/16/2025 3:30 PM EDT Routine [facility] [address] [place] [place] [address] Cindy Thomas PA [address] [place] [address] [place], [place] [id number] [facility]rivedS[facility] OBComment on above: ArrivedStart: 08-29-2024 End: 74-77-9840Kpqzy fetoprotein, maternalAlpha fetoprotein, maternal Lab Routine Need for maternal serum alpha-protein (MSAFP) screening ([facility]) Expected: 08/29/2024 (Approximate), Expires: 09/29/2024[facility] HealthcareComment on above:Expected: 08/29/2024 (Approximate), Expires: 09/29/2024Start: 08-29-2024 End: 99-01-9795SO for pregnancyUS OB 14+ weeks anatomy scan Imaging Routine Screening, , for anatomic survey ([facility]) Expected: 08/29/2024, Expires: 11/29/2024[facility] HealthcareComment on above:Expected: 08/29/2024, Expires: 11/29/2024Start: 08-02-2024 End: 87-56-9180Ynmvydd encounter procedureNOMS BCP OBComment on above:Arrived Start: 28-85-3105Khqtutcaa for malignant neoplasm of cervixHPV/CotestNOMS HealthcareCBC W Auto Differential panel - BloodCBC and differential Lab Routine Anemia, unspecified type Ordered: 11/05/2024[facility] Work Phone: comment on above:Ordered: 11/05/2024HLAMYDIA TRACHOMATIS (GENITO/STI)CHLAMYDIA TRACHOMATIS (GENITO/STI) Lab Routine Exposure to STD Ordered: 08/29/2024[facility] HealthcareComment on above:Ordered: 08/29/2024 Cytology Cervical or vaginal smear or scraping studyPap Smear Pathology and Cytology Routine Well woman exam with routine gynecological exam Ordered: [facility] Healthcare Work Phone: comment on above:Ordered: 08/29/2024Human papilloma virus DNA [Presence] in Unspecified specimen by Probe with amplificationHPV DNA probe, amplified Microbiology Routine Well woman exam with routine gynecological exam Ordered: 08/29/2024[facility] HealthcareComment on above:Ordered: 08/29/2024 Neisseria gonorrhoeae DNA [Presence] in Unspecified specimen by THERON with probe detectionNeisseria gonorrhea DNA probe, direct Lab Routine Exposure to STD Ordered: 08/29/2024[facility] HealthcareComment on above:Ordered: 08/29/2024 SURESWAB(R) ADVANCED VAGINITIS PLUS, TMASURESWAB(R) ADVANCED VAGINITIS PLUS, TMA Pathology and Cytology Routine Exposure to STD Ordered: 08/29/2024[facility] HealthcareComment on above:Ordered: 08/29/2024 Immunizations Immunization DateImmunizationNotesCare EywtqcehDhuqmqzi41-31-7199VHWZW-34 Vaccine Pfizer - Documentation Purposes OnlyMasean Gallegos Other [employer] Other 02-435772-77-5097WVPVC-54 Vaccine Pfizer - Documentation Purposes OnlyMasean Gallegos Other [employer] Other 10-14-238636-99-2833qegwheiuc, injectable, quadrivalent, preservative freeMattsyedw Rosy Other [facility] [employer] Other 10-14-558914-63-6760pppcbzbwf virus vaccine, unspecified formulationJose Barreto DO Work Phone: [facility] Payers DatePayer CategoryPayerPolicy [id number] [facility] ..[id number] 2023Medicaid (Managed Care)[place] [id number] 39-94-1508Wcpsxnq Health Evemxvvgp40114076155-36-5016Ajbg-hvf95-99-6350Xjtoick [id number] .1.929978.3.579.2.79903-79-4826Flbvcbe7094133 2.16.840.1.162505.3.579.2.64753-69-8742Utukghe8994903 2.16.840.1.393461.3.579.2.20393-82-7436Bxybxqe3374633 2.16.840.1.748668.3.579.2.96733-77-1200Qcroktn1986411 2.16.840.1.961638.3.579.2.33418-33-2905Eyomvfk5790414 2.16.840.1.705194.3.579.2.82136-50-2510Yfxugva3927807 2.840.1.294627.3.579.2.35131-96-1166Hybklxy0217346 2.840.1.691263.3.579.2.83357-05-8456Gogscna4565068 2.840.1.738136.3.579.2.00134-26-6277Pqdzfzq4631675 2.840.1.953906.3.579.2.26407-71-5665Tyutgyy0993852 2.840.1.530898.3.579.2.28688-43-6458Aygugup7258021 2.840.1.439876.3.579.2.75745-41-3757Dbgvuvx5598408 2.840.1.096424.3.579.2.95488-40-2056Lfdaklb6148305 2.840.1.347240.3.579.2.79781-93-4226Lyqjliu2636683 2.16840.1.771872.3.579.2.13885-97-9100Fbazuiv25603224 2.16840.1.435107.3.579.2.499424-81-4234Qbxuutn02307305 2.0.1.537431.3.579.2.759234-94-1806Cndtzbu75094464 2.0.1.288891.3.579.2.400092-07-7966Jtixfeq61126475 2.160.1.704588.3.579.2.749769-48-2726Dgsuszc99486105 2.0.1.083429.3.579.2.070278-22-1532Ryxuegk31646501 2.0.1.925179.3.579.2.565631-58-4263Ylydwbt09309865 2.0.1.807007.3.579.2.223710-24-0496Xpyyltx53657563 2..1.281786.3.579.2.088333-91-6509Lscqmxz22727312 2..1.236919.3.579.2.713522-32-5605Uvockxu14308930 2..1.762280.3.579.2.593984-38-9461Pefhhnl5853382 2..1.483251.3.579.2.420692-47-6574Ryqyqgk9782686 2..1.083430.3.579.2.829454-93-0181GrpoCarrie Tingley HospitalTUG306W04797 2..2.690630.410019 [id number] [id number] Nrkvfbk70208 2..1.940026.3.579.2.531 Social History DateTypeDetailFacilityUnknown if ever smokedInnovent Biologics Other Sex Assigned At BirthIn[employer]ent Bi[employer] Other Tobacco smoking status NHISTobacco smoking consumption unknownCEN[facility] HealthcareStart: 80-31-0089VmvgrogaiRQHH HealthcareStart: 63-84-1548Viw assigned at birthNot on fileNortheast Missouri Rural Health NetworkStart: 94-18-6422Uvm FemaleNortheast Missouri Rural Health Network Clinical Notes 02-11-2021 to 12-17-2024 Note Date & FwhiXsynFvcvtcsp79-39-2094 History of Present illness Narrative* MARKO Phelps [...] was 05/08/2024. Assessment/Plan ICD-10-CM 1. Third trimester ([facility]) Z34.93 2. 34 weeks gestation of ([facility]) Z3A.34 Return OB: Patient presents today [...] behalf of: MARKO Phelps documented in this encounterNortheast Missouri Rural Health NetworkNhjbwouuwo54-54-8262 History of Present illness Narrative* Maribell Khan LPN - 12/04/2024 2:10 PM EDT Reason for [...] nursing note reviewed. Exam conducted with a accounting systems analyst present. Vitals: Estimated body mass index is 29.56 kg/m as calculated from the following: Height as of 07/14/23: 5' 8 . Weight as of this encounter: 194 lb 6.4 oz. BP: 120/60 Patient's last menstrual period was 05/08/2024. Assessment/Plan ICD-10-CM 1. 32 weeks gestation of ([facility]) Z3A.32 POCT urinalysis dipstick manually resulted 2. Third trimester ([facility]) Z34.93 POCT urinalysis dipstick manually resulted [...] of: Jose Barreto DO documented in this encounterNortheast Missouri Rural Health NetworkSfavaifmjt75-28-6797 History of Present illness Narrative* Lydia Kelly NP - 11/20/2024 2:30 PM EDT [...] Past Medical History: Diagnosis Date Allergies Asthma ([facility]) Genital warts 2011 Pelvic pain 2007 HISTORY [...] nursing note reviewed. Exam conducted with a accounting systems analyst present. Vitals: Estimated body mass index is 29.08 kg/m as calculated from the following: Height as of 07/14/23: 5' 8 . Weight as of this encounter: 191 lb 4 oz. BP: 122/60 Patient's last menstrual period was 05/08/2024. ASSESSMENT & PLAN ICD-10-CM 1. size inconsistent with dates ([facility]) O26.849 2. Third trimester ([facility]) Z34.93 POCT urinalysis dipstick manually resulted 3. 30 weeks gestation of ([facility]) Z3A.30 Return OB: Patient presents today [...] week for routine OB appointment. Documented by Lydia Kelly NP on behalf of: Lydia Kelly NP documented in this encounterNortheast Missouri Rural Health NetworkYtbvayhwza01-27-4630 History of Present illness Narrative* Lydia Kelly NP - 11/05/2024 10:00 AM EDT [...] D64.9 CBC and differential 2. Third trimester ([facility]) Z34.93 POCT urinalysis dipstick manually resulted 3. 28 weeks gestation of ([facility]) Z3A.28 Return OB: Patient presents today [...] week for routine OB appointment. Documented by Lydia Kelly NP on behalf of: Jose Barreto DO documented in this encounterNortheast [facility] Rural Health [id number] History of Present illness Narrative* MARKO Phelps [...] PLAN ICD-10-CM 1. 26 weeks gestation of ([facility]) Z3A.26 POCT urinalysis dipstick manually resulted 2. Second trimester ([facility]) Z34.92 POCT urinalysis dipstick manually resulted 3. Anemia during in second trimester ([facility]) O99.012 Return OB: Patient presents today [...] behalf of: MARKO Phelps documented in this encounterNortheast [place] [facility] Health [id number] History of Present illness Narrative* Maribell Khan [...] nursing note reviewed. Exam conducted with a accounting systems analyst present. Vitals: Estimated body mass index is 28.28 kg/m as calculated from the following: Height as of 07/14/23: 5' 8 . Weight as of this encounter: 186 lb. BP: 118/70 Patient's last menstrual period was 05/08/2024. ASSESSMENT & PLAN ICD-10-CM 1. Diabetes mellitus screening Z13.1 CBC Glucose tolerance, 1 hour CBC Glucose tolerance, 1 hour 2. Second trimester ([facility]) Z34.92 POCT urinalysis dipstick manually resulted 3. 22 weeks gestation of ([facility]) Z3A.22 Patient presents today for a routine obstetrics appointment. Patient is currently 22w5d with a Estimated Date of Delivery: 01/25/25. Pt given glucola and cbc orders to have obtained. Pt to return in 4 weeks Documented by Maribell Khan LPN on behalf of: Jose Barreto DO documented in this encounterNortheast [place] [facility] Health [id number] History of Present illness Narrative* MARKO Phelps [...] nursing note reviewed. Exam conducted with a accounting systems analyst present. Vitals: Estimated body mass index is 27.06 kg/m as calculated from the following: Height as of 07/14/23: 5' 8 . Weight as of this encounter: 178 lb. BP: 122/70 Patient's last menstrual period was 05/08/2024. ASSESSMENT & PLAN ICD-10-CM 1. Well woman exam with routine gynecological exam Z01.419 Pap Smear HPV DNA probe, amplified 2. Screening, , for anatomic survey ([facility]) Z36.89 US OB 14+ weeks anatomy scan 3. Exposure to STD Z20.2 SURESWAB(R) ADVANCED VAGINITIS PLUS, TMA CHLAMYDIA TRACHOMATIS (GENITO/STI) Neisseria gonorrhea DNA probe, direct 4. Need for maternal serum alpha-protein (MSAFP) screening ([facility]) Z36.1 Alpha fetoprotein, maternal Alpha fetoprotein, maternal 5. Second trimester ([facility]) Z34.92 6. 18 weeks gestation of ([facility]) Z3A.18 POCT urinalysis dipstick manually resulted [...] behalf of: MARKO Phelps documented in this encounterNortheast Missouri Rural Health [id number] History of Present illness Narrative* MARKO Phelps [...] ASSESSMENT & PLAN ICD-10-CM 1. Second trimester ([facility]) Z34.92 POCT urinalysis dipstick manually resulted 2. 14 weeks gestation of ([facility]) Z3A.14 Return OB: Patient presents today [...] Documented by MARKO Phelps on behalf of: Jose Barreto DO documented in this encounterNortheast Missouri Rural Health [id number] Evaluation note* Encounter Date Diagnosis Assessment Notes [...] persistent asthma without complication (ICD-10 - J45.40) [employer] Other 03-23-2023 Evaluation note* Encounter Date Diagnosis [...] would consider doing a tendon sheath injection. [employer] Other 12-29-2022 Evaluation note* Encounter Date Diagnosis [...] acute issue arises. Jan,nxiety (ICD-10 - F41.9) [employer] Other 09-20-2022 NoteOPERATIVE NOTE OPERATION DATE: 11/03/2021 PROCEDURE: Repeat low transverse section. PREOPERATIVE DIAGNOSIS: 1. Intrauterine 39 weeks. 2. Previous . POSTOPERATIVE DIAGNOSIS: 1. Intrauterine 39 weeks. 2. Previous . ANESTHESIA: Spinal with Duramorph. SURGEON: Jose Barreto D.O. BLEACHER LARD: JESSE Cruz URINE OUTPUT: Yellow and clear. [...] to the Recovery Room in stable condition.[facility] [id number] Note DISCHARGE SUMMARY DISCHARGE DATE: 11/13/2021 PRIMARY [...] pain free and no longer on narcotics.[facility] [id number] Evaluation note * Encounter Date Diagnosis Assessment [...] persistent asthma without complication (ICD-10 - J45.40) [employer] Other Evaluation noteNo InformationNortLifecare Hospital of [facility]ics[facility] [employer] Other Evaluation note* Diagnosis Second trimester ([facility]) state, incidental 14 weeks gestation of ([facility]) documented [facility] encounter [facility]* Diagnosis Well woman exam with routine gynecological exam Routine gynecological examination Screening, , for anatomic survey ([facility]) Encounter for anatomic survey Exposure to STD Need for maternal serum alpha-protein (MSAFP) screening ([facility]) Second trimester ([facility]) state, incidental 18 weeks gestation of ([facility]) documented [facility] this encounter [facility]* Diagnosis Diabetes mellitus screening Screening for diabetes mellitus Second trimester ([facility]) state, incidental 22 weeks gestation of ([facility]) documented [facility] this encounter [facility]* Diagnosis 26 weeks gestation of ([facility]) Second trimester ([facility]) state, incidental Anemia during in second trimester ([facility]) documented in this encounter [facility]* Diagnosis Anemia, unspecified type- Primary Third trimester ([facility]) state, incidental 28 weeks gestation of ([facility]) documented in this encounter [facility]* Diagnosis size inconsistent with dates ([facility])- Primary Third trimester ([facility]) state, incidental 30 weeks gestation of ([facility]) documented [facility] this encounter [facility]* Diagnosis 32 weeks gestation of ([facility]) Third trimester ([facility]) state, incidental Anemia, unspecified type documented in this encounter [facility]* Diagnosis Third trimester ([facility]) state, incidental 34 weeks gestation of ([facility]) documented in this encounter [facility] HealthcareHistory general Narrative - Reported* Type Description Date Medical History stomach issues Medical HistoryAsthmaMedical Historylow ironSurgical Historystomach surgery Surgical HistoryC sectionHospitalization Historychildbirths [employer] Other Summary Purpose Family History No Family History Records FoundNo Family History Records FoundNo Family History Records Found Advance Directives No Advanced Directives Records FoundNo Advanced Directives Records FoundNo Advanced Directives Records Found Additional Source Comments INFORMATION SOURCE (unrecogn ized section and content) DATE CREATED AUTHOR 03/20/2018 [facility] DATE CREATED AUTHOR AUTHOR'S ORGANIZ ATION 03/16/2022 [facility] DATE CREATED AUTHOR AUTHOR'S ORGANIZ ATION 12/18/2024 [facility] EPIC REASON FOR [...] BE BASED ON THE PRIMARY CLINICAL RECORDS. [facility] lmbang [facility]. provides no warranty or guarantee of the accuracy or completeness of information in this document.
--- OUTSIDE RECORDS SUMMARY | 2024-12-26 19:49 | XMS_ITS | Clinical Summary ---
Author Organization [facility] Address [address] [place] [address] Care Team Providers Care Public Health Sanitarian Technician Name Role Phone Unavailable Primary Care Provider Unavailabl e Allergies Active AllergyReactionsCriticalityNoted DateCommentsPenicillin G008/29/2024 Other Reaction(s): Unknown SrcrjnzaixqSflnFzi24/26/2024 Other Reaction(s): Unknown Sulfa WvkzwtyxciqYiquv67/26/2024 Other Reaction(s): Unknown Medications MedicationSigDispense QuantityRefillsLast FilledStart [...] 1 capsule by mouth Daily5Active Encounters DateTypeDepartmentCare AttdPmvxilfdkqn50/12/2025 3:00 PM ESTRoutine [facility] [address] [place] [address] [place] [phone] Jose Barreto DO Third trimester ([facility]); 35 weeks gestation of ([facility])11/12/2025Bamboo flowsheet [facility] [place] [address] Jose Barreto, 12/25/20248870Pkkemi46/06/2025linisync Result Encounter [facility] External Department Unsolicited Jose Barreto DO 12/17/2024 1:50 PM ESTRoutine [facility] [place] [address] Cindy Silva PA Third trimester ([facility]); 34 weeks gestation of ([facility])12/17/2024amboo flowsheet [facility] [address] Cindy Silva PA 12/17/20243339Xgtwlh95/21/2025 2:10 PM EDTRoutine [facility] [address] Jose Barreto, DO 32 weeks gestation of ([facility]); Third trimester ([facility]); Anemia, unspecified type12/04/2024 1:30 PM EDTAncillary Procedure [facility] [address] size inconsistent with dates ([facility])12/03/20247519Dvpgcy13/07/2025 2:30 PM EDTRoutine [facility] [address] Patricia Kelly NP size inconsistent with dates ([facility]) (Primary Dx); Third trimester ([facility]); 30 weeks gestation of ([facility])11/20/2024amboo flowsheet [facility] [address] Patricia Kelly NP 11/20/20241133Ryqndj25/22/2025 10:00 AM EDTRoutine [facility] [address] [facility] [address] Jose Barreto DO Anemia, unspecified type (Primary Dx); Third trimester ([facility]); 28 weeks gestation of ([facility])11/05/2024linisync Result Encounter [facility]OM[facility] External Department Unsolicited Patricia Kelly NP 11/05/2024amboo flowsheet [facility] [address] [facility] [address] Jose Barreto, 11/05/20249853Cnhsgr77/10/2025 3:00 PM EDTRoutine [facility] [address] [facility] [address] Cindy Silva PA 26 weeks gestation of ([facility]); Second trimester ([facility]); Anemia during in second trimester ([facility])10/24/2024amboo flowsheet [facility] [address] [facility] [address] Cindy Silva PA 10/24/20240058Ckrytr78/26/2025Telephone [facility] [address] [facility] [address] Jose Barreto, 10/08/2024linisync Result Encounter [facility]OMS External Department Unsolicited Jose Barreto DO 09/26/2024 2:50 PM EDTRoutine [facility] [address] [facility] [address] Jose Barreto DO Diabetes mellitus screening; Second trimester ([facility]); 22 weeks gestation of ([facility])09/26/2024amboo flowsheet [facility] [address] [facility] [address] Jose Barreto, 09/26/2024Travelfrom Last 3 Months Family History Medical HistoryRelationNameCommentsCancerFatherChuck BarnhartDiabetesFatherChspecial care hospital BarnhartCerebrovascular accidentMaternal GrandfatherDiabetesMaternal Grandmother Tanja LeberHeart failureMaternal GrandmotherCharlotte LeberCancerMotherVicki BarmdartRelationNameStatusCommentsFatherChspecial care hospital BarnhartAliveMaternal Grandfather Maternal GrandmotherCharlotte LeberAliveMotherVicki BarnhartAlive Social History Tobacco UseTypesPacks/DayYears UsedDateSmoking Tobacco: NeverSmokeless Tobacco: Never Tobacco Cessation:Counseling Given: Not Answered Alcohol UseStandard Drinks/WeekCommentsYes2 (1 standard drink = 0.6 oz pure alcohol)Estimated Date of RtqythxuNefrxsieJge45/12/2025Based on UltrasoundSex and Gender InformationValueDate RecordedSex Assigned at BirthNot on fileLegal EioRyelyu69/15/2023 6:54 PM EDTGender IdentityNot on fileSexual OrientationNot on file Last Filed Vital Signs Vital SignReadingTime TakenCommentsBlood Uvryewoj526/6212/26/2024 3:29 PM EST Pulse--Temperature--Respiratory Rate--Oxygen Saturation--Inhaled Oxygen Concentration--Mwcevl45.8 kg (198 lb)12/26/2024 3:29 PM GUIFeolwp648.7 cm (5' 8 )07/14/2023 11:01 AM EDTBody Mass Index30.11007/14/2023 11:01 AM EDT Plan of Treatment DateTypeDepartmentCare Team (Latest Contact Info)Pbcfchkisiq38/17/2025 9:50 AM ESTRoutine [facility] [address] [facility] [place] [address] Patricia Kelly NP [address] [facility] [place] [address] Health MaintenanceDue DateLast DoneCommentsHPV/Djoytd5609/21/2020OVID-19 Vaccine (2024- season), 04/09/2020Influenza Vaccine (#1) Cervical Cancer Uocyhblbu84/16/2028Pap Smear08/30/2027 08/29/2024, 07/13/2023, 03/10/2022neumococcal Vaccine: Pediatrics (0 to 5 Years) and At-Risk Patients (6 to 64 Years)Aged OutNo longer eligible based on patient's age to complete this topic Procedures Procedure NamePriorityDate/TimeAssociated DiagnosisCommentsPOCT URINALYSIS NVOGFLKUZnmeubr15/12/2025 3:29 PM EST 35 weeks gestation of ([facility]) TBH UA (CLEAN/CATCH) PASTEURIZER/MICRO IF IND.Cyathxr7212/20/2024 7:55 AM EST POCT URINALYSIS BVSHUSUVWuyoadv66/03/2025 2:04 PM EST Third trimester ([facility]) POCT URINALYSIS UMXRNLGOVqkocin15/21/2025 2:09 PM EDT 32 weeks gestation of ([facility]) Third trimester ([facility]) US OB FOLLOW UP TRANSABDOMINAL ZUIZGOXUFfqxlty75/21/2025 1:52 PM EDT size inconsistent with dates ([facility]) POCT URINALYSIS CGZDZHTFKzwkwmg09/07/2025 2:37 PM EDT Third trimester ([facility]) ALL CBC WITH AUTO NJTMZjfltmp13/22/2025 11:16 AM EDT POCT URINALYSIS GEZUONZLVanacww98/22/2025 10:14 AM EDT Third trimester ([facility]) POCT URINALYSIS VKRAPCDXCcfkfjh88/10/2025 3:11 PM EDT 26 weeks gestation of ([facility]) Second trimester ([facility]) GLUCOSE 1 VEWPKzknkhj70/25/2025 2:13 PM EDT ALL CBC WITH AUTO QNZFFbdqavd28/25/2025 2:13 PM EDT POCT URINALYSIS STDTVBTCDzpxgis34/13/2025 3:04 PM EDT Second trimester ([facility]) PAP NKJCQYjnmzwd93/16/2025 12:00 AM EDTfrom Last 3 Months or Most Recently Relevant to Health Maintenance Results * (ABNORMAL) POCT urinalysis dipstick manually resulted (12/26/2024 3:29 PM EST) Only the most recent of7 resultswithin the time period is included. ComponentValueRef RangeTest MethodAnalysis TimePerformed AtPathologist Signature Color, UAYellowClarity, UAClearGlucose, UANegativeNegative - 2000(110) ++++ mg/dLBilirubin, UANegativeNegative - 4(70) +++ mg/dLKetones, UAPositiveNegative - 160(16) ++++ mg/dLSpec Grav, UA1.0101 - 1.03Blood, UANegativeNegative - 50 Guy/mcLpH, UA6.05 - 9Protein, UATraceNegative - 2000(20) ++++ mg/dLUrobilinogen, UA1.00.2 - 12 mg/dLLeukocytes, UANegativeNegative - 500+++ Corona/mcLNitrite, UA NegativeNegative - PositiveSpecimen (Source)Anatomical Location / Laterality Collection Method / VolumeCollection TimeReceived FiizVkeqv81/12/2025 3:29 PM EST Narrative Authorizing ProviderResult TypeResult StatusCorey Mary Lou DOPOINT OF CARE TEST ENTER/EDIT ORDERABLESFinal Result * (ABNORMAL) TBH UA (CLEAN/CATCH) PASTEURIZER/MICRO IF IND. (12/20/2024 7:55 AM EST) ComponentValueRef RangeTest MethodAnalysis TimePerformed AtPathologist SignatureCOLOR URINEYELLOWYELLOWTBHCLARITY URINECLEARCLEARTBHSPECIFIC GRAVITY URINE1.0201.005 - 1.025TBHPH URINE6.05.0 - 9.0TBHPROTEIN URINENEGATIVE NEG/TRACE mg/dLTBHGLUCOSE URINE UANEGATIVENEGATIVE mg/dLTBHBILIRUBIN URINE NEGATIVENEGATIVETBHKETONES URINETRACE(A)NEGATIVE mg/dLTBHBLOOD URINENEGATIVE NEGATIVETBHNITRITE URINENEGATIVENEGATIVETBHUROBILINOGEN URINE0.20.2 - 1.0 EU/dLTBHLEUKOCYTE ESTERASE URINENEGATIVENEGATIVETBHURINE MICROSCOPIC INDICATED NOTBHSpecimen (Source)Anatomical Location / LateralityCollection Method / VolumeCollection TimeReceived Time12/20/2024 7:55 AM EST12/20/2024 8:07 AM EST Narrative [facility] - 12/20/2024 8:12 AM EST Authorizing ProviderResult TypeResult StatusCorey Mary Lou DOCLINISYNCFinal Result Performing OrganizationAddressCity/State/ZIP CodePhone Number [facility] * US OB follow up transabdominal approach [...] Cosme MD Authorizing ProviderResult TypeResult StatusPatricia Kelly NPIMG OB US PROCEDURESFinal Result * (ABNORMAL) [...] - 35.2 g/dLTBHTBH RDW12.711.0 - 15.0 %TBHTBH [id number] - 450 10 3/uLTBHTBH MPV9.59.5 - 13.5 [...] StatusPatricia Kelly NPCLINISYNCFinal ResultPerforming OrganizationAddressCity/State/ZIP CodePhone Number [facility] * GLUCOSE 1 HOUR (10/08/2024 2:13 PM EDT)ComponentValueRef RangeTest Method Analysis TimePerformed AtPathologist SignatureGLUCOSE 1 BPIT728<130 mg/dLTBH Specimen (Source)Anatomical Location / LateralityCollection Method / Volume Collection TimeReceived Time10/08/2024 2:13 PM EDT10/08/2024 2:25 PM EDT Narrative [facility] - 10/08/2024 2:52 PM EDT Authorizing ProviderResult TypeResult StatusCorey Mary Lou DOLAB BLOOD ORDERABLES Final ResultPerforming OrganizationAddressCity/State/ZIP CodePhone Number [facility] * Pap Smear (08/29/2024 12:00 AM EDT)Specimen (Source)Anatomical Location / LateralityCollection Method / VolumeCollection TimeReceived TimeSwabCervical swab / Unknown Narrative Authorizing ProviderResult TypeResult StatusFazio Nurse [facility] ObLAB CYTOLOGY ORDERABLESFinal ResultPerforming OrganizationAddressCity/State/ZIP CodePhone Number EXTERNAL LAB from Last 3 Months or Most Recently Relevant to Health Maintenance Insurance
--- OUTSIDE RECORDS SUMMARY | 2024-12-26 19:49 | XMS_ITS | Clinical Summary ---
Author Organization [facility] Address [address] [place] [address] Phone Care Team Providers Care Warehouse Handler Name Role Phone Unavailable Primary Care Provider Unavailabl e Social History Tobacco UseTypesPacks/DayYears UsedDateSmoking Tobacco: Never Assessed CommentsUnknownSex and Gender InformationValueDate RecordedSex Assigned at Not on fileLegal PldAcidmv69/26/2022 11:36 AM ESTGender IdentityNot on file Sexual OrientationNot on file Plan of Treatment Not on file
--- OUTSIDE RECORDS SUMMARY | 2024-12-26 19:49 | XMS_ITS | Encounter Summary ---
Author Organization [facility] Address [address] [place] [address] Care Team Providers Care It Compliance Manager Name Role Phone Unavailable Primary Care Provider Unavailabl e Encounter Details DateTypeDepartmentCare Team (Latest Contact Info)Nzgkrczytce99/03/2025Bamboo flowsheet MOI CASTAÑEDA [address] [facility] [place] [address] Cindy Silva PA [address] [facility] [address] Social History Tobacco UseTypesPacks/DayYears UsedDateSmoking Tobacco: Never Assessed Estimated Date of QujgbrwtNdemgobrAfr94/12/2025Based on UltrasoundSex and Gender InformationValueDate RecordedSex Assigned at BirthNot on fileLegal SexFemale 04/28/2022 6:54 PM EDTGender IdentityNot on fileSexual OrientationNot on file documented as of this encounter Plan of Treatment DateTypeDepartmentCare Team (Latest Contact Info)Dqkaergfajt15/17/2025 9:50 AM ESTRoutine MOI CASTAÑEDA [address] [facility] [place] [address] Patricia Kelly NP [address] [facility] [place] [address] documented as of this encounter Visit Diagnoses Not on filedocumented in this encounter
--- OUTSIDE RECORDS SUMMARY | 2024-12-26 19:49 | XMS_ITS | Encounter Summary ---
Author Organization [facility] Address [address] [place] [address] Care Team Providers Care Testing Consultant Name Role Phone Unavailable Primary Care Provider Unavailabl e Encounter Details DateTypeDepartmentCare Team (Latest Contact Info)Dfgcxjlrntz56/06/2025Clinisync Result Encounter [facility] External Department Unsolicited Jose Barreto, DO [address] [facility] [place] [address] Social History Tobacco UseTypesPacks/DayYears UsedDateSmoking Tobacco: Never Assessed Estimated Date of KppvdkvrNtjseygvYxu93/12/2025Based on UltrasoundSex and Gender InformationValueDate RecordedSex Assigned at BirthNot on fileLegal SexFemale 04/28/2022 6:54 PM EDTGender IdentityNot on fileSexual OrientationNot on file documented as of this encounter Plan of Treatment DateTypeDepartmentCare Team (Latest Contact Info)Kmohanrfscc30/17/2025 9:50 AM ESTRoutine [facility] [address] [facility] [place] [address] Patricia Kelly, AIR BOX TESTER [address] [facility] [place] [address] documented as of this encounter Procedures Procedure NamePriorityDate/TimeAssociated DiagnosisCommentsTBH UA (CLEAN/CATCH) MEAT PROCESS WORKER/MICRO IF IND.Ckblshf4412/20/2024 7:55 AM EST documented in this encounter Results * (ABNORMAL) TBH UA (CLEAN/CATCH) MEAT PROCESS WORKER/MICRO IF IND. (12/20/2024 7:55 AM EST) ComponentValueRef [...] Lou DOCLINISYNCFinal Result Performing OrganizationAddressCity/State/ZIP CodePhone Number [facility] documented in this encounter Visit Diagnoses Not on filedocumented in this encounter
--- OUTSIDE RECORDS SUMMARY | 2024-12-26 19:49 | XMS_ITS | Encounter Summary ---
Author Organization [facility] Address [address] [facility] [place] [address] Care Team Providers Care Drawbridge Operator Name Role Phone Unavailable Primary Care Provider Unavailabl e Encounter Details DateTypeDepartmentCare Team (Latest Contact Info)Qgkaqvxlmmk81/03/2025Travel Social History Tobacco UseTypesPacks/DayYears UsedDateSmoking Tobacco: Never Assessed Estimated Date of YkkxmazsMmzoxgujKqo72/12/2025Based on UltrasoundSex and Gender InformationValueDate RecordedSex Assigned at BirthNot on fileLegal SexFemale 04/28/2022 6:54 PM EDTGender IdentityNot on fileSexual OrientationNot on file documented as of this encounter Plan of Treatment DateTypeDepartmentCare Team (Latest Contact Info)Gomdehwysid43/17/2025 9:50 AM ESTRoutine [facility] [address] [facility] [address] Patricia Kelly, YOLA [address] [facility] [place] [address] documented as of this encounter Visit Diagnoses Not on filedocumented in this encounter
--- OUTSIDE RECORDS SUMMARY | 2024-12-26 19:49 | XMS_ITS | Encounter Summary ---
Author Organization [facility] Address [address] [facility] [place] [address] Care Team Providers Care Medical Director Occupational Health Name Role Phone Unavailable Primary Care Provider Unavailabl e Encounter Details DateTypeDepartmentCare Team (Latest Contact Info)Dtcrutfigdl19/11/2025Travel Social History Tobacco UseTypesPacks/DayYears UsedDateSmoking Tobacco: Never Assessed Estimated Date of KsgopcysYzmudutgQaq76/12/2025Based on UltrasoundSex and Gender InformationValueDate RecordedSex Assigned at BirthNot on fileLegal SexFemale 04/28/2022 6:54 PM EDTGender IdentityNot on fileSexual OrientationNot on file documented as of this encounter Plan of Treatment DateTypeDepartmentCare Team (Latest Contact Info)Hlsixjrrnba11/17/2025 9:50 AM ESTRoutine [facility] [address] [facility] [address] Patricia Kelly, YOLA [address] [facility] [place] [address] documented as of this encounter Visit Diagnoses Not on filedocumented in this encounter
--- OUTSIDE RECORDS SUMMARY | 2024-12-26 19:49 | XMS_ITS | Patient Health Record ---
Author Organization [facility] vices Address [address] [place], [place] [address] Care Team Providers Care In Service Coordinator Name Role Phone AsuncionJeremiasJimy Alma Unavailable [phone] Mya Marte Unavailable [phone] Allergies Allergen (clinical drug ingredient) Drug/Non Drug [...] W/U Status Risk Notes Problem Tobacco user (261205383) Cigaret te nicotine dependence without complication (F17.210) ActiveconfirmedProblemBody mass index 25-29 - overweight (990865461)BMI 25.0- 25.9,adult (Z68.25)Activeconfirmed Vital Signs Heart Rate 62 /min 02/06/2024 Height-cm172.72 cm02/06/2024lood pressure tjghytgpt32 mm Hg02/06/2024Weight-kg 74.84 kg02/06/20247995Marnay81 in02/06/2024lood pressure jzrzfiim692 mm Hg 02/06/20240497Cvjfzl712 lbs104/08/2023BMI25.09 kg/m202/06/2024 Encounters Encounter Location Date Provider Diagnosis [facility] [address] [place], [place] [id number] 02/06/2024 Mya Marte Encounter for scre ening [...] Start Date Coverage End Date Jennifer Peng [facility] [address] [place] [address] [id number] Gibson Mckeon - patient is the vwvnegl40/01/2023DMedicaid CFC after [address] [place], [place] [id number], [employer] - patient is the [id number] 2022
--- OUTSIDE RECORDS SUMMARY | 2024-12-26 19:49 | XMS_ITS | Encounter Summary ---
Author Organization [facility] Address [address] [place] [address] Care Team Providers Care Supervisor Home Energy Consultant Name Role Phone Unavailable Primary Care Provider Unavailabl e Encounter Details DateTypeDepartmentCare Team (Latest Contact Info)Myyhandxsbn29/12/2025Bamboo flowsheet MOI CASTA[address]EDA [address] [place] [address] Jose Barreto DO [address], [place] [address] Social History Tobacco UseTypesPacks/DayYears UsedDateSmoking Tobacco: NeverSmokeless Tobacco: NeverAlcohol UseStandard Drinks/WeekCommentsYes2 (1 standard drink = 0.6 oz pure alcohol)Estimated Date of UkxutnosPggflyqyDkg71/12/2025Based on UltrasoundSex and Gender InformationValueDate RecordedSex Assigned at BirthNot on fileLegal GfoBgzfzg30/15/2023 6:54 PM EDTGender IdentityNot on fileSexual OrientationNot on filedocumented as of this encounter Plan of Treatment DateTypeDepartmentCare Team (Latest Contact Info)Yjpthixkozt53/17/2025 9:50 AM ESTRoutine NOMSumaya CASTAÑEDA [address] [place] [address] Patricia Kelly, DEVULCANIZER OPERATOR [address] [place] [phone] documented as of this encounter Visit Diagnoses Not on filedocumented in this encounter
== END 2024-12-26 19:45 | disposition home or self-care (01) ==
LOC: LAB 19:44
PROVIDERS: Visit Provider Obstetrics & Gynecology
DX: Z34.93 Encounter for supervision of normal pregnancy, unspecified, third trimester (principal)
CPT/HCPCS: 87081

== ENCOUNTER 2025-01-21 05:26 | Inpatient (IN) | payer BC, OTHER, SELFPAY ==
--- OUTSIDE RECORDS SUMMARY | 2023-12-20 03:45 | XMS_ITS ---
Author Organization Formerly [facility] vices Address [address] [place] [place] [id number] Care Team Providers Care Health Care Consultant Name Role Phone Alma Jolley Unavailable [phone] REASON FOR VISIT Recall (A) 33 Social History Sex Assigned At : Social History Observation Description Sex Assigned At Female Encounters Encounter Location Date Provider Diagnosis Dental Main [address] [place], [place] [id number] 12/20/2023 Alma Jolley Plan Of Treatment No Information Progress Notes * Arti MCKEON NDOB:[birth year] (34 yo F)Acc No.[id number]:12/20/2023 Patient:?Janice Mckeonraheem Gustafson :?Alma Jolley DDSDOB:1990???Age:33 Y ???Sex:FemaleDate:12/20/2023hone:[phone]:[address] [place], [place] [id number] Subjective: * Chief Complaints: * R ecall (A) 33 Billing Information: * Procedure Codes: * Electronic signature of Alma Jolley DDS on 01/21/2025 at 05:31 AM EST Sign off status: Pending * Provider: Roxana Jolley DDS Date: 02/18/2023 Generated for Printing/Faxing/eTransmitting on:?01/21/2025 05:31 AM EST
--- OUTSIDE RECORDS SUMMARY | 2025-01-07 15:50 | XMS_ITS | Encounter Summary ---
Author Organization [facility] Address [address] [facility] [place] [address] Care Team Providers Care Organ Grinder Name Role Phone Unavailable Primary Care Provider Unavailabl e Reason for Visit * ReasonCommentsRoutine Visit Encounter Details DateTypeDepartmentCare Team (Latest Contact Info)Nhesdmpexsi62/24/2025 3:50 PM ESTRoutine [facility] [address] [place] [phone] Jose Barreto DO [address] [facility] [address], [facility]11 Third trimester ([facility]); 37 weeks gestation of ([facility]) Social History Tobacco UseTypesPacks/DayYears UsedDateSmoking Tobacco: NeverSmokeless Tobacco: NeverAlcohol UseStandard Drinks/WeekCommentsYes2 (1 standard drink = 0.6 oz pure alcohol)Estimated Date of VegupwxbLzuoqqjgRan04/12/2025Based on UltrasoundSex and Gender InformationValueDate RecordedSex Assigned at BirthNot on fileLegal FodFpcyvh20/15/2023 6:54 PM EDTGender IdentityNot on fileSexual OrientationNot on filedocumented as of this encounter Last Filed Vital Signs Vital SignReadingTime TakenCommentsBlood Qkfidhri357/6801/07/2025 4:17 PM EST Pulse--Temperature--Respiratory Rate--Oxygen Saturation--Inhaled Oxygen Concentration--Nndkrd81.3 kg (199 lb)01/07/2025 4:17 PM ESTHeight--Body Mass Index30.26007/14/2023 11:01 AM EDTdocumented in this encounter Progress Notes * Jose Barreto DO - 01/07/2025 3:50 PM EST Reason for Appointment: Patient ID: Arti Mckeon is a 34 y.o. female who presents for Routine Visit Patient presents today for Return OB appointment. Current Medications: has a current medication list which includes the following prescription(s): albuterol hfa, docusatesodium, multivitamin, polyethylene glycol (peg) 3350, and profe. Medical History: Active Ambulatory Problems Diagnosis Date Noted No Active Ambulatory Problems Resolved Ambulatory Problems Diagnosis Date Noted No Resolved Ambulatory Problems Past Medical History: Diagnosis Date Allergies Asthma (HCC) Genital warts 2012 Pelvic pain 2006 Family History[1] Social History Tobacco Use Smoking status: Never Smokeless tobacco: Never Substance Use Topics Alcohol use: Yes Alcohol/week: 2.0 standard drinks of alcohol Types: 2 Glasses of wine per week Drug use: Never Surgical History[2] Allergies[3] Review of Systems: Review of Systems Constitutional: Negative. HENT: Negative. Eyes: Negative. Respiratory: Negative. Cardiovascular: Negative. Gastrointestinal: Negative. Genitourinary: Negative. Musculoskeletal: Negative. Skin: Negative. Neurological: Negative. All other systems reviewed and are negative. Hematological: Negative. Endocrine: Negative. Allergic/Immunologic: Negative. Objective Physical Exam Constitutional: Appearance: Normal appearance. She [...] nursing note reviewed. Exam conducted with a automation tester present. Vitals: Estimated body mass index is 30.26 kg/m?? as calculated from the following: Height as of 07/14/23: 5' 8 . Weight as of this encounter: 199 lb. BP: 110/68 Patient's last menstrual period was 05/08/2024. Assessment/Plan Encounter Diagnosis: ICD-10-CM 1. Third trimester ([facility]) Z34.93 2. 37 weeks gestation of ([facility]) Z3A.37 POCT urinalysis dipstick manually resulted Return OB: Patient presents today for a routine obstetrics appointment. Patient is currently 37w5d . Patient states she is doing well [...] week for routine OB appointment. Documented by Jose Barreto DO on behalf of: Jose Barreto DO [1] Family History Problem Relation Name Age of Onset Other (Cerebrovascular accident) Maternal Grandfather Cancer Mother Amanda Mckeon Cancer Father Maxim Mckeon Diabetes Father Maxim Mckeon Diabetes Maternal Grandmother Tanja Nuñez Heart failure Maternal Grandmother Tanja Nuñez [2] Past Surgical History: Procedure Laterality Date ABDOMINAL SURGERY SECTION, LOW TRANSVERSE 03/02/2019 due to previous 4th degree tear SECTION, LOW TRANSVERSE 11/05/2021 [3] Allergies Allergen Reactions Penicillin G Other Reaction(s): Unknown Sulfa Antibiotics Hives Other Reaction(s): Unknown Penicillins Rash Other Reaction(s): Unknown documented in this encounter Plan of Treatment DateTypeDepartmentCare Team (Latest Contact Info)Qrdewjowuub63/15/2025 10:30 AM ESTOffice Visit [facility] [address] [place] [phone] Cindy Silva PA [address] [place] [address] documented as of this encounter Procedures Procedure NamePriorityDate/TimeAssociated DiagnosisCommentsPOCT URINALYSIS XOCLGPGULsgkmrh23/24/2025 4:17 PM EST 37 weeks gestation of ([facility]) documented in this encounter Results * (ABNORMAL) POCT urinalysis dipstick manually resulted (01/07/2025 4:17 PM EST) ComponentValueRef RangeTest MethodAnalysis TimePerformed AtPathologist SignatureColor, UAYellowClarity, UAClearGlucose, UANegativeNegative - 2000(110) ++++ mg/dLBilirubin, UA1+Negative - 4(70) +++ mg/dLKetones, UA PositiveNegative - 160(16) ++++ mg/dLSpec Grav, UA1.0301 - 1.03Blood, UA NegativeNegative - 50 Guy/mcLpH, UA5.55 - 9Protein, UA1+Negative - 2000(20) ++++ mg/dLUrobilinogen, UA1.00.2 - 12 mg/dLLeukocytes, UANegativeNegative - 500+++ Corona/mcLNitrite, UANegativeNegative - PositiveSpecimen (Source) Anatomical Location / LateralityCollection Method / VolumeCollection Time Received DmgaQpgsd62/24/2025 4:17 PM EST Narrative Authorizing ProviderResult TypeResult StatusCorey Mary Lou DOPOINT OF CARE TEST ENTER/EDIT ORDERABLESFinal Result documented in this encounter Visit Diagnoses Diagnosis Third trimester ([facility]) state, incidental 37 weeks gestation of ([facility]) documented in this encounter
--- OUTSIDE RECORDS SUMMARY | 2025-01-14 11:30 | XMS_ITS | Encounter Summary ---
Author Organization [facility] Address [address] [facility] [place] [address] Care Team Providers Care Occupational Hygienist Name Role Phone Unavailable Primary Care Provider Unavailabl e Reason for Visit * ReasonCommentsRoutine Visit Encounter Details DateTypeDepartmentCare Team (Latest Contact Info)Xssszjumbyp95/01/2025 11:30 AM ESTRoutine [facility] Ag [facility] [address] [address] Patricia Kelly, YOLA [address] [place] [address] Third trimester ([facility]); 38 weeks gestation of ([facility]) Social History Tobacco UseTypesPacks/DayYears UsedDateSmoking Tobacco: NeverSmokeless Tobacco: NeverAlcohol UseStandard Drinks/WeekCommentsYes2 (1 standard drink = 0.6 oz pure alcohol)Estimated Date of IkdacmvqVoggcjegTzs57/12/2025Based on UltrasoundSex and Gender InformationValueDate RecordedSex Assigned at BirthNot on fileLegal QowQnofgk19/15/2023 6:54 PM EDTGender IdentityNot on fileSexual OrientationNot on filedocumented as of this encounter Last Filed Vital Signs Vital SignReadingTime TakenCommentsBlood Ycyxpflt657/6201/14/2025 11:31 AM EST Pulse--Temperature--Respiratory Rate--Oxygen Saturation--Inhaled Oxygen Concentration--Vwmozq46.8 kg (198 lb)01/14/2025 11:31 AM ESTHeight--Body Mass Index30.11007/14/2023 11:01 AM EDTdocumented in this encounter Progress Notes * Patricia Kelly NP - 01/14/2025 11:30 AM EST Reason for Appointment: Patient ID: Arti [...] nursing note reviewed. Exam conducted with a museum assistant present. Vitals: Estimated body mass index is 30.11 kg/m?? as calculated from the following: Height as of 07/14/23: 5' 8 . Weight as of this encounter: 198 lb. BP: 118/62 Patient's last menstrual period was 05/08/2024. Assessment/Plan ICD-10-CM 1. Third trimester ([facility]) Z34.93 POCT urinalysis dipstick manually resulted 2. 38 weeks gestation of ([facility]) Z3A.38 Assessment/Plan Return OB: Patient presents today for a routine obstetrics appointment. Patient is currently 38w3d . Patient states she is doing well but has complaints of being tired due to current . Patient has verbalizes frequent movement. labor precautions was discussed/given and patient was instructed to perform kick counts three times a day. Orders Placed This Encounter Procedures POCT urinalysis dipstick manually resulted Follow Up: Patient is scheduled for repeat C Section on 01/21/2025. Documented by Jannie Lopez MA on behalf of: Patricia Kelly NP documented in this encounter Plan of Treatment DateTypeDepartmentCare Team (Latest Contact Info)Kvcodrclofv02/15/2025 10:30 AM ESTOffice Visit [facility] [address] [address] Cindy Silva PA [address] [place] [address] documented as of this encounter Procedures Procedure NamePriorityDate/TimeAssociated DiagnosisCommentsPOCT URINALYSIS QVJKPOASEqfswxo99/01/2025 11:32 AM EST Third trimester ([facility]) documented in this encounter Results * (ABNORMAL) POCT urinalysis dipstick manually resulted (01/14/2025 11:32 AM EST)ComponentValueRef RangeTest MethodAnalysis TimePerformed AtPathologist SignatureColor, UADark AmberClarity, UAClearGlucose, UANegativeNegative - 2000(110) ++++ mg/dLBilirubin, UANegativeNegative - 4(70) +++ mg/dLKetones, UA NegativeNegative - 160(16) ++++ mg/dLSpec Grav, UA1.0301 - 1.03Blood, UA NegativeNegative - 50 Guy/mcLpH, UA6.05 - 9Protein, UA1+Negative - 2000(20) ++++ mg/dLUrobilinogen, UA1.00.2 - 12 mg/dLLeukocytes, UANegativeNegative - 500+++ Corona/mcLNitrite, UANegativeNegative - PositiveSpecimen (Source) Anatomical Location / LateralityCollection Method / VolumeCollection Time Received ZdxbLslbh87/01/2025 11:32 AM EST Narrative Authorizing ProviderResult TypeResult StatusPatricia Kelly NPPOINT OF CARE TEST ENTER/EDIT ORDERABLESFinal Result documented in this encounter Visit Diagnoses Diagnosis Third trimester ([facility]) state, incidental 38 weeks gestation of ([facility]) documented in this encounter
[2025-01-21] VITALS (35 sets, daily range): BP systolic 68–128; BP diastolic 40–76; PULSE 66–91; TEMP 36.1–36.8; O2SAT 89–100
--- OUTSIDE RECORDS SUMMARY | 2025-01-21 05:30 | XMS_ITS | CCD ---
Author Organization [facility] CliniSytn Care Team Providers Care Conservation Biology Professor Name Role Phone Gosai Garcias Primary Care Unavailable Jenn Gallegos Attending [...] MARY LOU, DR INFANTE Admitting Unavailable ROSYJENN DURAHM Primary Care Unavailable MARY LOU, DR INFANTE [...] Unavailable MARY LOU, DR INFANTE Admitting Unavailable JOELTON, DR KASEY Horvath Consulting Unavailable MARY LOU, [...] Unavailable MARY LOU, JOSE Attending Unavailable ROBIN, LYDIA Attending Unavailable ROBIN, LYDIA Referring Unavailable MARY LOU, JOSE Attending Unavailable CINDY THOMAS Attending Unavailable Allergies Allergy ClassificationReported Allergen(s)Allergy TypeDate of OnsetReaction(s) Facility (5 sources)Sulfacetamide / SulfurDrug AllergyOr[facility] Interactive Other (1 source)PenicillinsDrug allergy (disorder)39-24-8521[facility] (1 source)Sulfonamides (Antibiotic)Drug allergy (disorder)13-28-1896[facility]iiC[facility] (20 sources)PenicillinsDrug Nuxypovlfha24-84-1384VvdrHLTG Healthcare (20 sources)Sulfonamides (Antibiotic)Drug Arzjudnbaba83-87-1172WcviwWAMJ Healthcare (20 sources)Penicillin GDrug Cxqbbru30-73-7441PZPD Healthcare Medications Current Medications MedicationDrug Class(es)DatesSig (Normalized)Sig (Original)[id number] 200 actuat albuterol 0.09 mg/actuat metered dose [...] tablet by mouth Daily Activepolyethylene glycol 3350 10435 mg powder for oral solution (20 sources)Osmotic Laxativepolyethylene glycol, PEG, 3350 (Miralax) 17 g packet Take by mouth Activepolysaccharide iron complex 391 mg oral capsule (13 sources)Start: 10-09-2024 End: 95-63-1200glpp 1 capsule by mouth once dailyProFe 391.3 [...] propionate 0.0005 mg/mg topical ointment (4 sources)CorticosteroidStart: 04-21-4985Tvjjnalqba Propionate 0.05 % 1 application Externally Twice a day for 10 day(s) PRN Feb, Not-Taking FLUoxetine 20 mg oral tablet (4 sources)Serotonin Reuptake Inhibitortake 1 tablet by mouth every twenty-four hoursFLUoxetine HCl 20 MG 1 tablet Orally Once a day for 90 day(s) Not-Taking naproxen 500 mg oral tablet (2 sources)Nonsteroidal Anti-inflammatory DrugStart: 07-81-7409hjpo 1 tablet by mouth every twelve hours at mealtime as neededNaproxen 500 MG 1 tablet with food or milk as needed Orally every 12 hrs for 20 days Apr, Not-Taking/PRN Problems Active Problems Problem ClassificationProblemDateDocumented DateEpisodic/ChronicAnxiety disorders (10 sources)Mixed anxiety and depressive disorder; Translations: [Other specified anxiety disorders]Onset: 02-11-2021 Resolved: 89-33-9031BmimubsLhgokl (9 sources)Uncomplicated moderate persistent asthma; Translations: [Moderate persistent asthma, uncomplicated]Onset: 02-11-2021 Resolved: 41-20-0304QlndfktMqvaosvveb and other anemia (4 sources)Anemia; Translations: [Anemia, unspecified]95-28-5036LgfgledcRzqyxaas mellitus without complication (1 source)Diabetes mellitus without complication; Translations: [Z13.1 - Encounter for screening for diabetesmellitus]Onset: 17-04-2460Ntudhvrx; including migraine (5 sources)Chronic tension-type headache; Translations: [Chronic tension-type headache, not intractable]ChronicImmunizations and screening for infectious disease (8 sources)Encounter for screening for human papillomavirus (HPV); Translations: [Encounter for screening for infections with a predominantly sexual mode of transmission]Onset: 80-76-6025FozbvdwyMznuchrpi disorders (4 sources)Irregular menstruation, unspecified; Translations: [IRREGULAR MENSTRUATION UNSPECIFIED]Onset: 79-72-1495NrhqxsfXqfji complications of ; puerperium affecting management of mother (1 source)Anemia complicating childbirth; Translations: [ANEMIA COMPLICATING CHILDBIRTH]Onset: 52-26-7079RbohcgkGdeoa complications of ; puerperium affecting management of mother (1 source)Obesity complicating childbirth; Translations: [OBESITY COMPLICATING CHILDBIRTH]Onset: 01-63-1177QprqsgzEuyrt complications of (2 sources)Anemia of ; Translations: [Anemia complicating , second trimester]66-25-5012ViipljdYhphh complications of (2 sources) size does not accord with dates; Translations: [Uterine size- date discrepancy, unspecified trimester]07-61-1190CoxkzhqtJyksj connective tissue disease (1 source)Other enthesopathies, not elsewhere classifiedEpisodicOther nutritional; endocrine; and metabolic disorders (1 source)Obesity, unspecified; Translations: [OBESITY UNSPECIFIED]Onset: 59-05-8278LiduvnrOtlhb and delivery including normal (18 sources)Single live ; Translations: [Encounter for supervision of normal , unspecified, firsttrimester]Onset: 370126-84-4555 EpisodicOther screening for suspected conditions (not mental disorders or infectious disease) (19 sources)Encounter for screening for malignant neoplasm of cervix; Translations: [Encounter for screening for Streptococcus B]Onset: 12-91-6231HeorwvqaVaers upper respiratory infections (4 sources)Acute frontal sinusitis; Translations: [Acute frontal sinusitis, unspecified]EpisodicResidual codes; unclassified (2 sources)Gestation period, 14 weeks; Translations: [14 weeks gestation of ]70-75-6549HcdglwtaTauxjwle codes; unclassified (2 sources)Gestation period, 18 weeks; Translations: [18 weeks gestation of ]17-75-1471UxujnitmPecvhemz codes; unclassified (2 sources)Gestation period, 22 weeks; Translations: [22 weeks gestation of ]69-52-5524WdxcfukaBcbneeow codes; unclassified (2 sources)Gestation period, 26 weeks; Translations: [26 weeks gestation of ]97-49-8845QkiwcdfySlpuzpsm codes; unclassified (2 sources)Gestation period, 28 weeks; Translations: [28 weeks gestation of ]04-44-9388QauwdxieFjiqvojy codes; unclassified (2 sources)Gestation period, 30 weeks; Translations: [30 weeks gestation of ]43-54-4691LspyzctaBcpwdoua codes; unclassified (2 sources)Gestation period, 32 weeks; Translations: [32 weeks gestation of ]12-99-2550DbizdthuMebrjhiz codes; unclassified (2 sources)Gestation period, 34 weeks; Translations: [34 weeks gestation of ]25-37-1786IjckzjpoXhlqyncporwh (1 source)CONTACT W/AND (SUSP) EXPOS COVID-19; Translations: [CONTACT W/AND (SUSP) EXPOS COVID-19]Onset: 11-02-2021 Past or Other Problems Problem ClassificationProblemDateDocumented DateEpisodic/ChronicDeficiency and other anemia (1 source)Iron deficiency anemia, unspecified; Translations: [IRON DEFICIENCY ANEMIA UNSPECIFIED]Onset: 66-99-9081WnanqvnpI Codes: Cut/pierceb (1 source)Contact with other sharp object(s), not elsewhere classified, initial encounter; Translations: [[facility] SH[facility] OB NOT ELSW CLASS INI]Onset: 06-01-2021 EpisodicHemorrhage during ; abruptio placenta; placenta previa (8 sources)Low lying placenta NOS or without hemorrhage, unspecified trimester; Translations: [Complete placenta previa NOS or without hemorrhage, unspecified trimester]Onset: 47-23-2406FbamwjpvFqshb aftercare (1 source)Other alf (current) drug therapy; Translations: [[facility] CURRENT DRUG THERAPY]Onset: 79-07-5335IqcfdemnIrqnu complications of ; puerperium affecting management of mother (1 source)Diseases of the respiratory system complicating childbirth; Translations: [DISEASES RESP SYS COMP CHILDBIRTH]Onset: 18-36-7992HnzkmgneUgtuj female genital disorders (4 sources)Other specified noninflammatory disorders of vagina; Translations: [OTH SPEC NONINFLAMMATORY D/O VAGINA]Onset: 20-83-8021DmyvrmjmRchdfzkw (3 sources)Maternal care for unspecified type scar from previous delivery; Translations: [MAT CARE UNS TYPE SCAR PREV C-SECT]Onset: 11-03-2021 EpisodicResidual codes; unclassified (4 sources)Contact with and (suspected) exposure to potentially hazardous body fluids; Translations: [CONTACT AND EXPOS POTENTL HAZ BDY FLUID]Onset: 12-10-2021 EpisodicResidual codes; unclassified (1 source)39 weeks gestation of ; Translations: [39 WEEKS GESTATION OF ]Onset: 93-67-9903TnjbpqzcBfkdymda codes; unclassified (1 source)Less than 8 weeks gestation of ; Translations: [< 8 WEEKS GESTATION ]Onset: 48-54-1133KswvjowvOyxiqncss and history of mental health and substance abuse codes (1 source)Personal history of nicotine dependence; Translations: [PERSONAL HISTORY OF NICOTINE DEPEND]Onset: 62-77-8368LnzeffsgZmuhfbckzsd injury; contusion (4 sources)Abrasion of left hand, initial encounter; Translations: [ABRASION LEFT HAND INITIAL ENC]Onset: 11-11-2848Emzuaffs Results Test NameValueInterpretationReference RangeFacilityTBH UA (CLEAN/CATCH) SWEATER DESIGNER/MICRO IF IND.on 08-41-0396LTDUIRGJF URINENegativeNEGATIVENOMS Healthcare BLOOD URINENegativeNEGATIVENOMS HealthcareClarity (U)CLEARCLEARNOMS Healthcare Color (U)YELLOWYELLOWNOMS HealthcareGLUCOSE URINE UANegativeNEGATIVE mg/dLNOCA HealthcareInterpretation and review of laboratory resultsAbnormalNOMS Healthcare Ketones Ql (U)TRACEAbnormalNEGATIVE mg/dLNOCA HealthcareLeukocyte esterase Test strip Ql (U)NegativeNEGATIVENOMS HealthcareNITRITE URINENegativeNEGATIVENOMS HealthcarepH (U)6.0 [pH]5.0 - 9.0NOMS HealthcarePROTEIN URINENegativeNEG/TRACE mg/dLNOMS HealthcareSPECIFIC GRAVITY URINE1.0201.005 - 1.025NOMS HealthcareURINE MICROSCOPIC INDICATEDNONOMS HealthcareUROBILINOGEN URINE0.2 EU/dL0.2 - 1.0 EU/dLNOMS HealthcareCLINISYNCNOMS HealthcareUrinalysis macro (dipstick) panel (U)on 70-09-2722Kzygfggbm, UANegativeNegative - 4(70) +++ mg/dLNOMS Healthcare Blood, UANegativeNegative - 50 Guy/mcLNOMS HealthcareClarity, UACloudyNOMS HealthcareColor, UAYellowNOMS HealthcareGlucose, UANegativeNegative - 2000(110) ++++ mg/dLNOCA HealthcareInterpretation and review of laboratory resultsAbnormal NOMS HealthcareKetones, UANegativeNegative - 160(16) ++++ mg/dLNOMS Healthcare Leukocytes, UANegativeNegative - 500+++ Corona/mcLNOMS HealthcareNitrite, UA NegativeNegative - PositiveNOMS HealthcarepH, UA8.05 - 9NOMS HealthcareProtein, UA1+Negative - 2000(20) ++++ mg/dLNOCA HealthcareSpec Grav, UA1.0251 - 1.03NOMS HealthcareUrobilinogen, UA1.00.2 - 12 mg/dLNOMS HealthcareNOMS HealthcareUS OB FOLLOW UP TRANSABDOMINAL APPROACHon 89-73-7931FK OB FOLLOW UP TRANSABDOMINAL APPROACHFINDINGS: Comparison September [...] Delivery: 01/25/25 Gestational Age as of 11/20/2024: 20o4bGoykjnumdd macro (dipstick) panel (U)on 44-06-0955Neemhedyk, UANegativeNegative - 4(70) +++ mg/dLNOMS HealthcareBlood, UANegativeNegative [...] mg/dLNOMS HealthcareNOMS HealthcareUrinalysis macro (dipstick) panel (U)on 84-37-9313Kslkzgnsa, UA NegativeNegative - 4(70) +++ mg/dLNOMS HealthcareBlood, UAPositiveNegative - 50 Guy/mcLNOMS HealthcareComment on above:TraceClarity, UAClearNOMS Healthcare Color, UAYellowNOMS HealthcareGlucose, UANegativeNegative - 2000(110) ++++ mg/dL NOMS HealthcareInterpretation and review of laboratory resultsAbnormalNOMS HealthcareKetones, UAPositiveNegative - 160(16) ++++ mg/dLNOMS HealthcareComment on above:1+Leukocytes, UANegativeNegative - 500+++ Corona/mcLNOMS Healthcare Nitrite, UANegativeNegative - PositiveNOMS HealthcarepH, UA65 - 9NOMS Healthcare Protein, UAPositiveNegative - 2000(20) ++++ mg/dLUTAH STATE HOSPITAL HealthcareComment on above:TraceSpec Grav, UA1.031 - 1.03NOCA HealthcareUrobilinogen, UA0.20.2 - 12 mg/dLSaint Francis Hospital & Health Services HealthcareALL CBC WITH AUTO DIFFon 40-45-4702TPZKISYID ABSOLUTE TFHZ6YJRD HealthcareBasophils/100 WBC (Bld)0.3 %0.2 - 2.0 %NOMSoutheast Missouri Community Treatment CenterEosinophils/100 WBC (Bld)1.2 %0.9 - 7.0 %[facility] SpringsErythrocyte distribution width (RBC) [Ratio]12.7 %11.0 - 15.0 %[facility] SpringsHematocrit (Bld) [Volume fraction]32 %Low36.0 - 48.0 %[facility] SpringsHemoglobin (Bld) [Mass/Vol]10.7 g/dLLow12.0 - 16.0 g/dLSaint Mary's Hospital of Blue SpringsIMMATURE GRANULOCYTES ABS AUTO0.24HighSaint Mary's Hospital of Blue SpringsImmature granulocytes/100 WBC (Bld)1.9 %High0.0 - 0.5 %[facility] SpringsInterpretation and review of laboratory resultsAbnormalSaint [facility] Hospital of Blue SpringsLYMPHOCYTES ABSOLUTE AUTO1.5NOFulton Medical Center- FultonLymphocytes/100 WBC (Bld) 12.3 %Low20.5 - 60.0 %[facility] CenterH (RBC) [Entitic mass]30.9 pg26.7 - 34.0 pgLafayette Regional Health CenterHC (RBC) [Mass/Vol]33.4 g/dL29.9 - 35.2 g/dLSaint Mary[facility] MCV (RBC) [Entitic vol]92.5 fL81.0 - 99.0 fLSaint Mary's Hospital of Blue SpringsMONOCYTES ABSOLUTE AUTO0.8NOMS [facility] HospitalMonocytes/100 WBC (Bld)6.2 %1.7 - 12.0 %[facility] NEUTROPHILS ABSOLUTE AUTO9.7HighSaint Mary's Hospital of Blue SpringsNeutrophils/100 WBC (Bld)78.1 % High43.0 - 75.0 %[facility] SpringsPlatelet mean volume (Bld) [Entitic vol]9.5 fL 9.5 - 13.5 fLSaint Mary's Hospital of Blue SpringsTBH EO #0.2NOMS HealthcareTBH [id number] Healthcare TBH RBC3.46LowNOMS HealthcareTBH WBC12.4HighNOMS HealthcareCLINISYNCNOMS HealthcareUrinalysis macro (dipstick) panel (U)on 08-96-5777Ceyvuanma, UA NegativeNegative - 4(70) +++ mg/dLNOMS HealthcareBlood, [...] 1.03N[facility]S Healthcare Urobilinogen, UA0.20.2 - 12 mg/dLNOMS HealthcareNOCA HealthcareUrinalysis macro (dipstick) panel (U)on 78-84-7183Rudkhfshy, UANegativeNegative - 4(70) +++ mg/dL NOMS HealthcareBlood, [...] mg/dLNOMS HealthcareNOMS HealthcareALL CBC WITH AUTO DIFFon 34-82-2457QPTOAIGZB ABSOLUTE DKST6IKUPFulton Medical Center- FultonBasophils/100 WBC (Bld)0.2 %0.2 - 2.0 %[facility] SpringsEosinophils/100 WBC (Bld)1.9 %0.9 - 7.0 %[facility] SpringsErythrocyte distribution width (RBC) [Ratio]12.6 %11.0 - 15.0 %[facility] SpringsHematocrit (Bld) [Volume fraction]29.6 %Low36.0 - 48.0 %[facility] SpringsHemoglobin (Bld) [Mass/Vol]9.9 g/dLLow12.0 - 16.0 g/dLSaint Mary's Hospital of Blue SpringsIMMATURE GRANULOCYTES ABS AUTO0.09HighSaint Mary's Hospital of [facility] Immature granulocytes/100 WBC (Bld)1 %High0.0 - 0.5 %[facility] Interpretation and review of laboratory resultsAbnormalSaint [facility] LYMPHOCYTES ABSOLUTE AUTO1.3NOFulton Medical Center- FultonLymphocytes/100 WBC (Bld)14 %Low20.5 - 60.0 %[facility] CenterH (RBC) [Entitic mass]31 pg26.7 - 34.0 pgLafayette Regional Health CenterHC (RBC) [Mass/Vol]33.4 g/dL29.9 - 35.2 g/dLLafayette Regional Health CenterV (RBC) [Entitic vol]92.8 fL81.0 - 99.0 fLSaint Mary's Hospital of Blue SpringsMONOCYTES ABSOLUTE AUTO0.6NOFulton Medical Center- FultonMonocytes/100 WBC (Bld)6.3 %1.7 - 12.0 %[facility] SpringsNEUTROPHILS ABSOLUTE AUTO7.3HighSaint Mary's Hospital of Blue SpringsNeutrophils/100 WBC (Bld)76.6 %High43.0 - 75.0 %[facility] SpringsPlatelet mean volume (Bld) [Entitic vol]9.6 fL9.5 - 13.5 fL [facility] SpringsTB EO #0.2NOMS [facility] Community HospitalTB [id number] [facility] RBC3.19Low [facility] WBC9.5[facility] SpringsCLINISYNCNFreeman Neosho HospitalUrinalysis macro (dipstick) panel (U)on 89-42-0621Qjeuakabk, UANegativeNegative - 4(70) +++ mg/dL NOMS HealthcareBlood, UANegativeNegative - 50 Gyu/mcLNOMS HealthcareClarity, UA ClearNOMS HealthcareColor, UAYellowNOMS HealthcareGlucose, UANegativeNegative - 2000(110) ++++ mg/dLNOMS HealthcareInterpretation and review of laboratory resultsNormalNOMS HealthcareKetones, UANegativeNegative - 160(16) ++++ mg/dLNOMS HealthcareLeukocytes, UANegativeNegative - 500+++ Corona/mcLNOMS HealthcareNitrite, UANegativeNegative - PositiveNOMS HealthcarepH, UA65 - 9NOMS HealthcareProtein, UANegativeNegative - 2000(20) ++++ mg/dLNOMS HealthcareSpec Grav, UA1.031 - 1.03 NOMS HealthcareUrobilinogen, UA1.00.2 - 12 mg/dLNOMS HealthcareNOMS HealthcareUS OB 14+ WEEKS ANATOMY SCANon 94-91-2930HN OB 14+ WEEKS ANATOMY SCANEXAM: US OB [...] II, MD, PHD at 14-Sep-2024 08:26:06 AM [facility] TeleradiologyNormalNot AvailableComment on above:Order Comment: US OB ANATOMY SINGLE W US OB CERVICAL LENGTH Estimated Date of Delivery: 01/25/25 Gestational Age as of 08/29/2024: 63r2xHLK,APTIMA HPV,AGE GDLNon 21-41-0190GVQ GDLN ACOG TESTINGNote.NOMS HealthcareComment on above:TESTS RESULT FLAG UNITS REF RANGE LAB Clinician Provided Cytology Information Source.............Endocervix No. of containers..01 ThinPrep Vial Age Mauryo PATTIOG Jenny... FLAG LEGEND: L-Low Normal,H-High Normal,LL-Alert Low,HH-Alert High <-Panic Low,>-Panic High,A-Abnormal,AA-Critical Abnormal Performed at: 01 =[address] [address] Isabelle Quiros MD, HPV APTIMANegativeNegativeNOMS HealthcareComment on above:This nucleic acid amplification test detects fourteen high- risk HPV types (16,18,31,33,35,39,45,51,52,56,58,59,66,68) without differentiation. Performed at: =[address] [id number] Rn Complex Care: Isabelle Quiros MD, Phone: [phone] Performed at: [address] [id number] Rn Complex Care: Isabelle Quiros MD, Phone: [phone] IGP, APTIMA HPV, RFX 16/18,45Note.NOMS HealthcareComment on above:TESTS RESULT FLAG UNITS REF RANGE LAB DIAGNOSIS: 02 NEGATIVE FOR INTRAEPITHELIAL LESION OR MALIGNANCY. Specimen adequacy: 02 Satisfactory for evaluation. No endocervical component is identified. Performed by: 02 Mya Carrasquillo, Surveillance Specialist (ASCP) . 02 Note: Note 02 The [...] <-Panic Low,>-Panic High,A-Abnormal,AA-Critical Abnormal Performed at: [address] [address] Isabelle Quiros MD, SPATULA-ALONE ENDOCERVIX CLINISYNCNOMS HealthcareRECURRENT VAGINITIS (HTRX)on 86-61-4085TSAFFXOQA VAGINAE 0NOMS HealthcareATOPOBIUM VAGINAENot detectedNOMS HealthcareBVAB 2,3 (BACTERIAL VAGINOSIS ASSOCIATED BACTERIA 2, 3); MOBILUNCUS SPP27.253AbnormalNOMS Healthcare BVAB 2,3 (BACTERIAL VAGINOSIS ASSOCIATED BACTERIA 2, 3); MOBILUNCUS SPPDetected AbnormalNOMS HealthcareCANDIDA ALBICANS, PARAPSILOSIS, LBTUHMVGCZ8LFDM HealthcareCANDIDA ALBICANS, PARAPSILOSIS, TROPICALISNot detectedNOMS Healthcare AKASH QYVEWCMI7HIAD HealthcareCANDIDA GLABRATANot detectedNOMS Healthcare AKASH IFPKYU1WLGZ HealthcareCANDIDA KRUSEINot detectedNOMS HealthcareCHLAMYDIA KUXITYQUONG9VASI HealthcareCHLAMYDIA TRACHOMATISNot detectedNOMS Healthcare GARDNERELLA RQFBTTOZJ00.264AbnormalNOMS HealthcareGARDNERELLA VAGINALISDetected AbnormalNOMS HealthcareInterpretation and review of laboratory resultsAbnormal NOMS HealthcareMEGASPHAERA (TYPES 1, 2)0NOMS HealthcareMEGASPHAERA (TYPES 1, 2) Not detectedNOMS HealthcareMYCOPLASMA TNFQTNPRXB5PDCV HealthcareMYCOPLASMA GENITALIUMNot detectedNOMS HealthcareNEISSERIA SPVUVDERGES6VVIY Healthcare NEISSERIA GONORRHOEAENot detectedNOMS HealthcareTET B, TET M27.391AbnormalNOMS HealthcareTET B, TET MDetectedAbnormalNOMS HealthcareTRICHOMONAS DXFLQYGHP9SYKD HealthcareTRICHOMONAS VAGINALISNot detectedNOMS HealthcareNOMS Healthcare Urinalysis macro (dipstick) panel (U)on 91-59-1729Ivcohouqd, UANegativeNegative - 4(70) +++ mg/dLNOMS HealthcareBlood, UANegativeNegative - 50 Guy/mcLNOMS HealthcareClarity, UAClearNOMS HealthcareColor, UAYellowNOMS HealthcareGlucose, UANegativeNegative - 2000(110) ++++ mg/dLNOMS HealthcareInterpretation and review of laboratory resultsNormalUTAH STATE HOSPITAL HealthcareKetones, UANegativeNegative - 160(16) ++++ mg/dLNOMS HealthcareLeukocytes, UANegativeNegative - 500+++ Corona/mcL NOMS HealthcareNitrite, UANegativeNegative - PositiveNOMS HealthcarepH, UA75 - 9 NOMS HealthcareProtein, UANegativeNegative - 2000(20) ++++ mg/dLNOMS Healthcare Spec Grav, UA1.011 - 1.03NOMS HealthcareUrobilinogen, UA0.20.2 - 12 mg/dLNOMS Harrison Community HospitalNOCA HealthcareUrinalysis macro (dipstick) panel (U)on 08-02-2024 Bilirubin, UANegativeNegative - 4(70) +++ mg/dLNOMS HealthcareBlood, UAPositive Negative - 50 Guy/mcLNOMS HealthcareComment on above:smallClarity, UAClearNOMS HealthcareColor, UAYellowNOMS HealthcareGlucose, UANegativeNegative - 2000(110) ++++ mg/dLNOMS HealthcareInterpretation and review of laboratory resultsAbnormal [facility] HealthcareKetones, UAPositiveNegative - 160(16) ++++ mg/dLNOMS Healthcare Comment on above:TraceLeukocytes, UANegativeNegative - 500+++ Corona/mcLNOMS HealthcareNitrite, UANegativeNegative - PositiveNOMS HealthcarepH, UA5.55 - 9 NOMS HealthcareProtein, UANegativeNegative - 1999(20) ++++ mg/dLNOMS Healthcare Spec Grav, UA1.031 - 1.03NOMS HealthcareUrobilinogen, UA0.20.2 - 12 mg/dLNOMS HealthcareNOCA HealthcareALL CBC WITH AUTO DIFFon 28-03-9970TLZLTDGVZ ABSOLUTE NWIZ4UXMT HealthcareBasophils/100 WBC (Bld)0.4 %0.2 - 2.0 %[facility] Eosinophils/100 WBC (Bld)2.4 %0.9 - 7.0 %[facility] SpringsErythrocyte distribution width (RBC) [Ratio]12.4 %11.0 - 15.0 %[facility] SpringsHematocrit (Bld) [Volume fraction]36.3 %36.0 - 48.0 %[facility] SpringsHemoglobin (Bld) [Mass/Vol]12.6 g/dL 12.0 - 16.0 g/dLSaint Mary's Hospital of Blue SpringsIMMATURE GRANULOCYTES ABS AUTO0.02NOMS [facility] Immature granulocytes/100 WBC (Bld)0.2 %0.0 - 0.5 %[facility] SpringsInterpretation and review of laboratory resultsAbnormalNOFulton Medical Center- FultonLYMPHOCYTES ABSOLUTE AUTO1.9NOMS [facility] HospitalLymphocytes/100 WBC (Bld)17.4 %Low20.5 - 60.0 %[facility] CenterH (RBC) [Entitic mass]31 pg26.7 - 34.0 pgLafayette Regional Health CenterHC (RBC) [Mass/Vol]34.7 g/dL29.9 - 35.2 g/dLSaint Mary's Hospital of [facility] SpringsMCV (RBC) [Entitic vol]89.4 fL 81.0 - 99.0 fLSaint Mary's Hospital of Blue SpringsMONOCYTES ABSOLUTE AUTO0.7NOMS [facility] Monocytes/100 WBC (Bld)6.7 %1.7 - 12.0 %[facility] SpringsNEUTROPHILS ABSOLUTE AUTO 7.8HighNOFulton Medical Center- FultonNeutrophils/100 WBC (Bld)72.9 %43.0 - 75.0 %[facility] SpringsPlatelet mean volume (Bld) [Entitic vol]9.5 fL9.5 - 13.5 fLSaint Mary's Hospital of Blue SpringsTBH EO #0.3NOMS [facility] HospitalTB CLM956CDOCFulton Medical Center- FultonTB RBC4.06LowNOFulton Medical Center- FultonTB WBC10.7NOCA HealthcareCLINISYNCNOMS HealthcareBOX TESTon 68-75-6575QKB TEST SENT OUTYESNOCA AqfliiasjyRTV1QSMRZMNYJ QiyfphytvfXUP92/10/25 [facility] HealthcareUNITY BOX CLINISYNCNOCA HealthcareUS OB TRANSVAGINALon 09-93-7982XI OB TRANSVAGINALEXAM: US OB TRANSVAGINAL HISTORY: Dating. [...] II, MD, PHD at 06-Jul-2024 12:18:02 PM [facility] TeleradiologyNormalNot AvailableComment on above:Order Comment: US OB TRANSVAGINAL No LMP recorded.PAP ACOG PANEL 2: 30 to 65on 03-16-2022..NormalThe [facility] Hospitals Geauga Medical CenterComment on above:Result Comment: Performed at: WBPerformed By: #### HIV12 #### [facility] [address] [place] [address] Dr. Nolvia Dugan Gdln ACOG Zqjqyeq06-13XscbmbGeyKettering Health – Soin Medical CenterComment on above:Performed By: #### HIV12 #### [facility] [address], [place] [address] Dr. Nolvia RuvalcabaDIAGNOSIS:CommentNoMercy Health Lorain Hospital on above: Result Comment: NEGATIVE FOR INTRAEPITHELIAL LESION OR MALIGNANCY. Performed at: WBPerformed By: #### HIV12 #### [facility] [address] [place] [address] Dr. Nolvia Oliveira AptimaNegativeNormalNegativeThe [facility] on above:Result Comment: This nucleic acid amplification test detects fourteen high-risk HPV types (16,18,31,33,35,39,45,51,52,56,58,59,66,68) without differentiation. Performed at: =GPerformed By: #### HIV12 #### [facility] [address] [place] [address] Dr. Nolvia Oliveira Genotype ReflexCommentNoMercy Health Lorain Hospital on above:Result Comment: Criteria not met, HPV Genotype not performed. Performed at: WBPerformed By: #### HIV12 #### [place] [address] Dr[address] Nolvia RuvalcabaMethodology:CommentBluffton Hospital on above: Result Comment: This liquid based ThinPrep(R) pap test was screened with the use of an image guided system. Performed at: WBPerformed By: #### HIV12 #### [place] [place] [address] Dr. Nolvia RuvalcabaNote:CommentBluffton Hospital on above:Result Comment: The Pap smear is a screening test designed to aid in the detection of premalignant and malignant conditions of the uterine cervix. It is not a diagnostic procedure and should not be used as the sole means of detecting cervical cancer. Both false-positive and false-negative reports do occur. . Performed at: WBPerformed By: #### HIV12 #### [facility] [address] [place] [address] Dr. Nolvia RuvalcabaPerformed by:CommentBluffton Hospital on above: Result Comment: Inessa Sanchez Executive Chairman (ASCP) Performed at: WBPerformed By: #### HIV12 #### [place] [address] [address] Nolvia Marin adequacy:CommentNormalThe [facility] on above:Result Comment: Satisfactory for evaluation. Endocervical and/or squamous metaplastic cells (endocervical component) are present. Performed at: WBPerformed By: #### HIV12 #### [facility] [address] [address] [address] Nolvia CaiTIS C ANTIBODYon 23-02-7107Jtk C Virus Ab<0.6Itekah9.0-0.9 [facility] on above:Result Comment: Negative: < 0.8 Indeterminate: [...] Hepatitis C Virus (HCV) RNA, Diagnosis, THERON (021202) and Hepatitis C Virus (HCV) Antibody with reflex to Quantitative Real-time PCR ([id number]).Performed By: #### HIV12 #### [facility] [address] [place] [address] Dr. Nolvia Tomlin 1 AND 2 WITH REFLEXon 83-90-6029YDQ Screen 4th Generation wRfxNon-ReactiveNormalNon ReactiveThe [facility] on above:Result Comment: HIV Negative HIV-1/HIV-2 antibodies and HIV-1 p24 antigen were NOT detected. There is no laboratory evidence of HIV infection.Performed By: #### HIV12 #### [facility] [address] [place] [address] Dr. Nolvia Byokin [id number] [Catalytic activity/Vol]59 U/PPfezgz59-59Tcw [facility] on above:Performed By: #### ALT ####[facility] [address] [place] [address]Dr.Yilan Pike AUTO DIFFon 17-72-1293PGVE #0.1 103/ulNormal0.0-0.1The [facility] on above: Performed By: #### CBC ####[facility] [address] [place] [address]Dr.Yilan ChangBasophils/100 WBC (Bld)0.4 %Normal 0.2-2.0The [facility] CenterComment on above:Performed By: #### CBC ####[facility] [address] [place] [address]Dr.Yilan ChangEO # 0.2 103/ulNormal0.0-0.7The [facility] CenterComment on above:Performed By: #### CBC ####[facility] Ihpptpyevo[address] [place], [place] [address]Dr. Yilan ChangEosinophils/100 WBC (Bld)1.3 %Normal0.9-7.0The [facility] Comment on above:Performed By: #### CBC ####[facility] Bnmspvlarg[address] [place], [place] [address]Dr.Yilan ChangErythrocyte distribution width (RBC) [Ratio]14.2 %Zfhtur25.0-15.0The [facility] CenterComment on above: Performed By: #### CBC ####[facility] Uxfbeotetx[address] [place], [place] [address]Dr.Yilan ChangHematocrit (Bld) [Volume fraction]28.8 % Critically low36.0-48.0The [facility] CenterComment on above:Performed By: #### CBC ####[facility] Uvtzlahtie[address] [place], [place] [address]Dr. Yilan ChangHemoglobin (Bld) [Mass/Vol]9.0 g/dLCritically low12.0-16.0The [facility] CenterComment on above:Performed By: #### CBC ####[facility] Rkcafoxejf[address] [place], [place] [address]Dr.Yilan ChangIG #0.16 10e3/ulCritically high0.00-0.03The [facility] CenterComment on above:Performed By: #### CBC ####[facility] Fhasqssdho[address] [place], [place] [address]Dr.Yilan ChangIG %1.1 %Critically high0.0-0.5The [facility] CenterComment on above:Performed By: #### CBC ####[facility] Eenyaghjsf[address] [place], [place] [address]Dr.Nolvia AgarwalH #1.8 103/ulNormal1.2-3.8The [facility] CenterComment on above:Performed By: #### CBC ####[facility] Xjkgkhfnvm[address] [place], [place] [address]Dr.Nolvia RuvalcabaLymphocytes/100 WBC (Bld)12.4 %Critically low20.5-60.0The [facility] HospitalComment on above: Performed By: #### CBC ####[facility] Mebbnmujgt[address] [place], [place] [address]Dr.Nolvia RuvalcabaMANUAL DIFF REQNONormalThe [facility] CenterComment on above:Performed By: #### CBC ####[facility] Bwvaqwduca91[address] [place], [place] [address]Dr.Nolvia RuvalcabaBATAVIA V[facility] (RBC) [Entitic mass]28.6 goVrxsri41.7-34.0The [facility] CenterComment on above: Performed By: #### CBC ####[facility] Vcnwdypchu[address] [place], [place] [address]Dr.Nolvia RuvalcabaHC (RBC) [Mass/Vol]31.3 g/dLNormal 29.9-35.2The [facility] CenterComment on above:Performed By: #### CBC ####[facility] Ylfkxeoajn[address] [place], [place] [address]Dr. Nolvia RuvalcabaV (RBC) [Entitic vol]91.4 tUYwslxi32.0-99.0The [facility] Comment on above:Performed By: #### CBC ####[facility] Npmkevmjto875[address] [place], [place] [address]Dr.Nolvia TothO #1.0 103/ulCritically high0.3-0.8The [facility] HospitalComment on above:Performed By: #### CBC ####[facility] Amwomlsvbk8[address] [place], [place] [address]Dr. Yilan ChangMonocytes/100 WBC (Bld)6.9 %Normal1.7-12.0The [facility] Comment on above:Performed By: #### CBC ####[facility] [address] [place] [address]Dr.Nolvia RuvalcabaNEUT #11.3 103/ulCritically high1.4-6.5The [facility] CenterComment on above:Performed By: #### CBC ####[facility] Zrccgbmudl90[address] [place], [place] [address]Dr. Liyalan JordonNeutrophils/100 WBC (Bld)77.9 %Critically high43.0-75.0The [facility] CenterComment on above:Performed By: #### CBC ####[facility] Yqsmfjwaho75[address] [place], [place] [address]Dr.Nolvia ChangPlatelet mean volume (Bld) [Entitic vol]9.8 fLNormal9.5-13.5The [facility] CenterComment on above:Performed By: #### CBC ####[facility] Vngpyqlqxs[address] [place], [place] [address]Dr.Nolvia IldvxTTY540 103/zlIakacd054-744Lvz [facility] CenterComment on above:Performed By: #### CBC ####[facility] Okpxsrnapz2378[address] [place], [place] [address]Dr.Nolvia ChangRBC3.15 106/ul Critically low4.20-5.40The [facility] CenterComment on above:Performed By: #### CBC ####[facility] Rszlgchoeg[address] [place], [place] [address]Dr. Nolvia IbsyzPEC32.6 103/ulCritically high4.0-11.0The [facility] CenterComment on above:Performed By: #### CBC ####[facility] Rrciorjfyv[address] [place], [place] [address]Dr.Nolvia RuvalcabaCBC AUTO DIFFon 01-41-8560CAJL #0.1 103/ulNormal0.0-0.1The [facility] CenterComment on above:Performed By: #### CBC ####[facility] [address]thu[address] [place] [address]Dr. Yilan ChangBasophils/100 WBC (Bld)0.3 %Normal0.2-2.0The [facility] CenterComment on above:Performed By: #### CBC ####[facility] Nojqmldxrc5790[address] [place], [place] [address]Dr.Yilan ChangEO #0.1 103/ulNormal0.0-0.7The [facility] CenterComment on above:Performed By: #### CBC ####[facility] Kybsfeeqac784[address] [place], [place] [address]Dr.Yilan ChangEosinophils/100 WBC (Bld)1.0 %Normal0.9-7.0The [facility] CenterComment on above:Performed By: #### CBC ####[facility] Mpuirygkyw2765[address] [place], [place] [address]Dr.Yilan ChangErythrocyte distribution width (RBC) [Ratio]14.2 %Normal 11.0-15.0The [facility] CenterComment on above:Performed By: #### CBC ####[facility] Etkwkkymly54[address] [place], [place] [address]Dr. Liyayaniv ChangHematocrit (Bld) [Volume fraction]33.5 %Critically low36.0-48.0The [facility] CenterComment on above:Performed By: #### CBC ####[facility] Ozumaqasjj0168[address] [place], [place] [address]Dr.Nolvia ChangHemoglobin (Bld) [Mass/Vol]10.9 g/dLCritically low12.0-16.0The [facility] CenterComment on above:Performed By: #### CBC ####[facility] Vnnppchtqi[address] [place], [place] [address]Dr.Yilan ChangIG #0.22 10e3/ulCritically high0.00-0.03 The [facility] CenterComment on above:Performed By: #### CBC ####[facility] Iksocytvzp436[address] [place], [place] [address]Dr.Yilan ChangIG % 1.5 %Critically high0.0-0.5The [facility] CenterComment on above:Performed By: #### CBC ####[facility] [address]amdr[address] [place] [address]Dr.Nolvia RuvalcabaLYMPH #2.3 103/ulNormal1.2-3.8The [facility] HospitalComment on above:Performed By: #### CBC ####[facility] Qcudjqozpm7[address] [place], [place] [address]Dr.Nolvia RuvalcabaLymphocytes/100 WBC (Bld)16.1 % Critically low20.5-60.0The [facility] CenterComment on above:Performed By: #### CBC ####[facility] Agmsnsleht4177[address] [place], [place] [address]Dr. Nolvia RuvalcabaMANUAL DIFF REQNONormalThe [facility] CenterComment on above: Performed By: #### CBC ####[facility] Cxsltkddrm4494[address] [place], [place] [address]Dr.Nolvia RuvalcabaH (RBC) [Entitic mass]29.0 pgNormal 26.7-34.0The [facility] CenterComment on above:Performed By: #### CBC ####[facility] Brwcqeyopk[address] [place], [place] [address]Dr. Nolvia RuvalcabaMCHC (RBC) [Mass/Vol]32.5 g/yNWldwng14.9-35.2The [facility] Comment on above:Performed By: #### CBC ####[facility] Tdeyypnyzy[address] [place], [place] [address]Dr.Nolvia RuvalcabaMCV (RBC) [Entitic vol]89.1 fL Dmwujx08.0-99.0The [facility] CenterComment on above:Performed By: #### CBC ####[facility] Pgjppgjqtr[address] [place], [place] [address]Dr. Nolvia RuvalcabaMONO #1.0 103/ulCritically high0.3-0.8The [facility] CenterComment on above:Performed By: #### CBC ####[facility] Oedqsatlql[address] [place], [place] [address]Dr.Nolvia JordonMonocytes/100 WBC (Bld)7.0 %Normal 1.7-12.0The [facility] CenterComment on above:Performed By: #### CBC ####[facility] [address] [place] [address]DrDinorah AnneUT #10.6 103/ulCritically high1.4-6.5The [facility] CenterComment on above:Performed By: #### CBC ####[facility] Kspaffgnow[address] [place], [place] [address]Dr.Nolvia RuvalcabaNeutrophils/100 WBC (Bld)74.1 %Normal 43.0-75.0The [facility] CenterComment on above:Performed By: #### CBC ####[facility] Cedcplekwj[address] [place], [place] [address]DrDinorah RuvalcabaPlatelet mean volume (Bld) [Entitic vol]10.4 fLNormal9.5-13.5The [facility] CenterComment on above:Performed By: #### CBC ####[facility] Pqfvauovtk[address] [place], [place] [address]DrAngel RuvalcabaPLT320 103/ul Hqotxo034-571Ite [facility] CenterComment on above:Performed By: #### CBC ####[facility] Zddqyrktaq22[address] [place], [place] [address]Dr. Nolvia RuvalcabaRBC3.76 106/ulCritically low4.20-5.40The [facility] CenterComment on above:Performed By: #### CBC ####[facility] Tloadsaxys[address] [place], [place] [address]DrAngel RuvalcabaWBC14.3 103/ulCritically high4.0-11.0The [facility] CenterComment on above:Performed By: #### CBC ####[facility] Yansliscae[address] [place], [place] [address]Dr.Yilan RuvalcabaCULTURE URINEon [id number] URINECulture Observations: NO GROWTH.NormalThe [facility] CenterComment on above:Performed By: #### URCX #### [facility] [address] [place] [address] Dr. Nolvia Jc SCREEN RAPID (URINE)on 44-03-3592TGVXuhfbtocCbfnymPBBMXCTY The [facility] CenterComment on above:Performed By: #### DRUGRPD ####[facility] Tiqkcwojrq[address] [place], [place] [address]Dr. Nolvia RuvalcabaBAR NegativeNormalNEGATIVECherrington HospitalComment on above:Performed By: #### DRUGRPD ####[facility] Rvwtqooapi[address] [place], [place] [address]Dr. Nolvia RuvalcabaBUPNegativeNormalNEGATIVECherrington HospitalComment on above:Performed By: #### DRUGRPD ####[facility] Egygxwezcx[address] [place], [place] [address]Dr. Nolvia RuvalcabaBZONegativeNormalNEGATIVECherrington HospitalCommary [facility] on above:Performed By: #### DRUGRPD ####[facility] Jrfirwdjkr8533[address] [place], [place] [address]Dr. Nolvia RuvalcabaCOCNegative NormalNEGATIVECherrington HospitalComment on above:Performed By: #### DRUGRPD ####[facility] Jdmioitkez93[address] [place], [place] [address]Dr. Nolvia RuvalcabaCUT-OSS HEALTHE [facility] Medical CenterCommary [facility] hospital on above:Result Comment: AMP (Amphetamine): 500ng/mL, BAR (Barbituates): 200 ng/mL, BZO (Benzodiazepines): 150 ng/mL, BUP (Buprenorphine): 10 ng/mL, MARIO (Cocaine): 150 ng/mL, mAMP (Methamphetamine): 500 ng/mL, MTD (Methadone): 200 ng/mL, OPI (Opiates): 100 ng/mL, OXY (Oxycodone): 100 ng/mL, PCP (Phencyclidine): 25 ng/mL, PPX (Propoxyphene): 300 ng/mL, THC (Cannabinoids): 50 ng/mL, TCA (Trycyclic Antidepressants): 300 ng/mLPerformed By: #### DRUGRPD ####[facility] Szhwegkgnx[address] [place], [place] [address]Dr. Nolvia Jc CUT HEADERDRUG CLASS TEST SYSTEM CUT-OFF CONCENTRATIONS ARE FOLLOWS:NormalThe [facility] HospitalComment on above:Performed By: #### DRUGRPD ####[facility] [address]hkm[address] [place] [address]Dr. Yilan ChangmAMP NegativeNormalNEGATIVEMemorial Hospital HospitalComment on above:Performed By: #### DRUGRPD ####[facility] Oevjorknhe[address] [place], [place] [address]Dr. Yilan ChangMTDNegativeNormalNEGATIVEMemorial Hospital HospitalComment on above:Performed By: #### DRUGRPD ####[facility] Rzuojhknvm[address] [place], [place] [address]Dr. Yilan ChangOPINegativeNormalNEGATIVEMemorial Hospital HospitalComment on above:Performed By: #### DRUGRPD ####[facility] Tbedjvjieo[address] [place], [place] [address]Dr. Yilan ChangOXYNegative NormalNEGATIVEMemorial Hospital HospitalComment on above:Performed By: #### DRUGRPD ####[facility] Epwrzrsqqz[address] [place], [place] [address]Dr. Yilan ChangPCPNegativeNormalNEGATIVEMemorial Hospital HospitalComment on above: Performed By: #### DRUGRPD ####[facility] Rpwtklkaws[address] [place], [place] [address]Dr. Yilan ChangPPXNegativeNormalNEGATIVEMemorial Hospital HospitalComment on above:Performed By: #### DRUGRPD ####[facility] Lxqavuwhuh[address] [place], [place] [address]Dr. Yilan ChangTCANegative NormalNEGATIVEMemorial Hospital HospitalComment on above:Performed By: #### DRUGRPD ####[facility] Iurvdqdfez[address] [place], [place] [address]Dr. Yilan ChangTHCNegativeNormalNEGATIVEMemorial Hospital HospitalComment on above: Performed By: #### DRUGRPD ####[facility] Ewfzlfytqi[address] [place], [place] [address]Dr. Yilan ChangTYPE AND SCREENon 26-42-3031TQJA AND SCREENNegativeNormalThe [facility] HospitalComment on above:Performed By: #### TNS #### [facility] [address] [address] [address] Nolvia Sánchez (CLEAN/CATCH) SWEATER DESIGNER/MICRO IF IND.on 35-22-3856Ubrbrzgzu Ql (U) NegativeNormalNEGATIVEMemorial Hospital HospitalComment on above:Performed By: #### MAUREEN DEVRIESCSIND ####[facility] [address]xs[address]qu[address] [place] [address]Dr. Nolvia RuvalcabaClarity (U)SL CLOUDYAbnormalCLEARThMercy Health St. [facility] Comment on above:Performed By: #### VENKATESH DEVRIESIND ####[facility] [address]chj[address] [place] [address]Dr. Nolvia RuvalcabaColor (U)LT. YELLOWNormalYELLOWMemorial Hospital HospitalComment on above:Performed By: #### MAUREEN DEVRIESCSIND ####[facility] [address]hrjx[address] [place] [address]Dr. Nolvia RuvalcabaGlucose Ql (U)NegativeNormalNEGATIVEMemorial Hospital HospitalComment on above:Performed By: #### VENKATESH DEVRIESIND ####[facility] R[address]dtsrnow[address] [place] [address]Dr. Nolvia Ruvalcaba Hemoglobin Ql (U)SMALLAbnormalNEGATIVEMemorial Hospital HospitalComment on above: Performed By: #### MAUREEN DEVRIESCSIND ####[facility] Molrlwtjzw[address] [place] [address]Dr. Nolvia RuvalcabaKetones Ql (U)NegativeNormal NEGATIVEMemorial Hospital HospitalComment on above:Performed By: #### MAUREEN DEVRIESCSIND ####[facility] Hkvwcdcskb[address] [place], [place] [address]Dr. Nolvia RuvalcabaLEUKOCYTESSMALLAbnormalNEGATIVEMemorial Hospital HospitalComment on above: Performed By: #### MAUREEN DEVRIESCSIND ####[facility] [address]pszkqnd[address] [place] [address]Dr. Yilan ChangNitrite Ql (U)NegativeNormal NEGATIVEThe [facility] CenterComment on above:Performed By: #### VENKATESH DEVRIESIND ####[facility] Mntgryimsc[address] [place] [address]Dr. Nolvia ChangpH (U)6.0 [pH]Normal5-9The [facility] CenterComment on above: Performed By: #### VENKATESH DEVRIESIND ####[facility] Mutmalmnun[address] [place], [place] [address]Dr. Liyayaniv ChangSPEC GRAVITY>=1.030Abnormal 1.005-<=1.025The [facility] CenterComment on above:Performed By: #### VENKATESH DEVRIESIND ####[facility] Urqjxnnovc[address] [place], [place] [address]Dr. Nolvia RuvalcabaUA PROTEINNegativeNormalNEGATIVE/ TRACEThe [facility] Comment on above:Performed By: #### VENKATESH DEVRIESIND ####[facility] Wujtkuegdn[address] [place], [place] [address]Dr. Nolvia ChangUR MICRO IND INDICATEDMorrow County HospitalComment on above:Performed By: #### WILLIAM DEVRIES ####[facility] Yerdkfpxvj[address] [place], [place] [address]Dr. Nolvia RuvalcabaUrobilinogen Qn (U)0.2 {Cami'U}/dLNormal0.2 - 1.0The [facility] CenterComment on above:Performed By: #### WILLIAM DEVRIES ####[facility] Tyhgfwasjp[address] [place], [place] [address]Dr. Nolvia RuvalcabaURINE MICROSCOPIC ONLYon 09-29-3209YUNIVZJFXWDAIQTDJwxuteesEQPB SEEN The [facility] CenterComment on above:Performed By: #### VENKATESH DEVRIESIND ####[facility] Ewtqowupqw[address] [place], [place] [address]Dr. Nolvia RuvalcabaBacteria identified Cx Nom (U)[facility] Comment on above:Performed By: #### WILLIAM DEVRIES ####[facility] [address]ydrsdlk[address] [place] [address]Dr. Nolvia ChangCASTNONE SEEN NormalNONE SEENThe [facility] CenterCommary free bed rehabilitation hospital on above:Performed By: #### KAYCE UACSIND ####[facility] Qkayailtiv[address] [place] [address]Dr. Nolvia JordonCrystals LM Nom (Urine sed)NONE SEENNormalNONE SEENThe [facility] CenterCommary [facility] bed rehabilitation hospital on above:Performed By: #### KAYCE UACSIND ####[facility] Tonwsaakri[address] [place] [address]Dr. Nolvia ChangEpithelial cells LM Ql (Urine sed)MODERATEAbnormalNONE SEEN /RAREThe [facility] CenterCommary [facility] bed rehabilitation hospital on above:Performed By: #### KACYE UACSIND ####[facility] Wruovidigu[address] [place] [address]Dr. Nolvia RuvalcabaMUCOUSNONE SEENNormalNONE SEENThe [facility] CenterCommary [facility] rehabilitation hospital on above: Performed By: #### KAYCE UACSIND ####[facility] Bgzgsilkka[address] [place] [address]Dr. Nolvia RuvalcabaXrmxwVVE7-4Qtssuype9-5Tlp [facility] CenterCommary [facility] on above:Performed By: #### KAYCE UACSIND ####[facility] M[address]wkspbfg[address] [place] [address]Dr. Nolvia RuvalcabaWBC 5-10AbnormalNONE SEENThe [facility] CenterCommary [facility] rehabilitation hospital on above:Performed By: #### KAYCE UACSIND ####[facility] Dpmoveoans[address] [place], [place] [address]Dr. Nolvia RuvalcabaCovid-19 PCR (CVDTBH)on 04-66-6085OOBV-CoV-2 (COVID-19) RNA THERON+probe Ql (Unsp spec)Not detectedNormalNOT DETECTEDThe [facility] Comment on above:Result Comment: This test is not yet approved or cleared by the [place] FDA. When there are no FDA-approved or cleared tests available, and other criteria are met, FDA can make tests available under an emergency access mechanism called an Emergency Use Authorization (EUA). The EUA for this test is supported by the [place] of Health and Human Service's (HHS's) declaration [...] SARS-CoV-2.Performed By: #### HIV12 #### [facility] [address] [place] [address] Dr. Nolvia Jain B STREP CULTUREon 10-14-2021. agalactiae Ag Ql (Unsp spec) Culture Observations: NEGATIVE FOR GROUP B STREPTOCOCCUS.[facility] on above: Performed By: #### GBSCX #### [facility] [address] [place] [address] Dr. Nolvia Wade RNA BY PCR QUANT (NON-GRAPHICAL) Won 82-24-6470LXO Genotype RTNIMorrow County HospitalCommary free bed rehabilitation hospital on above:Result Comment: Not indicated Performed By: #### HCVPCRN ####[facility] [facility] [address] [place], [place] [address]DrDinorah RuvalcabaHCV blk46QZQJFPFnyiqcHmoMorrow County HospitalCommary free bed rehabilitation hospital on above:Result Comment: Unable to calculate result since non- numeric result obtained for component test.Performed By: #### HCVPCRN ####[facility] M[address] [place], [place] [address]DrDinorah Velazquezpatitis C QuantitationNot detectedMorrow County HospitalComment on above:Performed By: #### HCVPCRN ####[facility] [address] [address]Dr. Nolvia RuvalcabaTest Information:[facility] on above: Result Comment: The quantitative range of this assay is 15 IU/mL to 100 million IU/mL.Performed By: #### HCVPCRN ####[facility] [address] [address]DrDinorah RuvalcabaHIV 1 AND 2 WITH REFLEXon 65-38-7163DSP Screen 4th Generation wRfxNon-ReactiveNormalNon ReactiveCherrington Hospital Comment on above:Result Comment: HIV Negative HIV-1/HIV-2 antibodies and HIV-1 p24 antigen were NOT detected. There is no laboratory evidence of HIV infection.Performed By: #### A1C #### [facility] Laboratory [address] [place] [address] Dr. Nolvia RuvalcabaRPR QUANTon 53-65-7098Fizzy Plasma Reagin, QuantNon-Reactive NormalNonRea<1:1The [facility] CenterComment on above:Result Comment: Please Note: This test does not meet current guidelines for screening and diagnosis of syphilis. This test is intended for following treatment response in patients being treated for syphilis infection. To screen for syphilis infection, a reflex cascade that includes both RPR and a treponema-specific assay should be utilized, such as Treponema pallidum (Syphilis) Screening Beaver (599900) or Rapid Plasma Reagin (RPR) Test With Reflex to Quantitative RPR and Confirmatory Treponema pallidum Antibodies (856329).Performed By: #### HIV12 #### [facility] Laboratory [address] [place] [address] Dr. Nolvia RuvalcabaGLUCOSE - 1HRon 71-59-8976Euecjol [Mass/Vol]124 mg/dLCritically erdj67-047Mft [facility] CenterComment on above:Performed By: #### GLU1HR ####[facility] [address] [address]DrDinorah RuvalcabaHEMOGRAM AND PLATELon 82-12-8184Adweyooaps (Bld) [Volume fraction] 33.2 %Critically low36.0-48.0The [facility] Northment on above:Performed By: #### HIV12 #### [facility] Laboratory [address] [place] [address] Dr. Nolvia RuvalcabaHemoglobin (Bld) [Mass/Vol]10.5 g/dLCritically low12.0-16.0The [facility] CenterComment on above:Performed By: #### HIV12 #### [facility] Laboratory [address] [place] [address] Dr. Nolvia Verdin (RBC) [Entitic mass]29.4 bfZlluwe91.7-34.0The [facility] CenterComment on above:Performed By: #### HIV12 #### [facility] Laboratory [address] [place] [address] Dr. Nol[facility] RuvalcabaBROO[facility] (RBC) [Mass/Vol]31.6 g/xREvlgmh77.9-35.2The [facility] CenterComment on above:Performed By: #### HIV12 #### [facility] Laboratory [address] [place] [address] Dr. Nolvia Verdin (RBC) [Entitic vol]93.0 uJQyphwa28.0-99.0The [facility] CenterComment on above:Performed By: #### HIV12 #### [facility] Laboratory [address] [place] [address] Dr. Nolvia RuvalcabaPLT303 103/rwDanbzu961-194Wou [facility] CenterComment on above: Performed By: #### HIV12 #### [facility] Laboratory [address] [place] [address] Dr. Nolvia RuvalcabaRBC3.57 106/ulCritically low4.20-5.40The [facility] CenterComment on above:Performed By: #### HIV12 #### [facility] Laboratory [address] [place] [address] Dr. Nolvia RuvalcabaWBC12.3 103/ulCritically high4.0-11.0The [facility] CenterComment on above:Performed By: #### HIV12 #### [facility] Laboratory [address] [place] [address] Dr. Nolvia Posadas PREG PLACENTAon 57-12-2152IU PREG PLACENTAEXAMINATION: US PREG PLACENTA HISTORY: Low lying placenta COMPARISON: Ultrasound placenta 07/30/2021 FINDINGS: PLACENTA: Posterior with lower margin 3.8 cm from os. CERVIX LENGTH: 4.6 cm; closed. HEART RATE: 138 bpm OTHER: None. IMPRESSION: 1. Posterior placenta which is no longer low-lying. Electronically authenticated by: FRANCIA CRENSHAW Date: 2021-08-18 16:15NormalCherrington HospitalUS PREG PLACENTAon 19-13-3325OD PREG PLACENTAEXAMINATION: US PREG PLACENTA HISTORY: Placenta previa without hemorrhage COMPARISON: Ultrasound anatomy 06/18/2021 FINDINGS: PLACENTA: Posterior, grade 1, with lower margin 2.5 cm from os. CERVIX LENGTH: 3.7 cm, closed. HEART RATE: 134 bpm OTHER: None. IMPRESSION: 1. Low lying posterior placenta with margin 2.5 cm from os. Electronically authenticated by: FRANCIA CRENSHAW Date: 2021-07-30 17:39[facility] C RNA BY PCR QUANT (NON-GRAPHICAL) Won 79-57-1030VGS GenotypeRTNIMorrow County HospitalComment on above:Result Comment: Not indicatedPerformed By: #### HCVPCRN ####[facility] Q[address] [place], [place] [address]Dr. Yilan ChangHCV bxo03FZCNZRIkurydYuoMorrow County HospitalComment on above:Result Comment: Unable to calculate result since non- numeric result obtained for component test.Performed By: #### HCVPCRN ####[facility] [address] [place], [place] [address]Dr. Yilan ChangHepatitis C QuantitationNot detectedMorrow County HospitalComment on above:Performed By: #### HCVPCRN ####[facility] Guaieopdfv[address] [place], [place] [address]Dr. Yilan ChangTest Information:[facility] CenterComment on above: Result Comment: The quantitative range of this assay is 15 IU/mL to 100 million IU/mL.Performed By: #### HCVPCRN ####[facility] Yupeypkciq[address] [place], [place] [address]Dr. Yilan ChangHIV 1 AND 2 WITH REFLEXon 67-44-3074MTM Screen 4th Generation wRfxNon-ReactiveNormalNon ReactiveCherrington Hospital Comment on above:Result Comment: HIV Negative HIV-1/HIV-2 antibodies and HIV-1 p24 antigen were NOT detected. There is no laboratory evidence of HIV infection.Performed By: #### HIV12 ####[facility] [address] [place], [place] [address]OqDr. Nolvia StreetR QUANTon 19-35-4848Vsekk Plasma Reagin, QuantNon-ReactiveNormal NonRea<1:1The [facility] CenterComment on above:Result Comment: Please Note: This test does not meet current guidelines for screening and diagnosis of syphilis. This test is intended for following treatment response in patients being treated for syphilis infection. To screen for syphilis infection, a reflex cascade that includes both RPR and a treponema-specific assay should be utilized, such as Treponema pallidum (Syphilis) Screening Beaver (965609) or Rapid Plasma Reagin (RPR) Test With Reflex to Quantitative RPR and Confirmatory Treponema pallidum Antibodies (861629).Performed By: #### RPRQ #### [facility] Laboratory [address] [place], [place] [address] Dr. Nolvia Posadas PREG ANATOMY SINGLEon 29-22-3375UV PREG ANATOMY SINGLE EXAMINATION: US PREG ANATOMY [...] Electronically authenticated by: KASEY NYE Date: 2021-06-18 16:55NormMarion HospitalHEP B SURFACE AB QUALITATIVEon 97-58-1057Vnq B Surface Ab, Qual ReactiveNoKettering Health – Soin Medical CenterComment on above:Result Comment: Non Reactive: Inconsistent with immunity, less than 10 mIU/mL Reactive: Consistent with immunity, greater than 9.9 mIU/mLPerformed By: #### HBSABQL ####[facility] D[address] [place], [place] [address]DrDinorah CaiTIS C ANTIBODYon 18-44-5867Uia C Virus Ab<0.2Rrhcox2.0-0.9The [facility] on above:Result Comment: Negative: < 0.8 Indeterminate: 0.8 - 0.9 Positive: > 0.9 . The CDC recommends that a positive HCV antibody result be followed up with a HCV Nucleic Acid Amplification test (750111).Performed By: #### HIV12 #### [facility] Laboratory [address] [place] [address] Dr. Nolvia Tomlin 1 AND 2 WITH REFLEXon 54-08-4548LYO Screen 4th Generation wRfxNon-ReactiveNormalNon ReactiveThe [facility] on above:Result Comment: HIV Negative HIV-1/HIV-2 antibodies and HIV-1 p24 antigen were NOT detected. There is no laboratory evidence of HIV infection.Performed By: #### HIV12 ####[facility] [address] [place], [place] [address]Dr. Nolvia StreetR QUANTon 33-74-0215Nnsft Plasma Reagin, QuantNon-ReactiveNormal NonRea<1:1The [facility] Northment on above:Result Comment: Please Note: This test does not meet current guidelines for screening and diagnosis of syphilis. This test is intended for following treatment response in patients being treated for syphilis infection. To screen for syphilis infection, a reflex cascade that includes both RPR and a treponema-specific assay should be utilized, such as Treponema pallidum (Syphilis) Screening Beaver (829960) or Rapid Plasma Reagin (RPR) Test With Reflex to Quantitative RPR and Confirmatory Treponema pallidum Antibodies (726877).Performed By: #### RPRQ ####[facility] [address] [place], [place] [address]Dr. Nolvia Ruvalcaba CHLAMYDIA/GONOCOCCUS THERON (SWAB/URINE/PAPon 76-06-0502Ygyrwgjta trachomatis, THERON NegativeNormalNegativeCherrington HospitalComment on above:Performed By: #### CT/NGNA ####[facility] Nq[address] [place], [place] [address]DrDinorah RuvalcabaNeisseria gonorrhoeae, NAANegativeNormalNegativeCherrington HospitalComment on above:Performed By: #### CT/NGNA ####[facility] W[address] [place], [place] [address]DrDinorah Ruvalcaba VAGINITIS/VAGINOSIS DNA PROBEon 86-02-8516Ljfdcpq speciesNegativeNormalNegative Cherrington HospitalComment on above:Performed By: #### HIV12 #### [facility] Laboratory [address] [place] [address] Dr. Nolvia Hoopererella vaginalisNegativeNormalNegativeCherrington Hospital Comment on above:Performed By: #### HIV12 #### [facility] Laboratory [address] [place] [address] Dr. Nolvia RuvalcabaTrichomonas vaginalisNegativeNormalNegativeCherrington Hospital Comment on above:Performed By: #### HIV12 #### [facility] Laboratory [address] [place] [address] Dr. Nolvia RuvalcabaHEP B SURFACE ANTIGEN SCREENon 49-41-8967OShZl ScreenNegative NormalNegativeCleveland Clinic Avon Hospitalment on above:Performed By: #### HBSANS ####[facility] T[address] [place], [place] [address]Dr. Nolvia RuvalcabaHEPATITIS C VIRUS AB W/ REFLEX QUANTon 45-89-6863TKE AB<0.1Normal 0.0-0.9The [facility] on above:Performed By: #### HCVPCRR ####[facility] [address]htzuasg[address] [place], [place] [address]Dr. Nolvia RuvalcabaInterpretation:CommentNormalThe [facility] on above: Result Comment: Negative Not infected with HCV, unless recent infection is suspected or other evidence exists to indicate HCV infection.Performed By: #### HCVPCRR ####[facility] [address] [place], [place] [address]Dr. Nolvia RuvalcabaHIV 1 AND 2 WITH REFLEXon 98-99-9772JGA Screen 4th Generation wRfx Non-ReactiveNormalNon ReactiveThe [facility] on above:Result Comment: HIV Negative HIV-1/HIV-2 antibodies and HIV-1 p24 antigen were NOT detected. There is no laboratory evidence of HIV infection.Performed By: #### HIV12 #### [facility] Laboratory [address] [place] [address] Dr. Nolvia RuvalcabaRPBarrett QUANTon 14-94-1262Hetxq Plasma Reagin, QuantNon-Reactive NormalNonRea<1:1[facility] on above:Performed By: #### RPRQ ####[facility] [address] [place], [place] [address]Dr. Nolvia RuvalcabaRUBELLA AB IGGon 03-84-3383Qvlnbvd Antibodies, IgG1.50 indexNormal Immune >0.99The [facility] on above:Result Comment: Non-immune <0.90 Equivocal 0.90 - 0.99 Immune >0.99Performed By: #### HIV12 #### [facility] Laboratory [address] [place] [address] Dr. Nolvia RuvalcabaCBC AUTO DIFFon 47-32-2527DDNF #0.0 103/ulNormal0.0-0.1C[facility]rington HospitalComment on above:Performed By: #### HIV12 #### [facility] Laboratory [address] [place] [address] Dr. Nolvia RuvalcabaBasophils/100 WBC (Bld)0.3 %Normal0.2-2.0[facility] Comment on above:Performed By: #### HIV12 #### [facility] Laboratory [address] [place] [address] Dr. Nolvia Geiger #0.1 103/ulNormal0.0-0.7The [facility] CenterComment on above: Performed By: #### HIV12 #### [facility] Laboratory [address] [place] [address] Dr. Nolvia Trivediosinophils/100 WBC (Bld)1.4 %Normal0.9-7.0[facility] Comment on above:Performed By: #### HIV12 #### [facility] Laboratory [address] [place] [address] Dr. Nolvia Trivedirythrocyte distribution width (RBC) [Ratio]12.4 %Nqybfs29.0-15.0 Cherrington HospitalComment on above:Performed By: #### HIV12 #### [facility] Laboratory [address] [place] [address] Dr. Nolvia RuvalcabaHematocrit (Bld) [Volume fraction]40.7 %Mfxvcx68.0-48.0[facility] HospitalComment on above:Performed By: #### HIV12 #### [facility] Laboratory [address] [place] [address] Dr. Nolvia RuvalcabaHemoglobin (Bld) [Mass/Vol]13.5 g/bHEwwgbh06.0-16.0[facility] HospitalComment on above:Performed By: #### HIV12 #### [facility] Laboratory [address] [place] [address] Dr. Nolvia Jiménez #0.04 10e3/ulCritically high0.00-0.03[facility] Comment on above:Performed By: #### HIV12 #### [facility] Laboratory [address] [place] [address] Dr. Nolvia Jiménez %0.4 %Normal0.0-0.5The [facility] CenterComment on above: Performed By: #### HIV12 #### [facility] Laboratory [address] [place] [address] Dr. Nolvia Brewer #1.3 103/ulNormal1.2-3.8The [facility] CenterComment on above:Performed By: #### HIV12 #### [facility] Laboratory [address] [place] [address] Dr. Nolvia Pintohocytes/100 WBC (Bld)13.8 %Critically low20.5-60.0The [facility] CenterComment on above:Performed By: #### HIV12 #### [facility] Laboratory [address] [place] [address] Dr. Nolvia CalderonUAL DIFF REQNONormalThe [facility] CenterComment on above: Performed By: #### HIV12 #### [facility] Laboratory [address] [place] [address] Dr. Nolvia Fraire (RBC) [Entitic mass]30.1 pnMalodx94.7-34.0The [facility] CenterComment on above:Performed By: #### HIV12 #### [facility] Laboratory [address] [place] [address] Dr. Nolvia Verdin (RBC) [Mass/Vol]33.2 g/sQRtsghh82.9-35.2The [facility] CenterComment on above:Performed By: #### HIV12 #### [facility] Laboratory [address] [place] [address] Dr. Nolvia Verdin (RBC) [Entitic vol]90.8 tAMpviha73.0-99.0The [facility] CenterComment on above:Performed By: #### HIV12 #### [facility] Laboratory [address] [place] [address] Dr. Nolvia De Jesus #0.4 103/ulNormal0.3-0.8The [facility] CenterComment on above:Performed By: #### HIV12 #### [facility] Laboratory [address] [address] [address] Nolvia Tothocytes/100 WBC (Bld)4.2 %Normal1.7-12.0The [facility] Comment on above:Performed By: #### HIV12 #### [facility] Laboratory [address] [place] [address] Dr. Nolvia AnneUT #7.5 103/ulCritically high1.4-6.5The [facility] Comment on above:Performed By: #### HIV12 #### [facility] Laboratory [address] [place] [address] Dr. Nolvia Anneutrophils/100 WBC (Bld)79.9 %Critically high43.0-75.0The [facility] CenterComment on above:Performed By: #### HIV12 #### [facility] Laboratory [address] [place] [address] Dr. Nolvia RuvalcabaPlatelet mean volume (Bld) [Entitic vol]9.3 fLCritically low 9.5-13.5The [facility] CenterComment on above:Performed By: #### HIV12 #### [facility] Laboratory [address] [place] [address] Dr. Nolvia RuvalcabaPLT322 103/zoLpkxsn042-564Liy [facility] CenterComment on above: Performed By: #### HIV12 #### [facility] Laboratory [address] [place] [address] Dr. Nolvia RuvalcabaRBC4.48 106/ulNormal4.20-5.40The [facility] CenterComment on above:Performed By: #### HIV12 #### [facility] Laboratory [address] [place] [address] Dr. Nolvia RuvalcabaWBC9.4 103/ulNormal4.0-11.0The [facility] CenterComment on above: Performed By: #### HIV12 #### [facility] Laboratory [address] [place] [address] Dr. Nolvia FontenotLTUSHA URINEon 84-77-6886PLASISM URINECulture Observations: LIGHT GROWTH OF MIXED GENITAL SPENCER. NO POTENTIAL PATHOGENS SEEN.NormalThe [facility] Medical CenterComment on above:Performed By: #### URCX ####[facility] [address] [place], [place] [address]KiDr. Nolvia Ruvalcaba GLYCOHEMOGLOBIN A1Con 11-79-0608SKO RECOMMENDATIONADA THERAPEUTIC TARGET 6.0 - 7.0 ACTION SUGGESTED > 7.0M[facility] County HospitalComment on above:Performed By: #### A1C #### [facility] Laboratory [address] [address] [address] Nolvia RuvalcabaGlucose [Mass/Vol]108 mg/dLNoKettering Health – Soin Medical CenterComment on above:Performed By: #### A1C #### [facility] [address] [address] [address] Nolvia RuvalcabaHbA1c (Bld) [Mass fraction]5.4 %Normal<=6.0The [facility] Comment on above:Performed By: #### A1C #### [facility] Laboratory [address] [address] [address] Nolvia RuvalcabaTYPE AND SCREENon 97-17-0964LZQW AND SCREENNegativeNoKettering Health – Soin Medical CenterComment on above:Performed By: #### TNS ####[facility] [address] [address]DrAngel RuvalcabaUS PREG TVon 89-91-0450DD PREG TVEXAMINATION: US PREG TV HISTORY: Missed [...] Electronically authenticated by: FRANCIA CRENSHAW Date: 2021-03-27 09:39[facility] Vital Signs Date TimeVital SignValuePerforming NozeprvxhNdqvvyns12-70-4347 14:04-0500Body mass index (BMI) [Ratio]29.95 kg/m2Cindy Thomas PA Work Phone: [phone] [place], [place] [address]Nmioetokiv60-27-3889 14:04-0500Body rtlsca42.36 kgAmy Ricardo PA Work Phone: [phone] [place], [place] [address]Rfkfmayowx40-74-0606 14:04-0500Diastolic blood pvcxsawp70 mm[Hg]Cindy Thomas PA Work Phone: [phone] [place], [place] [address]Broneievkp35-14-1342 14:04-0500Systolic blood dohmcolq788 mm[Hg]Cindy Thomas PA Work Phone: [phone] [place], [place] [address]Yqqcclzzcd56-25-0164 14:18-0400Body mass index (BMI) [Ratio]29.56 kg/e0Zvotg Mary Lou DO Work Phone: [phone] [place], [place] [address]Obvyzhetje45-28-8986 14:18-0400Body nodayq88.18 kgCorey Mary Lou DO Work Phone: [phone] [place], [place] [address]Lrydxkvqkd62-02-7074 14:18-0400Diastolic blood yplioges82 mm[Hg]Jose Mary Lou DO Work Phone: [phone] [place], [place] [address]Rarwreiqkl90-84-8125 14:18-0400Systolic blood wkslyfac605 mm[Hg]Jose Mary Lou DO Work Phone: [phone] [place], [place] [address]Hfudxhmpsn55-27-9402 14:32-0400Body mass index (BMI) [Ratio]29.08 kg/g4EloisbbaLydia Kelly CARDIAC CATH LAB MANAGER Work Phone: [phone] [place], [place] [address]Lztdlsxatw93-36-9458 14:32-0400Body qafmtk84.75 kgLydia Flanaganly CARDIAC CATH LAB MANAGER Work Phone: [phone] [place], [place] [address]10-07-2025 14:32-0400Diastolic blood wscejths80 mm[Hg]Lydia Flanaganly CARDIAC CATH LAB MANAGER Work Phone: [phone] [place], [place] [address]Tetrofqwwp54-74-2555 14:32-0400Systolic blood gtilfiqt007 mm[Hg]Lydia Kelly CARDIAC CATH LAB MANAGER Work Phone: [phone] [place], [place] 7007609-22-2025 10:11-0400Body mass index (BMI) [Ratio]28.89 kg/f5Nwsvu Mary Lou DO Work Phone: [facility] SpringsJbanolymov10-88-4848 10:11-0400Body reyqlc03.18 kgCorey Mary Lou DO Work Phone: [facility] SpringsUukimqlwdn04-83-5633 10:11-0400Diastolic blood pjpooctg34 mm[Hg]Jose Mary Lou DO Work Phone: [phone] [place], [place] [address]Ihkxcnklyb54-62-7616 10:11-0400Systolic blood cpbhcojw362 mm[Hg]Jose Mary Lou DO Work Phone: [phone] [place], [place] [address]Qhvkqykyqo72-07-6874 15:02-0400Body mass index (BMI) [Ratio]28.74 kg/m2Cindy Willisadelia ZHU Work Phone: [facility] SpringsBokfngckmj89-98-0548 15:02-0400Body fxjeej04.73 kgCindy Willisadelia ZHU Work Phone: [phone] [place], [place] [address]Ysnxgwnusg64-76-6966 15:02-0400Diastolic blood uumlujdh94 mm[Hg]Cindy Willisey PA Work Phone: [phone] [place], [place] [address]Dhozerdnxd53-85-2368 15:02-0400Systolic blood aukdsusg736 mm[Hg]Cindy Willisey PA Work Phone: [facility] SpringsCzigffhfdt77-25-7092 15:04-0400Body mass index (BMI) [Ratio]28.28 kg/k8Onlaf Mary Lou DO Work Phone: [phone] [place], [place] [address]Ybsnohkkai65-25-1606 15:04-0400Body .37 kgCorey Mary Lou DO Work Phone: [phone] [place], [place] [address]Kkoqncnfrg03-14-0474 15:04-0400Diastolic blood mm[Hg]Jose Mary Lou DO Work Phone: [phone] [place], [place] [address]Vsrhoydmmb83-15-1350 15:04-0400Systolic blood luftcqzq805 mm[Hg]Jose Mary Lou DO Work Phone: [phone] [place], [place] [address]Jtadikcium59-32-7782 15:37-0400Body mass index (BMI) [Ratio]27.06 kg/m2Amy Ricardo PA Work Phone: [facility] SpringsCgadfklhyl41-84-9621 15:37-0400Body qorafx15.74 kgiCndy Thomas PA Work Phone: [facility] SpringsGsyzkopdpc89-84-4268 15:37-0400Diastolic blood lfhrmxov14 mm[Hg]Cindy Thomas PA Work Phone: [facility] SpringsPnhjzzdraz30-93-9430 15:37-0400Systolic blood stqsgohg263 mm[Hg]Cindy Thomas PA Work Phone: [facility] SpringsMarxrcdmdm27-30-6597 09:48-0400Body mass index (BMI) [Ratio]26.72 kg/f1Zyowd Mary Lou DO Work Phone: [facility] [facility] SpringsBsyspzwsyx09-31-4810 09:48-0400Body .72 kgCorey Mary Lou DO Work Phone: [facility] SpringsGcjzkxdrhj19-05-3838 09:48-0400Diastolic blood mm[Hg]Jose Mary Lou DO Work Phone: [facility] SpringsRsjcxnsjaz08-88-8630 09:48-0400Systolic blood gzqmcpwi243 mm[Hg]Jose Mary Lou DO Work Phone: [facility] SpringsHuthrqdhod89-44-8397 11:15-0500Body zrpess243.72 cmMatthew Rosy Other [employer] Other 01-11-2024 11:15-0500Body mass index (BMI) [Ratio] 26.76 kg/g7Wokgklo Rosy Other [employer] Other 01-11-2024 11:15-0500Body wbuhks61.83 kgMatthew Rosy Other [employer] Other 01-11-2024 11:15-0500Diastolic blood xbizszjm21 mm[Hg] Jenn Rosy Other [employer] Other 01-11-2024 11:15-0500Respiratory rate16 /minMikaelsyedsunny Rosy Other [employer] Other 01-11-2024 11:15-4819SbH8% (BldA) [Mass fraction]99 % Jenn Rosy Other [employer] Other 01-11-2024 11:15-0500Systolic blood jspitxmd606 mm[Hg] Jenn Gallegos Other [employer] Other 03-23-2023 14:45-0400Body dwislr287.72 cmJenn Gallegos Other [employer] Other 03-23-2023 14:45-0400Body mass index (BMI) [Ratio] 27.85 kg/b9DtearnyJenn Gallegos Other [employer] Other 03-23-2023 14:45-0400Body afghrd85.1 kgJenn Gallegos Other [employer] Other 03-23-2023 14:45-0400Diastolic blood uoxjrrom53 mm[Hg] Jenn Rosy Other [employer] Other 03-23-2023 14:45-0400Respiratory rate16 /minRigobertosean Gallegos Other [employer] Other 03-23-2023 14:45-7141FwK0% (BldA) [Mass fraction]99 % Jenn Gallegos Other [facility] [employer] Other 03-23-2023 14:45-0400Systolic blood djnmkouu726 mm[Hg] Jenn Rosy Other [employer] Other 12-29-2022 16:30-0500Body abwxfq808.72 cmRicheun Natalie Other [employer] Other 12-29-2022 16:30-0500Body mass index (BMI) [Ratio] 28.64 kg/h3HhdnazcMike Estrada Other [employer] Other 12-29-2022 16:30-0500Body xvonlr07.46 kgRobereun Natalie Other [employer] Other 12-29-2022 16:30-0500Diastolic blood inhyamsl94 mm[Hg] Mike Nileansley Other [employer] Other 12-29-2022 16:30-0500Respiratory rate16 /minRicheun Estrada Other [employer] Other 12-29-2022 16:30-3193CbL8% (BldA) [Mass fraction]97 % Mike Nileansley Other [employer] Other 12-29-2022 16:30-0500Systolic blood okxtnfbl911 mm[Hg] Mike Dowdks Other [employer] Other 12-29-2021 16:15-0500Body vpavtv456.72 cmMasean Gallegos Other [employer] Other 12-29-2021 16:15-0500Body mass index (BMI) [Ratio] 27.37 kg/c3XtvifrcJenn Gallegos Other [employer] Other 12-29-2021 16:15-0500Body .65 kgJenn Gallegos Other [employer] Other 12-29-2021 16:15-0500Diastolic blood jjoelgph92 mm[Hg] Jenn Gallegos Other [employer] Other 12-29-2021 16:15-0500Respiratory rate16 /minMasean Gallegos Other [employer] Other 12-29-2021 16:15-9323LhY8% (BldA) [Mass fraction]99 % Jenn Gallegos Other [employer] Other 12-29-2021 16:15-0500Systolic blood reugqohb244 mm[Hg] Jenn Gallegos Other [employer] Other Encounters Encounter DateEncounter TypeCare ProviderFacilityStart: 12-20-2024 End: 65-13-5775Wadsvvguc Result EncounterCorey Mary Lou DO Work Phone: [facility] External Department UnsolicitedStart: 12-20-2024 End: 38-82-9930Kqjotxwzp Result EncounterCorey Mary Lou DO Work Phone: [facility] External Department UnsolicitedStart: 12-17-2024 End: 58-52-3499Hmizqq flowsheetCindy ZHU Work Phone: [facility] [place] [facility]BGYNStart: 12-17-2024 End: 44-80-2547Sctqny Montez ZHU Work Phone: [facility]YNStart: 12-17-2024 End: 51-95-3934Jopsldqy flow sheetCindy ZHU Work Phone: [facility] OBGYNComment on above:Third trimester ([facility]); 34 weeks gestation of ([facility])Start: 12-17-2024 End: 23-27-1014reddovamtcWXX RICARDONot AvailableStart: 12-04-2024 End: 26-43-8802Maldnrni flow sheetCorey Mary Lou DO Work Phone: [facility] [place] [facility]BGYNComment on above:32 weeks gestation of ([facility]); Third trimester ([facility]); Anemia, unspecified typeStart: 12-04-2024 End: 43-83-2942cbzmjwwlafWTQBU FAZIONot AvailableStart: 11-20-2024 End: 61-13-1393Aijeprzd flow sheetLydia Kelly NP Work Phone: [facility] OBGYNComment on above: size inconsistent with dates ([facility]) (Primary Dx); Third trimester ([facility]); 30 weeks gestation of ([facility])Start: 11-20-2024 End: 45-91-7693ewqypppoehXOJRSEOZ EBERLYNot AvailableStart: 11-20-2024 End: 02-87-2058Xuzhvc flowsheetLydia Kelly CARDIAC CATH LAB MANAGER Work Phone: [facility] [place] [facility]BGYNStart: 11-20-2024 End: 12-71-3613Waxmfs flowsheetLydia Kelly CARDIAC CATH LAB MANAGER Work Phone: [facility]BGYNStart: 11-05-2024 End: 93-23-2198Moiyrm flowsheetCorey Mary Lou DO Work Phone: [facility] [place] [facility]BGYNStart: 11-05-2024 End: 70-53-2574Erzbid flowsheetCorey Mary Lou DO Work Phone: [facility]BGYNStart: 11-05-2024 End: 21-01-1072Qikrasnhn Result EncounterLydia Kelly CARDIAC CATH LAB MANAGER Work Phone: [facility] External Department UnsolicitedStart: 11-05-2024 End: 29-99-3111Iuucabru flow sheetCorey Mary Lou DO Work Phone: [facility]BGYNComment on above:Anemia, unspecified type (Primary Dx); Third trimester ([facility]); 28 weeks gestation of ([facility])Start: 11-05-2024 End: 87-80-7824agvuhzgwvjVQUXD FAZIONot AvailableStart: 10-24-2024 End: 53-68-0973Bhobyspl flow Eric ZHU Work Phone: [facility] OBGYNComment on above:26 weeks gestation of ([facility]); Second trimester ([facility]); Anemia during in second trimester ([facility])Start: 10-24-2024 End: 82-91-3329lqbttmapwePCE RAMEYNot AvailableStart: 10-24-2024 End: 52-22-7553Cjmpwv Montez ZHU Work Phone: [facility]BGYNStart: 10-24-2024 End: 92-79-0712Jkomxb Montez ZHU Work Phone: [facility] [place] [facility]BGYNStart: 10-08-2024 End: 95-14-5135Cqyyznloh Result EncounterCorey Mary Lou DO Work Phone: [facility] External Department UnsolicitedStart: 10-08-2024 End: 08-65-6454Mlrkcrghc Result EncounterCorey Mary Lou DO Work Phone: [facility] External Department UnsolicitedStart: 09-26-2024 End: 86-83-2402Nvngddit flow sheetCorey Mary Lou DO Work Phone: [facility] [place] [facility]BGYNComment on above:Diabetes mellitus screening; Second trimester ([facility]); 22 weeks gestation of ([facility])Start: 09-26-2024 End: 63-46-4030iwbxvojsieQTMML FAZIONot AvailableStart: 09-26-2024 End: 66-05-3653Hgdqed flowsheetCorey Mary Lou DO Work Phone: [facility]YNStart: 09-26-2024 End: 54-20-3186Tayblb flowsheetCorey Mary Lou DO Work Phone: [facility] [place] [facility]BGYNStart: 09-13-2024 End: 39-86-4270rjhzcqnqmuJZP RICARDONot AvailableStart: 08-29-2024 End: 73-95-3838Gnxnkzr encounter procedureCindy ZHU Work Phone: [facility] HealthcareStart: 08-29-2024 End: 01-56-7679Uivenifw preventive med est patient 18-39 yrsCindy ZHU Work Phone: [facility] BCP OBComment on above:Well woman exam with routine gynecological exam; Screening, , for anatomic survey ([facility]); Exposure to STD; Need for maternal serum alpha-protein (MSAFP) screening ([facility]); Second trimester ([facility]); 18 weeks gestation of ([facility])Start: 08-29-2024 End: 72-82-8903gwbphwiyxbLBE RICARDONot AvailableStart: 08-29-2024 End: 88-59-4209Mtcvnm flowsTiara ZHU Work Phone: [facility] BCP OBStart: 08-29-2024 End: 78-57-5987Iwswad Montez ZHU Work Phone: [facility] BCP OBStart: 08-29-2024 End: 14-31-8071Jncjmuznn Result EncounterCindy ZHU Work Phone: noMS External Department UnsolicitedStart: 08-29-2024 End: 61-56-5417Vqofswup Result EncounterAmy Ricardo PA Work Phone: [facility] External Department UnsolicitedStart: 08-02-2024 End: 70-60-6206Sqyndg flowsheetCorey Mary Lou DO Work Phone: [facility] BCP OBStart: 08-02-2024 End: 40-26-9843Kmeisj flowsheetCorey Mary Lou DO Work Phone: [facility] BCP OBStart: 08-02-2024 End: 29-88-6651Yeqchqvn flow sheetCorey Mary Lou DO Work Phone: [facility] BCP OBComment on above:Second trimester ([facility]); 14 weeks gestation of ([facility])Start: 08-02-2024 End: 23-82-5906glllyznuxyTWVCE FAZIONot AvailableStart: 07-24-2024 End: 71-49-4120Atlpsskrf Result EncounterCorey Mary Lou DO Work Phone: [facility] External Department UnsolicitedStart: 07-24-2024 End: 86-36-7325Ppznxwjqx Result EncounterCorey Mary Lou DO Work Phone: [facility] External Department UnsolicitedStart: 07-05-2024 End: 94-79-1788zlxxfezaifLJYCE FAZIONot AvailableStart: 02-24-2023 End: 98-60-1298rerwfmyqmzNwjsqfy Widmer Other [employer] Other Start: 87-10-2935Gnifkhadg for general adult medical examination without abnormal findingsJenn GallegosYAVAPAI [facility] Julio Start: 94-32-2559Eslkrulf preventive med est patient 18-39 yrsMattjasmin GallegosYAVAPAI [facility] Family Medicine [place]Start: 05-06-2022 End: 87-47-0773hbrdpetoewHittkvu Widmer Other [employer] Other Start: 90-68-2986Urfpey outpatient visit 15 minutes Jenn WilsonherminioBeth Israel Hospital SandtrevoryStart: 03-10-2022 End: 58-27-0027eupmtetqaqSNUTXCQ WIDHERMINIOFacility:Y5Fqhlm: 02-11-2022 End: 83-22-5106hlyczvlenqAhqjtql Binks Other [facility] [employer] Other Start: 88-03-9588Qetokhufk for general adult medical examination without abnormal findingsGundersen St [facility] Julio Start: 58-89-6063Dorfymuw preventive med est patient 18-[address] [facility] CamiyStart: 12-10-2021 End: 20-31-4434wbejvhaoyjQMHLEMX ROSYFacility:L6Accfc: 11-03-2021 End: 73-98-8594Ahqxaanvcd and management of inpatientMATTJASMIN GALLEGOSFacility:H1 Start: 18-72-9031Ltnvuzpvo for preprocedural laboratory examinationDR JOSE FAGAYLAHighland District Hospitaltart: 10-31-2021 End: 28-75-6471iuizzpiijjKTSVTQC CASEYMERFacility:F1Fxuul: 10-31-2021 End: 94-78-2819Hedbohpit for preprocedural laboratory examinationMATTSYEDW ROSY Facility:Y1Mupzq: 10-14-2021 End: 37-40-2086pgdkrgwkbpEPOWEYX CASEYMERFacility:Q1Fhywd: 08-28-2021 End: 37-37-6054lrlqlhjzgtDKXNEZQ WIDMERFacility:R1Osboj: 08-18-2021 End: 29-54-0607ivqzrocpmpIN JOSE FAZIOFacility:T8Qenet: 07-30-2021 End: 24-71-1237vcnuilgnzsEM JOSE FAZIOFacility:A9Pxldi: 56-10-1024kwxdoxsdcuCR JOSE FAZIOFacility:T0Ylqdm: 07-14-2021 End: 19-31-7711ojmupejngpFMMEXNQQ EBERLYFacility:C6Xatyg: 06-18-2021 End: 15-61-7794nkayrbfkyxZSXPIAL WIDMERFacility:Q6Txvkk: 05-29-2021 End: 01-00-2124hwonexfnhkERCDVAN WIDMERFacility:V9Psrez: 05-25-2021 End: 82-12-9059utrtbdwdlrSF JOSE FAZIOFacility:N9Wauko: 04-27-2021 End: 70-83-9480tlbrzdrvjwLKNJBPR WIDMERFacility:B1Ffnjs: 03-27-2021 End: 78-82-5905sefkqnrghrUI JOSE FAZIOFacility:G9Xxdqa: 02-11-2021 End: 21-11-2743ylwfpiwnllJgtijkm Rosy Other [facility] [employer] Other Start: 61-75-1221Yclodvahn for general adult medical examination without abnormal findingsEs[facility] Start: 03-55-7666Mrdymcwv preventive med est patient 18-39 yrsMattMercy Medical Center Merced Community CampusyStart: 86-36-9786Rbozxctnh encounterMattMountain Point Medical Centerart: 01-03-2018 End: 73-00-6943Hxiattx encounter procedureGosia GarciasFacility:[facility] Procedures DateProcedureProcedure DetailPerforming ClinicianStart: 03-16-6682LQP UA (CLEAN/CATCH) SWEATER DESIGNER/MICRO IF IND.Jose Mary Lou DO Work Phone: Start: 62-64-9945Zsaul dip stick/tablet rgnt non-auto w/o micrscpAmy Ricardo PA Work Phone: Start: 40-09-2707Wckyo dip stick/tablet rgnt non-auto w/o micrscpCorey Mary Lou DO Work Phone: Start: 64-49-7372Llugq dip stick/tablet rgnt non-auto w/o micrscpKrbulmaro Kelly CARDIAC CATH LAB MANAGER Work Phone: Start: 57-40-1631CDG CBC WITH AUTO DIFFKristina Robin CARDIAC CATH LAB MANAGER Work Phone: Start: 52-55-9356Mlcnz dip stick/tablet rgnt non-auto w/o micrscpCorey Mary Lou DO Work Phone: Start: 90-79-9534Facgc dip stick/tablet rgnt non-auto w/o micrscpAmy Ricardo ZHU Work Phone: Start: 74-63-5671MHN CBC WITH AUTO DIFFCorey Mary Lou DO Work Phone: Start: 48-89-1611Oyxmq dip stick/tablet rgnt non-auto w/o micrscpCorey Mary Lou DO Work Phone: Start: 28-00-2808SBKLBJOVR VAGINITIS (HTRX)Cindy ZHU Work Phone: Start: 29-46-8259Qsviy dip stick/tablet rgnt non-auto w/o micrscpAmy Ricardo ZHU Work Phone: Start: 63-73-1187QJL,APTIMA HPV,AGE GDLNAmy Ricardo ZHU Work Phone: Start: 46-15-8500Rtcvddtezoh observation [Identifier] in Cervix by Cyto stainCorey Mary Lou DO Work Phone: Start: 59-21-3054Jatip dip stick/tablet rgnt non-auto w/o micrscpCorey Mary Lou DO Work Phone: Start: 21-76-5289VTE CBC WITH AUTO DIFFCorey Mary Lou DO Work Phone: Start: 89-37-4408PFN TESTCorey Mary Lou DO Work Phone: Start: 39-33-2750Andvrnlydhp observation [Identifier] in Cervix by Cyto stainCorey Mary Lou DO Work Phone: Start: 52-68-3601Qpgccqxqfl of Products of Conception, Low Cervical, Open ApproachMATTHEW ROSY Plan of Treatment DateCare ActivityDetailAuthorStart: 28-65-0036Mjicydwmf for malignant neoplasm of cervixNOMS HealthcareStart: 56-15-2625Tduimhhjt for malignant neoplasm of cervixNOMS HealthcareStart: 12-26-2024 End: 60-21-0307Rawnrzt encounter efugxhllw19/12/2025 3:00 PM EST Routine [facility] [address] [place], [id number] Jose Barreto DO [address] [place] [address] [facility] [place] [facility]YNStart: 12-17-2024 End: 55-94-1512Ivjpohh encounter procedureNOMS Ancelmo OBGYNComment on above: ArrivedStart: 11-20-2024 End: 67-50-3454Ubqbtvq encounter procedureNOMS Ancelmo OBGYNComment on above: ArrivedStart: 11-20-2024 End: 73-32-7791JZ for pregnancyUS OB follow up transabdominal approach Imaging Routine size inconsistent with dates ([facility]) Expected: 11/20/2024, Expires: 03/23/2025[facility] Work Phone: comment on above:Expected: 11/20/2024, Expires: 03/23/2025Start: 11-05-2024 End: 56-71-1906Upoqsht encounter procedureNOMS Ancelmo OBGYNComment on above: ArrivedStart: 10-24-2024 End: 06-64-4864Eyyakra encounter procedureNOMS Ancelmo OBGYNComment on above: ArrivedStart: 11-77-0225EOPKL-19 Vaccine ( season)COVID-19 Vaccine ()N[facility]S HealthcareStart: 99-72-1137Qrnsxgfck vaccinationNOMS HealthcareStart: 09-26-2024 End: 86-22-8964Rpznoce encounter procedureNOMS BCP OBComment on above:Arrived Start: 09-26-2024 End: 09-89-7760XMB panel - Blood by Automated countCBC Lab Routine Diabetes mellitus screening Expected: 09/26/2024 (Approximate), Expires: 09/26/2025[facility] Work Phone: comment on above:Expected: 09/26/2024 (Approximate), Expires: 09/26/2025Start: 09-26-2024 End: 21-62-9215Bnwyoeduruc of glucose 1 hour after glucose challenge for glucose tolerance testGlucose tolerance, 1 hour Lab Routine Diabetes mellitus screening Expected: 09/26/2024 (Approximate), Expires: 09/26/2025[facility] HealthcareComment on above:Expected: 09/26/2024 (Approximate), Expires: 09/26/2025Start: 09-13-2024 End: 66-68-7345Qbhjvsemjzpk / ancillary services /31/2025 2:30 PM EDT Ancillary Procedure [facility] [address] [place] [address] [facility] OBStart: 08-29-2024 End: 71-53-5968Huoannf encounter nedljswms57/16/2025 3:30 PM EDT Routine [facility] [address] [place] [address] Cindy Thomas PA [address] [place] [address] [place], [place] [id number] ArrivedLOMA LINDA [facility] OBComment on above: ArrivedStart: 08-29-2024 End: 38-70-8140Kapgi fetoprotein, maternalAlpha fetoprotein, maternal Lab Routine Need for maternal serum alpha-protein (MSAFP) screening ([facility]) Expected: 08/29/2024 (Approximate), Expires: 09/29/2024[facility] HealthcareComment on above:Expected: 08/29/2024 (Approximate), Expires: 09/29/2024Start: 08-29-2024 End: 11-71-2223VY for pregnancyUS OB 14+ weeks anatomy scan Imaging Routine Screening, , for anatomic survey ([facility]) Expected: 08/29/2024, Expires: 11/29/2024[facility] HealthcareComment on above:Expected: 08/29/2024, Expires: 11/29/2024Start: 08-02-2024 End: 40-26-4102Yozgryk encounter procedureNOMS BCP OBComment on above:Arrived Start: 71-84-8580Sjkfndpyc for malignant neoplasm of cervixHPV/CotestNOMS HealthcareCBC W Auto Differential panel - BloodCBC and differential Lab Routine Anemia, unspecified type Ordered: 11/05/2024[facility] Work Phone: comment on above:Ordered: 11/05/2024HLAMYDIA TRACHOMATIS (GENITO/STI)CHLAMYDIA TRACHOMATIS (GENITO/STI) Lab Routine Exposure to STD Ordered: 08/29/2024[facility] HealthcareComment on above:Ordered: 08/29/2024 Cytology Cervical or vaginal smear or scraping studyPap Smear Pathology and Cytology Routine Well woman exam with routine gynecological exam Ordered: [facility] Work Phone: comment on above:Ordered: 08/29/2024Human papilloma virus DNA [Presence] in Unspecified specimen by Probe with amplificationHPV DNA probe, amplified Microbiology Routine Well woman exam with routine gynecological exam Ordered: 08/29/2024[facility] HealthcareComment on above:Ordered: 08/29/2024 Neisseria gonorrhoeae DNA [Presence] in Unspecified specimen by THERON with probe detectionNeisseria gonorrhea DNA probe, direct Lab Routine Exposure to STD Ordered: 08/29/2024[facility] HealthcareComment on above:Ordered: 08/29/2024 SURESWAB(R) ADVANCED VAGINITIS PLUS, TMASURESWAB(R) ADVANCED VAGINITIS PLUS, TMA Pathology and Cytology Routine Exposure to STD Ordered: 08/29/2024[facility] HealthcareComment on above:Ordered: 08/29/2024 Immunizations Immunization DateImmunizationNotesCare PkgeyxvaKtnqwpbw77-91-4833GNJYJ-85 Vaccine Pfizer - Documentation Purposes OnlyMasean Gallegos Other [employer] Other 02-851287-02-6546XIYTY-60 Vaccine Pfizer - Documentation Purposes OnlyMasean Gallegos Other [employer] Other 10-14-527241-03-0903zgdyomwda, injectable, quadrivalent, preservative freeMattsyedw Rosy Other [facility] [employer] Other 10-14-528051-54-9269vuuoahjra virus vaccine, unspecified formulationJose Barreto DO Work Phone: [facility] Payers DatePayer CategoryPayerPolicy [id number] [facility] ..[id number] 2023Medicaid (Managed Care)[place] [id number] 35-48-2715Hztuxqo Health Jjmkldrmg93738749603-09-6687Ikaq-uxf63-76-0313Fbwsrji [id number] .1.763223.3.57[id number] 2.16.840.1.105665.3.579.[id number] 2.16.840.1.929095.3.579.2.45426-42-9264Uftfhuj5283565 2.16.840.1.673142.3.579.2.74156-19-4960Jpsgugc1604146 2.16.840.1.482186.3.579.2.75330-55-9479Yduspne0611842 2.16.840.1.003040.3.579.2.30385-00-5846Giwudno7779558 2.840.1.858074.3.579.2.83105-17-9901Dvglkal9509234 2.840.1.415031.3.579.2.81604-26-8044Abvzyzj4014589 2.840.1.284455.3.579.2.05664-25-8075Dtpcgtv5785218 2.840.1.659470.3.579.2.30694-54-8552Pjktlgw8243731 2.840.1.641904.3.579.2.09196-65-4493Cqlkphy0995905 2.840.1.389047.3.579.2.30006-54-5563Zeheeyc4913820 2.840.1.212185.3.579.2.93779-61-3365Ipaqyby2747026 2.840.1.462528.3.579.2.48622-61-0036Iyolkre7647323 2.16840.1.318275.3.579.2.66599-61-3913Mskclxn34525141 2.16840.1.319941.3.579.2.612371-24-2222Zuliwci03643144 2.0.1.343159.3.579.2.420206-80-1449Awllyjk80602619 2.0.1.284431.3.579.2.944853-50-6941Nnwjyqk21535490 2.160.1.733599.3.579.2.235594-63-1182Vmjovlc68493472 2.0.1.683829.3.579.2.027916-73-2651Sglyaaj82629583 2.0.1.990820.3.579.2.305956-22-8260Ydqqklo74580602 2.0.1.761835.3.579.2.477886-56-5519Gsqfrex58943179 2..1.677468.3.579.2.493075-10-4483Alovwbl02704487 2..1.637294.3.579.2.317018-80-1026Dbmyqda60472574 2..1.024004.3.579.2.437654-88-0313Mawcyub7551328 2..1.779166.3.579.2.379225-58-0826Dsalufm0909196 2..1.363199.3.579.2.986645-80-5331KcykUnm Cancer CenterTUG306W04797 2..1.967461.818919 [id number] [id number] Ijjussx63371 2..1.504053.3.579.2.531 Social History DateTypeDetailFacilityUnknown if ever smokedH[employer] Other Sex Assigned At Birth[employer] Other Tobacco smoking status NHISTobacco smoking consumption unknownUTAH STATE [facility]PITAL HealthcareStart: 18-71-8561BppxruvxoNAPQ HealthcareStart: 43-99-3948Lfr assigned at birthNot on fileSaint Mary's Hospital of Blue SpringsStart: 77-56-3194Atb FemaleSaint [facility]'s [facility] Clinical Notes 02-11-2021 to 12-17-2024 Note Date & ZmqhUzyqVjomwljf39-63-7491 History of Present illness Narrative* MARKO Phelps [...] was 05/08/2024. Assessment/Plan ICD-10-CM 1. Third trimester ([facility]) Z34.93 2. 34 weeks gestation of ([facility]) Z3A.34 Return OB: Patient presents today [...] behalf of: MARKO Phelps documented in this encounterSaint Mary's Hospital of Blue SpringsYbrmazrxzu70-09-7883 History of Present illness Narrative* Maribell Khan [...] nursing note reviewed. Exam conducted with a forge helper present. Vitals: Estimated body mass index is 29.56 kg/m as calculated from the following: Height as of 07/14/23: 5' 8 . Weight as of this encounter: 194 lb 6.4 oz. BP: 120/60 Patient's last menstrual period was 05/08/2024. Assessment/Plan ICD-10-CM 1. 32 weeks gestation of ([facility]) Z3A.32 POCT urinalysis dipstick manually resulted 2. Third trimester ([facility]) Z34.93 POCT urinalysis dipstick manually resulted [...] of: Jose Barreto DO documented in this encounterSaint Mary's Hospital of Blue SpringsGbzegybbqn08-83-3213 History of Present illness Narrative* Lydia Kelly [...] Past Medical History: Diagnosis Date Allergies Asthma ([facility]) Genital warts 2011 Pelvic pain 2007 HISTORY [...] nursing note reviewed. Exam conducted with a forge helper present. Vitals: Estimated body mass index is 29.08 kg/m as calculated from the following: Height as of 07/14/23: 5' 8 . Weight as of this encounter: 191 lb 4 oz. BP: 122/60 Patient's last menstrual period was 05/08/2024. ASSESSMENT & PLAN ICD-10-CM 1. size inconsistent with dates ([facility]) O26.849 2. Third trimester ([facility]) Z34.93 POCT urinalysis dipstick manually resulted 3. 30 weeks gestation of ([facility]) Z3A.30 Return OB: Patient presents today [...] of: Lydia Kelly NP documented in this encounterSaint [facility] [id number] History of Present illness Narrative* Lydia Kelly [...] D64.9 CBC and differential 2. Third trimester ([facility]) Z34.93 POCT urinalysis dipstick manually resulted 3. 28 weeks gestation of ([facility]) Z3A.28 Return OB: Patient presents today [...] of: Jose Barreto DO documented in this encounterSaint [facility] [id number] History of Present illness Narrative* MARKO Phelps [...] PLAN ICD-10-CM 1. 26 weeks gestation of ([facility]) Z3A.26 POCT urinalysis dipstick manually resulted 2. Second trimester ([facility]) Z34.92 POCT urinalysis dipstick manually resulted 3. Anemia during in second trimester ([facility]) O99.012 Return OB: Patient presents today [...] behalf of: MARKO Phelps documented in this encounterSaint Mary's Hospital of Blue [id number] History of Present illness Narrative* Maribell Khan [...] nursing note reviewed. Exam conducted with a forge helper present. Vitals: Estimated body mass index is 28.28 kg/m as calculated from the following: Height as of 07/14/23: 5' 8 . Weight as of this encounter: 186 lb. BP: 118/70 Patient's last menstrual period was 05/08/2024. ASSESSMENT & PLAN ICD-10-CM 1. Diabetes mellitus screening Z13.1 CBC Glucose tolerance, 1 hour CBC Glucose tolerance, 1 hour 2. Second trimester ([facility]) Z34.92 POCT urinalysis dipstick manually resulted 3. 22 weeks gestation of ([facility]) Z3A.22 Patient presents today for a routine obstetrics appointment. Patient is currently 22w5d with a Estimated Date of Delivery: 01/25/25. Pt given glucola and cbc orders to have obtained. Pt to return in 4 weeks Documented by Maribell Khan LPN on behalf of: Jose Barreto DO documented in this encounterSaint Mary's Hospital of Blue SpringsBkgbgztbwx31-09-5711 History of Present illness Narrative* MARKO Phelps [...] nursing note reviewed. Exam conducted with a forge helper present. Vitals: Estimated body mass index is 27.06 kg/m as calculated from the following: Height as of 07/14/23: 5' 8 . Weight as of this encounter: 178 lb. BP: 122/70 Patient's last menstrual period was 05/08/2024. ASSESSMENT & PLAN ICD-10-CM 1. Well woman exam with routine gynecological exam Z01.419 Pap Smear HPV DNA probe, amplified 2. Screening, , for anatomic survey ([facility]) Z36.89 US OB 14+ weeks anatomy scan 3. Exposure to STD Z20.2 SURESWAB(R) ADVANCED VAGINITIS PLUS, TMA CHLAMYDIA TRACHOMATIS (GENITO/STI) Neisseria gonorrhea DNA probe, direct 4. Need for maternal serum alpha-protein (MSAFP) screening ([facility]) Z36.1 Alpha fetoprotein, maternal Alpha fetoprotein, maternal 5. Second trimester ([facility]) Z34.92 6. 18 weeks gestation of ([facility]) Z3A.18 POCT urinalysis dipstick manually resulted [...] behalf of: MARKO Phelps documented in this encounterSaint Mary's Hospital of Blue [id number] History of Present illness Narrative* MARKO Phelps [...] ASSESSMENT & PLAN ICD-10-CM 1. Second trimester ([facility]) Z34.92 POCT urinalysis dipstick manually resulted 2. 14 weeks gestation of ([facility]) Z3A.14 Return OB: Patient presents today [...] of: Jose Barreto DO documented in this encounterSaint Mary's Hospital of Blue SpringsDxmjubwjps37-48-0937 Evaluation note* Encounter Date Diagnosis Assessment Notes [...] persistent asthma without complication (ICD-10 - J45.40) [employer] [facility] [employer] Other 03-23-2023 Evaluation note* Encounter Date Diagnosis [...] would consider doing a tendon sheath injection. [facility] Other 12-29-2022 Evaluation note* Encounter Date Diagnosis [...] acute issue arises. Jan,nxiety (ICD-10 - F41.9) [facility] [employer] Other 09-20-2022 NoteOPERATIVE NOTE OPERATION DATE: 11/03/2021 PROCEDURE: Repeat low transverse section. PREOPERATIVE DIAGNOSIS: 1. Intrauterine 39 weeks. 2. Previous . POSTOPERATIVE DIAGNOSIS: 1. Intrauterine 39 weeks. 2. Previous . ANESTHESIA: Spinal with Duramorph. SURGEON: Jose Barreto D.O. LUMBER STRAIGHTENER: JESSE Cruz URINE OUTPUT: Yellow and clear. [...] Recovery Room in stable condition.[facility] [id number] Note DISCHARGE SUMMARY DISCHARGE DATE: 11/13/2021 PRIMARY [...] and no longer on narcotics.[facility] CenterKtmipnyt85-26-4566 Evaluation note * Encounter Date Diagnosis Assessment [...] persistent asthma without complication (ICD-10 - J45.40) [employer] Other Evaluation noteNo InformationNortNazareth Hospital [employer] Other Evaluation note* Diagnosis Second trimester ([facility]) state, incidental 14 weeks gestation of ([facility]) documented [facility] this [facility]* Diagnosis Well woman exam with routine gynecological exam Routine gynecological examination Screening, , for anatomic survey ([facility]) Encounter for anatomic survey Exposure to STD [...] ironSurgical Historystomach surgery Surgical HistoryC sectionHospitalization Historychildbirths [facility] [employer] [facility] Other Summary Purpose Family History No Family History Records FoundNo Family History Records FoundNo Family History Records Found Advance Directives No Advanced Directives Records FoundNo Advanced Directives Records FoundNo Advanced Directives Records Found Additional Source Comments INFORMATION SOURCE (unrecogn ized section and content) DATE CREATED AUTHOR 03/20/2018 [facility] DATE CREATED AUTHOR AUTHOR'S ORGANIZ ATION 03/16/2022 [facility] DATE CREATED AUTHOR AUTHOR'S ORGANIZ ATION 12/18/2024 [facility] EPIC REASON FOR [...] BE BASED ON THE PRIMARY CLINICAL RECORDS. [facility] mylearnadfriend [facility]. provides no warranty or guarantee of the accuracy or completeness of information in this document.
--- OUTSIDE RECORDS SUMMARY | 2025-01-21 05:31 | XMS_ITS | Encounter Summary ---
Author Organization [facility] Address [address] [place] [address] Care Team Providers Care Mattress Spring Encaser Name Role Phone Unavailable Primary Care Provider Unavailabl e Encounter Details DateTypeDepartmentCare Team (Latest Contact Info)Lbtgzgdnaqj46/24/2025Bamboo flowsheet MOI CASTAÑEDA [address] [place] [address] Jose Barreto DO [address] [place], [facility]11 Social History Tobacco UseTypesPacks/DayYears UsedDateSmoking Tobacco: NeverSmokeless Tobacco: NeverAlcohol UseStandard Drinks/WeekCommentsYes2 (1 standard drink = 0.6 oz pure alcohol)Estimated Date of FenvxlxaLexonokwTbf69/12/2025Based on UltrasoundSex and Gender InformationValueDate RecordedSex Assigned at BirthNot on fileLegal ObqEvkqjz67/15/2023 6:54 PM EDTGender IdentityNot on fileSexual OrientationNot on filedocumented as of this encounter Plan of Treatment DateTypeDepartmentCare Team (Latest Contact Info)Idprwhxktre74/15/2025 10:30 AM ESTOffice Visit MOI CASTAÑEDA [address] [place] [address] Cindy Silva PA [address] [place] [address] documented as of this encounter Visit Diagnoses Not on filedocumented in this encounter
--- OUTSIDE RECORDS SUMMARY | 2025-01-21 05:31 | XMS_ITS | Clinical Summary ---
Author Organization [facility] Address [address] [place] [address] Phone Care Team Providers Care Manager Special Events Name Role Phone Unavailable Primary Care Provider Unavailabl e Social History Tobacco UseTypesPacks/DayYears UsedDateSmoking Tobacco: Never Assessed CommentsUnknownSex and Gender InformationValueDate RecordedSex Assigned at Not on fileLegal BgjFqvsor74/26/2022 11:36 AM ESTGender IdentityNot on file Sexual OrientationNot on file Plan of Treatment Not on file
--- OUTSIDE RECORDS SUMMARY | 2025-01-21 05:32 | XMS_ITS | Encounter Summary ---
Author Organization [facility] Address [address] [place] [address] Care Team Providers Care Advisor Advocate Angel Co Founder Name Role Phone Unavailable Primary Care Provider Unavailabl e Encounter Details DateTypeDepartmentCare Team (Latest Contact Info)Bjenizlkozm88/01/2025Bamboo flowsheet MOI CASTAÑEDA [address] [place] [address] Patricia Kelly, YOLA [address] [place] [address] Social History Tobacco UseTypesPacks/DayYears UsedDateSmoking Tobacco: NeverSmokeless Tobacco: NeverAlcohol UseStandard Drinks/WeekCommentsYes2 (1 standard drink = 0.6 oz pure alcohol)Estimated Date of NdmkwfdmPawmymejTzj55/12/2025Based on UltrasoundSex and Gender InformationValueDate RecordedSex Assigned at BirthNot on fileLegal ZqnDmjpnw00/15/2023 6:54 PM EDTGender IdentityNot on fileSexual OrientationNot on filedocumented as of this encounter Plan of Treatment DateTypeDepartmentCare Team (Latest Contact Info)Aumbhyueftr54/15/2025 10:30 AM ESTOffice Visit MOI CASTAÑEDA [address] [place] [address] Cindy Silva PA [address] [place] [address] [place] [address] documented as of this encounter Visit Diagnoses Not on filedocumented in this encounter
--- OUTSIDE RECORDS SUMMARY | 2025-01-21 05:32 | XMS_ITS | Encounter Summary ---
Author Organization [facility] Address [address] [facility] [place] [address] Care Team Providers Care Parts Specialist Name Role Phone Unavailable Primary Care Provider Unavailabl e Encounter Details DateTypeDepartmentCare Team (Latest Contact Info)Rvluyuwhoxq87/01/2025Travel Social History Tobacco UseTypesPacks/DayYears UsedDateSmoking Tobacco: NeverSmokeless Tobacco: NeverAlcohol UseStandard Drinks/WeekCommentsYes2 (1 standard drink = 0.6 oz pure alcohol)Estimated Date of ZbaemhbcUzpbzhbdQwl60/12/2025Based on UltrasoundSex and Gender InformationValueDate RecordedSex Assigned at BirthNot on fileLegal PevUyfzwa36/15/2023 6:54 PM EDTGender IdentityNot on fileSexual OrientationNot on filedocumented as of this encounter Plan of Treatment DateTypeDepartmentCare Team (Latest Contact Info)Nupidtofvak52/15/2025 10:30 AM ESTOffice Visit MOI CASTAÑEDA [address] [place] [phone] Cindy Silva PA [address] [facility] [address] [place], [place] [phone] documented as of this encounter Visit Diagnoses Not on filedocumented in this encounter
--- OUTSIDE RECORDS SUMMARY | 2025-01-21 05:32 | XMS_ITS | Clinical Summary ---
Author Organization [facility] Address [address] [place] [address] Care Team Providers Care Retoucher Photoengraving Name Role Phone Unavailable Primary Care Provider Unavailabl e Allergies Active AllergyReactionsCriticalityNoted DateCommentsPenicillin G008/29/2024 Other Reaction(s): Unknown QttnqflfnssQehpSbj04/26/2024 Other Reaction(s): Unknown Sulfa FnacxfedasvSmedk36/26/2024 Other Reaction(s): Unknown Medications MedicationSigDispense QuantityRefillsLast FilledStart [...] 1 capsule by mouth Daily5Active Encounters DateTypeDepartmentCare UvkuCscarwoqclm27/01/2025 11:30 AM ESTRoutine [facility] [address] [place] [address] [place] [phone] Patricia Kelly NP Third trimester ([facility]); 38 weeks gestation of ([facility])01/14/2025amboo flowsheet [facility] [address] [place] [address] Patricia Kelly, YOLA 01/14/20253205Ralhqu82/24/2025 3:50 PM ESTRoutine [facility] [address] [place] [address] Jose Barreto, DO Third trimester ([facility]); 37 weeks gestation of ([facility])01/07/2025amb flowsheet [facility] [address] [place] [address] Jose Barreto, DO 01/06/20255018Mzfbwv94/17/2025 9:50 AM ESTRoutine [facility] [address] [place] [address] Patricia Kelly, YOLA Third trimester ([facility]); 36 weeks gestation of ([facility])12/31/2024[facility] flowsheet [facility] [address] [place] [address] Patricia Kelly, YOLA 12/31/20249150Epdmby69/12/2025 3:00 PM ESTRoutine [facility] [address] [place] [address] Jose Barreto, DO Third trimester ([facility]); 35 weeks gestation of ([facility])5Clinisync Result Encounter [facility] External Department Unsolicited Jose Barreto, DO 12/26/2024amb flowsheet [facility] [address] [place] [address] Jose Barreto, DO 12/25/20240379Qaalbm85/06/2025Clinisync Result Encounter [facility]OMS External Department Unsolicited Jose Barreto, DO 12/17/2024 1:50 PM ESTRoutine [facility] SAAV[facility] [address] [place] [address] Cindy Silva PA Third trimester ([facility]); 34 weeks gestation of ([facility])12/17/2024amboo flowsheet [facility]ELIX[facility] [address] [place] [address] [place] [address] Cindy Silva PA 12/17/20243358Pwavta46/21/2025 2:10 PM EDTRoutine [facility] [place] [address] Jose Barreto DO 32 weeks gestation of ([facility]); Third trimester ([facility]); Anemia, unspecified type12/04/2024 1:30 PM EDTAncillary Procedure [facility] CASTAÑEDA [address] [place] [address] [place] [address] size inconsistent with dates ([facility])12/03/20244753Xybytf34/07/2025 2:30 PM EDTRoutine [facility] CASTAÑEDA [address] [place] [address] [place] [address] Patricia Kelly NP size inconsistent with dates ([facility]) (Primary Dx); Third trimester ([facility]); 30 weeks gestation of ([facility])11/20/2024amboo flowsheet [facility] CASTAÑEDA [address] [place] [address] [place] [address] Patricia Kelly NP 11/20/20240230Dkhhtm75/22/2025 10:00 AM EDTRoutine [facility] [place] [address] Jose Barreto DO Anemia, unspecified type (Primary Dx); Third trimester ([facility]); 28 weeks gestation of ([facility])11/05/2024linisync Result Encounter NOMS External Department Unsolicited Patricia KellyYOLA 11/05/2024amboo flowsheet [facility] CASTAÑEDA [address] [place] [address] Jose Barreto DO 11/05/20242966Lfsdjp41/10/2025 3:00 PM EDTRoutine [facility] CASTAÑEDA [address] [facility] [place] [address] Cindy Silva PA 26 weeks gestation of ([facility]); Second trimester ([facility]); Anemia during in second trimester ([facility])10/24/2024amboo flowsheet [facility] CASTAÑEDA [address] [place] [address] Cindy Silva PA 10/24/2024Travelfrom Last 3 Months Family History Medical HistoryRelationNameCommentsCancerFatherChuck BarnhartDiabetesFatherChuck BarnhartCerebrovascular accidentMaternal GrandfatherDiabetesMaternal Grandmother Tanja LeberHeart failureMaternal GrandmotherCharlotte LeberCancerMotherVicki BarnhartRelationNameStatusCommentsFatherChuck BarnhartAliveMaternal Grandfather Maternal GrandmotherCharlotte LeberAliveMotherVicki BarnhartAlive Social History Tobacco UseTypesPacks/DayYears UsedDateSmoking Tobacco: NeverSmokeless Tobacco: Never Tobacco Cessation:Counseling Given: Not Answered Alcohol UseStandard Drinks/WeekCommentsYes2 (1 standard drink = 0.6 oz pure alcohol)Estimated Date of FxvcjzjyNanfqvqcMfa92/12/2025ased on UltrasoundSex and Gender InformationValueDate RecordedSex Assigned at BirthNot on fileLegal VbzXpgdom10/15/2023 6:54 PM EDTGender IdentityNot on fileSexual OrientationNot on file Last Filed Vital Signs Vital SignReadingTime TakenCommentsBlood Xecbovtq740/6212 11:31 AM EST Pulse--Temperature--Respiratory Rate--Oxygen Saturation--Inhaled Oxygen Concentration--Bnjqnr40.8 kg (198 lb)01/14/2025 11:31 AM YWJTryhbg656.7 cm (5' 8 )07/14/2023 11:01 AM EDTBody Mass Index30.11007/14/2023 11:01 AM EDT Plan of Treatment DateTypeDepartmentCare Team (Latest Contact Info)Eboxtnvrymc28/15/2025 10:30 AM ESTOffice Visit MOI CASTAÑEDA [address] [facility] [place] [address] Cindy Silva PA [address] [facility] [address] [place] [address] Health MaintenanceDue DateLast DoneCommentsHPV/Qpvmgh2409/21/2020OVID-19 Vaccine ( season), 04/09/2020Influenza Vaccine (#1) Cervical Cancer Gidkpsvwu58/16/2028Pap Smear08/30/2027 08/29/2024, 07/13/2023, 3Pneumococcal Vaccine: Pediatrics (0 to 5 Years) and At-Risk Patients (6 to 64 Years)Aged OutNo longer eligible based on patient's age to complete this topic Procedures Procedure NamePriorityDate/TimeAssociated DiagnosisCommentsPOCT URINALYSIS BRUFUZGMZcstenm33/01/2025 11:32 AM EST Third trimester ([facility]) POCT URINALYSIS BUPPSUWRKgthkmr42/24/2025 4:17 PM EST 37 weeks gestation of ([facility]) POCT URINALYSIS OUCYDXRDJwyisaq05/17/2025 12:48 PM EST 36 weeks gestation of ([facility]) POCT URINALYSIS PIQPZEJXJkqahfw45/12/2025 3:29 PM EST 35 weeks gestation of ([facility]) STREP GP B CULTURE+SIRYMtsdxfs39/12/2025 3:07 PM EST [facility] UA (CLEAN/CATCH) ULTRASONOGRAPHER/MICRO IF IND.Czdlvaw7512/20/2024 7:55 AM EST POCT URINALYSIS FGJKXIBHOaybmwi61/03/2025 2:04 PM EST Third trimester ([facility]) POCT URINALYSIS DCOBAXHHSfipaba40/21/2025 2:09 PM EDT 32 weeks gestation of ([facility]) Third trimester ([facility]) US OB FOLLOW UP TRANSABDOMINAL USPSSZXWZrmqdoc84/21/2025 1:52 PM EDT size inconsistent with dates ([facility]) POCT URINALYSIS RRPKQXWVWsjgbfs39/07/2025 2:37 PM EDT Third trimester ([facility]) ALL CBC WITH AUTO NFXONpoutam26/22/2025 11:16 AM EDT POCT URINALYSIS ABHPFRWWMnsdsjw85/22/2025 10:14 AM EDT Third trimester ([facility]) POCT URINALYSIS IEZRFMNYUquoqmv57/10/2025 3:11 PM EDT 26 weeks gestation of ([facility]) Second trimester ([facility]) PAP DFNFFSsamzju55/16/2025 12:00 AM EDTfrom Last 3 Months or Most Recently Relevant to Health Maintenance Results * (ABNORMAL) POCT urinalysis dipstick manually resulted (01/14/2025 11:32 AM EST) Only the most recent of9 resultswithin the time period is included. ComponentValueRef RangeTest MethodAnalysis TimePerformed AtPathologist Signature Color, UADark AmberClarity, UAClearGlucose, UANegativeNegative - 1999(110) ++++ mg/dLBilirubin, UANegativeNegative - 4(70) +++ mg/dLKetones, UANegativeNegative - 160(16) ++++ mg/dLSpec Grav, UA1.0301 - 1.03Blood, UANegativeNegative - 50 Guy/mcLpH, UA6.05 - 9Protein, UA1+Negative - 2000(20) ++++ mg/dLUrobilinogen, UA 1.00.2 - 12 mg/dLLeukocytes, UANegativeNegative - 500+++ Corona/mcLNitrite, UA NegativeNegative - PositiveSpecimen (Source)Anatomical Location / Laterality Collection Method / VolumeCollection TimeReceived BdofSxcso92/01/2025 11:32 AM EST Narrative Authorizing ProviderResult TypeResult StatusPatricia Kelly POINT OF CARE TEST ENTER/EDIT ORDERABLESFinal Result * STREP GP B CULTURE+RFLX (12/26/2024 3:07 PM EST)ComponentValueRef RangeTest MethodAnalysis TimePerformed AtPathologist SignatureSTREP GP B CULTURE+RFLX ??Strep Gp B Culture+Rflx TBHSTREP GP B CULTURE+RFLXNegativeTBHSTREP GP B CULTURE+RFLXCenters for Disease Control and Prevention (CDC) andTBHSTREP GP B CULTURE+RFLXAmerican Congress of Obstetricians and GynecologistsTBHSTREP GP B CULTURE+RFLX(ACOG) guidelines for prevention of group BTBHSTREP GP B CULTURE+RFLXstreptococcal (GBS) disease specify co-collection ofTBHSTREP GP B CULTURE+RFLXa vaginal and rectal swab specimen to maximizeTBHSTREP GP B CULTURE+RFLXsensitivity of GBS detection. Per the CDC and ACOG,TBHSTREP GP B CULTURE+RFLXswabbing both the lower vagina and rectumTBHSTREP GP B CULTURE+RFLXsubstantially increases the yield of detectionTBHSTREP GP B CULTURE+RFLXcompared with sampling the vagina alone.TBH STREP GP B CULTURE+RFLXPenicillin G, ampicillin, or cefazolin are indicatedTBH STREP GP B CULTURE+RFLXfor intrapartum prophylaxis of GBSTBHSTREP GP B CULTURE+RFLXcolonization. Reflex susceptibility testing should beTBHSTREP GP B CULTURE+RFLXperformed prior to use of clindamycin only on GBSTBHSTREP GP B CULTURE+RFLXisolates from penicillin-allergic women who areTBHSTREP GP B CULTURE+RFLXconsidered a high risk for anaphylaxis. Treatment withTBHSTREP GP B CULTURE+RFLXvancomycin without additional testing is warranted ifTBHSTREP GP B CULTURE+RFLXresistance to clindamycin is noted.TBHSTREP GP B CULTURE+RFLX Performed at: - [facility] Paris CrossingTBHSTREP GP B CULTURE+[id number] [place], [place] [id number] GP B CULTURE+RFLXLab Director: Torres Ramírez PhD, Phone: [phone] (Source)Anatomical Location / Laterality Collection Method / VolumeCollection TimeReceived Time12/26/2024 3:07 PM EST 12/26/2024 8:36 PM EST Narrative CLIN[facility]NC - 12/31/2024 3:08 PM EST Authorizing ProviderResult TypeResult StatusCorey Mary Lou DOLAB BLOOD ORDERABLES Final ResultPerforming OrganizationAddressCity/State/ZIP CodePhone Number CLINISYNC [facility] * (ABNORMAL) [facility] UA (CLEAN/CATCH) ULTRASONOGRAPHER/MICRO IF IND. (12/20/2024 7:55 AM EST) ComponentValueRef RangeTest MethodAnalysis TimePerformed AtPathologist SignatureCOLOR URINEYELLOWYELLOWTBHCLARITY URINECLEARCLEARTBHSPECIFIC GRAVITY URINE1.0201.005 - 1.025TBHPH URINE6.05.0 - 9.0TBHPROTEIN URINENEGATIVE NEG/TRACE mg/dLTBHGLUCOSE URINE UANEGATIVENEGATIVE mg/dLTBHBILIRUBIN URINE NEGATIVENEGATIVETBHKETONES URINETRACE(A)NEGATIVE mg/dLTBHBLOOD URINENEGATIVE NEGATIVETBHNITRITE URINENEGATIVENEGATIVETBHUROBILINOGEN URINE0.20.2 - 1.0 EU/dLTBHLEUKOCYTE ESTERASE URINENEGATIVENEGATIVETBHURINE MICROSCOPIC INDICATED NOTBHSpecimen (Source)Anatomical Location / LateralityCollection Method / VolumeCollection TimeReceived Time12/20/2024 7:55 AM EST12/20/2024 8:07 AM EST Narrative CHARISYNC - 12/20/2024 8:12 AM EST Authorizing ProviderResult TypeResult StatusCorejohn Mary Lou DOCLINISYNCFinal Result Performing OrganizationAddressCity/State/ZIP CodePhone Number RODOLFO [facility] * US OB follow up transabdominal approach [...] CBC WITH AUTO DIFF (11/05/2024 11:16 AM EDT)ComponentValueRef RangeTest MethodAnalysis TimePerformed AtPathologist SignatureTBH WBC12.4(H) 4.0 - 11.0 10 3/uLTBHTBH RBC3.46(L)4.20 - 5.40 10 6/uLTBHTBH HGB10.7(L)12.0 - 16.0 g/dLTBHTBH HCT32.0(L)36.0 - 48.0 %TBHTBH MCV92.581.0 - 99.0 fLTBHTBH MCH 30.926.7 - 34.0 pgTBHTBH MCHC33.429.9 - 35.2 g/dLTBHTBH RDW12.711.0 - 15.0 % TBHTBH EUU734700 - 450 10 3/uLTBHTBH MPV9.59.5 - 13.5 fLTBHNEUTROPHILS PERCENT AUTO78.1(H)43.0 - 75.0 %TBHLYMPHOCYTES PERCENT AUTO12.3(L)20.5 - 60.0 %TBH MONOCYTES PERCENT AUTO6.21.7 - 12.0 %TBHTBH EO %1.20.9 - 7.0 %TBHBASOPHILS PERCENT AUTO0.30.2 - 2.0 %TBHIMMATURE GRANULOCYTES PCT AUTO1.9(H)0.0 - 0.5 % TBHNEUTROPHILS ABSOLUTE AUTO9.7(H)1.4 - 6.5 10 3/uLTBHLYMPHOCYTES ABSOLUTE AUTO1.51.2 - 3.8 10 3/uLTBHMONOCYTES ABSOLUTE AUTO0.80.3 - 0.8 10 3/uLTBHTBH EO #0.20.0 - 0.7 10 3/uLTBHBASOPHILS ABSOLUTE AUTO0.00.0 - 0.1 10 3/uLTBH IMMATURE GRANULOCYTES ABS AUTO0.24(H)0.00 - 0.03 10 3/uLTBHSpecimen (Source) Anatomical Location / LateralityCollection Method / VolumeCollection Time Received Time11/05/2024 11:16 AM EDT11/05/2024 11:22 AM EDT Narrative CLINISYNC - 11/05/2024 11:37 AM EDT Authorizing ProviderResult TypeResult StatusPatricia Kelly NPCLINISYNCFinal ResultPerforming OrganizationAddressCity/State/ZIP CodePhone Number CLINISYNC [facility] * Pap Smear (08/29/2024 12:00 AM EDT)Specimen (Source)Anatomical Location / LateralityCollection Method / VolumeCollection TimeReceived TimeSwabCervical swab / Unknown Narrative Authorizing ProviderResult TypeResult StatusFazio Nurse Noms [facility]cp ObLAB CYTOLOGY ORDERABLESFinal ResultPerforming OrganizationAddressCity/State/ZIP CodePhone Number EXTERNAL LAB from Last 3 Months or Most Recently Relevant to [place] [address]
--- OUTSIDE RECORDS SUMMARY | 2025-01-21 05:32 | XMS_ITS | Patient Health Record ---
Author Organization [facility] vices Address [address] [place] [phone] Care Team Providers Care Garage Laborer Name Role Phone LouannAlessioAlma ortiz Unavailable [phone] Mya Marte Unavailable [phone] Allergies Allergen (clinical drug ingredient) Drug/Non Drug Allergy documented on EMR Reaction Allergy Type Onset Date Status PenicillinUnknownDrug AllergyActiveSubstance with sulfonamide structure and antibacterial mechanism of action (substance)Sulfa AntibioticsUnknownDrug AllergyActive Reason For Referral No Information Social History Sex Assigned At : Social History Observation Description Sex Assigned At Female Social History Tobacco Use:Social InfoQuestionAnswerNotesTobacco Use/SmokingAdditional Findings: Tobacco UserLight cigarette smoker ((1-9 cigs/day) Problems Problem Type SNOMED Code ICD Code Onset Dates Problem Status W/U Status Risk Notes Problem Tobacco user (175312348) Cigaret te nicotine dependence without complication (F17.210) ActiveconfirmedProblemBody mass index 25-29 - overweight (056939969)BMI 25.0- 25.9,adult (Z68.25)Activeconfirmed Vital Signs Heart Rate 62 /min 02/06/2024 Height-cm172.72 cm02/06/2024lood pressure nyxmadduu99 mm Hg02/06/2024Weight-kg 74.84 kg02/06/20245073Kxoujp97 in02/06/2024lood pressure mm Hg 02/06/20244340Ybzrua611 lbs104/08/2023BMI25.09 kg/m202/06/2024 Encounters Encounter Location Date Provider Diagnosis [facility] [address] [place], [place] [phone] 02/06/2024 Mya Marte Encounter for scre ening [...] Start Date Coverage End Date Jennifer Peng [facility] [address] [place] [phone] Gibson Mckeon - patient is the [id number] 2022Medicaid C after Azeem [address] [place], [place] [id number], [employer]araSelf - patient is the [id number] 2022
[2025-01-21] MEDS: 0.9 % SODIUM CHLORIDE 1,000 ML 1000 ML IV ×2 (05:55→06:24)
[2025-01-21 06:08] LABS: Hematocrit 32.4 % (36.0-48.0); Hemoglobin 11.0 g/dL (12.0-16.0); Immature Granulocytes Abs Auto 0.30 10^3/uL (0.00-0.03); Immature Granulocytes Pct Auto 2.4 % (0.0-0.5); Lymphocytes Absolute Auto 1.9 10^3/uL (1.2-3.8); Mean Corpuscular HGB Conc 34.0 g/dL (29.9-35.2); Mean Corpuscular Hemoglobin 31.3 pg (26.7-34.0); Mean Corpuscular Volume 92.0 fL (81.0-99.0); Platelet Count 287 10^3/uL (150-450); Red Blood Count 3.52 10^6/uL (4.20-5.40); White Blood Count 12.7 10^3/uL (4.0-11.0)
[2025-01-21 06:08] LABS: Glucose Urine UA NEGATIVE (NEGATIVE)
[2025-01-21 06:15] LABS: Cast Seen? NONE SEEN #/LPF (NONE SEEN); Crystals Seen? None Seen #/HPF (None Seen); Urine Culture Indicated YES-FRMC
[2025-01-21 06:27] LABS: Cannabinoid Screen Urine NEGATIVE (NEGATIVE); Methamphetamines Screen Urine NEGATIVE (NEGATIVE); Tricyclic Antidepressant Urine NEGATIVE (NEGATIVE)
[2025-01-21] MEDS: FAMOTIDINE/PF 20 MG/2 ML VIAL IV (07:16)
[2025-01-21] MEDS: CITRIC ACID/SODIUM CITRATE 30 ML SOLUTION ORACIT SHOHL'S SOLN PO (07:17)
[2025-01-21] MEDS: CEFAZOLIN SODIUM/DEXTROSE,ISO 2 GM/50 ML PIGGYBACK IV (07:26)
--- NOTE | 2025-01-21 08:43 | P.ON_ITS ---
Brief Operative Note Date of procedure: 01/21/25 Pre-op diagnosis general: iup at 39wks, previous c/s,desires sterilization Post-op diagnosis: same as pre-op Procedure: NAME OF PROCEDURE: [ section with bilateral salpingectomy ] PROCEDURE: Patient was taken back to the Operating Room where she was given a spinal anesthesia with Duramorph without difficulty. She was prepped and draped in the normal sterile fashion. A Pfannenstiel skin incision was then made 2?cm above the symphysis pubis and carried down to underlying rectus fascia using a Bovie. The fascia was incised in the midline and extended laterally using Rapp scissors. Two Tammi clamps were placed on the superior aspect of the fascia and dissected off the underlying rectus muscles. The same was performed on the inferior aspect as well. The muscles were then in the midline. Per itoneum was identified and entered bluntly. The peritoneum was then extended superiorly and inferiorly with good visualization of the bladder. The bladder blade was inserted. Vesicouterine peritoneum was identified, tented up, and entered with Metzenbaum scissors. A bladder flap was then created digitally. The bladder blade was reinserted. A low transverse incision was made on the patient's uterus and extended laterally digitally. The was then delivered atraumatically after the bladder blade was removed in the cephalic position. The cord was clamped and cut. Cord blood was obtained. The infant was handed off to awaiting team. The patient's placenta was spontaneously delivered. The uterus was then exteriorized. The uterus was cleared of all clots and debris. The bladder blade was reinserted. The patient's uterine incision was closed using #0 Vicryl in a running lock fashion. Excellent hemostasis was assured.? The rt tube was identified and grasped with babock, the ligasure was used to transect and ligate the tube in its entirity, this was done on the contralateral side as well. The uterus was then returned to the patient's abdomen. The patient's abdomen was copiously irrigated using warm saline. Peritoneal gutters were cleared of all clots and debris. Again excellent hemostasis was assured. The patient's fascia was closed using #0 Vicryl in a running fashion. The patient's skin was closed using 4-0 Vicryl subcuticularly. The patient tolerated the procedure well. Sponge, lap, and needle counts were correct x2. The patient was taken to the Recovery Room in stable condition. Surgeon: Jose Barreto Coordinator Mining Products: Debi Canela Estimated blood loss (mL): 575 Pathology: other (tubes) Condition: stable Disposition: floor Urinary Catheter Management Urinary Catheter Management Urethral: Cath placed during this visit: no
--- NOTE | 2025-01-21 08:44 | P.OBPRC_ITS ---
Procedure Pre-op/Post-op diagnoses: Pre-Op/Post-Op Diagnoses Operation Date: 01/21/25 07:30 <No data on this case meets the specified criteria> Procedure: Procedures Operation Date: 01/21/25 07:30 Actual Procedure Side Surgeon p Repeat with bilateral salpingectomy Bilateral Jose Barreto DO Construction Trades Contractor: Debi Canela Estimated blood loss (mL): 575 Disposition: floor Anesthesia type: Spinal
[2025-01-21] MEDS: 0.9 % SODIUM CHLORIDE 10 ML VIAL 30 ML INJ (08:50)
[2025-01-21] MEDS: BUPIVACAINE HCL 0.5% PF 50 MG/10 ML VIAL 30 ML INJ (08:50)
[2025-01-21] MEDS: 0.9 % SODIUM CHLORIDE 1,000 ML 125 ML IV (10:47)
[2025-01-21] MEDS: CLINDAMYCIN PHOSPHATE/D5W 900 MG/50 ML PREMIX 100 MG IV (16:40)
[2025-01-21] MEDS: KETOROLAC TROMETHAMINE 30 MG/ML VIAL IVP (17:40)
[2025-01-21] MEDS: ENOXAPARIN SODIUM 40 MG/0.4 ML SYRINGE SUBQ (20:37)
[2025-01-22] VITALS (8 sets, daily range): BP systolic 108–120; BP diastolic 56–67; PULSE 74–84; TEMP 36.6–37.1
[2025-01-22] MEDS: KETOROLAC TROMETHAMINE 30 MG/ML VIAL IVP ×2 (00:27→07:46)
[2025-01-22] MEDS: CALCIUM CARBONATE 500 MG (200MG ELEMENTAL) TAB CHEW PO ×2 (05:13→16:26)
[2025-01-22 07:12] LABS: Hematocrit 27.8 % (36.0-48.0); Hemoglobin 9.0 g/dL (12.0-16.0); Immature Granulocytes Abs Auto 0.33 10^3/uL (0.00-0.03); Immature Granulocytes Pct Auto 1.9 % (0.0-0.5); Lymphocytes Absolute Auto 2.2 10^3/uL (1.2-3.8); Mean Corpuscular HGB Conc 32.4 g/dL (29.9-35.2); Mean Corpuscular Hemoglobin 30.5 pg (26.7-34.0); Mean Corpuscular Volume 94.2 fL (81.0-99.0); Platelet Count 246 10^3/uL (150-450); Red Blood Count 2.95 10^6/uL (4.20-5.40); White Blood Count 17.3 10^3/uL (4.0-11.0)
--- NOTE | 2025-01-22 08:40 | P.OBPN_ITS ---
OB - PN: Subj Subjective Patient comments: no complaints and pain well controlled [place] status: doing well Exam Constitutional Vital Signs, click to edit/add: Last Vital Signs Temp 98.2 F 01/22/25 04:17 Pulse 74 01/22/25 04:17 Resp 16 01/22/25 04:18 BP 108/57 01/22/25 04:17 Pulse Ox 100 01/21/25 20:12 O2 Del Method Room Air 01/22/25 04:18 Documenting provider has reviewed patient's vital signs: yes Common normals: no apparent distress Respiratory Common normals: normal respiratory effort and clear to auscultation bilaterally Cardio Common normals: regular rate and regular rhythm GI Common normals: Normal to inspection, nondistended, normoactive bowel sounds present Extremity Common normals: no clubbing, cyanosis or edema and no calf tenderness Results Labs Labs: Short CBC 01/22/25 Range/Units 06:57 WBC 17.3 H (4.0-11.0) 10^3/uL Hgb 9.0 L (12.0-16.0) g/dL Hct 27.8 L (36.0-48.0) % Plt Count 246 (150-450) 10^3/uL Urinary Catheter Management Urinary Catheter Management Urethral: Cath placed during this visit: yes, but has since been removed by the nu rse Insertion date: 01/21/25 Insertion time: 07:55 Removal date: 01/21/25 Removal time: 17:40 OB - PN: A/P Plan - day: 1 Plan: routine postop care Time Spent with Patient Time: Total time spent is greater than 50% in coordination of care (as documented) at patient's floor/unit and/or counseling patient: Total time spent with greater than 50% in coordination of care (as documented) at patient's floor/unit and/or counseling patient: less than 15 minutes
[2025-01-22] MEDS: DOCUSATE SODIUM 100 MG CAPSULE PO ×2 (10:13→21:56)
[2025-01-22] MEDS: ACETAMINOPHEN 500 MG TABLET 1000 MG PO (10:19)
[2025-01-22] MEDS: IBUPROFEN 400 MG TABLET 800 MG PO ×2 (13:59→21:57)
[2025-01-22] MEDS: OXYCODONE HCL/ACETAMINOPHEN 5MG/325MG 2 TAB PO ×2 (16:26→20:30)
[2025-01-22] MEDS: ENOXAPARIN SODIUM 40 MG/0.4 ML SYRINGE SUBQ (21:56)
--- NOTE | 2025-01-22 23:42 | PC.NURSE ---
incision to lower abdomen well approximated with 22 anita intact. No drainage noted.
[2025-01-23] MEDS: OXYCODONE HCL/ACETAMINOPHEN 5MG/325MG 2 TAB PO ×2 (01:41→09:01)
[2025-01-23] MEDS: IBUPROFEN 400 MG TABLET 800 MG PO (06:31)
--- NOTE | 2025-01-23 07:39 | PM.OBPN ---
OB - PN: Subj Subjective Patient comments: no complaints and pain well controlled [place] status: doing well Exam Constitutional Vital Signs, click to edit/add: Last Vital Signs Temp 97.9 F 01/22/25 23:37 Pulse 75 01/22/25 23:37 Resp 18 01/22/25 23:37 BP 109/56 01/22/25 23:37 Pulse Ox 100 01/21/25 20:12 O2 Del Method Room Air 01/22/25 23:42 Documenting provider has reviewed patient's vital signs: yes Common normals: no apparent distress Respiratory Common normals: normal respiratory effort and clear to auscultation bilaterally Cardio Common normals: regular rate and regular rhythm GI Common normals: Normal to inspection, nondistended, normoactive bowel sounds present Extremity Common normals: no clubbing, cyanosis or edema and no calf tenderness Urinary Catheter Management Urinary Catheter Management Urethral: Cath placed during this visit: yes, but has since been removed by the nurse Insertion date: 01/21/25 Insertion time: 07:55 Removal date: 01/21/25 Removal time: 17:40 OB - PN: A/P Plan - day: 2 Plan: routine postop care, discharge home and other (fu 1wk) Time Spent with Patient Time: Total time spent is greater than 50% in coordination of care (as documented) at patient's floor/unit and/or counseling patient: Total time spent with greater than 50% in coordination of care (as documented) at patient's floor/unit and/or counseling patient: less than 15 minutes
[2025-01-23] MEDS: DOCUSATE SODIUM 100 MG CAPSULE PO (09:02)
[2025-01-23 09:04] VITALS: BP 117/69; PULSE 70; TEMP 35.8
== END 2025-01-23 11:55 | disposition home or self-care (01) | DRG 785 ==
PROVIDERS: Admitting Provider Obstetrics & Gynecology; Visit Provider Obstetrics & Gynecology
PROC: 10D00Z1 Extraction of Products of Conception, Low, Open Approach (ICD-10-PCS; CPT 59514; principal; 2025-01-21 07:30)
DX: O34.211 Maternal care for low transverse scar from previous cesarean delivery (principal); Z3A.39 39 weeks gestation of pregnancy; Z37.0 Single live birth; Z30.2 Encounter for sterilization
CPT/HCPCS: 36415; 51702; 59050; 64488; 80307; 81001; 85025; 86850; 86900; 86901; 87086; 88302; 94667; 94668; J0131; J0665; J0690; J0736; J1100; J1200; J1650; J1885; J2274; J2371; J2405; J2590; J3490